=== PATIENT | male | born 1985 | race Asian ===

== ENCOUNTER 2016-10-21 18:33 | Inpatient (IN) | payer MEDICAID ==
--- NOTE | 2016-10-21 19:17 | ED Physician Chart ---
Chief Complaint/HPI - Patient Information Date Seen:: 10/21/16 Time Seen:: 19:00 Chief Complaint:: fever History of Present Illness:: THIS IS A 30 YO DIALYSIS PATIENT HERE WITH CONCERNED ABOUT HIS ABDOMINAL PAIN AND FAST HEART RATE. HE HAD DIALYSIS EARLIER TODAY. HE DENIES VOMITING AND NAUSEA. HE HAS BEEN HERE FOUR TIMES IN THE PAST. 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 HE IS HARD OF HEARING. HE ALSO STILL MAKES SOME URINE. HE DENIES A COUGH BUT HAS SOB AT TIMES. Allergies:: Allergies Allergy/AdvReac Type Severity Reaction Status Date / Time No Known Allergies Allergy Verified 02/20/16 12:38 Vitals:: Vital Signs - 8 hr 10/21/16 18:52 Temp 100.6 F HR 147 RR 16 BP 132/64 O2 Sat % 97 Historian:: Patient, Medical Records Review:: Nurse's Note Reviewed, Transfer documents Reviewed Review of Systems - Review of Systems General/Constitutional: Fever, No chills, No weight loss, Weakness, No diaphoresis, No edema, No loss of appetite Skin: No skin lesions, No rash, No bruising Head: No headache, No light-headedness Eyes: No loss of vision, No pain, No diplopia ENT: No earache, No nasal drainage, No sore throat, No tinnitus Neck: No neck pain, No swelling, No thyromegaly, No stiffness, No mass noted Cardio Vascular: No chest pain, No palpitations, No PND, No orthopnea, No edema Pulmonary: No SOB, No cough, No sputum, No wheezing GI: No nausea, No vomiting, No diarrhea, Pain, No melena, No hematochezia, No constipation, No hematemesis G/U: No dysuria, No frequency, No hematuria Musculoskeletal: Bone or joint pain, No back pain, No muscle pain Endocrine: No polyuria, No polydipsia Psychiatric: No prior psych history, No depression, No anxiety, No suicidal ideation Hematopoietic: No bruising, No lymphadenopathy Allergic/Immuno: No urticaria, No angioedema Neurological: No syncope, No focal symptoms, No weakness, No paresthesia, No headache, No seizure, No dizziness, No confusion, No vertigo Past Medical History - Past Medical History Obtainable: Yes Past Medical History: HTN, DM, ESRD, Arthritis Family History: None Social History: Non Smoker, No Alcohol, No Drug Use Surgical History: other (SHUNT PLACEMENT AND RIGHT KIDNEY TRANSPLANT) Family Medical History - Family Member Mother Ethnicity: Non- Living Status: Still Living Hx Family Cancer: No Hx Family Coronary Artery Disease: No Hx Family Congestive Heart Failure: No Hx Family Hypertension: No Hx Family Stroke: No Hx Family Diabetes: No Hx Family Seizures: No Hx Family Dementia: No Hx Family AIDS: No Hx Family HIV: No Hx Family COPD: No Hx Family Hepatitis: No Hx Family Psychiatric Problems: No Hx Family Tuberculosis: No Physical Exam - Physical Examination General/Constitutional: Awake, Well-developed, well-nourished, Alert, No distress, GCS 15, Non-toxic appearing, Ambulatory Head: Atraumatic Eyes: Lids, conjuctiva normal, PERRL, EOMI Skin: Nl inspection, No rash, No skin lesions, No ecchymosis, Well hydrated, No lymphadenopathy ENMT: External ears, nose nl, Nasal exam nl, Lips, teeth, gums nl Neck: Nontender, Full ROM w/o pain, No JVD, No nuchal rigidity, No bruit, No mass, No stridor Respiratory: Nl effort/Exclusion, Clear to Auscultation, No Wheeze/Rhonchi/Rales Cardio Vascular: RRR, No murmur, gallop, rubs, NL S1 S2 GI: No organomegaly, No hernia, Normal BS's, Nondistended, No mass/bruits, No McBurney tenderness Other GI comments:: GENERALIZE TENDERNESS WITH NO REBOUND. : No CVA tenderness Extremities: No tenderness or effusion, Full ROM, normal strength in all extremities, No edema, Normal digits & nails Neuro/Psych: Alert/oriented, DTR's symmetric, Normal sensory exam, Normal motor strength, Judgement/insight normal, Mood normal, Normal gait, No focal deficits Misc: normal gait, Normal back, No paraspinal tenderness Labs/Radiology/EKG Results - Lab Results Results: Abnormal Lab Results 10/21/16 10/21/16 10/21/16 19:12 19:12 19:12 WBC 16.4 H D RBC 4.06 L Hgb 11.3 L Hct 34.4 L D MCV 84.6 MCH 27.9 MCHC Differential 33.0 RDW 15.3 Plt Count 201 D MPV 7.8 Neutrophils % 81.2 H Lymphocytes % 8.5 L Monocytes % 9.5 Eosinophils % 0.8 Basophils % 0.0 PT 12.7 H INR 1.21 Sodium Potassium Chloride Carbon Dioxide Anion Gap BUN Creatinine Est GFR ( Amer) Est GFR (Non-Af Amer) BUN/Creatinine Ratio Glucose Whole Bld Lactic Acid Calcium Total Bilirubin AST ALT Alkaline Phosphatase Troponin I Total Protein Albumin Globulin Albumin/Globulin Ratio Triglycerides 87 Cholesterol 128 LDL Cholesterol Direct 31 L HDL Cholesterol 69 TSH 10/21/16 10/21/16 10/21/16 19:12 19:12 19:12 WBC RBC Hgb Hct MCV MCH MCHC Differential RDW Plt Count MPV Neutrophils % Lymphocytes % Monocytes % Eosinophils % Basophils % PT INR Sodium 131 L Potassium 3.8 Chloride 92 L Carbon Dioxide 21.5 Anion Gap 21.3 H BUN 31 H Creatinine 6.8 H* Est GFR ( Amer) 12.3 Est GFR (Non-Af Amer) 10.1 BUN/Creatinine Ratio 4.6 Glucose 208 H Whole Bld Lactic Acid Calcium 10.3 Total Bilirubin 2.0 H AST 82 H ALT 74 H Alkaline Phosphatase 193 H Troponin I 0.01 Total Protein 7.1 Albumin 4.4 Globulin 2.7 Albumin/Globulin Ratio 1.6 Triglycerides Cholesterol LDL Cholesterol Direct HDL Cholesterol TSH 1.28 10/21/16 19:12 WBC RBC Hgb Hct MCV MCH MCHC Differential RDW Plt Count MPV Neutrophils % Lymphocytes % Monocytes % Eosinophils % Basophils % PT INR Sodium Potassium Chloride Carbon Dioxide Anion Gap BUN Creatinine Est GFR ( Amer) Est GFR (Non-Af Amer) BUN/Creatinine Ratio Glucose Whole Bld Lactic Acid 1.08 Calcium Total Bilirubin AST ALT Alkaline Phosphatase Troponin I Total Protein Albumin Globulin Albumin/Globulin Ratio Triglycerides Cholesterol LDL Cholesterol Direct HDL Cholesterol TSH - Radiology Results Results: CT SCAN OF THE ABDOMEN = THE FINDING ARE CONSISTENT WITH SEVERLY DISTENDED GALLBLADDER, EVIDENCE OF PANCREATITIS. - EKG Interpretations EKG Time:: 18:56 Rate & Rhythm: 135 SINUS TACHYCARDIA Clarissa: RIGHT Intervals: NO ECTOPY NOTED Assessment - Assessment General Assessment: THIS PATIENT'S FINDINGS ARE CONSISTENT WITH GALLBLADDER DISEASE AND SINCE HE IS AN ESRD PATIENT HE SHOULD NEEDS AN EVALUATION BY GI AND THEN A SURGEON IF NECESSARY. THE PATIENT WAS GIVEN TYLENOL AND ANTIBIOTICS WITH A SMALL AMOUNT OF FLUIDS SINCE HE IS A DIALYSIS PATIENT. ED Septic Shock - . Is Septic Shock (SBP<90, OR Lactate>4 mmol\L) present?: No - <6hrs of presentation: Vital Signs: Vital Signs - 8 hr 10/21/16 18:52 Temp 100.6 F HR 147 RR 16 BP 132/64 O2 Sat % 97 Reassessment (Disposition) - Reassessment Reassessment Condition:: Improved - Diagnosis Diagnosis:: ACUTE CHOLECYSTITIS ESRD - Patient Disposition Discharge/Transfer:: Acute Care w/in this hosp Admitting Medical Physician:: Feliciano aDvis Condition at Disposition:: Improved ED Discharge Plan - Patient Disposition Admit/Discharge/Transfer: Acute Care w/in this hosp Condition at Disposition: Improved
[2016-10-21 19:30] LABS: % EOSINOPHILS 0.8 % (0.0-5.0); % LYMPHOCYTES 8.5 % (20.0-50.0); % MONOCYTES 9.5 % (2.0-10.0); % NEUTROPHILS 81.2 % (40.0-80.0); HEMOGLOBIN 11.3 gm/dL (13.2-17.3); MEAN CELL VOLUME 84.6 fl (80-99); MEAN CORPUSCULAR HEMOGLOBIN 27.9 pg (26.0-30.0); MEAN PLATELET VOLUME 7.8 fl; NEUTROPHILE ABSOLUTE 13.3 Th/cmm (1.8-8.0); RED BLOOD COUNT 4.06 Mil/cmm (4.30-5.70); RED CELL DISTRIBUTION WIDTH 15.3 % (11.5-20.0)
[2016-10-21 19:50] LABS: INR 1.21 (0.5-1.4); PROTHROMBIN TIME (TEST) 12.7 SECONDS (9.5-11.5)
[2016-10-21 19:53] LABS: HEMATOCRIT 34.4 % (39.0-49.0); WHITE BLOOD COUNT 16.4 Th/cmm (4.8-10.8)
[2016-10-21 19:54] LABS: PLATELET COUNT 201 Th/cmm (150-400)
[2016-10-21 20:19] LABS: ALB/GLOB RATIO 1.6 (1.0-1.8); ANION GAP 21.3 (7.0-16.0); BUN/CREATININE RATIO 4.6; CALCIUM SERUM 10.3 mg/dL (8.6-10.3); CARBON DIOXIDE 21.5 mEq/L (21.0-31.0); POTASSIUM SERUM 3.8 mEq/L (3.5-5.1)
[2016-10-21 20:20] LABS: CHOLESTEROL 128 mg/dL (<200); TRIGLYCERIDES 87 mg/dL (<150)
[2016-10-21 20:25] LABS: CREATININE - SERUM 6.8 mg/dL (0.7-1.3)
[2016-10-21] MEDS ORDERED: Sodium Chloride 0.45% 500 ML IV ONE (20:40)
[2016-10-21 22:43] VITALS: BP 109/63
[2016-10-21] MEDS ORDERED: Piperacillin Sodium/Tazobact 2.25 gm Vial IV ONE (22:46)
[2016-10-21] MEDS: D5-0.45NS 1,000 ML IV SCH (23:08)
[2016-10-22] MEDS: Morphine Sulfate 2 mg/mL 1mL Syr IVP PRN ×3 (03:45→21:15)
[2016-10-22] MEDS ORDERED: Piperacillin Sodium/Tazobact 2.25 gm Vial IV ONE (03:48)
--- NOTE | 2016-10-22 04:19 | Admit Criteria Form ---
Admit Criteria Forms - Admit Criteria Diagnosis: ABDOMINAL PAIN Clinical Indications for Admission to Inpatient Care (Place 'X' for any and all applicable criteria): Admission is indicated for ANY ONE of the following(1)(2)(3)(4)(5): [X]I. Inpatient admission required rather than observation care (Also use Abdominal Pain: Observation Care, as appropriate) because of ANY ONE of the following: [ ]a) Severe pain requiring acute inpatient management [X]b) Identification of etiology/finding that requires inpatient care (eg, aortic dissection, free air) [ ]c) Absent bowel sounds with complete ileus(6) [ ]d) Suspected toxic megacolon [ ]e) Severe electrolyte abnormalities requiring inpatient care [ ]f) High fever or infection requiring inpatient admission as indicated by ANY ONE of following(7)(8): [ ] i) Appropriate outpatient or observational care antimicrobial treatment unavailable, not effective, or not feasible [ ] ii) Documented bacteremia [ ] iii) Temperature > 104.9 degrees F (oral) [ ] iv) T >103.1 F (oral) or < 96.8 F(rectal) that does not respond to all emergency treatment measures [ ]g) Signs of intestinal obstruction [B] [ ]h) Hemodynamic instability [ ]i) IV fluid to replace significant ongoing losses (greater than 3 L/m2 per day) (12)(13) [ ]j) Percutaneous or open drainage (eg, abscess, biliary tract ) procedures [ ]k) Parenteral nutrition regimen that must be implemented on inpatient basis [ ]l) Other condition,treatment or monitoring requiring inpatient admission. [ ]II. Peritoneal signs present [ ]III. Surgery needed that cannot be performed on an ambulatory basis. [ ]IV. Evaluation requires patient to not eat or drink for extended period ( eg, more than 24 hours). [ ]V. Contraindications and/or Inappropriate clinical situations for Observational Care in patients with abdominal pain, when ANY ONE of the following is required: [ ]a) Thorough evaluation is required to prevent catastrophic events due to delays in diagnosing (e.g.Mesenteric ischemia) 1,3 [ ]b) Patient with severe pathology or with chronic symptoms unlikely to improve in the ED stay (3) [ ]. General contraindications and/or Inappropriate clinical situations for Observational Care in patients with abdominal pain, when ANY ONE of the following is required: [ ]a) Prediction of prolongation of LOS based on ANY ONE of the following may be considered as a contraindication for observational care 2, 3, 4, 5, 6, 7, 8, 9, 10, 11 [ ]i) Age > 65 yrs. [ ]ii) Patient arriving by ambulance [ ]iii) Patient with high acuity [ ]iv) Patient requiring vital sign monitoring [ ]v) Patient on IV medication [ ]b) Systolic blood pressures 180mmHg 3,12 [ ]c) Patient with altered mental status including delirium and other alteration of consciousness, (3) [ ]d) Patient whose discharge disposition will be to a senior living home or rehabilitation home should not be managed in Emergency Department Observation Unit. CMS rule requires 3 days hospital stay before such placement.3,13 [ ]e) Patient with failure to thrive due to broad array of etiologies 3,16,17 [ ]f) Inability to ambulate 3,14 Extended stay beyond goal length of stay may be needed for(2)(3): [ ]a) Persistent abdominal pain with suspected intra-abdominal process [ ]b) Diagnosed condition requiring continued stay (e.g., pancreatitis, complicated diverticulitis) [ ]c) Surgery (e.g., colectomy) The original [employer] content created by [employer] has been revised. The portions of the content which have been revised are identified through the use of italic text or in bold, and [facility] has neither reviewed nor approved the modified material.All other unmodified content is copyright [facility]. Please see references footnoted in the original [facility] edition 2016
--- NOTE | 2016-10-22 09:45 | Diagnostic Imaging Report ---
Portable chest x-ray History: Shortness of breath Allowing for portable technique the heart size is normal. No focal pulmonary parenchymal processes. No hilar or mediastinal abnormalities. Vascular stent noted in the left axillary region along with multiple surgical clips. Seen in the soft tissues adjacent to the right humerus. Impression: 1. No acute abnormalities 2. Surgical changes
--- NOTE | 2016-10-22 09:48 | Diagnostic Imaging Report ---
CT scan abdomen and pelvis without intravenous contrast HISTORY: Pain Total DLP equals 247 CTDI equals 5.2 Axial sections were obtained from the xiphoid process down to the pubic symphysis. The exam is limited due to the absence of oral/bowel contrast and a limited amount of intra-abdominal fat. The liver exhibits a homogeneous parenchyma. No focal lesions. The spleen appears normal. Numerous pancreatic calcifications are seen consistent with changes of chronic pancreatitis. Ascites noted in the right upper abdomen. There is a markedly dilated gallbladder with apparent wall thickening. Inflammatory change (cholecystitis) cannot be excluded. Poor delineation of the adjacent bowel wall margins. The kidneys are atrophic bilaterally. Transplant kidney noted in the right iliac fossa. This is associated 2 calculi without hydronephrosis. The largest measures approximate 1.0 cm. There is a distended stool-filled rectum and lower sigmoid colon. IMPRESSION: 1. Markedly distended somewhat thick-walled gallbladder. Inflammatory change (cholecystitis) cannot be noted. 2. Ascites most probably within the right upper quadrant of the abdomen. 3. Findings consistent with changes of chronic pancreatitis 4. Atrophic jamul kidneys associated with a right pelvic transplant kidney associated with nonobstructing calculi
--- NOTE | 2016-10-22 10:51 | General Progress Note ---
Subjective - Review of Systems Service Date: 10/22/16 Events since last encounter: consult dictated mother called for info Has GB stones, high LFT MRCP ordered Objective - Results Result Diagrams: 10/21/16 19:12 10/21/16 19:12 Recent Labs: Laboratory Last Values WBC 16.4 Th/cmm (4.8-10.8) H D 10/21/16 19:12 RBC 4.06 Mil/cmm (4.30-5.70) L 10/21/16 19:12 Hgb 11.3 gm/dL (13.2-17.3) L 10/21/16 19:12 Hct 34.4 % (39.0-49.0) L D 10/21/16 19:12 MCV 84.6 fl (80-99) 10/21/16 19:12 MCH 27.9 pg (26.0-30.0) 10/21/16 19:12 MCHC Differential 33.0 pg (28.0-36.0) 10/21/16 19:12 RDW 15.3 % (11.5-20.0) 10/21/16 19:12 Plt Count 201 Th/cmm (150-400) D 10/21/16 19:12 MPV 7.8 fl 10/21/16 19:12 Neutrophils % 81.2 % (40.0-80.0) H 10/21/16 19:12 Lymphocytes % 8.5 % (20.0-50.0) L 10/21/16 19:12 Monocytes % 9.5 % (2.0-10.0) 10/21/16 19:12 Eosinophils % 0.8 % (0.0-5.0) 10/21/16 19:12 Basophils % 0.0 % (0.0-2.0) 10/21/16 19:12 PT 12.7 SECONDS (9.5-11.5) H 10/21/16 19:12 INR 1.21 (0.5-1.4) 10/21/16 19:12 Sodium 131 mEq/L (136-145) L 10/21/16 19:12 Potassium 3.8 mEq/L (3.5-5.1) 10/21/16 19:12 Chloride 92 mEq/L (98-107) L 10/21/16 19:12 Carbon Dioxide 21.5 mEq/L (21.0-31.0) 10/21/16 19:12 Anion Gap 21.3 (7.0-16.0) H 10/21/16 19:12 BUN 31 mg/dL (7-25) H 10/21/16 19:12 Creatinine 6.8 mg/dL (0.7-1.3) H* 10/21/16 19:12 Est GFR ( Amer) 12.3 ml/min (>90) 10/21/16 19:12 Est GFR (Non-Af Amer) 10.1 ml/min 10/21/16 19:12 BUN/Creatinine Ratio 4.6 10/21/16 19:12 Glucose 208 mg/dL (70-105) H 10/21/16 19:12 Hemoglobin A1c % 8.7 % (4.0-6.0) H 10/21/16 19:12 Whole Bld Lactic Acid 1.08 mmol/L (0.60-1.99) 10/21/16 19:12 Calcium 10.3 mg/dL (8.6-10.3) 10/21/16 19:12 Total Bilirubin 2.0 mg/dL (0.3-1.0) H 10/21/16 19:12 AST 82 U/L (13-39) H 10/21/16 19:12 ALT 74 U/L (7-52) H 10/21/16 19:12 Alkaline Phosphatase 193 U/L (34-104) H 10/21/16 19:12 Troponin I 0.01 ng/mL (0.01-0.05) 10/21/16 19:12 Total Protein 7.1 gm/dL (6.0-8.3) 10/21/16 19:12 Albumin 4.4 gm/dL (4.2-5.5) 10/21/16 19:12 Globulin 2.7 gm/dL 10/21/16 19:12 Albumin/Globulin Ratio 1.6 (1.0-1.8) 10/21/16 19:12 Triglycerides 87 mg/dL (<150) 10/21/16 19:12 Cholesterol 128 mg/dL (<200) 10/21/16 19:12 LDL Cholesterol Direct 31 mg/dL (75-193) L 10/21/16 19:12 HDL Cholesterol 69 mg/dL (23-92) 10/21/16 19:12 TSH 1.28 uIU/ml (0.34-5.60) 10/21/16 19:12 RPR NONREACTIVE (NONREACTIVE) 10/21/16 19:12 - Physical Exam Vitals and I&O: Vital Signs Temp 98.6 F 10/22/16 08:00 Pulse 116 10/22/16 08:00 Resp 16 10/22/16 08:00 BP 99/62 10/22/16 08:00 Pulse Ox 96 10/22/16 08:00 Intake & Output 10/21/16 10/22/16 10/22/16 18:59 06:59 18:59 Intake Total 150 Output Total 0 Balance 150 Weight (lbs) 42.683 kg Intake: Intake, IV Amount 100 Piperacillin Sodium/ 100 Tazobact 2.25 gm In Sodium Chloride 0.9% 50 ml @ 100 mls/hr IV Q8HR [facility] Rx#:[id number] Oral 50 Output: Urine 0 Active Medications: Current Medications Piperacillin Sod/Tazobactam (Sod 2.25 gm/ Sodium Chloride) 50 mls @ 100 mls/hr IV Q8HR RADHA Stop: 12/20/16 22:59 Last Infusion: 10/22/16 06:10 Dose: Infused Dextrose/Sodium Chloride (D5-0.45ns) 1,000 mls @ 50 mls/hr IV .Q20H RADHA Stop: 12/20/16 21:44 Last Admin: 10/21/16 23:08 Dose: 50 mls/hr Morphine Sulfate (Morphine) 2 mg IVP Q3H PRN PRN Reason: Severe Pain Stop: 12/20/16 22:18 Last Admin: 10/22/16 03:45 Dose: 2 mg - Procedures Procedures: Procedures Procedure Code Date EGD BIOPSY SINGLE/MULTIPLE 59380 02/20/16 EXCISION OF DUODENUM, ENDO, DIAGN [id number] 02/20/16 EXCISION OF STOMACH, PYLORUS, ENDO, DIAGN [id number] 02/20/16 PERFORMANCE OF URINARY FILTRATION, SINGLE [id number] 02/20/16 Assessment/Plan - Problem List Patient Problems: All Active Problems NOT FEELING GOOD WITH NAUSEA (Acute) The administrative codes within the [employer] content you are accessing may have as of 02/06/2016. Please contact your IT Dept/Help Desk and request the latest Regulatory release be installed. IT Dept/Help Desk- Please refer to our FAQ page ([email or web address]) or contact [email or web address] Customer Support at [email or web address] (Acute ~02/20/16)
--- NOTE | 2016-10-22 11:11 | Consultation ---
DATE OF CONSULTATION: 10/22/2016 REFERRING PHYSICIAN: Feliciano Davis M.D. REASON FOR CONSULTATION: Abdominal pain. Thank you for referring this patient to me. This is a 30-year-old male who came in to the Emergency Room because of abdominal pain for the last 7 days with nausea and vomiting. Pain mostly in the upper abdomen. The patient has had multiple admissions to this facility. On admission, the patient underwent a CT scan of the abdomen, which showed a markedly distended gallbladder. Ascites was also noted. Findings consistent with chronic pancreatitis with atrophic kidneys. Chest x-ray, no acute abnormalities. LABORATORY STUDIES: WBC is elevated at 16,400, neutrophils of 81%. The blood sugar was high at 208, BUN is 31, creatinine of 6.8, bilirubin of 2.0. AST of 82, ALT of 74, and alkaline phosphatase 193. PAST HISTORY: The patient was born with atrophic kidneys and apparently underwent kidney transplant at age 2 which lasted for 23 years. Following failure the patient has been on hemodialysis. Additionally, he had tube feedings up until 1987. PHYSICAL EXAMINATION: GENERAL: The patient is in quite a bit of pain. Scars in the abdomen are noted, which are multiple. ABDOMEN: Abdomen per se is flat and soft. There is tenderness in the right upper abdomen. IMPRESSION: 1. Calculous cholecystitis. 2. Atrophic kidneys with failed kidney transplant. 3. End-stage renal disease, on hemodialysis. RECOMMENDATIONS: The mother was called via telephone, who gave all the information. We will order an MRCP. The patient needs endocrine evaluation for his persistent pancreatitis and high sugars for which he does not take any medication now. We will follow with you. [facility]# [id number]
--- NOTE | 2016-10-22 17:13 | History & Physical ---
ADMIT DATE: 10/22/2016 CHIEF COMPLAINT: Abdominal pain. 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 He did have a functioning transplant kidney for 23 years. Unfortunately, his body decided to reject and he is on dialysis for last 5 years, also has a diagnosis of diabetes mellitus and congenital deafness. He wears hearing aids and takes Keppra for his possible seizure, brought him to the Emergency Room by family member for evaluation of abdominal pain for last 1 week, intermittent, associated with nausea and vomiting. When the patient arrived in the Emergency Room noted to have leukocytosis with cholelithiasis. The patient is advised to be admitted in the hospital for further treatment. PAST MEDICAL HISTORY: Remarkable for: 1. Diabetes. 2. Seizure disorder. 3. Chronic renal failure, on hemodialysis. 4. Status post failed kidney transplant. 5. Anemia of chronic kidney disease. MEDICATIONS AT HOME: List has been reviewed and reconciled appropriately during this admission. ALLERGIES: The patient is not allergic to medications. SOCIAL HISTORY: He is currently disabled, lives with his mother and father. The patient has no smoking cigarette, alcohol or drug use. FAMILY MEDICAL HISTORY: Remarkable for diabetes. REVIEW OF SYSTEMS: The patient denies any headache. Denies any blurred vision, double vision. Denies any dysphagia, odynophagia. Denies any fever or chills. Denies any chest pain. Denies any cough. Denies any shortness of breath. He does have abdominal pain with some nausea, but no vomiting, no diarrhea, no hematuria, hematochezia, melena. No seizure or syncopal episode. PHYSICAL EXAMINATION: GENERAL: A 30-year-old ill-appearing male lying in the bed without any acute distress. VITAL SIGNS: T-max is 98.2, pulse is 121, respiratory rate is 18, blood pressure was 96/63 upon arrival to Emergency Room. HEENT: Normocephalic, atraumatic. Extraocular muscles are intact. Tongue was pink and coated. Poor dentition noted. NECK: Supple, no JVD, no lymphadenopathy, thyromegaly or carotid bruit. HEART: Both heart sounds are regular, tachycardia noted. CHEST: Equal in expansion. No expiratory wheezing. ABDOMEN: Soft. Well-healed surgical scar ____ stated transplanted kidney noted. Multiple also surgical scars noted. Bowel sounds are present. Significant tenderness to the upper part of the abdomen noted. No palpable mass. EXTREMITIES: No edema, no cyanosis. AV graft in the right upper extremity noted with good bruit. NEUROLOGIC: Remarkable for bilateral hearing loss with decreased power throughout the upper and lower extremity noted. AVAILABLE DIAGNOSTIC DATA: Performed in the Emergency Room has been reviewed. CLINICAL IMPRESSION: 1. Acute onset of abdominal pain associated with nausea and abnormal liver function test. Workup did reveal the patient has distended gallbladder, suspect patient has most likely acute cholelithiasis and cholecystitis causing the symptoms. 2. Diabetes mellitus. 3. End-stage renal disease, on hemodialysis. 4. Bilateral hearing loss. 5. Anemia of chronic kidney disease. PLAN: 1. Admit this patient to telemetry unit. 2. N.p.o. 3. IV fluid. 4. Basal insulin and sliding scale insulin. 5. GI and surgical evaluation. 6. Nephrology to follow up on hemodialysis. 7. Appropriate home medicine reconciliation. 8. Symptoms management. 9. Medication management 10. Follow lab. 11. Follow job service consultant recommendations. 12. Care plan reviewed and discussed with the patient and the patient's family. I did discuss with patient's mother over the phone about the patient's condition and he remains full code. JOB# [id number]
[2016-10-22] MEDS: D5-0.45NS 1,000 ML IV SCH (17:57)
[2016-10-22] MEDS: INSULIN ASPART SLIDING SCALE 100 UNITS/ML UNIT SUBQ SCH (18:00)
--- NOTE | 2016-10-22 20:44 | Consultation ---
DATE OF CONSULTATION: 10/22/2016 REASON FOR CONSULTATION: Abdominal pain, abnormal liver enzymes. HISTORY OF PRESENT ILLNESS: This consult was obtained through the request of Dr. Davis for this 30-year-old very poor historian. The patient in severe pain with history of end-stage renal disease on hemodialysis, hypertension, diabetes, and arthritis admitted from dialysis unit because of severe abdominal pain and tachycardia. Information was obtained from the chart. I am trying to communicate with patient whether by Ethiopian or by Hebrew. He is just mumbling and keeps shaking his head yes to everything. Apparently the patient has been having pain for several days, got worse, he had kidney transplant before and it failed. He had this pain a few times in the past. PAST MEDICAL HISTORY: Diabetes, hypertension, end-stage renal disease, arthritis. PAST SURGICAL HISTORY: Had kidney transplant, and shunt related surgeries. SOCIAL HISTORY: Not known. The patient according to the chart is a nonsmoker, nonalcoholic, or IV drug abuser. FAMILY HISTORY: Noncontributory. ALLERGIES: No known drug allergies. MEDICATIONS: At this time the patient has been started on Zosyn. He received also Rocephin. REVIEW OF SYSTEMS: Unreliable. PHYSICAL EXAMINATION: GENERAL: The patient is arousable in severe distress. VITAL SIGNS: Blood pressure is 99/62, heart rate 116, respiratory rate 16, temperature 98.2. HEAD AND NECK: Pupils reactive to light and accommodation. Sclerae not icteric. Conjunctiva not pale. Extraocular muscles could not be tested. Oral cavity, dry mucous membrane. NECK: Supple, no jugular venous distention, no carotid bruit or lymph node. CHEST: Good respiratory movements. LUNGS: Clear to auscultation. CARDIOVASCULAR: Regular rate and rhythm, no murmur or gallop. ABDOMEN: Firm, guarding, severe tenderness, there were scars of previous surgery. EXTREMITIES: Lower extremities, no edema. CENTRAL NERVOUS SYSTEM: The patient is moving 4 extremities. LABORATORY DATA: White count 16.4, H and H 11.3 and 34.4, with platelets of 201. PT is 12.7 seconds, BUN is 31, creatinine of 6.8, bilirubin is 2, AST 82, ALT 74, alkaline phosphatase 193. The patient had a CAT scan, which showed severely distended gallbladder with free fluid throughout the right upper quadrant extending to the right lower quadrant suggestive of cholecystitis. There was also evidence of chronic pancreatitis. IMPRESSION: A 30-year-old with abdominal pain, possible cholecystitis. ASSESSMENT AND PLAN: Abdominal pain, most probably cholecystitis. Other differential would be perforated viscous,but no free air, but this picture in anyway favors acute abdomen. At this time, the patient is scheduled for a HIDA scan. Meanwhile, continue with IV fluids. Continue with IV antibiotics, more than likely would need exploration. Other medical problems such as diabetes, hypertension, end-stage renal disease, etc., as per Dr. Davis. Thank you, Dr. Davis for allowing me to participate in the care of this patient. If you have any further questions, please let me know. [facility]# [id number] ALVIN
[2016-10-23] MEDS: Morphine Sulfate 2 mg/mL 1mL Syr IVP PRN ×2 (01:10→05:47)
[2016-10-23 05:57] LABS: % BASOPHILS 0.7 % (0.0-2.0); % EOSINOPHILS 4.2 % (0.0-5.0); % LYMPHOCYTES 11.4 % (20.0-50.0); % MONOCYTES 8.2 % (2.0-10.0); % NEUTROPHILS 75.5 % (40.0-80.0); HEMOGLOBIN 9.8 gm/dL (13.2-17.3); MEAN CELL VOLUME 85.2 fl (80-99); MEAN CORPUSCULAR HEMOGLOBIN 28.1 pg (26.0-30.0); MEAN PLATELET VOLUME 7.6 fl; NEUTROPHILE ABSOLUTE 10.9 Th/cmm (1.8-8.0); PLATELET COUNT 219 Th/cmm (150-400); RED BLOOD COUNT 3.47 Mil/cmm (4.30-5.70); RED CELL DISTRIBUTION WIDTH 15.5 % (11.5-20.0)
[2016-10-23] MEDS: INSULIN ASPART SLIDING SCALE 100 UNITS/ML UNIT SUBQ SCH ×4 (05:57→18:10)
[2016-10-23 06:00] LABS: ANION GAP 17.5 (7.0-16.0); BILIRUBIN,TOTAL 1.2 mg/dL (0.3-1.0); BUN/CREATININE RATIO 5.3; CALCIUM SERUM 9.7 mg/dL (8.6-10.3); CARBON DIOXIDE 22.2 mEq/L (21.0-31.0); HEMATOCRIT 29.6 % (39.0-49.0); POTASSIUM SERUM 3.7 mEq/L (3.5-5.1); WHITE BLOOD COUNT 14.5 Th/cmm (4.8-10.8)
[2016-10-23 06:13] LABS: CREATININE - SERUM 9.9 mg/dL (0.7-1.3)
--- NOTE | 2016-10-23 10:17 | General Progress Note ---
Subjective - Review of Systems Service Date: 10/23/16 Events since last encounter: persistent LFT elevation very tender RUQ BP on low side HIDA non-visualization MRCP ordered Objective - Results Result Diagrams: 10/23/16 04:57 10/23/16 04:57 Recent Labs: Laboratory Last Values WBC 14.5 Th/cmm (4.8-10.8) H 10/23/16 04:57 RBC 3.47 Mil/cmm (4.30-5.70) L 10/23/16 04:57 Hgb 9.8 gm/dL (13.2-17.3) L 10/23/16 04:57 Hct 29.6 % (39.0-49.0) L D 10/23/16 04:57 MCV 85.2 fl (80-99) 10/23/16 04:57 MCH 28.1 pg (26.0-30.0) 10/23/16 04:57 MCHC Differential 33.0 pg (28.0-36.0) 10/23/16 04:57 RDW 15.5 % (11.5-20.0) 10/23/16 04:57 Plt Count 219 Th/cmm (150-400) 10/23/16 04:57 MPV 7.6 fl 10/23/16 04:57 Neutrophils % 75.5 % (40.0-80.0) 10/23/16 04:57 Lymphocytes % 11.4 % (20.0-50.0) L 10/23/16 04:57 Monocytes % 8.2 % (2.0-10.0) 10/23/16 04:57 Eosinophils % 4.2 % (0.0-5.0) 10/23/16 04:57 Basophils % 0.7 % (0.0-2.0) 10/23/16 04:57 PT 12.7 SECONDS (9.5-11.5) H 10/21/16 19:12 INR 1.21 (0.5-1.4) 10/21/16 19:12 Sodium 131 mEq/L (136-145) L 10/23/16 04:57 Potassium 3.7 mEq/L (3.5-5.1) 10/23/16 04:57 Chloride 95 mEq/L (98-107) L 10/23/16 04:57 Carbon Dioxide 22.2 mEq/L (21.0-31.0) 10/23/16 04:57 Anion Gap 17.5 (7.0-16.0) H 10/23/16 04:57 BUN 52 mg/dL (7-25) H 10/23/16 04:57 Creatinine 9.9 mg/dL (0.7-1.3) H* 10/23/16 04:57 Est GFR ( Amer) 8.0 ml/min (>90) 10/23/16 04:57 Est GFR (Non-Af Amer) 6.6 ml/min 10/23/16 04:57 BUN/Creatinine Ratio 5.3 10/23/16 04:57 Glucose 163 mg/dL (70-105) H 10/23/16 04:57 POC Glucose 160 MG/DL (70 - 105) H 10/23/16 05:37 Hemoglobin A1c % 8.7 % (4.0-6.0) H 10/21/16 19:12 Whole Bld Lactic Acid 1.08 mmol/L (0.60-1.99) 10/21/16 19:12 Calcium 9.7 mg/dL (8.6-10.3) 10/23/16 04:57 Total Bilirubin 1.2 mg/dL (0.3-1.0) H 10/23/16 04:57 AST 76 U/L (13-39) H 10/23/16 04:57 ALT 73 U/L (7-52) H 10/23/16 04:57 Alkaline Phosphatase 206 U/L (34-104) H 10/23/16 04:57 Troponin I 0.01 ng/mL (0.01-0.05) 10/21/16 19:12 Total Protein 6.7 gm/dL (6.0-8.3) 10/23/16 04:57 Albumin 3.4 gm/dL (4.2-5.5) L 10/23/16 04:57 Globulin 3.3 gm/dL 10/23/16 04:57 Albumin/Globulin Ratio 1.0 (1.0-1.8) 10/23/16 04:57 Triglycerides 87 mg/dL (<150) 10/21/16 19:12 Cholesterol 128 mg/dL (<200) 10/21/16 19:12 LDL Cholesterol Direct 31 mg/dL (75-193) L 10/21/16 19:12 HDL Cholesterol 69 mg/dL (23-92) 10/21/16 19:12 Lipase 3 U/L (11-82) L 10/23/16 04:57 TSH 1.28 uIU/ml (0.34-5.60) 10/21/16 19:12 RPR NONREACTIVE (NONREACTIVE) 10/21/16 19:12 - Physical Exam Vitals and I&O: Vital Signs Temp 99.4 F 10/23/16 08:00 Pulse 111 10/23/16 08:00 Resp 17 10/23/16 08:00 BP 92/63 10/23/16 08:00 Pulse Ox 97 10/23/16 08:00 Intake & Output 10/22/16 10/23/16 10/23/16 18:59 06:59 18:59 Intake Total 990.833 100 Output Total 0 Balance 990.833 100 Weight (lbs) 42.638 kg 43.715 kg Intake: Intake, IV Amount 990.833 100 D5-0.45NS 1,000 ml @ 50 940.833 mls/hr IV .Q20H [facility] Rx#: [id number] Piperacillin Sodium/ 50 100 Tazobact 2.25 gm In Sodium Chloride 0.9% 50 ml @ 100 mls/hr IV Q8HR [facility] Rx#:[id number] Output: Urine 0 Other: # Bowel Movements 0 Stool Characteristics Soft Active Medications: Current Medications Piperacillin Sod/Tazobactam (Sod 2.25 gm/ Sodium Chloride) 50 mls @ 100 mls/hr IV Q8HR [facility] Stop: 12/20/16 22:59 Last Infusion: 10/23/16 05:33 Dose: Infused Dextrose/Sodium Chloride (D5-0.45ns) 1,000 mls @ 50 mls/hr IV .Q20H [facility] Stop: 12/20/16 21:44 Last Admin: 10/22/16 17:57 Dose: 50 mls/hr Insulin Aspart (Novolog Insulin Sliding Scale) 0 units SUBQ Q6HR [facility] PRN Reason: Protocol Stop: 12/21/16 17:59 Last Admin: 10/23/16 05:57 Dose: Not Given Levetiracetam (Keppra) 500 mg PO BID [facility] Stop: 12/21/16 16:59 Last Admin: 10/23/16 09:35 Dose: 500 mg Morphine Sulfate (Morphine) 2 mg IVP Q3H PRN PRN Reason: Severe Pain Stop: 12/20/16 22:18 Last Admin: 10/23/16 05:47 Dose: 2 mg - Procedures Procedures: Procedures Procedure Code Date EGD BIOPSY SINGLE/MULTIPLE 60810 02/20/16 EXCISION OF DUODENUM, ENDO, DIAGN [id number] 02/20/16 EXCISION OF STOMACH, PYLORUS, ENDO, DIAGN [id number] 02/20/16 PERFORMANCE OF URINARY FILTRATION, SINGLE [id number] 02/20/16 Assessment/Plan - Problem List Patient Problems: All Active Problems NOT FEELING GOOD WITH NAUSEA (Acute) The administrative codes within the [employer] content you are accessing may have as of 02/06/2016. Please contact your IT Dept/Help Desk and request the latest Regulatory release be installed. IT Dept/Help Desk- Please refer to our FAQ page ([email or web address]) or contact [employer] Customer Support at [email or web address] (Acute ~02/20/16) Nutritional Asmnt/Malnutr-PDOC - Dietary Evaluation Malnutrition Findings (Please click <Entered> for more info): Nutritional Asmnt/Malnutrition Start: 10/22/16 11: 33 Text: Status: Complete Freq: Document 10/22/16 11:33 GSUN (Rec: 10/22/16 11:58 [email or web address] [email or web address]) Nutritional Asmnt/Malnutrition Patient General Information Nutritional Screening High Risk Screening Diagnosis ER: acute cholecystitis, ESRD Pertinent Medical Hx/Surgical Hx ER: HTN, DM, ESRD on dialysis, arthritis Subjective Information 30 year old male. Per ER notes , pt is a kidney transplant failure on dialysis 3 times a week, recieved dialysis 10/21. 10/21 CT abdomen:distended gallbladder, chronic pancreatitis. Pt appeared thin overall, possible mild wasting to shoulders, non- severe. RD asked about UBW/dry weight, if pt has spoken to dietitian at dialysis, explained [facility] renal diet after NPO, to all pt nodded. Pt finally said "my pain is so bad." Unable to provide edu at this time. Current Diet Order/ Nutrition Support NPO Pertinent Medications D5-0.45ns, morphine Pertinent Labs 10/21: BUN 31H, creatinine 6.8H , glucose 208H, A1c 8.7H Nutritional Hx/Data Height 1.52 m Height (Calculated Centimeters) 152.4 Current Weight (lbs) 42.774 kg Weight (Calculated Kilograms) 42.8 Weight (Calculated Grams) 81852.8 Ord Body Weight 106 Weight Status Underweight GI Symptoms Skin Integrity/Comment: Rohit 16. Skin intact. Estimated Nutritional Goals Calories/Kcals/Kg IBW 106lb/48.2kg Kcals Calculated 1446-1687kcal (30-35kcal/kg) Protein Calculated 63-72g (1.3-1.5g/kg) Fluid: ml 1446-1687ml (1ml/kcal) Nutritional Problem 3. Problem Problem Altered nutrition related laboratory values related to Etiology DM aeb Signs/Symptoms: H&P, A1c 8.7H, gglucose 208H on adm 2. Problem Problem Altered GI function related to Etiology unknown etiology aeb Signs/Symptoms: CT: distended gallbladder and chronic pancreatitis, currently NPO 1. Problem Problem Impaired nutrient utilization related to Etiology ESRD aeb Signs/Symptoms: pt is on dialysis, BUN 31H, creatinine 6.8H Intervention/Recommendation Comments 1. When approrpaite to resume diet, recommend [id number] renal diet with Novasource Renal supplement BID in place of beverages. Explained diet to pt, pt nodded. 2. Provide renal [facility] diet education as able. Pt appear to unable to hold conversation at this time due to severe pain. Expected Outcomes/Goals Expected Outcomes/Goals 1. Pt to meet 100% of estimated nutritional needs. 2. Weight trend towards IBW.
--- NOTE | 2016-10-23 10:46 | Diagnostic Imaging Report ---
Radionuclide biliary scan (HIDA scan) HISTORY: Pain 5.0 mCi technetium labeled biliary age and was using the exam. There is normal hepatic uptake and clearance. There is excretion through the common bile duct and into the small bowel. No definite gallbladder activity is seen through 2 hours. IMPRESSION: 1. Nonvisualization of the gallbladder. Findings are consistent with cystic duct obstruction. Clinical correlation is needed.
[2016-10-23] MEDS: D5-0.45NS 1,000 ML IV SCH (14:27)
[2016-10-24] MEDS: INSULIN ASPART SLIDING SCALE 100 UNITS/ML UNIT SUBQ SCH ×4 (00:35→18:00)
[2016-10-24] MEDS: HYDROmorphone 1 mg/mL 1mL Syr IVP PRN ×3 (08:48→22:52)
--- NOTE | 2016-10-24 12:14 | General Progress Note ---
Subjective - Review of Systems Service Date: 10/24/16 Events since last encounter: await [facility] Objective - Results Result Diagrams: 10/23/16 04:57 10/23/16 04:57 Recent Labs: Laboratory Last Values WBC 14.5 Th/cmm (4.8-10.8) H 10/23/16 04:57 RBC 3.47 Mil/cmm (4.30-5.70) L 10/23/16 04:57 Hgb 9.8 gm/dL (13.2-17.3) L 10/23/16 04:57 Hct 29.6 % (39.0-49.0) L D 10/23/16 04:57 MCV 85.2 fl (80-99) 10/23/16 04:57 MCH 28.1 pg (26.0-30.0) 10/23/16 04:57 MCHC Differential 33.0 pg (28.0-36.0) 10/23/16 04:57 RDW 15.5 % (11.5-20.0) 10/23/16 04:57 Plt Count 219 Th/cmm (150-400) 10/23/16 04:57 MPV 7.6 fl 10/23/16 04:57 Neutrophils % 75.5 % (40.0-80.0) 10/23/16 04:57 Lymphocytes % 11.4 % (20.0-50.0) L 10/23/16 04:57 Monocytes % 8.2 % (2.0-10.0) 10/23/16 04:57 Eosinophils % 4.2 % (0.0-5.0) 10/23/16 04:57 Basophils % 0.7 % (0.0-2.0) 10/23/16 04:57 PT 12.7 SECONDS (9.5-11.5) H 10/21/16 19:12 INR 1.21 (0.5-1.4) 10/21/16 19:12 Sodium 131 mEq/L (136-145) L 10/23/16 04:57 Potassium 3.7 mEq/L (3.5-5.1) 10/23/16 04:57 Chloride 95 mEq/L (98-107) L 10/23/16 04:57 Carbon Dioxide 22.2 mEq/L (21.0-31.0) 10/23/16 04:57 Anion Gap 17.5 (7.0-16.0) H 10/23/16 04:57 BUN 52 mg/dL (7-25) H 10/23/16 04:57 Creatinine 9.9 mg/dL (0.7-1.3) H* 10/23/16 04:57 Est GFR ( Amer) 8.0 ml/min (>90) 10/23/16 04:57 Est GFR (Non-Af Amer) 6.6 ml/min 10/23/16 04:57 BUN/Creatinine Ratio 5.3 10/23/16 04:57 Glucose 163 mg/dL (70-105) H 10/23/16 04:57 POC Glucose 134 MG/DL (70 - 105) H 10/24/16 06:11 Hemoglobin A1c % 8.7 % (4.0-6.0) H 10/21/16 19:12 Whole Bld Lactic Acid 1.08 mmol/L (0.60-1.99) 10/21/16 19:12 Calcium 9.7 mg/dL (8.6-10.3) 10/23/16 04:57 Total Bilirubin 1.2 mg/dL (0.3-1.0) H 10/23/16 04:57 AST 76 U/L (13-39) H 10/23/16 04:57 ALT 73 U/L (7-52) H 10/23/16 04:57 Alkaline Phosphatase 206 U/L (34-104) H 10/23/16 04:57 Troponin I 0.01 ng/mL (0.01-0.05) 10/21/16 19:12 Total Protein 6.7 gm/dL (6.0-8.3) 10/23/16 04:57 Albumin 3.4 gm/dL (4.2-5.5) L 10/23/16 04:57 Globulin 3.3 gm/dL 10/23/16 04:57 Albumin/Globulin Ratio 1.0 (1.0-1.8) 10/23/16 04:57 Triglycerides 87 mg/dL (<150) 10/21/16 19:12 Cholesterol 128 mg/dL (<200) 10/21/16 19:12 LDL Cholesterol Direct 31 mg/dL (75-193) L 10/21/16 19:12 HDL Cholesterol 69 mg/dL (23-92) 10/21/16 19:12 Lipase 3 U/L (11-82) L 10/23/16 04:57 TSH 1.28 uIU/ml (0.34-5.60) 10/21/16 19:12 RPR NONREACTIVE (NONREACTIVE) 10/21/16 19:12 - Physical Exam Vitals and I&O: Vital Signs Temp 99.9 F 10/24/16 07:47 Pulse 103 10/24/16 07:47 Resp 20 10/24/16 07:47 BP 96/60 10/24/16 07:47 Pulse Ox 97 10/24/16 07:47 Intake & Output 10/23/16 10/24/16 10/24/16 18:59 06:59 18:59 Intake Total 1050 250 0 Output Total 0 150 Balance 1050 250 -150 Weight (lbs) 43.715 kg 44.452 kg 44.452 kg Intake: Intake, IV Amount 1050 50 D5-0.45NS 1,000 ml @ 50 1000 mls/hr IV .Q20H [facility] Rx#: [id number] Piperacillin Sodium/ 50 50 Tazobact 2.25 gm In Sodium Chloride 0.9% 50 ml @ 100 mls/hr IV Q8HR [facility] Rx#:[id number] Oral 200 0 Output: Urine 0 150 Other: # Voids 0 1 # Bowel Movements 1 0 Active Medications: Current Medications Acetaminophen (Tylenol Extra Strength) 500 mg PO Q6H PRN PRN Reason: FEVER Stop: 12/22/16 16:55 Hydromorphone HCl (Dilaudid) 1 mg IVP Q4HR PRN PRN Reason: abd pain Stop: 12/22/16 16:45 Last Admin: 10/24/16 08:48 Dose: 1 mg Piperacillin Sod/Tazobactam (Sod 2.25 gm/ Sodium Chloride) 50 mls @ 100 mls/hr IV Q8HR [facility] Stop: 12/20/16 22:59 Last Admin: 10/24/16 06:08 Dose: 100 mls/hr Dextrose/Sodium Chloride (D5-0.45ns) 1,000 mls @ 50 mls/hr IV .Q20H [facility] Stop: 12/20/16 21:44 Last Admin: 10/23/16 14:27 Dose: 50 mls/hr Insulin Aspart (Novolog Insulin Sliding Scale) 0 units SUBQ Q6HR [facility] PRN Reason: Protocol Stop: 12/21/16 17:59 Last Admin: 10/24/16 07:56 Dose: Not Given Levetiracetam (Keppra) 500 mg PO BID [facility] Stop: 12/21/16 16:59 Last Admin: 10/24/16 08:42 Dose: Not Given - Procedures Procedures: Procedures Procedure Code Date EGD BIOPSY SINGLE/MULTIPLE 67872 02/20/16 EXCISION OF DUODENUM, ENDO, DIAGN [id number] 02/20/16 EXCISION OF STOMACH, PYLORUS, ENDO, DIAGN [id number] 02/20/16 PERFORMANCE OF URINARY FILTRATION, SINGLE [id number] 02/20/16 Assessment/Plan - Problem List Patient Problems: All Active Problems NOT FEELING GOOD WITH NAUSEA (Acute) The administrative codes within the [employer] content you are accessing may have as of 02/06/2016. Please contact your IT Dept/Help Desk and request the latest Regulatory release be installed. IT Dept/Help Desk- Please refer to our FAQ page ([email or web address]) or contact [employer] Customer Support at [email or web address] (Acute ~02/20/16) Nutritional Asmnt/Malnutr-PDOC - Dietary Evaluation Malnutrition Findings (Please click <Entered> for more info): Nutritional Asmnt/Malnutrition Start: 10/22/16 11: 33 Text: Status: Complete Freq: Document 10/22/16 11:33 GSUN (Rec: 10/22/16 11:58 [email or web address] [email or web address]) Nutritional Asmnt/Malnutrition Patient General Information Nutritional Screening High Risk Screening Diagnosis ER: acute cholecystitis, ESRD Pertinent Medical Hx/Surgical Hx ER: HTN, DM, ESRD on dialysis, arthritis Subjective Information 30 year old male. Per ER notes , pt is a kidney transplant failure on dialysis 3 times a week, recieved dialysis 10/21. 10/21 CT abdomen:distended gallbladder, chronic pancreatitis. Pt appeared thin overall, possible mild wasting to shoulders, non- severe. RD asked about UBW/dry weight, if pt has spoken to dietitian at dialysis, explained [facility] renal diet after NPO, to all pt nodded. Pt finally said "my pain is so bad." Unable to provide edu at this time. Current Diet Order/ Nutrition Support NPO Pertinent Medications D5-0.45ns, morphine Pertinent Labs 10/21: BUN 31H, creatinine 6.8H , glucose 208H, A1c 8.7H Nutritional Hx/Data Height 1.52 m Height (Calculated Centimeters) 152.4 Current Weight (lbs) 42.774 kg Weight (Calculated Kilograms) 42.8 Weight (Calculated Grams) 02556.8 [place] Body Weight 106 Weight Status Underweight GI Symptoms Skin Integrity/Comment: Rohit 16. Skin intact. Estimated Nutritional Goals Calories/Kcals/Kg IBW 106lb/48.2kg Kcals Calculated 1446-1687kcal (30-35kcal/kg) Protein Calculated 63-72g (1.3-1.5g/kg) Fluid: ml 1446-1687ml (1ml/kcal) Nutritional Problem 3. Problem Problem Altered nutrition related laboratory values related to Etiology DM aeb Signs/Symptoms: H&P, A1c 8.7H, gglucose 208H on adm 2. Problem Problem Altered GI function related to Etiology unknown etiology aeb Signs/Symptoms: CT: distended gallbladder and chronic pancreatitis, currently NPO 1. Problem Problem Impaired nutrient utilization related to Etiology ESRD aeb Signs/Symptoms: pt is on dialysis, BUN 31H, creatinine 6.8H Intervention/Recommendation Comments 1. When approrpaite to resume diet, recommend [id number] renal diet with Novasource Renal supplement BID in place of beverages. Explained diet to pt, pt nodded. 2. Provide renal [facility] diet education as able. Pt appear to unable to hold conversation at this time due to severe pain. Expected Outcomes/Goals Expected Outcomes/Goals 1. Pt to meet 100% of estimated nutritional needs. 2. Weight trend towards IBW.
--- NOTE | 2016-10-24 14:12 | Diagnostic Imaging Report ---
Magnetic resonance scan of the abdomen including MRCP HISTORY: Pain, cholecystitis Multiple MRI sequences including 3-D high-resolution thin/thick slab, SPGR were utilized. Exam is somewhat limited due to patient motion. The study provide further delineation of the common bile duct exhibits a normal caliber (5.6 mm). No definite intraluminal abnormalities are seen. No intrahepatic biliary dilatation. There is a markedly dilated gallbladder. Abnormal intraluminal fluid level along with multiple intraluminal foci of signal void consistent with cholelithiasis noted. Generalized thickening of the gallbladder wall. Margins of the pancreas cannot be clearly defined. Findings consistent with loculated fluid noted in the right upper quadrant with extension into the andrade hepatis region. The kidneys atrophic bilaterally with cystic changes. IMPRESSION: 1. Limited exam due to rather marked patient motion artifact 2. Markedly dilated thick-walled gallbladder associated with an intraluminal fluid level and evidence of cholelithiasis. 3. Findings consistent with loculated fluid within the right upper quadrant of the abdomen with extension into the andrade hepatis region. The findings correspond to changes noted on the earlier CT scan of October 21, 2016. 4. No definite biliary dilatation 5. Atrophic kidneys
[2016-10-24] MEDS: D5-0.45NS 1,000 ML IV SCH (17:52)
[2016-10-25] MEDS: INSULIN ASPART SLIDING SCALE 100 UNITS/ML UNIT SUBQ SCH ×4 (00:15→19:09)
--- NOTE | 2016-10-25 03:43 | Consultation ---
DATE OF CONSULTATION: 10/24/2016 REASON FOR CONSULTATION: End-stage renal disease, on chronic hemodialysis. HISTORY OF PRESENT ILLNESS: I was kindly asked by Dr. De Jesus to evaluate this 30-year-old male who is [place] who was diagnosed with congenital kidney disease and end-stage renal disease on chronic hemodialysis. He has had a kidney transplant in the past and failed. He has diabetes, he has cognitive impairment, and congenital deafness. He has recurrent skin infection. He came in with abdominal pains ____ with nausea, vomiting. He had leukocytosis, he had cholelithiasis on x-ray; therefore, he is admitted to the hospital. PAST MEDICAL HISTORY: Diabetes, hypertension, seizure disorder, chronic renal failure, end-stage renal disease on chronic hemodialysis, status post failed kidney transplant, anemia, chronic kidney disease. PAST SURGICAL HISTORY: AV fistula placement and kidney failed in kidney transplant. MEDICATIONS: From home, was listed in the chart. ALLERGIES: None. FAMILY HISTORY: Diabetes. SOCIAL HISTORY: He is disabled. He lives at home with his parents. He does not smoke, he does not do drugs. He is very noncompliant. REVIEW OF SYSTEMS: Gradually he has deteriorated over the past several years because of diabetes and end-stage renal disease, he is noncompliant. LABORATORY DATA: Shows white count is 14, H and H is 9.8 and 29.6, platelets is 219, BUN is 52, creatinine 9.9. PHYSICAL EXAMINATION: VITAL SIGNS: Blood pressure is 100/60, heart rate is 103 temperature 99.9. HEENT: Anicteric sclerae. NECK: Supple. No JVD. LUNGS: Clear to auscultation bilaterally. CARDIOVASCULAR: Regular rate and rhythm. ABDOMEN: Soft, tender. EXTREMITIES: No edema. ASSESSMENT AND PLAN: A 30-year-old male who was coming to the hospital with abdominal pain, nausea, vomiting, ____ end-stage renal disease on chronic hemodialysis. We will continue to provide hemodialysis support. We will follow the patient closely. JOB# [id number]
[2016-10-25 05:23] LABS: % BASOPHILS 0.5 % (0.0-2.0); % EOSINOPHILS 4.2 % (0.0-5.0); % LYMPHOCYTES 12.9 % (20.0-50.0); % MONOCYTES 9.8 % (2.0-10.0); % NEUTROPHILS 72.6 % (40.0-80.0); HEMATOCRIT 27.4 % (39.0-49.0); HEMOGLOBIN 9.2 gm/dL (13.2-17.3); MEAN CORPUSCULAR HEMOGLOBIN 28.9 pg (26.0-30.0); MEAN CORPUSCULAR HGB CONC 33.6 pg (28.0-36.0); MEAN PLATELET VOLUME 6.6 fl; NEUTROPHILE ABSOLUTE 8.5 Th/cmm (1.8-8.0); RED BLOOD COUNT 3.19 Mil/cmm (4.30-5.70); RED CELL DISTRIBUTION WIDTH 15.3 % (11.5-20.0); WHITE BLOOD COUNT 11.8 Th/cmm (4.8-10.8)
[2016-10-25 05:30] LABS: PLATELET COUNT 290 Th/cmm (150-400)
[2016-10-25] MEDS ORDERED: Bupivacaine 0.5% W/Ep 10 mL Vial ONE (07:25)
[2016-10-25] MEDS ORDERED: IOHEXOL 300MG/ML 50 ML VIAL ONE (07:43)
[2016-10-25 07:55] LABS: ANION GAP 19.4 (7.0-16.0); POTASSIUM SERUM 3.4 mEq/L (3.5-5.1)
[2016-10-25 07:57] LABS: ALB/GLOB RATIO 0.5 (1.0-1.8); BUN/CREATININE RATIO 4.1; CALCIUM SERUM 9.2 mg/dL (8.6-10.3); CREATININE - SERUM 7.6 mg/dL (0.7-1.3)
[2016-10-25] MEDS ORDERED: Midazolam 1mg/ml 2 ml vial IV ONE (08:35)
[2016-10-25] MEDS ORDERED: 0.9% NS w/40 mEq KCL 1,000 ML IV SCH (08:36)
[2016-10-25] MEDS ORDERED: Meperidine 50 mg/mL 1mL Syr ONE (08:36)
[2016-10-25] MEDS ORDERED: Meperidine 25 mg/mL 1mL Syr IVP PRN (09:45)
[2016-10-25] MEDS ORDERED: Lactated Ringer 1,000 ML IV SCH (09:45)
[2016-10-25] MEDS ORDERED: Neostigmine 10mg/10mL Vial ONE (09:48)
--- NOTE | 2016-10-25 10:01 | General Progress Note ---
Subjective - Review of Systems Service Date: 10/25/16 Events since last encounter: open cholecystectomy done - gangrenous GB, anatomy difficult to telemetry post op Objective - Results Result Diagrams: 10/25/16 05:05 10/25/16 05:05 Recent Labs: Laboratory Last Values WBC 11.8 Th/cmm (4.8-10.8) H 10/25/16 05:05 RBC 3.19 Mil/cmm (4.30-5.70) L 10/25/16 05:05 Hgb 9.2 gm/dL (13.2-17.3) L 10/25/16 05:05 Hct 27.4 % (39.0-49.0) L 10/25/16 05:05 MCV 86.0 fl (80-99) 10/25/16 05:05 MCH 28.9 pg (26.0-30.0) 10/25/16 05:05 MCHC Differential 33.6 pg (28.0-36.0) 10/25/16 05:05 RDW 15.3 % (11.5-20.0) 10/25/16 05:05 Plt Count 290 Th/cmm (150-400) D 10/25/16 05:05 MPV 6.6 fl 10/25/16 05:05 Neutrophils % 72.6 % (40.0-80.0) 10/25/16 05:05 Lymphocytes % 12.9 % (20.0-50.0) L 10/25/16 05:05 Monocytes % 9.8 % (2.0-10.0) 10/25/16 05:05 Eosinophils % 4.2 % (0.0-5.0) 10/25/16 05:05 Basophils % 0.5 % (0.0-2.0) 10/25/16 05:05 PT 12.7 SECONDS (9.5-11.5) H 10/21/16 19:12 INR 1.21 (0.5-1.4) 10/21/16 19:12 PTT (Actin FS) 33.9 SECONDS (26.0-38.0) 10/25/16 05:05 Sodium 139 mEq/L (136-145) 10/25/16 05:05 Potassium 3.4 mEq/L (3.5-5.1) L 10/25/16 05:05 Chloride 98 mEq/L (98-107) 10/25/16 05:05 Carbon Dioxide 25.0 mEq/L (21.0-31.0) 10/25/16 05:05 Anion Gap 19.4 (7.0-16.0) H 10/25/16 05:05 BUN 31 mg/dL (7-25) H 10/25/16 05:05 Creatinine 7.6 mg/dL (0.7-1.3) H* 10/25/16 05:05 Est GFR ( Amer) 10.8 ml/min (>90) 10/25/16 05:05 Est GFR (Non-Af Amer) 8.9 ml/min 10/25/16 05:05 BUN/Creatinine Ratio 4.1 10/25/16 05:05 Glucose 152 mg/dL (70-105) H 10/25/16 05:05 POC Glucose 139 MG/DL (70 - 105) H 10/25/16 05:36 Hemoglobin A1c % 8.7 % (4.0-6.0) H 10/21/16 19:12 Whole Bld Lactic Acid 1.08 mmol/L (0.60-1.99) 10/21/16 19:12 Calcium 9.2 mg/dL (8.6-10.3) 10/25/16 05:05 Total Bilirubin 1.0 mg/dL (0.3-1.0) 10/25/16 05:05 AST 87 U/L (13-39) H 10/25/16 05:05 ALT 113 U/L (7-52) H 10/25/16 05:05 Alkaline Phosphatase 346 U/L (34-104) H 10/25/16 05:05 Troponin I 0.01 ng/mL (0.01-0.05) 10/21/16 19:12 Total Protein 7.4 gm/dL (6.0-8.3) 10/25/16 05:05 Albumin 2.4 gm/dL (4.2-5.5) L 10/25/16 05:05 Globulin 5.0 gm/dL 10/25/16 05:05 Albumin/Globulin Ratio 0.5 (1.0-1.8) L 10/25/16 05:05 Triglycerides 87 mg/dL (<150) 10/21/16 19:12 Cholesterol 128 mg/dL (<200) 10/21/16 19:12 LDL Cholesterol Direct 31 mg/dL (75-193) L 10/21/16 19:12 HDL Cholesterol 69 mg/dL (23-92) 10/21/16 19:12 Lipase 3 U/L (11-82) L 10/23/16 04:57 TSH 1.28 uIU/ml (0.34-5.60) 10/21/16 19:12 RPR NONREACTIVE (NONREACTIVE) 10/21/16 19:12 - Physical Exam Vitals and I&O: Vital Signs Temp 98.9 F 10/25/16 04:00 Pulse 105 10/25/16 04:00 Resp 19 10/25/16 04:00 BP 85/53 10/25/16 04:00 Pulse Ox 97 10/25/16 04:00 Intake & Output 10/24/16 10/25/16 10/25/16 18:59 06:59 18:59 Intake Total 1050 70 Output Total 150 Balance 900 70 Weight (lbs) 44.452 kg 44.452 kg Intake: Intake, IV Amount 1050 50 D5-0.45NS 1,000 ml @ 50 1000 mls/hr IV .Q20H [facility] Rx#: [id number] Piperacillin Sodium/ 50 50 Tazobact 2.25 gm In Sodium Chloride 0.9% 50 ml @ 100 mls/hr IV Q8HR [facility] Rx#:[id number] Oral 0 20 Output: Urine 150 Other: # Voids 1 # Bowel Movements 0 1 Active Medications: Current Medications Acetaminophen (Tylenol Extra Strength) 500 mg PO Q6H PRN PRN Reason: FEVER Stop: 12/22/16 16:55 Hydromorphone HCl (Dilaudid) 1 mg IVP Q4HR PRN PRN Reason: abd pain Stop: 12/22/16 16:45 Last Admin: 10/24/16 22:52 Dose: 1 mg Piperacillin Sod/Tazobactam (Sod 2.25 gm/ Sodium Chloride) 50 mls @ 100 mls/hr IV Q8HR RADHA Stop: 12/20/16 22:59 Last Admin: 10/25/16 05:29 Dose: 100 mls/hr Potassium Chloride/Sodium Chloride (0.9% Ns W/40 Meq Kcl) 1,000 mls @ 100 mls/ hr IV .Q10H [facility] Stop: 12/24/16 08:35 Lactated Ringer's (Lactated Ringer) 1,000 mls @ 0 mls/hr IV .Q0M RADHA PRN Reason: TKO Stop: 10/26/16 09:44 Insulin Aspart (Novolog Insulin Sliding Scale) 0 units SUBQ Q6HR [facility] PRN Reason: Protocol Stop: 12/21/16 17:59 Last Admin: 10/25/16 05:53 Dose: Not Given Levetiracetam (Keppra) 500 mg PO BID RADHA Stop: 12/21/16 16:59 Last Admin: 10/24/16 20:34 Dose: 500 mg Meperidine HCl (Demerol) 12.5 mg IVP UD PRN PRN Reason: POST-OP PAIN Stop: 10/26/16 09:44 Ondansetron HCl (Zofran) 4 mg IV X1 PRN PRN Reason: Nausea / Vomiting Stop: 10/26/16 09:44 - Procedures Procedures: Procedures Procedure Code Date EGD BIOPSY SINGLE/MULTIPLE 01459 02/20/16 EXCISION OF DUODENUM, ENDO, DIAGN [id number] 02/20/16 EXCISION OF STOMACH, PYLORUS, ENDO, DIAGN [id number] 02/20/16 PERFORMANCE OF URINARY FILTRATION, SINGLE [id number] 02/20/16 Assessment/Plan - Problem List Patient Problems: All Active Problems NOT FEELING GOOD WITH NAUSEA (Acute) The administrative codes within the [employer] content you are accessing may have as of 02/06/2016. Please contact your IT Dept/Help Desk and request the latest Regulatory release be installed. IT Dept/Help Desk- Please refer to our FAQ page ([email or web address]) or contact O Customer Support at [email or web address] (Acute ~02/20/16) Nutritional Asmnt/Malnutr-PDOC - Dietary Evaluation Malnutrition Findings (Please click <Entered> for more info): Nutritional Asmnt/Malnutrition Start: 10/22/16 11: 33 Text: Status: Complete Freq: Document 10/22/16 11:33 GSUN (Rec: 10/22/16 11:58 [email or web address] [email or web address]) Nutritional Asmnt/Malnutrition Patient General Information Nutritional Screening High Risk Screening Diagnosis ER: acute cholecystitis, ESRD Pertinent Medical Hx/Surgical Hx ER: HTN, DM, ESRD on dialysis, arthritis Subjective Information 30 year old male. Per ER notes , pt is a kidney transplant failure on dialysis 3 times a week, recieved dialysis 10/21. 10/21 CT abdomen:distended gallbladder, chronic pancreatitis. Pt appeared thin overall, possible mild wasting to shoulders, non- severe. RD asked about UBW/dry weight, if pt has spoken to dietitian at dialysis, explained [facility] renal diet after NPO, to all pt nodded. Pt finally said "my pain is so bad." Unable to provide edu at this time. Current Diet Order/ Nutrition Support NPO Pertinent Medications D5-0.45ns, morphine Pertinent Labs 10/21: BUN 31H, creatinine 6.8H , glucose 208H, A1c 8.7H Nutritional Hx/Data Height 1.52 m Height (Calculated Centimeters) 152.4 Current Weight (lbs) 42.774 kg Weight (Calculated Kilograms) 42.8 Weight (Calculated Grams) 37202.8 Edwards Body Weight 106 Weight Status Underweight GI Symptoms Skin Integrity/Comment: Rohit 16. Skin intact. Estimated Nutritional Goals Calories/Kcals/Kg IBW 106lb/48.2kg Kcals Calculated 1446-1687kcal (30-35kcal/kg) Protein Calculated 63-72g (1.3-1.5g/kg) Fluid: ml 1446-1687ml (1ml/kcal) Nutritional Problem 3. Problem Problem Altered nutrition related laboratory values related to Etiology DM aeb Signs/Symptoms: H&P, A1c 8.7H, gglucose 208H on adm 2. Problem Problem Altered GI function related to Etiology unknown etiology aeb Signs/Symptoms: CT: distended gallbladder and chronic pancreatitis, currently NPO 1. Problem Problem Impaired nutrient utilization related to Etiology ESRD aeb Signs/Symptoms: pt is on dialysis, BUN 31H, creatinine 6.8H Intervention/Recommendation Comments 1. When approrpaite to resume diet, recommend [id number] renal diet with Novasource Renal supplement BID in place of beverages. Explained diet to pt, pt nodded. 2. Provide renal CCHO diet education as able. Pt appear to unable to hold conversation at this time due to severe pain. Expected Outcomes/Goals Expected Outcomes/Goals 1. Pt to meet 100% of estimated nutritional needs. 2. Weight trend towards IBW.
--- NOTE | 2016-10-25 10:54 | Operative Report ---
DATE OF SURGERY: 10/25/2016 PREOPERATIVE DIAGNOSIS: Acute cholecystitis. POSTOPERATIVE DIAGNOSIS: Gangrenous cholecystitis. SURGEON: Orville No M.D. REGULATORY INTERNSHIP: Candice Rios Jr. M> Kelsi. ANESTHESIA: General. ANESTHESIOLOGIST: Sammie Roman M.D. INDICATIONS FOR SURGERY: The patient with persistent pain in the right upper quadrant, leukocytosis and elevated liver function test. HIDA scan showed nonvisualization of the gallbladder. Attempt to determine the common duct status with MRCP was poor result because of patient motion. Past surgery included ____ kidney transplant at age 2 and multiple gastrostomy and feeding tube placement. Scar to the abdomen multiple. OPERATIVE FINDINGS: Gangrenous gallbladder markedly dilated with multiple gallstones. Extremely difficult because of the adhesions to determine anatomy at the triangle of Calot. The gallbladder was amputated at the infundibulum. ESTIMATED BLOOD LOSS: 100 mL. DESCRIPTION OF PROCEDURE: The patient was given general anesthesia. The abdomen was prepped with ChloraPrep and draped in appropriate manner. Upon ____ inspection of the abdominal wall, there are multiple scars at the midline and on the left side and the right lower quadrant from previous surgeries. It was decided to do open cholecystectomy with Nadeem incision. Incision was made to the muscle layers and transected. Bleeders were coagulated. There were dense adhesions that needed to be lysed from the liver to the anterior abdominal wall and the gallbladder was encased in omentum and the gallbladder wall was gangrenous. It was decided to do a retrograde removal peeling away the seromuscular layer from the liver bed. In this process, bleeders encountered was controlled with cautery and clip application. The area of the triangle of Calot; however, was impossible to see from the previous adhesions and it was decided to amputate at the infundibulum. There were multiple stones that had to be extracted as the gallbladder was entered. It is possible that some stones may be retained in infundibulum. Following satisfactory hemostasis, the infundibulum was sutured with 2-0 silk. Additional Surgicel was used to control oozing, which was satisfactory at the end of the operation. A Clint-Jeffries drain was left in the incision at the liver bed. The incision was closed with running suture of #1 PDS posterior onto the rectus sheath. The skin was closed with subcuticular suture of 4-0 Vicryl. The patient will be sent to the telemetry for postoperative care. [facility]# [id number] MTDD
[2016-10-25] MEDS: HYDROmorphone 1 mg/mL 1mL Syr IVP PRN ×2 (16:56→21:29)
[2016-10-25] MEDS: D5-0.45NS 1,000 ML IV SCH (22:24)
[2016-10-25] MEDS: Acetaminophen 500 MG TAB PO PRN (23:32)
[2016-10-26] MEDS: INSULIN ASPART SLIDING SCALE 100 UNITS/ML UNIT SUBQ SCH ×3 (02:43→12:18)
[2016-10-26] MEDS: HYDROmorphone 1 mg/mL 1mL Syr IVP PRN ×4 (03:54→22:17)
[2016-10-26 07:30] LABS: ALB/GLOB RATIO 0.8 (1.0-1.8); ANION GAP 19.2 (7.0-16.0); BUN/CREATININE RATIO 4.3; CALCIUM SERUM 9.7 mg/dL (8.6-10.3); CARBON DIOXIDE 22.7 mEq/L (21.0-31.0); POTASSIUM SERUM 3.9 mEq/L (3.5-5.1)
[2016-10-26 07:53] LABS: CREATININE - SERUM 9.9 mg/dL (0.7-1.3)
[2016-10-26 08:16] LABS: MEAN CELL VOLUME 86.1 fl (80-99); MEAN CORPUSCULAR HEMOGLOBIN 28.8 pg (26.0-30.0); MEAN CORPUSCULAR HGB CONC 33.5 pg (28.0-36.0); MEAN PLATELET VOLUME 6.8 fl; PLATELET COUNT 277 Th/cmm (150-400); RED BLOOD COUNT 2.61 Mil/cmm (4.30-5.70); RED CELL DISTRIBUTION WIDTH 15.9 % (11.5-20.0)
[2016-10-26 08:20] LABS: WHITE BLOOD COUNT 15.6 Th/cmm (4.8-10.8)
[2016-10-26 08:21] LABS: HEMATOCRIT 22.5 % (39.0-49.0); HEMOGLOBIN 7.5 gm/dL (13.2-17.3)
[2016-10-26 08:31] LABS: BAND NEUTROPHILE 8 % (0-10); NEUTROPHILS 82 % (40-80); PLATELET ESTIMATE ADEQUATE (NORMAL); PLATELET MORPHOLOGY NORMAL (NORMAL); TOTAL CELLS COUNTED 100
--- NOTE | 2016-10-26 15:56 | General Progress Note ---
Subjective - Review of Systems Service Date: 10/26/16 Events since last encounter: labs ok tolerating diet claims less pain from preop recheck labs in AM Objective - Results Result Diagrams: 10/26/16 08:10 10/26/16 06:00 Recent Labs: Laboratory Last Values WBC 15.6 Th/cmm (4.8-10.8) H D 10/26/16 08:10 RBC 2.61 Mil/cmm (4.30-5.70) L 10/26/16 08:10 Hgb 7.5 gm/dL (13.2-17.3) L* D 10/26/16 08:10 Hct 22.5 % (39.0-49.0) L* D 10/26/16 08:10 MCV 86.1 fl (80-99) 10/26/16 08:10 MCH 28.8 pg (26.0-30.0) 10/26/16 08:10 MCHC Differential 33.5 pg (28.0-36.0) 10/26/16 08:10 RDW 15.9 % (11.5-20.0) 10/26/16 08:10 Plt Count 277 Th/cmm (150-400) 10/26/16 08:10 MPV 6.8 fl 10/26/16 08:10 Neutrophils % 72.6 % (40.0-80.0) 10/25/16 05:05 Band Neutrophils % 8 % (0-10) 10/26/16 08:10 Lymphocytes % 12.9 % (20.0-50.0) L 10/25/16 05:05 Monocytes % 9.8 % (2.0-10.0) 10/25/16 05:05 Eosinophils % 4.2 % (0.0-5.0) 10/25/16 05:05 Basophils % 0.5 % (0.0-2.0) 10/25/16 05:05 Neutrophils (Manual) 82 % (40-80) H 10/26/16 08:10 Lymphocytes 6 % (20-50) L 10/26/16 08:10 Monocytes 4 % (2-10) 10/26/16 08:10 Platelet Estimate ADEQUATE (NORMAL) 10/26/16 08:10 Platelet Morphology NORMAL (NORMAL) 10/26/16 08:10 RBC Morph Micro Appear NORMAL (NORMAL) 10/26/16 08:10 PT 12.7 SECONDS (9.5-11.5) H 10/21/16 19:12 INR 1.21 (0.5-1.4) 10/21/16 19:12 PTT (Actin FS) 33.9 SECONDS (26.0-38.0) 10/25/16 05:05 Sodium 136 mEq/L (136-145) 10/26/16 06:00 Potassium 3.9 mEq/L (3.5-5.1) 10/26/16 06:00 Chloride 98 mEq/L (98-107) 10/26/16 06:00 Carbon Dioxide 22.7 mEq/L (21.0-31.0) 10/26/16 06:00 Anion Gap 19.2 (7.0-16.0) H 10/26/16 06:00 BUN 43 mg/dL (7-25) H 10/26/16 06:00 Creatinine 9.9 mg/dL (0.7-1.3) H* 10/26/16 06:00 Est GFR ( Amer) 8.0 ml/min (>90) 10/26/16 06:00 Est GFR (Non-Af Amer) 6.6 ml/min 10/26/16 06:00 BUN/Creatinine Ratio 4.3 10/26/16 06:00 Glucose 227 mg/dL (70-105) H 10/26/16 06:00 POC Glucose 163 MG/DL (70 - 105) H 10/26/16 11:57 Hemoglobin A1c % 8.7 % (4.0-6.0) H 10/21/16 19:12 Whole Bld Lactic Acid 1.08 mmol/L (0.60-1.99) 10/21/16 19:12 Calcium 9.7 mg/dL (8.6-10.3) 10/26/16 06:00 Total Bilirubin 1.0 mg/dL (0.3-1.0) 10/26/16 06:00 AST 72 U/L (13-39) H 10/26/16 06:00 ALT 81 U/L (7-52) H 10/26/16 06:00 Alkaline Phosphatase 247 U/L (34-104) H 10/26/16 06:00 Troponin I 0.01 ng/mL (0.01-0.05) 10/21/16 19:12 Total Protein 6.7 gm/dL (6.0-8.3) 10/26/16 06:00 Albumin 3.0 gm/dL (4.2-5.5) L 10/26/16 06:00 Globulin 3.7 gm/dL 10/26/16 06:00 Albumin/Globulin Ratio 0.8 (1.0-1.8) L 10/26/16 06:00 Triglycerides 87 mg/dL (<150) 10/21/16 19:12 Cholesterol 128 mg/dL (<200) 10/21/16 19:12 LDL Cholesterol Direct 31 mg/dL (75-193) L 10/21/16 19:12 HDL Cholesterol 69 mg/dL (23-92) 10/21/16 19:12 Lipase 3 U/L (11-82) L 10/23/16 04:57 TSH 1.28 uIU/ml (0.34-5.60) 10/21/16 19:12 RPR NONREACTIVE (NONREACTIVE) 10/21/16 19:12 Blood Type AB POSITIVE 10/26/16 08:10 Antibody Screen NEGATIVE 10/26/16 08:10 Crossmatch See Detail 10/26/16 08:10 - Physical Exam Vitals and I&O: Vital Signs Temp 96.8 F 10/26/16 08:00 Pulse 101 10/26/16 08:00 Resp 18 10/26/16 08:00 BP 95/62 10/26/16 08:00 Pulse Ox 98 10/26/16 08:00 Intake & Output 10/25/16 10/26/16 10/26/16 18:59 06:59 18:59 Intake Total 200 120 Output Total 20 Balance 180 120 Weight (lbs) 45.359 kg 44.543 kg Intake: Intake, IV Amount 50 100 Piperacillin Sodium/ 50 100 Tazobact 2.25 gm In Sodium Chloride 0.9% 50 ml @ 100 mls/hr IV Q8HR [facility] Rx#:[id number] Oral 150 20 Output: Drainage 20 Upper Abdomen 20 Other: # Voids 0 # Bowel Movements 2 0 Stool Characteristics Soft Soft Soft Formed Formed Formed Active Medications: Current Medications Acetaminophen (Tylenol Extra Strength) 500 mg PO Q6H PRN PRN Reason: FEVER Stop: 12/22/16 16:55 Last Admin: 10/25/16 23:32 Dose: 500 mg Hydromorphone HCl (Dilaudid) 1 mg IVP Q4HR PRN PRN Reason: abd pain Stop: 12/22/16 16:45 Last Admin: 10/26/16 09:18 Dose: 1 mg Piperacillin Sod/Tazobactam (Sod 2.25 gm/ Sodium Chloride) 50 mls @ 100 mls/hr IV Q8HR RADHA Stop: 12/20/16 22:59 Last Admin: 10/26/16 12:18 Dose: 100 mls/hr Dextrose/Sodium Chloride (D5-0.45ns) 1,000 mls @ 50 mls/hr IV .Q20H RADHA Stop: 12/24/16 22:18 Last Admin: 10/25/16 22:24 Dose: 50 mls/hr Insulin Aspart (Novolog Insulin Sliding Scale) 0 units SUBQ Q6HR RADHA PRN Reason: Protocol Stop: 12/21/16 17:59 Last Admin: 10/26/16 12:18 Dose: 2 units Levetiracetam (Keppra) 500 mg PO BID RADHA Stop: 12/21/16 16:59 Last Admin: 10/26/16 08:30 Dose: 500 mg Miscellaneous (Clinical Monitoring) 1 ea MC DAILY PRN PRN Reason: RENAL Stop: 12/25/16 08:59 - Procedures Procedures: Procedures Procedure Code Date ABDOMEN SURGERY PROCEDURE 32710 10/21/16 EGD BIOPSY SINGLE/MULTIPLE 23446 02/20/16 EXCISION OF DUODENUM, ENDO, DIAGN [id number] 02/20/16 EXCISION OF STOMACH, PYLORUS, ENDO, DIAGN [id number] 02/20/16 PERFORMANCE OF URINARY FILTRATION, SINGLE [id number] 02/20/16 RELEASE GREATER OMENTUM, OPEN APPROACH [id number] 10/21/16 REMOVAL OF GALLBLADDER 17470 10/21/16 RESECTION OF GALLBLADDER, OPEN APPROACH [id number] 10/21/16 Assessment/Plan - Problem List Patient Problems: All Active Problems NOT FEELING GOOD WITH NAUSEA (Acute) The administrative codes within the [employer] content you are accessing may have as of 02/06/2016. Please contact your IT Dept/Help Desk and request the latest Regulatory release be installed. IT Dept/Help Desk- Please refer to our FAQ page ([email or web address]) or contact [employer] Customer Support at [email or web address] (Acute ~02/20/16) Nutritional Asmnt/Malnutr-PDOC - Dietary Evaluation Malnutrition Findings (Please click <Entered> for more info): Nutritional Asmnt/Malnutrition Start: 10/22/16 11: 33 Text: Status: Complete Freq: Document 10/22/16 11:33 GSUN (Rec: 10/22/16 11:58 GSUN [email or web address]) Nutritional Asmnt/Malnutrition Patient General Information Nutritional Screening High Risk Screening Diagnosis ER: acute cholecystitis, ESRD Pertinent Medical Hx/Surgical Hx ER: HTN, DM, ESRD on dialysis, arthritis Subjective Information 30 year old male. Per ER notes , pt is a kidney transplant failure on dialysis 3 times a week, recieved dialysis 10/21. 10/21 CT abdomen:distended gallbladder, chronic pancreatitis. Pt appeared thin overall, possible mild wasting to shoulders, non- severe. RD asked about UBW/dry weight, if pt has spoken to dietitian at dialysis, explained [facility] renal diet after NPO, to all pt nodded. Pt finally said "my pain is so bad." Unable to provide edu at this time. Current Diet Order/ Nutrition Support NPO Pertinent Medications D5-0.45ns, morphine Pertinent Labs 10/21: BUN 31H, creatinine 6.8H , glucose 208H, A1c 8.7H Nutritional Hx/Data Height 1.52 m Height (Calculated Centimeters) 152.4 Current Weight (lbs) 42.774 kg Weight (Calculated Kilograms) 42.8 Weight (Calculated Grams) 02395.8 Jakin Body Weight 106 Weight Status Underweight GI Symptoms Skin Integrity/Comment: Rohit 16. Skin intact. Estimated Nutritional Goals Calories/Kcals/Kg IBW 106lb/48.2kg Kcals Calculated 1446-1687kcal (30-35kcal/kg) Protein Calculated 63-72g (1.3-1.5g/kg) Fluid: ml 1446-1687ml (1ml/kcal) Nutritional Problem 3. Problem Problem Altered nutrition related laboratory values related to Etiology DM aeb Signs/Symptoms: H&P, A1c 8.7H, gglucose 208H on adm 2. Problem Problem Altered GI function related to Etiology unknown etiology aeb Signs/Symptoms: CT: distended gallbladder and chronic pancreatitis, currently NPO 1. Problem Problem Impaired nutrient utilization related to Etiology ESRD aeb Signs/Symptoms: pt is on dialysis, BUN 31H, creatinine 6.8H Intervention/Recommendation Comments 1. When approrpaite to resume diet, recommend [id number] renal diet with Novasource Renal supplement BID in place of beverages. Explained diet to pt, pt nodded. 2. Provide renal [facility] diet education as able. Pt appear to unable to hold conversation at this time due to severe pain. Expected Outcomes/Goals Expected Outcomes/Goals 1. Pt to meet 100% of estimated nutritional needs. 2. Weight trend towards IBW.
[2016-10-26] MEDS: D5-0.45NS 1,000 ML IV SCH (19:54)
[2016-10-27] MEDS: INSULIN ASPART SLIDING SCALE 100 UNITS/ML UNIT SUBQ SCH ×4 (00:05→18:01)
[2016-10-27] MEDS: HYDROmorphone 1 mg/mL 1mL Syr IVP PRN ×4 (02:57→16:08)
[2016-10-27 07:16] LABS: % BASOPHILS 0.8 % (0.0-2.0); % EOSINOPHILS 2.9 % (0.0-5.0); % LYMPHOCYTES 10.4 % (20.0-50.0); % MONOCYTES 8.9 % (2.0-10.0); MEAN CELL VOLUME 85.9 fl (80-99); MEAN CORPUSCULAR HGB CONC 33.7 pg (28.0-36.0); MEAN PLATELET VOLUME 6.7 fl; PLATELET COUNT 271 Th/cmm (150-400); RED BLOOD COUNT 3.55 Mil/cmm (4.30-5.70); RED CELL DISTRIBUTION WIDTH 14.7 % (11.5-20.0); WHITE BLOOD COUNT 12.9 Th/cmm (4.8-10.8)
[2016-10-27 07:49] LABS: HEMATOCRIT 30.5 % (39.0-49.0); HEMOGLOBIN 10.3 gm/dL (13.2-17.3)
[2016-10-27 07:57] LABS: ALB/GLOB RATIO 0.8 (1.0-1.8); ANION GAP 16.7 (7.0-16.0); BUN/CREATININE RATIO 3.2; CALCIUM SERUM 9.5 mg/dL (8.6-10.3); CARBON DIOXIDE 21.9 mEq/L (21.0-31.0); POTASSIUM SERUM 3.6 mEq/L (3.5-5.1)
[2016-10-27 08:31] LABS: CREATININE - SERUM 6.5 mg/dL (0.7-1.3)
--- NOTE | 2016-10-27 09:41 | Pathology Report ---
[id number] Collection date: 10/25/2016 Surgeon: Dr. Isabel No Specimen Description: Gallbladder Gross Description: Received in formalin is an 8 x 3.5 x 3.0 cm gallbladder with a dark dalton dusky discoloration seen on the outer surface of the specimen. Opening the gallbladder shows diffuse mucosal ulceration with a wall thickness ranging from 0.1 to 0.4 cm. Sectioning shows soft, partially necrotic tissue with multiple yellow gallstones identified ranging from 0.3 to 0.8 cm in greatest dimension. Elevator Service Technician sections are submitted in one cassette. Gross Pathologic Diagnosis: Cholelithiasis, gallbladder. Microscopic Description: The histologic sections show gallbladder wall with diffuse mucosal ulceration and necrosis present. There are scattered collections of neutrophils within a necrotic background. Diagnosis: Acute gangrenous cholecystitis, gallbladder. [facility]# [id number] [facility]
--- NOTE | 2016-10-27 10:56 | General Progress Note ---
Subjective - Review of Systems Service Date: 10/27/16 Events since last encounter: labs ok eating well ELIZABETH out september DC Objective - Results Result Diagrams: 10/27/16 06:58 10/27/16 06:58 Recent Labs: Laboratory Last Values WBC 12.9 Th/cmm (4.8-10.8) H 10/27/16 06:58 RBC 3.55 Mil/cmm (4.30-5.70) L 10/27/16 06:58 Hgb 10.3 gm/dL (13.2-17.3) L D 10/27/16 06:58 Hct 30.5 % (39.0-49.0) L D 10/27/16 06:58 MCV 85.9 fl (80-99) 10/27/16 06:58 MCH 29.0 pg (26.0-30.0) 10/27/16 06:58 MCHC Differential 33.7 pg (28.0-36.0) 10/27/16 06:58 RDW 14.7 % (11.5-20.0) 10/27/16 06:58 Plt Count 271 Th/cmm (150-400) 10/27/16 06:58 MPV 6.7 fl 10/27/16 06:58 Neutrophils % 77.0 % (40.0-80.0) 10/27/16 06:58 Band Neutrophils % 8 % (0-10) 10/26/16 08:10 Lymphocytes % 10.4 % (20.0-50.0) L 10/27/16 06:58 Monocytes % 8.9 % (2.0-10.0) 10/27/16 06:58 Eosinophils % 2.9 % (0.0-5.0) 10/27/16 06:58 Basophils % 0.8 % (0.0-2.0) 10/27/16 06:58 Neutrophils (Manual) 82 % (40-80) H 10/26/16 08:10 Lymphocytes 6 % (20-50) L 10/26/16 08:10 Monocytes 4 % (2-10) 10/26/16 08:10 Platelet Estimate ADEQUATE (NORMAL) 10/26/16 08:10 Platelet Morphology NORMAL (NORMAL) 10/26/16 08:10 RBC Morph Micro Appear NORMAL (NORMAL) 10/26/16 08:10 PT 12.7 SECONDS (9.5-11.5) H 10/21/16 19:12 INR 1.21 (0.5-1.4) 10/21/16 19:12 PTT (Actin FS) 33.9 SECONDS (26.0-38.0) 10/25/16 05:05 Sodium 138 mEq/L (136-145) 10/27/16 06:58 Potassium 3.6 mEq/L (3.5-5.1) 10/27/16 06:58 Chloride 103 mEq/L (98-107) 10/27/16 06:58 Carbon Dioxide 21.9 mEq/L (21.0-31.0) 10/27/16 06:58 Anion Gap 16.7 (7.0-16.0) H 10/27/16 06:58 BUN 21 mg/dL (7-25) 10/27/16 06:58 Creatinine 6.5 mg/dL (0.7-1.3) H* 10/27/16 06:58 Est GFR ( Amer) 12.9 ml/min (>90) 10/27/16 06:58 Est GFR (Non-Af Amer) 10.7 ml/min 10/27/16 06:58 BUN/Creatinine Ratio 3.2 10/27/16 06:58 Glucose 156 mg/dL (70-105) H 10/27/16 06:58 POC Glucose 160 MG/DL (70 - 105) H 10/27/16 05:32 Hemoglobin A1c % 8.7 % (4.0-6.0) H 10/21/16 19:12 Whole Bld Lactic Acid 1.08 mmol/L (0.60-1.99) 10/21/16 19:12 Calcium 9.5 mg/dL (8.6-10.3) 10/27/16 06:58 Total Bilirubin 1.0 mg/dL (0.3-1.0) 10/27/16 06:58 AST 38 U/L (13-39) 10/27/16 06:58 ALT 60 U/L (7-52) H 10/27/16 06:58 Alkaline Phosphatase 220 U/L (34-104) H 10/27/16 06:58 Troponin I 0.01 ng/mL (0.01-0.05) 10/21/16 19:12 Total Protein 6.8 gm/dL (6.0-8.3) 10/27/16 06:58 Albumin 3.1 gm/dL (4.2-5.5) L 10/27/16 06:58 Globulin 3.7 gm/dL 10/27/16 06:58 Albumin/Globulin Ratio 0.8 (1.0-1.8) L 10/27/16 06:58 Triglycerides 87 mg/dL (<150) 10/21/16 19:12 Cholesterol 128 mg/dL (<200) 10/21/16 19:12 LDL Cholesterol Direct 31 mg/dL (75-193) L 10/21/16 19:12 HDL Cholesterol 69 mg/dL (23-92) 10/21/16 19:12 Lipase 3 U/L (11-82) L 10/23/16 04:57 TSH 1.28 uIU/ml (0.34-5.60) 10/21/16 19:12 RPR NONREACTIVE (NONREACTIVE) 10/21/16 19:12 Blood Type AB POSITIVE 10/26/16 08:10 Antibody Screen NEGATIVE 10/26/16 08:10 Crossmatch See Detail 10/26/16 08:10 - Physical Exam Vitals and I&O: Vital Signs Temp 97.8 F 10/27/16 10:01 Pulse 96 10/27/16 10:01 Resp 17 10/27/16 10:01 BP 110/75 10/27/16 10:01 Pulse Ox 97 10/27/16 10:01 Intake & Output 10/26/16 10/27/16 10/27/16 18:59 06:59 18:59 Intake Total 1050 200 Output Total 100 Balance 1050 100 Weight (lbs) 44.254 kg Intake: Intake, IV Amount 1050 100 D5-0.45NS 1,000 ml @ 50 1000 mls/hr IV .Q20H RADHA Rx#: [id number] Piperacillin Sodium/ 50 100 Tazobact 2.25 gm In Sodium Chloride 0.9% 50 ml @ 100 mls/hr IV Q8HR RADHA Rx#:[id number] Oral 100 Output: Drainage 100 Upper Abdomen 100 Urine 0 Other: # Bowel Movements 0 Stool Characteristics Formed Active Medications: Current Medications Acetaminophen (Tylenol Extra Strength) 500 mg PO Q6H PRN PRN Reason: FEVER Stop: 12/22/16 16:55 Last Admin: 10/25/16 23:32 Dose: 500 mg Hydromorphone HCl (Dilaudid) 1 mg IVP Q4HR PRN PRN Reason: abd pain Stop: 12/22/16 16:45 Last Admin: 10/27/16 08:22 Dose: 1 mg Piperacillin Sod/Tazobactam (Sod 2.25 gm/ Sodium Chloride) 50 mls @ 100 mls/hr IV Q8HR RADHA Stop: 12/20/16 22:59 Last Infusion: 10/27/16 06:17 Dose: Infused Dextrose/Sodium Chloride (D5-0.45ns) 1,000 mls @ 50 mls/hr IV .Q20H RADHA Stop: 12/24/16 22:18 Last Admin: 10/26/16 19:54 Dose: 50 mls/hr Insulin Aspart (Novolog Insulin Sliding Scale) 0 units SUBQ Q6HR RADHA PRN Reason: Protocol Stop: 12/21/16 17:59 Last Admin: 10/27/16 05:43 Dose: 2 units Levetiracetam (Keppra) 500 mg PO BID RADHA Stop: 12/21/16 16:59 Last Admin: 10/27/16 08:30 Dose: 500 mg Miscellaneous (Clinical Monitoring) 1 ea MC DAILY PRN PRN Reason: RENAL Stop: 12/25/16 08:59 - Procedures Procedures: Procedures Procedure Code Date ABDOMEN SURGERY PROCEDURE 37316 10/21/16 EGD BIOPSY SINGLE/MULTIPLE 25380 02/20/16 EXCISION OF DUODENUM, ENDO, DIAGN [id number] 02/20/16 EXCISION OF STOMACH, PYLORUS, ENDO, DIAGN [id number] 02/20/16 PERFORMANCE OF URINARY FILTRATION, SINGLE [id number] 02/20/16 RELEASE GREATER OMENTUM, OPEN APPROACH [id number] 10/21/16 REMOVAL OF GALLBLADDER 59209 10/21/16 RESECTION OF GALLBLADDER, OPEN APPROACH [id number] 10/21/16 Assessment/Plan - Problem List Patient Problems: All Active Problems NOT FEELING GOOD WITH NAUSEA (Acute) The administrative codes within the IMO content you are accessing may have as of 02/06/2016. Please contact your IT Dept/Help Desk and request the latest Regulatory release be installed. IT Dept/Help Desk- Please refer to our FAQ page ([email or web address]) or contact [employer] Customer Support at [email or web address] (Acute ~02/20/16) Nutritional Asmnt/Malnutr-PDOC - Dietary Evaluation Malnutrition Findings (Please click <Entered> for more info): Nutritional Asmnt/Malnutrition Start: 10/22/16 11: 33 Text: Status: Complete Freq: Document 10/22/16 11:33 GSUN (Rec: 10/22/16 11:58 [email or web address] [email or web address]) Nutritional Asmnt/Malnutrition Patient General Information Nutritional Screening High Risk Screening Diagnosis ER: acute cholecystitis, ESRD Pertinent Medical Hx/Surgical Hx ER: HTN, DM, ESRD on dialysis, arthritis Subjective Information 30 year old male. Per ER notes , pt is a kidney transplant failure on dialysis 3 times a week, recieved dialysis 10/21. 10/21 CT abdomen:distended gallbladder, chronic pancreatitis. Pt appeared thin overall, possible mild wasting to shoulders, non- severe. RD asked about UBW/dry weight, if pt has spoken to dietitian at dialysis, explained [facility] renal diet after NPO, to all pt nodded. Pt finally said "my pain is so bad." Unable to provide edu at this time. Current Diet Order/ Nutrition Support NPO Pertinent Medications D5-0.45ns, morphine Pertinent Labs 10/21: BUN 31H, creatinine 6.8H , glucose 208H, A1c 8.7H Nutritional Hx/Data Height 1.52 m Height (Calculated Centimeters) 152.4 Current Weight (lbs) 42.774 kg Weight (Calculated Kilograms) 42.8 Weight (Calculated Grams) 11263.8 [place] Body Weight 106 Weight Status Underweight GI Symptoms Skin Integrity/Comment: Rohit 16. Skin intact. Estimated Nutritional Goals Calories/Kcals/Kg IBW 106lb/48.2kg Kcals Calculated 1446-1687kcal (30-35kcal/kg) Protein Calculated 63-72g (1.3-1.5g/kg) Fluid: ml 1446-1687ml (1ml/kcal) Nutritional Problem 3. Problem Problem Altered nutrition related laboratory values related to Etiology DM aeb Signs/Symptoms: H&P, A1c 8.7H, gglucose 208H on adm 2. Problem Problem Altered GI function related to Etiology unknown etiology aeb Signs/Symptoms: CT: distended gallbladder and chronic pancreatitis, currently NPO 1. Problem Problem Impaired nutrient utilization related to Etiology ESRD aeb Signs/Symptoms: pt is on dialysis, BUN 31H, creatinine 6.8H Intervention/Recommendation Comments 1. When approrpaite to resume diet, recommend [id number] renal diet with Novasource Renal supplement BID in place of beverages. Explained diet to pt, pt nodded. 2. Provide renal [facility] diet education as able. Pt appear to unable to hold conversation at this time due to severe pain. Expected Outcomes/Goals Expected Outcomes/Goals 1. Pt to meet 100% of estimated nutritional needs. 2. Weight trend towards IBW.
--- NOTE | 2016-10-27 10:57 | General Progress Note ---
Subjective - Review of Systems Service Date: 10/27/16 Events since last encounter: may shower low fat diet for 30 days Advil 500 mg for pain sutures are absorbable, do not need removal for office visit as needed, not required Objective - Results Result Diagrams: 10/27/16 06:58 10/27/16 06:58 Recent Labs: Laboratory Last Values WBC 12.9 Th/cmm (4.8-10.8) H 10/27/16 06:58 RBC 3.55 Mil/cmm (4.30-5.70) L 10/27/16 06:58 Hgb 10.3 gm/dL (13.2-17.3) L D 10/27/16 06:58 Hct 30.5 % (39.0-49.0) L D 10/27/16 06:58 MCV 85.9 fl (80-99) 10/27/16 06:58 MCH 29.0 pg (26.0-30.0) 10/27/16 06:58 MCHC Differential 33.7 pg (28.0-36.0) 10/27/16 06:58 RDW 14.7 % (11.5-20.0) 10/27/16 06:58 Plt Count 271 Th/cmm (150-400) 10/27/16 06:58 MPV 6.7 fl 10/27/16 06:58 Neutrophils % 77.0 % (40.0-80.0) 10/27/16 06:58 Band Neutrophils % 8 % (0-10) 10/26/16 08:10 Lymphocytes % 10.4 % (20.0-50.0) L 10/27/16 06:58 Monocytes % 8.9 % (2.0-10.0) 10/27/16 06:58 Eosinophils % 2.9 % (0.0-5.0) 10/27/16 06:58 Basophils % 0.8 % (0.0-2.0) 10/27/16 06:58 Neutrophils (Manual) 82 % (40-80) H 10/26/16 08:10 Lymphocytes 6 % (20-50) L 10/26/16 08:10 Monocytes 4 % (2-10) 10/26/16 08:10 Platelet Estimate ADEQUATE (NORMAL) 10/26/16 08:10 Platelet Morphology NORMAL (NORMAL) 10/26/16 08:10 RBC Morph Micro Appear NORMAL (NORMAL) 10/26/16 08:10 PT 12.7 SECONDS (9.5-11.5) H 10/21/16 19:12 INR 1.21 (0.5-1.4) 10/21/16 19:12 PTT (Actin FS) 33.9 SECONDS (26.0-38.0) 10/25/16 05:05 Sodium 138 mEq/L (136-145) 10/27/16 06:58 Potassium 3.6 mEq/L (3.5-5.1) 10/27/16 06:58 Chloride 103 mEq/L (98-107) 10/27/16 06:58 Carbon Dioxide 21.9 mEq/L (21.0-31.0) 10/27/16 06:58 Anion Gap 16.7 (7.0-16.0) H 10/27/16 06:58 BUN 21 mg/dL (7-25) 10/27/16 06:58 Creatinine 6.5 mg/dL (0.7-1.3) H* 10/27/16 06:58 Est GFR ( Amer) 12.9 ml/min (>90) 10/27/16 06:58 Est GFR (Non-Af Amer) 10.7 ml/min 10/27/16 06:58 BUN/Creatinine Ratio 3.2 10/27/16 06:58 Glucose 156 mg/dL (70-105) H 10/27/16 06:58 POC Glucose 160 MG/DL (70 - 105) H 10/27/16 05:32 Hemoglobin A1c % 8.7 % (4.0-6.0) H 10/21/16 19:12 Whole Bld Lactic Acid 1.08 mmol/L (0.60-1.99) 10/21/16 19:12 Calcium 9.5 mg/dL (8.6-10.3) 10/27/16 06:58 Total Bilirubin 1.0 mg/dL (0.3-1.0) 10/27/16 06:58 AST 38 U/L (13-39) 10/27/16 06:58 ALT 60 U/L (7-52) H 10/27/16 06:58 Alkaline Phosphatase 220 U/L (34-104) H 10/27/16 06:58 Troponin I 0.01 ng/mL (0.01-0.05) 10/21/16 19:12 Total Protein 6.8 gm/dL (6.0-8.3) 10/27/16 06:58 Albumin 3.1 gm/dL (4.2-5.5) L 10/27/16 06:58 Globulin 3.7 gm/dL 10/27/16 06:58 Albumin/Globulin Ratio 0.8 (1.0-1.8) L 10/27/16 06:58 Triglycerides 87 mg/dL (<150) 10/21/16 19:12 Cholesterol 128 mg/dL (<200) 10/21/16 19:12 LDL Cholesterol Direct 31 mg/dL (75-193) L 10/21/16 19:12 HDL Cholesterol 69 mg/dL (23-92) 10/21/16 19:12 Lipase 3 U/L (11-82) L 10/23/16 04:57 TSH 1.28 uIU/ml (0.34-5.60) 10/21/16 19:12 RPR NONREACTIVE (NONREACTIVE) 10/21/16 19:12 Blood Type AB POSITIVE 10/26/16 08:10 Antibody Screen NEGATIVE 10/26/16 08:10 Crossmatch See Detail 10/26/16 08:10 - Physical Exam Vitals and I&O: Vital Signs Temp 97.8 F 10/27/16 10:01 Pulse 96 10/27/16 10:01 Resp 17 10/27/16 10:01 BP 110/75 10/27/16 10:01 Pulse Ox 97 10/27/16 10:01 Intake & Output 10/26/16 10/27/16 10/27/16 18:59 06:59 18:59 Intake Total 1050 200 Output Total 100 Balance 1050 100 Weight (lbs) 44.254 kg Intake: Intake, IV Amount 1050 100 D5-0.45NS 1,000 ml @ 50 1000 mls/hr IV .Q20H RADHA Rx#: [id number] Piperacillin Sodium/ 50 100 Tazobact 2.25 gm In Sodium Chloride 0.9% 50 ml @ 100 mls/hr IV Q8HR RADHA Rx#:[id number] Oral 100 Output: Drainage 100 Upper Abdomen 100 Urine 0 Other: # Bowel Movements 0 Stool Characteristics Formed Active Medications: Current Medications Acetaminophen (Tylenol Extra Strength) 500 mg PO Q6H PRN PRN Reason: FEVER Stop: 12/22/16 16:55 Last Admin: 10/25/16 23:32 Dose: 500 mg Hydromorphone HCl (Dilaudid) 1 mg IVP Q4HR PRN PRN Reason: abd pain Stop: 12/22/16 16:45 Last Admin: 10/27/16 08:22 Dose: 1 mg Piperacillin Sod/Tazobactam (Sod 2.25 gm/ Sodium Chloride) 50 mls @ 100 mls/hr IV Q8HR RADHA Stop: 12/20/16 22:59 Last Infusion: 10/27/16 06:17 Dose: Infused Dextrose/Sodium Chloride (D5-0.45ns) 1,000 mls @ 50 mls/hr IV .Q20H RADHA Stop: 12/24/16 22:18 Last Admin: 10/26/16 19:54 Dose: 50 mls/hr Insulin Aspart (Novolog Insulin Sliding Scale) 0 units SUBQ Q6HR RADHA PRN Reason: Protocol Stop: 12/21/16 17:59 Last Admin: 10/27/16 05:43 Dose: 2 units Levetiracetam (Keppra) 500 mg PO BID RADHA Stop: 12/21/16 16:59 Last Admin: 10/27/16 08:30 Dose: 500 mg Miscellaneous (Clinical Monitoring) 1 ea MC DAILY PRN PRN Reason: RENAL Stop: 12/25/16 08:59 - Procedures Procedures: Procedures Procedure Code Date ABDOMEN SURGERY PROCEDURE 14079 10/21/16 EGD BIOPSY SINGLE/MULTIPLE 78231 02/20/16 EXCISION OF DUODENUM, ENDO, DIAGN [id number] 02/20/16 EXCISION OF STOMACH, PYLORUS, ENDO, DIAGN [id number] 02/20/16 PERFORMANCE OF URINARY FILTRATION, SINGLE [id number] 02/20/16 RELEASE GREATER OMENTUM, OPEN APPROACH [id number] 10/21/16 REMOVAL OF GALLBLADDER 88310 10/21/16 RESECTION OF GALLBLADDER, OPEN APPROACH [id number] 10/21/16 Assessment/Plan - Problem List Patient Problems: All Active Problems NOT FEELING GOOD WITH NAUSEA (Acute) The administrative codes within the IMO content you are accessing may have as of 02/06/2016. Please contact your IT Dept/Help Desk and request the latest Regulatory release be installed. IT Dept/Help Desk- Please refer to our FAQ page ([email or web address]) or contact [employer] Customer Support at [email or web address] (Acute ~02/20/16) Nutritional Asmnt/Malnutr-PDOC - Dietary Evaluation Malnutrition Findings (Please click <Entered> for more info): Nutritional Asmnt/Malnutrition Start: 10/22/16 11: 33 Text: Status: Complete Freq: Document 10/22/16 11:33 GSUN (Rec: 10/22/16 11:58 GSUN [email or web address]) Nutritional Asmnt/Malnutrition Patient General Information Nutritional Screening High Risk Screening Diagnosis ER: acute cholecystitis, ESRD Pertinent Medical Hx/Surgical Hx ER: HTN, DM, ESRD on dialysis, arthritis Subjective Information 30 year old male. Per ER notes , pt is a kidney transplant failure on dialysis 3 times a week, recieved dialysis 10/21. 10/21 CT abdomen:distended gallbladder, chronic pancreatitis. Pt appeared thin overall, possible mild wasting to shoulders, non- severe. RD asked about UBW/dry weight, if pt has spoken to dietitian at dialysis, [facility], to all pt nodded. Pt finally said "my pain is so bad." Unable to provide edu at this time. Current Diet Order/ Nutrition Support NPO Pertinent Medications D5-0.45ns, morphine Pertinent Labs 10/21: BUN 31H, creatinine 6.8H , glucose 208H, A1c 8.7H Nutritional Hx/Data Height 1.52 m Height (Calculated Centimeters) 152.4 Current Weight (lbs) 42.774 kg Weight (Calculated Kilograms) 42.8 Weight (Calculated Grams) 13048.8 [place] Body Weight 106 Weight Status Underweight GI Symptoms Skin Integrity/Comment: Rohit 16. Skin intact. Estimated Nutritional Goals Calories/Kcals/Kg IBW 106lb/48.2kg Kcals Calculated 1446-1687kcal (30-35kcal/kg) Protein Calculated 63-72g (1.3-1.5g/kg) Fluid: ml 1446-1687ml (1ml/kcal) Nutritional Problem 3. Problem Problem Altered nutrition related laboratory values related to Etiology DM aeb Signs/Symptoms: H&P, A1c 8.7H, gglucose 208H on adm 2. Problem Problem Altered GI function related to Etiology unknown etiology aeb Signs/Symptoms: CT: distended gallbladder and chronic pancreatitis, currently NPO 1. Problem Problem Impaired nutrient utilization related to Etiology ESRD aeb Signs/Symptoms: pt is on dialysis, BUN 31H, creatinine 6.8H Intervention/Recommendation Comments 1. When approrpaite to resume diet, recommend [id number] renal diet with Novasource Renal supplement BID in place of beverages. Explained diet to pt, pt nodded. 2. Provide renal [facility] diet education as able. Pt appear to unable to hold conversation at this time due to severe pain. Expected Outcomes/Goals Expected Outcomes/Goals 1. Pt to meet 100% of estimated nutritional needs. 2. Weight trend towards IBW.
[2016-10-27] MEDS: D5-0.45NS 1,000 ML IV SCH (19:45)
[2016-10-27] MEDS: Hydrocodone/APAP 10 mg/325 mg Tab PO PRN (21:14)
[2016-10-28] MEDS: INSULIN ASPART SLIDING SCALE 100 UNITS/ML UNIT SUBQ SCH ×4 (00:30→12:00)
[2016-10-28] MEDS: Hydrocodone/APAP 10 mg/325 mg Tab PO PRN ×3 (05:08→20:38)
[2016-10-28 05:51] LABS: ANION GAP 16.7 (7.0-16.0); BUN/CREATININE RATIO 3.3; CALCIUM SERUM 9.5 mg/dL (8.6-10.3); CARBON DIOXIDE 21.4 mEq/L (21.0-31.0); POTASSIUM SERUM 3.1 mEq/L (3.5-5.1)
[2016-10-28 06:17] LABS: CREATININE - SERUM 8.5 mg/dL (0.7-1.3)
[2016-10-28] MEDS: Acetaminophen 500 MG TAB PO PRN (08:11)
[2016-10-28] MEDS: D5-0.45NS 1,000 ML IV SCH (20:28)
[2016-10-29] MEDS: INSULIN ASPART SLIDING SCALE 100 UNITS/ML UNIT SUBQ SCH ×5 (00:10→17:46)
[2016-10-29] MEDS: Hydrocodone/APAP 10 mg/325 mg Tab PO PRN ×3 (03:53→17:47)
--- NOTE | 2016-10-29 10:34 | General Progress Note ---
Subjective - Review of Systems Service Date: 10/29/16 Events since last encounter: 10/29/16 sleeping most of the time labs ok Objective - Results Result Diagrams: 10/27/16 06:58 10/28/16 04:35 Recent Labs: Laboratory Last Values WBC 12.9 Th/cmm (4.8-10.8) H 10/27/16 06:58 RBC 3.55 Mil/cmm (4.30-5.70) L 10/27/16 06:58 Hgb 10.3 gm/dL (13.2-17.3) L D 10/27/16 06:58 Hct 30.5 % (39.0-49.0) L D 10/27/16 06:58 MCV 85.9 fl (80-99) 10/27/16 06:58 MCH 29.0 pg (26.0-30.0) 10/27/16 06:58 MCHC Differential 33.7 pg (28.0-36.0) 10/27/16 06:58 RDW 14.7 % (11.5-20.0) 10/27/16 06:58 Plt Count 271 Th/cmm (150-400) 10/27/16 06:58 MPV 6.7 fl 10/27/16 06:58 Neutrophils % 77.0 % (40.0-80.0) 10/27/16 06:58 Band Neutrophils % 8 % (0-10) 10/26/16 08:10 Lymphocytes % 10.4 % (20.0-50.0) L 10/27/16 06:58 Monocytes % 8.9 % (2.0-10.0) 10/27/16 06:58 Eosinophils % 2.9 % (0.0-5.0) 10/27/16 06:58 Basophils % 0.8 % (0.0-2.0) 10/27/16 06:58 Neutrophils (Manual) 82 % (40-80) H 10/26/16 08:10 Lymphocytes 6 % (20-50) L 10/26/16 08:10 Monocytes 4 % (2-10) 10/26/16 08:10 Platelet Estimate ADEQUATE (NORMAL) 10/26/16 08:10 Platelet Morphology NORMAL (NORMAL) 10/26/16 08:10 RBC Morph Micro Appear NORMAL (NORMAL) 10/26/16 08:10 PT 12.7 SECONDS (9.5-11.5) H 10/21/16 19:12 INR 1.21 (0.5-1.4) 10/21/16 19:12 PTT (Actin FS) 33.9 SECONDS (26.0-38.0) 10/25/16 05:05 Sodium 136 mEq/L (136-145) 10/28/16 04:35 Potassium 3.1 mEq/L (3.5-5.1) L 10/28/16 04:35 Chloride 101 mEq/L (98-107) 10/28/16 04:35 Carbon Dioxide 21.4 mEq/L (21.0-31.0) 10/28/16 04:35 Anion Gap 16.7 (7.0-16.0) H 10/28/16 04:35 BUN 28 mg/dL (7-25) H 10/28/16 04:35 Creatinine 8.5 mg/dL (0.7-1.3) H* 10/28/16 04:35 Est GFR ( Amer) 9.5 ml/min (>90) 10/28/16 04:35 Est GFR (Non-Af Amer) 7.8 ml/min 10/28/16 04:35 BUN/Creatinine Ratio 3.3 10/28/16 04:35 Glucose 107 mg/dL (70-105) H 10/28/16 04:35 POC Glucose 101 MG/DL (70 - 105) 10/29/16 06:00 Hemoglobin A1c % 8.7 % (4.0-6.0) H 10/21/16 19:12 Whole Bld Lactic Acid 1.08 mmol/L (0.60-1.99) 10/21/16 19:12 Calcium 9.5 mg/dL (8.6-10.3) 10/28/16 04:35 Total Bilirubin 1.0 mg/dL (0.3-1.0) 10/27/16 06:58 AST 38 U/L (13-39) 10/27/16 06:58 ALT 60 U/L (7-52) H 10/27/16 06:58 Alkaline Phosphatase 220 U/L (34-104) H 10/27/16 06:58 Troponin I 0.01 ng/mL (0.01-0.05) 10/21/16 19:12 Total Protein 6.8 gm/dL (6.0-8.3) 10/27/16 06:58 Albumin 3.1 gm/dL (4.2-5.5) L 10/27/16 06:58 Globulin 3.7 gm/dL 10/27/16 06:58 Albumin/Globulin Ratio 0.8 (1.0-1.8) L 10/27/16 06:58 Triglycerides 87 mg/dL (<150) 10/21/16 19:12 Cholesterol 128 mg/dL (<200) 10/21/16 19:12 LDL Cholesterol Direct 31 mg/dL (75-193) L 10/21/16 19:12 HDL Cholesterol 69 mg/dL (23-92) 10/21/16 19:12 Lipase 3 U/L (11-82) L 10/23/16 04:57 TSH 1.28 uIU/ml (0.34-5.60) 10/21/16 19:12 RPR NONREACTIVE (NONREACTIVE) 10/21/16 19:12 Blood Type AB POSITIVE 10/26/16 08:10 Antibody Screen NEGATIVE 10/26/16 08:10 Crossmatch See Detail 10/26/16 08:10 - Physical Exam Vitals and I&O: Vital Signs Temp 98 F 10/29/16 08:00 Pulse 106 10/29/16 08:00 Resp 18 10/29/16 08:00 BP 116/67 10/29/16 08:00 Pulse Ox 100 10/29/16 08:00 Intake & Output 10/28/16 10/29/16 10/29/16 18:59 06:59 18:59 Intake Total 1050 576.667 Output Total 0 Balance 1050 576.667 Weight (lbs) 46.765 kg 46.266 kg Intake: Intake, IV Amount 1050 576.667 D5-0.45NS 1,000 ml @ 50 1000 476.667 mls/hr IV .Q20H RADHA Rx#: [id number] Piperacillin Sodium/ 50 100 Tazobact 2.25 gm In Sodium Chloride 0.9% 50 ml @ 100 mls/hr IV Q8HR RADHA Rx#:[id number] Output: Urine 0 Other: # Bowel Movements 0 Stool Characteristics Soft Brown Active Medications: Current Medications Acetaminophen (Tylenol Extra Strength) 500 mg PO Q6H PRN PRN Reason: FEVER Stop: 12/22/16 16:55 Last Admin: 10/28/16 08:11 Dose: 500 mg Acetaminophen/Hydrocodone Bitart ([place] 10 Mg/325 Mg) 1 tab PO Q6H PRN PRN Reason: pain Stop: 12/26/16 16:21 Last Admin: 10/29/16 10:21 Dose: 1 tab Piperacillin Sod/Tazobactam (Sod 2.25 gm/ Sodium Chloride) 50 mls @ 100 mls/hr IV Q8HR RADHA Stop: 12/20/16 22:59 Last Infusion: 10/29/16 06:00 Dose: Infused Dextrose/Sodium Chloride (D5-0.45ns) 1,000 mls @ 50 mls/hr IV .Q20H RADHA Stop: 12/24/16 22:18 Last Infusion: 10/29/16 06:00 Dose: 50 mls/hr Insulin Aspart (Novolog Insulin Sliding Scale) 0 units SUBQ Q6HR RADHA PRN Reason: Protocol Stop: 12/21/16 17:59 Last Admin: 10/29/16 06:24 Dose: Not Given Levetiracetam (Keppra) 500 mg PO BID RADHA Stop: 12/21/16 16:59 Last Admin: 10/29/16 10:20 Dose: 500 mg Miscellaneous (Clinical Monitoring) 1 ea MC DAILY PRN PRN Reason: RENAL Stop: 12/25/16 08:59 Ondansetron HCl (Zofran) 4 mg IV Q6H PRN PRN Reason: Nausea / Vomiting Stop: 12/27/16 22:46 Last Admin: 10/29/16 00:11 Dose: 4 mg - Procedures Procedures: Procedures Procedure Code Date ABDOMEN SURGERY PROCEDURE 67894 10/21/16 EGD BIOPSY SINGLE/MULTIPLE 09361 02/20/16 EXCISION OF DUODENUM, ENDO, DIAGN [id number] 02/20/16 EXCISION OF STOMACH, PYLORUS, ENDO, DIAGN [id number] 02/20/16 PERFORMANCE OF URINARY FILTRATION, SINGLE [id number] 02/20/16 RELEASE GREATER OMENTUM, OPEN APPROACH [id number] 10/21/16 REMOVAL OF GALLBLADDER 85211 10/21/16 RESECTION OF GALLBLADDER, OPEN APPROACH [id number] 10/21/16 Assessment/Plan - Problem List Patient Problems: All Active Problems NOT FEELING GOOD WITH NAUSEA (Acute) The administrative codes within the [employer] content you are accessing may have as of 02/06/2016. Please contact your IT Dept/Help Desk and request the latest Regulatory release be installed. IT Dept/Help Desk- Please refer to our FAQ page ([email or web address]) or contact [employer] Customer Support at [email or web address] (Acute ~02/20/16) Nutritional Asmnt/Malnutr-PDOC - Dietary Evaluation Malnutrition Findings (Please click <Entered> for more info): Nutritional Asmnt/Malnutrition Start: 10/22/16 11: 33 Text: Status: Complete Freq: Document 10/22/16 11:33 GSUN (Rec: 10/22/16 11:58 [email or web address] [email or web address]) Nutritional Asmnt/Malnutrition Patient General Information Nutritional Screening High Risk Screening Diagnosis ER: acute cholecystitis, ESRD Pertinent Medical Hx/Surgical Hx ER: HTN, DM, ESRD on dialysis, arthritis Subjective Information 30 year old male. Per ER notes , pt is a kidney transplant failure on dialysis 3 times a week, recieved dialysis 10/21. 10/21 CT abdomen:distended gallbladder, chronic pancreatitis. Pt appeared thin overall, possible mild wasting to shoulders, non- severe. RD asked about UBW/dry weight, if pt has spoken to dietitian at dialysis, [facility] after NPO, to all pt nodded. Pt finally said "my pain is so bad." Unable to provide edu at this time. Current Diet Order/ Nutrition Support NPO Pertinent Medications D5-0.45ns, morphine Pertinent Labs 10/21: BUN 31H, creatinine 6.8H , glucose 208H, A1c 8.7H Nutritional Hx/Data Height 1.52 m Height (Calculated Centimeters) 152.4 Current Weight (lbs) 42.774 kg Weight (Calculated Kilograms) 42.8 Weight (Calculated Grams) 54328.8 [place] Body Weight 106 Weight Status Underweight GI Symptoms Skin Integrity/Comment: Rohit 16. Skin intact. Estimated Nutritional Goals Calories/Kcals/Kg IBW 106lb/48.2kg Kcals Calculated 1446-1687kcal (30-35kcal/kg) Protein Calculated 63-72g (1.3-1.5g/kg) Fluid: ml 1446-1687ml (1ml/kcal) Nutritional Problem 3. Problem Problem Altered nutrition related laboratory values related to Etiology DM aeb Signs/Symptoms: H&P, A1c 8.7H, gglucose 208H on adm 2. Problem Problem Altered GI function related to Etiology unknown etiology aeb Signs/Symptoms: CT: distended gallbladder and chronic pancreatitis, currently NPO 1. Problem Problem Impaired nutrient utilization related to Etiology ESRD aeb Signs/Symptoms: pt is on dialysis, BUN 31H, creatinine 6.8H Intervention/Recommendation Comments 1. When approrpaite to resume diet, recommend [id number] renal diet with Novasource Renal supplement BID in place of beverages. Explained diet to pt, pt nodded. 2. Provide renal CCHO diet education as able. Pt appear to unable to hold conversation at this time due to severe pain. Expected Outcomes/Goals Expected Outcomes/Goals 1. Pt to meet 100% of estimated nutritional needs. 2. Weight trend towards IBW.
[2016-10-29] MEDS: D5-0.45NS 1,000 ML IV SCH (18:10)
[2016-10-30] MEDS: INSULIN ASPART SLIDING SCALE 100 UNITS/ML UNIT SUBQ SCH ×4 (00:10→18:22)
[2016-10-30] MEDS: Hydrocodone/APAP 10 mg/325 mg Tab PO PRN ×2 (03:36→19:53)
[2016-10-30 07:10] LABS: % EOSINOPHILS 3.7 % (0.0-5.0); % LYMPHOCYTES 13.5 % (20.0-50.0); % MONOCYTES 9.2 % (2.0-10.0); % NEUTROPHILS 72.6 % (40.0-80.0); HEMATOCRIT 25.4 % (39.0-49.0); HEMOGLOBIN 8.7 gm/dL (13.2-17.3); MEAN CELL VOLUME 85.8 fl (80-99); MEAN CORPUSCULAR HEMOGLOBIN 29.5 pg (26.0-30.0); MEAN CORPUSCULAR HGB CONC 34.4 pg (28.0-36.0); MEAN PLATELET VOLUME 6.2 fl; NEUTROPHILE ABSOLUTE 8.9 Th/cmm (1.8-8.0); PLATELET COUNT 297 Th/cmm (150-400); RED BLOOD COUNT 2.96 Mil/cmm (4.30-5.70); RED CELL DISTRIBUTION WIDTH 14.4 % (11.5-20.0); WHITE BLOOD COUNT 12.3 Th/cmm (4.8-10.8)
[2016-10-30 07:36] LABS: ALB/GLOB RATIO 0.8 (1.0-1.8); ANION GAP 13.8 (7.0-16.0); BILIRUBIN,TOTAL 0.8 mg/dL (0.3-1.0); BUN/CREATININE RATIO 3.3; CALCIUM SERUM 9.2 mg/dL (8.6-10.3); CARBON DIOXIDE 23.5 mEq/L (21.0-31.0); POTASSIUM SERUM 3.3 mEq/L (3.5-5.1)
[2016-10-30 07:50] LABS: CREATININE - SERUM 7.8 mg/dL (0.7-1.3)
[2016-10-30] MEDS: D5-0.45NS 1,000 ML IV SCH (17:04)
[2016-10-31] MEDS: INSULIN ASPART SLIDING SCALE 100 UNITS/ML UNIT SUBQ SCH ×3 (00:06→12:39)
[2016-10-31] MEDS: Hydrocodone/APAP 10 mg/325 mg Tab PO PRN ×2 (04:45→10:36)
--- NOTE | 2016-10-31 09:13 | General Progress Note ---
Subjective - Review of Systems Service Date: 10/31/16 Events since last encounter: redressed, incision is healing well Objective - Results Result Diagrams: 10/30/16 06:49 10/30/16 06:49 Recent Labs: Laboratory Last Values WBC 12.3 Th/cmm (4.8-10.8) H 10/30/16 06:49 RBC 2.96 Mil/cmm (4.30-5.70) L 10/30/16 06:49 Hgb 8.7 gm/dL (13.2-17.3) L 10/30/16 06:49 Hct 25.4 % (39.0-49.0) L D 10/30/16 06:49 MCV 85.8 fl (80-99) 10/30/16 06:49 MCH 29.5 pg (26.0-30.0) 10/30/16 06:49 MCHC Differential 34.4 pg (28.0-36.0) 10/30/16 06:49 RDW 14.4 % (11.5-20.0) 10/30/16 06:49 Plt Count 297 Th/cmm (150-400) 10/30/16 06:49 MPV 6.2 fl 10/30/16 06:49 Neutrophils % 72.6 % (40.0-80.0) 10/30/16 06:49 Band Neutrophils % 8 % (0-10) 10/26/16 08:10 Lymphocytes % 13.5 % (20.0-50.0) L 10/30/16 06:49 Monocytes % 9.2 % (2.0-10.0) 10/30/16 06:49 Eosinophils % 3.7 % (0.0-5.0) 10/30/16 06:49 Basophils % 1.0 % (0.0-2.0) 10/30/16 06:49 Neutrophils (Manual) 82 % (40-80) H 10/26/16 08:10 Lymphocytes 6 % (20-50) L 10/26/16 08:10 Monocytes 4 % (2-10) 10/26/16 08:10 Platelet Estimate ADEQUATE (NORMAL) 10/26/16 08:10 Platelet Morphology NORMAL (NORMAL) 10/26/16 08:10 RBC Morph Micro Appear NORMAL (NORMAL) 10/26/16 08:10 PT 12.7 SECONDS (9.5-11.5) H 10/21/16 19:12 INR 1.21 (0.5-1.4) 10/21/16 19:12 PTT (Actin FS) 33.9 SECONDS (26.0-38.0) 10/25/16 05:05 Sodium 134 mEq/L (136-145) L 10/30/16 06:49 Potassium 3.3 mEq/L (3.5-5.1) L 10/30/16 06:49 Chloride 100 mEq/L (98-107) 10/30/16 06:49 Carbon Dioxide 23.5 mEq/L (21.0-31.0) 10/30/16 06:49 Anion Gap 13.8 (7.0-16.0) 10/30/16 06:49 BUN 26 mg/dL (7-25) H 10/30/16 06:49 Creatinine 7.8 mg/dL (0.7-1.3) H* 10/30/16 06:49 Est GFR ( Amer) 10.5 ml/min (>90) 10/30/16 06:49 Est GFR (Non-Af Amer) 8.7 ml/min 10/30/16 06:49 BUN/Creatinine Ratio 3.3 10/30/16 06:49 Glucose 153 mg/dL (70-105) H 10/30/16 06:49 POC Glucose 141 MG/DL (70 - 105) H 10/31/16 05:13 Hemoglobin A1c % 8.7 % (4.0-6.0) H 10/21/16 19:12 Whole Bld Lactic Acid 1.08 mmol/L (0.60-1.99) 10/21/16 19:12 Calcium 9.2 mg/dL (8.6-10.3) 10/30/16 06:49 Total Bilirubin 0.8 mg/dL (0.3-1.0) 10/30/16 06:49 AST 58 U/L (13-39) H 10/30/16 06:49 ALT 49 U/L (7-52) 10/30/16 06:49 Alkaline Phosphatase 214 U/L (34-104) H 10/30/16 06:49 Troponin I 0.01 ng/mL (0.01-0.05) 10/21/16 19:12 Total Protein 6.3 gm/dL (6.0-8.3) 10/30/16 06:49 Albumin 2.8 gm/dL (4.2-5.5) L 10/30/16 06:49 Globulin 3.5 gm/dL 10/30/16 06:49 Albumin/Globulin Ratio 0.8 (1.0-1.8) L 10/30/16 06:49 Triglycerides 87 mg/dL (<150) 10/21/16 19:12 Cholesterol 128 mg/dL (<200) 10/21/16 19:12 LDL Cholesterol Direct 31 mg/dL (75-193) L 10/21/16 19:12 HDL Cholesterol 69 mg/dL (23-92) 10/21/16 19:12 Lipase 3 U/L (11-82) L 10/23/16 04:57 TSH 1.28 uIU/ml (0.34-5.60) 10/21/16 19:12 RPR NONREACTIVE (NONREACTIVE) 10/21/16 19:12 Blood Type AB POSITIVE 10/26/16 08:10 Antibody Screen NEGATIVE 10/26/16 08:10 Crossmatch See Detail 10/26/16 08:10 - Physical Exam Vitals and I&O: Vital Signs Temp 98.7 F 10/31/16 04:00 Pulse 94 10/31/16 04:00 Resp 20 10/31/16 04:00 BP 103/62 10/31/16 04:00 Pulse Ox 98 10/31/16 04:00 Intake & Output 10/30/16 10/31/16 10/31/16 18:59 06:59 18:59 Intake Total 1200 250 Output Total 100 50 Balance 1100 200 Weight (lbs) 46.351 kg 46.351 kg Intake: Intake, IV Amount 1050 100 D5-0.45NS 1,000 ml @ 50 1000 mls/hr IV .Q20H RADHA Rx#: [id number] Piperacillin Sodium/ 50 100 Tazobact 2.25 gm In Sodium Chloride 0.9% 50 ml @ 100 mls/hr IV Q8HR RADHA Rx#:[id number] Oral 150 150 Output: Urine 100 50 Other: # Voids 2 1 # Bowel Movements 0 Active Medications: Current Medications Acetaminophen (Tylenol Extra Strength) 500 mg PO Q6H PRN PRN Reason: FEVER Stop: 12/22/16 16:55 Last Admin: 10/28/16 08:11 Dose: 500 mg Acetaminophen/Hydrocodone Bitart ([place] 10 Mg/325 Mg) 1 tab PO Q6H PRN PRN Reason: pain Stop: 12/26/16 16:21 Last Admin: 10/31/16 04:45 Dose: 1 tab Dextrose/Sodium Chloride (D5-0.45ns) 1,000 mls @ 50 mls/hr IV .Q20H RADHA Stop: 12/24/16 22:18 Last Admin: 10/30/16 17:04 Dose: 50 mls/hr Piperacillin Sod/Tazobactam (Sod 2.25 gm/ Sodium Chloride) 50 mls @ 100 mls/hr IV Q8HR RADHA Stop: 12/29/16 15:58 Last Infusion: 10/31/16 05:19 Dose: Infused Insulin Aspart (Novolog Insulin Sliding Scale) 0 units SUBQ Q6HR RADHA PRN Reason: Protocol Stop: 12/21/16 17:59 Last Admin: 10/31/16 06:08 Dose: Not Given Levetiracetam (Keppra) 500 mg PO BID RADHA Stop: 12/21/16 16:59 Last Admin: 10/30/16 16:58 Dose: 500 mg Miscellaneous (Clinical Monitoring) 1 ea MC DAILY PRN PRN Reason: RENAL Stop: 12/25/16 08:59 Ondansetron HCl (Zofran) 4 mg IV Q6H PRN PRN Reason: Nausea / Vomiting Stop: 12/27/16 22:46 Last Admin: 10/29/16 00:11 Dose: 4 mg - Procedures Procedures: Procedures Procedure Code Date ABDOMEN SURGERY PROCEDURE 21074 10/21/16 EGD BIOPSY SINGLE/MULTIPLE 72447 02/20/16 EXCISION OF DUODENUM, ENDO, DIAGN [id number] 02/20/16 EXCISION OF STOMACH, PYLORUS, ENDO, DIAGN [id number] 02/20/16 PERFORMANCE OF URINARY FILTRATION, SINGLE [id number] 02/20/16 RELEASE GREATER OMENTUM, OPEN APPROACH [id number] 10/21/16 REMOVAL OF GALLBLADDER 16647 10/21/16 RESECTION OF GALLBLADDER, OPEN APPROACH [id number] 10/21/16 Assessment/Plan - Problem List Patient Problems: All Active Problems NOT FEELING GOOD WITH NAUSEA (Acute) The administrative codes within the [facility] content you are accessing may have as of 02/06/2016. Please contact your IT Dept/Help Desk and request the latest Regulatory release be installed. IT Dept/Help Desk- Please refer to our FAQ page ([email or web address]) or contact [employer] Customer Support at [email or web address] (Acute ~02/20/16) Nutritional Asmnt/Malnutr-PDOC - Dietary Evaluation Malnutrition Findings (Please click <Entered> for more info): Nutritional Asmnt/Malnutrition Start: 10/22/16 11: 33 Text: Status: Complete Freq: Document 10/22/16 11:33 GSUN (Rec: 10/22/16 11:58 GSUN [email or web address]) Nutritional Asmnt/Malnutrition Patient General Information Nutritional Screening High Risk Screening Diagnosis ER: acute cholecystitis, ESRD Pertinent Medical Hx/Surgical Hx ER: HTN, DM, ESRD on dialysis, arthritis Subjective Information 30 year old male. Per ER notes , pt is a kidney transplant failure on dialysis 3 times a week, recieved dialysis 10/21. 10/21 CT abdomen:distended gallbladder, chronic pancreatitis. Pt appeared thin overall, possible mild wasting to shoulders, non- severe. RD asked about UBW/dry weight, if pt has spoken to dietitian at dialysis, explained CCHO renal diet after NPO, to all pt nodded. Pt finally said "my pain is so bad." Unable to provide edu at this time. Current Diet Order/ Nutrition Support NPO Pertinent Medications D5-0.45ns, morphine Pertinent Labs 10/21: BUN 31H, creatinine 6.8H , glucose 208H, A1c 8.7H Nutritional Hx/Data Height 1.52 m Height (Calculated Centimeters) 152.4 Current Weight (lbs) 42.774 kg Weight (Calculated Kilograms) 42.8 Weight (Calculated Grams) 86966.8 [place] Body Weight 106 Weight Status Underweight GI Symptoms Skin Integrity/Comment: Rohit 16. Skin intact. Estimated Nutritional Goals Calories/Kcals/Kg IBW 106lb/48.2kg Kcals Calculated 1446-1687kcal (30-35kcal/kg) Protein Calculated 63-72g (1.3-1.5g/kg) Fluid: ml 1446-1687ml (1ml/kcal) Nutritional Problem 3. Problem Problem Altered nutrition related laboratory values related to Etiology DM aeb Signs/Symptoms: H&P, A1c 8.7H, gglucose 208H on adm 2. Problem Problem Altered GI function related to Etiology unknown etiology aeb Signs/Symptoms: CT: distended gallbladder and chronic pancreatitis, currently NPO 1. Problem Problem Impaired nutrient utilization related to Etiology ESRD aeb Signs/Symptoms: pt is on dialysis, BUN 31H, creatinine 6.8H Intervention/Recommendation Comments 1. When approrpaite to resume diet, recommend [id number] renal diet with Novasource Renal supplement BID in place of beverages. Explained diet to pt, pt nodded. 2. Provide [facility] diet education as able. Pt appear to unable to hold conversation at this time due to severe pain. Expected Outcomes/Goals Expected Outcomes/Goals 1. Pt to meet 100% of estimated nutritional needs. 2. Weight trend towards IBW.
--- NOTE | 2016-11-17 21:32 | Discharge Summary ---
General Discharge Summary - Discharge Summary Date of Admission: 10/21/16 Admitting Diagnosis: ABDOMINAL PAIN Patient Problems: All Active Problems NOT FEELING GOOD WITH NAUSEA (Acute) The administrative codes within the [employer] content you are accessing may have as of 02/06/2016. Please contact your IT Dept/Help Desk and request the latest Regulatory release be installed. IT Dept/Help Desk- Please refer to our FAQ page ([email or web address]) or contact [facility] Customer Support at [email or web address] (Acute ~02/20/16) WEAKNESS WITH RIGHT LOWER QUAD PAIN (Acute) WEAKNESS WITH RIGHT LOWER QUAD PAIN (Acute) Discharge Date: 10/31/16 Discharge Diagnosis: ACUTE CHOLECYSTITIS,ESRD ON HD,DM,SEIZURE,CYSTIC DUCT OBSN. Laboratory Findings: Laboratory Tests 10/22/16 10/22/16 10/23/16 17:39 23:33 04:57 WBC 14.5 H RBC 3.47 L Hgb 9.8 L Hct 29.6 L D MCV 85.2 MCH 28.1 MCHC Differential 33.0 RDW 15.5 Plt Count 219 MPV 7.6 Neutrophils % 75.5 Band Neutrophils % Lymphocytes % 11.4 L Monocytes % 8.2 Eosinophils % 4.2 Basophils % 0.7 Neutrophils (Manual) Lymphocytes Monocytes Platelet Estimate Platelet Morphology RBC Morph Micro Appear PTT (Actin FS) Sodium Potassium Chloride Carbon Dioxide Anion Gap BUN Creatinine Est GFR ( Amer) Est GFR (Non-Af Amer) BUN/Creatinine Ratio Glucose POC Glucose 130 H 175 H Calcium Total Bilirubin AST ALT Alkaline Phosphatase Total Protein Albumin Globulin Albumin/Globulin Ratio Lipase Blood Type Antibody Screen Crossmatch 10/23/16 10/23/16 10/23/16 04:57 05:37 18:09 WBC RBC Hgb Hct MCV MCH MCHC Differential RDW Plt Count MPV Neutrophils % Band Neutrophils % Lymphocytes % Monocytes % Eosinophils % Basophils % Neutrophils (Manual) Lymphocytes Monocytes Platelet Estimate Platelet Morphology RBC Morph Micro Appear PTT (Actin FS) Sodium 131 L Potassium 3.7 Chloride 95 L Carbon Dioxide 22.2 Anion Gap 17.5 H BUN 52 H Creatinine 9.9 H* Est GFR ( Amer) 8.0 Est GFR (Non-Af Amer) 6.6 BUN/Creatinine Ratio 5.3 Glucose 163 H POC Glucose 160 H 126 H Calcium 9.7 Total Bilirubin 1.2 H AST 76 H ALT 73 H Alkaline Phosphatase 206 H Total Protein 6.7 Albumin 3.4 L Globulin 3.3 Albumin/Globulin Ratio 1.0 Lipase 3 L Blood Type Antibody Screen Crossmatch 10/24/16 10/24/16 10/24/16 00:01 06:11 16:36 WBC RBC Hgb Hct MCV MCH MCHC Differential RDW Plt Count MPV Neutrophils % Band Neutrophils % Lymphocytes % Monocytes % Eosinophils % Basophils % Neutrophils (Manual) Lymphocytes Monocytes Platelet Estimate Platelet Morphology RBC Morph Micro Appear PTT (Actin FS) Sodium Potassium Chloride Carbon Dioxide Anion Gap BUN Creatinine Est GFR ( Amer) Est GFR (Non-Af Amer) BUN/Creatinine Ratio Glucose POC Glucose 131 H 134 H 114 H Calcium Total Bilirubin AST ALT Alkaline Phosphatase Total Protein Albumin Globulin Albumin/Globulin Ratio Lipase Blood Type Antibody Screen Crossmatch 10/24/16 10/25/16 10/25/16 20:37 05:05 05:05 WBC 11.8 H RBC 3.19 L Hgb 9.2 L Hct 27.4 L MCV 86.0 MCH 28.9 MCHC Differential 33.6 RDW 15.3 Plt Count 290 D MPV 6.6 Neutrophils % 72.6 Band Neutrophils % Lymphocytes % 12.9 L Monocytes % 9.8 Eosinophils % 4.2 Basophils % 0.5 Neutrophils (Manual) Lymphocytes Monocytes Platelet Estimate Platelet Morphology RBC Morph Micro Appear PTT (Actin FS) Sodium 139 Potassium 3.4 L Chloride 98 Carbon Dioxide 25.0 Anion Gap 19.4 H BUN 31 H Creatinine 7.6 H* Est GFR ( Amer) 10.8 Est GFR (Non-Af Amer) 8.9 BUN/Creatinine Ratio 4.1 Glucose 152 H POC Glucose 130 H Calcium 9.2 Total Bilirubin 1.0 AST 87 H ALT 113 H Alkaline Phosphatase 346 H Total Protein 7.4 Albumin 2.4 L Globulin 5.0 Albumin/Globulin Ratio 0.5 L Lipase Blood Type Antibody Screen Crossmatch 10/25/16 10/25/16 10/25/16 05:05 05:36 11:49 WBC RBC Hgb Hct MCV MCH MCHC Differential RDW Plt Count MPV Neutrophils % Band Neutrophils % Lymphocytes % Monocytes % Eosinophils % Basophils % Neutrophils (Manual) Lymphocytes Monocytes Platelet Estimate Platelet Morphology RBC Morph Micro Appear PTT (Actin FS) 33.9 Sodium Potassium Chloride Carbon Dioxide Anion Gap BUN Creatinine Est GFR ( Amer) Est GFR (Non-Af Amer) BUN/Creatinine Ratio Glucose POC Glucose 139 H 166 H Calcium Total Bilirubin AST ALT Alkaline Phosphatase Total Protein Albumin Globulin Albumin/Globulin Ratio Lipase Blood Type Antibody Screen Crossmatch 10/25/16 10/25/16 10/26/16 16:38 21:42 05:48 WBC RBC Hgb Hct MCV MCH MCHC Differential RDW Plt Count MPV Neutrophils % Band Neutrophils % Lymphocytes % Monocytes % Eosinophils % Basophils % Neutrophils (Manual) Lymphocytes Monocytes Platelet Estimate Platelet Morphology RBC Morph Micro Appear PTT (Actin FS) Sodium Potassium Chloride Carbon Dioxide Anion Gap BUN Creatinine Est GFR ( Amer) Est GFR (Non-Af Amer) BUN/Creatinine Ratio Glucose POC Glucose 105 118 H 231 H Calcium Total Bilirubin AST ALT Alkaline Phosphatase Total Protein Albumin Globulin Albumin/Globulin Ratio Lipase Blood Type Antibody Screen Crossmatch 10/26/16 10/26/16 10/26/16 06:00 08:10 08:10 WBC 15.6 H D RBC 2.61 L Hgb 7.5 L* D Hct 22.5 L* D MCV 86.1 MCH 28.8 MCHC Differential 33.5 RDW 15.9 Plt Count 277 MPV 6.8 Neutrophils % Band Neutrophils % 8 Lymphocytes % Monocytes % Eosinophils % Basophils % Neutrophils (Manual) 82 H Lymphocytes 6 L Monocytes 4 Platelet Estimate ADEQUATE Platelet Morphology NORMAL RBC Morph Micro Appear NORMAL PTT (Actin FS) Sodium 136 Potassium 3.9 Chloride 98 Carbon Dioxide 22.7 Anion Gap 19.2 H BUN 43 H Creatinine 9.9 H* Est GFR ( Amer) 8.0 Est GFR (Non-Af Amer) 6.6 BUN/Creatinine Ratio 4.3 Glucose 227 H POC Glucose Calcium 9.7 Total Bilirubin 1.0 AST 72 H ALT 81 H Alkaline Phosphatase 247 H Total Protein 6.7 Albumin 3.0 L Globulin 3.7 Albumin/Globulin Ratio 0.8 L Lipase Blood Type AB POSITIVE Antibody Screen NEGATIVE Crossmatch See Detail 10/26/16 10/26/16 10/26/16 11:57 18:05 23:22 WBC RBC Hgb Hct MCV MCH MCHC Differential RDW Plt Count MPV Neutrophils % Band Neutrophils % Lymphocytes % Monocytes % Eosinophils % Basophils % Neutrophils (Manual) Lymphocytes Monocytes Platelet Estimate Platelet Morphology RBC Morph Micro Appear PTT (Actin FS) Sodium Potassium Chloride Carbon Dioxide Anion Gap BUN Creatinine Est GFR ( Amer) Est GFR (Non-Af Amer) BUN/Creatinine Ratio Glucose POC Glucose 163 H 147 H 150 H Calcium Total Bilirubin AST ALT Alkaline Phosphatase Total Protein Albumin Globulin Albumin/Globulin Ratio Lipase Blood Type Antibody Screen Crossmatch 10/27/16 10/27/16 10/27/16 05:32 06:58 06:58 WBC 12.9 H RBC 3.55 L Hgb 10.3 L D Hct 30.5 L D MCV 85.9 MCH 29.0 MCHC Differential 33.7 RDW 14.7 Plt Count 271 MPV 6.7 Neutrophils % 77.0 Band Neutrophils % Lymphocytes % 10.4 L Monocytes % 8.9 Eosinophils % 2.9 Basophils % 0.8 Neutrophils (Manual) Lymphocytes Monocytes Platelet Estimate Platelet Morphology RBC Morph Micro Appear PTT (Actin FS) Sodium 138 Potassium 3.6 Chloride 103 Carbon Dioxide 21.9 Anion Gap 16.7 H BUN 21 Creatinine 6.5 H* Est GFR ( Amer) 12.9 Est GFR (Non-Af Amer) 10.7 BUN/Creatinine Ratio 3.2 Glucose 156 H POC Glucose 160 H Calcium 9.5 Total Bilirubin 1.0 AST 38 ALT 60 H Alkaline Phosphatase 220 H Total Protein 6.8 Albumin 3.1 L Globulin 3.7 Albumin/Globulin Ratio 0.8 L Lipase Blood Type Antibody Screen Crossmatch 10/27/16 10/27/16 10/27/16 12:53 17:57 23:53 WBC RBC Hgb Hct MCV MCH MCHC Differential RDW Plt Count MPV Neutrophils % Band Neutrophils % Lymphocytes % Monocytes % Eosinophils % Basophils % Neutrophils (Manual) Lymphocytes Monocytes Platelet Estimate Platelet Morphology RBC Morph Micro Appear PTT (Actin FS) Sodium Potassium Chloride Carbon Dioxide Anion Gap BUN Creatinine Est GFR ( Amer) Est GFR (Non-Af Amer) BUN/Creatinine Ratio Glucose POC Glucose 161 H 134 H 174 H Calcium Total Bilirubin AST ALT Alkaline Phosphatase Total Protein Albumin Globulin Albumin/Globulin Ratio Lipase Blood Type Antibody Screen Crossmatch 10/28/16 10/28/16 10/28/16 04:35 05:39 11:31 WBC RBC Hgb Hct MCV MCH MCHC Differential RDW Plt Count MPV Neutrophils % Band Neutrophils % Lymphocytes % Monocytes % Eosinophils % Basophils % Neutrophils (Manual) Lymphocytes Monocytes Platelet Estimate Platelet Morphology RBC Morph Micro Appear PTT (Actin FS) Sodium 136 Potassium 3.1 L Chloride 101 Carbon Dioxide 21.4 Anion Gap 16.7 H BUN 28 H Creatinine 8.5 H* Est GFR ( Amer) 9.5 Est GFR (Non-Af Amer) 7.8 BUN/Creatinine Ratio 3.3 Glucose 107 H POC Glucose 127 H 170 H Calcium 9.5 Total Bilirubin AST ALT Alkaline Phosphatase Total Protein Albumin Globulin Albumin/Globulin Ratio Lipase Blood Type Antibody Screen Crossmatch 10/29/16 10/29/16 10/29/16 00:00 06:00 13:13 WBC RBC Hgb Hct MCV MCH MCHC Differential RDW Plt Count MPV Neutrophils % Band Neutrophils % Lymphocytes % Monocytes % Eosinophils % Basophils % Neutrophils (Manual) Lymphocytes Monocytes Platelet Estimate Platelet Morphology RBC Morph Micro Appear PTT (Actin FS) Sodium Potassium Chloride Carbon Dioxide Anion Gap BUN Creatinine Est GFR ( Amer) Est GFR (Non-Af Amer) BUN/Creatinine Ratio Glucose POC Glucose 153 H 101 159 H Calcium Total Bilirubin AST ALT Alkaline Phosphatase Total Protein Albumin Globulin Albumin/Globulin Ratio Lipase Blood Type Antibody Screen Crossmatch 10/29/16 10/29/16 10/30/16 17:44 23:40 05:56 WBC RBC Hgb Hct MCV MCH MCHC Differential RDW Plt Count MPV Neutrophils % Band Neutrophils % Lymphocytes % Monocytes % Eosinophils % Basophils % Neutrophils (Manual) Lymphocytes Monocytes Platelet Estimate Platelet Morphology RBC Morph Micro Appear PTT (Actin FS) Sodium Potassium Chloride Carbon Dioxide Anion Gap BUN Creatinine Est GFR ( Amer) Est GFR (Non-Af Amer) BUN/Creatinine Ratio Glucose POC Glucose 133 H 135 H 151 H Calcium Total Bilirubin AST ALT Alkaline Phosphatase Total Protein Albumin Globulin Albumin/Globulin Ratio Lipase Blood Type Antibody Screen Crossmatch 10/30/16 10/30/16 10/30/16 06:49 06:49 12:07 WBC 12.3 H RBC 2.96 L Hgb 8.7 L Hct 25.4 L D MCV 85.8 MCH 29.5 MCHC Differential 34.4 RDW 14.4 Plt Count 297 MPV 6.2 Neutrophils % 72.6 Band Neutrophils % Lymphocytes % 13.5 L Monocytes % 9.2 Eosinophils % 3.7 Basophils % 1.0 Neutrophils (Manual) Lymphocytes Monocytes Platelet Estimate Platelet Morphology RBC Morph Micro Appear PTT (Actin FS) Sodium 134 L Potassium 3.3 L Chloride 100 Carbon Dioxide 23.5 Anion Gap 13.8 BUN 26 H Creatinine 7.8 H* Est GFR ( Amer) 10.5 Est GFR (Non-Af Amer) 8.7 BUN/Creatinine Ratio 3.3 Glucose 153 H POC Glucose 138 H Calcium 9.2 Total Bilirubin 0.8 AST 58 H ALT 49 Alkaline Phosphatase 214 H Total Protein 6.3 Albumin 2.8 L Globulin 3.5 Albumin/Globulin Ratio 0.8 L Lipase Blood Type Antibody Screen Crossmatch 10/30/16 10/30/16 10/31/16 18:21 23:25 05:13 WBC RBC Hgb Hct MCV MCH MCHC Differential RDW Plt Count MPV Neutrophils % Band Neutrophils % Lymphocytes % Monocytes % Eosinophils % Basophils % Neutrophils (Manual) Lymphocytes Monocytes Platelet Estimate Platelet Morphology RBC Morph Micro Appear PTT (Actin FS) Sodium Potassium Chloride Carbon Dioxide Anion Gap BUN Creatinine Est GFR ( Amer) Est GFR (Non-Af Amer) BUN/Creatinine Ratio Glucose POC Glucose 116 H 141 H 141 H Calcium Total Bilirubin AST ALT Alkaline Phosphatase Total Protein Albumin Globulin Albumin/Globulin Ratio Lipase Blood Type Antibody Screen Crossmatch 10/31/16 12:38 WBC RBC Hgb Hct MCV MCH MCHC Differential RDW Plt Count MPV Neutrophils % Band Neutrophils % Lymphocytes % Monocytes % Eosinophils % Basophils % Neutrophils (Manual) Lymphocytes Monocytes Platelet Estimate Platelet Morphology RBC Morph Micro Appear PTT (Actin FS) Sodium Potassium Chloride Carbon Dioxide Anion Gap BUN Creatinine Est GFR ( Amer) Est GFR (Non-Af Amer) BUN/Creatinine Ratio Glucose POC Glucose 130 H Calcium Total Bilirubin AST ALT Alkaline Phosphatase Total Protein Albumin Globulin Albumin/Globulin Ratio Lipase Blood Type Antibody Screen Crossmatch Hospital Course: PATIENT WAS ADMITTED TO MED SURG FLOOR FROM ER FOR EVALUATION OF ABDOMINAL PAIN. PATIENT WAS SEEN BY GI AND GENERAL SURGERY. PATIENT WAS SEEN BY ANIMAL ANATOMY TEACHER FOR DIALYSIS. DIABETES WAS MANAGED AND SEIZURE MEDS WAS CONTINUED.APPROPRIATE WORK UP REVEALED PATIENT WITH ACUTE CHOLECYSTITIS. PATIENT UNDERWENT OPEN CHOLECYSTECTOMY. POST PROCEDURE PATIENT REMAIN ON THE FLOOR AND REQUIRED BLOOD TRANSFUSION. PATIENT WAS PLACED ON CLEAR LIQUIDS DIET WHICH WAS ADVANCED TO TOLERATED. PATIETN WAS CLEARED BY ALL CONSULTANTS FOR DISCHARGE TO HOME. PATIENT WAS DISCHARGE TO HOME.CPOE WAS DONE AND MEDS WERE RECONCILED PLUS NEW PRESCRIPTION WAS GIVEN. Condition at Discharge: Stable Disposition: PT DISCHARGED HOME Home Medications: Home Medication Medication Instructions Recorded Type Lactobacillus Combo No.10 1 tab PO DAILY 10/21/16 History [Probiotic] Levetiracetam [Keppra] 500 mg PO BID 10/21/16 History Vit B Cmplx 3/FA/Vit C/Biotin 1 tab PO DAILY 10/21/16 History [[facility] Rx Tablet] Sitagliptin Phosphate [Januvia] 25 mg PO DAILYRT #30 tablet 10/31/16 Rx Ferric Citrate [Auryxia] 3 tab PO TID 11/09/16 History Insulin Detemir [Levemir Insulin] 8 units SUBQ DAILY vial 11/11/16 Rx Lactobacillus Rhamnosus 1 each PO DAILY 11/11/16 Rx [Culturelle] Sitagliptin [Januvia] 25 mg PO DAILY tab 11/11/16 Rx Vitamin B Complex w/Vitamin C 1 tab PO DAILY tab 11/11/16 Rx Prescriptions: Sitagliptin Phosphate [Januvia] 25 mg PO DAILYRT #30 tablet Consults and Follow-Up: LARA KING [Other] not on staff,PCP is [Primary Care Provider] - Instructions: Laparoscopic Cholecystectomy, Care After, [id number]
== END 2016-10-31 15:30 | disposition home or self-care (01) | DRG 710 ==
LOC: ER 18:33 → TELE 21:51
PROVIDERS: ADMIT Internal Medicine; ATTEND Internal Medicine
PROC: 0FT40ZZ Resection of Gallbladder, Open Approach (ICD-10-PCS; principal; 2016-10-25)
PROC: 0DNS0ZZ (ICD-10-PCS; 2016-10-25)
PROC: 0FN00ZZ Release Liver, Open Approach (ICD-10-PCS; 2016-10-25)
PROC: 30233N1 Transfusion of Nonautologous Red Blood Cells into Peripheral Vein, Percutaneous Approach (ICD-10-PCS; 2016-10-26)
PROC: 5A1D60Z (ICD-10-PCS; 2016-10-26)
DX: A41.9 Sepsis, unspecified organism (principal); N18.6 End stage renal disease; R18.8 Other ascites; Q60.4 Renal hypoplasia, bilateral; K80.00 Calculus of gallbladder with acute cholecystitis without obstruction; I12.0 Hypertensive chronic kidney disease with stage 5 chronic kidney disease or end stage renal disease; E11.22 Type 2 diabetes mellitus with diabetic chronic kidney disease; H90.3 Sensorineural hearing loss, bilateral; D63.1 Anemia in chronic kidney disease; G40.909 Epilepsy, unspecified, not intractable, without status epilepticus; M19.90 Unspecified osteoarthritis, unspecified site; K66.0 Peritoneal adhesions (postprocedural) (postinfection); R00.0 Tachycardia, unspecified; K86.1 Other chronic pancreatitis; G31.84 Mild cognitive impairment of uncertain or unknown etiology; Z94.0 Kidney transplant status; Z99.2 Dependence on renal dialysis; Z83.3 Family history of diabetes mellitus
CPT/HCPCS: 36415-UA; 71010-TC; 78226-TC; 80048-TC; 80053-TC; 80061-TC; 82948-90; 83036-90; 83605; 83690-TC; 84443-TC; 84484-TC; 85007-TC; 85025-TC; 85027-TC; 85610-TC; 85730-TC; 86592-TC; 86850-TC; 86900-TC; 86901-TC; 86922-TC; 87070-90; 87075-90; 87205-90; 88304-TC; 90799; 90937; 93005; 96372; 96374; 96375; A9537; J0696; J1170; J1815; J2060; J2250; J2270; J2405; J2543; J2704; J2710; J3480; J7030; P9016; Q9967; X6024; X6258; Z7610; Z7610-TC

== ENCOUNTER 2016-11-04 22:25 | Inpatient (IN) | payer MEDICAID ==
[2016-11-04 22:58] LABS: MEAN CELL VOLUME 87.3 fl (80-99); MEAN CORPUSCULAR HEMOGLOBIN 28.9 pg (26.0-30.0); MEAN CORPUSCULAR HGB CONC 33.1 pg (28.0-36.0); MEAN PLATELET VOLUME 6.7 fl; PLATELET COUNT 298 Th/cmm (150-400); RED CELL DISTRIBUTION WIDTH 15.2 % (11.5-20.0)
[2016-11-04 23:06] LABS: HEMATOCRIT 21.8 % (39.0-49.0); HEMOGLOBIN 7.2 gm/dL (13.2-17.3); WHITE BLOOD COUNT 8.3 Th/cmm (4.8-10.8)
[2016-11-04 23:10] LABS: INR 1.06 (0.5-1.4)
[2016-11-04 23:11] LABS: ALB/GLOB RATIO 0.9 (1.0-1.8); ANION GAP 14.1 (7.0-16.0); BILIRUBIN,TOTAL 0.6 mg/dL (0.3-1.0); BUN/CREATININE RATIO 2.1; CALCIUM SERUM 9.2 mg/dL (8.6-10.3); CARBON DIOXIDE 24.7 mEq/L (21.0-31.0); CHOLESTEROL 96 mg/dL (<200); TRIGLYCERIDES 83 mg/dL (<150)
[2016-11-04 23:25] LABS: CREATININE - SERUM 5.2 mg/dL (0.7-1.3); POTASSIUM SERUM 2.8 mEq/L (3.5-5.1)
--- NOTE | 2016-11-04 23:31 | ED Physician Chart ---
Chief Complaint/HPI - Patient Information Date Seen:: 11/04/16 Time Seen:: 22:28 Chief Complaint:: SEIZURES History of Present Illness:: THIS IS A 30 YO DIALYSIS PATIENT WHO IS A DIABETIC CAME IN HERE BY AMBULANCE WITH SEIZURE ACTIVITY. HE IS ON KEPPRA BUT RAN OUT OF MEDS. THE PATIENT HAD DIALYSIS EARLIER TODAY. HE WAS ALSO TOLD THAT HIS HCT WAS 21. THE ALSO HAS A HEARING DEFECT. Allergies:: Allergies Allergy/AdvReac Type Severity Reaction Status Date / Time No Known Allergies Allergy Verified 11/04/16 22:37 Vitals:: Vital Signs - 8 hr 11/04/16 22:25 Temp 97.9 F HR 116 RR 18 BP 117/71 O2 Sat % 98 Historian:: Patient, EMS, Family Member Review:: Nurse's Note Reviewed Review of Systems - Review of Systems General/Constitutional: No fever, No chills, No weight loss, No weakness, No diaphoresis, No edema, No loss of appetite, Other (THE PATIENT IS UNABLE TO GIVE A REVIEW OF SYSTEMS.) Skin: No skin lesions, No rash, No bruising Head: No headache, No light-headedness Eyes: No loss of vision, No pain, No diplopia ENT: No earache, No nasal drainage, No sore throat, No tinnitus Neck: No neck pain, No swelling, No thyromegaly, No stiffness, No mass noted Cardio Vascular: No chest pain, No palpitations, No PND, No orthopnea, No edema Pulmonary: No SOB, No cough, No sputum, No wheezing GI: No nausea, No vomiting, No diarrhea, No pain, No melena, No hematochezia, No constipation, No hematemesis G/U: No dysuria, No frequency, No hematuria Musculoskeletal: No bone or joint pain, No back pain, No muscle pain Endocrine: No polyuria, No polydipsia Psychiatric: No prior psych history, No depression, No anxiety, No suicidal ideation Hematopoietic: No bruising, No lymphadenopathy Allergic/Immuno: No urticaria, No angioedema Neurological: No syncope, No focal symptoms, No weakness, No paresthesia, No headache, No seizure, No dizziness, No confusion, No vertigo Past Medical History - Past Medical History Obtainable: Yes Past Medical History: DM, Seizures, Other (GOUT) Family History: None Social History: Non Smoker, No Alcohol, No Drug Use, Single, Lives With Parents Surgical History: other (RIGHT ARM SHUNT) Psychiatricy History: None Medication: Reviewed Family Medical History - Family Member Mother History Unknown: Yes Ethnicity: Non- Living Status: Still Living Hx Family Cancer: (UNKNOWN) Hx Family Coronary Artery Disease: (UNKNOWN) Hx Family Congestive Heart Failure: (UNKNOWN) Hx Family Hypertension: (UNKNOWN) Hx Family Stroke: (UNKNOWN) Hx Family Diabetes: (UNKNOWN) Hx Family Seizures: (UNKNOWN) Hx Family Dementia: (UNKNOWN) Hx Family AIDS: (UNKNOWN) Hx Family HIV: No Hx Family COPD: (UNKNOWN) Hx Family Hepatitis: (UNKNOWN) Hx Family Psychiatric Problems: (UNKNOWN) Hx Family Tuberculosis: (UNKNOWN) Physical Exam - Physical Examination General/Constitutional: Awake, Well-developed, well-nourished, Alert, No distress, GCS 15, Non-toxic appearing, Ambulatory Head: Atraumatic Eyes: Lids, conjuctiva normal, PERRL, EOMI Skin: Nl inspection, No rash, No skin lesions, No ecchymosis, Well hydrated, No lymphadenopathy ENMT: External ears, nose nl, Nasal exam nl, Lips, teeth, gums nl Neck: Nontender, Full ROM w/o pain, No JVD, No nuchal rigidity, No bruit, No mass, No stridor Respiratory: Nl effort/Exclusion, Clear to Auscultation, No Wheeze/Rhonchi/Rales Cardio Vascular: RRR, No murmur, gallop, rubs, NL S1 S2 GI: No tenderness/rebounding/guarding, No organomegaly, No hernia, Normal BS's, Nondistended, No mass/bruits, No McBurney tenderness : No CVA tenderness Extremities: No tenderness or effusion, Full ROM, normal strength in all extremities, No edema, Normal digits & nails Neuro/Psych: Alert/oriented, DTR's symmetric, Normal sensory exam, Normal motor strength, Judgement/insight normal, Mood normal, Normal gait, No focal deficits Misc: normal gait, Normal back, No paraspinal tenderness Labs/Radiology/EKG Results - Lab Results Results: Laboratory Tests 11/04/16 11/04/16 11/04/16 22:40 22:40 22:40 WBC 8.3 D RBC 2.50 L Hgb 7.2 L* Hct 21.8 L* D MCV 87.3 MCH 28.9 MCHC Differential 33.1 RDW 15.2 Plt Count 298 MPV 6.7 PT 11.0 INR 1.06 Sodium Potassium Chloride Carbon Dioxide Anion Gap BUN Creatinine Est GFR ( Amer) Est GFR (Non-Af Amer) BUN/Creatinine Ratio Glucose Calcium Total Bilirubin AST ALT Alkaline Phosphatase Troponin I B-Natriuretic Peptide Total Protein Albumin Globulin Albumin/Globulin Ratio Triglycerides 83 Cholesterol 96 LDL Cholesterol Direct 44 L HDL Cholesterol 33 11/04/16 11/04/16 11/04/16 22:40 22:40 22:40 WBC RBC Hgb Hct MCV MCH MCHC Differential RDW Plt Count MPV PT INR Sodium 131 L Potassium 2.8 L* Chloride 95 L Carbon Dioxide 24.7 Anion Gap 14.1 BUN 11 Creatinine 5.2 H* Est GFR ( Amer) 16.7 Est GFR (Non-Af Amer) 13.8 BUN/Creatinine Ratio 2.1 Glucose 227 H Calcium 9.2 Total Bilirubin 0.6 AST 52 H ALT 36 Alkaline Phosphatase 267 H Troponin I 0.01 B-Natriuretic Peptide 103.0 H Total Protein 6.8 Albumin 3.2 L Globulin 3.6 Albumin/Globulin Ratio 0.9 L Triglycerides Cholesterol LDL Cholesterol Direct HDL Cholesterol - Radiology Results Results: ct scan = nad chest x-ray = nad - EKG Interpretations EKG Time:: 23:53 Rate & Rhythm: MBVH=260 SINUS TACH [place]: RIGHT AXIS Assessment - Assessment General Assessment: THE SEIZURES ARE PROBABLY BREAKTHROUGH BECAUSE THE KEPPRA WAS LOW AND AFTER DIALYSIS WAS EVEN LOWER. THE LOW HCT IS PROBABLY NOT HELPING EITHER. A DOSE OF KEPPERA WAS GIVEN AFTER THE ATIVAN DOSE TO STOP THE REPEAT SEIZURE IN THE ER. ED Septic Shock - . Is Septic Shock (SBP<90, OR Lactate>4 mmol\L) present?: No - <6hrs of presentation: Vital Signs: Vital Signs - 8 hr 11/04/16 22:25 Temp 97.9 F HR 116 RR 18 BP 117/71 O2 Sat % 98 Reassessment (Disposition) - Reassessment Reassessment Condition:: Improved - Diagnosis Diagnosis:: SEVERE ANEMIA SEIZURE DISORDER ESRD - Aftercare/Follow up Instructions Aftercare/Follow-Up Instructions:: Counseled pt & family regarding lab results/ diagnosis & need follow up - Patient Disposition Discharge/Transfer:: Acute Care w/in this hosp Admitted to:: Med/Surg Admitting Medical Physician:: Feliciano Davis Condition at Disposition:: Improved
[2016-11-04 23:36] LABS: EOSINOPHIL 3 % (0-5); NEUTROPHILS 59 % (40-80); PLATELET ESTIMATE ADEQUATE (NORMAL); PLATELET MORPHOLOGY NORMAL (NORMAL); TOTAL CELLS COUNTED 100
[2016-11-04] MEDS ORDERED: Levetiracetam 500mg/100mL 500 MG/100 ML BAG IV ONE (23:49)
[2016-11-04] MEDS: Levetiracetam 500mg/100mL 500 MG/100 ML BAG IV SCH (23:51)
[2016-11-04] MEDS ORDERED: KCL 20mEq/100mL Premix 20 MEQ/100 ML PIGGYBACK IV ONE (23:52)
[2016-11-05] MEDS ORDERED: KCL 20mEq/100mL Premix 20 MEQ/100 ML PIGGYBACK IV ONE (00:37)
[2016-11-05] MEDS ORDERED: Potassium Chloride Elixir 20 mEq /15 mL UDC PO ONE (06:13)
[2016-11-05] MEDS ORDERED: Potassium Chloride Elixir 20 mEq /15 mL UDC ONE (06:26)
--- NOTE | 2016-11-05 10:01 | Diagnostic Imaging Report ---
Head CT without intravenous contrast Indication: Seizures Comparison: None Technique: Axial images were obtained from the vertex to the skull base without IV contrast. Coronal reconstructions were made. Total DLP: 553, CTDI32.9 FINDINGS: Images of the brain obtained without contrast demonstrate no acute hemorrhage. No mass lesions identified. The ventricles and basal cisterns are patent. The dalton-white matter differentiation is preserved. There is no mass effect or midline shift. No skull fractures identified. No soft tissue swelling. The paranasal sinuses are clear. Decreased pneumatization of bilateral mastoid air cells are noted. IMPRESSION: No acute intracranial abnormality.
--- NOTE | 2016-11-05 10:19 | Admit Criteria Form ---
Admit Criteria Forms - Admit Criteria Diagnosis: SEIZURE Clinical Indications for Admission to Inpatient Care (Place 'X' for any and all applicable criteria): Admission is indicated for seizure and ANY ONE of the following(1)(2)(3)(4)(5): [X]I. Inpatient admission required rather than observation care (Also use Seizure: Observation Care Criteria as appropriate) because of ANY ONE of the following: [ ]a) Altered mental status that is severe or persistent [ ]b) New focal neurologic deficit that is severe or persistent [ ]c) Metabolic disorder (eg, hypoglycemia, hyponatremia) that is severe or persistent [ ]d) Recurrent seizure [ ]e) Outpatient antiseizure regimen cannot be established (eg , patient cannot tolerate medication, initiation requires inpatient care) [X]f) Need for ongoing intravenous infusion of antiseizure medication [ ]g) Cardiac arrhythmias of immediate concern [ ]h) Cerebral bleeding, hydrocephalus, or vasospasm monitoring (14) [ ]i) Increased intracranial pressure or cerebral edema monitoring (15) [ ]j) Other treatment or monitoring requiring inpatient admission [ ]II. Status epilepticus [A] or repetitive seizures not controlled with emergent treatment (6)(8) [ ]III. Brain disorder (eg, tumor, edema, and hydrocephalus) that requiring monitoring or intervention available only at inpatient level of care. [ ]IV. Brain insult (eg, severe trauma, stroke, drug toxicity, or withdrawal) that requires monitoring or intervention available only at inpatient level of care (10)(11) Extended stay beyond goal length of stay may be needed for (22) [ ]a) Complications of status epilepticus [ ]b) Refractory status epilepticus [ ]c) Etiology-specific therapy for conditions such as [employer] infection, head injury,eclampsia, severe metabolic abnormalities, and brain tumor [ ]d) Residual neurologic damage, [ ]e) Initiation of significant change to anticonvulsant treatment [ ]f) Older patients (65 years or older) [ ]g) Patient requiring intubation (eg, to protect airway) The original [facility] by [employer] content created by [facility] [employer] has been revised. The portions of the content which have been revised are identified through the use of italic text or in bold, and [facility] [employer] has neither reviewed nor approved the modified material. All other unmodified content is copyright [facility] [employer]. Please see references footnoted in the original [facility] edition 2016
[2016-11-05] MEDS: Levetiracetam 500mg/100mL 500 MG/100 ML BAG IV SCH (11:09)
--- NOTE | 2016-11-05 11:17 | Diagnostic Imaging Report ---
CHEST X-RAY: AP view INDICATION: pain COMPARISON: 10/21/2016 FINDINGS: The patient is rotated. Mild chronic lung changes are noted. There is no focal consolidation or pleural effusions borderline cardiomegaly is noted. Postsurgical changes of left axillary region and left upper extremity are noted. Left axillary vascular stent is noted. Additional postsurgical changes of the right upper extremity is also noted. Degenerative changes of the spine are noted. Possible changes of the right upper quadrant are also noted. IMPRESSION: No focal consolidation identified. Postsurgical changes.
[2016-11-05] MEDS ORDERED: Pneumococcal Vaccine 0.5 mL Vial IM ONE (11:49)
[2016-11-05] MEDS ORDERED: Potassium Chloride Elixir 20 mEq /15 mL UDC GT ONE (12:44)
[2016-11-05 15:47] LABS: HEMATOCRIT 30.7 % (39.0-49.0); HEMOGLOBIN 10.5 gm/dL (13.2-17.3)
--- NOTE | 2016-11-05 15:52 | Consultation ---
Consult Note - Consult Note Service Date: 11/05/16 Referring Physician: Feliciano Davis Consult Note: PHYSICIAN Consultation Note: Date of Admission: 11/05/16 Purpose of Consultation: ESRD Chief Complaint:ANEMIA History of Present Illness: Patient YOVANI CAPELLAN was admitted to [facility] with ANEMIA;HYPOKALEMIA;SEIZURE. Past Medical History:ESRD ANEMIA Allergies Allergy/AdvReac Type Severity Reaction Status Date / Time No Known Allergies Allergy Verified 11/04/16 22:37 Vital Signs Temp 98.8 F 11/05/16 11:15 Pulse 95 11/05/16 11:15 Resp 17 11/05/16 11:15 BP 101/59 11/05/16 11:15 Pulse Ox 97 11/05/16 11:15 Laboratory Results - last 24 hr 11/05/16 11/05/16 08:30 15:34 Hgb 10.5 L D Hct 30.7 L D Blood Type AB POSITIVE Antibody Screen NEGATIVE Crossmatch See Detail Home Medication Medication Instructions Recorded Type Folic Acid/Vit Bcomp,C [Lavonne-Yazan] 1 tab PO DAILY 02/20/16 History Sevelamer [Renagel] 800 mg PO TIDWM 02/20/16 History Ferric Citrate [Auryxia] 210 mg PO TID 10/21/16 History Lactobacillus Combo No.10 1 tab PO DAILY 10/21/16 History [Probiotic] Levetiracetam [Keppra] 500 mg PO BID 10/21/16 History Vit B Cmplx 3/FA/Vit C/Biotin 1 tab PO DAILY 10/21/16 History [Lavonne-Yazan Rx Tablet] Sitagliptin Phosphate [Januvia] 25 mg PO DAILYRT #30 tablet 10/31/16 Rx Current Medications Generic Name Dose Route Start Last Admin Trade Name Freq PRN Reason Stop Dose Admin Acetaminophen 650 mg 11/05/16 10:16 Tylenol PO 01/04/17 10:15 Q4H PRN Pain Or Fever >100 Levetiracetam 500 mg in 100 mls @ 400 mls/hr 11/04/16 23:30 11/05/16 11:09 Keppra Pb IV 01/03/17 23:29 400 mls/hr Q12H RADHA Administration Review of Systems: A 12 point ROS was reviewed with the pertinent positive and negatives noted in the HPI. Social History Smoking Status Unknown if ever smoked Family Medical History Family Medical History Start: 11/05/16 07: 39 Freq: ONCE Status: Active Document 11/05/16 11:15 ANTOLINANABELLA (Rec: 11/05/16 11:48 JOHNNY [id number] ) Family Medical History Mother History Unknown Yes Physical Exam: General: Alert and Oriented x3, No Acute Distress HEENT: EOMI Bilaterally, PERRLA Bilaterally, Head is normocephalic, atraumatic on inspection. Cardio: +S1/S2 Auscultated, RRR, no murmurs/rubs/gallops noted Respiratory: Clear to Auscultate Bilaterally Abdominal: Soft, Nondistended, Nontender to palpation x 4 quadrants Genital/Urinary: Extremities: No Edema noted in the lower extremities Neurological: Cranial Nerves II-XII intact bilaterally, Gait Steady, No Focal Deficits noted. Assessment/Plan: HD TODAY AND TRANSFUSE Signed, Daniel Khan M.D. [id number]
== END 2016-11-05 17:45 | disposition home or self-care (01) | DRG 53 ==
LOC: ER 22:25 → MSI 11-05 06:50
PROVIDERS: ADMIT Internal Medicine; ATTEND Internal Medicine
PROC: 30233N1 Transfusion of Nonautologous Red Blood Cells into Peripheral Vein, Percutaneous Approach (ICD-10-PCS; principal; 2016-11-05)
PROC: 3E0234Z Introduction of Serum, Toxoid and Vaccine into Muscle, Percutaneous Approach (ICD-10-PCS; 2016-11-05)
PROC: 5A1D00Z (ICD-10-PCS; 2016-11-05)
DX: G40.909 Epilepsy, unspecified, not intractable, without status epilepticus (principal); N18.6 End stage renal disease; E11.22 Type 2 diabetes mellitus with diabetic chronic kidney disease; M10.9 Gout, unspecified; D64.9 Anemia, unspecified; E87.6 Hypokalemia; Z79.899 Other long term (current) drug therapy; Z23 Encounter for immunization; Z99.2 Dependence on renal dialysis
CPT/HCPCS: 36415-UA; 70450-TC; 71010-TC; 80053-TC; 80061-TC; 80299-90; 83036-90; 83880-TC; 84132-TC; 84443-TC; 84484-TC; 85007-TC; 85014-TC; 85018-TC; 85027-TC; 85610-TC; 86850-TC; 86900-TC; 86901-TC; 86922-TC; 90937; 93005; 96374; J2060; J3480; P9016; Z7610

== ENCOUNTER 2016-11-09 16:06 | Inpatient (IN) | payer MEDICAID ==
--- NOTE | 2016-11-09 16:27 | ED Physician Chart ---
Chief Complaint/HPI - Patient Information Date Seen:: 11/09/16 Time Seen:: 16:10 Chief Complaint:: abd. pain at site of recent ronal History of Present Illness:: Dialysis pt. had dialysis today and now c/o pain at site of recent cholecystectomy (October 25, 2016). Pt. is diabetic and renal failure. Has seizure disorder and is on Keppra. Allergies:: Allergies Allergy/AdvReac Type Severity Reaction Status Date / Time No Known Allergies Allergy Verified 11/04/16 22:37 Historian:: Patient Review of Systems - Review of Systems General/Constitutional: No fever Head: No headache ENT: No earache, No sore throat Neck: No neck pain Cardio Vascular: No chest pain, No palpitations Pulmonary: No SOB GI: No vomiting, Pain G/U: No dysuria Psychiatric: No prior psych history Neurological: No syncope, No focal symptoms Past Medical History - Past Medical History Past Medical History: DM, ESRD, Seizures Family History: None Social History: Non Smoker, No Alcohol Surgical History: Cholecystectomy Psychiatricy History: None Medication: Reviewed (sevelamer, Keppra, lactobacilus, vits, Januvia) Family Medical History - Family Member Mother History Unknown: Yes Ethnicity: Non- Living Status: Still Living Hx Family Cancer: (UNKNOWN) Hx Family Coronary Artery Disease: (UNKNOWN) Hx Family Congestive Heart Failure: (UNKNOWN) Hx Family Hypertension: (UNKNOWN) Hx Family Stroke: (UNKNOWN) Hx Family Diabetes: (UNKNOWN) Hx Family Seizures: (UNKNOWN) Hx Family Dementia: (UNKNOWN) Hx Family AIDS: (UNKNOWN) Hx Family HIV: No Hx Family COPD: (UNKNOWN) Hx Family Hepatitis: (UNKNOWN) Hx Family Psychiatric Problems: (UNKNOWN) Hx Family Tuberculosis: (UNKNOWN) Physical Exam - Physical Examination General/Constitutional: Awake, Well-developed, well-nourished, Alert, GCS 15, Non-toxic appearing Head: Atraumatic Eyes: Lids, conjuctiva normal, PERRL, EOMI Skin: Nl inspection Neck: Full ROM w/o pain Respiratory: Nl effort/Exclusion, Clear to Auscultation, No Wheeze/Rhonchi/Rales Cardio Vascular: RRR, No murmur, gallop, rubs GI: Nondistended, No mass/bruits Other GI comments:: Some guarding. BS may be decreased. Extremities: normal strength in all extremities Neuro/Psych: Alert/oriented, Normal motor strength, Judgement/insight normal, No focal deficits Labs/Radiology/EKG Results - Lab Results Results: EKG: NSR 76 with nl. axis and no acute change. Some delay R wave progression. CBC: WBC 6/7, H/H 9.7/28.8 CMP: Glucose 266. Bili 0.9, SGOT 163, SGPT79, Alk Phos. 307 CT showed per rad.: "s/p dejon, edema in GB area with fluid. Large degree R flank abd wall? Hematoma? Abscess can not be excluded." Case was discussed with Dr. No, the surgeon. He asked me to admit to [facility] to Dr. Davis. Dr. No will consult. Dr. Davis has been called. ED Septic Shock - . Is Septic Shock (SBP<90, OR Lactate>4 mmol\\L) present?: No Reassessment (Disposition) - Reassessment Reassessment Condition:: Unchanged - Patient Disposition Discharge/Transfer:: Acute Care w/in this hosp Accepting Physician:: Called Dr. Davis, per Dr. No. Dr. No will see pt.; he was the surgeon Time Called:: 1750 Time Responded:: 18:07 Discussion with Medical Provider:: Dr. Davis accepts patient. He will admit to [facility]. He understands the case was discussed with Dr. No, surgeon Admitted to:: Med/Surg Condition at Disposition:: Unchanged ED Discharge Plan - Patient Disposition Admit/Discharge/Transfer: Acute Care w/in this hosp Condition at Disposition: Guarded
[2016-11-09 17:20] LABS: % BASOPHILS 0.1 % (0.0-2.0); % EOSINOPHILS 3.4 % (0.0-5.0); % LYMPHOCYTES 30.4 % (20.0-50.0); % MONOCYTES 7.8 % (2.0-10.0); % NEUTROPHILS 58.3 % (40.0-80.0); HEMATOCRIT 28.8 % (39.0-49.0); HEMOGLOBIN 9.7 gm/dL (13.2-17.3); MEAN CELL VOLUME 87.6 fl (80-99); MEAN CORPUSCULAR HEMOGLOBIN 29.5 pg (26.0-30.0); MEAN CORPUSCULAR HGB CONC 33.6 pg (28.0-36.0); MEAN PLATELET VOLUME 6.7 fl; RED BLOOD COUNT 3.29 Mil/cmm (4.30-5.70); WHITE BLOOD COUNT 6.7 Th/cmm (4.8-10.8)
[2016-11-09 17:24] LABS: PLATELET COUNT 191 Th/cmm (150-400)
[2016-11-09 17:37] LABS: ALB/GLOB RATIO 0.9 (1.0-1.8); ANION GAP 12.4 (7.0-16.0); BILIRUBIN,TOTAL 0.6 mg/dL (0.3-1.0); BUN/CREATININE RATIO 4.5; CALCIUM SERUM 9.1 mg/dL (8.6-10.3); CARBON DIOXIDE 28.1 mEq/L (21.0-31.0); POTASSIUM SERUM 3.5 mEq/L (3.5-5.1)
[2016-11-09 17:40] LABS: CREATININE - SERUM 5.6 mg/dL (0.7-1.3)
[2016-11-09] MEDS ORDERED: HYDROmorphone 1 mg/mL 1mL Syr IVP STA (17:55)
[2016-11-09 18:20] LABS: INR 0.99 (0.5-1.4); PROTHROMBIN TIME (TEST) 10.3 SECONDS (9.5-11.5)
[2016-11-09 18:36] LABS: URINE BACTERIA OCCASIONAL /hpf (NONE SEEN); URINE BILIRUBIN NEGATIVE (NEGATIVE); URINE BLOOD TRACE (NEGATIVE); URINE COLOR YELLOW; URINE EPITHELIAL CELLS RARE /lpf (FEW); URINE GLUCOSE (UA) 100 mg/dL (NEGATIVE); URINE KETONE NEGATIVE (NEGATIVE); URINE PROTEIN 100 mg/dL (NEGATIVE); URINE RBC 0-2 /hpf (0-5); URINE UROBILINOGEN 0.2 E.U./dL (0.2 - 1.0)
[2016-11-09] MEDS: D5-0.45NS 1,000 ML IV SCH (21:56)
[2016-11-09] MEDS ORDERED: Piperacillin Sodium/Tazobact 2.25 gm Vial IV ONE (22:53)
[2016-11-10] MEDS: HYDROmorphone 2 mg/mL 1mL Vial IVP PRN ×3 (06:06→20:52)
--- NOTE | 2016-11-10 08:51 | General Progress Note ---
Subjective - Review of Systems Service Date: 11/10/16 Events since last encounter: had open cholecystectomy 10/25/16 labs CBC normal, LFT slightly elevated CT scan noted PE hard "lump" at incision likely hematoma Plan: NSS compress Objective - Results Result Diagrams: 11/09/16 17:12 11/09/16 17:12 Recent Labs: Laboratory Last Values WBC 6.7 Th/cmm (4.8-10.8) 11/09/16 17:12 RBC 3.29 Mil/cmm (4.30-5.70) L 11/09/16 17:12 Hgb 9.7 gm/dL (13.2-17.3) L 11/09/16 17:12 Hct 28.8 % (39.0-49.0) L 11/09/16 17:12 MCV 87.6 fl (80-99) 11/09/16 17:12 MCH 29.5 pg (26.0-30.0) 11/09/16 17:12 MCHC Differential 33.6 pg (28.0-36.0) 11/09/16 17:12 RDW 16.0 % (11.5-20.0) 11/09/16 17:12 Plt Count 191 Th/cmm (150-400) D 11/09/16 17:12 MPV 6.7 fl 11/09/16 17:12 Neutrophils % 58.3 % (40.0-80.0) 11/09/16 17:12 Lymphocytes % 30.4 % (20.0-50.0) 11/09/16 17:12 Monocytes % 7.8 % (2.0-10.0) 11/09/16 17:12 Eosinophils % 3.4 % (0.0-5.0) 11/09/16 17:12 Basophils % 0.1 % (0.0-2.0) 11/09/16 17:12 PT 10.3 SECONDS (9.5-11.5) 11/09/16 17:12 INR 0.99 (0.5-1.4) 11/09/16 17:12 PTT (Actin FS) 27.4 SECONDS (26.0-38.0) 11/09/16 17:12 Sodium 134 mEq/L (136-145) L 11/09/16 17:12 Potassium 3.5 mEq/L (3.5-5.1) 11/09/16 17:12 Chloride 97 mEq/L (98-107) L 11/09/16 17:12 Carbon Dioxide 28.1 mEq/L (21.0-31.0) 11/09/16 17:12 Anion Gap 12.4 (7.0-16.0) 11/09/16 17:12 BUN 25 mg/dL (7-25) 11/09/16 17:12 Creatinine 5.6 mg/dL (0.7-1.3) H* 11/09/16 17:12 Est GFR ( Amer) 15.4 ml/min (>90) 11/09/16 17:12 Est GFR (Non-Af Amer) 12.7 ml/min 11/09/16 17:12 BUN/Creatinine Ratio 4.5 11/09/16 17:12 Glucose 266 mg/dL (70-105) H 11/09/16 17:12 Calcium 9.1 mg/dL (8.6-10.3) 11/09/16 17:12 Total Bilirubin 0.6 mg/dL (0.3-1.0) 11/09/16 17:12 AST 163 U/L (13-39) H 11/09/16 17:12 ALT 79 U/L (7-52) H 11/09/16 17:12 Alkaline Phosphatase 307 U/L (34-104) H 11/09/16 17:12 Total Protein 6.8 gm/dL (6.0-8.3) 11/09/16 17:12 Albumin 3.3 gm/dL (4.2-5.5) L 11/09/16 17:12 Globulin 3.5 gm/dL 11/09/16 17:12 Albumin/Globulin Ratio 0.9 (1.0-1.8) L 11/09/16 17:12 Amylase 162 U/L (29-103) H 11/09/16 17:12 Lipase 79 U/L (11-82) 11/09/16 17:12 Urine Source CLEAN C 11/09/16 17:05 Urine Color YELLOW 11/09/16 17:05 Urine Clarity CLEAR (CLEAR) 11/09/16 17:05 Urine pH 7.0 11/09/16 17:05 Ur Specific [place] 1.015 (1.005-1.030) 11/09/16 17:05 Urine Protein 100 mg/dL (NEGATIVE) H 11/09/16 17:05 Urine Glucose (UA) 100 mg/dL (NEGATIVE) H 11/09/16 17:05 Urine Ketones NEGATIVE mg/dL (NEGATIVE) 11/09/16 17:05 Urine Blood TRACE (NEGATIVE) 11/09/16 17:05 Urine Nitrate NEGATIVE (NEGATIVE) 11/09/16 17:05 Urine Bilirubin NEGATIVE (NEGATIVE) 11/09/16 17:05 Urine Urobilinogen 0.2 E.U./dL (0.2 - 1.0) 11/09/16 17:05 Ur Leukocyte Esterase NEGATIVE (NEGATIVE) 11/09/16 17:05 Urine RBC 0-2 /hpf (0-5) H 11/09/16 17:05 Urine WBC 2-5 /hpf (0-5) H 11/09/16 17:05 Ur Epithelial Cells RARE /lpf (FEW) 11/09/16 17:05 Urine Bacteria OCCASIONAL /hpf (NONE SEEN) 11/09/16 17:05 Blood Type AB POSITIVE 11/09/16 17:12 Antibody Screen NEGATIVE 11/09/16 17:12 - Physical Exam Vitals and I&O: Vital Signs Temp 98.3 F 11/10/16 08:19 Pulse 76 11/10/16 08:19 Resp 17 11/10/16 08:19 BP 98/55 11/10/16 08:19 Pulse Ox 98 11/10/16 08:19 Intake & Output 11/09/16 11/10/16 11/10/16 18:59 06:59 18:59 Intake Total 50 Output Total 1 Balance 50 -1 Weight (lbs) 46.351 kg 46.266 kg Intake: Intake, IV Amount 50 Piperacillin Sodium/ 50 Tazobact 2.25 gm In Sodium Chloride 0.9% 50 ml @ 100 mls/hr IV Q8HR [facility] Rx#:[id number] Output: Stool 1 Other: # Voids 1 0 Active Medications: Current Medications Hydromorphone HCl (Dilaudid) 2 mg IVP Q4HR PRN PRN Reason: Pain (Severe) Stop: 01/08/17 21:24 Last Admin: 11/10/16 06:06 Dose: 2 mg Dextrose/Sodium Chloride (D5-0.45ns) 1,000 mls @ 60 mls/hr IV .[id number] [facility] Stop: 01/08/17 21:23 Last Admin: 11/09/16 21:56 Dose: 60 mls/hr Piperacillin Sod/Tazobactam (Sod 2.25 gm/ Sodium Chloride) 50 mls @ 100 mls/hr IV Q8HR [facility] Stop: 01/08/17 21:59 Last Admin: 11/10/16 06:18 Dose: 100 mls/hr - Procedures Procedures: Procedures Procedure Code Date ABDOMEN SURGERY PROCEDURE [id number] 10/21/16 EGD BIOPSY SINGLE/MULTIPLE 01045 02/20/16 EXCISION OF DUODENUM, ENDO, DIAGN [id number] 02/20/16 EXCISION OF STOMACH, PYLORUS, ENDO, DIAGN [id number] 02/20/16 INTRODUCTION OF SERUM/TOX/VACCINE INTO MUSCLE, PERC APPROACH [id number] 11/05/16 PERFORMANCE OF URINARY FILTRATION, MULTIPLE [id number] 10/21/16 PERFORMANCE OF URINARY FILTRATION, SINGLE [id number] 11/05/16 RELEASE GREATER OMENTUM, OPEN APPROACH [id number] 10/21/16 RELEASE LIVER, OPEN APPROACH [id number] 10/21/16 REMOVAL OF GALLBLADDER [id number] 10/21/16 RESECTION OF GALLBLADDER, OPEN APPROACH [id number] 10/21/16 TRANSFUSE NONAUT RED BLOOD CELLS IN PERIPH VEIN, PERC 41830C5 11/05/16 Assessment/Plan - Problem List Patient Problems: All Active Problems WEAKNESS WITH RIGHT LOWER QUAD PAIN (Acute) WEAKNESS WITH RIGHT LOWER QUAD PAIN (Acute) NOT FEELING GOOD WITH NAUSEA (Acute) The administrative codes within the [employer] content you are accessing may have as of 02/06/2016. Please contact your IT Dept/Help Desk and request the latest Regulatory release be installed. IT Dept/Help Desk- Please refer to our FAQ page ([email or web address]) or contact [employer] Customer Support at [email or web address] (Acute ~02/20/16)
--- NOTE | 2016-11-10 08:54 | Diagnostic Imaging Report ---
CT abdomen and pelvis without intravenous contrast Indication: Abdominal pain, status post cholecystectomy Comparison: CT abdomen and pelvis performed on 10/21/2016, Technique: Axial images were obtained from the lung bases to the bilateral proximal femurs without IV contrast. Coronal reconstructions were made. total DLP: 285, CTDI6 FINDINGS: Hypoventilatory changes of the lung bases are noted. Assessment of the solid organs is limited due to lack of IV contrast. The patient is status post cholecystectomy. Edema and large area of high density is seen in the region of the gallbladder fossa extending inferiorly with few pockets of gas. Hemorrhagic components in this region cannot be excluded. Small amount of fluid is also seen in this region. This appears to be separate from transverse colon loops. This area measures 7.4 x 6.3 cm. No focal hepatic lesions identified. Trace fluid is seen surrounding the liver. There is edema with small amount of fluid and high density along the right anterior abdominal wall region. No focal splenic lesions. Severe pancreatic gland atrophy seen with severe pancreatic gland calcifications. No focal adrenal lesions. Severe bilateral renal atrophy seen with renal cysts and bilateral renal calcifications. A right lower quadrant renal transplant is seen with large stones the largest measuring 1.2 cm. Additional punctate right renal stones are noted. No evidence of hydronephrosis. Postsurgical changes of the right hemipelvis are noted. Distended urinary bladder is noted. There is copious amount of stool throughout the colon. Areas of mild bowel wall thickening and edema are seen along the ascending colon. Appendix is not well-visualized. Small fluid density possible collection is seen along the right buttock region measuring 4.1 x 0.8cm. Degenerative changes of the spine are seen with diffuse abnormal density of the bones which may be due to chronic renal failure. Multilevel subchondral cystic changes are noted. Unchanged 2.4 cm sclerotic focus of the left iliac bone is noted. IMPRESSION: Status post recent cholecystectomy. There is fluid, edema and high density with possible small extraluminal pocket of gas seen over region of the gallbladder fossa. This area measures 7.4 x 6.3 cm. This may represent a postoperative fluid collection and may be sequela of a bile leak. Hemorrhagic components, less likely sequela of vascular injury, cannot be excluded. Please correlate with clinical findings. Consider further assessment with nuclear medicine HIDA scan for bile leak. Mild enlargement and edema with small amount of fluid seen along the right anterior abdominal wall anterior to the liver. Mild bowel wall edema and thickening of the ascending colon with minimal surrounding free fluid. Please correlate for possible inflammatory process. Right lower quadrant renal transplant containing multiple stones the largest measuring 1.1 cm. No evidence of hydronephrosis of the transplanted right kidney. Small fluid density collection along the right medial posterior buttock region measuring 4.1 x 0.8 cm. Diffuse abnormal density of the bones which may be sequela of chronic renal failure. Please refer to above for details.
--- NOTE | 2016-11-10 09:22 | History and Physical ---
History of Present Illness - HPI Chief Complaint: Abdominal pain for 3 days. HPI: 30-year-old [place] Islander male recently underwent open cholecystectomy by Dr. pittman. Patient was discharge home with outpatient follow-up by primary Ivy. patient is a known case of end-stage kidney disease on dialysis 3 times a week which she receives from Dr. Theodore's dialysis unit. Patient presented to emergency room for evaluation of RUQ abdominal pain for 3 days duration. After a meal followed by emergency room [place] patient was admitted to the hospital due to abnormal CT abdominal and pelvis. Patient is still complaining of abdominal pain which is localized without any nausea, vomiting, diarrhea, headache, fever, chills, seizure, syncope. Patient' s pain currently adequately controlled with IV Dilaudid. 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 - Past Surgical History Past Surgical History: Cholecystectomy, Other (Status post failed renal transplant) Family Medical History - Family Member Mother History Unknown: Yes Ethnicity: Non- Living Status: Still Living Hx Family Cancer: No Hx Family Coronary Artery Disease: No Hx Family Congestive Heart Failure: No Hx Family Hypertension: No Hx Family Stroke: No Hx Family Diabetes: No Hx Family Seizures: No Hx Family Dementia: No Hx Family AIDS: No Hx Family HIV: No Hx Family COPD: No Hx Family Hepatitis: No Hx Family Psychiatric Problems: No Hx Family Tuberculosis: No Other Medical History: Unknown. Social History Smoke: No (Nonsmoker) Occupation: disabled Alcohol: None Drugs: None Lives: With Family Domestic Violence: Negative - Medications Home Medications: Home Medication Medication Instructions Recorded Type Lactobacillus Combo No.10 1 tab PO DAILY 10/21/16 History [Probiotic] Levetiracetam [Keppra] 500 mg PO BID 10/21/16 History Vit B Cmplx 3/FA/Vit C/Biotin 1 tab PO DAILY 10/21/16 History [[facility] Rx Tablet] Sitagliptin Phosphate [Januvia] 25 mg PO DAILYRT #30 tablet 10/31/16 Rx Ferric Citrate [Auryxia] 3 tab PO TID 11/09/16 History - Allergies Allergies/Adverse Reactions: Allergies Allergy/AdvReac Type Severity Reaction Status Date / Time No Known Allergies Allergy Verified 11/04/16 22:37 Review of Systems - Review of Systems Constitutional: Report: Other (no fever no chills) Eyes: Report: Other (no decreased vision) ENT: Report: Other (no throat pain no dysphagia) Respiratory: Report: Wheezing (no wheezing) Cardiovascular: Report: Other (no chest pain shortness of breath palpitation dizziness) Gastrointestinal: Report: Other (no nausea, vomiting, diarrhea) Genitourinary: Report: Other (no dysuria or mature area) Skin: Report: Other (no rash) Neurological: Report: Other (no seasonal syncope) Physical Exam - Physical Exam HEENT: Report: Ears Nose Throat Within Normal Limits, Pale Conjunctiva Neck: Report: WNL Cardiovascular Systems: Report: +s1/s2 noted Respiratory: Report: Clear to Auscultation of lung noonan Abdomen: Report: Tender to palpation, Guarding, Bowel Sounds are within normal limits, Mass palpated Back: Report: Inspection of back is within normal limits. Extremities: Report: Non-tender to palpation., Patient had full range of motion , No pedal edema was noted on inspection Skin: Report: Color of skin is within normal limits Neuro/Psych: Report: A+Ox3, CN II-XII intact, No motor deficit, No sensory deficit Other Systems Exam: Hemodialysis access reported on left upper extremity. - Lab Results All Lab Results last 24 hours: Laboratory Last Values WBC 6.7 Th/cmm (4.8-10.8) 11/09/16 17:12 RBC 3.29 Mil/cmm (4.30-5.70) L 11/09/16 17:12 Hgb 9.7 gm/dL (13.2-17.3) L 11/09/16 17:12 Hct 28.8 % (39.0-49.0) L 11/09/16 17:12 MCV 87.6 fl (80-99) 11/09/16 17:12 MCH 29.5 pg (26.0-30.0) 11/09/16 17:12 MCHC Differential 33.6 pg (28.0-36.0) 11/09/16 17:12 RDW 16.0 % (11.5-20.0) 11/09/16 17:12 Plt Count 191 Th/cmm (150-400) D 11/09/16 17:12 MPV 6.7 fl 11/09/16 17:12 Neutrophils % 58.3 % (40.0-80.0) 11/09/16 17: Lymphocytes % 30.4 % (20.0-50.0) 11/09/16 17: Monocytes % 7.8 % (2.0-10.0) 11/09/16 17: Eosinophils % 3.4 % (0.0-5.0) 11/09/16 17: Basophils % 0.1 % (0.0-2.0) 11/09/16 17: PT 10.3 SECONDS (9.5-11.5) 11/09/16 17:12 INR 0.99 (0.5-1.4) 11/09/16 17:12 PTT (Actin FS) 27.4 SECONDS (26.0-38.0) 11/09/16 17:12 Sodium 134 mEq/L (136-145) L 11/09/16 17:12 Potassium 3.5 mEq/L (3.5-5.1) 11/09/16 17: Chloride 97 mEq/L (98-107) L 11/09/16 17:12 Carbon Dioxide 28.1 mEq/L (21.0-31.0) 11/09/16 17:12 Anion Gap 12.4 (7.0-16.0) 11/09/16 17:12 BUN 25 mg/dL (7-25) 11/09/16 17: Creatinine 5.6 mg/dL (0.7-1.3) H* 11/09/16 17:12 Est GFR ( Amer) 15.4 ml/min (>90) 11/09/16 17: Est GFR (Non-Af Amer) 12.7 ml/min 11/09/16 17:12 BUN/Creatinine Ratio 4.5 11/09/16 17:12 Glucose 266 mg/dL (70-105) H 11/09/16 17:12 Calcium 9.1 mg/dL (8.6-10.3) 11/09/16 17:12 Total Bilirubin 0.6 mg/dL (0.3-1.0) 11/09/16 17:12 AST 163 U/L (13-39) H 11/09/16 17:12 ALT 79 U/L (7-52) H 11/09/16 17:12 Alkaline Phosphatase 307 U/L (34-104) H 11/09/16 17:12 Total Protein 6.8 gm/dL (6.0-8.3) 11/09/16 17:12 Albumin 3.3 gm/dL (4.2-5.5) L 11/09/16 17:12 Globulin 3.5 gm/dL 11/09/16 17:12 Albumin/Globulin Ratio 0.9 (1.0-1.8) L 11/09/16 17:12 Amylase 162 U/L (29-103) H 11/09/16 17:12 Lipase 79 U/L (11-82) 11/09/16 17:12 Urine Source CLEAN C 11/09/16 17:05 Urine Color YELLOW 11/09/16 17:05 Urine Clarity CLEAR (CLEAR) 11/09/16 17:05 Urine pH 7.0 11/09/16 17:05 Ur Specific [place] 1.015 (1.005-1.030) 11/09/16 17:05 Urine Protein 100 mg/dL (NEGATIVE) H 11/09/16 17:05 Urine Glucose (UA) 100 mg/dL (NEGATIVE) H 11/09/16 17:05 Urine Ketones NEGATIVE mg/dL (NEGATIVE) 11/09/16 17:05 Urine Blood TRACE (NEGATIVE) 11/09/16 17:05 Urine Nitrate NEGATIVE (NEGATIVE) 11/09/16 17:05 Urine Bilirubin NEGATIVE (NEGATIVE) 11/09/16 17:05 Urine Urobilinogen 0.2 E.U./dL (0.2 - 1.0) 11/09/16 17:05 Ur Leukocyte Esterase NEGATIVE (NEGATIVE) 11/09/16 17:05 Urine RBC 0-2 /hpf (0-5) H 11/09/16 17:05 Urine WBC 2-5 /hpf (0-5) H 11/09/16 17:05 Ur Epithelial Cells RARE /lpf (FEW) 11/09/16 17:05 Urine Bacteria OCCASIONAL /hpf (NONE SEEN) 11/09/16 17:05 Blood Type AB POSITIVE 11/09/16 17:12 Antibody Screen NEGATIVE 11/09/16 17:12 - Assessment Assessment: Current Active Problems Problem Status Onset WEAKNESS WITH RIGHT LOWER QUAD PAIN Acute WEAKNESS WITH RIGHT LOWER QUAD PAIN Acute Right upper quadrant abdominal pain with abnormal CT abdomen and pelvis. End-stage renal disease on hemodialysis. Diabetes mellitus type 2. Seizure disorder. Bilateral hearing loss. Normocytic normochromic anemia secondary to chronic kidney disease - Plan Plan: Surgical evaluation. IV antibiotic. Nephrology consult. General nursing care. Hemodialysis as scheduled. Monitoring the blood sugar. Continue basal and bolus insulin therapy. Seizure precautions. Seizure medications. Appropriate home medication reconciliation. Follow lab. Follow consultants recommendations. Care plan reviewed and discussed with and patient.
[2016-11-10] MEDS ORDERED: INSULIN ASPART SLIDING SCALE 100 UNITS/ML UNIT SUBQ SCH (11:30)
[2016-11-10] MEDS: INSULIN ASPART SLIDING SCALE 100 UNITS/ML UNIT SUBQ SCH ×2 (16:57→21:44)
[2016-11-10] MEDS: D5-0.45NS 1,000 ML IV SCH (17:05)
[2016-11-11] MEDS: HYDROmorphone 2 mg/mL 1mL Vial IVP PRN ×3 (02:14→14:52)
[2016-11-11] MEDS ORDERED: SITAGLIPTIN PHOSPHATE 25 MG PO SCH (07:00)
[2016-11-11 07:17] LABS: ALB/GLOB RATIO 0.9 (1.0-1.8); ANION GAP 14.4 (7.0-16.0); BILIRUBIN,TOTAL 0.7 mg/dL (0.3-1.0); BUN/CREATININE RATIO 5.3; CALCIUM SERUM 8.8 mg/dL (8.6-10.3); CARBON DIOXIDE 24.4 mEq/L (21.0-31.0); POTASSIUM SERUM 3.8 mEq/L (3.5-5.1)
[2016-11-11 07:31] LABS: CREATININE - SERUM 8.1 mg/dL (0.7-1.3)
[2016-11-11 07:42] LABS: % MONOCYTES 10.2 % (2.0-10.0); % NEUTROPHILS 64.8 % (40.0-80.0); HEMATOCRIT 28.2 % (39.0-49.0); HEMOGLOBIN 9.7 gm/dL (13.2-17.3); MEAN CELL VOLUME 87.3 fl (80-99); MEAN CORPUSCULAR HGB CONC 34.3 pg (28.0-36.0); MEAN PLATELET VOLUME 7.5 fl; NEUTROPHILE ABSOLUTE 4.6 Th/cmm (1.8-8.0); PLATELET COUNT 155 Th/cmm (150-400); RED BLOOD COUNT 3.23 Mil/cmm (4.30-5.70); RED CELL DISTRIBUTION WIDTH 15.9 % (11.5-20.0); WHITE BLOOD COUNT 7.1 Th/cmm (4.8-10.8)
[2016-11-11] MEDS: INSULIN ASPART SLIDING SCALE 100 UNITS/ML UNIT SUBQ SCH ×2 (08:20→12:08)
[2016-11-11] MEDS ORDERED: LACTOBACILLUS COMBO NO 10 PO SCH (09:00)
[2016-11-11] MEDS ORDERED: [UNRECOGNIZED DRUG - OTHER] PO SCH (09:00)
[2016-11-11] MEDS ORDERED: Insulin Detemir 100 units/mL 10mL Vial SUBQ SCH (09:00)
[2016-11-11] MEDS ORDERED: Lactobacillus Rhamnosus 10 Billion CFU Capsule PO SCH (09:00)
[2016-11-11] MEDS ORDERED: VIT B CMPLX PO SCH (09:00)
[2016-11-11] MEDS ORDERED: Vitamin B Complex w/Vitamin C Tab PO SCH (09:00)
[2016-11-11] MEDS ORDERED: BIOTIN PO SCH (09:00)
[2016-11-11] MEDS ORDERED: Albumin 25% 25gm/100mL 25 GM/100 ML BTL IV SCH (11:34)
--- NOTE | 2016-11-11 12:48 | Consultation ---
Consult Note - Consult Note Service Date: 11/11/16 Referring Physician: Feliciano Davis Consult Note: PHYSICIAN Consultation Note: Date of Admission: 11/09/16 Purpose of Consultation: ESRD Chief Complaint: ABDOMINAL PAIN History of Present Illness: Patient YOVANI CAPELLAN was admitted to location [facility] with ABD. PAIN. 30-year-old [place] Nigerien male recently underwent open cholecystectomy by Dr. pittman. Patient was discharge home with outpatient follow-up by primary M[facility]. patient is a known case of end-stage kidney disease on dialysis 3 times a week which she receives from Dr. Theodore's dialysis unit. Patient presented to emergency room for evaluation of RUQ abdominal pain for 3 days duration. After a meal followed by emergency room [place] patient was admitted to the hospital due to abnormal CT abdominal and pelvis. Patient is still complaining of abdominal pain which is localized without any nausea, vomiting, diarrhea, headache, fever, chills, seizure, syncope. Patient' s pain currently adequately controlled with IV Dilaudid. 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 - Past Surgical History Past Surgical History: Cholecystectomy, Other (Status post failed renal transplant) Family Medical History - Family Member Mother History Unknown: Yes Ethnicity: Non- Living Status: Still Living Hx Family Cancer: No Hx Family Coronary Artery Disease: No Hx Family Congestive Heart Failure: No Hx Family Hypertension: No Hx Family Stroke: No Hx Family Diabetes: No Hx Family Seizures: No Hx Family Dementia: No Hx Family AIDS: No Hx Family HIV: No Hx Family COPD: No Hx Family Hepatitis: No Hx Family Psychiatric Problems: No Hx Family Tuberculosis: No Other Medical History: Unknown. Social History Smoke: No (Nonsmoker) Occupation: disabled Alcohol: None Drugs: None Lives: With Family Domestic Violence: Negative - Medications Home Medications: Home Medication Medication Instructions Recorded Type Lactobacillus Combo No.10 1 tab PO DAILY 10/21/16 History [Probiotic] Levetiracetam [Keppra] 500 mg PO BID 10/21/16 History Vit B Cmplx 3/FA/Vit C/Biotin 1 tab PO DAILY 10/21/16 History [[facility] Rx Tablet] Sitagliptin Phosphate [Januvia] 25 mg PO DAILYRT #30 tablet 10/31/16 Rx Ferric Citrate [Auryxia] 3 tab PO TID 11/09/16 History - Allergies Allergies/Adverse Reactions: Allergies Allergy/AdvReac Type Severity Reaction Status Date / Time No Known Allergies Allergy Verified 11/04/16 22:37 Review of Systems - Review of Systems Constitutional: Report: Other (no fever no chills) Eyes: Report: Other (no decreased vision) ENT: Report: Other (no throat pain no dysphagia) Respiratory: Report: Wheezing (no wheezing) Cardiovascular: Report: Other (no chest pain shortness of breath palpitation dizziness) Gastrointestinal: Report: Other (no nausea, vomiting, diarrhea) Genitourinary: Report: Other (no dysuria or mature area) Skin: Report: Other (no rash) Neurological: Report: Other (no seasonal syncope) Physical Exam - Physical Exam HEENT: Report: Ears Nose Throat Within Normal Limits, Pale Conjunctiva Neck: Report: WNL Cardiovascular Systems: Report: +s1/s2 noted Respiratory: Report: Clear to Auscultation of lung noonan Abdomen: Report: Tender to palpation, Guarding, Bowel Sounds are within normal limits, Mass palpated Back: Report: Inspection of back is within normal limits. Extremities: Report: Non-tender to palpation., Patient had full range of motion , No pedal edema was noted on inspection Skin: Report: Color of skin is within normal limits Neuro/Psych: Report: A+Ox3, CN II-XII intact, No motor deficit, No sensory deficit Other Systems Exam: Hemodialysis access reported on left upper extremity. - Lab Results All Lab Results last 24 hours: Laboratory Last Values WBC 6.7 Th/cmm (4.8-10.8) 11/09/16 17:12 RBC 3.29 Mil/cmm (4.30-5.70) L 11/09/16 17:12 Hgb 9.7 gm/dL (13.2-17.3) L 11/09/16 17:12 Hct 28.8 % (39.0-49.0) L 11/09/16 17:12 MCV 87.6 fl (80-99) 11/09/16 17:12 MCH 29.5 pg (26.0-30.0) 11/09/16 17:12 MCHC Differential 33.6 pg (28.0-36.0) 11/09/16 17:12 RDW 16.0 % (11.5-20.0) 11/09/16 17:12 Plt Count 191 Th/cmm (150-400) D 11/09/16 17:12 MPV 6.7 fl 11/09/16 17:12 Neutrophils % 58.3 % (40.0-80.0) 11/09/16 17:12 Lymphocytes % 30.4 % (20.0-50.0) 11/09/16 17: Monocytes % 7.8 % (2.0-10.0) 11/09/16 17: Eosinophils % 3.4 % (0.0-5.0) 11/09/16 17: Basophils % 0.1 % (0.0-2.0) 11/09/16 17:12 PT 10.3 SECONDS (9.5-11.5) 11/09/16 17:12 INR 0.99 (0.5-1.4) 11/09/16 17:12 PTT (Actin FS) 27.4 SECONDS (26.0-38.0) 11/09/16 17:12 Sodium 134 mEq/L (136-145) L 11/09/16 17:12 Potassium 3.5 mEq/L (3.5-5.1) 11/09/16 17: Chloride 97 mEq/L (98-107) L 11/09/16 17:12 Carbon Dioxide 28.1 mEq/L (21.0-31.0) 11/09/16 17:12 Anion Gap 12.4 (7.0-16.0) 11/09/16 17:12 BUN 25 mg/dL (7-25) 11/09/16 17: Creatinine 5.6 mg/dL (0.7-1.3) H* 11/09/16 17:12 Est GFR ( Amer) 15.4 ml/min (>90) 11/09/16 17: Est GFR (Non-Af Amer) 12.7 ml/min 11/09/16 17:12 BUN/Creatinine Ratio 4.5 11/09/16 17:12 Glucose 266 mg/dL (70-105) H 11/09/16 17:12 Calcium 9.1 mg/dL (8.6-10.3) 11/09/16 17:12 Total Bilirubin 0.6 mg/dL (0.3-1.0) 11/09/16 17:12 AST 163 U/L (13-39) H 11/09/16 17:12 ALT 79 U/L (7-52) H 11/09/16 17:12 Alkaline Phosphatase 307 U/L (34-104) H 11/09/16 17:12 Total Protein 6.8 gm/dL (6.0-8.3) 11/09/16 17:12 Albumin 3.3 gm/dL (4.2-5.5) L 11/09/16 17:12 Globulin 3.5 gm/dL 11/09/16 17:12 Albumin/Globulin Ratio 0.9 (1.0-1.8) L 11/09/16 17:12 Amylase 162 U/L (29-103) H 11/09/16 17:12 Lipase 79 U/L (11-82) 11/09/16 17:12 Urine Source CLEAN C 11/09/16 17:05 Urine Color YELLOW 11/09/16 17:05 Urine Clarity CLEAR (CLEAR) 11/09/16 17:05 Urine pH 7.0 11/09/16 17:05 Ur Specific [place] 1.015 (1.005-1.030) 11/09/16 17:05 Urine Protein 100 mg/dL (NEGATIVE) H 11/09/16 17:05 Urine Glucose (UA) 100 mg/dL (NEGATIVE) H 11/09/16 17:05 Urine Ketones NEGATIVE mg/dL (NEGATIVE) 11/09/16 17:05 Urine Blood TRACE (NEGATIVE) 11/09/16 17:05 Urine Nitrate NEGATIVE (NEGATIVE) 11/09/16 17:05 Urine Bilirubin NEGATIVE (NEGATIVE) 11/09/16 17:05 Urine Urobilinogen 0.2 E.U./dL (0.2 - 1.0) 11/09/16 17:05 Ur Leukocyte Esterase NEGATIVE (NEGATIVE) 11/09/16 17:05 Urine RBC 0-2 /hpf (0-5) H 11/09/16 17:05 Urine WBC 2-5 /hpf (0-5) H 11/09/16 17:05 Ur Epithelial Cells RARE /lpf (FEW) 11/09/16 17:05 Urine Bacteria OCCASIONAL /hpf (NONE SEEN) 11/09/16 17:05 Blood Type AB POSITIVE 11/09/16 17:12 Antibody Screen NEGATIVE 11/09/16 17:12 - Assessment Assessment: Current Active Problems Problem Status Onset WEAKNESS WITH RIGHT LOWER QUAD PAIN Acute WEAKNESS WITH RIGHT LOWER QUAD PAIN Acute Right upper quadrant abdominal pain with abnormal CT abdomen and pelvis. End-stage renal disease on hemodialysis. Diabetes mellitus type 2. Seizure disorder. Bilateral hearing loss. Normocytic normochromic anemia secondary to chronic kidney disease - Plan Plan: will continue to provide HD support DR. kumari to see the patient follow up CT scan report Signed, Daniel Khan M.D. [id number]
[2016-11-11] MEDS: D5-0.45NS 1,000 ML IV SCH (12:54)
== END 2016-11-11 16:20 | disposition home or self-care (01) | DRG 251 ==
LOC: ER 16:06 → MSI 18:00
PROVIDERS: ADMIT Internal Medicine; ATTEND Internal Medicine
DX: R10.9 Unspecified abdominal pain (principal); N18.6 End stage renal disease; E11.22 Type 2 diabetes mellitus with diabetic chronic kidney disease; G40.909 Epilepsy, unspecified, not intractable, without status epilepticus; H91.93 Unspecified hearing loss, bilateral; D63.1 Anemia in chronic kidney disease; Z99.2 Dependence on renal dialysis; Z90.49 Acquired absence of other specified parts of digestive tract
CPT/HCPCS: 36415-UA; 80053-TC; 80299-90; 81001-TC; 82150-TC; 82948-90; 83690-TC; 85025-TC; 85610-TC; 85730-TC; 86850-TC; 86900-TC; 86901-TC; 96374; 96375; J1170; J1815; J2543; J7030; P9046; Z7610

== ENCOUNTER 2016-12-10 20:30 | Inpatient (IN) | payer MEDICAID ==
--- NOTE | 2016-12-10 21:14 | ED Physician Chart ---
Chief Complaint/HPI - Patient Information Date Seen:: 12/10/16 Time Seen:: 20:46 Chief Complaint:: RIGHT SIDED ABDOMINAL PAIN History of Present Illness:: THIS IS A 31 YO [place] MALE WHO PRESENTS WITH RIGHT UPPER QUADRANT PAIN. HE STATES THAT HIS PMD HAS NOT GIVEN HIM ANY PAIN MEDICATION SINCE THE RECENT SURGERY. OF SIGNIFICANCE HE IS A DIALYSIS PATIENT AND HAD DIALYSIS YESTERDAY. HE STATES THAT HE HAS BEEN VOMITING AND HAS HAD DIARRHEA FOR SEVERAL DAYS. HE DENIES FEVER, CHILLS, SEIZURE SYNCOPE AND HEADACHE. Allergies:: Allergies Allergy/AdvReac Type Severity Reaction Status Date / Time No Known Allergies Allergy Verified 12/10/16 20:50 Vitals:: Vital Signs - 8 hr 12/10/16 20:40 Temp 97.8 F HR 78 RR 18 BP 161/90 O2 Sat % 100 Historian:: Patient Review:: Nurse's Note Reviewed, Old Chart Reviewed Review of Systems - Review of Systems General/Constitutional: No fever, No chills, No weight loss, No weakness, No diaphoresis, No edema, No loss of appetite Skin: No skin lesions, No rash, No bruising Head: No headache, No light-headedness Eyes: No loss of vision, No pain, No diplopia ENT: No earache, No nasal drainage, No sore throat, No tinnitus Neck: No neck pain, No swelling, No thyromegaly, No stiffness, No mass noted Cardio Vascular: No chest pain, No palpitations, No PND, No orthopnea, No edema Pulmonary: No SOB, No cough, No sputum, No wheezing GI: Nausea, Vomiting, Diarrhea, Pain, No melena, No hematochezia, No constipation, No hematemesis G/U: No dysuria, No frequency, No hematuria Musculoskeletal: No bone or joint pain, No back pain, No muscle pain Endocrine: No polyuria, No polydipsia Psychiatric: No prior psych history, No depression, No anxiety, No suicidal ideation Hematopoietic: No bruising, No lymphadenopathy Allergic/Immuno: No urticaria, No angioedema Neurological: No syncope, No focal symptoms, No weakness, No paresthesia, No headache, No seizure, No dizziness, No confusion, No vertigo Past Medical History - Past Medical History Obtainable: Yes Past Medical History: HTN, DM, ESRD, Seizures Family History: None Social History: Non Smoker, No Alcohol, No Drug Use, Lives With Parents Surgical History: Cholecystectomy, other (ACCESS LINE PLACEMENT FOR DIALYSIS) Family Medical History - Family Member Mother History Unknown: Yes Ethnicity: Non- Living Status: Still Living Hx Family Cancer: No Hx Family Coronary Artery Disease: No Hx Family Congestive Heart Failure: No Hx Family Hypertension: No Hx Family Stroke: No Hx Family Diabetes: No Hx Family Seizures: No Hx Family Dementia: No Hx Family AIDS: No Hx Family HIV: No Hx Family COPD: No Hx Family Hepatitis: No Hx Family Psychiatric Problems: No Hx Family Tuberculosis: No Physical Exam - Physical Examination General/Constitutional: Awake, Well-developed, well-nourished, Alert, No distress, GCS 15, Non-toxic appearing, Ambulatory Head: Atraumatic Eyes: Lids, conjuctiva normal, PERRL, EOMI Skin: Nl inspection, No rash, No skin lesions, No ecchymosis, Well hydrated, No lymphadenopathy ENMT: External ears, nose nl, Nasal exam nl, Lips, teeth, gums nl Neck: Nontender, Full ROM w/o pain, No JVD, No nuchal rigidity, No bruit, No mass, No stridor Respiratory: Nl effort/Exclusion, Clear to Auscultation, No Wheeze/Rhonchi/Rales Cardio Vascular: RRR, No murmur, gallop, rubs, NL S1 S2 GI: No tenderness/rebounding/guarding (MINIMAL RIGHT UPPER QUADRANT TENDERNESS) , No organomegaly, No hernia, Normal BS's, Nondistended, No mass/bruits, No McBurney tenderness : No CVA tenderness Extremities: No tenderness or effusion, Full ROM, normal strength in all extremities, No edema, Normal digits & nails Neuro/Psych: Alert/oriented, DTR's symmetric, Normal sensory exam, Normal motor strength, Judgement/insight normal, Mood normal, Normal gait, No focal deficits Misc: normal gait, Normal back, No paraspinal tenderness Labs/Radiology/EKG Results - Lab Results Results: Abnormal Lab Results 12/10/16 12/10/16 12/10/16 21:19 21:19 21:19 WBC 9.0 D RBC 4.23 L Hgb 12.7 L D Hct 38.0 L D MCV 89.8 MCH 29.9 MCHC Differential 33.3 RDW 16.6 Plt Count 184 MPV 8.2 Neutrophils % 75.8 Lymphocytes % 16.3 L Monocytes % 6.9 Eosinophils % 1.0 Basophils % 0.0 PT 11.0 INR 1.06 PTT (Actin FS) 25.4 L Sodium Potassium Chloride Carbon Dioxide Anion Gap BUN Creatinine Est GFR ( Amer) Est GFR (Non-Af Amer) BUN/Creatinine Ratio Glucose Hemoglobin A1c % Calcium Total Bilirubin AST ALT Alkaline Phosphatase Troponin I Total Protein Albumin Globulin Albumin/Globulin Ratio Triglycerides 46 Cholesterol 122 LDL Cholesterol Direct 30 L HDL Cholesterol 71 TSH 12/10/16 12/10/16 12/10/16 21:19 21:19 21:19 WBC RBC Hgb Hct MCV MCH MCHC Differential RDW Plt Count MPV Neutrophils % Lymphocytes % Monocytes % Eosinophils % Basophils % PT INR PTT (Actin FS) Sodium 133 L Potassium 3.7 Chloride 97 L Carbon Dioxide 20.5 L Anion Gap 19.2 H BUN 51 H Creatinine 7.9 H* Est GFR ( Amer) 10.3 Est GFR (Non-Af Amer) 8.5 BUN/Creatinine Ratio 6.5 Glucose 185 H Hemoglobin A1c % Calcium 10.3 Total Bilirubin 2.6 H AST 496 H ALT 366 H Alkaline Phosphatase 512 H Troponin I < 0.01 L Total Protein 7.2 Albumin 4.2 Globulin 3.0 Albumin/Globulin Ratio 1.4 Triglycerides Cholesterol LDL Cholesterol Direct HDL Cholesterol TSH 6.49 H 12/10/16 21:19 WBC RBC Hgb Hct MCV MCH MCHC Differential RDW Plt Count MPV Neutrophils % Lymphocytes % Monocytes % Eosinophils % Basophils % PT INR PTT (Actin FS) Sodium Potassium Chloride Carbon Dioxide Anion Gap BUN Creatinine Est GFR ( Amer) Est GFR (Non-Af Amer) BUN/Creatinine Ratio Glucose Hemoglobin A1c % 5.0 Calcium Total Bilirubin AST ALT Alkaline Phosphatase Troponin I Total Protein Albumin Globulin Albumin/Globulin Ratio Triglycerides Cholesterol LDL Cholesterol Direct HDL Cholesterol TSH - Radiology Results Results: CT SCAN OF THE ABDOMEN = COMMON BILE DUCT DILATATION. ESRD DIABETES MELLITUS HYPERTENSION ELEVATED LIVER ENZYMES. Assessment - Assessment General Assessment: DILATION OF THE COMMON BILE DUCT. ED Septic Shock - . Is Septic Shock (SBP<90, OR Lactate>4 mmol\L) present?: No - <6hrs of presentation: Vital Signs: Vital Signs - 8 hr 12/10/16 20:40 Temp 97.8 F HR 78 RR 18 BP 161/90 O2 Sat % 100 Reassessment (Disposition) - Reassessment Reassessment Condition:: Improved - Diagnosis Diagnosis:: COMMON BILE DUCT DILATATION ELEVATED LIVER ENZYMES ESRD DIABETES MELLITUS - Patient Disposition Discharge/Transfer:: Acute Care w/in this hosp Admitting Medical Physician:: Keaton Hummel Condition at Disposition:: Stable ED Discharge Plan - Patient Disposition Admit/Discharge/Transfer: Acute Care w/in this hosp Condition at Disposition: Stable
[2016-12-10 21:34] LABS: % LYMPHOCYTES 16.3 % (20.0-50.0); % MONOCYTES 6.9 % (2.0-10.0); % NEUTROPHILS 75.8 % (40.0-80.0); MEAN CELL VOLUME 89.8 fl (80-99); MEAN CORPUSCULAR HEMOGLOBIN 29.9 pg (26.0-30.0); MEAN CORPUSCULAR HGB CONC 33.3 pg (28.0-36.0); MEAN PLATELET VOLUME 8.2 fl; NEUTROPHILE ABSOLUTE 6.8 Th/cmm (1.8-8.0); PLATELET COUNT 184 Th/cmm (150-400); RED BLOOD COUNT 4.23 Mil/cmm (4.30-5.70); RED CELL DISTRIBUTION WIDTH 16.6 % (11.5-20.0)
[2016-12-10 21:38] LABS: HEMOGLOBIN 12.7 gm/dL (13.2-17.3)
[2016-12-10 21:42] LABS: INR 1.06 (0.5-1.4)
[2016-12-10 21:46] LABS: ALB/GLOB RATIO 1.4 (1.0-1.8); ANION GAP 19.2 (7.0-16.0); BILIRUBIN,TOTAL 2.6 mg/dL (0.3-1.0); BUN/CREATININE RATIO 6.5; CALCIUM SERUM 10.3 mg/dL (8.6-10.3); CARBON DIOXIDE 20.5 mEq/L (21.0-31.0); CHOLESTEROL 122 mg/dL (<200); POTASSIUM SERUM 3.7 mEq/L (3.5-5.1); TRIGLYCERIDES 46 mg/dL (<150)
[2016-12-10 21:50] LABS: CREATININE - SERUM 7.9 mg/dL (0.7-1.3)
[2016-12-10] MEDS ORDERED: IOHEXOL 350mg/mL 100mL Bottle IVP ONE (22:39)
[2016-12-11] MEDS ORDERED: HYDROmorphone 1 mg/mL 1mL Syr ONE (00:10)
[2016-12-11] MEDS ORDERED: HYDROmorphone 1 mg/mL 1mL Syr IVP STA (00:16)
[2016-12-11] MEDS ORDERED: HYDROmorphone 1 mg/mL 1mL Syr IVP PRN (01:23)
[2016-12-11] MEDS ORDERED: Piperacillin Sodium/Tazobact 2.25 gm Vial IV ONE (02:51)
[2016-12-11] MEDS: Piperacillin/Tazobact 2.25 gm in 0.9% NS 50 ML IV SCH ×3 (02:53→21:04)
[2016-12-11 05:47] LABS: % BASOPHILS 0.2 % (0.0-2.0); % EOSINOPHILS 0.8 % (0.0-5.0); % LYMPHOCYTES 16.6 % (20.0-50.0); % MONOCYTES 7.4 % (2.0-10.0); HEMOGLOBIN 12.2 gm/dL (13.2-17.3); MEAN CELL VOLUME 88.3 fl (80-99); MEAN CORPUSCULAR HGB CONC 33.9 pg (28.0-36.0); MEAN PLATELET VOLUME 7.4 fl; NEUTROPHILE ABSOLUTE 4.4 Th/cmm (1.8-8.0); PLATELET COUNT 178 Th/cmm (150-400); RED BLOOD COUNT 4.07 Mil/cmm (4.30-5.70); RED CELL DISTRIBUTION WIDTH 17.3 % (11.5-20.0)
[2016-12-11 05:53] LABS: ALB/GLOB RATIO 1.3 (1.0-1.8); BILIRUBIN,TOTAL 3.8 mg/dL (0.3-1.0); CALCIUM SERUM 9.9 mg/dL (8.6-10.3); CARBON DIOXIDE 19.5 mEq/L (21.0-31.0); POTASSIUM SERUM 5.5 mEq/L (3.5-5.1)
[2016-12-11 06:30] LABS: WHITE BLOOD COUNT 5.8 Th/cmm (4.8-10.8)
[2016-12-11 06:35] LABS: CREATININE - SERUM 8.4 mg/dL (0.7-1.3)
[2016-12-11] MEDS: INSULIN ASPART SLIDING SCALE 100 UNITS/ML UNIT SUBQ SCH ×4 (07:19→21:05)
[2016-12-11 08:06] LABS: URINE BILIRUBIN NEGATIVE (NEGATIVE); URINE BLOOD SMALL (NEGATIVE); URINE GLUCOSE (UA) 250 mg/dL (NEGATIVE); URINE KETONE NEGATIVE (NEGATIVE); URINE PROTEIN 100 mg/dL (NEGATIVE); URINE UROBILINOGEN 0.2 E.U./dL (0.2 - 1.0)
[2016-12-11 08:15] LABS: URINE COLOR YELLOW
[2016-12-11] MEDS ORDERED: SITAGLIPTIN PHOSPHATE 25 MG PO SCH (09:00)
--- NOTE | 2016-12-11 09:23 | Diagnostic Imaging Report ---
Exam: CT examination of the abdomen pelvis. HISTORY: Pain Total DLP equals 265 CTDI equals 5.7 Findings: Multiple contiguous thin section of the abdomen pelvis obtained the from a lower thorax to pubic symphysis with intravenous contrast material. No prior studies available for comparison. Findings: Study demonstrates hepatomegaly with fatty infiltration of liver parenchyma. The stomach is distended with fluid and air. There is evidence of previous cholecystectomy. A large amount of the fluid collection of gallbladder fossa measuring 6.6 x 4.1 cm appreciated. This might represent seroma or hematoma. Bile duct is dilated up to 1.1 cm which is noted which is not unusual in postcholecystectomy patient. There is evidence for atrophic kidneys bilaterally with the right lower quadrant renal transplant to be normally enhanced. The urinary bladder is intact. The visualized pancreas is normal. The small ascitic fluid collections noted. There is a question of sequela of old pancreatitis. Bony structures demonstrate no evidence for lytic or blastic structures. IMPRESSION: 1. Fatty infiltration of liver parenchyma 2. 6.6 x 4.1 collection of fluid in gallbladder fossa which might represent hematoma seroma., Adjacent edema. Small collection of fluid in the abdomen. 3. Mild ileus 4. Distention of the stomach 5. Right renal transplant demonstrates normal enhancement pattern. .Large amount of fecal content in the right abdomen
--- NOTE | 2016-12-11 11:21 | General Progress Note ---
Subjective - Review of Systems Service Date: 12/11/16 Events since last encounter: LFT elevated, had open cholecystectomy weeks ago MRCP and HIDA ordered Objective - Results Result Diagrams: 12/11/16 05:05 12/11/16 05:05 Recent Labs: Laboratory Last Values WBC 5.8 Th/cmm (4.8-10.8) D 12/11/16 05:05 RBC 4.07 Mil/cmm (4.30-5.70) L 12/11/16 05:05 Hgb 12.2 gm/dL (13.2-17.3) L 12/11/16 05:05 Hct 36.0 % (39.0-49.0) L 12/11/16 05:05 MCV 88.3 fl (80-99) 12/11/16 05:05 MCH 30.0 pg (26.0-30.0) 12/11/16 05:05 MCHC Differential 33.9 pg (28.0-36.0) 12/11/16 05:05 RDW 17.3 % (11.5-20.0) 12/11/16 05:05 Plt Count 178 Th/cmm (150-400) 12/11/16 05:05 MPV 7.4 fl 12/11/16 05:05 Neutrophils % 75.0 % (40.0-80.0) 12/11/16 05:05 Lymphocytes % 16.6 % (20.0-50.0) L 12/11/16 05:05 Monocytes % 7.4 % (2.0-10.0) 12/11/16 05:05 Eosinophils % 0.8 % (0.0-5.0) 12/11/16 05:05 Basophils % 0.2 % (0.0-2.0) 12/11/16 05:05 PT 11.0 SECONDS (9.5-11.5) 12/10/16 21:19 INR 1.06 (0.5-1.4) 12/10/16 21:19 PTT (Actin FS) 25.4 SECONDS (26.0-38.0) L 12/10/16 21:19 Sodium 131 mEq/L (136-145) L 12/11/16 05:05 Potassium 5.5 mEq/L (3.5-5.1) H 12/11/16 05:05 Chloride 98 mEq/L (98-107) 12/11/16 05:05 Carbon Dioxide 19.5 mEq/L (21.0-31.0) L 12/11/16 05:05 Anion Gap 19.0 (7.0-16.0) H 12/11/16 05:05 BUN 59 mg/dL (7-25) H 12/11/16 05:05 Creatinine 8.4 mg/dL (0.7-1.3) H* 12/11/16 05:05 Est GFR ( Amer) 9.6 ml/min (>90) 12/11/16 05:05 Est GFR (Non-Af Amer) 7.9 ml/min 12/11/16 05:05 BUN/Creatinine Ratio 7.0 12/11/16 05:05 Glucose 150 mg/dL (70-105) H 12/11/16 05:05 POC Glucose 127 MG/DL (70 - 105) H 12/11/16 06:41 Hemoglobin A1c % 5.0 % (4.0-6.0) 12/10/16 21:19 Calcium 9.9 mg/dL (8.6-10.3) 12/11/16 05:05 Total Bilirubin 3.8 mg/dL (0.3-1.0) H 12/11/16 05:05 AST 330 U/L (13-39) H 12/11/16 05:05 ALT 340 U/L (7-52) H 12/11/16 05:05 Alkaline Phosphatase 522 U/L (34-104) H 12/11/16 05:05 Troponin I < 0.01 ng/mL (0.01-0.05) L 12/10/16 21:19 Total Protein 6.8 gm/dL (6.0-8.3) 12/11/16 05:05 Albumin 3.9 gm/dL (4.2-5.5) L 12/11/16 05:05 Globulin 2.9 gm/dL 12/11/16 05:05 Albumin/Globulin Ratio 1.3 (1.0-1.8) 12/11/16 05:05 Triglycerides 46 mg/dL (<150) 12/10/16 21:19 Cholesterol 122 mg/dL (<200) 12/10/16 21:19 LDL Cholesterol Direct 30 mg/dL (75-193) L 12/10/16 21:19 HDL Cholesterol 71 mg/dL (23-92) 12/10/16 21:19 Amylase 127 U/L (29-103) H 12/11/16 05:05 Lipase 52 U/L (11-82) 12/11/16 05:05 TSH 6.49 uIU/ml (0.34-5.60) H 12/10/16 21:19 Urine Color YELLOW 12/11/16 07:40 Urine Clarity H (CLEAR) 12/11/16 07:40 Urine pH 7.0 (4.6 - 8.0) 12/11/16 07:40 Ur Specific [place] 1.010 (1.005-1.030) 12/11/16 07:40 Urine Protein 100 mg/dL (NEGATIVE) H 12/11/16 07:40 Urine Glucose (UA) 250 mg/dL (NEGATIVE) H 12/11/16 07:40 Urine Ketones NEGATIVE mg/dL (NEGATIVE) 12/11/16 07:40 Urine Blood SMALL (NEGATIVE) H 12/11/16 07:40 Urine Nitrate NEGATIVE (NEGATIVE) 12/11/16 07:40 Urine Bilirubin NEGATIVE (NEGATIVE) 12/11/16 07:40 Urine Urobilinogen 0.2 E.U./dL (0.2 - 1.0) 12/11/16 07:40 Ur Leukocyte Esterase NEGATIVE (NEGATIVE) 12/11/16 07:40 - Physical Exam Vitals and I&O: Vital Signs Temp 97.8 F 12/11/16 08:00 Pulse 85 12/11/16 08:00 Resp 18 12/11/16 10:20 BP 149/85 12/11/16 08:00 Pulse Ox 96 12/11/16 08:00 Intake & Output 12/10/16 12/11/16 12/11/16 18:59 06:59 18:59 Intake Total 50 Balance 50 Intake: Intake, IV Amount 50 Piperacillin Sodium/ 50 Tazobact 2.25 gm In Sodium Chloride 0.9% 50 ml @ 100 mls/hr IV Q8HR [facility] Rx#:[id number] Active Medications: Current Medications Hydromorphone HCl (Dilaudid) 1 mg IVP Q6HR PRN PRN Reason: PAIN Stop: 02/09/17 01:22 Last Admin: 12/11/16 09:56 Dose: 1 mg Piperacillin Sod/Tazobactam (Sod 2.25 gm/ Sodium Chloride) 50 mls @ 100 mls/hr IV Q8HR [facility] Stop: 02/09/17 01:44 Last Infusion: 12/11/16 04:53 Dose: Infused Insulin Aspart (Novolog Insulin Sliding Scale) 0 units SUBQ ACHS [facility] PRN Reason: Protocol Stop: 02/09/17 07:29 Last Admin: 12/11/16 07:19 Dose: Not Given Levetiracetam (Keppra) 500 mg PO BID [facility] Stop: 02/09/17 08:59 Last Admin: 12/11/16 09:01 Dose: 500 mg Miscellaneous (Sitagliptin Phosphate [Januvia]) 25 mg PO DAILY [facility] Stop: 02/09/17 08:59 Miscellaneous (Zosyn Iv Per Pharmacy) 1 ea MC PRN PRN PRN Reason: PROTOCOL Stop: 02/09/17 04:59 Ondansetron HCl (Zofran) 4 mg IV Q6HR PRN PRN Reason: Nausea / Vomiting Stop: 02/09/17 01:22 - Procedures Procedures: Procedures Procedure Code Date ABDOMEN SURGERY PROCEDURE 17848 10/21/16 EGD BIOPSY SINGLE/MULTIPLE 40609 02/20/16 EXCISION OF DUODENUM, ENDO, DIAGN [id number] 02/20/16 EXCISION OF STOMACH, PYLORUS, ENDO, DIAGN [id number] 02/20/16 INTRODUCTION OF SERUM/TOX/VACCINE INTO MUSCLE, PERC APPROACH [id number] 11/05/16 PERFORMANCE OF URINARY FILTRATION, MULTIPLE [id number] 10/21/16 PERFORMANCE OF URINARY FILTRATION, SINGLE [id number] 11/05/16 RELEASE GREATER OMENTUM, OPEN APPROACH [id number] 10/21/16 RELEASE LIVER, OPEN APPROACH [id number] 10/21/16 REMOVAL OF GALLBLADDER 16571 10/21/16 RESECTION OF GALLBLADDER, OPEN APPROACH [id number] 10/21/16 TRANSFUSE NONAUT RED BLOOD CELLS IN PERIPH VEIN, PERC [id number] 11/05/16 Assessment/Plan - Problem List Patient Problems: All Active Problems NOT FEELING GOOD WITH NAUSEA (Acute) The administrative codes within the [employer] content you are accessing may have as of 02/06/2016. Please contact your IT Dept/Help Desk and request the latest Regulatory release be installed. IT Dept/Help Desk- Please refer to our FAQ page ([email or web address]) or contact [employer] Customer Support at [email or web address] (Acute ~02/20/16) WEAKNESS WITH RIGHT LOWER QUAD PAIN (Acute) WEAKNESS WITH RIGHT LOWER QUAD PAIN (Acute)
[2016-12-11 14:34] LABS: URINE BACTERIA NONE SEEN /hpf (NONE SEEN); URINE EPITHELIAL CELLS OCCASIONAL /lpf (FEW); URINE RBC 0-2 /hpf (0-5); URINE WBC 0-2 /hpf (0-5)
[2016-12-11] MEDS: HYDROmorphone 1 mg/mL 1mL Syr IVP PRN ×2 (15:34→20:57)
--- NOTE | 2016-12-11 20:58 | Consultation ---
DATE OF CONSULTATION: 12/11/2016 REQUESTING PHYSICIAN: Keaton Hummel M.D. REASON FOR CONSULTATION: Abdominal pain with diarrhea. HISTORY OF PRESENT ILLNESS: This is a 31-year-old male with history of end-stage renal disease, hemodialysis dependent since an infant. 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 This did well until 4 years ago when it failed. He was placed back on dialysis at that time. He has had chronic diarrhea. He had abdominal pain about 6 weeks ago for which he was admitted here. He underwent a laparoscopic cholecystectomy during which time, a gangrenous gallbladder was removed. The patient has been having abdominal pain since the surgery. It became worse and he came to the ER here. Here, he was noted to have elevation of liver enzymes. The preoperative MRCP prior to his laparoscopic cholecystectomy was essentially negative. He also had on CT imaging, a fluid collection in the gallbladder fossa along with a dilated bile duct. We were asked to evaluate the patient for his abdominal pain. PAST MEDICAL HISTORY: As above, also notable for diabetes mellitus, end-stage renal disease, hemodialysis dependent, renal transplantation that failed, and cholecystectomy. Seizure disorder. MEDICATIONS: Here are Dilaudid, insulin sliding scale, Keppra. MEDICATIONS: Zosyn and Zofran. ALLERGIES: None. SOCIAL HISTORY: No recent tobacco, alcohol, or drugs. Lives with mother who was involved in his care. SOCIAL HISTORY: No tobacco, alcohol, or drugs. FAMILY HISTORY: Noncontributory. REVIEW OF SYSTEMS: Negative. PHYSICAL EXAMINATION: VITAL SIGNS: Temperature of 97.8, blood pressure 149/85, pulse of 85, respirations 18, and O2 sat is 96% on room air. GENERAL: The patient is well-developed small statured male in no acute distress. HEENT: Sclerae nonicteric. Oropharynx is clear. CARDIOVASCULAR: Regular rate and rhythm. LUNGS: Clear to auscultation bilaterally. ABDOMEN: Soft, mild epigastric to palpation. EXTREMITIES: No clubbing, cyanosis, or edema. RECTAL: Deferred. LABORATORY DATA AND IMAGING: Initial WBC is 9.0 coming down to 5.8, hemoglobin 12.2, platelet count is 178,000. INR is normal at 1.06, sodium 131, creatinine 8.4 on dialysis, A1c is 5, bilirubin 3.8, AST went from 496 to 333, ALT went from 366 to 340, alkaline phosphatase went from 512 to 522. Troponin is negative. Amylase is mildly elevated to 127. Lipase is normal. Urinalysis shows small blood. CT of the abdomen and pelvis done with IV contrast shows fatty liver 6.6 x 4.1 collection of fluid in the gallbladder fossa, which may represent a hematoma or seroma with adjacent edema and small fluid collection in the abdomen and also mild ileus, distention of stomach, and right renal transplantation demonstrating normal enhancement. Large amount of fecal content in the right abdomen also noted. There also was a bile duct dilation up to 1.1 cm. IMPRESSION: 1. Abdominal pain after cholecystectomy with CT showing gallbladder fossa fluid collection and labs showing abnormal liver enzymes along with dilated common bile duct. DIFFERENTIAL DIAGNOSES: Retained common bile duct stone with resultant biloma and bile leak, also possible is infected seroma/abscess or infected hematoma. 2. History of end-stage renal disease, hemodialysis dependent, with failed renal transplantation. 3. Chronic diarrhea. 4. Recent cholecystectomy 6 weeks ago. 5. History of diabetes mellitus. RECOMMENDATIONS: 1. Check HIDA scan to rule out bile leak. 2. Check MRCP. 3. May need ERCP to clear the bile duct of stones if present and to place a stent if bile leak is present. 4. May need percutaneous drainage of fluid collection prior to ERCP. Thank you Dr. Keaton Hummel for involving us in the care of your patient. If you have any further questions, please call us. JOB# [id number]
--- NOTE | 2016-12-11 21:00 | Admit Criteria Form ---
Admit Criteria Forms - Admit Criteria Diagnosis: GALLBLADDER OR BILE DUCT INFLAMMATION OR STONE Clinical Indications for Admission to Inpatient Care ( Place 'X' for any and all applicable criteria): Admission is indicated for patients with ANY ONE of the following(1)(2)(3)(4)(5) : [ ]I. Acute cholecystitis as indicated by ALL of the following: [ ]a) Right upper quadrant pain, mass, or tenderness [ ]b) Systemic signs of inflammation indicated by ANY ONE of the following: [ ]i) Fever [ ]ii) C-reactive protein level greater than 10 mg/L (95 nmol/L) [ ]iii) White blood cell count greater than 10,000/mm3 (10 x109/L) or less than 4000/mm3 (4 x109/L) [X ]II. Inpatient admission required rather than observation care (Also use Gallbladder or Bile Duct Inflammation or Stone: Observation Care as appropriate) because of ANY ONE of the following: [ ]a) Common bile duct obstruction diagnosed [ ]b) Vomiting that is severe or persistent [X ]c) Severe pain requiring acute inpatient management [ ]d) Signs of intestinal obstruction or peritonitis [A] [ ]e) Severe electrolyte abnormalities requiring inpatient care [ ]f) Absent bowel sounds with complete ileus(8) [ ]g) Hemodynamic instability [ ]h) High fever or infection requiring inpatient admission as indicated by ANY ONE of the following (9): [ ]1) Appropriate outpatient or observation care antimicrobial Treatment. unavailable, not effective, or not feasible [ ]2) Temperature greater than 104.9 degrees F (40.5 degrees C) (oral) [ ]3) Temperature greater than 103.1 degrees F (39.5 degrees C) (oral) or less than 96.8 degrees F (36 degrees C) (rectal) that does not respond to all emergency treatment measures [ ]4) Documented bacteremia [ ]i) IV fluid to replace significant ongoing losses (greater than 3 L/m2 per day) [ ]j) Percutaneous or open drainage (eg, abscess, biliary tract) procedures [ ]k) Immediate inpatient surgery [X ]l) Other condition, treatment or monitoring requiring inpatient admission [ ]III. Acute cholangitis as indicated by ALL of the following(9)(10): [ ]a) Systemic signs of inflammation indicated by ANY ONE of the following: [ ]i) Fever [ ]ii) C-reactive protein level greater than 10 mg/L (95 nmol /L) [ ]iii) White blood cell count greater than 10,000/mm3 (10 x109/L) or less than 4000/mm3 (4 x109/L) [ ]b) Evidence of common bile duct disease indicated by ANY ONE of the following: [ ]i) Total serum bilirubin level greater than or equal to 2 mg/dL (34 micromoles/L) [ ]ii) Liver function test (alkaline phosphatase (ALP), r- glutamyltransferase (GGT), aspartate aminotransferase (AST), or alanine aminotransferase (ALT)) greater than 1.5 times the upper limit of normal[B] [ ]iii) Hepatobiliary imaging showing biliary dilatation or evidence of etiology (eg, stricture, stone, previously placed stent) Extended stay beyond goal length of stay may be needed for (1)(2)): [ ]a) Bacteremia or Hemodynamic instability [ ]b) Cholecystectomy [ ]c) Other surgical procedure(24) [ ]d) Percutaneous or endoscopic ultrasound-guided cholecystostomy The original [facility] content created by [facility] has been revised. The portions of the content which have been revised are identified through the use of italic text or in bold, and [facility] has neither reviewed nor approved the modified material. All other unmodified content is copyright [facility]. Please see references footnoted in the original [facility] edition 2016 Admit Criteria Met?: Yes
[2016-12-12] MEDS: HYDROmorphone 1 mg/mL 1mL Syr IVP PRN ×5 (01:09→20:39)
[2016-12-12] MEDS: Piperacillin/Tazobact 2.25 gm in 0.9% NS 50 ML IV SCH ×3 (04:59→20:39)
[2016-12-12 06:41] LABS: % BASOPHILS 2.3 % (0.0-2.0); % EOSINOPHILS 4.4 % (0.0-5.0); % LYMPHOCYTES 12.4 % (20.0-50.0); % MONOCYTES 7.2 % (2.0-10.0); % NEUTROPHILS 73.7 % (40.0-80.0); HEMATOCRIT 35.7 % (39.0-49.0); HEMOGLOBIN 12.1 gm/dL (13.2-17.3); MEAN CELL VOLUME 89.3 fl (80-99); MEAN CORPUSCULAR HEMOGLOBIN 30.3 pg (26.0-30.0); MEAN PLATELET VOLUME 7.3 fl; NEUTROPHILE ABSOLUTE 4.2 Th/cmm (1.8-8.0); PLATELET COUNT 166 Th/cmm (150-400); RED CELL DISTRIBUTION WIDTH 17.3 % (11.5-20.0); WHITE BLOOD COUNT 5.6 Th/cmm (4.8-10.8)
[2016-12-12 06:59] LABS: ALB/GLOB RATIO 1.4 (1.0-1.8); ANION GAP 20.6 (7.0-16.0); BILIRUBIN,DIRECT 5.13 mg/dL (0.0-0.2); BILIRUBIN,TOTAL 7.1 mg/dL (0.3-1.0); BUN/CREATININE RATIO 7.2; CALCIUM SERUM 9.8 mg/dL (8.6-10.3); POTASSIUM SERUM 4.6 mEq/L (3.5-5.1)
[2016-12-12 07:06] LABS: CREATININE - SERUM 9.9 mg/dL (0.7-1.3)
--- NOTE | 2016-12-12 09:01 | General Progress Note ---
Subjective - Review of Systems Service Date: 12/12/16 Events since last encounter: awaiting HIDA and MRCP Objective - Results Result Diagrams: 12/12/16 06:30 12/12/16 06:30 Recent Labs: Laboratory Last Values WBC 5.6 Th/cmm (4.8-10.8) 12/12/16 06:30 RBC 4.00 Mil/cmm (4.30-5.70) L 12/12/16 06:30 Hgb 12.1 gm/dL (13.2-17.3) L 12/12/16 06:30 Hct 35.7 % (39.0-49.0) L 12/12/16 06:30 MCV 89.3 fl (80-99) 12/12/16 06:30 MCH 30.3 pg (26.0-30.0) H 12/12/16 06:30 MCHC Differential 34.0 pg (28.0-36.0) 12/12/16 06:30 RDW 17.3 % (11.5-20.0) 12/12/16 06:30 Plt Count 166 Th/cmm (150-400) 12/12/16 06:30 MPV 7.3 fl 12/12/16 06:30 Neutrophils % 73.7 % (40.0-80.0) 12/12/16 06:30 Lymphocytes % 12.4 % (20.0-50.0) L 12/12/16 06:30 Monocytes % 7.2 % (2.0-10.0) 12/12/16 06:30 Eosinophils % 4.4 % (0.0-5.0) 12/12/16 06:30 Basophils % 2.3 % (0.0-2.0) H 12/12/16 06:30 PT 11.0 SECONDS (9.5-11.5) 12/10/16 21:19 INR 1.06 (0.5-1.4) 12/10/16 21:19 PTT (Actin FS) 25.4 SECONDS (26.0-38.0) L 12/10/16 21:19 Sodium 132 mEq/L (136-145) L 12/12/16 06:30 Potassium 4.6 mEq/L (3.5-5.1) 12/12/16 06:30 Chloride 98 mEq/L (98-107) 12/12/16 06:30 Carbon Dioxide 18.0 mEq/L (21.0-31.0) L 12/12/16 06:30 Anion Gap 20.6 (7.0-16.0) H 12/12/16 06:30 BUN 71 mg/dL (7-25) H 12/12/16 06:30 Creatinine 9.9 mg/dL (0.7-1.3) H* 12/12/16 06:30 Est GFR ( Amer) 7.9 ml/min (>90) 12/12/16 06:30 Est GFR (Non-Af Amer) 6.5 ml/min 12/12/16 06:30 BUN/Creatinine Ratio 7.2 12/12/16 06:30 Glucose 80 mg/dL (70-105) 12/12/16 06:30 POC Glucose 73 MG/DL (70 - 105) 12/12/16 06:23 Hemoglobin A1c % 5.0 % (4.0-6.0) 12/10/16 21:19 Calcium 9.8 mg/dL (8.6-10.3) 12/12/16 06:30 Total Bilirubin 7.1 mg/dL (0.3-1.0) H 12/12/16 06:30 Direct Bilirubin 5.13 mg/dL (0.0-0.2) H 12/12/16 06:30 AST 225 U/L (13-39) H 12/12/16 06:30 ALT 286 U/L (7-52) H 12/12/16 06:30 Alkaline Phosphatase 601 U/L (34-104) H 12/12/16 06:30 Troponin I < 0.01 ng/mL (0.01-0.05) L 12/10/16 21:19 Total Protein 6.6 gm/dL (6.0-8.3) 12/12/16 06:30 Albumin 3.8 gm/dL (4.2-5.5) L 12/12/16 06:30 Globulin 2.8 gm/dL 12/12/16 06:30 Albumin/Globulin Ratio 1.4 (1.0-1.8) 12/12/16 06:30 Triglycerides 46 mg/dL (<150) 12/10/16 21:19 Cholesterol 122 mg/dL (<200) 12/10/16 21:19 LDL Cholesterol Direct 30 mg/dL (75-193) L 12/10/16 21:19 HDL Cholesterol 71 mg/dL (23-92) 12/10/16 21:19 Amylase 127 U/L (29-103) H 12/11/16 05:05 Lipase 52 U/L (11-82) 12/11/16 05:05 TSH 6.49 uIU/ml (0.34-5.60) H 12/10/16 21:19 Urine Source CLEAN C 12/11/16 07:40 Urine Color YELLOW 12/11/16 07:40 Urine Clarity H (CLEAR) 12/11/16 07:40 Urine pH 7.0 (4.6 - 8.0) 12/11/16 07:40 Ur Specific [place] 1.010 (1.005-1.030) 12/11/16 07:40 Urine Protein 100 mg/dL (NEGATIVE) H 12/11/16 07:40 Urine Glucose (UA) 250 mg/dL (NEGATIVE) H 12/11/16 07:40 Urine Ketones NEGATIVE mg/dL (NEGATIVE) 12/11/16 07:40 Urine Blood SMALL (NEGATIVE) H 12/11/16 07:40 Urine Nitrate NEGATIVE (NEGATIVE) 12/11/16 07:40 Urine Bilirubin NEGATIVE (NEGATIVE) 12/11/16 07:40 Urine Urobilinogen 0.2 E.U./dL (0.2 - 1.0) 12/11/16 07:40 Ur Leukocyte Esterase NEGATIVE (NEGATIVE) 12/11/16 07:40 Urine RBC 0-2 /hpf (0-5) H 12/11/16 07:40 Urine WBC 0-2 /hpf (0-5) 12/11/16 07:40 Ur Epithelial Cells OCCASIONAL /lpf (FEW) 12/11/16 07:40 Urine Bacteria NONE SEEN /hpf (NONE SEEN) 12/11/16 07:40 - Physical Exam Vitals and I&O: Vital Signs Temp 98.6 F 12/12/16 04:00 Pulse 89 12/12/16 04:00 Resp 18 12/12/16 04:00 BP 148/83 12/12/16 04:00 Pulse Ox 97 12/12/16 04:00 Intake & Output 12/11/16 12/12/16 12/12/16 18:59 06:59 18:59 Intake Total 50 250 Balance 50 250 Weight (lbs) 47.174 kg Intake: Intake, IV Amount 50 100 Piperacillin Sodium/ 50 100 Tazobact 2.25 gm In Sodium Chloride 0.9% 50 ml @ 100 mls/hr IV Q8HR [facility] Rx#:[id number] Oral 150 Other: # Voids 4 Active Medications: Current Medications Hydromorphone HCl (Dilaudid) 1 mg IVP Q4HR PRN PRN Reason: Pain (Severe) Stop: 02/09/17 15:12 Last Admin: 12/12/16 08:22 Dose: 1 mg Piperacillin Sod/Tazobactam (Sod 2.25 gm/ Sodium Chloride) 50 mls @ 100 mls/hr IV Q8HR [facility] Stop: 02/09/17 01:44 Last Infusion: 12/12/16 05:29 Dose: Infused Dextrose/Sodium Chloride (D5-0.45ns) 1,000 mls @ 40 mls/hr IV .Q24H [facility] Stop: 02/10/17 06:50 Insulin Aspart (Novolog Insulin Sliding Scale) 0 units SUBQ ACHS [facility] PRN Reason: Protocol Stop: 02/09/17 07:29 Last Admin: 12/11/16 21:05 Dose: Not Given Levetiracetam (Keppra) 500 mg PO BID [facility] Stop: 02/09/17 08:59 Last Admin: 12/11/16 16:38 Dose: 500 mg Miscellaneous (Zosyn Iv Per Pharmacy) 1 ea MC PRN PRN PRN Reason: PROTOCOL Stop: 02/09/17 04:59 Ondansetron HCl (Zofran) 4 mg IV Q6HR PRN PRN Reason: Nausea / Vomiting Stop: 02/09/17 01:22 Sitagliptin Phosphate (Januvia) 25 mg PO DAILY [facility] Stop: 02/10/17 08:59 - Procedures Procedures: Procedures Procedure Code Date ABDOMEN SURGERY PROCEDURE 89763 10/21/16 EGD BIOPSY SINGLE/MULTIPLE 96134 02/20/16 EXCISION OF DUODENUM, ENDO, DIAGN [id number] 02/20/16 EXCISION OF STOMACH, PYLORUS, ENDO, DIAGN [id number] 02/20/16 INTRODUCTION OF SERUM/TOX/VACCINE INTO MUSCLE, PERC APPROACH [id number] 11/05/16 PERFORMANCE OF URINARY FILTRATION, MULTIPLE [id number] 10/21/16 PERFORMANCE OF URINARY FILTRATION, SINGLE [id number] 11/05/16 RELEASE GREATER OMENTUM, OPEN APPROACH [id number] 10/21/16 RELEASE LIVER, OPEN APPROACH [id number] 10/21/16 REMOVAL OF GALLBLADDER 03896 10/21/16 RESECTION OF GALLBLADDER, OPEN APPROACH [id number] 10/21/16 TRANSFUSE NONAUT RED BLOOD CELLS IN PERIPH VEIN, PERC 97798I0 11/05/16 Assessment/Plan - Problem List Patient Problems: All Active Problems NOT FEELING GOOD WITH NAUSEA (Acute) The administrative codes within the [employer] content you are accessing may have as of 02/06/2016. Please contact your IT Dept/Help Desk and request the latest Regulatory release be installed. IT Dept/Help Desk- Please refer to our FAQ page ([email or web address]) or contact [employer] Customer Support at [email or web address] (Acute ~02/20/16) WEAKNESS WITH RIGHT LOWER QUAD PAIN (Acute) WEAKNESS WITH RIGHT LOWER QUAD PAIN (Acute)
[2016-12-12] MEDS: INSULIN ASPART SLIDING SCALE 100 UNITS/ML UNIT SUBQ SCH ×4 (09:12→20:47)
--- NOTE | 2016-12-12 09:48 | Internal Medicine Prog Note ---
Internal Medicine Subjective - Subjective Patient seen and examined:: with staff, chart reviewed Patient is:: awake, interactive, in bed Patient Complaints of:: other (abdominal pain and poor appetite.) Per staff patient has:: no adverse event Internal Medicine Objective - Results Result Diagrams: 12/12/16 06:30 12/12/16 06:30 Recent Labs: Laboratory Last Values WBC 5.6 Th/cmm (4.8-10.8) 12/12/16 06:30 RBC 4.00 Mil/cmm (4.30-5.70) L 12/12/16 06:30 Hgb 12.1 gm/dL (13.2-17.3) L 12/12/16 06:30 Hct 35.7 % (39.0-49.0) L 12/12/16 06:30 MCV 89.3 fl (80-99) 12/12/16 06:30 MCH 30.3 pg (26.0-30.0) H 12/12/16 06:30 MCHC Differential 34.0 pg (28.0-36.0) 12/12/16 06:30 RDW 17.3 % (11.5-20.0) 12/12/16 06:30 Plt Count 166 Th/cmm (150-400) 12/12/16 06:30 MPV 7.3 fl 12/12/16 06:30 Neutrophils % 73.7 % (40.0-80.0) 12/12/16 06:30 Lymphocytes % 12.4 % (20.0-50.0) L 12/12/16 06:30 Monocytes % 7.2 % (2.0-10.0) 12/12/16 06:30 Eosinophils % 4.4 % (0.0-5.0) 12/12/16 06:30 Basophils % 2.3 % (0.0-2.0) H 12/12/16 06:30 PT 11.0 SECONDS (9.5-11.5) 12/10/16 21:19 INR 1.06 (0.5-1.4) 12/10/16 21:19 PTT (Actin FS) 25.4 SECONDS (26.0-38.0) L 12/10/16 21:19 Sodium 132 mEq/L (136-145) L 12/12/16 06:30 Potassium 4.6 mEq/L (3.5-5.1) 12/12/16 06:30 Chloride 98 mEq/L (98-107) 12/12/16 06:30 Carbon Dioxide 18.0 mEq/L (21.0-31.0) L 12/12/16 06:30 Anion Gap 20.6 (7.0-16.0) H 12/12/16 06:30 BUN 71 mg/dL (7-25) H 12/12/16 06:30 Creatinine 9.9 mg/dL (0.7-1.3) H* 12/12/16 06:30 Est GFR ( Amer) 7.9 ml/min (>90) 12/12/16 06:30 Est GFR (Non-Af Amer) 6.5 ml/min 12/12/16 06:30 BUN/Creatinine Ratio 7.2 12/12/16 06:30 Glucose 80 mg/dL (70-105) 12/12/16 06:30 POC Glucose 73 MG/DL (70 - 105) 12/12/16 06:23 Hemoglobin A1c % 5.0 % (4.0-6.0) 12/10/16 21:19 Calcium 9.8 mg/dL (8.6-10.3) 12/12/16 06:30 Total Bilirubin 7.1 mg/dL (0.3-1.0) H 12/12/16 06:30 Direct Bilirubin 5.13 mg/dL (0.0-0.2) H 12/12/16 06:30 AST 225 U/L (13-39) H 12/12/16 06:30 ALT 286 U/L (7-52) H 12/12/16 06:30 Alkaline Phosphatase 601 U/L (34-104) H 12/12/16 06:30 Troponin I < 0.01 ng/mL (0.01-0.05) L 12/10/16 21:19 Total Protein 6.6 gm/dL (6.0-8.3) 12/12/16 06:30 Albumin 3.8 gm/dL (4.2-5.5) L 12/12/16 06:30 Globulin 2.8 gm/dL 12/12/16 06:30 Albumin/Globulin Ratio 1.4 (1.0-1.8) 12/12/16 06:30 Triglycerides 46 mg/dL (<150) 12/10/16 21:19 Cholesterol 122 mg/dL (<200) 12/10/16 21:19 LDL Cholesterol Direct 30 mg/dL (75-193) L 12/10/16 21:19 HDL Cholesterol 71 mg/dL (23-92) 12/10/16 21:19 Amylase 127 U/L (29-103) H 12/11/16 05:05 Lipase 52 U/L (11-82) 12/11/16 05:05 TSH 6.49 uIU/ml (0.34-5.60) H 12/10/16 21:19 Urine Source CLEAN C 12/11/16 07:40 Urine Color YELLOW 12/11/16 07:40 Urine Clarity H (CLEAR) 12/11/16 07:40 Urine pH 7.0 (4.6 - 8.0) 12/11/16 07:40 Ur Specific [place] 1.010 (1.005-1.030) 12/11/16 07:40 Urine Protein 100 mg/dL (NEGATIVE) H 12/11/16 07:40 Urine Glucose (UA) 250 mg/dL (NEGATIVE) H 12/11/16 07:40 Urine Ketones NEGATIVE mg/dL (NEGATIVE) 12/11/16 07:40 Urine Blood SMALL (NEGATIVE) H 12/11/16 07:40 Urine Nitrate NEGATIVE (NEGATIVE) 12/11/16 07:40 Urine Bilirubin NEGATIVE (NEGATIVE) 12/11/16 07:40 Urine Urobilinogen 0.2 E.U./dL (0.2 - 1.0) 12/11/16 07:40 Ur Leukocyte Esterase NEGATIVE (NEGATIVE) 12/11/16 07:40 Urine RBC 0-2 /hpf (0-5) H 12/11/16 07:40 Urine WBC 0-2 /hpf (0-5) 12/11/16 07:40 Ur Epithelial Cells OCCASIONAL /lpf (FEW) 12/11/16 07:40 Urine Bacteria NONE SEEN /hpf (NONE SEEN) 12/11/16 07:40 - Physical Exam Vitals and I&O: Vital Signs Temp 98.6 F 12/12/16 04:00 Pulse 89 12/12/16 04:00 Resp 18 12/12/16 04:00 BP 148/83 12/12/16 04:00 Pulse Ox 97 12/12/16 04:00 Intake & Output 12/11/16 12/12/16 12/12/16 18:59 06:59 18:59 Intake Total 50 250 Balance 50 250 Weight (lbs) 47.174 kg Intake: Intake, IV Amount 50 100 Piperacillin Sodium/ 50 100 Tazobact 2.25 gm In Sodium Chloride 0.9% 50 ml @ 100 mls/hr IV Q8HR [facility] Rx#:[id number] Oral 150 Other: # Voids 4 Active Medications: Current Medications Hydromorphone HCl (Dilaudid) 1 mg IVP Q4HR PRN PRN Reason: Pain (Severe) Stop: 02/09/17 15:12 Last Admin: 12/12/16 08:22 Dose: 1 mg Piperacillin Sod/Tazobactam (Sod 2.25 gm/ Sodium Chloride) 50 mls @ 100 mls/hr IV Q8HR [facility] Stop: 02/09/17 01:44 Last Infusion: 12/12/16 05:29 Dose: Infused Dextrose/Sodium Chloride (D5-0.45ns) 1,000 mls @ 40 mls/hr IV .Q24H [facility] Stop: 02/10/17 06:50 Insulin Aspart (Novolog Insulin Sliding Scale) 0 units SUBQ ACHS [facility] PRN Reason: Protocol Stop: 02/09/17 07:29 Last Admin: 12/12/16 09:12 Dose: Not Given Levetiracetam (Keppra) 500 mg PO BID [facility] Stop: 02/09/17 08:59 Last Admin: 12/12/16 09:12 Dose: Not Given Miscellaneous (Zosyn Iv Per Pharmacy) 1 ea [facility] PRN PRN PRN Reason: PROTOCOL Stop: 02/09/17 04:59 Ondansetron HCl (Zofran) 4 mg IV Q6HR PRN PRN Reason: Nausea / Vomiting Stop: 02/09/17 01:22 Sitagliptin Phosphate (Januvia) 25 mg PO DAILY [facility] Stop: 02/10/17 08:59 Last Admin: 12/12/16 09:12 Dose: Not Given General: weak, alert, thin, other (bilateral hearing aid) HEENT: NC/AT, PERRLA, EOMI Neck: Supple, No JVD, No thyromegaly Lungs: CTAB Cardiovascular: RRR, Normal S1, Normal S2 Abdomen: soft, other (multiple surgical scars with third tenderness over right upper quadrant and right lower quadrant.) Extremities: other (AV graft on right upper extremity with good bruit.) Neurological: no change - Procedures Procedures: Procedures Procedure Code Date ABDOMEN SURGERY PROCEDURE 46882 10/21/16 EGD BIOPSY SINGLE/MULTIPLE 50864 02/20/16 EXCISION OF DUODENUM, ENDO, DIAGN [id number] 02/20/16 EXCISION OF STOMACH, PYLORUS, ENDO, DIAGN [id number] 02/20/16 INTRODUCTION OF SERUM/TOX/VACCINE INTO MUSCLE, PERC APPROACH [id number] 11/05/16 PERFORMANCE OF URINARY FILTRATION, MULTIPLE [id number] 10/21/16 PERFORMANCE OF URINARY FILTRATION, SINGLE [id number] 11/05/16 RELEASE GREATER OMENTUM, OPEN APPROACH [id number] 10/21/16 RELEASE LIVER, OPEN APPROACH [id number] 10/21/16 REMOVAL OF GALLBLADDER [id number] 10/21/16 RESECTION OF GALLBLADDER, OPEN APPROACH [id number] 10/21/16 TRANSFUSE NONAUT RED BLOOD CELLS IN PERIPH VEIN, PERC [id number] 11/05/16 Internal Medicine Assmt/Plan - Assessment Assessment: Obstructive jaundice end-stage renal disease on hemodialysis Diabetes mellitus Seizure disorder Diffuse abdominal pain Status post exploratory laparotomy for cholelithiasis with cholecystectomy a few weeks ago Bilateral hearing loss. Anemia of chronic kidney disease - Plan Plan: Pain control. MRCP. Hemodialysis. Monitor blood sugar blood pressure. General nursing care. Cardiac monitoring. Follow-up lab. Seizure precautions. Seizure medications. Chronic management of his medical illnesses. Follow-up consultants recommendation. Care plan reviewed and discussed with staff.
--- NOTE | 2016-12-12 14:43 | Consultation ---
Consult Note - Consult Note Service Date: 12/12/16 Referring Physician: Keaton Hummel Consult Note: PHYSICIAN Consultation Note: Date of Admission: 12/11/16 Purpose of Consultation: ESRD Chief Complaint: ABDOMINAL PAIN History of Present Illness: Patient YOVANI CAPELLAN was admitted to location Medical[facility] Unit I with ABDOMINAL PAIN. Patient s/p rita villeda admitted with abdominal pain. I was asked to see the patient for continuation of hemodialysis support. Past Medical History: ESRD DM TYPE2 ANEMIA HTN COGNITIVE IMPAIRMENT SEIZURE DISORDER AVF placement Allergies Allergy/AdvReac Type Severity Reaction Status Date / Time No Known Allergies Allergy Verified 12/10/16 20:50 Vital Signs Temp 97.4 F 12/12/16 12:00 Pulse 92 12/12/16 12:00 Resp 20 12/12/16 12:00 BP 95/57 12/12/16 12:00 Pulse Ox 97 12/12/16 12:00 Intake & Output 12/11/16 12/12/16 12/12/16 18:59 06:59 18:59 Intake Total 50 250 Balance 50 250 Weight (lbs) 47.174 kg Intake: Intake, IV Amount 50 100 Piperacillin Sodium/ 50 100 Tazobact 2.25 gm In Sodium Chloride 0.9% 50 ml @ 100 mls/hr IV Q8HR [facility] Rx#:[id number] Oral 150 Other: # Voids 4 Laboratory Results - last 24 hr 12/11/16 12/11/16 12/11/16 07:40 15:36 21:02 WBC RBC Hgb Hct MCV MCH MCHC Differential RDW Plt Count MPV Neutrophils % Lymphocytes % Monocytes % Eosinophils % Basophils % Sodium Potassium Chloride Carbon Dioxide Anion Gap BUN Creatinine Est GFR ( Amer) Est GFR (Non-Af Amer) BUN/Creatinine Ratio Glucose POC Glucose 93 83 Calcium Total Bilirubin Direct Bilirubin AST ALT Alkaline Phosphatase Total Protein Albumin Globulin Albumin/Globulin Ratio Urine Source CLEAN C Urine RBC 0-2 H Urine WBC 0-2 Ur Epithelial Cells OCCASIONAL Urine Bacteria NONE SEEN 12/12/16 12/12/16 12/12/16 06:23 06:30 06:30 WBC 5.6 RBC 4.00 L Hgb 12.1 L Hct 35.7 L MCV 89.3 MCH 30.3 H MCHC Differential 34.0 RDW 17.3 Plt Count 166 MPV 7.3 Neutrophils % 73.7 Lymphocytes % 12.4 L Monocytes % 7.2 Eosinophils % 4.4 Basophils % 2.3 H Sodium 132 L Potassium 4.6 Chloride 98 Carbon Dioxide 18.0 L Anion Gap 20.6 H BUN 71 H Creatinine 9.9 H* Est GFR ( Amer) 7.9 Est GFR (Non-Af Amer) 6.5 BUN/Creatinine Ratio 7.2 Glucose 80 POC Glucose 73 Calcium 9.8 Total Bilirubin 7.1 H Direct Bilirubin 5.13 H AST 225 H ALT 286 H Alkaline Phosphatase 601 H Total Protein 6.6 Albumin 3.8 L Globulin 2.8 Albumin/Globulin Ratio 1.4 Urine Source Urine RBC Urine WBC Ur Epithelial Cells Urine Bacteria 12/12/16 12:00 WBC RBC Hgb Hct MCV MCH MCHC Differential RDW Plt Count MPV Neutrophils % Lymphocytes % Monocytes % Eosinophils % Basophils % Sodium Potassium Chloride Carbon Dioxide Anion Gap BUN Creatinine Est GFR ( Amer) Est GFR (Non-Af Amer) BUN/Creatinine Ratio Glucose POC Glucose 124 H Calcium Total Bilirubin Direct Bilirubin AST ALT Alkaline Phosphatase Total Protein Albumin Globulin Albumin/Globulin Ratio Urine Source Urine RBC Urine WBC Ur Epithelial Cells Urine Bacteria Home Medication Medication Instructions Recorded Type Ferric Citrate [Auryxia] 2 tab PO TID 12/10/16 History Levetiracetam [Keppra] 500 mg PO BID 12/10/16 History Sitagliptin Phosphate [Januvia] 25 mg PO DAILY 12/10/16 History Current Medications Generic Name Dose Route Start Last Admin Trade Name Freq PRN Reason Stop Dose Admin Hydromorphone HCl 1 mg 12/11/16 15:13 12/12/16 08:22 Dilaudid IVP 02/09/17 15:12 1 mg Q4HR PRN Administration Pain (Severe) Piperacillin Sod/Tazobactam 50 mls @ 100 mls/hr 12/11/16 01:45 12/12/16 05:29 Sod 2.25 gm/ Sodium Chloride IV 02/09/17 01:44 Infused Q8HR [facility] Infusion Dextrose/Sodium Chloride 1,000 mls @ 40 mls/hr 12/12/16 06:51 D5-0.45ns IV 02/10/17 06:50 .Q24H [facility] Insulin Aspart 0 units 12/11/16 07:30 12/12/16 12:32 Novolog Insulin Sliding Scale SUBQ 02/09/17 07:29 Not Given ACHS [facility] Protocol Levetiracetam 500 mg 12/11/16 09:00 12/12/16 09:12 Keppra PO 02/09/17 08:59 Not Given BID [facility] Miscellaneous 1 ea 12/11/16 05:00 Zosyn Iv Per Pharmacy MC 02/09/17 04:59 PRN PRN PROTOCOL Ondansetron HCl 4 mg 12/11/16 01:23 Zofran IV 02/09/17 01:22 Q6HR PRN Nausea / Vomiting Sitagliptin Phosphate 25 mg 12/12/16 09:00 12/12/16 09:12 Januvia PO 02/10/17 08:59 Not Given DAILY [facility] Review of Systems: A 12 point ROS was reviewed with the pertinent positive and negatives noted in the HPI. Social History Smoking Status Smoker, status unknown Drug Use No Alcohol Use No Family Medical History Family Medical History Start: 12/11/16 01: 04 Freq: ONCE Status: Active Document 12/11/16 01:04 STEWART (Rec: 12/11/16 02:19 STEWART [id number]) Family Medical History Mother Living Status Still Living Physical Exam: General: In bed no distress HEENT: [place], EOMI, Deaf wearing hearing aid Cardio: S1 s2 RRR Respiratory: Clear on both side Abdominal: Soft, slight tenderness on deep palpation Genital/Urinary: Extremities: no edema Neurological: awake and alert x3 Assessment: Abdominal pain ESRD DM TYPE2 ANEMIA HTN COGNITIVE IMPAIRMENT SEIZURE DISORDER Plan: ABDOMINAL PAIN IS BEING WORKED UP BY SURGERY AND GI FROM NEPHROLOGY WILL CONTINUE TO PROVIDE HD SUPPORT Bill Zapata Farhad, M.D. [id number]
[2016-12-12] MEDS: D5-0.45NS 1,000 ML IV SCH (15:09)
--- NOTE | 2016-12-12 15:18 | History & Physical ---
ADMIT DATE: 12/11/2016 CHIEF COMPLAINT: Abdominal pain. HISTORY OF PRESENT ILLNESS: A 31-year-old male with past medical history significant for end-stage renal disease and diabetes, presents with abdominal pain associated with nausea. The patient was advised to go to the Emergency Room, found to have elevated LFTs and has been admitted for further treatment and care. The patient is seen in the hospital bed. He is awake and alert, complains of epigastric pain, able to tolerate liquid diet. Approximately a month ago, the patient underwent a cholecystectomy for similar presentation. PAST MEDICAL HISTORY: The patient has history of end-stage renal disease, on hemodialysis; diabetes mellitus; seizure disorder; chronic anemia and recurrent abdominal pain. MEDICATIONS: The patient takes Januvia, Keppra, and iron. ALLERGIES: No known drug allergies. SOCIAL HISTORY: No tobacco, alcohol or illicit drug use. FAMILY HISTORY: Noncontributory. REVIEW OF SYSTEM: IMMUNOLOGIC: No recurrent infection. CARDIOVASCULAR: The patient has no heart disease or hypertension. GASTROINTESTINAL: As above. ENDOCRINE: The patient is diabetic. No thyroid disorder. NEUROLOGIC: No seizure or stroke. The patient has some hearing impairment. PHYSICAL EXAMINATION: GENERAL: The patient is awake and alert, in no acute distress. VITAL SIGNS: Temperature 97.6, pulse 91, respirations 18, blood pressure 144/86. HEENT: Pupils equally round, anicteric sclerae. NECK: Supple. No JVD, mass or bruit. LUNGS: Clear to auscultation. HEART: S1 and S2, regular rate and rhythm. ABDOMEN: Soft, epigastric tenderness ____ positive bowel sounds. EXTREMITIES: No clubbing, cyanosis, or edema. The patient has AV graft in right arm. LABORATORY DATA: WBC on admission is 9.0, hemoglobin 12.7. Sodium is 131, potassium 5.5, BUN 59, creatinine 8.4, total bilirubin is 2.8. AST is 330, ALT is 340 and alk phos is 522. Lipase is normal. IMPRESSION: 1. Abdominal pain. 2. Elevated liver function tests. 3. History of cholecystectomy. 4. End-stage renal disease. 5. Diabetes mellitus. 6. Chronic anemia. 7. Hyponatremia. PLAN: Admit to telemetry. Keep the patient on liquid diet, empirically started on IV Zosyn. We will control blood sugar with regular insulin sliding scale. GI, Surgical and Renal consults requested. I discussed the patient's condition and pain management with the patient's mother. [facility]# [id number]
[2016-12-13] MEDS: HYDROmorphone 1 mg/mL 1mL Syr IVP PRN ×5 (00:52→20:16)
[2016-12-13] MEDS: Piperacillin/Tazobact 2.25 gm in 0.9% NS 50 ML IV SCH ×3 (05:43→20:34)
[2016-12-13 06:16] LABS: % BASOPHILS 0.1 % (0.0-2.0); % EOSINOPHILS 8.4 % (0.0-5.0); % LYMPHOCYTES 25.8 % (20.0-50.0); % MONOCYTES 9.4 % (2.0-10.0); % NEUTROPHILS 56.3 % (40.0-80.0); HEMATOCRIT 33.8 % (39.0-49.0); HEMOGLOBIN 11.6 gm/dL (13.2-17.3); MEAN CELL VOLUME 88.2 fl (80-99); MEAN CORPUSCULAR HEMOGLOBIN 30.3 pg (26.0-30.0); MEAN CORPUSCULAR HGB CONC 34.3 pg (28.0-36.0); MEAN PLATELET VOLUME 7.8 fl; NEUTROPHILE ABSOLUTE 2.4 Th/cmm (1.8-8.0); PLATELET COUNT 136 Th/cmm (150-400); RED BLOOD COUNT 3.83 Mil/cmm (4.30-5.70); RED CELL DISTRIBUTION WIDTH 17.3 % (11.5-20.0)
[2016-12-13 06:24] LABS: WHITE BLOOD COUNT 4.3 Th/cmm (4.8-10.8)
[2016-12-13 06:25] LABS: INR 1.11 (0.5-1.4); PROTHROMBIN TIME (TEST) 11.6 SECONDS (9.5-11.5)
[2016-12-13] MEDS: D5-0.45NS 1,000 ML IV SCH (06:35)
[2016-12-13 06:47] LABS: ALB/GLOB RATIO 1.3 (1.0-1.8); ANION GAP 13.9 (7.0-16.0); BILIRUBIN,TOTAL 7.6 mg/dL (0.3-1.0); BUN/CREATININE RATIO 5.6; CALCIUM SERUM 9.3 mg/dL (8.6-10.3); CARBON DIOXIDE 23.5 mEq/L (21.0-31.0); POTASSIUM SERUM 3.4 mEq/L (3.5-5.1)
[2016-12-13] MEDS: INSULIN ASPART SLIDING SCALE 100 UNITS/ML UNIT SUBQ SCH ×4 (07:09→20:35)
--- NOTE | 2016-12-13 08:05 | Diagnostic Imaging Report ---
Radionuclide biliary scan (HIDA scan) HISTORY: Pain, status post cholecystectomy 5.3 mCi technetium labeled biliary age and was using the exam. There is normal hepatic uptake. There is essentially no hepatic clearance and excretion. No excretion into the common bile duct and small bowel. The gallbladder is not seen consistent with patient's surgical history. No other abnormal extrahepatic collections of nuclide are seen. IMPRESSION: 1. Little hepatic clearance and excretion with no visualization of the common bile duct or small bowel. Findings may be associated with hepatocellular dysfunction. Correlation with laboratory data needed. An ultrasound exam would provide for assessment of the caliber of the biliary tree. 2. Nonvisualization of the gallbladder consistent with the patient's surgical history. 3. No abnormal extrahepatic collections of nuclide
--- NOTE | 2016-12-13 09:12 | Internal Medicine Prog Note ---
Internal Medicine Subjective - Subjective Patient seen and examined:: with staff Patient is:: awake, interactive, in bed Patient Complaints of:: other (abdominal pain and poor appetite.) Per staff patient has:: no adverse event Internal Medicine Objective - Results Result Diagrams: 12/13/16 05:35 12/13/16 05:35 Recent Labs: Laboratory Last Values WBC 4.3 Th/cmm (4.8-10.8) L D 12/13/16 05:35 RBC 3.83 Mil/cmm (4.30-5.70) L 12/13/16 05:35 Hgb 11.6 gm/dL (13.2-17.3) L 12/13/16 05:35 Hct 33.8 % (39.0-49.0) L 12/13/16 05:35 MCV 88.2 fl (80-99) 12/13/16 05:35 MCH 30.3 pg (26.0-30.0) H 12/13/16 05:35 MCHC Differential 34.3 pg (28.0-36.0) 12/13/16 05:35 RDW 17.3 % (11.5-20.0) 12/13/16 05:35 Plt Count 136 Th/cmm (150-400) L 12/13/16 05:35 MPV 7.8 fl 12/13/16 05:35 Neutrophils % 56.3 % (40.0-80.0) 12/13/16 05:35 Lymphocytes % 25.8 % (20.0-50.0) 12/13/16 05:35 Monocytes % 9.4 % (2.0-10.0) 12/13/16 05:35 Eosinophils % 8.4 % (0.0-5.0) H 12/13/16 05:35 Basophils % 0.1 % (0.0-2.0) 12/13/16 05:35 PT 11.6 SECONDS (9.5-11.5) H 12/13/16 05:35 INR 1.11 (0.5-1.4) 12/13/16 05:35 PTT (Actin FS) 25.4 SECONDS (26.0-38.0) L 12/10/16 21:19 Sodium 134 mEq/L (136-145) L 12/13/16 05:35 Potassium 3.4 mEq/L (3.5-5.1) L 12/13/16 05:35 Chloride 100 mEq/L (98-107) 12/13/16 05:35 Carbon Dioxide 23.5 mEq/L (21.0-31.0) 12/13/16 05:35 Anion Gap 13.9 (7.0-16.0) 12/13/16 05:35 BUN 39 mg/dL (7-25) H 12/13/16 05:35 Creatinine 7.0 mg/dL (0.7-1.3) H* 12/13/16 05:35 Est GFR ( Amer) 11.8 ml/min (>90) 12/13/16 05:35 Est GFR (Non-Af Amer) 9.7 ml/min 12/13/16 05:35 BUN/Creatinine Ratio 5.6 12/13/16 05:35 Glucose 83 mg/dL (70-105) 12/13/16 05:35 POC Glucose 100 MG/DL (70 - 105) 12/12/16 20:46 Hemoglobin A1c % 5.0 % (4.0-6.0) 12/10/16 21:19 Calcium 9.3 mg/dL (8.6-10.3) 12/13/16 05:35 Total Bilirubin 7.6 mg/dL (0.3-1.0) H 12/13/16 05:35 Direct Bilirubin 5.13 mg/dL (0.0-0.2) H 12/12/16 06:30 AST 191 U/L (13-39) H 12/13/16 05:35 ALT 240 U/L (7-52) H 12/13/16 05:35 Alkaline Phosphatase 605 U/L (34-104) H 12/13/16 05:35 Troponin I < 0.01 ng/mL (0.01-0.05) L 12/10/16 21:19 Total Protein 6.0 gm/dL (6.0-8.3) 12/13/16 05:35 Albumin 3.4 gm/dL (4.2-5.5) L 12/13/16 05:35 Globulin 2.6 gm/dL 12/13/16 05:35 Albumin/Globulin Ratio 1.3 (1.0-1.8) 12/13/16 05:35 Triglycerides 46 mg/dL (<150) 12/10/16 21:19 Cholesterol 122 mg/dL (<200) 12/10/16 21:19 LDL Cholesterol Direct 30 mg/dL (75-193) L 12/10/16 21:19 HDL Cholesterol 71 mg/dL (23-92) 12/10/16 21:19 Amylase 127 U/L (29-103) H 12/11/16 05:05 Lipase 52 U/L (11-82) 12/11/16 05:05 TSH 6.49 uIU/ml (0.34-5.60) H 12/10/16 21:19 Urine Source CLEAN C 12/11/16 07:40 Urine Color YELLOW 12/11/16 07:40 Urine Clarity H (CLEAR) 12/11/16 07:40 Urine pH 7.0 (4.6 - 8.0) 12/11/16 07:40 Ur Specific [place] 1.010 (1.005-1.030) 12/11/16 07:40 Urine Protein 100 mg/dL (NEGATIVE) H 12/11/16 07:40 Urine Glucose (UA) 250 mg/dL (NEGATIVE) H 12/11/16 07:40 Urine Ketones NEGATIVE mg/dL (NEGATIVE) 12/11/16 07:40 Urine Blood SMALL (NEGATIVE) H 12/11/16 07:40 Urine Nitrate NEGATIVE (NEGATIVE) 12/11/16 07:40 Urine Bilirubin NEGATIVE (NEGATIVE) 12/11/16 07:40 Urine Urobilinogen 0.2 E.U./dL (0.2 - 1.0) 12/11/16 07:40 Ur Leukocyte Esterase NEGATIVE (NEGATIVE) 12/11/16 07:40 Urine RBC 0-2 /hpf (0-5) H 12/11/16 07:40 Urine WBC 0-2 /hpf (0-5) 12/11/16 07:40 Ur Epithelial Cells OCCASIONAL /lpf (FEW) 12/11/16 07:40 Urine Bacteria NONE SEEN /hpf (NONE SEEN) 12/11/16 07:40 - Physical Exam Vitals and I&O: Vital Signs Temp 98.2 F 12/13/16 07:33 Pulse 59 12/13/16 07:33 Resp 18 12/13/16 08:39 BP 100/59 08/08/17 07:33 Pulse Ox 96 12/13/16 07:33 Intake & Output 12/12/16 12/13/16 12/13/16 18:59 06:59 18:59 Intake Total 50 817.333 Balance 50 817.333 Weight (lbs) 54.431 kg Intake: Intake, IV Amount 50 717.333 D5-0.45NS 1,000 ml @ 40 617.333 mls/hr IV .Q24H [facility] Rx#: [id number] Piperacillin Sodium/ 50 100 Tazobact 2.25 gm In Sodium Chloride 0.9% 50 ml @ 100 mls/hr IV Q8HR [facility] Rx#:[id number] Oral 100 Other: # Voids 1 Active Medications: Current Medications Hydromorphone HCl (Dilaudid) 1 mg IVP Q4HR PRN PRN Reason: Pain (Severe) Stop: 02/09/17 15:12 Last Admin: 12/13/16 05:44 Dose: 1 mg Piperacillin Sod/Tazobactam (Sod 2.25 gm/ Sodium Chloride) 50 mls @ 100 mls/hr IV Q8HR [facility] Stop: 02/09/17 01:44 Last Infusion: 12/13/16 06:13 Dose: Infused Dextrose/Sodium Chloride (D5-0.45ns) 1,000 mls @ 40 mls/hr IV .Q24H [facility] Stop: 02/10/17 06:50 Last Admin: 12/13/16 06:35 Dose: 40 mls/hr Insulin Aspart (Novolog Insulin Sliding Scale) 0 units SUBQ ACHS RADHA PRN Reason: Protocol Stop: 02/09/17 07:29 Last Admin: 12/13/16 07:09 Dose: Not Given Levetiracetam (Keppra) 500 mg PO BID [facility] Stop: 02/09/17 08:59 Last Admin: 12/13/16 08:38 Dose: Not Given Miscellaneous (Zosyn Iv Per Pharmacy) 1 ea MC PRN PRN PRN Reason: PROTOCOL Stop: 02/09/17 04:59 Ondansetron HCl (Zofran) 4 mg IV Q6HR PRN PRN Reason: Nausea / Vomiting Stop: 02/09/17 01:22 Sitagliptin Phosphate (Januvia) 25 mg PO DAILY [facility] Stop: 02/10/17 08:59 Last Admin: 12/13/16 08:38 Dose: Not Given General: weak, alert, thin, other (bilateral hearing aid) HEENT: NC/AT, PERRLA, EOMI Neck: Supple, No JVD, No thyromegaly Lungs: CTAB Cardiovascular: RRR, Normal S1, Normal S2 Abdomen: soft, other (multiple surgical scars with third tenderness over right upper quadrant and right lower quadrant.) Extremities: other (AV graft on right upper extremity with good bruit.) Neurological: no change - Procedures Procedures: Procedures Procedure Code Date ABDOMEN SURGERY PROCEDURE 28047 10/21/16 EGD BIOPSY SINGLE/MULTIPLE 96648 02/20/16 EXCISION OF DUODENUM, ENDO, DIAGN [id number] 02/20/16 EXCISION OF STOMACH, PYLORUS, ENDO, DIAGN [id number] 02/20/16 INTRODUCTION OF SERUM/TOX/VACCINE INTO MUSCLE, PERC APPROACH [id number] 11/05/16 PERFORMANCE OF URINARY FILTRATION, MULTIPLE [id number] 10/21/16 PERFORMANCE OF URINARY FILTRATION, SINGLE [id number] 11/05/16 RELEASE GREATER OMENTUM, OPEN APPROACH [id number] 10/21/16 RELEASE LIVER, OPEN APPROACH [id number] 10/21/16 REMOVAL OF GALLBLADDER 29049 10/21/16 RESECTION OF GALLBLADDER, OPEN APPROACH [id number] 10/21/16 TRANSFUSE NONAUT RED BLOOD CELLS IN PERIPH VEIN, PERC 61671H5 11/05/16 Internal Medicine Assmt/Plan - Assessment Assessment: Obstructive jaundice end-stage renal disease on hemodialysis Diabetes mellitus Seizure disorder Diffuse abdominal pain Status post exploratory laparotomy for cholelithiasis with cholecystectomy a few weeks ago Bilateral hearing loss. Anemia of chronic kidney disease - Plan Plan: Pain control. MRCP today and decide definative treatment plan. Hemodialysis as planned. Monitor blood sugar blood pressure. General nursing care. Cardiac monitoring. Follow-up lab. Seizure precautions. Seizure medications. Chronic management of his medical illnesses. Follow-up consultants recommendation. Care plan reviewed and discussed with staff. Nutritional Asmnt/Malnutr-PDOC - Dietary Evaluation Malnutrition Findings (Please click <Entered> for more info): Nutritional Asmnt/Malnutrition Start: 12/12/16 14: 00 Text: Status: Complete Freq: Document 12/12/16 14:00 [facility] (Rec: 12/12/16 14:10 [facility] [id number]) Nutritional Asmnt/Malnutrition Patient General Information Nutritional Screening High Risk Screening Diagnosis Common bile duct dilation Pertinent Medical Hx/Surgical Hx HTN, DM, ESRD on dialysis, seizures, cholecystectomy Subjective Information Pt is a 31-year-old male admitted with chief complaint of right sided abdominal pain. RD attempted visit twice but pt was sound asleep on both occasions. Pt appears to have a small body frame but no signs of muscle or fat depletion. IBW calculated with consideration of small body frame. Per ER report, pt has had vomiting and diarrhea for several days; no current reports of GI distress. Current Diet Order/ Nutrition Support Clear liquid Patient / S.O Can Pertinent Medications D5-0.45 ns, Dilaudid, Piperacillin, Januvia Pertinent Labs (12/10) Na 133L, Glucose 185H, LDL Cholesterol 30L. (12/12) Na 131L, K 5.5H, BUN 59H, Creatinine 8.4H, Total Bilirubin 3.8H, AST 330H, ALT 340H, Alkaline Phosphatase 522H, Amylase 127H Nutritional Hx/Data Height 1.57 m Height (Calculated Centimeters) 157.5 Current Weight (lbs) 47.174 kg Weight (Calculated Kilograms) 47.2 Weight (Calculated Grams) 37733.6 Usual body Weight (lbs) 104 % Usual Body Weight 100 [place] Body Weight 106 % [place] Body Weight 98 Recent Weight Change No Weight Status Approriate GI Symptoms GI Symptoms Vomitting Diarrhea Food Allergies No Skin Integrity/Comment: Rohit 21. Skin intact. Estimated Nutritional Goals BEE in Kcals: Using Current wt Calories/Kcals/Kg Based on current wt 47.2 kg with consideration of dialysis Kcals Calculated 8098-1220 kcals/day (30-35 kcals/kg) Protein: Using Current wt Protein g/kg: Based on current wt 47.2 kg with consideration of dialysis Protein Calculated 57-71 gm/day (1.2-1.5 gm/kg) Fluid: ml Per MD/DO Nutritional Problem 1. Problem Problem Inadequate energy/protein intake related to Etiology altered GI function with vomiting and diarrhea as evidenced by Signs/Symptoms: need for clear liquid diet. Malnutrition Alert Protein-Calorie Malnutrition N/A Malnutrition Related to Morbid Obesity Malnutrition related to morbid obesity No Intervention/Recommendation Recommendations by RD Increase Calorie Intake Protein supplementation Comments 1. Recommend Boost Breeze TID with clear liquid diet to promote nutritional intake. Encourage oral intake. 2. Advance as tolerated to renal diet with Novosource Renal BID. Expected Outcomes/Goals Expected Outcomes/Goals Have pt meet at least 75% of estimated nutritional needs with acceptable tolerance. Physician Parameters for PEM Normal Weight % 90% - 110% (Normal) Body Mass Index (BMI) 18 - 24 (Mild) Serum Albumin (g/dl) 3.5 - 5.0 (Normal)
--- NOTE | 2016-12-13 09:41 | Diagnostic Imaging Report ---
Portable chest x-ray HISTORY: Shortness of breath The heart is enlarged. No focal pulmonary processes. No hilar or mediastinal abnormalities. Surgical changes along with vascular stents seen within the left axillary region. Surgical clips noted in the soft tissues adjacent to the right arm. IMPRESSION: 1. Cardiomegaly 2. No focal pulmonary processes
[2016-12-13 10:19] LABS: HEP B CORE IGM Negative (Negative); HEP C ANTIBODY 0.1 s/co ratio (0.0-0.9)
--- NOTE | 2016-12-13 11:18 | Diagnostic Imaging Report ---
Magnetic Resonance Cholepancreatography (MRCP), MRI abdomen HISTORY: Pain, recent cholecystectomy Multiple MRI sequences including 3-D high-resolution thin/thick slab, SPGR were utilized. The exam provide further delineation of the common bile duct. This is normal in caliber (3.5 mm). No intrahepatic biliary dilatation. The pancreatic duct cannot be clearly visualized. There is an approximate 5.0 x 3.0 cm round density consistent with a loculated fluid collection within the andrade hepatis region. Small amount of fluid extends about the margins of the liver. The findings appear similar to changes noted on a CT scan of December 10, 2016. No focal hepatic lesions are seen. The spleen appears normal. Atrophic kidneys seen bilaterally along with the cystic change on the right side. IMPRESSION: 1. No biliary dilatation. 2. Findings consistent with a loculated fluid collection within the andrade hepatis region along with a small amount of perihepatic fluid.
[2016-12-13] MEDS ORDERED: IOHEXOL 300MG/ML 50 ML VIAL ONE (12:29)
--- NOTE | 2016-12-13 13:05 | General Progress Note ---
Subjective - Review of Systems Service Date: 12/13/16 Events since last encounter: MRCP normal CBD LFT elevation likely from cirrhosis Objective - Results Result Diagrams: 12/13/16 05:35 12/13/16 05:35 Recent Labs: Laboratory Last Values WBC 4.3 Th/cmm (4.8-10.8) L D 12/13/16 05:35 RBC 3.83 Mil/cmm (4.30-5.70) L 12/13/16 05:35 Hgb 11.6 gm/dL (13.2-17.3) L 12/13/16 05:35 Hct 33.8 % (39.0-49.0) L 12/13/16 05:35 MCV 88.2 fl (80-99) 12/13/16 05:35 MCH 30.3 pg (26.0-30.0) H 12/13/16 05:35 MCHC Differential 34.3 pg (28.0-36.0) 12/13/16 05:35 RDW 17.3 % (11.5-20.0) 12/13/16 05:35 Plt Count 136 Th/cmm (150-400) L 12/13/16 05:35 MPV 7.8 fl 12/13/16 05:35 Neutrophils % 56.3 % (40.0-80.0) 12/13/16 05:35 Lymphocytes % 25.8 % (20.0-50.0) 12/13/16 05:35 Monocytes % 9.4 % (2.0-10.0) 12/13/16 05:35 Eosinophils % 8.4 % (0.0-5.0) H 12/13/16 05:35 Basophils % 0.1 % (0.0-2.0) 12/13/16 05:35 PT 11.6 SECONDS (9.5-11.5) H 12/13/16 05:35 INR 1.11 (0.5-1.4) 12/13/16 05:35 PTT (Actin FS) 25.4 SECONDS (26.0-38.0) L 12/10/16 21:19 Sodium 134 mEq/L (136-145) L 12/13/16 05:35 Potassium 3.4 mEq/L (3.5-5.1) L 12/13/16 05:35 Chloride 100 mEq/L (98-107) 12/13/16 05:35 Carbon Dioxide 23.5 mEq/L (21.0-31.0) 12/13/16 05:35 Anion Gap 13.9 (7.0-16.0) 12/13/16 05:35 BUN 39 mg/dL (7-25) H 12/13/16 05:35 Creatinine 7.0 mg/dL (0.7-1.3) H* 12/13/16 05:35 Est GFR ( Amer) 11.8 ml/min (>90) 12/13/16 05:35 Est GFR (Non-Af Amer) 9.7 ml/min 12/13/16 05:35 BUN/Creatinine Ratio 5.6 12/13/16 05:35 Glucose 83 mg/dL (70-105) 12/13/16 05:35 POC Glucose 77 MG/DL (70 - 105) 12/13/16 12:30 Hemoglobin A1c % 5.0 % (4.0-6.0) 12/10/16 21:19 Calcium 9.3 mg/dL (8.6-10.3) 12/13/16 05:35 Total Bilirubin 7.6 mg/dL (0.3-1.0) H 12/13/16 05:35 Direct Bilirubin 5.13 mg/dL (0.0-0.2) H 12/12/16 06:30 AST 191 U/L (13-39) H 12/13/16 05:35 ALT 240 U/L (7-52) H 12/13/16 05:35 Alkaline Phosphatase 605 U/L (34-104) H 12/13/16 05:35 Troponin I < 0.01 ng/mL (0.01-0.05) L 12/10/16 21:19 Total Protein 6.0 gm/dL (6.0-8.3) 12/13/16 05:35 Albumin 3.4 gm/dL (4.2-5.5) L 12/13/16 05:35 Globulin 2.6 gm/dL 12/13/16 05:35 Albumin/Globulin Ratio 1.3 (1.0-1.8) 12/13/16 05:35 Triglycerides 46 mg/dL (<150) 12/10/16 21:19 Cholesterol 122 mg/dL (<200) 12/10/16 21:19 LDL Cholesterol Direct 30 mg/dL (75-193) L 12/10/16 21:19 HDL Cholesterol 71 mg/dL (23-92) 12/10/16 21:19 Amylase 127 U/L (29-103) H 12/11/16 05:05 Lipase 52 U/L (11-82) 12/11/16 05:05 TSH 6.49 uIU/ml (0.34-5.60) H 12/10/16 21:19 Urine Source CLEAN C 12/11/16 07:40 Urine Color YELLOW 12/11/16 07:40 Urine Clarity H (CLEAR) 12/11/16 07:40 Urine pH 7.0 (4.6 - 8.0) 12/11/16 07:40 Ur Specific [place] 1.010 (1.005-1.030) 12/11/16 07:40 Urine Protein 100 mg/dL (NEGATIVE) H 12/11/16 07:40 Urine Glucose (UA) 250 mg/dL (NEGATIVE) H 12/11/16 07:40 Urine Ketones NEGATIVE mg/dL (NEGATIVE) 12/11/16 07:40 Urine Blood SMALL (NEGATIVE) H 12/11/16 07:40 Urine Nitrate NEGATIVE (NEGATIVE) 12/11/16 07:40 Urine Bilirubin NEGATIVE (NEGATIVE) 12/11/16 07:40 Urine Urobilinogen 0.2 E.U./dL (0.2 - 1.0) 12/11/16 07:40 Ur Leukocyte Esterase NEGATIVE (NEGATIVE) 12/11/16 07:40 Urine RBC 0-2 /hpf (0-5) H 12/11/16 07:40 Urine WBC 0-2 /hpf (0-5) 12/11/16 07:40 Ur Epithelial Cells OCCASIONAL /lpf (FEW) 12/11/16 07:40 Urine Bacteria NONE SEEN /hpf (NONE SEEN) 12/11/16 07:40 Hepatitis A IgM Ab Negative (Negative) 12/12/16 06:30 Hep Bs Antigen Negative (Negative) 12/12/16 06:30 Hep B Core IgM Ab Negative (Negative) 12/12/16 06:30 Hepatitis C Antibody 0.1 s/co ratio (0.0-0.9) 12/12/16 06:30 - Physical Exam Vitals and I&O: Vital Signs Temp 98.3 F 12/13/16 12:00 Pulse 64 12/13/16 12:00 Resp 17 12/13/16 12:00 BP 121/73 12/13/16 12:00 Pulse Ox 96 12/13/16 12:00 Intake & Output 12/12/16 12/13/16 12/13/16 18:59 06:59 18:59 Intake Total 50 817.333 Balance 50 817.333 Weight (lbs) 54.431 kg Intake: Intake, IV Amount 50 717.333 D5-0.45NS 1,000 ml @ 40 617.333 mls/hr IV .Q24H [facility] Rx#: [id number] Piperacillin Sodium/ 50 100 Tazobact 2.25 gm In Sodium Chloride 0.9% 50 ml @ 100 mls/hr IV Q8HR [facility] Rx#:[id number] Oral 100 Other: # Voids 1 Active Medications: Current Medications Hydromorphone HCl (Dilaudid) 1 mg IVP Q4HR PRN PRN Reason: Pain (Severe) Stop: 02/09/17 15:12 Last Admin: 12/13/16 11:29 Dose: 1 mg Piperacillin Sod/Tazobactam (Sod 2.25 gm/ Sodium Chloride) 50 mls @ 100 mls/hr IV Q8HR [facility] Stop: 02/09/17 01:44 Last Infusion: 12/13/16 06:13 Dose: Infused Dextrose/Sodium Chloride (D5-0.45ns) 1,000 mls @ 40 mls/hr IV .Q24H [facility] Stop: 02/10/17 06:50 Last Admin: 12/13/16 06:35 Dose: 40 mls/hr Insulin Aspart (Novolog Insulin Sliding Scale) 0 units SUBQ ACHS RADHA PRN Reason: Protocol Stop: 02/09/17 07:29 Last Admin: 12/13/16 07:09 Dose: Not Given Levetiracetam (Keppra) 500 mg PO BID [facility] Stop: 02/09/17 08:59 Last Admin: 12/13/16 08:38 Dose: Not Given Miscellaneous (Zosyn Iv Per Pharmacy) 1 ea MC PRN PRN PRN Reason: PROTOCOL Stop: 02/09/17 04:59 Ondansetron HCl (Zofran) 4 mg IV Q6HR PRN PRN Reason: Nausea / Vomiting Stop: 02/09/17 01:22 Sitagliptin Phosphate (Januvia) 25 mg PO DAILY [facility] Stop: 02/10/17 08:59 Last Admin: 12/13/16 08:38 Dose: Not Given - Procedures Procedures: Procedures Procedure Code Date ABDOMEN SURGERY PROCEDURE 93401 10/21/16 EGD BIOPSY SINGLE/MULTIPLE 50298 02/20/16 EXCISION OF DUODENUM, ENDO, DIAGN [id number] 02/20/16 EXCISION OF STOMACH, PYLORUS, ENDO, DIAGN [id number] 02/20/16 INTRODUCTION OF SERUM/TOX/VACCINE INTO MUSCLE, PERC APPROACH [id number] 11/05/16 PERFORMANCE OF URINARY FILTRATION, MULTIPLE [id number] 10/21/16 PERFORMANCE OF URINARY FILTRATION, SINGLE [id number] 11/05/16 RELEASE GREATER OMENTUM, OPEN APPROACH [id number] 10/21/16 RELEASE LIVER, OPEN APPROACH [id number] 10/21/16 REMOVAL OF GALLBLADDER 02059 10/21/16 RESECTION OF GALLBLADDER, OPEN APPROACH [id number] 10/21/16 TRANSFUSE NONAUT RED BLOOD CELLS IN PERIPH VEIN, PERC 58626Z9 11/05/16 Assessment/Plan - Problem List Patient Problems: All Active Problems NOT FEELING GOOD WITH NAUSEA (Acute) The administrative codes within the [employer] content you are accessing may have as of 02/06/2016. Please contact your IT Dept/Help Desk and request the latest Regulatory release be installed. IT Dept/Help Desk- Please refer to our FAQ page ([email or web address]) or contact [employer] Customer Support at [email or web address] (Acute ~02/20/16) WEAKNESS WITH RIGHT LOWER QUAD PAIN (Acute) WEAKNESS WITH RIGHT LOWER QUAD PAIN (Acute) Nutritional Asmnt/Malnutr-PDOC - Dietary Evaluation Malnutrition Findings (Please click <Entered> for more info): Nutritional Asmnt/Malnutrition Start: 12/12/16 14: 00 Text: Status: Complete Freq: Document 12/12/16 14:00 [facility] (Rec: 12/12/16 14:10 [email or web address] [id number]) Nutritional Asmnt/Malnutrition Patient General Information Nutritional Screening High Risk Screening Diagnosis Common bile duct dilation Pertinent Medical Hx/Surgical Hx HTN, DM, ESRD on dialysis, seizures, cholecystectomy Subjective Information Pt is a 31-year-old male admitted with chief complaint of right sided abdominal pain. RD attempted visit twice but pt was sound asleep on both occasions. Pt appears to have a small body frame but no signs of muscle or fat depletion. IBW calculated with consideration of small body frame. Per ER report, pt has had vomiting and diarrhea for several days; no current reports of GI distress. Current Diet Order/ Nutrition Support Clear liquid Patient / S.O Can Pertinent Medications D5-0.45 ns, Dilaudid, Piperacillin, Januvia Pertinent Labs (12/10) Na 133L, Glucose 185H, LDL Cholesterol 30L. (12/12) Na 131L, K 5.5H, BUN 59H, Creatinine 8.4H, Total Bilirubin 3.8H, AST 330H, ALT 340H, Alkaline Phosphatase 522H, Amylase 127H Nutritional Hx/Data Height 1.57 m Height (Calculated Centimeters) 157.5 Current Weight (lbs) 47.174 kg Weight (Calculated Kilograms) 47.2 Weight (Calculated Grams) 74565.6 Usual body Weight (lbs) 104 % Usual Body Weight 100 [place] Body Weight 106 % [place] Body Weight 98 Recent Weight Change No Weight Status Approriate GI Symptoms GI Symptoms Vomitting Diarrhea Food Allergies No Skin Integrity/Comment: Rohit 21. Skin intact. Estimated Nutritional Goals BEE in Kcals: Using Current wt Calories/Kcals/Kg Based on current wt 47.2 kg with consideration of dialysis Kcals Calculated 3200-9481 kcals/day (30-35 kcals/kg) Protein: Using Current wt Protein g/kg: Based on current wt 47.2 kg with consideration of dialysis Protein Calculated 57-71 gm/day (1.2-1.5 gm/kg) Fluid: ml Per MD/DO Nutritional Problem 1. Problem Problem Inadequate energy/protein intake related to Etiology altered GI function with vomiting and diarrhea as evidenced by Signs/Symptoms: need for clear liquid diet. Malnutrition Alert Protein-Calorie Malnutrition N/A Malnutrition Related to Morbid Obesity Malnutrition related to morbid obesity No Intervention/Recommendation Recommendations by RD Increase Calorie Intake Protein supplementation Comments 1. Recommend Boost Breeze TID with clear liquid diet to promote nutritional intake. Encourage oral intake. 2. Advance as tolerated to renal diet with Novosource Renal BID. Expected Outcomes/Goals Expected Outcomes/Goals Have pt meet at least 75% of estimated nutritional needs with acceptable tolerance. Physician Parameters for PEM Normal Weight % 90% - 110% (Normal) Body Mass Index (BMI) 18 - 24 (Mild) Serum Albumin (g/dl) 3.5 - 5.0 (Normal)
[2016-12-13] MEDS ORDERED: Midazolam 1mg/ml 2 ml vial IV ONE (13:45)
[2016-12-13] MEDS ORDERED: Neostigmine 10mg/10mL Vial ONE (14:30)
--- NOTE | 2016-12-13 15:03 | Diagnostic Imaging Report ---
ERCP (endoscopic retrograde cholepancreatography), intraoperative fluoroscopic services HISTORY: ERCP Intraoperative fluoroscopic services and images were provided for facilitation of an ERCP. 1 minute 35 seconds fluoroscopy time was utilized.
--- NOTE | 2016-12-13 16:32 | Operative Report ---
DATE OF SURGERY: 12/13/2016 PROCEDURE: ERCP with sphincterotomy, stone/sludge extraction and stent placement. PREOPERATIVE DIAGNOSES: Suspected choledocholithiasis/biliary obstruction and possible bile leak. POST-PROCEDURE DIAGNOSES: 1. Mildly dilated common bile duct up to 9 mm in greatest diameter without obvious filling defect within. 2. Status post biliary sphincterotomy. 3. Status post common bile duct stone fragments/sludge extraction by balloon sweeps. 4. No obvious bile leak identified. 5. Status post 10-Cameroonian 7 cm bile duct stent placement. 6. Mild post-sphincterotomy bleeding controlled with submucosal epinephrine injection. 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 He had a laparoscopic cholecystectomy 6 weeks ago. He had postoperative abdominal pain. Imaging now suggests gallbladder fluid collection. Preoperative HIDA scan was inconclusive as there was no extravasation of dye from the liver. Therefore, it was unable to determine whether there was an active bile leak. MRCP also was somewhat limited. Previous imaging has shown dilated bile duct, but no obvious filling defect was identified. Given the patient's abnormal liver enzymes and gallbladder fluid collection, it was deemed prudent to perform an ERCP for further evaluation. CONSENT: Informed consent was obtained from the patient's mother prior to procedure after explaining risks, benefits and alternatives, including but not limited to infection, bleeding, perforation, pancreatitis and . SEDATION: General anesthesia by Dr. Roman. DESCRIPTION OF PROCEDURE AND FINDINGS: The patient took place in the operating room of [facility]. The patient was kept in a supine position. General anesthesia was achieved by Dr. Roman. The patient was then kept in a prone position. An Olympus therapeutic side-viewing duodenoscope was advanced via the patient's mouth and into the esophagus. It was advanced via the stomach and into the duodenum up to the second portion. The major ampulla was visualized and appeared grossly unremarkable. A sphincterotome cannula was then used with guidewire assistance to cannulate the common bile duct. There was initial preferential guidewire cannulation of the pancreatic duct. No pancreatogram was performed. The cannula was then repositioned and with guidewire assistance, the bile duct was able to be cannulated. Subsequent cholangiogram revealed a mildly dilated bile duct up to about 9 mm in greatest diameter. There was mild intrahepatic ductal dilation. No obvious contrast extravasation suggesting a bile leak was identified. Next, a biliary sphincterotomy was performed over a wire. An approximate 4-5 mm cut was made. No immediate post-sphincterotomy complications such as bleeding or perforation were initially identified. Balloon sweeps were carried out using a balloon cannula. A small amount of bile duct sludge and stone fragments were extracted from the bile duct into the duodenum. No obvious large stones were extracted. There was some oozing identified from the post-sphincterotomy site. Using a sclerotherapy needle, 7 mL of 1:10,000 mix of epinephrine were injected at the sphincterotomy site with transient hemostasis achieved. At this point, it was deemed prudent to place a bile duct stent. A 10-Cameroonian 7 cm bile duct plastic biliary stent was then placed in satisfactory position in the bile duct. There was still some oozing identified from the sphincterotomy site. This was controlled with submucosal injection of the remaining 3 mL of epinephrine. Good hemostasis was achieved. At this point, the scope was withdrawn. The patient tolerated the procedure well. No complications are anticipated. IMPRESSION: 1. Monitor pancreatic and liver labs postoperatively. 2. Diet as tolerated. 3. The patient may benefit from percutaneous drainage of this gallbladder fossa fluid collection if right upper quadrant pain persists. 4. The patient will need an elective ERCP in 6-8 weeks' time to remove the bile duct stent and to clear the bile duct again. Thank you Dr. Feliciano Davis for involving us in the care of the patient. If you have any further questions, please call us. JOB# [id number] MTDD
[2016-12-14] MEDS: HYDROmorphone 1 mg/mL 1mL Syr IVP PRN ×5 (00:06→17:49)
[2016-12-14] MEDS: Piperacillin/Tazobact 2.25 gm in 0.9% NS 50 ML IV SCH ×3 (05:04→21:12)
[2016-12-14] MEDS: INSULIN ASPART SLIDING SCALE 100 UNITS/ML UNIT SUBQ SCH ×4 (06:31→21:13)
[2016-12-14 08:02] LABS: ALB/GLOB RATIO 1.3 (1.0-1.8); ANION GAP 17.6 (7.0-16.0); BILIRUBIN,TOTAL 7.2 mg/dL (0.3-1.0); BUN/CREATININE RATIO 5.6; CALCIUM SERUM 9.2 mg/dL (8.6-10.3); CARBON DIOXIDE 22.2 mEq/L (21.0-31.0); POTASSIUM SERUM 3.8 mEq/L (3.5-5.1)
[2016-12-14 08:14] LABS: HEMATOCRIT 30.9 % (39.0-49.0); HEMOGLOBIN 10.6 gm/dL (13.2-17.3); MEAN CELL VOLUME 87.8 fl (80-99); MEAN CORPUSCULAR HEMOGLOBIN 30.1 pg (26.0-30.0); MEAN CORPUSCULAR HGB CONC 34.3 pg (28.0-36.0); MEAN PLATELET VOLUME 7.8 fl; PLATELET COUNT 111 Th/cmm (150-400); RED BLOOD COUNT 3.52 Mil/cmm (4.30-5.70); RED CELL DISTRIBUTION WIDTH 16.6 % (11.5-20.0); WHITE BLOOD COUNT 3.5 Th/cmm (4.8-10.8)
[2016-12-14 08:21] LABS: BAND NEUTROPHILE 0 % (0-10); EOSINOPHIL 9 % (0-5); NEUTROPHILS 52 % (40-80); TOTAL CELLS COUNTED 100
[2016-12-14 08:22] LABS: CREATININE - SERUM 9.1 mg/dL (0.7-1.3); PLATELET ESTIMATE DECREASED PLATELETS (NORMAL)
[2016-12-14] MEDS: D5-0.45NS 1,000 ML IV SCH (08:22)
--- NOTE | 2016-12-14 08:55 | General Progress Note ---
Subjective - Review of Systems Service Date: 12/14/16 Events since last encounter: LFT noted ERCP with stent - sludge removed Objective - Results Result Diagrams: 12/14/16 06:36 12/14/16 06:36 Recent Labs: Laboratory Last Values WBC 3.5 Th/cmm (4.8-10.8) L 12/14/16 06:36 RBC 3.52 Mil/cmm (4.30-5.70) L 12/14/16 06:36 Hgb 10.6 gm/dL (13.2-17.3) L 12/14/16 06:36 Hct 30.9 % (39.0-49.0) L 12/14/16 06:36 MCV 87.8 fl (80-99) 12/14/16 06:36 MCH 30.1 pg (26.0-30.0) H 12/14/16 06:36 MCHC Differential 34.3 pg (28.0-36.0) 12/14/16 06:36 RDW 16.6 % (11.5-20.0) 12/14/16 06:36 Plt Count 111 Th/cmm (150-400) L 12/14/16 06:36 MPV 7.8 fl 12/14/16 06:36 Neutrophils % 56.3 % (40.0-80.0) 12/13/16 05:35 Band Neutrophils % 0 % (0-10) 12/14/16 06:36 Lymphocytes % 25.8 % (20.0-50.0) 12/13/16 05:35 Monocytes % 9.4 % (2.0-10.0) 12/13/16 05:35 Eosinophils % 8.4 % (0.0-5.0) H 12/13/16 05:35 Basophils % 0.1 % (0.0-2.0) 12/13/16 05:35 Neutrophils (Manual) 52 % (40-80) 12/14/16 06:36 Lymphocytes 28 % (20-50) 12/14/16 06:36 Monocytes 11 % (2-10) H 12/14/16 06:36 Eosinophils 9 % (0-5) H 12/14/16 06:36 Platelet Estimate DECREASED PLATELETS (NORMAL) 12/14/16 06:36 PT 11.6 SECONDS (9.5-11.5) H 12/13/16 05:35 INR 1.11 (0.5-1.4) 12/13/16 05:35 PTT (Actin FS) 25.4 SECONDS (26.0-38.0) L 12/10/16 21:19 Sodium 134 mEq/L (136-145) L 12/14/16 06:36 Potassium 3.8 mEq/L (3.5-5.1) 12/14/16 06:36 Chloride 98 mEq/L (98-107) 12/14/16 06:36 Carbon Dioxide 22.2 mEq/L (21.0-31.0) 12/14/16 06:36 Anion Gap 17.6 (7.0-16.0) H 12/14/16 06:36 BUN 51 mg/dL (7-25) H 12/14/16 06:36 Creatinine 9.1 mg/dL (0.7-1.3) H* 12/14/16 06:36 Est GFR ( Amer) 8.7 ml/min (>90) 12/14/16 06:36 Est GFR (Non-Af Amer) 7.2 ml/min 12/14/16 06:36 BUN/Creatinine Ratio 5.6 12/14/16 06:36 Glucose 88 mg/dL (70-105) 12/14/16 06:36 POC Glucose 98 MG/DL (70 - 105) 12/14/16 05:31 Hemoglobin A1c % 5.0 % (4.0-6.0) 12/10/16 21:19 Calcium 9.2 mg/dL (8.6-10.3) 12/14/16 06:36 Total Bilirubin 7.2 mg/dL (0.3-1.0) H 12/14/16 06:36 Direct Bilirubin 5.13 mg/dL (0.0-0.2) H 12/12/16 06:30 AST 93 U/L (13-39) H 12/14/16 06:36 ALT 173 U/L (7-52) H 12/14/16 06:36 Alkaline Phosphatase 493 U/L (34-104) H 12/14/16 06:36 Troponin I < 0.01 ng/mL (0.01-0.05) L 12/10/16 21:19 Total Protein 5.7 gm/dL (6.0-8.3) L 12/14/16 06:36 Albumin 3.2 gm/dL (4.2-5.5) L 12/14/16 06:36 Globulin 2.5 gm/dL 12/14/16 06:36 Albumin/Globulin Ratio 1.3 (1.0-1.8) 12/14/16 06:36 Triglycerides 46 mg/dL (<150) 12/10/16 21:19 Cholesterol 122 mg/dL (<200) 12/10/16 21:19 LDL Cholesterol Direct 30 mg/dL (75-193) L 12/10/16 21:19 HDL Cholesterol 71 mg/dL (23-92) 12/10/16 21:19 Amylase 127 U/L (29-103) H 12/11/16 05:05 Lipase 52 U/L (11-82) 12/11/16 05:05 TSH 6.49 uIU/ml (0.34-5.60) H 12/10/16 21:19 Urine Source CLEAN C 12/11/16 07:40 Urine Color YELLOW 12/11/16 07:40 Urine Clarity H (CLEAR) 12/11/16 07:40 Urine pH 7.0 (4.6 - 8.0) 12/11/16 07:40 Ur Specific [place] 1.010 (1.005-1.030) 12/11/16 07:40 Urine Protein 100 mg/dL (NEGATIVE) H 12/11/16 07:40 Urine Glucose (UA) 250 mg/dL (NEGATIVE) H 12/11/16 07:40 Urine Ketones NEGATIVE mg/dL (NEGATIVE) 12/11/16 07:40 Urine Blood SMALL (NEGATIVE) H 12/11/16 07:40 Urine Nitrate NEGATIVE (NEGATIVE) 12/11/16 07:40 Urine Bilirubin NEGATIVE (NEGATIVE) 12/11/16 07:40 Urine Urobilinogen 0.2 E.U./dL (0.2 - 1.0) 12/11/16 07:40 Ur Leukocyte Esterase NEGATIVE (NEGATIVE) 12/11/16 07:40 Urine RBC 0-2 /hpf (0-5) H 12/11/16 07:40 Urine WBC 0-2 /hpf (0-5) 12/11/16 07:40 Ur Epithelial Cells OCCASIONAL /lpf (FEW) 12/11/16 07:40 Urine Bacteria NONE SEEN /hpf (NONE SEEN) 12/11/16 07:40 Hepatitis A IgM Ab Negative (Negative) 12/12/16 06:30 Hep Bs Antigen Negative (Negative) 12/12/16 06:30 Hep B Core IgM Ab Negative (Negative) 12/12/16 06:30 Hepatitis C Antibody 0.1 s/co ratio (0.0-0.9) 12/12/16 06:30 - Physical Exam Vitals and I&O: Vital Signs Temp 98.4 F 12/14/16 04:00 Pulse 57 12/14/16 04:00 Resp 19 12/14/16 04:00 BP 110/58 12/14/16 04:00 Pulse Ox 97 12/14/16 04:00 Intake & Output 12/13/16 12/14/16 12/14/16 18:59 06:59 18:59 Intake Total 100 962.667 497.333 Balance 100 962.667 497.333 Weight (lbs) 54.431 kg 48.648 kg Intake: Intake, IV Amount 50 602.667 497.333 D5-0.45NS 1,000 ml @ 40 502.667 497.333 mls/hr IV .Q24H [facility] Rx#: [id number] Piperacillin Sodium/ 50 100 Tazobact 2.25 gm In Sodium Chloride 0.9% 50 ml @ 100 mls/hr IV Q8HR [facility] Rx#:[id number] Oral 50 360 Other: # Voids 3 2 # Bowel Movements 1 Active Medications: Current Medications Hydromorphone HCl (Dilaudid) 1 mg IVP Q4HR PRN PRN Reason: Pain (Severe) Stop: 02/09/17 15:12 Last Admin: 12/14/16 08:14 Dose: 1 mg Piperacillin Sod/Tazobactam (Sod 2.25 gm/ Sodium Chloride) 50 mls @ 100 mls/hr IV Q8HR [facility] Stop: 02/09/17 01:44 Last Infusion: 12/14/16 05:34 Dose: Infused Dextrose/Sodium Chloride (D5-0.45ns) 1,000 mls @ 40 mls/hr IV .Q24H [facility] Stop: 02/10/17 06:50 Last Admin: 12/14/16 08:22 Dose: 40 mls/hr Insulin Aspart (Novolog Insulin Sliding Scale) 0 units SUBQ ACHS RADHA PRN Reason: Protocol Stop: 02/09/17 07:29 Last Admin: 12/14/16 06:31 Dose: Not Given Levetiracetam (Keppra) 500 mg PO BID RADHA Stop: 02/09/17 08:59 Last Admin: 12/14/16 08:14 Dose: 500 mg Miscellaneous (Zosyn Iv Per Pharmacy) 1 ea MC PRN PRN PRN Reason: PROTOCOL Stop: 02/09/17 04:59 Ondansetron HCl (Zofran) 4 mg IV Q6HR PRN PRN Reason: Nausea / Vomiting Stop: 02/09/17 01:22 Sitagliptin Phosphate (Januvia) 25 mg PO DAILY RADHA Stop: 02/10/17 08:59 Last Admin: 12/14/16 08:14 Dose: 25 mg - Procedures Procedures: Procedures Procedure Code Date ABDOMEN SURGERY PROCEDURE 73461 10/21/16 EGD BIOPSY SINGLE/MULTIPLE 51465 02/20/16 EXCISION OF DUODENUM, ENDO, DIAGN [id number] 02/20/16 EXCISION OF STOMACH, PYLORUS, ENDO, DIAGN [id number] 02/20/16 INTRODUCTION OF SERUM/TOX/VACCINE INTO MUSCLE, PERC APPROACH [id number] 11/05/16 PERFORMANCE OF URINARY FILTRATION, MULTIPLE [id number] 10/21/16 PERFORMANCE OF URINARY FILTRATION, SINGLE [id number] 11/05/16 RELEASE GREATER OMENTUM, OPEN APPROACH [id number] 10/21/16 RELEASE LIVER, OPEN APPROACH [id number] 10/21/16 REMOVAL OF GALLBLADDER 82946 10/21/16 RESECTION OF GALLBLADDER, OPEN APPROACH [id number] 10/21/16 TRANSFUSE NONAUT RED BLOOD CELLS IN PERIPH VEIN, PERC [id number] 11/05/16 Assessment/Plan - Problem List Patient Problems: All Active Problems NOT FEELING GOOD WITH NAUSEA (Acute) The administrative codes within the [employer] content you are accessing may have as of 02/06/2016. Please contact your IT Dept/Help Desk and request the latest Regulatory release be installed. IT Dept/Help Desk- Please refer to our FAQ page ([email or web address]) or contact [employer] Customer Support at [email or web address] (Acute ~02/20/16) WEAKNESS WITH RIGHT LOWER QUAD PAIN (Acute) WEAKNESS WITH RIGHT LOWER QUAD PAIN (Acute) Nutritional Asmnt/Malnutr-PDOC - Dietary Evaluation Malnutrition Findings (Please click <Entered> for more info): Nutritional Asmnt/Malnutrition Start: 12/12/16 14: 00 Text: Status: Complete Freq: Document 12/12/16 14:00 [facility] (Rec: 12/12/16 14:10 [facility] [id number]) Nutritional Asmnt/Malnutrition Patient General Information Nutritional Screening High Risk Screening Diagnosis Common bile duct dilation Pertinent Medical Hx/Surgical Hx HTN, DM, ESRD on dialysis, seizures, cholecystectomy Subjective Information Pt is a 31-year-old male admitted with chief complaint of right sided abdominal pain. RD attempted visit twice but pt was sound asleep on both occasions. Pt appears to have a small body frame but no signs of muscle or fat depletion. IBW calculated with consideration of small body frame. Per ER report, pt has had vomiting and diarrhea for several days; no current reports of GI distress. Current Diet Order/ Nutrition Support Clear liquid Patient / S.O Can Pertinent Medications D5-0.45 ns, Dilaudid, Piperacillin, Januvia Pertinent Labs (12/10) Na 133L, Glucose 185H, LDL Cholesterol 30L. (12/12) Na 131L, K 5.5H, BUN 59H, Creatinine 8.4H, Total Bilirubin 3.8H, AST 330H, ALT 340H, Alkaline Phosphatase 522H, Amylase 127H Nutritional Hx/Data Height 1.57 m Height (Calculated Centimeters) 157.5 Current Weight (lbs) 47.174 kg Weight (Calculated Kilograms) 47.2 Weight (Calculated Grams) 20885.6 Usual body Weight (lbs) 104 % Usual Body Weight 100 [place] Body Weight 106 % [place] Body Weight 98 Recent Weight Change No Weight Status Approriate GI Symptoms GI Symptoms Vomitting Diarrhea Food Allergies No Skin Integrity/Comment: Rohit Burnham. Skin intact. Estimated Nutritional Goals BEE in Kcals: Using Current wt Calories/Kcals/Kg Based on current wt 47.2 kg with consideration of dialysis Kcals Calculated 0300-3153 kcals/day (30-35 kcals/kg) Protein: Using Current wt Protein g/kg: Based on current wt 47.2 kg with consideration of dialysis Protein Calculated 57-71 gm/day (1.2-1.5 gm/kg) Fluid: ml Per MD/DO Nutritional Problem 1. Problem Problem Inadequate energy/protein intake related to Etiology altered GI function with vomiting and diarrhea as evidenced by Signs/Symptoms: need for clear liquid diet. Malnutrition Alert Protein-Calorie Malnutrition N/A Malnutrition Related to Morbid Obesity Malnutrition related to morbid obesity No Intervention/Recommendation Recommendations by RD Increase Calorie Intake Protein supplementation Comments 1. Recommend Boost Breeze TID with clear liquid diet to promote nutritional intake. Encourage oral intake. 2. Advance as tolerated to renal diet with Novosource Renal BID. Expected Outcomes/Goals Expected Outcomes/Goals Have pt meet at least 75% of estimated nutritional needs with acceptable tolerance. Physician Parameters for PEM Normal Weight % 90% - 110% (Normal) Body Mass Index (BMI) 18 - 24 (Mild) Serum Albumin (g/dl) 3.5 - 5.0 (Normal)
[2016-12-15] MEDS: Piperacillin/Tazobact 2.25 gm in 0.9% NS 50 ML IV SCH ×3 (04:38→20:39)
[2016-12-15] MEDS: D5-0.45NS 1,000 ML IV SCH (05:11)
[2016-12-15 06:42] LABS: HEMOGLOBIN 9.2 gm/dL (13.2-17.3); MEAN CELL VOLUME 87.7 fl (80-99); MEAN CORPUSCULAR HEMOGLOBIN 30.3 pg (26.0-30.0); MEAN CORPUSCULAR HGB CONC 34.5 pg (28.0-36.0); MEAN PLATELET VOLUME 8.3 fl; PLATELET COUNT 104 Th/cmm (150-400); RED BLOOD COUNT 3.03 Mil/cmm (4.30-5.70); RED CELL DISTRIBUTION WIDTH 16.2 % (11.5-20.0)
[2016-12-15] MEDS: INSULIN ASPART SLIDING SCALE 100 UNITS/ML UNIT SUBQ SCH ×4 (06:45→20:52)
[2016-12-15 07:16] LABS: ALB/GLOB RATIO 1.3 (1.0-1.8); ANION GAP 14.7 (7.0-16.0); BILIRUBIN,TOTAL 8.6 mg/dL (0.3-1.0); BUN/CREATININE RATIO 5.4; CALCIUM SERUM 9.1 mg/dL (8.6-10.3); CARBON DIOXIDE 25.6 mEq/L (21.0-31.0); POTASSIUM SERUM 3.3 mEq/L (3.5-5.1)
--- NOTE | 2016-12-15 08:24 | General Progress Note ---
Subjective - Review of Systems Service Date: 12/15/16 Events since last encounter: still complaining of pain tolerating intake, no vomiting no labs today Objective - Results Result Diagrams: 12/14/16 06:36 12/14/16 06:36 Recent Labs: Laboratory Last Values WBC 3.5 Th/cmm (4.8-10.8) L 12/14/16 06:36 RBC 3.52 Mil/cmm (4.30-5.70) L 12/14/16 06:36 Hgb 10.6 gm/dL (13.2-17.3) L 12/14/16 06:36 Hct 30.9 % (39.0-49.0) L 12/14/16 06:36 MCV 87.8 fl (80-99) 12/14/16 06:36 MCH 30.1 pg (26.0-30.0) H 12/14/16 06:36 MCHC Differential 34.3 pg (28.0-36.0) 12/14/16 06:36 RDW 16.6 % (11.5-20.0) 12/14/16 06:36 Plt Count 111 Th/cmm (150-400) L 12/14/16 06:36 MPV 7.8 fl 12/14/16 06:36 Neutrophils % 56.3 % (40.0-80.0) 12/13/16 05:35 Band Neutrophils % 0 % (0-10) 12/14/16 06:36 Lymphocytes % 25.8 % (20.0-50.0) 12/13/16 05:35 Monocytes % 9.4 % (2.0-10.0) 12/13/16 05:35 Eosinophils % 8.4 % (0.0-5.0) H 12/13/16 05:35 Basophils % 0.1 % (0.0-2.0) 12/13/16 05:35 Neutrophils (Manual) 52 % (40-80) 12/14/16 06:36 Lymphocytes 28 % (20-50) 12/14/16 06:36 Monocytes 11 % (2-10) H 12/14/16 06:36 Eosinophils 9 % (0-5) H 12/14/16 06:36 Platelet Estimate DECREASED PLATELETS (NORMAL) 12/14/16 06:36 PT 11.6 SECONDS (9.5-11.5) H 12/13/16 05:35 INR 1.11 (0.5-1.4) 12/13/16 05:35 PTT (Actin FS) 25.4 SECONDS (26.0-38.0) L 12/10/16 21:19 Sodium 134 mEq/L (136-145) L 12/14/16 06:36 Potassium 3.8 mEq/L (3.5-5.1) 12/14/16 06:36 Chloride 98 mEq/L (98-107) 12/14/16 06:36 Carbon Dioxide 22.2 mEq/L (21.0-31.0) 12/14/16 06:36 Anion Gap 17.6 (7.0-16.0) H 12/14/16 06:36 BUN 51 mg/dL (7-25) H 12/14/16 06:36 Creatinine 9.1 mg/dL (0.7-1.3) H* 12/14/16 06:36 Est GFR ( Amer) 8.7 ml/min (>90) 12/14/16 06:36 Est GFR (Non-Af Amer) 7.2 ml/min 12/14/16 06:36 BUN/Creatinine Ratio 5.6 12/14/16 06:36 Glucose 88 mg/dL (70-105) 12/14/16 06:36 POC Glucose 117 MG/DL (70 - 105) H 12/15/16 05:54 Hemoglobin A1c % 5.0 % (4.0-6.0) 12/10/16 21:19 Calcium 9.2 mg/dL (8.6-10.3) 12/14/16 06:36 Total Bilirubin 7.2 mg/dL (0.3-1.0) H 12/14/16 06:36 Direct Bilirubin 5.13 mg/dL (0.0-0.2) H 12/12/16 06:30 AST 93 U/L (13-39) H 12/14/16 06:36 ALT 173 U/L (7-52) H 12/14/16 06:36 Alkaline Phosphatase 493 U/L (34-104) H 12/14/16 06:36 Troponin I < 0.01 ng/mL (0.01-0.05) L 12/10/16 21:19 Total Protein 5.7 gm/dL (6.0-8.3) L 12/14/16 06:36 Albumin 3.2 gm/dL (4.2-5.5) L 12/14/16 06:36 Globulin 2.5 gm/dL 12/14/16 06:36 Albumin/Globulin Ratio 1.3 (1.0-1.8) 12/14/16 06:36 Triglycerides 46 mg/dL (<150) 12/10/16 21:19 Cholesterol 122 mg/dL (<200) 12/10/16 21:19 LDL Cholesterol Direct 30 mg/dL (75-193) L 12/10/16 21:19 HDL Cholesterol 71 mg/dL (23-92) 12/10/16 21:19 Amylase 127 U/L (29-103) H 12/11/16 05:05 Lipase 52 U/L (11-82) 12/11/16 05:05 TSH 6.49 uIU/ml (0.34-5.60) H 12/10/16 21:19 Urine Source CLEAN C 12/11/16 07:40 Urine Color YELLOW 12/11/16 07:40 Urine Clarity H (CLEAR) 12/11/16 07:40 Urine pH 7.0 (4.6 - 8.0) 12/11/16 07:40 Ur Specific [place] 1.010 (1.005-1.030) 12/11/16 07:40 Urine Protein 100 mg/dL (NEGATIVE) H 12/11/16 07:40 Urine Glucose (UA) 250 mg/dL (NEGATIVE) H 12/11/16 07:40 Urine Ketones NEGATIVE mg/dL (NEGATIVE) 12/11/16 07:40 Urine Blood SMALL (NEGATIVE) H 12/11/16 07:40 Urine Nitrate NEGATIVE (NEGATIVE) 12/11/16 07:40 Urine Bilirubin NEGATIVE (NEGATIVE) 12/11/16 07:40 Urine Urobilinogen 0.2 E.U./dL (0.2 - 1.0) 12/11/16 07:40 Ur Leukocyte Esterase NEGATIVE (NEGATIVE) 12/11/16 07:40 Urine RBC 0-2 /hpf (0-5) H 12/11/16 07:40 Urine WBC 0-2 /hpf (0-5) 12/11/16 07:40 Ur Epithelial Cells OCCASIONAL /lpf (FEW) 12/11/16 07:40 Urine Bacteria NONE SEEN /hpf (NONE SEEN) 12/11/16 07:40 Levetiracetam 42.0 ug/mL (10.0-40.0) H 12/10/16 21:19 Hepatitis A IgM Ab Negative (Negative) 12/12/16 06:30 Hep Bs Antigen Negative (Negative) 12/12/16 06:30 Hep B Core IgM Ab Negative (Negative) 12/12/16 06:30 Hepatitis C Antibody 0.1 s/co ratio (0.0-0.9) 12/12/16 06:30 - Physical Exam Vitals and I&O: Vital Signs Temp 98.9 F 12/15/16 00:00 Pulse 112 12/15/16 04:00 Resp 18 12/15/16 04:00 BP 100/61 12/15/16 04:00 Pulse Ox 100 12/15/16 04:00 Intake & Output 12/14/16 12/15/16 12/15/16 18:59 06:59 18:59 Intake Total 547.333 965.334 Balance 547.333 965.334 Weight (lbs) 46.266 kg Intake: Intake, IV Amount 547.333 965.334 D5-0.45NS 1,000 ml @ 40 497.333 865.334 mls/hr IV .Q24H [facility] Rx#: [id number] Piperacillin Sodium/ 50 100 Tazobact 2.25 gm In Sodium Chloride 0.9% 50 ml @ 100 mls/hr IV Q8HR [facility] Rx#:[id number] Other: # Voids 0 # Bowel Movements 2 Active Medications: Current Medications Piperacillin Sod/Tazobactam (Sod 2.25 gm/ Sodium Chloride) 50 mls @ 100 mls/hr IV Q8HR RAD[facility] Stop: 02/09/17 01:44 Last Infusion: 12/15/16 05:08 Dose: Infused Dextrose/Sodium Chloride (D5-0.45ns) 1,000 mls @ 40 mls/hr IV .Q24H [facility] Stop: 02/10/17 06:50 Last Infusion: 12/15/16 06:00 Dose: 40 mls/hr Ibuprofen (Advil) 600 mg PO Q6HR PRN PRN Reason: Severe Pain Stop: 02/12/17 21:54 Last Admin: 12/15/16 05:15 Dose: 600 mg Insulin Aspart (Novolog Insulin Sliding Scale) 0 units SUBQ ACHS RADHA PRN Reason: Protocol Stop: 02/09/17 07:29 Last Admin: 12/15/16 06:45 Dose: Not Given Levetiracetam (Keppra) 500 mg PO BID RADHA Stop: 02/09/17 08:59 Last Admin: 12/14/16 17:49 Dose: 500 mg Miscellaneous (Zosyn Iv Per Pharmacy) 1 ea MC PRN PRN PRN Reason: PROTOCOL Stop: 02/09/17 04:59 Ondansetron HCl (Zofran) 4 mg IV Q6HR PRN PRN Reason: Nausea / Vomiting Stop: 02/09/17 01:22 Sitagliptin Phosphate (Januvia) 25 mg PO DAILY RADHA Stop: 02/10/17 08:59 Last Admin: 12/14/16 08:14 Dose: 25 mg - Procedures Procedures: Procedures Procedure Code Date ABDOMEN SURGERY PROCEDURE 95445 10/21/16 DILATION OF COMMON BILE DUCT, ENDO [id number] 12/11/16 EGD BIOPSY SINGLE/MULTIPLE 83329 02/20/16 ENDO CHOLANGIOPANCREATOGRAPH 64659 12/11/16 EXCISION OF DUODENUM, ENDO, DIAGN 9XI83EE 02/20/16 EXCISION OF STOMACH, PYLORUS, ENDO, DIAGN [id number] 02/20/16 INTRODUCTION OF SERUM/TOX/VACCINE INTO MUSCLE, PERC APPROACH 2Y2195H 11/05/16 PERFORMANCE OF URINARY FILTRATION, MULTIPLE 2O8H68I 10/21/16 PERFORMANCE OF URINARY FILTRATION, SINGLE 2Z1M90N 11/05/16 RELEASE GREATER OMENTUM, OPEN APPROACH [id number] 10/21/16 RELEASE LIVER, OPEN APPROACH 2IE90TI 10/21/16 REMOVAL OF GALLBLADDER 18319 10/21/16 RESECTION OF GALLBLADDER, OPEN APPROACH 5XN04JA 10/21/16 TRANSFUSE NONAUT RED BLOOD CELLS IN PERIPH VEIN, PERC 29911S1 11/05/16 Assessment/Plan - Problem List Patient Problems: All Active Problems NOT FEELING GOOD WITH NAUSEA (Acute) The administrative codes within the IMO content you are accessing may have as of 02/06/2016. Please contact your IT Dept/Help Desk and request the latest Regulatory release be installed. IT Dept/Help Desk- Please refer to our FAQ page ([email or web address]) or contact [employer] Customer Support at [email or web address] (Acute ~02/20/16) WEAKNESS WITH RIGHT LOWER QUAD PAIN (Acute) WEAKNESS WITH RIGHT LOWER QUAD PAIN (Acute) Nutritional Asmnt/Malnutr-PDOC - Dietary Evaluation Malnutrition Findings (Please click <Entered> for more info): Nutritional Asmnt/Malnutrition Start: 12/12/16 14: 00 Text: Status: Complete Freq: Document 12/12/16 14:00 [facility] (Rec: 12/12/16 14:10 [facility] [id number]) Nutritional Asmnt/Malnutrition Patient General Information Nutritional Screening High Risk Screening Diagnosis Common bile duct dilation Pertinent Medical Hx/Surgical Hx HTN, DM, ESRD on dialysis, seizures, cholecystectomy Subjective Information Pt is a 31-year-old male admitted with chief complaint of right sided abdominal pain. RD attempted visit twice but pt was sound asleep on both occasions. Pt appears to have a small body frame but no signs of muscle or fat depletion. IBW calculated with consideration of small body frame. Per ER report, pt has had vomiting and diarrhea for several days; no current reports of GI distress. Current Diet Order/ Nutrition Support Clear liquid Patient / S.O Can Pertinent Medications D5-0.45 ns, Dilaudid, Piperacillin, Januvia Pertinent Labs (12/10) Na 133L, Glucose 185H, LDL Cholesterol 30L. (12/12) Na 131L, K 5.5H, BUN 59H, Creatinine 8.4H, Total Bilirubin 3.8H, AST 330H, ALT 340H, Alkaline Phosphatase 522H, Amylase 127H Nutritional Hx/Data Height 1.57 m Height (Calculated Centimeters) 157.5 Current Weight (lbs) 47.174 kg Weight (Calculated Kilograms) 47.2 Weight (Calculated Grams) 08865.6 Usual body Weight (lbs) 104 % Usual Body Weight 100 [place] Body Weight 106 % [place] Body Weight 98 Recent Weight Change No Weight Status Approriate GI Symptoms GI Symptoms Vomitting Diarrhea Food Allergies No Skin Integrity/Comment: Rohit 21. Skin intact. Estimated Nutritional Goals BEE in Kcals: Using Current wt Calories/Kcals/Kg Based on current wt 47.2 kg with consideration of dialysis Kcals Calculated 3565-0718 kcals/day (30-35 kcals/kg) Protein: Using Current wt Protein g/kg: Based on current wt 47.2 kg with consideration of dialysis Protein Calculated 57-71 gm/day (1.2-1.5 gm/kg) Fluid: ml Per MD/DO Nutritional Problem 1. Problem Problem Inadequate energy/protein intake related to Etiology altered GI function with vomiting and diarrhea as evidenced by Signs/Symptoms: need for clear liquid diet. Malnutrition Alert Protein-Calorie Malnutrition N/A Malnutrition Related to Morbid Obesity Malnutrition related to morbid obesity No Intervention/Recommendation Recommendations by RD Increase Calorie Intake Protein supplementation Comments 1. Recommend Boost Breeze TID with clear liquid diet to promote nutritional intake. Encourage oral intake. 2. Advance as tolerated to renal diet with Novosource Renal BID. Expected Outcomes/Goals Expected Outcomes/Goals Have pt meet at least 75% of estimated nutritional needs with acceptable tolerance. Physician Parameters for PEM Normal Weight % 90% - 110% (Normal) Body Mass Index (BMI) 18 - 24 (Mild) Serum Albumin (g/dl) 3.5 - 5.0 (Normal)
--- NOTE | 2016-12-15 08:27 | General Progress Note ---
Subjective - Review of Systems Service Date: 12/15/16 Objective - Results Result Diagrams: 12/14/16 06:36 12/14/16 06:36 Recent Labs: Laboratory Last Values WBC 3.5 Th/cmm (4.8-10.8) L 12/14/16 06:36 RBC 3.52 Mil/cmm (4.30-5.70) L 12/14/16 06:36 Hgb 10.6 gm/dL (13.2-17.3) L 12/14/16 06:36 Hct 30.9 % (39.0-49.0) L 12/14/16 06:36 MCV 87.8 fl (80-99) 12/14/16 06:36 MCH 30.1 pg (26.0-30.0) H 12/14/16 06:36 MCHC Differential 34.3 pg (28.0-36.0) 12/14/16 06:36 RDW 16.6 % (11.5-20.0) 12/14/16 06:36 Plt Count 111 Th/cmm (150-400) L 12/14/16 06:36 MPV 7.8 fl 12/14/16 06:36 Neutrophils % 56.3 % (40.0-80.0) 12/13/16 05:35 Band Neutrophils % 0 % (0-10) 12/14/16 06:36 Lymphocytes % 25.8 % (20.0-50.0) 12/13/16 05:35 Monocytes % 9.4 % (2.0-10.0) 12/13/16 05:35 Eosinophils % 8.4 % (0.0-5.0) H 12/13/16 05:35 Basophils % 0.1 % (0.0-2.0) 12/13/16 05:35 Neutrophils (Manual) 52 % (40-80) 12/14/16 06:36 Lymphocytes 28 % (20-50) 12/14/16 06:36 Monocytes 11 % (2-10) H 12/14/16 06:36 Eosinophils 9 % (0-5) H 12/14/16 06:36 Platelet Estimate DECREASED PLATELETS (NORMAL) 12/14/16 06:36 PT 11.6 SECONDS (9.5-11.5) H 12/13/16 05:35 INR 1.11 (0.5-1.4) 12/13/16 05:35 PTT (Actin FS) 25.4 SECONDS (26.0-38.0) L 12/10/16 21:19 Sodium 134 mEq/L (136-145) L 12/14/16 06:36 Potassium 3.8 mEq/L (3.5-5.1) 12/14/16 06:36 Chloride 98 mEq/L (98-107) 12/14/16 06:36 Carbon Dioxide 22.2 mEq/L (21.0-31.0) 12/14/16 06:36 Anion Gap 17.6 (7.0-16.0) H 12/14/16 06:36 BUN 51 mg/dL (7-25) H 12/14/16 06:36 Creatinine 9.1 mg/dL (0.7-1.3) H* 12/14/16 06:36 Est GFR ( Amer) 8.7 ml/min (>90) 12/14/16 06:36 Est GFR (Non-Af Amer) 7.2 ml/min 12/14/16 06:36 BUN/Creatinine Ratio 5.6 12/14/16 06:36 Glucose 88 mg/dL (70-105) 12/14/16 06:36 POC Glucose 117 MG/DL (70 - 105) H 12/15/16 05:54 Hemoglobin A1c % 5.0 % (4.0-6.0) 12/10/16 21:19 Calcium 9.2 mg/dL (8.6-10.3) 12/14/16 06:36 Total Bilirubin 7.2 mg/dL (0.3-1.0) H 12/14/16 06:36 Direct Bilirubin 5.13 mg/dL (0.0-0.2) H 12/12/16 06:30 AST 93 U/L (13-39) H 12/14/16 06:36 ALT 173 U/L (7-52) H 12/14/16 06:36 Alkaline Phosphatase 493 U/L (34-104) H 12/14/16 06:36 Troponin I < 0.01 ng/mL (0.01-0.05) L 12/10/16 21:19 Total Protein 5.7 gm/dL (6.0-8.3) L 12/14/16 06:36 Albumin 3.2 gm/dL (4.2-5.5) L 12/14/16 06:36 Globulin 2.5 gm/dL 12/14/16 06:36 Albumin/Globulin Ratio 1.3 (1.0-1.8) 12/14/16 06:36 Triglycerides 46 mg/dL (<150) 12/10/16 21:19 Cholesterol 122 mg/dL (<200) 12/10/16 21:19 LDL Cholesterol Direct 30 mg/dL (75-193) L 12/10/16 21:19 HDL Cholesterol 71 mg/dL (23-92) 12/10/16 21:19 Amylase 127 U/L (29-103) H 12/11/16 05:05 Lipase 52 U/L (11-82) 12/11/16 05:05 TSH 6.49 uIU/ml (0.34-5.60) H 12/10/16 21:19 Urine Source CLEAN C 12/11/16 07:40 Urine Color YELLOW 12/11/16 07:40 Urine Clarity H (CLEAR) 12/11/16 07:40 Urine pH 7.0 (4.6 - 8.0) 12/11/16 07:40 Ur Specific [place] 1.010 (1.005-1.030) 12/11/16 07:40 Urine Protein 100 mg/dL (NEGATIVE) H 12/11/16 07:40 Urine Glucose (UA) 250 mg/dL (NEGATIVE) H 12/11/16 07:40 Urine Ketones NEGATIVE mg/dL (NEGATIVE) 12/11/16 07:40 Urine Blood SMALL (NEGATIVE) H 12/11/16 07:40 Urine Nitrate NEGATIVE (NEGATIVE) 12/11/16 07:40 Urine Bilirubin NEGATIVE (NEGATIVE) 12/11/16 07:40 Urine Urobilinogen 0.2 E.U./dL (0.2 - 1.0) 12/11/16 07:40 Ur Leukocyte Esterase NEGATIVE (NEGATIVE) 12/11/16 07:40 Urine RBC 0-2 /hpf (0-5) H 12/11/16 07:40 Urine WBC 0-2 /hpf (0-5) 12/11/16 07:40 Ur Epithelial Cells OCCASIONAL /lpf (FEW) 12/11/16 07:40 Urine Bacteria NONE SEEN /hpf (NONE SEEN) 12/11/16 07:40 Levetiracetam 42.0 ug/mL (10.0-40.0) H 12/10/16 21:19 Hepatitis A IgM Ab Negative (Negative) 12/12/16 06:30 Hep Bs Antigen Negative (Negative) 12/12/16 06:30 Hep B Core IgM Ab Negative (Negative) 12/12/16 06:30 Hepatitis C Antibody 0.1 s/co ratio (0.0-0.9) 12/12/16 06:30 - Physical Exam Vitals and I&O: Vital Signs Temp 98.9 F 12/15/16 00:00 Pulse 112 12/15/16 04:00 Resp 18 12/15/16 04:00 BP 100/61 12/15/16 04:00 Pulse Ox 100 12/15/16 04:00 Intake & Output 12/14/16 12/15/16 12/15/16 18:59 06:59 18:59 Intake Total 547.333 965.334 Balance 547.333 965.334 Weight (lbs) 46.266 kg Intake: Intake, IV Amount 547.333 965.334 D5-0.45NS 1,000 ml @ 40 497.333 865.334 mls/hr IV .Q24H [facility] Rx#: [id number] Piperacillin Sodium/ 50 100 Tazobact 2.25 gm In Sodium Chloride 0.9% 50 ml @ 100 mls/hr IV Q8HR [facility] Rx#:[id number] Other: # Voids 0 # Bowel Movements 2 Active Medications: Current Medications Piperacillin Sod/Tazobactam (Sod 2.25 gm/ Sodium Chloride) 50 mls @ 100 mls/hr IV Q8HR RAD[facility] Stop: 02/09/17 01:44 Last Infusion: 12/15/16 05:08 Dose: Infused Dextrose/Sodium Chloride (D5-0.45ns) 1,000 mls @ 40 mls/hr IV .Q24H [facility] Stop: 02/10/17 06:50 Last Infusion: 12/15/16 06:00 Dose: 40 mls/hr Ibuprofen (Advil) 600 mg PO Q6HR PRN PRN Reason: Severe Pain Stop: 02/12/17 21:54 Last Admin: 12/15/16 05:15 Dose: 600 mg Insulin Aspart (Novolog Insulin Sliding Scale) 0 units SUBQ ACHS RADHA PRN Reason: Protocol Stop: 02/09/17 07:29 Last Admin: 12/15/16 06:45 Dose: Not Given Levetiracetam (Keppra) 500 mg PO BID RADHA Stop: 02/09/17 08:59 Last Admin: 12/14/16 17:49 Dose: 500 mg Miscellaneous (Zosyn Iv Per Pharmacy) 1 ea MC PRN PRN PRN Reason: PROTOCOL Stop: 02/09/17 04:59 Ondansetron HCl (Zofran) 4 mg IV Q6HR PRN PRN Reason: Nausea / Vomiting Stop: 02/09/17 01:22 Sitagliptin Phosphate (Januvia) 25 mg PO DAILY RADHA Stop: 02/10/17 08:59 Last Admin: 12/14/16 08:14 Dose: 25 mg - Procedures Procedures: Procedures Procedure Code Date ABDOMEN SURGERY PROCEDURE 00317 10/21/16 DILATION OF COMMON BILE DUCT, ENDO [id number] 12/11/16 EGD BIOPSY SINGLE/MULTIPLE 09994 02/20/16 ENDO CHOLANGIOPANCREATOGRAPH 55472 12/11/16 EXCISION OF DUODENUM, ENDO, DIAGN 4PH89RS 02/20/16 EXCISION OF STOMACH, PYLORUS, ENDO, DIAGN 9TB25NV 02/20/16 INTRODUCTION OF SERUM/TOX/VACCINE INTO MUSCLE, PERC APPROACH 6V2630N 11/05/16 PERFORMANCE OF URINARY FILTRATION, MULTIPLE 5Q6W89H 10/21/16 PERFORMANCE OF URINARY FILTRATION, SINGLE 2G3M73L 11/05/16 RELEASE GREATER OMENTUM, OPEN APPROACH 4MEL4PE 10/21/16 RELEASE LIVER, OPEN APPROACH 0YM68KQ 10/21/16 REMOVAL OF GALLBLADDER 22655 10/21/16 RESECTION OF GALLBLADDER, OPEN APPROACH 5FN35QN 10/21/16 TRANSFUSE NONAUT RED BLOOD CELLS IN PERIPH VEIN, PERC 91810O2 11/05/16 Assessment/Plan - Problem List Patient Problems: All Active Problems NOT FEELING GOOD WITH NAUSEA (Acute) The administrative codes within the IMO content you are accessing may have as of 02/06/2016. Please contact your IT Dept/Help Desk and request the latest Regulatory release be installed. IT Dept/Help Desk- Please refer to our FAQ page ([email or web address]) or contact [employer] Customer Support at [email or web address] (Acute ~02/20/16) WEAKNESS WITH RIGHT LOWER QUAD PAIN (Acute) WEAKNESS WITH RIGHT LOWER QUAD PAIN (Acute) Nutritional Asmnt/Malnutr-PDOC - Dietary Evaluation Malnutrition Findings (Please click <Entered> for more info): Nutritional Asmnt/Malnutrition Start: 12/12/16 14: 00 Text: Status: Complete Freq: Document 12/12/16 14:00 [facility] (Rec: 12/12/16 14:10 [facility] [id number]) Nutritional Asmnt/Malnutrition Patient General Information Nutritional Screening High Risk Screening Diagnosis Common bile duct dilation Pertinent Medical Hx/Surgical Hx HTN, DM, ESRD on dialysis, seizures, cholecystectomy Subjective Information Pt is a 31-year-old male admitted with chief complaint of right sided abdominal pain. RD attempted visit twice but pt was sound asleep on both occasions. Pt appears to have a small body frame but no signs of muscle or fat depletion. IBW calculated with consideration of small body frame. Per ER report, pt has had vomiting and diarrhea for several days; no current reports of GI distress. Current Diet Order/ Nutrition Support Clear liquid Patient / S.O Can Pertinent Medications D5-0.45 ns, Dilaudid, Piperacillin, Januvia Pertinent Labs (12/10) Na 133L, Glucose 185H, LDL Cholesterol 30L. (12/12) Na 131L, K 5.5H, BUN 59H, Creatinine 8.4H, Total Bilirubin 3.8H, AST 330H, ALT 340H, Alkaline Phosphatase 522H, Amylase 127H Nutritional Hx/Data Height 1.57 m Height (Calculated Centimeters) 157.5 Current Weight (lbs) 47.174 kg Weight (Calculated Kilograms) 47.2 Weight (Calculated Grams) 10766.6 Usual body Weight (lbs) 104 % Usual Body Weight 100 [place] Body Weight 106 % [place] Body Weight 98 Recent Weight Change No Weight Status Approriate GI Symptoms GI Symptoms Vomitting Diarrhea Food Allergies No Skin Integrity/Comment: Rohit 21. Skin intact. Estimated Nutritional Goals BEE in Kcals: Using Current wt Calories/Kcals/Kg Based on current wt 47.2 kg with consideration of dialysis Kcals Calculated 6969-0347 kcals/day (30-35 kcals/kg) Protein: Using Current wt Protein g/kg: Based on current wt 47.2 kg with consideration of dialysis Protein Calculated 57-71 gm/day (1.2-1.5 gm/kg) Fluid: ml Per MD/DO Nutritional Problem 1. Problem Problem Inadequate energy/protein intake related to Etiology altered GI function with vomiting and diarrhea as evidenced by Signs/Symptoms: need for clear liquid diet. Malnutrition Alert Protein-Calorie Malnutrition N/A Malnutrition Related to Morbid Obesity Malnutrition related to morbid obesity No Intervention/Recommendation Recommendations by RD Increase Calorie Intake Protein supplementation Comments 1. Recommend Boost Breeze TID with clear liquid diet to promote nutritional intake. Encourage oral intake. 2. Advance as tolerated to renal diet with Novosource Renal BID. Expected Outcomes/Goals Expected Outcomes/Goals Have pt meet at least 75% of estimated nutritional needs with acceptable tolerance. Physician Parameters for PEM Normal Weight % 90% - 110% (Normal) Body Mass Index (BMI) 18 - 24 (Mild) Serum Albumin (g/dl) 3.5 - 5.0 (Normal)
[2016-12-15 08:28] LABS: CREATININE - SERUM 6.5 mg/dL (0.7-1.3); HEMATOCRIT 26.5 % (39.0-49.0); WHITE BLOOD COUNT 3.1 Th/cmm (4.8-10.8)
[2016-12-15 09:43] LABS: BASOPHIL 1 % (0-3); EOSINOPHIL 7 % (0-5); NEUTROPHILS 41 % (40-80); TOTAL CELLS COUNTED 100
[2016-12-15 09:44] LABS: ANISOCYTOSIS 1+; PLATELET ESTIMATE DECREASED PLATELETS (NORMAL); PLATELET MORPHOLOGY NORMAL (NORMAL)
--- NOTE | 2016-12-15 16:07 | General Progress Note ---
Subjective - Review of Systems Service Date: 12/15/16 Events since last encounter: PT HAD BLOODY STOOL Subjective: Laboratory Results - last 24 hr 12/14/16 12/14/16 12/15/16 16:49 21:09 05:49 WBC 3.1 L RBC 3.03 L Hgb 9.2 L Hct 26.5 L D MCV 87.7 MCH 30.3 H MCHC Differential 34.5 RDW 16.2 Plt Count 104 L MPV 8.3 Neutrophils (Manual) 41 Lymphocytes 42 Monocytes 9 Eosinophils 7 H Basophils 1 Platelet Estimate DECREASED PLATELETS Platelet Morphology NORMAL Anisocytosis 1+ RBC Morph Micro Appear ABNORMAL Sodium Potassium Chloride Carbon Dioxide Anion Gap BUN Creatinine Est GFR ( Amer) Est GFR (Non-Af Amer) BUN/Creatinine Ratio Glucose POC Glucose 139 H 184 H Calcium Total Bilirubin AST ALT Alkaline Phosphatase Total Protein Albumin Globulin Albumin/Globulin Ratio Amylase Lipase 12/15/16 12/15/16 12/15/16 05:49 05:54 11:31 WBC RBC Hgb Hct MCV MCH MCHC Differential RDW Plt Count MPV Neutrophils (Manual) Lymphocytes Monocytes Eosinophils Basophils Platelet Estimate Platelet Morphology Anisocytosis RBC Morph Micro Appear Sodium 135 L Potassium 3.3 L Chloride 98 Carbon Dioxide 25.6 Anion Gap 14.7 BUN 35 H Creatinine 6.5 H* Est GFR ( Amer) 12.8 Est GFR (Non-Af Amer) 10.6 BUN/Creatinine Ratio 5.4 Glucose 112 H POC Glucose 117 H 132 H Calcium 9.1 Total Bilirubin 8.6 H AST 107 H ALT 152 H Alkaline Phosphatase 475 H Total Protein 5.6 L Albumin 3.2 L Globulin 2.4 Albumin/Globulin Ratio 1.3 Amylase 107 H Lipase 48 Vital Signs Temp 99.4 F 12/15/16 12:00 Pulse 95 12/15/16 12:00 Resp 16 12/15/16 12:00 BP 112/77 12/15/16 12:00 Pulse Ox 98 12/15/16 12:00 Intake & Output 12/14/16 12/15/16 12/15/16 18:59 06:59 18:59 Intake Total 547.333 965.334 Balance 547.333 965.334 Weight (lbs) 46.266 kg Intake: Intake, IV Amount 547.333 965.334 D5-0.45NS 1,000 ml @ 40 497.333 865.334 mls/hr IV .Q24H [facility] Rx#: [id number] Piperacillin Sodium/ 50 100 Tazobact 2.25 gm In Sodium Chloride 0.9% 50 ml @ 100 mls/hr IV Q8HR [facility] Rx#:[id number] Other: # Voids 0 # Bowel Movements 2 LUNGS CTA B/L CARDIAC S1 S2 RRR ABDOMEN SOFT, POSITIVE BOWEL SOUNDS EXTREMITY NO EDEMA NEURO ALERT AND ORIENTED Current Medications Piperacillin Sod/Tazobactam (Sod 2.25 gm/ Sodium Chloride) 50 mls @ 100 mls/hr IV Q8HR [facility] Stop: 02/09/17 01:44 Last Admin: 12/15/16 12:12 Dose: 100 mls/hr Dextrose/Sodium Chloride (D5-0.45ns) 1,000 mls @ 40 mls/hr IV .Q24H [facility] Stop: 02/10/17 06:50 Last Infusion: 12/15/16 06:00 Dose: 40 mls/hr Ibuprofen (Advil) 600 mg PO Q6HR PRN PRN Reason: Severe Pain Stop: 02/12/17 21:54 Last Admin: 12/15/16 11:29 Dose: 600 mg Insulin Aspart (Novolog Insulin Sliding Scale) 0 units SUBQ ACHS [facility] PRN Reason: Protocol Stop: 02/09/17 07:29 Last Admin: 12/15/16 11:36 Dose: Not Given Levetiracetam (Keppra) 500 mg PO BID [facility] Stop: 02/09/17 08:59 Last Admin: 12/15/16 09:25 Dose: 500 mg Miscellaneous (Zosyn Iv Per Pharmacy) 1 ea MC PRN PRN PRN Reason: PROTOCOL Stop: 02/09/17 04:59 Ondansetron HCl (Zofran) 4 mg IV Q6HR PRN PRN Reason: Nausea / Vomiting Stop: 02/09/17 01:22 Pantoprazole Sodium (Protonix) 40 mg PO BID [facility] Stop: 02/13/17 16:59 Sitagliptin Phosphate (Januvia) 25 mg PO DAILY [facility] Stop: 02/10/17 08:59 Last Admin: 12/15/16 09:25 Dose: 25 mg Diagnoses ANEMIA IN CHRONIC KIDNEY DISEASE 12/11/16 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 KIDNEY DISEASE 12/11/16 HYPO-OSMOLALITY AND HYPONATREMIA 12/11/16 EPILEPSY, UNSP, NOT INTRACTABLE, WITHOUT STATUS EPILEPTICUS 12/11/16 UNSPECIFIED HEARING LOSS, BILATERAL 12/11/16 HYP CHR KIDNEY DISEASE W STAGE 5 CHR KIDNEY DISEASE OR ESRD 12/11/16 CALCULUS OF BILE DUCT W/O CHOLANGITIS OR CHOLECYST W OBST 12/11/16 END STAGE RENAL DISEASE 12/11/16 UNSPECIFIED ABDOMINAL PAIN 12/11/16 ACQUIRED ABSENCE OF OTHER SPECIFIED PARTS OF DIGESTIVE TRACT 12/11/16 DEPENDENCE ON RENAL DIALYSIS 12/11/16 PLAN * CONTINUE HD SUPPORT * GI CONSULT TO FOLLOW UP GI BLEED * HD IN AM Objective - Results Result Diagrams: 12/15/16 05:49 12/15/16 05:49 Recent Labs: Laboratory Last Values WBC 3.1 Th/cmm (4.8-10.8) L 12/15/16 05:49 RBC 3.03 Mil/cmm (4.30-5.70) L 12/15/16 05:49 Hgb 9.2 gm/dL (13.2-17.3) L 12/15/16 05:49 Hct 26.5 % (39.0-49.0) L D 12/15/16 05:49 MCV 87.7 fl (80-99) 12/15/16 05:49 MCH 30.3 pg (26.0-30.0) H 12/15/16 05:49 MCHC Differential 34.5 pg (28.0-36.0) 12/15/16 05:49 RDW 16.2 % (11.5-20.0) 12/15/16 05:49 Plt Count 104 Th/cmm (150-400) L 12/15/16 05:49 MPV 8.3 fl 12/15/16 05:49 Neutrophils % 56.3 % (40.0-80.0) 12/13/16 05:35 Band Neutrophils % 0 % (0-10) 12/14/16 06:36 Lymphocytes % 25.8 % (20.0-50.0) 12/13/16 05:35 Monocytes % 9.4 % (2.0-10.0) 12/13/16 05:35 Eosinophils % 8.4 % (0.0-5.0) H 12/13/16 05:35 Basophils % 0.1 % (0.0-2.0) 12/13/16 05:35 Neutrophils (Manual) 41 % (40-80) 12/15/16 05:49 Lymphocytes 42 % (20-50) 12/15/16 05:49 Monocytes 9 % (2-10) 12/15/16 05:49 Eosinophils 7 % (0-5) H 12/15/16 05:49 Basophils 1 % (0-3) 12/15/16 05:49 Platelet Estimate DECREASED PLATELETS (NORMAL) 12/15/16 05:49 Platelet Morphology NORMAL (NORMAL) 12/15/16 05:49 Anisocytosis 1+ 12/15/16 05:49 RBC Morph Micro Appear ABNORMAL (NORMAL) 12/15/16 05:49 PT 11.6 SECONDS (9.5-11.5) H 12/13/16 05:35 INR 1.11 (0.5-1.4) 12/13/16 05:35 PTT (Actin FS) 25.4 SECONDS (26.0-38.0) L 12/10/16 21:19 Sodium 135 mEq/L (136-145) L 12/15/16 05:49 Potassium 3.3 mEq/L (3.5-5.1) L 12/15/16 05:49 Chloride 98 mEq/L (98-107) 12/15/16 05:49 Carbon Dioxide 25.6 mEq/L (21.0-31.0) 12/15/16 05:49 Anion Gap 14.7 (7.0-16.0) 12/15/16 05:49 BUN 35 mg/dL (7-25) H 12/15/16 05:49 Creatinine 6.5 mg/dL (0.7-1.3) H* 12/15/16 05:49 Est GFR ( Amer) 12.8 ml/min (>90) 12/15/16 05:49 Est GFR (Non-Af Amer) 10.6 ml/min 12/15/16 05:49 BUN/Creatinine Ratio 5.4 12/15/16 05:49 Glucose 112 mg/dL (70-105) H 12/15/16 05:49 POC Glucose 132 MG/DL (70 - 105) H 12/15/16 11:31 Hemoglobin A1c % 5.0 % (4.0-6.0) 12/10/16 21:19 Calcium 9.1 mg/dL (8.6-10.3) 12/15/16 05:49 Total Bilirubin 8.6 mg/dL (0.3-1.0) H 12/15/16 05:49 Direct Bilirubin 5.13 mg/dL (0.0-0.2) H 12/12/16 06:30 AST 107 U/L (13-39) H 12/15/16 05:49 ALT 152 U/L (7-52) H 12/15/16 05:49 Alkaline Phosphatase 475 U/L (34-104) H 12/15/16 05:49 Troponin I < 0.01 ng/mL (0.01-0.05) L 12/10/16 21:19 Total Protein 5.6 gm/dL (6.0-8.3) L 12/15/16 05:49 Albumin 3.2 gm/dL (4.2-5.5) L 12/15/16 05:49 Globulin 2.4 gm/dL 12/15/16 05:49 Albumin/Globulin Ratio 1.3 (1.0-1.8) 12/15/16 05:49 Triglycerides 46 mg/dL (<150) 12/10/16 21:19 Cholesterol 122 mg/dL (<200) 12/10/16 21:19 LDL Cholesterol Direct 30 mg/dL (75-193) L 12/10/16 21:19 HDL Cholesterol 71 mg/dL (23-92) 12/10/16 21:19 Amylase 107 U/L (29-103) H 12/15/16 05:49 Lipase 48 U/L (11-82) 12/15/16 05:49 TSH 6.49 uIU/ml (0.34-5.60) H 12/10/16 21:19 Urine Source CLEAN C 12/11/16 07:40 Urine Color YELLOW 12/11/16 07:40 Urine Clarity H (CLEAR) 12/11/16 07:40 Urine pH 7.0 (4.6 - 8.0) 12/11/16 07:40 Ur Specific [place] 1.010 (1.005-1.030) 12/11/16 07:40 Urine Protein 100 mg/dL (NEGATIVE) H 12/11/16 07:40 Urine Glucose (UA) 250 mg/dL (NEGATIVE) H 12/11/16 07:40 Urine Ketones NEGATIVE mg/dL (NEGATIVE) 12/11/16 07:40 Urine Blood SMALL (NEGATIVE) H 12/11/16 07:40 Urine Nitrate NEGATIVE (NEGATIVE) 12/11/16 07:40 Urine Bilirubin NEGATIVE (NEGATIVE) 12/11/16 07:40 Urine Urobilinogen 0.2 E.U./dL (0.2 - 1.0) 12/11/16 07:40 Ur Leukocyte Esterase NEGATIVE (NEGATIVE) 12/11/16 07:40 Urine RBC 0-2 /hpf (0-5) H 12/11/16 07:40 Urine WBC 0-2 /hpf (0-5) 12/11/16 07:40 Ur Epithelial Cells OCCASIONAL /lpf (FEW) 12/11/16 07:40 Urine Bacteria NONE SEEN /hpf (NONE SEEN) 12/11/16 07:40 Levetiracetam 42.0 ug/mL (10.0-40.0) H 12/10/16 21:19 Hepatitis A IgM Ab Negative (Negative) 12/12/16 06:30 Hep Bs Antigen Negative (Negative) 12/12/16 06:30 Hep B Core IgM Ab Negative (Negative) 12/12/16 06:30 Hepatitis C Antibody 0.1 s/co ratio (0.0-0.9) 12/12/16 06:30 - Physical Exam Vitals and I&O: Vital Signs Temp 99.4 F 12/15/16 12:00 Pulse 95 12/15/16 12:00 Resp 16 12/15/16 12:00 BP 112/77 12/15/16 12:00 Pulse Ox 98 12/15/16 12:00 Intake & Output 12/14/16 12/15/16 12/15/16 18:59 06:59 18:59 Intake Total 547.333 965.334 Balance 547.333 965.334 Weight (lbs) 46.266 kg Intake: Intake, IV Amount 547.333 965.334 D5-0.45NS 1,000 ml @ 40 497.333 865.334 mls/hr IV .Q24H [facility] Rx#: [id number] Piperacillin Sodium/ 50 100 Tazobact 2.25 gm In Sodium Chloride 0.9% 50 ml @ 100 mls/hr IV Q8HR [facility] Rx#:[id number] Other: # Voids 0 # Bowel Movements 2 Active Medications: Current Medications Piperacillin Sod/Tazobactam (Sod 2.25 gm/ Sodium Chloride) 50 mls @ 100 mls/hr IV Q8HR [facility] Stop: 02/09/17 01:44 Last Admin: 12/15/16 12:12 Dose: 100 mls/hr Dextrose/Sodium Chloride (D5-0.45ns) 1,000 mls @ 40 mls/hr IV .Q24H [facility] Stop: 02/10/17 06:50 Last Infusion: 12/15/16 06:00 Dose: 40 mls/hr Ibuprofen (Advil) 600 mg PO Q6HR PRN PRN Reason: Severe Pain Stop: 02/12/17 21:54 Last Admin: 12/15/16 11:29 Dose: 600 mg Insulin Aspart (Novolog Insulin Sliding Scale) 0 units SUBQ ACHS [facility] PRN Reason: Protocol Stop: 02/09/17 07:29 Last Admin: 12/15/16 11:36 Dose: Not Given Levetiracetam (Keppra) 500 mg PO BID [facility] Stop: 02/09/17 08:59 Last Admin: 12/15/16 09:25 Dose: 500 mg Miscellaneous (Zosyn Iv Per Pharmacy) 1 ea MC PRN PRN PRN Reason: PROTOCOL Stop: 02/09/17 04:59 Ondansetron HCl (Zofran) 4 mg IV Q6HR PRN PRN Reason: Nausea / Vomiting Stop: 02/09/17 01:22 Pantoprazole Sodium (Protonix) 40 mg PO BID [facility] Stop: 02/13/17 16:59 Sitagliptin Phosphate (Januvia) 25 mg PO DAILY [facility] Stop: 02/10/17 08:59 Last Admin: 12/15/16 09:25 Dose: 25 mg - Procedures Procedures: Procedures Procedure Code Date ABDOMEN SURGERY PROCEDURE 21839 10/21/16 DILATION OF COMMON BILE DUCT, ENDO [id number] 12/11/16 EGD BIOPSY SINGLE/MULTIPLE 30122 02/20/16 ENDO CHOLANGIOPANCREATOGRAPH 32694 12/11/16 EXCISION OF DUODENUM, ENDO, DIAGN [id number] 02/20/16 EXCISION OF STOMACH, PYLORUS, ENDO, DIAGN [id number] 02/20/16 INTRODUCTION OF SERUM/TOX/VACCINE INTO MUSCLE, PERC APPROACH [id number] 11/05/16 PERFORMANCE OF URINARY FILTRATION, MULTIPLE [id number] 10/21/16 PERFORMANCE OF URINARY FILTRATION, SINGLE [id number] 11/05/16 RELEASE GREATER OMENTUM, OPEN APPROACH [id number] 10/21/16 RELEASE LIVER, OPEN APPROACH [id number] 10/21/16 REMOVAL OF GALLBLADDER 11326 10/21/16 RESECTION OF GALLBLADDER, OPEN APPROACH [id number] 10/21/16 TRANSFUSE NONAUT RED BLOOD CELLS IN PERIPH VEIN, PERC 68360D5 11/05/16 Assessment/Plan - Problem List Patient Problems: All Active Problems NOT FEELING GOOD WITH NAUSEA (Acute) The administrative codes within the [employer] content you are accessing may have as of 02/06/2016. Please contact your IT Dept/Help Desk and request the latest Regulatory release be installed. IT Dept/Help Desk- Please refer to our FAQ page ([email or web address]) or contact [employer] Customer Support at [email or web address] (Acute ~02/20/16) WEAKNESS WITH RIGHT LOWER QUAD PAIN (Acute) WEAKNESS WITH RIGHT LOWER QUAD PAIN (Acute) Nutritional Asmnt/Malnutr-PDOC - Dietary Evaluation Malnutrition Findings (Please click <Entered> for more info): Nutritional Asmnt/Malnutrition Start: 12/12/16 14: 00 Text: Status: Complete Freq: Document 12/12/16 14:00 [facility] (Rec: 12/12/16 14:10 [facility] [id number]) Nutritional Asmnt/Malnutrition Patient General Information Nutritional Screening High Risk Screening Diagnosis Common bile duct dilation Pertinent Medical Hx/Surgical Hx HTN, DM, ESRD on dialysis, seizures, cholecystectomy Subjective Information Pt is a 31-year-old male admitted with chief complaint of right sided abdominal pain. RD attempted visit twice but pt was sound asleep on both occasions. Pt appears to have a small body frame but no signs of muscle or fat depletion. IBW calculated with consideration of small body frame. Per ER report, pt has had vomiting and diarrhea for several days; no current reports of GI distress. Current Diet Order/ Nutrition Support Clear liquid Patient / S.O Can Pertinent Medications D5-0.45 ns, Dilaudid, Piperacillin, Januvia Pertinent Labs (12/10) Na 133L, Glucose 185H, LDL Cholesterol 30L. (12/12) Na 131L, K 5.5H, BUN 59H, Creatinine 8.4H, Total Bilirubin 3.8H, AST 330H, ALT 340H, Alkaline Phosphatase 522H, Amylase 127H Nutritional Hx/Data Height 1.57 m Height (Calculated Centimeters) 157.5 Current Weight (lbs) 47.174 kg Weight (Calculated Kilograms) 47.2 Weight (Calculated Grams) 40570.6 Usual body Weight (lbs) 104 % Usual Body Weight 100 [place] Body Weight 106 % [place] Body Weight 98 Recent Weight Change No Weight Status Approriate GI Symptoms GI Symptoms Vomitting Diarrhea Food Allergies No Skin Integrity/Comment: Rohit 21. Skin intact. Estimated Nutritional Goals BEE in Kcals: Using Current wt Calories/Kcals/Kg Based on current wt 47.2 kg with consideration of dialysis Kcals Calculated 7971-0888 kcals/day (30-35 kcals/kg) Protein: Using Current wt Protein g/kg: Based on current wt 47.2 kg with consideration of dialysis Protein Calculated 57-71 gm/day (1.2-1.5 gm/kg) Fluid: ml Per MD/DO Nutritional Problem 1. Problem Problem Inadequate energy/protein intake related to Etiology altered GI function with vomiting and diarrhea as evidenced by Signs/Symptoms: need for clear liquid diet. Malnutrition Alert Protein-Calorie Malnutrition N/A Malnutrition Related to Morbid Obesity Malnutrition related to morbid obesity No Intervention/Recommendation Recommendations by RD Increase Calorie Intake Protein supplementation Comments 1. Recommend Boost Breeze TID with clear liquid diet to promote nutritional intake. Encourage oral intake. 2. Advance as tolerated to renal diet with Novosource Renal BID. Expected Outcomes/Goals Expected Outcomes/Goals Have pt meet at least 75% of estimated nutritional needs with acceptable tolerance. Physician Parameters for PEM Normal Weight % 90% - 110% (Normal) Body Mass Index (BMI) 18 - 24 (Mild) Serum Albumin (g/dl) 3.5 - 5.0 (Normal)
[2016-12-15 17:46] LABS: HEMATOCRIT 21.8 % (39.0-49.0); HEMOGLOBIN 7.5 gm/dL (13.2-17.3)
[2016-12-15] MEDS: Pantoprazole 40 mg EC Tab PO SCH (18:50)
[2016-12-15] MEDS ORDERED: Pantoprazole 80 MG in Sodium Chloride 0.9% 100 ML IV ONE (19:45)
--- NOTE | 2016-12-15 20:27 | General Progress Note ---
Subjective - Review of Systems Subjective: Patient was seen and examined. Patient started having rectal bleed and coffee- ground emesis. Patient's became hypotensive. Patient is transferred to ICU. Patient is seen by chipper machine operator today. Patient underwent upper endoscopy, findings are reported by chipper machine operator and are discussed with patient's family. Question about cirrhosis of liver is also reported by chipper machine operator. Family isn't aware of chronic liver disease history. Objective - Results Result Diagrams: 12/15/16 17:09 12/15/16 17:23 Recent Labs: Laboratory Last Values WBC 3.1 Th/cmm (4.8-10.8) L 12/15/16 05:49 RBC 3.03 Mil/cmm (4.30-5.70) L 12/15/16 05:49 Hgb 7.5 gm/dL (13.2-17.3) L* D 12/15/16 17:09 Hct 21.8 % (39.0-49.0) L* D 12/15/16 17:09 MCV 87.7 fl (80-99) 12/15/16 05:49 MCH 30.3 pg (26.0-30.0) H 12/15/16 05:49 MCHC Differential 34.5 pg (28.0-36.0) 12/15/16 05:49 RDW 16.2 % (11.5-20.0) 12/15/16 05:49 Plt Count 104 Th/cmm (150-400) L 12/15/16 05:49 MPV 8.3 fl 12/15/16 05:49 Neutrophils % 56.3 % (40.0-80.0) 12/13/16 05:35 Band Neutrophils % 0 % (0-10) 12/14/16 06:36 Lymphocytes % 25.8 % (20.0-50.0) 12/13/16 05:35 Monocytes % 9.4 % (2.0-10.0) 12/13/16 05:35 Eosinophils % 8.4 % (0.0-5.0) H 12/13/16 05:35 Basophils % 0.1 % (0.0-2.0) 12/13/16 05:35 Neutrophils (Manual) 41 % (40-80) 12/15/16 05:49 Lymphocytes 42 % (20-50) 12/15/16 05:49 Monocytes 9 % (2-10) 12/15/16 05:49 Eosinophils 7 % (0-5) H 12/15/16 05:49 Basophils 1 % (0-3) 12/15/16 05:49 Platelet Estimate DECREASED PLATELETS (NORMAL) 12/15/16 05:49 Platelet Morphology NORMAL (NORMAL) 12/15/16 05:49 Anisocytosis 1+ 12/15/16 05:49 RBC Morph Micro Appear ABNORMAL (NORMAL) 12/15/16 05:49 PT 11.6 SECONDS (9.5-11.5) H 12/13/16 05:35 INR 1.11 (0.5-1.4) 12/13/16 05:35 PTT (Actin FS) 25.4 SECONDS (26.0-38.0) L 12/10/16 21:19 Sodium 135 mEq/L (136-145) L 12/15/16 05:49 Potassium 3.4 mEq/L (3.5-5.1) L 12/15/16 17:23 Chloride 98 mEq/L (98-107) 12/15/16 05:49 Carbon Dioxide 25.6 mEq/L (21.0-31.0) 12/15/16 05:49 Anion Gap 14.7 (7.0-16.0) 12/15/16 05:49 BUN 35 mg/dL (7-25) H 12/15/16 05:49 Creatinine 6.5 mg/dL (0.7-1.3) H* 12/15/16 05:49 Est GFR ( Amer) 12.8 ml/min (>90) 12/15/16 05:49 Est GFR (Non-Af Amer) 10.6 ml/min 12/15/16 05:49 BUN/Creatinine Ratio 5.4 12/15/16 05:49 Glucose 112 mg/dL (70-105) H 12/15/16 05:49 POC Glucose 139 MG/DL (70 - 105) H 12/15/16 18:01 Hemoglobin A1c % 5.0 % (4.0-6.0) 12/10/16 21:19 Calcium 9.1 mg/dL (8.6-10.3) 12/15/16 05:49 Total Bilirubin 8.6 mg/dL (0.3-1.0) H 12/15/16 05:49 Direct Bilirubin 5.13 mg/dL (0.0-0.2) H 12/12/16 06:30 AST 107 U/L (13-39) H 12/15/16 05:49 ALT 152 U/L (7-52) H 12/15/16 05:49 Alkaline Phosphatase 475 U/L (34-104) H 12/15/16 05:49 Troponin I < 0.01 ng/mL (0.01-0.05) L 12/10/16 21:19 Total Protein 5.6 gm/dL (6.0-8.3) L 12/15/16 05:49 Albumin 3.2 gm/dL (4.2-5.5) L 12/15/16 05:49 Globulin 2.4 gm/dL 12/15/16 05:49 Albumin/Globulin Ratio 1.3 (1.0-1.8) 12/15/16 05:49 Triglycerides 46 mg/dL (<150) 12/10/16 21:19 Cholesterol 122 mg/dL (<200) 12/10/16 21:19 LDL Cholesterol Direct 30 mg/dL (75-193) L 12/10/16 21:19 HDL Cholesterol 71 mg/dL (23-92) 12/10/16 21:19 Amylase 107 U/L (29-103) H 12/15/16 05:49 Lipase 48 U/L (11-82) 12/15/16 05:49 TSH 6.49 uIU/ml (0.34-5.60) H 12/10/16 21:19 Urine Source CLEAN C 12/11/16 07:40 Urine Color YELLOW 12/11/16 07:40 Urine Clarity H (CLEAR) 12/11/16 07:40 Urine pH 7.0 (4.6 - 8.0) 12/11/16 07:40 Ur Specific [place] 1.010 (1.005-1.030) 12/11/16 07:40 Urine Protein 100 mg/dL (NEGATIVE) H 12/11/16 07:40 Urine Glucose (UA) 250 mg/dL (NEGATIVE) H 12/11/16 07:40 Urine Ketones NEGATIVE mg/dL (NEGATIVE) 12/11/16 07:40 Urine Blood SMALL (NEGATIVE) H 12/11/16 07:40 Urine Nitrate NEGATIVE (NEGATIVE) 12/11/16 07:40 Urine Bilirubin NEGATIVE (NEGATIVE) 12/11/16 07:40 Urine Urobilinogen 0.2 E.U./dL (0.2 - 1.0) 12/11/16 07:40 Ur Leukocyte Esterase NEGATIVE (NEGATIVE) 12/11/16 07:40 Urine RBC 0-2 /hpf (0-5) H 12/11/16 07:40 Urine WBC 0-2 /hpf (0-5) 12/11/16 07:40 Ur Epithelial Cells OCCASIONAL /lpf (FEW) 12/11/16 07:40 Urine Bacteria NONE SEEN /hpf (NONE SEEN) 12/11/16 07:40 Levetiracetam 42.0 ug/mL (10.0-40.0) H 12/10/16 21:19 Hepatitis A IgM Ab Negative (Negative) 12/12/16 06:30 Hep Bs Antigen Negative (Negative) 12/12/16 06:30 Hep B Core IgM Ab Negative (Negative) 12/12/16 06:30 Hepatitis C Antibody 0.1 s/co ratio (0.0-0.9) 12/12/16 06:30 Blood Type AB POSITIVE 12/15/16 17:09 Antibody Screen NEGATIVE 12/15/16 17:09 - Physical Exam Vitals and I&O: Vital Signs Temp 97.6 F 12/15/16 17:45 Pulse 102 12/15/16 18:00 Resp 18 12/15/16 18:00 BP 83/56 12/15/16 18:00 Pulse Ox 100 12/15/16 17:45 Intake & Output 12/15/16 12/15/16 12/16/16 06:59 18:59 06:59 Intake Total 965.334 Balance 965.334 Weight (lbs) 46.266 kg Intake: Intake, IV Amount 965.334 D5-0.45NS 1,000 ml @ 40 865.334 mls/hr IV .Q24H [facility]HA Rx#: [id number] Piperacillin Sodium/ 100 Tazobact 2.25 gm In Sodium Chloride 0.9% 50 ml @ 100 mls/hr IV Q8HR [facility] Rx#:[id number] Other: # Voids 0 # Bowel Movements 2 Stool Characteristics Bloody Active Medications: Current Medications Piperacillin Sod/Tazobactam (Sod 2.25 gm/ Sodium Chloride) 50 mls @ 100 mls/hr IV Q8HR [facility] Stop: 02/09/17 01:44 Last Admin: 12/15/16 12:12 Dose: 100 mls/hr Dextrose/Sodium Chloride (D5-0.45ns) 1,000 mls @ 40 mls/hr IV .Q24H [facility] Stop: 02/10/17 06:50 Last Infusion: 12/15/16 06:00 Dose: 40 mls/hr Sodium Chloride (Nacl 0.9%) 1,000 mls @ 50 mls/hr IV .Q20H [facility] Stop: 02/13/17 16:17 Pantoprazole Sodium 80 mg/ (Sodium Chloride) 100 mls @ 10 mls/hr IV X1 [facility] Stop: 02/13/17 19:44 Ibuprofen (Advil) 600 mg PO Q6HR PRN PRN Reason: Severe Pain Stop: 02/12/17 21:54 Last Admin: 12/15/16 11:29 Dose: 600 mg Insulin Aspart (Novolog Insulin Sliding Scale) 0 units SUBQ ACHS [facility] PRN Reason: Protocol Stop: 02/09/17 07:29 Last Admin: 12/15/16 18:50 Dose: Not Given Levetiracetam (Keppra) 500 mg PO BID [facility] Stop: 02/09/17 08:59 Last Admin: 12/15/16 18:50 Dose: Not Given Miscellaneous (Zosyn Iv Per Pharmacy) 1 ea MC PRN PRN PRN Reason: PROTOCOL Stop: 02/09/17 04:59 Ondansetron HCl (Zofran) 4 mg IV Q6HR PRN PRN Reason: Nausea / Vomiting Stop: 02/09/17 01:22 Pantoprazole Sodium (Protonix) 40 mg PO BID [facility] Stop: 02/13/17 16:59 Last Admin: 12/15/16 18:50 Dose: Not Given Sitagliptin Phosphate (Januvia) 25 mg PO DAILY [facility] Stop: 02/10/17 08:59 Last Admin: 12/15/16 09:25 Dose: 25 mg General: Alert, Oriented x3, Mild distress HEENT: Atraumatic, Other (hard of hearing) Neck: Supple Cardiovascular: Regular rate, Normal S1, Normal S2 Lungs: Clear to auscultation Abdomen: Soft, Tender, Distended Extremities: Other (AV graft with BRUIT+) - Procedures Procedures: Procedures Procedure Code Date ABDOMEN SURGERY PROCEDURE 94352 10/21/16 DILATION OF COMMON BILE DUCT, ENDO [id number] 12/11/16 EGD BIOPSY SINGLE/MULTIPLE 55585 02/20/16 ENDO CHOLANGIOPANCREATOGRAPH 15622 12/11/16 EXCISION OF DUODENUM, ENDO, DIAGN [id number] 02/20/16 EXCISION OF STOMACH, PYLORUS, ENDO, DIAGN [id number] 02/20/16 INTRODUCTION OF SERUM/TOX/VACCINE INTO MUSCLE, PERC APPROACH [id number] 11/05/16 PERFORMANCE OF URINARY FILTRATION, MULTIPLE [id number] 10/21/16 PERFORMANCE OF URINARY FILTRATION, SINGLE [id number] 11/05/16 RELEASE GREATER OMENTUM, OPEN APPROACH [id number] 10/21/16 RELEASE LIVER, OPEN APPROACH [id number] 10/21/16 REMOVAL OF GALLBLADDER 70469 10/21/16 RESECTION OF GALLBLADDER, OPEN APPROACH [id number] 10/21/16 TRANSFUSE NONAUT RED BLOOD CELLS IN PERIPH VEIN, PERC 03153P1 11/05/16 Assessment/Plan - Problem List Patient Problems: All Active Problems NOT FEELING GOOD WITH NAUSEA (Acute) The administrative codes within the [employer] content you are accessing may have as of 02/06/2016. Please contact your IT Dept/Help Desk and request the latest Regulatory release be installed. IT Dept/Help Desk- Please refer to our FAQ page ([email or web address]) or contact [employer] Customer Support at [email or web address] (Acute ~02/20/16) WEAKNESS WITH RIGHT LOWER QUAD PAIN (Acute) WEAKNESS WITH RIGHT LOWER QUAD PAIN (Acute) - Assessment Assessment: Obstructive jaundice end-stage renal disease on hemodialysis Diabetes mellitus Seizure disorder Acute upper GI bleed after ERCP suspected bleeding from ERCP site. Acute hemorrhagic anemia status post blood transfusion Hypotension secondary to hypovolemia Questionable chronic liver disease Diffuse abdominal pain Status post exploratory laparotomy for cholelithiasis with cholecystectomy a few weeks ago Bilateral hearing loss. - Plan Plan: Pain control. ICU stay Cardiac monitoring. Blood transfusion. Hemodialysis as planned. Monitor blood sugar blood pressure. General nursing care. Workup for chronic liver disease. Follow-up lab. Seizure precautions. Seizure medications. Chronic management of his medical illnesses. Follow-up consultants recommendation. Care plan reviewed and discussed with staff and patient's family. Nutritional Asmnt/Malnutr-PDOC - Dietary Evaluation Malnutrition Findings (Please click <Entered> for more info): Nutritional Asmnt/Malnutrition Start: 12/12/16 14: 00 Text: Status: Complete Freq: Document 12/12/16 14:00 [facility] (Rec: 12/12/16 14:10 [facility] [id number]) Nutritional Asmnt/Malnutrition Patient General Information Nutritional Screening High Risk Screening Diagnosis Common bile duct dilation Pertinent Medical Hx/Surgical Hx HTN, DM, ESRD on dialysis, seizures, cholecystectomy Subjective Information Pt is a 31-year-old male admitted with chief complaint of right sided abdominal pain. RD attempted visit twice but pt was sound asleep on both occasions. Pt appears to have a small body frame but no signs of muscle or fat depletion. IBW calculated with consideration of small body frame. Per ER report, pt has had vomiting and diarrhea for several days; no current reports of GI distress. Current Diet Order/ Nutrition Support Clear liquid Patient / S.O Can Pertinent Medications D5-0.45 ns, Dilaudid, Piperacillin, Januvia Pertinent Labs (12/10) Na 133L, Glucose 185H, LDL Cholesterol 30L. (12/12) Na 131L, K 5.5H, BUN 59H, Creatinine 8.4H, Total Bilirubin 3.8H, AST 330H, ALT 340H, Alkaline Phosphatase 522H, Amylase 127H Nutritional Hx/Data Height 1.57 m Height (Calculated Centimeters) 157.5 Current Weight (lbs) 47.174 kg Weight (Calculated Kilograms) 47.2 Weight (Calculated Grams) 98210.6 Usual body Weight (lbs) 104 % Usual Body Weight 100 [place] Body Weight 106 % [place] Body Weight 98 Recent Weight Change No Weight Status Approriate GI Symptoms GI Symptoms Vomitting Diarrhea Food Allergies No Skin Integrity/Comment: Rohit Burnham. Skin intact. Estimated Nutritional Goals BEE in Kcals: Using Current wt Calories/Kcals/Kg Based on current wt 47.2 kg with consideration of dialysis Kcals Calculated 9000-9782 kcals/day (30-35 kcals/kg) Protein: Using Current wt Protein g/kg: Based on current wt 47.2 kg with consideration of dialysis Protein Calculated 57-71 gm/day (1.2-1.5 gm/kg) Fluid: ml Per MD/DO Nutritional Problem 1. Problem Problem Inadequate energy/protein intake related to Etiology altered GI function with vomiting and diarrhea as evidenced by Signs/Symptoms: need for clear liquid diet. Malnutrition Alert Protein-Calorie Malnutrition N/A Malnutrition Related to Morbid Obesity Malnutrition related to morbid obesity No Intervention/Recommendation Recommendations by RD Increase Calorie Intake Protein supplementation Comments 1. Recommend Boost Breeze TID with clear liquid diet to promote nutritional intake. Encourage oral intake. 2. Advance as tolerated to renal diet with Novosource Renal BID. Expected Outcomes/Goals Expected Outcomes/Goals Have pt meet at least 75% of estimated nutritional needs with acceptable tolerance. Physician Parameters for PEM Normal Weight % 90% - 110% (Normal) Body Mass Index (BMI) 18 - 24 (Mild) Serum Albumin (g/dl) 3.5 - 5.0 (Normal)
--- NOTE | 2016-12-15 20:56 | Operative Report ---
DATE OF SURGERY: 12/15/2016 PROCEDURE: Esophagogastroduodenoscopy with epinephrine injection followed by bipolar electrocautery; also removal of foreign body PREPROCEDURE DIAGNOSIS: Massive upper gastrointestinal bleed. POSTPROCEDURE DIAGNOSES: 1. Active oozing from sphincterotomy site at major ampulla. 2. Common bile duct stent removed and retrieved. 3. Status post epinephrine injection followed by bipolar electrocautery. 4. Diffuse mucosal oozing from treatment site secondary to platelet dysfunction, end-stage renal disease and possible cirrhosis with coagulopathy. INDICATION: A 31-year-old male with history of failed renal transplantation, now back on dialysis. He had a cholecystectomy a month ago. Since then, he has had abdominal pain. He had abnormal liver enzymes. Imaging suggested a possible bile leak. There was a gallbladder fossa fluid collection. An ERCP was performed two days ago; a sphincterotomy was performed. There was some mild oozing from the sphincterotomy site that was controlled at the time of ERCP. The patient also had some sludge and stones removed from the bile duct and a biliary stent was placed. He had no bleeding yesterday. Today, he started having active GI bleeding. He had hypertension. He was transferred to the ICU. An urgent upper endoscopy is planned today. CONSENT: Informed consent was obtained from the patient and his parents prior to procedure, after detailed explanation of risks, benefits, and alternatives included but not limited to infection, bleeding, perforation, and . SEDATION: Monitored anesthesia care per Dr. Roman. DESCRIPTION OF PROCEDURE AND FINDINGS: The procedure took place as an emergency in the Intensive Care Unit of [facility]. The patient was kept in a left lateral decubitus position. Adequate sedation was achieved by Dr. Roman. An Olympus therapeutic side-viewing duodenoscope was advanced via the patient's mouth and into the esophagus. It was advanced via the stomach and into the duodenum upto second portion. There was a large blood clot identified at the major ampulla site. This was lavage to clear. With further manipulation, the clot was irrigated off, but at the same time, the stent was also dislodged and came out of the bile duct and into the duodenal lumen. At this point, a snare device was used to retrieve the stent back into the stomach and eventually out the patient. Attention was then paid to the bleeding site at this post-sphincterotomy site at the major ampulla. There was diffuse oozing here. It was pulsatile. First, epinephrine was injected with 1:10,000 mix. A total of 10 mL was injected. There was still oozing identified here at the sphincterotomy site. Bipolar electrocautery was then utilized and a long amount of time was spent in cauterizing the area at the sphincterotomy site and around it. Every time there was electrocautery applied, this new site kept oozing. There was diffuse mucosal oozing from everywhere. This is likely from platelet dysfunction from dialysis and also from possible coagulopathy from cirrhosis. With tamponading with the gold probe, hemostasis was eventually achieved. This area was again examined for a good 2-3 minutes without any bleeding identified. Successful hemostasis was finally achieved. The scope was then withdrawn. The patient tolerated the procedure well, with no complications anticipated. RECOMMENDATIONS: 1. ICU monitoring. 2. We will transfuse 1 unit of platelets, 2 units of fresh frozen plasma and 2 units of packed RBCs. 3. Close monitoring of hemoglobin will be performed. 4. Protonix drip. 5. Consider hemodialysis tonight given platelet dysfunction. Thank you, Dr. Feliciano Davis for involving us in the care of your patient. If you have any further questions, please call us. JOB# [id number] ALVIN
[2016-12-15] MEDS: Morphine Sulfate 2 mg/mL 1mL Syr IVP PRN (21:58)
[2016-12-16] MEDS: Morphine Sulfate 2 mg/mL 1mL Syr IVP PRN (03:02)
[2016-12-16] MEDS: Piperacillin/Tazobact 2.25 gm in 0.9% NS 50 ML IV SCH ×2 (05:58→16:47)
[2016-12-16] MEDS: INSULIN ASPART SLIDING SCALE 100 UNITS/ML UNIT SUBQ SCH ×4 (07:01→22:56)
--- NOTE | 2016-12-16 09:05 | General Progress Note ---
Subjective - Review of Systems Subjective: Patient was seen and examined. No active GI bleeding. Hemodynemically stable. Objective - Results Result Diagrams: 12/15/16 17:09 12/15/16 17:23 Recent Labs: Laboratory Last Values WBC 3.1 Th/cmm (4.8-10.8) L 12/15/16 05:49 RBC 3.03 Mil/cmm (4.30-5.70) L 12/15/16 05:49 Hgb 7.5 gm/dL (13.2-17.3) L* D 12/15/16 17:09 Hct 21.8 % (39.0-49.0) L* D 12/15/16 17:09 MCV 87.7 fl (80-99) 12/15/16 05:49 MCH 30.3 pg (26.0-30.0) H 12/15/16 05:49 MCHC Differential 34.5 pg (28.0-36.0) 12/15/16 05:49 RDW 16.2 % (11.5-20.0) 12/15/16 05:49 Plt Count 104 Th/cmm (150-400) L 12/15/16 05:49 MPV 8.3 fl 12/15/16 05:49 Neutrophils % 56.3 % (40.0-80.0) 12/13/16 05:35 Band Neutrophils % 0 % (0-10) 12/14/16 06:36 Lymphocytes % 25.8 % (20.0-50.0) 12/13/16 05:35 Monocytes % 9.4 % (2.0-10.0) 12/13/16 05:35 Eosinophils % 8.4 % (0.0-5.0) H 12/13/16 05:35 Basophils % 0.1 % (0.0-2.0) 12/13/16 05:35 Neutrophils (Manual) 41 % (40-80) 12/15/16 05:49 Lymphocytes 42 % (20-50) 12/15/16 05:49 Monocytes 9 % (2-10) 12/15/16 05:49 Eosinophils 7 % (0-5) H 12/15/16 05:49 Basophils 1 % (0-3) 12/15/16 05:49 Platelet Estimate DECREASED PLATELETS (NORMAL) 12/15/16 05:49 Platelet Morphology NORMAL (NORMAL) 12/15/16 05:49 Anisocytosis 1+ 12/15/16 05:49 RBC Morph Micro Appear ABNORMAL (NORMAL) 12/15/16 05:49 PT 11.6 SECONDS (9.5-11.5) H 12/13/16 05:35 INR 1.11 (0.5-1.4) 12/13/16 05:35 PTT (Actin FS) 25.4 SECONDS (26.0-38.0) L 12/10/16 21:19 Sodium 135 mEq/L (136-145) L 12/15/16 05:49 Potassium 3.4 mEq/L (3.5-5.1) L 12/15/16 17:23 Chloride 98 mEq/L (98-107) 12/15/16 05:49 Carbon Dioxide 25.6 mEq/L (21.0-31.0) 12/15/16 05:49 Anion Gap 14.7 (7.0-16.0) 12/15/16 05:49 BUN 35 mg/dL (7-25) H 12/15/16 05:49 Creatinine 6.5 mg/dL (0.7-1.3) H* 12/15/16 05:49 Est GFR ( Amer) 12.8 ml/min (>90) 12/15/16 05:49 Est GFR (Non-Af Amer) 10.6 ml/min 12/15/16 05:49 BUN/Creatinine Ratio 5.4 12/15/16 05:49 Glucose 112 mg/dL (70-105) H 12/15/16 05:49 POC Glucose 92 MG/DL (70 - 105) 12/16/16 06:30 Hemoglobin A1c % 5.0 % (4.0-6.0) 12/10/16 21:19 Calcium 9.1 mg/dL (8.6-10.3) 12/15/16 05:49 Total Bilirubin 8.6 mg/dL (0.3-1.0) H 12/15/16 05:49 Direct Bilirubin 5.13 mg/dL (0.0-0.2) H 12/12/16 06:30 AST 107 U/L (13-39) H 12/15/16 05:49 ALT 152 U/L (7-52) H 12/15/16 05:49 Alkaline Phosphatase 475 U/L (34-104) H 12/15/16 05:49 Troponin I < 0.01 ng/mL (0.01-0.05) L 12/10/16 21:19 Total Protein 5.6 gm/dL (6.0-8.3) L 12/15/16 05:49 Albumin 3.2 gm/dL (4.2-5.5) L 12/15/16 05:49 Globulin 2.4 gm/dL 12/15/16 05:49 Albumin/Globulin Ratio 1.3 (1.0-1.8) 12/15/16 05:49 Triglycerides 46 mg/dL (<150) 12/10/16 21:19 Cholesterol 122 mg/dL (<200) 12/10/16 21:19 LDL Cholesterol Direct 30 mg/dL (75-193) L 12/10/16 21:19 HDL Cholesterol 71 mg/dL (23-92) 12/10/16 21:19 Amylase 107 U/L (29-103) H 12/15/16 05:49 Lipase 48 U/L (11-82) 12/15/16 05:49 TSH 6.49 uIU/ml (0.34-5.60) H 12/10/16 21:19 Urine Source CLEAN C 12/11/16 07:40 Urine Color YELLOW 12/11/16 07:40 Urine Clarity H (CLEAR) 12/11/16 07:40 Urine pH 7.0 (4.6 - 8.0) 12/11/16 07:40 Ur Specific [place] 1.010 (1.005-1.030) 12/11/16 07:40 Urine Protein 100 mg/dL (NEGATIVE) H 12/11/16 07:40 Urine Glucose (UA) 250 mg/dL (NEGATIVE) H 12/11/16 07:40 Urine Ketones NEGATIVE mg/dL (NEGATIVE) 12/11/16 07:40 Urine Blood SMALL (NEGATIVE) H 12/11/16 07:40 Urine Nitrate NEGATIVE (NEGATIVE) 12/11/16 07:40 Urine Bilirubin NEGATIVE (NEGATIVE) 12/11/16 07:40 Urine Urobilinogen 0.2 E.U./dL (0.2 - 1.0) 12/11/16 07:40 Ur Leukocyte Esterase NEGATIVE (NEGATIVE) 12/11/16 07:40 Urine RBC 0-2 /hpf (0-5) H 12/11/16 07:40 Urine WBC 0-2 /hpf (0-5) 12/11/16 07:40 Ur Epithelial Cells OCCASIONAL /lpf (FEW) 12/11/16 07:40 Urine Bacteria NONE SEEN /hpf (NONE SEEN) 12/11/16 07:40 Levetiracetam 42.0 ug/mL (10.0-40.0) H 12/10/16 21:19 Hepatitis A IgM Ab Negative (Negative) 12/12/16 06:30 Hep Bs Antigen Negative (Negative) 12/12/16 06:30 Hep B Core IgM Ab Negative (Negative) 12/12/16 06:30 Hepatitis C Antibody 0.1 s/co ratio (0.0-0.9) 12/12/16 06:30 Blood Type AB POSITIVE 12/15/16 17:09 Antibody Screen NEGATIVE 12/15/16 17:09 - Physical Exam Vitals and I&O: Vital Signs Temp 98.2 F 12/16/16 04:00 Pulse 82 12/16/16 07:00 Resp 20 12/16/16 07:00 BP 116/72 12/16/16 07:00 Pulse Ox 96 12/16/16 07:00 Intake & Output 12/15/16 12/16/16 12/16/16 18:59 06:59 18:59 Intake Total 50 1173 Output Total 500 Balance 50 673 Weight (lbs) 44.452 kg Intake: Intake, IV Amount 50 100 Piperacillin Sodium/ 50 100 Tazobact 2.25 gm In Sodium Chloride 0.9% 50 ml @ 100 mls/hr IV Q8HR RADHA Rx#:[id number] Oral 0 Blood Product 1073 Output: Urine 500 Other: # Voids 1 # Bowel Movements 3 Stool Characteristics Bloody Liquid Black Active Medications: Current Medications Piperacillin Sod/Tazobactam (Sod 2.25 gm/ Sodium Chloride) 50 mls @ 100 mls/hr IV Q8HR RADHA Stop: 02/09/17 01:44 Last Infusion: 12/16/16 06:30 Dose: Infused Dextrose/Sodium Chloride (D5-0.45ns) 1,000 mls @ 40 mls/hr IV .Q24H RADHA Stop: 02/10/17 06:50 Last Infusion: 12/15/16 06:00 Dose: 40 mls/hr Sodium Chloride (Nacl 0.9%) 1,000 mls @ 50 mls/hr IV .Q20H [facility] Stop: 02/13/17 16:17 Ibuprofen (Advil) 600 mg PO Q6HR PRN PRN Reason: Severe Pain Stop: 02/12/17 21:54 Last Admin: 12/15/16 11:29 Dose: 600 mg Insulin Aspart (Novolog Insulin Sliding Scale) 0 units SUBQ ACHS RADHA PRN Reason: Protocol Stop: 02/09/17 07:29 Last Admin: 12/16/16 07:01 Dose: Not Given Levetiracetam (Keppra) 500 mg PO BID [facility] Stop: 02/09/17 08:59 Last Admin: 12/15/16 18:50 Dose: Not Given Miscellaneous (Zosyn Iv Per Pharmacy) 1 ea MC PRN PRN PRN Reason: PROTOCOL Stop: 02/09/17 04:59 Morphine Sulfate (Morphine) 1 mg IVP Q4HR PRN PRN Reason: Abdominal Pain Stop: 02/13/17 21:42 Last Admin: 12/16/16 03:02 Dose: 1 mg Ondansetron HCl (Zofran) 4 mg IV Q6HR PRN PRN Reason: Nausea / Vomiting Stop: 02/09/17 01:22 Pantoprazole Sodium (Protonix) 40 mg PO BID [facility] Stop: 02/13/17 16:59 Last Admin: 12/15/16 18:50 Dose: Not Given Sitagliptin Phosphate (Januvia) 25 mg PO DAILY [facility] Stop: 02/10/17 08:59 Last Admin: 12/15/16 09:25 Dose: 25 mg General: Alert, Oriented x3, Mild distress HEENT: Atraumatic, Other (hard of hearing) Neck: Supple Cardiovascular: Regular rate, Normal S1, Normal S2 Lungs: Clear to auscultation Abdomen: Soft, Tender, Distended Extremities: Other (AV graft with BRUIT+) - Procedures Procedures: Procedures Procedure Code Date ABDOMEN SURGERY PROCEDURE 63448 10/21/16 DESTRUCTION OF STOMACH, PYLORUS, ENDO [id number] 12/11/16 DILATION OF COMMON BILE DUCT, ENDO [id number] 12/11/16 EGD BIOPSY SINGLE/MULTIPLE 01300 02/20/16 ENDO CHOLANGIOPANCREATOGRAPH 61084 12/11/16 EXCISION OF DUODENUM, ENDO, DIAGN [id number] 02/20/16 EXCISION OF STOMACH, PYLORUS, ENDO, DIAGN [id number] 02/20/16 INTRODUCTION OF OTHER THERAPEUTIC SUBSTANCE INTO UP GI, ENDO [id number] 12/11/16 INTRODUCTION OF SERUM/TOX/VACCINE INTO MUSCLE, PERC APPROACH [id number] 11/05/16 PERFORMANCE OF URINARY FILTRATION, MULTIPLE [id number] 10/21/16 PERFORMANCE OF URINARY FILTRATION, SINGLE [id number] 11/05/16 RELEASE GREATER OMENTUM, OPEN APPROACH [id number] 10/21/16 RELEASE LIVER, OPEN APPROACH [id number] 10/21/16 REMOVAL OF GALLBLADDER 25860 10/21/16 RESECTION OF GALLBLADDER, OPEN APPROACH [id number] 10/21/16 TRANSFUSE NONAUT RED BLOOD CELLS IN PERIPH VEIN, PERC 91651A9 11/05/16 UPPR GI SCOPE W/SUBMUC INJ 65814 12/11/16 Assessment/Plan - Problem List Patient Problems: All Active Problems NOT FEELING GOOD WITH NAUSEA (Acute) The administrative codes within the [employer] content you are accessing may have as of 02/06/2016. Please contact your IT Dept/Help Desk and request the latest Regulatory release be installed. IT Dept/Help Desk- Please refer to our FAQ page ([email or web address]) or contact [employer] Customer Support at [email or web address] (Acute ~02/20/16) WEAKNESS WITH RIGHT LOWER QUAD PAIN (Acute) WEAKNESS WITH RIGHT LOWER QUAD PAIN (Acute) - Assessment Assessment: Obstructive jaundice S/p ERCP. end-stage renal disease on hemodialysis. Diabetes mellitus Seizure disorder Acute upper GI bleed after ERCP suspected bleeding from ERCP site. Acute hemorrhagic anemia status post blood transfusion Hypotension resolved. Questionable chronic liver disease Diffuse abdominal pain Status post exploratory laparotomy for cholelithiasis with cholecystectomy a few weeks ago Bilateral hearing loss. - Plan Plan: Pain control. Transfer to med surg floor. Blood transfusion PRN. Hemodialysis as planned by order selector.. Monitor blood sugar blood pressure. General nursing care. Workup for chronic liver disease. Follow-up lab. Seizure precautions. Seizure medications. Chronic management of his medical illnesses. Follow-up consultants recommendation. Care plan reviewed and discussed with staff. Nutritional Asmnt/Malnutr-PDOC - Dietary Evaluation Malnutrition Findings (Please click <Entered> for more info): Nutritional Asmnt/Malnutrition Start: 12/12/16 14: 00 Text: Status: Complete Freq: Document 12/12/16 14:00 [facility] (Rec: 12/12/16 14:10 [facility] [id number]) Nutritional Asmnt/Malnutrition Patient General Information Nutritional Screening High Risk Screening Diagnosis Common bile duct dilation Pertinent Medical Hx/Surgical Hx HTN, DM, ESRD on dialysis, seizures, cholecystectomy Subjective Information Pt is a 31-year-old male admitted with chief complaint of right sided abdominal pain. RD attempted visit twice but pt was sound asleep on both occasions. Pt appears to have a small body frame but no signs of muscle or fat depletion. IBW calculated with consideration of small body frame. Per ER report, pt has had vomiting and diarrhea for several days; no current reports of GI distress. Current Diet Order/ Nutrition Support Clear liquid Patient / S.O Can Pertinent Medications D5-0.45 ns, Dilaudid, Piperacillin, Januvia Pertinent Labs (12/10) Na 133L, Glucose 185H, LDL Cholesterol 30L. (12/12) Na 131L, K 5.5H, BUN 59H, Creatinine 8.4H, Total Bilirubin 3.8H, AST 330H, ALT 340H, Alkaline Phosphatase 522H, Amylase 127H Nutritional Hx/Data Height 1.57 m Height (Calculated Centimeters) 157.5 Current Weight (lbs) 47.174 kg Weight (Calculated Kilograms) 47.2 Weight (Calculated Grams) 15224.6 Usual body Weight (lbs) 104 % Usual Body Weight 100 [place] Body Weight 106 % [place] Body Weight 98 Recent Weight Change No Weight Status Approriate GI Symptoms GI Symptoms Vomitting Diarrhea Food Allergies No Skin Integrity/Comment: Rohit Burnham. Skin intact. Estimated Nutritional Goals BEE in Kcals: Using Current wt Calories/Kcals/Kg Based on current wt 47.2 kg with consideration of dialysis Kcals Calculated 4979-8455 kcals/day (30-35 kcals/kg) Protein: Using Current wt Protein g/kg: Based on current wt 47.2 kg with consideration of dialysis Protein Calculated 57-71 gm/day (1.2-1.5 gm/kg) Fluid: ml Per MD/DO Nutritional Problem 1. Problem Problem Inadequate energy/protein intake related to Etiology altered GI function with vomiting and diarrhea as evidenced by Signs/Symptoms: need for clear liquid diet. Malnutrition Alert Protein-Calorie Malnutrition N/A Malnutrition Related to Morbid Obesity Malnutrition related to morbid obesity No Intervention/Recommendation Recommendations by RD Increase Calorie Intake Protein supplementation Comments 1. Recommend Boost Breeze TID with clear liquid diet to promote nutritional intake. Encourage oral intake. 2. Advance as tolerated to renal diet with Novosource Renal BID. Expected Outcomes/Goals Expected Outcomes/Goals Have pt meet at least 75% of estimated nutritional needs with acceptable tolerance. Physician Parameters for PEM Normal Weight % 90% - 110% (Normal) Body Mass Index (BMI) 18 - 24 (Mild) Serum Albumin (g/dl) 3.5 - 5.0 (Normal)
[2016-12-16 09:40] LABS: % BASOPHILS 1.1 % (0.0-2.0); % EOSINOPHILS 5.3 % (0.0-5.0); % LYMPHOCYTES 16.9 % (20.0-50.0); % MONOCYTES 6.7 % (2.0-10.0); MEAN CELL VOLUME 88.4 fl (80-99); MEAN CORPUSCULAR HEMOGLOBIN 30.5 pg (26.0-30.0); MEAN CORPUSCULAR HGB CONC 34.5 pg (28.0-36.0); MEAN PLATELET VOLUME 8.6 fl; NEUTROPHILE ABSOLUTE 5.7 Th/cmm (1.8-8.0); PLATELET COUNT 121 Th/cmm (150-400); RED BLOOD COUNT 3.38 Mil/cmm (4.30-5.70); RED CELL DISTRIBUTION WIDTH 16.3 % (11.5-20.0)
[2016-12-16 09:41] LABS: HEMATOCRIT 29.9 % (39.0-49.0); HEMOGLOBIN 10.3 gm/dL (13.2-17.3); WHITE BLOOD COUNT 8.1 Th/cmm (4.8-10.8)
[2016-12-16 09:58] LABS: ANION GAP 18.7 (7.0-16.0); BUN/CREATININE RATIO 6.1; CALCIUM SERUM 9.8 mg/dL (8.6-10.3); CARBON DIOXIDE 20.4 mEq/L (21.0-31.0); POTASSIUM SERUM 3.1 mEq/L (3.5-5.1)
[2016-12-16 10:00] LABS: INR 1.03 (0.5-1.4); PROTHROMBIN TIME (TEST) 10.7 SECONDS (9.5-11.5)
[2016-12-16 10:04] LABS: CREATININE - SERUM 7.5 mg/dL (0.7-1.3)
--- NOTE | 2016-12-16 10:22 | General Progress Note ---
Subjective - Review of Systems Service Date: 12/16/16 Events since last encounter: pt was moved to icu due to gi bleed Subjective: Procedures ABDOMEN SURGERY PROCEDURE (10/21/16) DESTRUCTION OF STOMACH, PYLORUS, ENDO (12/11/16) DILATION OF COMMON BILE DUCT, ENDO (12/11/16) EGD BIOPSY SINGLE/MULTIPLE (02/20/16) ENDO CHOLANGIOPANCREATOGRAPH (12/11/16) EXCISION OF DUODENUM, ENDO, DIAGN (02/20/16) EXCISION OF STOMACH, PYLORUS, ENDO, DIAGN (02/20/16) INTRODUCTION OF OTHER THERAPEUTIC SUBSTANCE INTO UP GI, ENDO (12/11/16) INTRODUCTION OF SERUM/TOX/VACCINE INTO MUSCLE, PERC APPROACH (11/05/16) PERFORMANCE OF URINARY FILTRATION, MULTIPLE (10/21/16) PERFORMANCE OF URINARY FILTRATION, SINGLE (11/05/16) RELEASE GREATER OMENTUM, OPEN APPROACH (10/21/16) RELEASE LIVER, OPEN APPROACH (10/21/16) REMOVAL OF GALLBLADDER (10/21/16) RESECTION OF GALLBLADDER, OPEN APPROACH (10/21/16) TRANSFUSE NONAUT RED BLOOD CELLS IN PERIPH VEIN, PERC (11/05/16) UPPR GI SCOPE W/SUBMUC INJ (12/11/16) Intake & Output 12/14/16 12/15/16 12/16/16 12/17/16 06:59 06:59 06:59 06:59 Intake Total 0988.113 8629.667 1223 Output Total 500 Balance 1470.782 8825.667 723 Weight (lbs) 48.648 kg 46.266 kg 44.452 kg Laboratory Results - last 24 hr 12/15/16 12/15/16 12/15/16 11:31 17:09 17:09 WBC RBC Hgb 7.5 L* D Hct 21.8 L* D MCV MCH MCHC Differential RDW Plt Count MPV Neutrophils % Lymphocytes % Monocytes % Eosinophils % Basophils % PT INR PTT (Actin FS) Sodium Potassium Chloride Carbon Dioxide Anion Gap BUN Creatinine Est GFR ( Amer) Est GFR (Non-Af Amer) BUN/Creatinine Ratio Glucose POC Glucose 132 H Calcium Blood Type AB POSITIVE Antibody Screen NEGATIVE 12/15/16 12/15/16 12/15/16 17:23 18:01 20:49 WBC RBC Hgb Hct MCV MCH MCHC Differential RDW Plt Count MPV Neutrophils % Lymphocytes % Monocytes % Eosinophils % Basophils % PT INR PTT (Actin FS) Sodium Potassium 3.4 L Chloride Carbon Dioxide Anion Gap BUN Creatinine Est GFR ( Amer) Est GFR (Non-Af Amer) BUN/Creatinine Ratio Glucose POC Glucose 139 H 152 H Calcium Blood Type Antibody Screen 12/16/16 12/16/16 12/16/16 06:30 09:05 09:05 WBC 8.1 D RBC 3.38 L Hgb 10.3 L D Hct 29.9 L D MCV 88.4 MCH 30.5 H MCHC Differential 34.5 RDW 16.3 Plt Count 121 L MPV 8.6 Neutrophils % 70.0 Lymphocytes % 16.9 L Monocytes % 6.7 Eosinophils % 5.3 H Basophils % 1.1 PT 10.7 INR 1.03 PTT (Actin FS) 27.1 Sodium Potassium Chloride Carbon Dioxide Anion Gap BUN Creatinine Est GFR ( Amer) Est GFR (Non-Af Amer) BUN/Creatinine Ratio Glucose POC Glucose 92 Calcium Blood Type Antibody Screen 12/16/16 09:05 WBC RBC Hgb Hct MCV MCH MCHC Differential RDW Plt Count MPV Neutrophils % Lymphocytes % Monocytes % Eosinophils % Basophils % PT INR PTT (Actin FS) Sodium 137 Potassium 3.1 L Chloride 101 Carbon Dioxide 20.4 L Anion Gap 18.7 H BUN 46 H Creatinine 7.5 H* Est GFR ( Amer) 10.9 Est GFR (Non-Af Amer) 9.0 BUN/Creatinine Ratio 6.1 Glucose 89 POC Glucose Calcium 9.8 Blood Type Antibody Screen Vital Signs - 24 hr 12/15/16 12/15/16 12/15/16 12:00 17:45 18:00 Temp 99.4 F 97.6 F HR 95 98 102 RR 16 20 18 BP 112/77 98/61 83/56 O2 Sat % 98 100 12/15/16 12/15/16 12/15/16 20:00 21:00 22:00 Temp 98.8 F HR 104 86 82 RR 19 14 16 BP 96/49 118/64 100/59 O2 Sat % 99 99 100 12/15/16 12/16/16 12/16/16 23:00 00:00 01:00 Temp 98.6 F HR 84 75 78 RR 16 16 15 BP 113/71 110/50 115/65 O2 Sat % 99 99 99 12/16/16 12/16/16 12/16/16 02:00 03:00 04:00 Temp 98.2 F HR 78 86 80 RR 16 16 18 BP 130/80 138/84 108/69 O2 Sat % 98 99 97 12/16/16 12/16/16 12/16/16 05:00 06:00 07:00 Temp HR 82 94 82 RR 16 18 20 BP 108/70 118/75 116/72 O2 Sat % 98 98 96 LUNGS CTA B/L CARDIAC S1 S2 RRR ABDOMEN SOFT, POSITIVE BOWEL SOUNDS EXTREMITY NO EDEMA NEURO ALERT AND ORIENTED Current Medications Piperacillin Sod/Tazobactam (Sod 2.25 gm/ Sodium Chloride) 50 mls @ 100 mls/hr IV Q8HR [facility] Stop: 02/09/17 01:44 Last Admin: 12/15/16 12:12 Dose: 100 mls/hr Dextrose/Sodium Chloride (D5-0.45ns) 1,000 mls @ 40 mls/hr IV .Q24H RADHA Stop: 02/10/17 06:50 Last Infusion: 12/15/16 06:00 Dose: 40 mls/hr Ibuprofen (Advil) 600 mg PO Q6HR PRN PRN Reason: Severe Pain Stop: 02/12/17 21:54 Last Admin: 12/15/16 11:29 Dose: 600 mg Insulin Aspart (Novolog Insulin Sliding Scale) 0 units SUBQ ACHS RADHA PRN Reason: Protocol Stop: 02/09/17 07:29 Last Admin: 12/15/16 11:36 Dose: Not Given Levetiracetam (Keppra) 500 mg PO BID [facility] Stop: 02/09/17 08:59 Last Admin: 12/15/16 09:25 Dose: 500 mg Miscellaneous (Zosyn Iv Per Pharmacy) 1 ea MC PRN PRN PRN Reason: PROTOCOL Stop: 02/09/17 04:59 Ondansetron HCl (Zofran) 4 mg IV Q6HR PRN PRN Reason: Nausea / Vomiting Stop: 02/09/17 01:22 Pantoprazole Sodium (Protonix) 40 mg PO BID [facility] Stop: 02/13/17 16:59 Sitagliptin Phosphate (Januvia) 25 mg PO DAILY [facility] Stop: 02/10/17 08:59 Last Admin: 12/15/16 09:25 Dose: 25 mg Diagnoses ANEMIA IN CHRONIC KIDNEY DISEASE 12/11/16 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 KIDNEY DISEASE 12/11/16 HYPO-OSMOLALITY AND HYPONATREMIA 12/11/16 EPILEPSY, UNSP, NOT INTRACTABLE, WITHOUT STATUS EPILEPTICUS 12/11/16 UNSPECIFIED HEARING LOSS, BILATERAL 12/11/16 HYP CHR KIDNEY DISEASE W STAGE 5 CHR KIDNEY DISEASE OR ESRD 12/11/16 CALCULUS OF BILE DUCT W/O CHOLANGITIS OR CHOLECYST W OBST 12/11/16 END STAGE RENAL DISEASE 12/11/16 UNSPECIFIED ABDOMINAL PAIN 12/11/16 ACQUIRED ABSENCE OF OTHER SPECIFIED PARTS OF DIGESTIVE TRACT 12/11/16 DEPENDENCE ON RENAL DIALYSIS 12/11/16 PLAN * CONTINUE HD SUPPORT * GI CONSULT TO FOLLOW UP GI BLEED * HD IN AM Objective - Results Result Diagrams: 12/16/16 09:05 12/16/16 09:05 Recent Labs: Laboratory Last Values WBC 8.1 Th/cmm (4.8-10.8) D 12/16/16 09:05 RBC 3.38 Mil/cmm (4.30-5.70) L 12/16/16 09:05 Hgb 10.3 gm/dL (13.2-17.3) L D 12/16/16 09:05 Hct 29.9 % (39.0-49.0) L D 12/16/16 09:05 MCV 88.4 fl (80-99) 12/16/16 09:05 MCH 30.5 pg (26.0-30.0) H 12/16/16 09:05 MCHC Differential 34.5 pg (28.0-36.0) 12/16/16 09:05 RDW 16.3 % (11.5-20.0) 12/16/16 09:05 Plt Count 121 Th/cmm (150-400) L 12/16/16 09:05 MPV 8.6 fl 12/16/16 09:05 Neutrophils % 70.0 % (40.0-80.0) 12/16/16 09:05 Band Neutrophils % 0 % (0-10) 12/14/16 06:36 Lymphocytes % 16.9 % (20.0-50.0) L 12/16/16 09:05 Monocytes % 6.7 % (2.0-10.0) 12/16/16 09:05 Eosinophils % 5.3 % (0.0-5.0) H 12/16/16 09:05 Basophils % 1.1 % (0.0-2.0) 12/16/16 09:05 Neutrophils (Manual) 41 % (40-80) 12/15/16 05:49 Lymphocytes 42 % (20-50) 12/15/16 05:49 Monocytes 9 % (2-10) 12/15/16 05:49 Eosinophils 7 % (0-5) H 12/15/16 05:49 Basophils 1 % (0-3) 12/15/16 05:49 Platelet Estimate DECREASED PLATELETS (NORMAL) 12/15/16 05:49 Platelet Morphology NORMAL (NORMAL) 12/15/16 05:49 Anisocytosis 1+ 12/15/16 05:49 RBC Morph Micro Appear ABNORMAL (NORMAL) 12/15/16 05:49 PT 10.7 SECONDS (9.5-11.5) 12/16/16 09:05 INR 1.03 (0.5-1.4) 12/16/16 09:05 PTT (Actin FS) 27.1 SECONDS (26.0-38.0) 12/16/16 09:05 Sodium 137 mEq/L (136-145) 12/16/16 09:05 Potassium 3.1 mEq/L (3.5-5.1) L 12/16/16 09:05 Chloride 101 mEq/L (98-107) 12/16/16 09:05 Carbon Dioxide 20.4 mEq/L (21.0-31.0) L 12/16/16 09:05 Anion Gap 18.7 (7.0-16.0) H 12/16/16 09:05 BUN 46 mg/dL (7-25) H 12/16/16 09:05 Creatinine 7.5 mg/dL (0.7-1.3) H* 12/16/16 09:05 Est GFR ( Amer) 10.9 ml/min (>90) 12/16/16 09:05 Est GFR (Non-Af Amer) 9.0 ml/min 12/16/16 09:05 BUN/Creatinine Ratio 6.1 12/16/16 09:05 Glucose 89 mg/dL (70-105) 12/16/16 09:05 POC Glucose 92 MG/DL (70 - 105) 12/16/16 06:30 Hemoglobin A1c % 5.0 % (4.0-6.0) 12/10/16 21:19 Calcium 9.8 mg/dL (8.6-10.3) 12/16/16 09:05 Total Bilirubin 8.6 mg/dL (0.3-1.0) H 12/15/16 05:49 Direct Bilirubin 5.13 mg/dL (0.0-0.2) H 12/12/16 06:30 AST 107 U/L (13-39) H 12/15/16 05:49 ALT 152 U/L (7-52) H 12/15/16 05:49 Alkaline Phosphatase 475 U/L (34-104) H 12/15/16 05:49 Troponin I < 0.01 ng/mL (0.01-0.05) L 12/10/16 21:19 Total Protein 5.6 gm/dL (6.0-8.3) L 12/15/16 05:49 Albumin 3.2 gm/dL (4.2-5.5) L 12/15/16 05:49 Globulin 2.4 gm/dL 12/15/16 05:49 Albumin/Globulin Ratio 1.3 (1.0-1.8) 12/15/16 05:49 Triglycerides 46 mg/dL (<150) 12/10/16 21:19 Cholesterol 122 mg/dL (<200) 12/10/16 21:19 LDL Cholesterol Direct 30 mg/dL (75-193) L 12/10/16 21:19 HDL Cholesterol 71 mg/dL (23-92) 12/10/16 21:19 Amylase 107 U/L (29-103) H 12/15/16 05:49 Lipase 48 U/L (11-82) 12/15/16 05:49 TSH 6.49 uIU/ml (0.34-5.60) H 12/10/16 21:19 Urine Source CLEAN C 12/11/16 07:40 Urine Color YELLOW 12/11/16 07:40 Urine Clarity H (CLEAR) 12/11/16 07:40 Urine pH 7.0 (4.6 - 8.0) 12/11/16 07:40 Ur Specific [place] 1.010 (1.005-1.030) 12/11/16 07:40 Urine Protein 100 mg/dL (NEGATIVE) H 12/11/16 07:40 Urine Glucose (UA) 250 mg/dL (NEGATIVE) H 12/11/16 07:40 Urine Ketones NEGATIVE mg/dL (NEGATIVE) 12/11/16 07:40 Urine Blood SMALL (NEGATIVE) H 12/11/16 07:40 Urine Nitrate NEGATIVE (NEGATIVE) 12/11/16 07:40 Urine Bilirubin NEGATIVE (NEGATIVE) 12/11/16 07:40 Urine Urobilinogen 0.2 E.U./dL (0.2 - 1.0) 12/11/16 07:40 Ur Leukocyte Esterase NEGATIVE (NEGATIVE) 12/11/16 07:40 Urine RBC 0-2 /hpf (0-5) H 12/11/16 07:40 Urine WBC 0-2 /hpf (0-5) 12/11/16 07:40 Ur Epithelial Cells OCCASIONAL /lpf (FEW) 12/11/16 07:40 Urine Bacteria NONE SEEN /hpf (NONE SEEN) 12/11/16 07:40 Levetiracetam 42.0 ug/mL (10.0-40.0) H 12/10/16 21:19 Hepatitis A IgM Ab Negative (Negative) 12/12/16 06:30 Hep Bs Antigen Negative (Negative) 12/12/16 06:30 Hep B Core IgM Ab Negative (Negative) 12/12/16 06:30 Hepatitis C Antibody 0.1 s/co ratio (0.0-0.9) 12/12/16 06:30 Blood Type AB POSITIVE 12/15/16 17:09 Antibody Screen NEGATIVE 12/15/16 17:09 - Physical Exam Vitals and I&O: Vital Signs Temp 98.2 F 12/16/16 04:00 Pulse 82 12/16/16 07:00 Resp 20 12/16/16 07:00 BP 116/72 12/16/16 07:00 Pulse Ox 96 12/16/16 07:00 Intake & Output 12/15/16 12/16/16 12/16/16 18:59 06:59 18:59 Intake Total 50 1173 Output Total 500 Balance 50 673 Weight (lbs) 44.452 kg Intake: Intake, IV Amount 50 100 Piperacillin Sodium/ 50 100 Tazobact 2.25 gm In Sodium Chloride 0.9% 50 ml @ 100 mls/hr IV Q8HR [facility] Rx#:[id number] Oral 0 Blood Product 1073 Output: Urine 500 Other: # Voids 1 # Bowel Movements 3 Stool Characteristics Bloody Liquid Black Active Medications: Current Medications Piperacillin Sod/Tazobactam (Sod 2.25 gm/ Sodium Chloride) 50 mls @ 100 mls/hr IV Q8HR [facility] Stop: 02/09/17 01:44 Last Infusion: 12/16/16 06:30 Dose: Infused Dextrose/Sodium Chloride (D5-0.45ns) 1,000 mls @ 40 mls/hr IV .Q24H [facility] Stop: 02/10/17 06:50 Last Infusion: 12/15/16 06:00 Dose: 40 mls/hr Sodium Chloride (Nacl 0.9%) 1,000 mls @ 50 mls/hr IV .Q20H [facility] Stop: 02/13/17 16:17 Ibuprofen (Advil) 600 mg PO Q6HR PRN PRN Reason: Severe Pain Stop: 02/12/17 21:54 Last Admin: 12/15/16 11:29 Dose: 600 mg Insulin Aspart (Novolog Insulin Sliding Scale) 0 units SUBQ ACHS RADHA PRN Reason: Protocol Stop: 02/09/17 07:29 Last Admin: 12/16/16 07:01 Dose: Not Given Levetiracetam (Keppra) 500 mg PO BID [facility] Stop: 02/09/17 08:59 Last Admin: 12/15/16 18:50 Dose: Not Given Miscellaneous (Zosyn Iv Per Pharmacy) 1 ea MC PRN PRN PRN Reason: PROTOCOL Stop: 02/09/17 04:59 Morphine Sulfate (Morphine) 1 mg IVP Q4HR PRN PRN Reason: Abdominal Pain Stop: 02/13/17 21:42 Last Admin: 12/16/16 03:02 Dose: 1 mg Ondansetron HCl (Zofran) 4 mg IV Q6HR PRN PRN Reason: Nausea / Vomiting Stop: 02/09/17 01:22 Pantoprazole Sodium (Protonix) 40 mg PO BID [facility] Stop: 02/13/17 16:59 Last Admin: 12/15/16 18:50 Dose: Not Given Sitagliptin Phosphate (Januvia) 25 mg PO DAILY RADHA Stop: 02/10/17 08:59 Last Admin: 12/15/16 09:25 Dose: 25 mg General: Alert, Oriented x3, Mild distress HEENT: Atraumatic, Other (hard of hearing) Neck: Supple Cardiovascular: Regular rate, Normal S1, Normal S2 Lungs: Clear to auscultation Abdomen: Soft, Tender, Distended Extremities: Other (AV graft with BRUIT+) - Procedures Procedures: Procedures Procedure Code Date ABDOMEN SURGERY PROCEDURE 70952 10/21/16 DESTRUCTION OF STOMACH, PYLORUS, ENDO [id number] 12/11/16 DILATION OF COMMON BILE DUCT, ENDO [id number] 12/11/16 EGD BIOPSY SINGLE/MULTIPLE 38700 02/20/16 ENDO CHOLANGIOPANCREATOGRAPH 93353 12/11/16 EXCISION OF DUODENUM, ENDO, DIAGN [id number] 02/20/16 EXCISION OF STOMACH, PYLORUS, ENDO, DIAGN [id number] 02/20/16 INTRODUCTION OF OTHER THERAPEUTIC SUBSTANCE INTO UP GI, ENDO [id number] 12/11/16 INTRODUCTION OF SERUM/TOX/VACCINE INTO MUSCLE, PERC APPROACH [id number] 11/05/16 PERFORMANCE OF URINARY FILTRATION, MULTIPLE [id number] 10/21/16 PERFORMANCE OF URINARY FILTRATION, SINGLE [id number] 11/05/16 RELEASE GREATER OMENTUM, OPEN APPROACH [id number] 10/21/16 RELEASE LIVER, OPEN APPROACH [id number] 10/21/16 REMOVAL OF GALLBLADDER 05087 10/21/16 RESECTION OF GALLBLADDER, OPEN APPROACH [id number] 10/21/16 TRANSFUSE NONAUT RED BLOOD CELLS IN PERIPH VEIN, PERC 84857X6 11/05/16 UPPR GI SCOPE W/SUBMUC INJ 59855 12/11/16 Assessment/Plan - Problem List Patient Problems: All Active Problems NOT FEELING GOOD WITH NAUSEA (Acute) The administrative codes within the O content you are accessing may have as of 02/06/2016. Please contact your IT Dept/Help Desk and request the latest Regulatory release be installed. IT Dept/Help Desk- Please refer to our FAQ page ([email or web address]) or contact [employer] Customer Support at [email or web address] (Acute ~02/20/16) WEAKNESS WITH RIGHT LOWER QUAD PAIN (Acute) WEAKNESS WITH RIGHT LOWER QUAD PAIN (Acute) Nutritional Asmnt/Malnutr-PDOC - Dietary Evaluation Malnutrition Findings (Please click <Entered> for more info): Nutritional Asmnt/Malnutrition Start: 12/12/16 14: 00 Text: Status: Complete Freq: Document 12/12/16 14:00 [facility] (Rec: 12/12/16 14:10 [facility] [id number]) Nutritional Asmnt/Malnutrition Patient General Information Nutritional Screening High Risk Screening Diagnosis Common bile duct dilation Pertinent Medical Hx/Surgical Hx HTN, DM, ESRD on dialysis, seizures, cholecystectomy Subjective Information Pt is a 31-year-old male admitted with chief complaint of right sided abdominal pain. RD attempted visit twice but pt was sound asleep on both occasions. Pt appears to have a small body frame but no signs of muscle or fat depletion. IBW calculated with consideration of small body frame. Per ER report, pt has had vomiting and diarrhea for several days; no current reports of GI distress. Current Diet Order/ Nutrition Support Clear liquid Patient / S.O Can Pertinent Medications D5-0.45 ns, Dilaudid, Piperacillin, Januvia Pertinent Labs (12/10) Na 133L, Glucose 185H, LDL Cholesterol 30L. (12/12) Na 131L, K 5.5H, BUN 59H, Creatinine 8.4H, Total Bilirubin 3.8H, AST 330H, ALT 340H, Alkaline Phosphatase 522H, Amylase 127H Nutritional Hx/Data Height 1.57 m Height (Calculated Centimeters) 157.5 Current Weight (lbs) 47.174 kg Weight (Calculated Kilograms) 47.2 Weight (Calculated Grams) 43770.6 Usual body Weight (lbs) 104 % Usual Body Weight 100 Dunning Body Weight 106 % Dunning Body Weight 98 Recent Weight Change No Weight Status Approriate GI Symptoms GI Symptoms Vomitting Diarrhea Food Allergies No Skin Integrity/Comment: Rohit Burnham. Skin intact. Estimated Nutritional Goals BEE in Kcals: Using Current wt Calories/Kcals/Kg Based on current wt 47.2 kg with consideration of dialysis Kcals Calculated 9424-0061 kcals/day (30-35 kcals/kg) Protein: Using Current wt Protein g/kg: Based on current wt 47.2 kg with consideration of dialysis Protein Calculated 57-71 gm/day (1.2-1.5 gm/kg) Fluid: ml Per MD/DO Nutritional Problem 1. Problem Problem Inadequate energy/protein intake related to Etiology altered GI function with vomiting and diarrhea as evidenced by Signs/Symptoms: need for clear liquid diet. Malnutrition Alert Protein-Calorie Malnutrition N/A Malnutrition Related to Morbid Obesity Malnutrition related to morbid obesity No Intervention/Recommendation Recommendations by RD Increase Calorie Intake Protein supplementation Comments 1. Recommend Boost Breeze TID with clear liquid diet to promote nutritional intake. Encourage oral intake. 2. Advance as tolerated to renal diet with Novosource Renal BID. Expected Outcomes/Goals Expected Outcomes/Goals Have pt meet at least 75% of estimated nutritional needs with acceptable tolerance. Physician Parameters for PEM Normal Weight % 90% - 110% (Normal) Body Mass Index (BMI) 18 - 24 (Mild) Serum Albumin (g/dl) 3.5 - 5.0 (Normal)
[2016-12-16] MEDS: Morphine Sulfate 4 mg/mL 1mL Syr IVP PRN ×2 (12:19→16:34)
--- NOTE | 2016-12-16 13:07 | General Progress Note ---
Subjective - Review of Systems Service Date: 12/16/16 Events since last encounter: EGD noted still has melena discussed possible etiology of cirrhosis with mother last night who check into this complication with polypharmacy he has been since kidney transplant 23 years ago. Objective - Results Result Diagrams: 12/16/16 09:05 12/16/16 09:05 Recent Labs: Laboratory Last Values WBC 8.1 Th/cmm (4.8-10.8) D 12/16/16 09:05 RBC 3.38 Mil/cmm (4.30-5.70) L 12/16/16 09:05 Hgb 10.3 gm/dL (13.2-17.3) L D 12/16/16 09:05 Hct 29.9 % (39.0-49.0) L D 12/16/16 09:05 MCV 88.4 fl (80-99) 12/16/16 09:05 MCH 30.5 pg (26.0-30.0) H 12/16/16 09:05 MCHC Differential 34.5 pg (28.0-36.0) 12/16/16 09:05 RDW 16.3 % (11.5-20.0) 12/16/16 09:05 Plt Count 121 Th/cmm (150-400) L 12/16/16 09:05 MPV 8.6 fl 12/16/16 09:05 Neutrophils % 70.0 % (40.0-80.0) 12/16/16 09:05 Band Neutrophils % 0 % (0-10) 12/14/16 06:36 Lymphocytes % 16.9 % (20.0-50.0) L 12/16/16 09:05 Monocytes % 6.7 % (2.0-10.0) 12/16/16 09:05 Eosinophils % 5.3 % (0.0-5.0) H 12/16/16 09:05 Basophils % 1.1 % (0.0-2.0) 12/16/16 09:05 Neutrophils (Manual) 41 % (40-80) 12/15/16 05:49 Lymphocytes 42 % (20-50) 12/15/16 05:49 Monocytes 9 % (2-10) 12/15/16 05:49 Eosinophils 7 % (0-5) H 12/15/16 05:49 Basophils 1 % (0-3) 12/15/16 05:49 Platelet Estimate DECREASED PLATELETS (NORMAL) 12/15/16 05:49 Platelet Morphology NORMAL (NORMAL) 12/15/16 05:49 Anisocytosis 1+ 12/15/16 05:49 RBC Morph Micro Appear ABNORMAL (NORMAL) 12/15/16 05:49 PT 10.7 SECONDS (9.5-11.5) 12/16/16 09:05 INR 1.03 (0.5-1.4) 12/16/16 09:05 PTT (Actin FS) 27.1 SECONDS (26.0-38.0) 12/16/16 09:05 Sodium 137 mEq/L (136-145) 12/16/16 09:05 Potassium 3.1 mEq/L (3.5-5.1) L 12/16/16 09:05 Chloride 101 mEq/L (98-107) 12/16/16 09:05 Carbon Dioxide 20.4 mEq/L (21.0-31.0) L 12/16/16 09:05 Anion Gap 18.7 (7.0-16.0) H 12/16/16 09:05 BUN 46 mg/dL (7-25) H 12/16/16 09:05 Creatinine 7.5 mg/dL (0.7-1.3) H* 12/16/16 09:05 Est GFR ( Amer) 10.9 ml/min (>90) 12/16/16 09:05 Est GFR (Non-Af Amer) 9.0 ml/min 12/16/16 09:05 BUN/Creatinine Ratio 6.1 12/16/16 09:05 Glucose 89 mg/dL (70-105) 12/16/16 09:05 POC Glucose 92 MG/DL (70 - 105) 12/16/16 06:30 Hemoglobin A1c % 5.0 % (4.0-6.0) 12/10/16 21:19 Calcium 9.8 mg/dL (8.6-10.3) 12/16/16 09:05 Total Bilirubin 8.6 mg/dL (0.3-1.0) H 12/15/16 05:49 Direct Bilirubin 5.13 mg/dL (0.0-0.2) H 12/12/16 06:30 AST 107 U/L (13-39) H 12/15/16 05:49 ALT 152 U/L (7-52) H 12/15/16 05:49 Alkaline Phosphatase 475 U/L (34-104) H 12/15/16 05:49 Troponin I < 0.01 ng/mL (0.01-0.05) L 12/10/16 21:19 Total Protein 5.6 gm/dL (6.0-8.3) L 12/15/16 05:49 Albumin 3.2 gm/dL (4.2-5.5) L 12/15/16 05:49 Globulin 2.4 gm/dL 12/15/16 05:49 Albumin/Globulin Ratio 1.3 (1.0-1.8) 12/15/16 05:49 Triglycerides 46 mg/dL (<150) 12/10/16 21:19 Cholesterol 122 mg/dL (<200) 12/10/16 21:19 LDL Cholesterol Direct 30 mg/dL (75-193) L 12/10/16 21:19 HDL Cholesterol 71 mg/dL (23-92) 12/10/16 21:19 Amylase 107 U/L (29-103) H 12/15/16 05:49 Lipase 48 U/L (11-82) 12/15/16 05:49 TSH 6.49 uIU/ml (0.34-5.60) H 12/10/16 21:19 Urine Source CLEAN C 12/11/16 07:40 Urine Color YELLOW 12/11/16 07:40 Urine Clarity H (CLEAR) 12/11/16 07:40 Urine pH 7.0 (4.6 - 8.0) 12/11/16 07:40 Ur Specific [place] 1.010 (1.005-1.030) 12/11/16 07:40 Urine Protein 100 mg/dL (NEGATIVE) H 12/11/16 07:40 Urine Glucose (UA) 250 mg/dL (NEGATIVE) H 12/11/16 07:40 Urine Ketones NEGATIVE mg/dL (NEGATIVE) 12/11/16 07:40 Urine Blood SMALL (NEGATIVE) H 12/11/16 07:40 Urine Nitrate NEGATIVE (NEGATIVE) 12/11/16 07:40 Urine Bilirubin NEGATIVE (NEGATIVE) 12/11/16 07:40 Urine Urobilinogen 0.2 E.U./dL (0.2 - 1.0) 12/11/16 07:40 Ur Leukocyte Esterase NEGATIVE (NEGATIVE) 12/11/16 07:40 Urine RBC 0-2 /hpf (0-5) H 12/11/16 07:40 Urine WBC 0-2 /hpf (0-5) 12/11/16 07:40 Ur Epithelial Cells OCCASIONAL /lpf (FEW) 12/11/16 07:40 Urine Bacteria NONE SEEN /hpf (NONE SEEN) 12/11/16 07:40 Levetiracetam 42.0 ug/mL (10.0-40.0) H 12/10/16 21:19 Hepatitis A IgM Ab Negative (Negative) 12/12/16 06:30 Hep Bs Antigen Negative (Negative) 12/12/16 06:30 Hep B Core IgM Ab Negative (Negative) 12/12/16 06:30 Hepatitis C Antibody 0.1 s/co ratio (0.0-0.9) 12/12/16 06:30 Blood Type AB POSITIVE 12/15/16 17:09 Antibody Screen NEGATIVE 12/15/16 17:09 - Physical Exam Vitals and I&O: Vital Signs Temp 98.2 F 12/16/16 04:00 Pulse 82 12/16/16 07:00 Resp 20 12/16/16 07:00 BP 116/72 12/16/16 07:00 Pulse Ox 96 12/16/16 07:00 Intake & Output 12/15/16 12/16/16 12/16/16 18:59 06:59 18:59 Intake Total 50 1173 Output Total 500 Balance 50 673 Weight (lbs) 44.452 kg Intake: Intake, IV Amount 50 100 Piperacillin Sodium/ 50 100 Tazobact 2.25 gm In Sodium Chloride 0.9% 50 ml @ 100 mls/hr IV Q8HR [facility] Rx#:[id number] Oral 0 Blood Product 1073 Output: Urine 500 Other: # Voids 1 # Bowel Movements 3 Stool Characteristics Bloody Liquid Black Active Medications: Current Medications Piperacillin Sod/Tazobactam (Sod 2.25 gm/ Sodium Chloride) 50 mls @ 100 mls/hr IV Q8HR RAD[facility] Stop: 02/09/17 01:44 Last Infusion: 12/16/16 06:30 Dose: Infused Dextrose/Sodium Chloride (D5-0.45ns) 1,000 mls @ 40 mls/hr IV .Q24H RADHA Stop: 02/10/17 06:50 Last Infusion: 12/15/16 06:00 Dose: 40 mls/hr Sodium Chloride (Nacl 0.9%) 1,000 mls @ 50 mls/hr IV .Q20H [facility] Stop: 02/13/17 16:17 Ibuprofen (Advil) 600 mg PO Q6HR PRN PRN Reason: Severe Pain Stop: 02/12/17 21:54 Last Admin: 12/15/16 11:29 Dose: 600 mg Insulin Aspart (Novolog Insulin Sliding Scale) 0 units SUBQ ACHS RADHA PRN Reason: Protocol Stop: 02/09/17 07:29 Last Admin: 12/16/16 07:01 Dose: Not Given Levetiracetam (Keppra) 500 mg PO BID [facility] Stop: 02/09/17 08:59 Last Admin: 12/15/16 18:50 Dose: Not Given Miscellaneous (Zosyn Iv Per Pharmacy) 1 ea MC PRN PRN PRN Reason: PROTOCOL Stop: 02/09/17 04:59 Morphine Sulfate (Morphine) 1 mg IVP Q4HR PRN PRN Reason: Abdominal Pain Stop: 02/13/17 21:42 Last Admin: 12/16/16 12:19 Dose: 1 mg Ondansetron HCl (Zofran) 4 mg IV Q6HR PRN PRN Reason: Nausea / Vomiting Stop: 02/09/17 01:22 Pantoprazole Sodium (Protonix) 40 mg PO BID [facility] Stop: 02/13/17 16:59 Last Admin: 12/15/16 18:50 Dose: Not Given Sitagliptin Phosphate (Januvia) 25 mg PO DAILY [facility] Stop: 02/10/17 08:59 Last Admin: 12/15/16 09:25 Dose: 25 mg General: Alert, Oriented x3, Mild distress HEENT: Atraumatic, Other (hard of hearing) Neck: Supple Cardiovascular: Regular rate, Normal S1, Normal S2 Lungs: Clear to auscultation Abdomen: Soft, Tender, Distended Extremities: Other (AV graft with BRUIT+) - Procedures Procedures: Procedures Procedure Code Date ABDOMEN SURGERY PROCEDURE 15226 10/21/16 DESTRUCTION OF STOMACH, PYLORUS, ENDO [id number] 12/11/16 DILATION OF COMMON BILE DUCT, ENDO [id number] 12/11/16 EGD BIOPSY SINGLE/MULTIPLE 14758 02/20/16 ENDO CHOLANGIOPANCREATOGRAPH 20530 12/11/16 EXCISION OF DUODENUM, ENDO, DIAGN [id number] 02/20/16 EXCISION OF STOMACH, PYLORUS, ENDO, DIAGN [id number] 02/20/16 INTRODUCTION OF OTHER THERAPEUTIC SUBSTANCE INTO UP GI, ENDO 1T3K0GT 12/11/16 INTRODUCTION OF SERUM/TOX/VACCINE INTO MUSCLE, PERC APPROACH [id number] 11/05/16 PERFORMANCE OF URINARY FILTRATION, MULTIPLE [id number] 10/21/16 PERFORMANCE OF URINARY FILTRATION, SINGLE [id number] 11/05/16 RELEASE GREATER OMENTUM, OPEN APPROACH [id number] 10/21/16 RELEASE LIVER, OPEN APPROACH [id number] 10/21/16 REMOVAL OF GALLBLADDER 01845 10/21/16 RESECTION OF GALLBLADDER, OPEN APPROACH [id number] 10/21/16 TRANSFUSE NONAUT RED BLOOD CELLS IN PERIPH VEIN, PERC 65623A3 11/05/16 UPPR GI SCOPE W/SUBMUC INJ 28094 12/11/16 Assessment/Plan - Problem List Patient Problems: All Active Problems NOT FEELING GOOD WITH NAUSEA (Acute) The administrative codes within the [employer] content you are accessing may have as of 02/06/2016. Please contact your IT Dept/Help Desk and request the latest Regulatory release be installed. IT Dept/Help Desk- Please refer to our FAQ page ([email or web address]) or contact O Customer Support at [email or web address] (Acute ~02/20/16) WEAKNESS WITH RIGHT LOWER QUAD PAIN (Acute) WEAKNESS WITH RIGHT LOWER QUAD PAIN (Acute) Nutritional Asmnt/Malnutr-PDOC - Dietary Evaluation Malnutrition Findings (Please click <Entered> for more info): Nutritional Asmnt/Malnutrition Start: 12/12/16 14: 00 Text: Status: Complete Freq: Document 12/12/16 14:00 [facility] (Rec: 12/12/16 14:10 [facility] [id number]) Nutritional Asmnt/Malnutrition Patient General Information Nutritional Screening High Risk Screening Diagnosis Common bile duct dilation Pertinent Medical Hx/Surgical Hx HTN, DM, ESRD on dialysis, seizures, cholecystectomy Subjective Information Pt is a 31-year-old male admitted with chief complaint of right sided abdominal pain. RD attempted visit twice but pt was sound asleep on both occasions. Pt appears to have a small body frame but no signs of muscle or fat depletion. IBW calculated with consideration of small body frame. Per ER report, pt has had vomiting and diarrhea for several days; no current reports of GI distress. Current Diet Order/ Nutrition Support Clear liquid Patient / S.O Can Pertinent Medications D5-0.45 ns, Dilaudid, Piperacillin, Januvia Pertinent Labs (12/10) Na 133L, Glucose 185H, LDL Cholesterol 30L. (12/12) Na 131L, K 5.5H, BUN 59H, Creatinine 8.4H, Total Bilirubin 3.8H, AST 330H, ALT 340H, Alkaline Phosphatase 522H, Amylase 127H Nutritional Hx/Data Height 1.57 m Height (Calculated Centimeters) 157.5 Current Weight (lbs) 47.174 kg Weight (Calculated Kilograms) 47.2 Weight (Calculated Grams) 79474.6 Usual body Weight (lbs) 104 % Usual Body Weight 100 [place] Body Weight 106 % [place] Body Weight 98 Recent Weight Change No Weight Status Approriate GI Symptoms GI Symptoms Vomitting Diarrhea Food Allergies No Skin Integrity/Comment: Rohit 21. Skin intact. Estimated Nutritional Goals BEE in Kcals: Using Current wt Calories/Kcals/Kg Based on current wt 47.2 kg with consideration of dialysis Kcals Calculated 7625-7987 kcals/day (30-35 kcals/kg) Protein: Using Current wt Protein g/kg: Based on current wt 47.2 kg with consideration of dialysis Protein Calculated 57-71 gm/day (1.2-1.5 gm/kg) Fluid: ml Per MD/DO Nutritional Problem 1. Problem Problem Inadequate energy/protein intake related to Etiology altered GI function with vomiting and diarrhea as evidenced by Signs/Symptoms: need for clear liquid diet. Malnutrition Alert Protein-Calorie Malnutrition N/A Malnutrition Related to Morbid Obesity Malnutrition related to morbid obesity No Intervention/Recommendation Recommendations by RD Increase Calorie Intake Protein supplementation Comments 1. Recommend Boost Breeze TID with clear liquid diet to promote nutritional intake. Encourage oral intake. 2. Advance as tolerated to renal diet with Novosource Renal BID. Expected Outcomes/Goals Expected Outcomes/Goals Have pt meet at least 75% of estimated nutritional needs with acceptable tolerance. Physician Parameters for PEM Normal Weight % 90% - 110% (Normal) Body Mass Index (BMI) 18 - 24 (Mild) Serum Albumin (g/dl) 3.5 - 5.0 (Normal)
[2016-12-16] MEDS ORDERED: Probiotic Screen MC PRN (13:14)
[2016-12-16] MEDS: Pantoprazole 40 mg EC Tab PO SCH ×2 (13:52→16:33)
[2016-12-16] MEDS ORDERED: Pantoprazole 80 MG in Sodium Chloride 0.9% 100 ML IV SCH (18:15)
[2016-12-16] MEDS ORDERED: methylPREDNISolone SS 40 mg Vial IV ONE (19:51)
[2016-12-17] MEDS: HYDROmorphone 1 mg/mL 1mL Syr IVP PRN ×5 (01:41→20:32)
--- NOTE | 2016-12-17 05:22 | Progress Notes ---
DATE: 12/16/2016 SUBJECTIVE: Events noted. The patient was seen earlier in the day. No overt GI bleeding noted, pending transfer to floor. OBJECTIVE: VITAL SIGNS: Noted. GENERAL: The patient is well-developed, chronically ill-appearing male in no acute distress. CARDIOVASCULAR: Regular rate and rhythm. ABDOMEN: Soft, nontender, nondistended. RELEVANT LABS: WBC 8.1, hemoglobin 10.3, platelet count is 121. INR is 1.03, creatinine is 7.5, on dialysis. IMPRESSION: 1. Upper gastrointestinal bleed from post-sphincterotomy site at major ampulla , status post hemostasis yesterday by emergent endoscopy. 2. History of mild choledocholithiasis and bile duct sludge removed by ERCP and balloon sweeps. 3. End-stage renal disease. 4. Anemia. 5. Platelet dysfunction. 6. Mild coagulopathy, perhaps from chronic liver disease. 7. Abnormal liver enzymes suggestive of chronic liver disease, perhaps from previous transplant medication. 8. History of failed renal transplantation. RECOMMENDATIONS: 1. Monitor for gastrointestinal bleeding. 2. Protonix drip has been written for, but this hospital does not supply it. Again, the pharmacist has been made aware that having this drug available is imperative to stop the bleeding. Pepcid is not an acceptable alternative. We do have a choice of oral Protonix, which should be given twice daily. IV Protonix is deemed necessary for medical necessity, unfortunately the hospital refuses to provide it. 3. Monitor hemoglobin and transfuse to keep hemoglobin greater than 8. 4. Consider platelet transfusion if platelet count < 50,000. 5. Continue Hemodialysis as per Nephrology. 6. If bleeding is persistent, then may need angiography at the hospital, where they have Interventional Radiology capability. 7. Monitor hepatic synthetic function at this point. JOB# [id number] ALVIN
[2016-12-17 07:37] LABS: NEUTROPHILE ABSOLUTE 4.4 Th/cmm (1.8-8.0)
[2016-12-17 07:50] LABS: % BASOPHILS 0.8 % (0.0-2.0); % EOSINOPHILS 0.2 % (0.0-5.0); % LYMPHOCYTES 16.2 % (20.0-50.0); % MONOCYTES 2.1 % (2.0-10.0); % NEUTROPHILS 80.7 % (40.0-80.0); HEMATOCRIT 28.7 % (39.0-49.0); HEMOGLOBIN 9.9 gm/dL (13.2-17.3); MEAN CELL VOLUME 87.7 fl (80-99); MEAN CORPUSCULAR HEMOGLOBIN 30.3 pg (26.0-30.0); MEAN CORPUSCULAR HGB CONC 34.6 pg (28.0-36.0); MEAN PLATELET VOLUME 8.9 fl; PLATELET COUNT 111 Th/cmm (150-400); RED BLOOD COUNT 3.28 Mil/cmm (4.30-5.70)
[2016-12-17 08:02] LABS: ALB/GLOB RATIO 1.3 (1.0-1.8); ANION GAP 15.3 (7.0-16.0); BILIRUBIN,TOTAL 3.4 mg/dL (0.3-1.0); BUN/CREATININE RATIO 5.3; CALCIUM SERUM 9.9 mg/dL (8.6-10.3); CARBON DIOXIDE 22.3 mEq/L (21.0-31.0); POTASSIUM SERUM 3.6 mEq/L (3.5-5.1)
[2016-12-17 08:22] LABS: WHITE BLOOD COUNT 5.4 Th/cmm (4.8-10.8)
[2016-12-17 08:59] LABS: CREATININE - SERUM 5.5 mg/dL (0.7-1.3)
[2016-12-17] MEDS: Pantoprazole 40 mg EC Tab PO SCH ×2 (09:00→16:26)
[2016-12-17 10:12] LABS: HEP B CORE IGM Negative (Negative); HEP C ANTIBODY <0.1 s/co ratio (0.0-0.9); IRON SATURATION 85 % (15-55); TIBC (LCI) 168 ug/dL (250-450); UIBC 25 ug/dL (111-343)
[2016-12-17] MEDS: INSULIN ASPART SLIDING SCALE 100 UNITS/ML UNIT SUBQ SCH ×4 (10:29→21:30)
[2016-12-17] MEDS: Lactobacillus Rhamnosus 10 Billion CFU Capsule PO SCH (10:30)
--- NOTE | 2016-12-17 11:23 | General Progress Note ---
Subjective - Review of Systems Service Date: 12/17/16 Events since last encounter: Hb stable no new bleeding Objective - Results Result Diagrams: 12/17/16 06:50 12/17/16 06:50 Recent Labs: Laboratory Last Values WBC 5.4 Th/cmm (4.8-10.8) D 12/17/16 06:50 RBC 3.28 Mil/cmm (4.30-5.70) L 12/17/16 06:50 Hgb 9.9 gm/dL (13.2-17.3) L 12/17/16 06:50 Hct 28.7 % (39.0-49.0) L 12/17/16 06:50 MCV 87.7 fl (80-99) 12/17/16 06:50 MCH 30.3 pg (26.0-30.0) H 12/17/16 06:50 MCHC Differential 34.6 pg (28.0-36.0) 12/17/16 06:50 RDW 16.0 % (11.5-20.0) 12/17/16 06:50 Plt Count 111 Th/cmm (150-400) L 12/17/16 06:50 MPV 8.9 fl 12/17/16 06:50 Neutrophils % 80.7 % (40.0-80.0) H 12/17/16 06:50 Band Neutrophils % 0 % (0-10) 12/14/16 06:36 Lymphocytes % 16.2 % (20.0-50.0) L 12/17/16 06:50 Monocytes % 2.1 % (2.0-10.0) 12/17/16 06:50 Eosinophils % 0.2 % (0.0-5.0) 12/17/16 06:50 Basophils % 0.8 % (0.0-2.0) 12/17/16 06:50 Neutrophils (Manual) 41 % (40-80) 12/15/16 05:49 Lymphocytes 42 % (20-50) 12/15/16 05:49 Monocytes 9 % (2-10) 12/15/16 05:49 Eosinophils 7 % (0-5) H 12/15/16 05:49 Basophils 1 % (0-3) 12/15/16 05:49 Platelet Estimate DECREASED PLATELETS (NORMAL) 12/15/16 05:49 Platelet Morphology NORMAL (NORMAL) 12/15/16 05:49 Anisocytosis 1+ 12/15/16 05:49 RBC Morph Micro Appear ABNORMAL (NORMAL) 12/15/16 05:49 PT 10.7 SECONDS (9.5-11.5) 12/16/16 09:05 INR 1.03 (0.5-1.4) 12/16/16 09:05 PTT (Actin FS) 27.1 SECONDS (26.0-38.0) 12/16/16 09:05 Sodium 136 mEq/L (136-145) 12/17/16 06:50 Potassium 3.6 mEq/L (3.5-5.1) 12/17/16 06:50 Chloride 102 mEq/L (98-107) 12/17/16 06:50 Carbon Dioxide 22.3 mEq/L (21.0-31.0) 12/17/16 06:50 Anion Gap 15.3 (7.0-16.0) 12/17/16 06:50 BUN 29 mg/dL (7-25) H 12/17/16 06:50 Creatinine 5.5 mg/dL (0.7-1.3) H* 12/17/16 06:50 Est GFR ( Amer) 15.6 ml/min (>90) 12/17/16 06:50 Est GFR (Non-Af Amer) 12.9 ml/min 12/17/16 06:50 BUN/Creatinine Ratio 5.3 12/17/16 06:50 Glucose 123 mg/dL (70-105) H 12/17/16 06:50 POC Glucose 106 MG/DL (70 - 105) H 12/17/16 11:17 Hemoglobin A1c % 5.0 % (4.0-6.0) 12/10/16 21:19 Calcium 9.9 mg/dL (8.6-10.3) 12/17/16 06:50 Iron 143 ug/dL (38-169) 12/16/16 09:05 TIBC 168 ug/dL (250-450) L 12/16/16 09:05 Iron Saturation 85 % (15-55) H 12/16/16 09:05 Unsaturated IBC 25 ug/dL (111-343) L 12/16/16 09:05 Ferritin 1578 ng/mL (30-400) H 12/16/16 09:05 Total Bilirubin 3.4 mg/dL (0.3-1.0) H 12/17/16 06:50 Direct Bilirubin 5.13 mg/dL (0.0-0.2) H 12/12/16 06:30 AST 41 U/L (13-39) H 12/17/16 06:50 ALT 85 U/L (7-52) H 12/17/16 06:50 Alkaline Phosphatase 308 U/L (34-104) H 12/17/16 06:50 Troponin I < 0.01 ng/mL (0.01-0.05) L 12/10/16 21:19 Total Protein 6.3 gm/dL (6.0-8.3) 12/17/16 06:50 Albumin 3.6 gm/dL (4.2-5.5) L 12/17/16 06:50 Globulin 2.7 gm/dL 12/17/16 06:50 Albumin/Globulin Ratio 1.3 (1.0-1.8) 12/17/16 06:50 Triglycerides 46 mg/dL (<150) 12/10/16 21:19 Cholesterol 122 mg/dL (<200) 12/10/16 21:19 LDL Cholesterol Direct 30 mg/dL (75-193) L 12/10/16 21:19 HDL Cholesterol 71 mg/dL (23-92) 12/10/16 21:19 Amylase 107 U/L (29-103) H 12/15/16 05:49 Lipase 48 U/L (11-82) 12/15/16 05:49 TSH 6.49 uIU/ml (0.34-5.60) H 12/10/16 21:19 Urine Source CLEAN C 12/11/16 07:40 Urine Color YELLOW 12/11/16 07:40 Urine Clarity H (CLEAR) 12/11/16 07:40 Urine pH 7.0 (4.6 - 8.0) 12/11/16 07:40 Ur Specific [place] 1.010 (1.005-1.030) 12/11/16 07:40 Urine Protein 100 mg/dL (NEGATIVE) H 12/11/16 07:40 Urine Glucose (UA) 250 mg/dL (NEGATIVE) H 12/11/16 07:40 Urine Ketones NEGATIVE mg/dL (NEGATIVE) 12/11/16 07:40 Urine Blood SMALL (NEGATIVE) H 12/11/16 07:40 Urine Nitrate NEGATIVE (NEGATIVE) 12/11/16 07:40 Urine Bilirubin NEGATIVE (NEGATIVE) 12/11/16 07:40 Urine Urobilinogen 0.2 E.U./dL (0.2 - 1.0) 12/11/16 07:40 Ur Leukocyte Esterase NEGATIVE (NEGATIVE) 12/11/16 07:40 Urine RBC 0-2 /hpf (0-5) H 12/11/16 07:40 Urine WBC 0-2 /hpf (0-5) 12/11/16 07:40 Ur Epithelial Cells OCCASIONAL /lpf (FEW) 12/11/16 07:40 Urine Bacteria NONE SEEN /hpf (NONE SEEN) 12/11/16 07:40 Levetiracetam 42.0 ug/mL (10.0-40.0) H 12/10/16 21:19 Hepatitis A IgM Ab Negative (Negative) 12/16/16 09:05 Hep Bs Antigen Negative (Negative) 12/16/16 09:05 Hep B Core IgM Ab Negative (Negative) 12/16/16 09:05 Hepatitis C Antibody <0.1 s/co ratio (0.0-0.9) 12/16/16 09:05 Blood Type AB POSITIVE 12/15/16 17:09 Antibody Screen NEGATIVE 12/15/16 17:09 - Physical Exam Vitals and I&O: Vital Signs Temp 97.4 F 12/17/16 08:00 Pulse 77 12/17/16 08:00 Resp 16 12/17/16 08:24 BP 95/50 12/17/16 08:00 Pulse Ox 99 12/17/16 08:00 Intake & Output 12/16/16 12/17/16 12/17/16 18:59 06:59 18:59 Intake Total 110 200 100 Output Total 2700 600 Balance -2590 -400 100 Weight (lbs) 44.452 kg 44.543 kg Intake: Intake, IV Amount 50 100 Pantoprazole 80 mg In 100 Sodium Chloride 0.9% 100 ml @ 10 mls/hr IV Q10H [facility] Rx#:[id number] Piperacillin Sodium/ 50 Tazobact 2.25 gm In Sodium Chloride 0.9% 50 ml @ 100 mls/hr IV Q8HR [facility] Rx#:[id number] Oral 60 200 Output: Urine 800 600 Hemodialysis 1900 Other: # Voids 1 # Bowel Movements 5 Stool Characteristics Liquid Soft Soft Black Black Bloody Active Medications: Current Medications Hydromorphone HCl (Dilaudid) 1 mg IVP Q4HR PRN PRN Reason: Pain (Moderate) Stop: 02/15/17 01:20 Last Admin: 12/17/16 10:33 Dose: 1 mg Sodium Chloride (Nacl 0.9%) 1,000 mls @ 50 mls/hr IV .Q20H [facility] Stop: 02/13/17 16:17 Pantoprazole Sodium 80 mg/ (Sodium Chloride) 100 mls @ 10 mls/hr IV Q10H [facility] Stop: 02/14/17 18:14 Last Infusion: 12/17/16 10:59 Dose: Infused Ibuprofen (Advil) 600 mg PO Q6HR PRN PRN Reason: Severe Pain Stop: 02/12/17 21:54 Last Admin: 12/17/16 00:43 Dose: 600 mg Insulin Aspart (Novolog Insulin Sliding Scale) 0 units SUBQ ACHS RADHA PRN Reason: Protocol Stop: 02/09/17 07:29 Last Admin: 12/17/16 10:29 Dose: Not Given Lactobacillus Rhamnosus (Culturelle) 1 each PO DAILY [facility] Stop: 02/15/17 08:59 Last Admin: 12/17/16 10:30 Dose: Not Given Levetiracetam (Keppra) 500 mg PO BID [facility] Stop: 02/09/17 08:59 Last Admin: 12/17/16 09:01 Dose: 500 mg Miscellaneous (Zosyn Iv Per Pharmacy) 1 ea PRN PRN PRN Reason: PROTOCOL Stop: 02/09/17 04:59 Miscellaneous (Probiotic Screen) 1 ea PRN PRN PRN Reason: PROTOCOL Stop: 02/14/17 13:13 Ondansetron HCl (Zofran) 4 mg IV Q6HR PRN PRN Reason: Nausea / Vomiting Stop: 02/09/17 01:22 Pantoprazole Sodium (Protonix) 40 mg PO BID [facility] Stop: 02/13/17 16:59 Last Admin: 12/17/16 09:00 Dose: 40 mg Sitagliptin Phosphate (Januvia) 25 mg PO DAILY [facility] Stop: 02/10/17 08:59 Last Admin: 12/17/16 09:01 Dose: 25 mg General: Alert, Oriented x3, Mild distress HEENT: Atraumatic, Other (hard of hearing) Neck: Supple Cardiovascular: Regular rate, Normal S1, Normal S2 Lungs: Clear to auscultation Abdomen: Soft, Tender, Distended Extremities: Other (AV graft with BRUIT+) - Procedures Procedures: Procedures Procedure Code Date ABDOMEN SURGERY PROCEDURE 85423 10/21/16 DESTRUCTION OF STOMACH, PYLORUS, ENDO [id number] 12/11/16 DILATION OF COMMON BILE DUCT, ENDO [id number] 12/11/16 EGD BIOPSY SINGLE/MULTIPLE 04847 02/20/16 ENDO CHOLANGIOPANCREATOGRAPH 68276 12/11/16 EXCISION OF DUODENUM, ENDO, DIAGN [id number] 02/20/16 EXCISION OF STOMACH, PYLORUS, ENDO, DIAGN [id number] 02/20/16 INTRODUCTION OF OTHER THERAPEUTIC SUBSTANCE INTO UP GI, ENDO 4T4T9CR 12/11/16 INTRODUCTION OF SERUM/TOX/VACCINE INTO MUSCLE, PERC APPROACH [id number] 11/05/16 PERFORMANCE OF URINARY FILTRATION, MULTIPLE [id number] 10/21/16 PERFORMANCE OF URINARY FILTRATION, SINGLE [id number] 11/05/16 RELEASE GREATER OMENTUM, OPEN APPROACH [id number] 10/21/16 RELEASE LIVER, OPEN APPROACH [id number] 10/21/16 REMOVAL OF GALLBLADDER 89219 10/21/16 RESECTION OF GALLBLADDER, OPEN APPROACH [id number] 10/21/16 TRANSFUSE NONAUT RED BLOOD CELLS IN PERIPH VEIN, PERC 31582Y9 11/05/16 UPPR GI SCOPE W/SUBMUC INJ 05388 12/11/16 Assessment/Plan - Problem List Patient Problems: All Active Problems NOT FEELING GOOD WITH NAUSEA (Acute) The administrative codes within the [employer] content you are accessing may have as of 02/06/2016. Please contact your IT Dept/Help Desk and request the latest Regulatory release be installed. IT Dept/Help Desk- Please refer to our FAQ page ([email or web address]) or contact [employer] Customer Support at [email or web address] (Acute ~02/20/16) WEAKNESS WITH RIGHT LOWER QUAD PAIN (Acute) WEAKNESS WITH RIGHT LOWER QUAD PAIN (Acute) Nutritional Asmnt/Malnutr-PDOC - Dietary Evaluation Malnutrition Findings (Please click <Entered> for more info): Nutritional Asmnt/Malnutrition Start: 12/12/16 14: 00 Text: Status: Complete Freq: Document 12/12/16 14:00 [facility] (Rec: 12/12/16 14:10 [facility] [id number]) Nutritional Asmnt/Malnutrition Patient General Information Nutritional Screening High Risk Screening Diagnosis Common bile duct dilation Pertinent Medical Hx/Surgical Hx HTN, DM, ESRD on dialysis, seizures, cholecystectomy Subjective Information Pt is a 31-year-old male admitted with chief complaint of right sided abdominal pain. RD attempted visit twice but pt was sound asleep on both occasions. Pt appears to have a small body frame but no signs of muscle or fat depletion. IBW calculated with consideration of small body frame. Per ER report, pt has had vomiting and diarrhea for several days; no current reports of GI distress. Current Diet Order/ Nutrition Support Clear liquid Patient / S.O Can Pertinent Medications D5-0.45 ns, Dilaudid, Piperacillin, Januvia Pertinent Labs (12/10) Na 133L, Glucose 185H, LDL Cholesterol 30L. (12/12) Na 131L, K 5.5H, BUN 59H, Creatinine 8.4H, Total Bilirubin 3.8H, AST 330H, ALT 340H, Alkaline Phosphatase 522H, Amylase 127H Nutritional Hx/Data Height 1.57 m Height (Calculated Centimeters) 157.5 Current Weight (lbs) 47.174 kg Weight (Calculated Kilograms) 47.2 Weight (Calculated Grams) 43906.6 Usual body Weight (lbs) 104 % Usual Body Weight 100 [place] Body Weight 106 % [place] Body Weight 98 Recent Weight Change No Weight Status Approriate GI Symptoms GI Symptoms Vomitting Diarrhea Food Allergies No Skin Integrity/Comment: Rohit Burnham. Skin intact. Estimated Nutritional Goals BEE in Kcals: Using Current wt Calories/Kcals/Kg Based on current wt 47.2 kg with consideration of dialysis Kcals Calculated 0879-1594 kcals/day (30-35 kcals/kg) Protein: Using Current wt Protein g/kg: Based on current wt 47.2 kg with consideration of dialysis Protein Calculated 57-71 gm/day (1.2-1.5 gm/kg) Fluid: ml Per MD/DO Nutritional Problem 1. Problem Problem Inadequate energy/protein intake related to Etiology altered GI function with vomiting and diarrhea as evidenced by Signs/Symptoms: need for clear liquid diet. Malnutrition Alert Protein-Calorie Malnutrition N/A Malnutrition Related to Morbid Obesity Malnutrition related to morbid obesity No Intervention/Recommendation Recommendations by RD Increase Calorie Intake Protein supplementation Comments 1. Recommend Boost Breeze TID with clear liquid diet to promote nutritional intake. Encourage oral intake. 2. Advance as tolerated to renal diet with Novosource Renal BID. Expected Outcomes/Goals Expected Outcomes/Goals Have pt meet at least 75% of estimated nutritional needs with acceptable tolerance. Physician Parameters for PEM Normal Weight % 90% - 110% (Normal) Body Mass Index (BMI) 18 - 24 (Mild) Serum Albumin (g/dl) 3.5 - 5.0 (Normal)
[2016-12-17] MEDS: Sodium Chloride 0.9% 1,000 ML IV SCH (14:05)
--- NOTE | 2016-12-17 16:30 | General Progress Note ---
Subjective - Review of Systems Subjective: Patient was seen and examined. No active GI bleeding. Hemodynemically stable. Patient is still asking for pain medication. Patient is on now full liquid diet. Discussed with nursing staff about overnight event. Patient had an allergic reactions to antibiotic and morphine now symptoms are resolved. Objective - Results Result Diagrams: 12/17/16 06:50 12/17/16 06:50 Recent Labs: Laboratory Last Values WBC 5.4 Th/cmm (4.8-10.8) D 12/17/16 06:50 RBC 3.28 Mil/cmm (4.30-5.70) L 12/17/16 06:50 Hgb 9.9 gm/dL (13.2-17.3) L 12/17/16 06:50 Hct 28.7 % (39.0-49.0) L 12/17/16 06:50 MCV 87.7 fl (80-99) 12/17/16 06:50 MCH 30.3 pg (26.0-30.0) H 12/17/16 06:50 MCHC Differential 34.6 pg (28.0-36.0) 12/17/16 06:50 RDW 16.0 % (11.5-20.0) 12/17/16 06:50 Plt Count 111 Th/cmm (150-400) L 12/17/16 06:50 MPV 8.9 fl 12/17/16 06:50 Neutrophils % 80.7 % (40.0-80.0) H 12/17/16 06:50 Band Neutrophils % 0 % (0-10) 12/14/16 06:36 Lymphocytes % 16.2 % (20.0-50.0) L 12/17/16 06:50 Monocytes % 2.1 % (2.0-10.0) 12/17/16 06:50 Eosinophils % 0.2 % (0.0-5.0) 12/17/16 06:50 Basophils % 0.8 % (0.0-2.0) 12/17/16 06:50 Neutrophils (Manual) 41 % (40-80) 12/15/16 05:49 Lymphocytes 42 % (20-50) 12/15/16 05:49 Monocytes 9 % (2-10) 12/15/16 05:49 Eosinophils 7 % (0-5) H 12/15/16 05:49 Basophils 1 % (0-3) 12/15/16 05:49 Platelet Estimate DECREASED PLATELETS (NORMAL) 12/15/16 05:49 Platelet Morphology NORMAL (NORMAL) 12/15/16 05:49 Anisocytosis 1+ 12/15/16 05:49 RBC Morph Micro Appear ABNORMAL (NORMAL) 12/15/16 05:49 PT 10.7 SECONDS (9.5-11.5) 12/16/16 09:05 INR 1.03 (0.5-1.4) 12/16/16 09:05 PTT (Actin FS) 27.1 SECONDS (26.0-38.0) 12/16/16 09:05 Sodium 136 mEq/L (136-145) 12/17/16 06:50 Potassium 3.6 mEq/L (3.5-5.1) 12/17/16 06:50 Chloride 102 mEq/L (98-107) 12/17/16 06:50 Carbon Dioxide 22.3 mEq/L (21.0-31.0) 12/17/16 06:50 Anion Gap 15.3 (7.0-16.0) 12/17/16 06:50 BUN 29 mg/dL (7-25) H 12/17/16 06:50 Creatinine 5.5 mg/dL (0.7-1.3) H* 12/17/16 06:50 Est GFR ( Amer) 15.6 ml/min (>90) 12/17/16 06:50 Est GFR (Non-Af Amer) 12.9 ml/min 12/17/16 06:50 BUN/Creatinine Ratio 5.3 12/17/16 06:50 Glucose 123 mg/dL (70-105) H 12/17/16 06:50 POC Glucose 106 MG/DL (70 - 105) H 12/17/16 11:17 Hemoglobin A1c % 5.0 % (4.0-6.0) 12/10/16 21:19 Calcium 9.9 mg/dL (8.6-10.3) 12/17/16 06:50 Iron 143 ug/dL (38-169) 12/16/16 09:05 TIBC 168 ug/dL (250-450) L 12/16/16 09:05 Iron Saturation 85 % (15-55) H 12/16/16 09:05 Unsaturated IBC 25 ug/dL (111-343) L 12/16/16 09:05 Ferritin 1578 ng/mL (30-400) H 12/16/16 09:05 Total Bilirubin 3.4 mg/dL (0.3-1.0) H 12/17/16 06:50 Direct Bilirubin 5.13 mg/dL (0.0-0.2) H 12/12/16 06:30 AST 41 U/L (13-39) H 12/17/16 06:50 ALT 85 U/L (7-52) H 12/17/16 06:50 Alkaline Phosphatase 308 U/L (34-104) H 12/17/16 06:50 Troponin I < 0.01 ng/mL (0.01-0.05) L 12/10/16 21:19 Total Protein 6.3 gm/dL (6.0-8.3) 12/17/16 06:50 Albumin 3.6 gm/dL (4.2-5.5) L 12/17/16 06:50 Globulin 2.7 gm/dL 12/17/16 06:50 Albumin/Globulin Ratio 1.3 (1.0-1.8) 12/17/16 06:50 Triglycerides 46 mg/dL (<150) 12/10/16 21:19 Cholesterol 122 mg/dL (<200) 12/10/16 21:19 LDL Cholesterol Direct 30 mg/dL (75-193) L 12/10/16 21:19 HDL Cholesterol 71 mg/dL (23-92) 12/10/16 21:19 Amylase 107 U/L (29-103) H 12/15/16 05:49 Lipase 48 U/L (11-82) 12/15/16 05:49 TSH 6.49 uIU/ml (0.34-5.60) H 12/10/16 21:19 Urine Source CLEAN C 12/11/16 07:40 Urine Color YELLOW 12/11/16 07:40 Urine Clarity H (CLEAR) 12/11/16 07:40 Urine pH 7.0 (4.6 - 8.0) 12/11/16 07:40 Ur Specific [place] 1.010 (1.005-1.030) 12/11/16 07:40 Urine Protein 100 mg/dL (NEGATIVE) H 12/11/16 07:40 Urine Glucose (UA) 250 mg/dL (NEGATIVE) H 12/11/16 07:40 Urine Ketones NEGATIVE mg/dL (NEGATIVE) 12/11/16 07:40 Urine Blood SMALL (NEGATIVE) H 12/11/16 07:40 Urine Nitrate NEGATIVE (NEGATIVE) 12/11/16 07:40 Urine Bilirubin NEGATIVE (NEGATIVE) 12/11/16 07:40 Urine Urobilinogen 0.2 E.U./dL (0.2 - 1.0) 12/11/16 07:40 Ur Leukocyte Esterase NEGATIVE (NEGATIVE) 12/11/16 07:40 Urine RBC 0-2 /hpf (0-5) H 12/11/16 07:40 Urine WBC 0-2 /hpf (0-5) 12/11/16 07:40 Ur Epithelial Cells OCCASIONAL /lpf (FEW) 12/11/16 07:40 Urine Bacteria NONE SEEN /hpf (NONE SEEN) 12/11/16 07:40 Levetiracetam 42.0 ug/mL (10.0-40.0) H 12/10/16 21:19 Hepatitis A IgM Ab Negative (Negative) 12/16/16 09:05 Hep Bs Antigen Negative (Negative) 12/16/16 09:05 Hep B Core IgM Ab Negative (Negative) 12/16/16 09:05 Hepatitis C Antibody <0.1 s/co ratio (0.0-0.9) 12/16/16 09:05 Blood Type AB POSITIVE 12/15/16 17:09 Antibody Screen NEGATIVE 12/15/16 17:09 - Physical Exam Vitals and I&O: Vital Signs Temp 97.9 F 12/17/16 16:00 Pulse 71 12/17/16 16:00 Resp 18 12/17/16 16:00 BP 111/43 12/17/16 16:00 Pulse Ox 100 12/17/16 16:00 Intake & Output 12/16/16 12/17/16 12/17/16 18:59 06:59 18:59 Intake Total 110 200 100 Output Total 2700 600 Balance -2590 -400 100 Weight (lbs) 44.452 kg 44.543 kg 44.452 kg Intake: Intake, IV Amount 50 100 Pantoprazole 80 mg In 100 Sodium Chloride 0.9% 100 ml @ 10 mls/hr IV Q10H [facility] Rx#:[id number] Piperacillin Sodium/ 50 Tazobact 2.25 gm In Sodium Chloride 0.9% 50 ml @ 100 mls/hr IV Q8HR [facility] Rx#:[id number] Oral 60 200 Output: Urine 800 600 Hemodialysis 1900 Other: # Voids 1 # Bowel Movements 5 2 Stool Characteristics Liquid Soft Soft Black Black Bloody Active Medications: Current Medications Hydromorphone HCl (Dilaudid) 1 mg IVP Q4HR PRN PRN Reason: Pain (Moderate) Stop: 02/15/17 01:20 Last Admin: 12/17/16 14:55 Dose: 1 mg Sodium Chloride (Nacl 0.9%) 1,000 mls @ 50 mls/hr IV .Q20H [facility] Stop: 02/13/17 16:17 Last Admin: 12/17/16 14:05 Dose: 50 mls/hr Pantoprazole Sodium 80 mg/ (Sodium Chloride) 100 mls @ 10 mls/hr IV Q10H [facility] Stop: 02/14/17 18:14 Last Infusion: 12/17/16 10:59 Dose: Infused Ibuprofen (Advil) 600 mg PO Q6HR PRN PRN Reason: Severe Pain Stop: 02/12/17 21:54 Last Admin: 12/17/16 00:43 Dose: 600 mg Insulin Aspart (Novolog Insulin Sliding Scale) 0 units SUBQ ACHS [facility] PRN Reason: Protocol Stop: 02/09/17 07:29 Last Admin: 12/17/16 11:23 Dose: Not Given Lactobacillus Rhamnosus (Culturelle) 1 each PO DAILY [facility] Stop: 02/15/17 08:59 Last Admin: 12/17/16 10:30 Dose: Not Given Levetiracetam (Keppra) 500 mg PO BID [facility] Stop: 02/09/17 08:59 Last Admin: 12/17/16 16:26 Dose: 500 mg Miscellaneous (Zosyn Iv Per Pharmacy) 1 ea PRN PRN PRN Reason: PROTOCOL Stop: 02/09/17 04:59 Miscellaneous (Probiotic Screen) 1 ea PRN PRN PRN Reason: PROTOCOL Stop: 02/14/17 13:13 Ondansetron HCl (Zofran) 4 mg IV Q6HR PRN PRN Reason: Nausea / Vomiting Stop: 02/09/17 01:22 Pantoprazole Sodium (Protonix) 40 mg PO BID [facility] Stop: 02/13/17 16:59 Last Admin: 12/17/16 16:26 Dose: 40 mg Sitagliptin Phosphate (Januvia) 25 mg PO DAILY [facility] Stop: 02/10/17 08:59 Last Admin: 12/17/16 09:01 Dose: 25 mg General: Alert, Oriented x3, Mild distress HEENT: Atraumatic Neck: Supple Cardiovascular: Regular rate, Normal S1, Normal S2 Lungs: Clear to auscultation Abdomen: Soft, Tender, Distended Extremities: Other (AV graft with BRUIT+) - Procedures Procedures: Procedures Procedure Code Date ABDOMEN SURGERY PROCEDURE 17597 10/21/16 DESTRUCTION OF STOMACH, PYLORUS, ENDO [id number] 12/11/16 DILATION OF COMMON BILE DUCT, ENDO [id number] 12/11/16 EGD BIOPSY SINGLE/MULTIPLE 21281 02/20/16 ENDO CHOLANGIOPANCREATOGRAPH 79144 12/11/16 EXCISION OF DUODENUM, ENDO, DIAGN [id number] 02/20/16 EXCISION OF STOMACH, PYLORUS, ENDO, DIAGN [id number] 02/20/16 INTRODUCTION OF OTHER THERAPEUTIC SUBSTANCE INTO UP GI, ENDO [id number] 12/11/16 INTRODUCTION OF SERUM/TOX/VACCINE INTO MUSCLE, PERC APPROACH [id number] 11/05/16 PERFORMANCE OF URINARY FILTRATION, MULTIPLE [id number] 10/21/16 PERFORMANCE OF URINARY FILTRATION, SINGLE [id number] 11/05/16 RELEASE GREATER OMENTUM, OPEN APPROACH [id number] 10/21/16 RELEASE LIVER, OPEN APPROACH [id number] 10/21/16 REMOVAL OF GALLBLADDER 18048 10/21/16 RESECTION OF GALLBLADDER, OPEN APPROACH [id number] 10/21/16 TRANSFUSE NONAUT RED BLOOD CELLS IN PERIPH VEIN, PERC 49113V1 11/05/16 UPPR GI SCOPE W/SUBMUC INJ 97236 12/11/16 Assessment/Plan - Problem List Patient Problems: All Active Problems NOT FEELING GOOD WITH NAUSEA (Acute) The administrative codes within the [employer] content you are accessing may have as of 02/06/2016. Please contact your IT Dept/Help Desk and request the latest Regulatory release be installed. IT Dept/Help Desk- Please refer to our FAQ page ([email or web address]) or contact [employer] Customer Support at [email or web address] (Acute ~02/20/16) WEAKNESS WITH RIGHT LOWER QUAD PAIN (Acute) WEAKNESS WITH RIGHT LOWER QUAD PAIN (Acute) - Assessment Assessment: Obstructive jaundice S/p ERCP. end-stage renal disease on hemodialysis. Diabetes mellitus Seizure disorder Acute upper GI bleed after ERCP suspected bleeding from post sphincterotomy site. Acute hemorrhagic anemia status post blood transfusion Questionable chronic liver disease and hepatitis panel is negative. Diffuse abdominal pain Status post exploratory laparotomy for cholelithiasis with cholecystectomy a few weeks ago Bilateral hearing loss. - Plan Plan: Advance diet as tolerated. 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 Monitor blood sugar blood pressure. General nursing care. Symptoms management. Workup for chronic liver disease. Follow-up lab. Seizure precautions. Seizure medications. Chronic management of his medical illnesses. Follow-up consultants recommendation. Care plan reviewed and discussed with staff. Nutritional Asmnt/Malnutr-PDOC - Dietary Evaluation Malnutrition Findings (Please click <Entered> for more info): Nutritional Asmnt/Malnutrition Start: 12/12/16 14: 00 Text: Status: Complete Freq: Document 12/12/16 14:00 [facility] (Rec: 12/12/16 14:10 [facility] [id number]) Nutritional Asmnt/Malnutrition Patient General Information Nutritional Screening High Risk Screening Diagnosis Common bile duct dilation Pertinent Medical Hx/Surgical Hx HTN, DM, ESRD on dialysis, seizures, cholecystectomy Subjective Information Pt is a 31-year-old male admitted with chief complaint of right sided abdominal pain. RD attempted visit twice but pt was sound asleep on both occasions. Pt appears to have a small body frame but no signs of muscle or fat depletion. IBW calculated with consideration of small body frame. Per ER report, pt has had vomiting and diarrhea for several days; no current reports of GI distress. Current Diet Order/ Nutrition Support Clear liquid Patient / S.O Can Pertinent Medications D5-0.45 ns, Dilaudid, Piperacillin, Januvia Pertinent Labs (12/10) Na 133L, Glucose 185H, LDL Cholesterol 30L. (12/12) Na 131L, K 5.5H, BUN 59H, Creatinine 8.4H, Total Bilirubin 3.8H, AST 330H, ALT 340H, Alkaline Phosphatase 522H, Amylase 127H Nutritional Hx/Data Height 1.57 m Height (Calculated Centimeters) 157.5 Current Weight (lbs) 47.174 kg Weight (Calculated Kilograms) 47.2 Weight (Calculated Grams) 64337.6 Usual body Weight (lbs) 104 % Usual Body Weight 100 [place] Body Weight 106 % [place] Body Weight 98 Recent Weight Change No Weight Status Approriate GI Symptoms GI Symptoms Vomitting Diarrhea Food Allergies No Skin Integrity/Comment: Rohit 21. Skin intact. Estimated Nutritional Goals BEE in Kcals: Using Current wt Calories/Kcals/Kg Based on current wt 47.2 kg with consideration of dialysis Kcals Calculated 3765-4435 kcals/day (30-35 kcals/kg) Protein: Using Current wt Protein g/kg: Based on current wt 47.2 kg with consideration of dialysis Protein Calculated 57-71 gm/day (1.2-1.5 gm/kg) Fluid: ml Per MD/DO Nutritional Problem 1. Problem Problem Inadequate energy/protein intake related to Etiology altered GI function with vomiting and diarrhea as evidenced by Signs/Symptoms: need for clear liquid diet. Malnutrition Alert Protein-Calorie Malnutrition N/A Malnutrition Related to Morbid Obesity Malnutrition related to morbid obesity No Intervention/Recommendation Recommendations by RD Increase Calorie Intake Protein supplementation Comments 1. Recommend Boost Breeze TID with clear liquid diet to promote nutritional intake. Encourage oral intake. 2. Advance as tolerated to renal diet with Novosource Renal BID. Expected Outcomes/Goals Expected Outcomes/Goals Have pt meet at least 75% of estimated nutritional needs with acceptable tolerance. Physician Parameters for PEM Normal Weight % 90% - 110% (Normal) Body Mass Index (BMI) 18 - 24 (Mild) Serum Albumin (g/dl) 3.5 - 5.0 (Normal)
[2016-12-18] MEDS: HYDROmorphone 1 mg/mL 1mL Syr IVP PRN ×6 (01:03→22:10)
[2016-12-18] MEDS: INSULIN ASPART SLIDING SCALE 100 UNITS/ML UNIT SUBQ SCH ×4 (07:24→21:41)
[2016-12-18 08:39] LABS: % BASOPHILS 1.2 % (0.0-2.0); % EOSINOPHILS 5.3 % (0.0-5.0); % LYMPHOCYTES 38.3 % (20.0-50.0); % MONOCYTES 4.6 % (2.0-10.0); % NEUTROPHILS 50.6 % (40.0-80.0); HEMATOCRIT 26.6 % (39.0-49.0); HEMOGLOBIN 8.9 gm/dL (13.2-17.3); MEAN CELL VOLUME 89.1 fl (80-99); MEAN CORPUSCULAR HEMOGLOBIN 29.8 pg (26.0-30.0); MEAN CORPUSCULAR HGB CONC 33.5 pg (28.0-36.0); MEAN PLATELET VOLUME 9.4 fl; NEUTROPHILE ABSOLUTE 3.4 Th/cmm (1.8-8.0); RED BLOOD COUNT 2.98 Mil/cmm (4.30-5.70); RED CELL DISTRIBUTION WIDTH 15.5 % (11.5-20.0)
[2016-12-18 08:44] LABS: PLATELET COUNT 137 Th/cmm (150-400); WHITE BLOOD COUNT 6.6 Th/cmm (4.8-10.8)
[2016-12-18 09:08] LABS: ALB/GLOB RATIO 1.4 (1.0-1.8); ANION GAP 16.7 (7.0-16.0); BUN/CREATININE RATIO 6.1; CALCIUM SERUM 8.8 mg/dL (8.6-10.3); CARBON DIOXIDE 18.9 mEq/L (21.0-31.0); POTASSIUM SERUM 3.6 mEq/L (3.5-5.1)
[2016-12-18] MEDS: Pantoprazole 40 mg EC Tab PO SCH ×2 (09:34→16:57)
[2016-12-18 09:51] LABS: CREATININE - SERUM 7.1 mg/dL (0.7-1.3)
[2016-12-18] MEDS: Sodium Chloride 0.9% 1,000 ML IV SCH (11:22)
[2016-12-18] MEDS: Lactobacillus Rhamnosus 10 Billion CFU Capsule PO SCH (11:46)
--- NOTE | 2016-12-18 15:24 | General Progress Note ---
Subjective - Review of Systems Subjective: Patient was seen and examined. Patient is still having some black bowel movements. Objective - Results Result Diagrams: 12/18/16 07:46 12/18/16 07:46 Recent Labs: Laboratory Last Values WBC 6.6 Th/cmm (4.8-10.8) D 12/18/16 07:46 RBC 2.98 Mil/cmm (4.30-5.70) L 12/18/16 07:46 Hgb 8.9 gm/dL (13.2-17.3) L 12/18/16 07:46 Hct 26.6 % (39.0-49.0) L 12/18/16 07:46 MCV 89.1 fl (80-99) 12/18/16 07:46 MCH 29.8 pg (26.0-30.0) 12/18/16 07:46 MCHC Differential 33.5 pg (28.0-36.0) 12/18/16 07:46 RDW 15.5 % (11.5-20.0) 12/18/16 07:46 Plt Count 137 Th/cmm (150-400) L D 12/18/16 07:46 MPV 9.4 fl 12/18/16 07:46 Neutrophils % 50.6 % (40.0-80.0) 12/18/16 07:46 Band Neutrophils % 0 % (0-10) 12/14/16 06:36 Lymphocytes % 38.3 % (20.0-50.0) 12/18/16 07:46 Monocytes % 4.6 % (2.0-10.0) 12/18/16 07:46 Eosinophils % 5.3 % (0.0-5.0) H 12/18/16 07:46 Basophils % 1.2 % (0.0-2.0) 12/18/16 07:46 Neutrophils (Manual) 41 % (40-80) 12/15/16 05:49 Lymphocytes 42 % (20-50) 12/15/16 05:49 Monocytes 9 % (2-10) 12/15/16 05:49 Eosinophils 7 % (0-5) H 12/15/16 05:49 Basophils 1 % (0-3) 12/15/16 05:49 Platelet Estimate DECREASED PLATELETS (NORMAL) 12/15/16 05:49 Platelet Morphology NORMAL (NORMAL) 12/15/16 05:49 Anisocytosis 1+ 12/15/16 05:49 RBC Morph Micro Appear ABNORMAL (NORMAL) 12/15/16 05:49 PT 10.7 SECONDS (9.5-11.5) 12/16/16 09:05 INR 1.03 (0.5-1.4) 12/16/16 09:05 PTT (Actin FS) 27.1 SECONDS (26.0-38.0) 12/16/16 09:05 Sodium 137 mEq/L (136-145) 12/18/16 07:46 Potassium 3.6 mEq/L (3.5-5.1) 12/18/16 07:46 Chloride 105 mEq/L (98-107) 12/18/16 07:46 Carbon Dioxide 18.9 mEq/L (21.0-31.0) L 12/18/16 07:46 Anion Gap 16.7 (7.0-16.0) H 12/18/16 07:46 BUN 43 mg/dL (7-25) H 12/18/16 07:46 Creatinine 7.1 mg/dL (0.7-1.3) H* 12/18/16 07:46 Est GFR ( Amer) 11.6 ml/min (>90) 12/18/16 07:46 Est GFR (Non-Af Amer) 9.6 ml/min 12/18/16 07:46 BUN/Creatinine Ratio 6.1 12/18/16 07:46 Glucose 92 mg/dL (70-105) 12/18/16 07:46 POC Glucose 80 MG/DL (70 - 105) 12/18/16 05:58 Hemoglobin A1c % 5.0 % (4.0-6.0) 12/10/16 21:19 Calcium 8.8 mg/dL (8.6-10.3) 12/18/16 07:46 Iron 143 ug/dL (38-169) 12/16/16 09:05 TIBC 168 ug/dL (250-450) L 12/16/16 09:05 Iron Saturation 85 % (15-55) H 12/16/16 09:05 Unsaturated IBC 25 ug/dL (111-343) L 12/16/16 09:05 Ferritin 1578 ng/mL (30-400) H 12/16/16 09:05 Total Bilirubin 2.0 mg/dL (0.3-1.0) H 12/18/16 07:46 Direct Bilirubin 5.13 mg/dL (0.0-0.2) H 12/12/16 06:30 AST 40 U/L (13-39) H 12/18/16 07:46 ALT 68 U/L (7-52) H 12/18/16 07:46 Alkaline Phosphatase 253 U/L (34-104) H 12/18/16 07:46 Troponin I < 0.01 ng/mL (0.01-0.05) L 12/10/16 21:19 Total Protein 5.5 gm/dL (6.0-8.3) L 12/18/16 07:46 Albumin 3.2 gm/dL (4.2-5.5) L 12/18/16 07:46 Globulin 2.3 gm/dL 12/18/16 07:46 Albumin/Globulin Ratio 1.4 (1.0-1.8) 12/18/16 07:46 Triglycerides 46 mg/dL (<150) 12/10/16 21:19 Cholesterol 122 mg/dL (<200) 12/10/16 21:19 LDL Cholesterol Direct 30 mg/dL (75-193) L 12/10/16 21:19 HDL Cholesterol 71 mg/dL (23-92) 12/10/16 21:19 Amylase 107 U/L (29-103) H 12/15/16 05:49 Lipase 48 U/L (11-82) 12/15/16 05:49 TSH 6.49 uIU/ml (0.34-5.60) H 12/10/16 21:19 Urine Source CLEAN C 12/11/16 07:40 Urine Color YELLOW 12/11/16 07:40 Urine Clarity H (CLEAR) 12/11/16 07:40 Urine pH 7.0 (4.6 - 8.0) 12/11/16 07:40 Ur Specific [place] 1.010 (1.005-1.030) 12/11/16 07:40 Urine Protein 100 mg/dL (NEGATIVE) H 12/11/16 07:40 Urine Glucose (UA) 250 mg/dL (NEGATIVE) H 12/11/16 07:40 Urine Ketones NEGATIVE mg/dL (NEGATIVE) 12/11/16 07:40 Urine Blood SMALL (NEGATIVE) H 12/11/16 07:40 Urine Nitrate NEGATIVE (NEGATIVE) 12/11/16 07:40 Urine Bilirubin NEGATIVE (NEGATIVE) 12/11/16 07:40 Urine Urobilinogen 0.2 E.U./dL (0.2 - 1.0) 12/11/16 07:40 Ur Leukocyte Esterase NEGATIVE (NEGATIVE) 12/11/16 07:40 Urine RBC 0-2 /hpf (0-5) H 12/11/16 07:40 Urine WBC 0-2 /hpf (0-5) 12/11/16 07:40 Ur Epithelial Cells OCCASIONAL /lpf (FEW) 12/11/16 07:40 Urine Bacteria NONE SEEN /hpf (NONE SEEN) 12/11/16 07:40 Levetiracetam 42.0 ug/mL (10.0-40.0) H 12/10/16 21:19 Hepatitis A IgM Ab Negative (Negative) 12/16/16 09:05 Hep Bs Antigen Negative (Negative) 12/16/16 09:05 Hep B Core IgM Ab Negative (Negative) 12/16/16 09:05 Hepatitis C Antibody <0.1 s/co ratio (0.0-0.9) 12/16/16 09:05 Blood Type AB POSITIVE 12/15/16 17:09 Antibody Screen NEGATIVE 12/15/16 17:09 - Physical Exam Vitals and I&O: Vital Signs Temp 97.7 F 12/18/16 11:00 Pulse 65 12/18/16 11:00 Resp 18 12/18/16 11:00 BP 89/60 12/18/16 11:00 Pulse Ox 98 12/18/16 11:00 Intake & Output 12/17/16 12/18/16 12/18/16 18:59 06:59 18:59 Intake Total 1113.333 200 786.667 Balance 1113.333 200 786.667 Weight (lbs) 44.452 kg 44.225 kg Intake: Intake, IV Amount 313.333 786.667 Pantoprazole 80 mg In 100 Sodium Chloride 0.9% 100 ml @ 10 mls/hr IV Q10H [facility] Rx#:[id number] Sodium Chloride 0.9% 1, 213.333 786.667 000 ml @ 50 mls/hr IV . Q20H [facility] Rx#:[id number] Oral 800 200 Other: # Voids 3 2 # Bowel Movements 4 2 Stool Characteristics Soft Soft Soft Active Medications: Current Medications Hydromorphone HCl (Dilaudid) 1 mg IVP Q4HR PRN PRN Reason: Pain (Moderate) Stop: 02/15/17 01:20 Last Admin: 12/18/16 14:25 Dose: 1 mg Sodium Chloride (Nacl 0.9%) 1,000 mls @ 50 mls/hr IV .Q20H [facility] Stop: 02/13/17 16:17 Last Admin: 12/18/16 11:22 Dose: 50 mls/hr Pantoprazole Sodium 80 mg/ (Sodium Chloride) 100 mls @ 10 mls/hr IV Q10H [facility] Stop: 02/14/17 18:14 Last Infusion: 12/17/16 10:59 Dose: Infused Ibuprofen (Advil) 600 mg PO Q6HR PRN PRN Reason: Severe Pain Stop: 02/12/17 21:54 Last Admin: 12/17/16 00:43 Dose: 600 mg Insulin Aspart (Novolog Insulin Sliding Scale) 0 units SUBQ ACHS RADHA PRN Reason: Protocol Stop: 02/09/17 07:29 Last Admin: 12/18/16 11:46 Dose: Not Given Lactobacillus Rhamnosus (Culturelle) 1 each PO DAILY [facility] Stop: 02/15/17 08:59 Last Admin: 12/18/16 11:46 Dose: Not Given Levetiracetam (Keppra) 500 mg PO BID [facility] Stop: 02/09/17 08:59 Last Admin: 12/18/16 09:34 Dose: 500 mg Miscellaneous (Zosyn Iv Per Pharmacy) 1 ea MC PRN PRN PRN Reason: PROTOCOL Stop: 02/09/17 04:59 Miscellaneous (Probiotic Screen) 1 ea PRN PRN PRN Reason: PROTOCOL Stop: 02/14/17 13:13 Ondansetron HCl (Zofran) 4 mg IV Q6HR PRN PRN Reason: Nausea / Vomiting Stop: 02/09/17 01:22 Pantoprazole Sodium (Protonix) 40 mg PO BID [facility] Stop: 02/13/17 16:59 Last Admin: 12/18/16 09:34 Dose: 40 mg Sitagliptin Phosphate (Januvia) 25 mg PO DAILY [facility] Stop: 02/10/17 08:59 Last Admin: 12/18/16 09:34 Dose: 25 mg General: Alert, Oriented x3, Mild distress HEENT: Atraumatic Neck: Supple Cardiovascular: Regular rate, Normal S1, Normal S2 Lungs: Clear to auscultation Abdomen: Soft, Tender, Distended Extremities: Other (AV graft with BRUIT+) - Procedures Procedures: Procedures Procedure Code Date ABDOMEN SURGERY PROCEDURE 33097 10/21/16 DESTRUCTION OF STOMACH, PYLORUS, ENDO [id number] 12/11/16 DILATION OF COMMON BILE DUCT, ENDO [id number] 12/11/16 EGD BIOPSY SINGLE/MULTIPLE 08786 02/20/16 ENDO CHOLANGIOPANCREATOGRAPH 64472 12/11/16 EXCISION OF DUODENUM, ENDO, DIAGN [id number] 02/20/16 EXCISION OF STOMACH, PYLORUS, ENDO, DIAGN [id number] 02/20/16 INTRODUCTION OF OTHER THERAPEUTIC SUBSTANCE INTO UP GI, ENDO [id number] 12/11/16 INTRODUCTION OF SERUM/TOX/VACCINE INTO MUSCLE, PERC APPROACH [id number] 11/05/16 PERFORMANCE OF URINARY FILTRATION, MULTIPLE [id number] 10/21/16 PERFORMANCE OF URINARY FILTRATION, SINGLE [id number] 11/05/16 RELEASE GREATER OMENTUM, OPEN APPROACH [id number] 10/21/16 RELEASE LIVER, OPEN APPROACH [id number] 10/21/16 REMOVAL OF GALLBLADDER 91172 10/21/16 RESECTION OF GALLBLADDER, OPEN APPROACH [id number] 10/21/16 TRANSFUSE NONAUT RED BLOOD CELLS IN PERIPH VEIN, PERC 90033L2 11/05/16 UPPR GI SCOPE W/SUBMUC INJ 33404 12/11/16 Assessment/Plan - Problem List Patient Problems: All Active Problems NOT FEELING GOOD WITH NAUSEA (Acute) The administrative codes within the [employer] content you are accessing may have as of 02/06/2016. Please contact your IT Dept/Help Desk and request the latest Regulatory release be installed. IT Dept/Help Desk- Please refer to our FAQ page ([email or web address] or contact [employer] Customer Support at [email or web address] (Acute ~02/20/16) WEAKNESS WITH RIGHT LOWER QUAD PAIN (Acute) WEAKNESS WITH RIGHT LOWER QUAD PAIN (Acute) - Assessment Assessment: Obstructive jaundice S/p ERCP. end-stage renal disease on hemodialysis. Diabetes mellitus Seizure disorder Acute upper GI bleed after ERCP bleeding from post sphincterotomy site as per GI patient is still oozing. Acute hemorrhagic anemia status post blood transfusion Questionable chronic liver disease and hepatitis panel is negative. Diffuse abdominal pain Status post exploratory laparotomy for cholelithiasis with cholecystectomy a few weeks ago Bilateral hearing loss. - Plan Plan: Advance diet as tolerated. Hold discharge. Hemodialysis as planned by russian language professor.. Monitor blood sugar blood pressure. General nursing care. Symptoms management. Workup for chronic liver disease. Follow-up lab. Seizure precautions. Seizure medications. Chronic management of his medical illnesses. Follow-up consultants recommendation. Care plan reviewed and discussed with staff. Nutritional Asmnt/Malnutr-PDOC - Dietary Evaluation Malnutrition Findings (Please click <Entered> for more info): Nutritional Asmnt/Malnutrition Start: 12/12/16 14: 00 Text: Status: Complete Freq: Document 12/12/16 14:00 [facility] (Rec: 12/12/16 14:10 [facility] [id number]) Nutritional Asmnt/Malnutrition Patient General Information Nutritional Screening High Risk Screening Diagnosis Common bile duct dilation Pertinent Medical Hx/Surgical Hx HTN, DM, ESRD on dialysis, seizures, cholecystectomy Subjective Information Pt is a 31-year-old male admitted with chief complaint of right sided abdominal pain. RD attempted visit twice but pt was sound asleep on both occasions. Pt appears to have a small body frame but no signs of muscle or fat depletion. IBW calculated with consideration of small body frame. Per ER report, pt has had vomiting and diarrhea for several days; no current reports of GI distress. Current Diet Order/ Nutrition Support Clear liquid Patient / S.O Can Pertinent Medications D5-0.45 ns, Dilaudid, Piperacillin, Januvia Pertinent Labs (12/10) Na 133L, Glucose 185H, LDL Cholesterol 30L. (12/12) Na 131L, K 5.5H, BUN 59H, Creatinine 8.4H, Total Bilirubin 3.8H, AST 330H, ALT 340H, Alkaline Phosphatase 522H, Amylase 127H Nutritional Hx/Data Height 1.57 m Height (Calculated Centimeters) 157.5 Current Weight (lbs) 47.174 kg Weight (Calculated Kilograms) 47.2 Weight (Calculated Grams) 90006.6 Usual body Weight (lbs) 104 % Usual Body Weight 100 [place] Body Weight 106 % [place] Body Weight 98 Recent Weight Change No Weight Status Approriate GI Symptoms GI Symptoms Vomitting Diarrhea Food Allergies No Skin Integrity/Comment: Rohit 21. Skin intact. Estimated Nutritional Goals BEE in Kcals: Using Current wt Calories/Kcals/Kg Based on current wt 47.2 kg with consideration of dialysis Kcals Calculated 1501-4077 kcals/day (30-35 kcals/kg) Protein: Using Current wt Protein g/kg: Based on current wt 47.2 kg with consideration of dialysis Protein Calculated 57-71 gm/day (1.2-1.5 gm/kg) Fluid: ml Per MD/DO Nutritional Problem 1. Problem Problem Inadequate energy/protein intake related to Etiology altered GI function with vomiting and diarrhea as evidenced by Signs/Symptoms: need for clear liquid diet. Malnutrition Alert Protein-Calorie Malnutrition N/A Malnutrition Related to Morbid Obesity Malnutrition related to morbid obesity No Intervention/Recommendation Recommendations by RD Increase Calorie Intake Protein supplementation Comments 1. Recommend Boost Breeze TID with clear liquid diet to promote nutritional intake. Encourage oral intake. 2. Advance as tolerated to renal diet with Novosource Renal BID. Expected Outcomes/Goals Expected Outcomes/Goals Have pt meet at least 75% of estimated nutritional needs with acceptable tolerance. Physician Parameters for PEM Normal Weight % 90% - 110% (Normal) Body Mass Index (BMI) 18 - 24 (Mild) Serum Albumin (g/dl) 3.5 - 5.0 (Normal)
[2016-12-18 16:26] LABS: HEMATOCRIT 27.1 % (39.0-49.0); HEMOGLOBIN 9.3 gm/dL (13.2-17.3)
[2016-12-19] MEDS: HYDROmorphone 1 mg/mL 1mL Syr IVP PRN ×7 (02:07→21:59)
[2016-12-19] MEDS: Sodium Chloride 0.9% 1,000 ML IV SCH (06:54)
[2016-12-19] MEDS: INSULIN ASPART SLIDING SCALE 100 UNITS/ML UNIT SUBQ SCH ×4 (06:56→22:29)
[2016-12-19] MEDS: Lactobacillus Rhamnosus 10 Billion CFU Capsule PO SCH (09:09)
[2016-12-19] MEDS: Pantoprazole 40 mg EC Tab PO SCH (09:09)
--- NOTE | 2016-12-19 09:09 | General Progress Note ---
Subjective - Review of Systems Subjective: Patient was seen and examined. No new complaints. Patient continues to ask for pain medication. No active bleeding reported. H&H is stable.CMP were today 's lab. Objective - Results Result Diagrams: 12/18/16 16:18 12/18/16 07:46 Recent Labs: Laboratory Last Values WBC 6.6 Th/cmm (4.8-10.8) D 12/18/16 07:46 RBC 2.98 Mil/cmm (4.30-5.70) L 12/18/16 07:46 Hgb 9.3 gm/dL (13.2-17.3) L 12/18/16 16:18 Hct 27.1 % (39.0-49.0) L 12/18/16 16:18 MCV 89.1 fl (80-99) 12/18/16 07:46 MCH 29.8 pg (26.0-30.0) 12/18/16 07:46 MCHC Differential 33.5 pg (28.0-36.0) 12/18/16 07:46 RDW 15.5 % (11.5-20.0) 12/18/16 07:46 Plt Count 137 Th/cmm (150-400) L D 12/18/16 07:46 MPV 9.4 fl 12/18/16 07:46 Neutrophils % 50.6 % (40.0-80.0) 12/18/16 07:46 Band Neutrophils % 0 % (0-10) 12/14/16 06:36 Lymphocytes % 38.3 % (20.0-50.0) 12/18/16 07:46 Monocytes % 4.6 % (2.0-10.0) 12/18/16 07:46 Eosinophils % 5.3 % (0.0-5.0) H 12/18/16 07:46 Basophils % 1.2 % (0.0-2.0) 12/18/16 07:46 Neutrophils (Manual) 41 % (40-80) 12/15/16 05:49 Lymphocytes 42 % (20-50) 12/15/16 05:49 Monocytes 9 % (2-10) 12/15/16 05:49 Eosinophils 7 % (0-5) H 12/15/16 05:49 Basophils 1 % (0-3) 12/15/16 05:49 Platelet Estimate DECREASED PLATELETS (NORMAL) 12/15/16 05:49 Platelet Morphology NORMAL (NORMAL) 12/15/16 05:49 Anisocytosis 1+ 12/15/16 05:49 RBC Morph Micro Appear ABNORMAL (NORMAL) 12/15/16 05:49 PT 10.7 SECONDS (9.5-11.5) 12/16/16 09:05 INR 1.03 (0.5-1.4) 12/16/16 09:05 PTT (Actin FS) 27.1 SECONDS (26.0-38.0) 12/16/16 09:05 Sodium 137 mEq/L (136-145) 12/18/16 07:46 Potassium 3.6 mEq/L (3.5-5.1) 12/18/16 07:46 Chloride 105 mEq/L (98-107) 12/18/16 07:46 Carbon Dioxide 18.9 mEq/L (21.0-31.0) L 12/18/16 07:46 Anion Gap 16.7 (7.0-16.0) H 12/18/16 07:46 BUN 43 mg/dL (7-25) H 12/18/16 07:46 Creatinine 7.1 mg/dL (0.7-1.3) H* 12/18/16 07:46 Est GFR ( Amer) 11.6 ml/min (>90) 12/18/16 07:46 Est GFR (Non-Af Amer) 9.6 ml/min 12/18/16 07:46 BUN/Creatinine Ratio 6.1 12/18/16 07:46 Glucose 92 mg/dL (70-105) 12/18/16 07:46 POC Glucose 79 MG/DL (70 - 105) 12/19/16 05:59 Hemoglobin A1c % 5.0 % (4.0-6.0) 12/10/16 21:19 Calcium 8.8 mg/dL (8.6-10.3) 12/18/16 07:46 Iron 143 ug/dL (38-169) 12/16/16 09:05 TIBC 168 ug/dL (250-450) L 12/16/16 09:05 Iron Saturation 85 % (15-55) H 12/16/16 09:05 Unsaturated IBC 25 ug/dL (111-343) L 12/16/16 09:05 Ferritin 1578 ng/mL (30-400) H 12/16/16 09:05 Total Bilirubin 2.0 mg/dL (0.3-1.0) H 12/18/16 07:46 Direct Bilirubin 5.13 mg/dL (0.0-0.2) H 12/12/16 06:30 AST 40 U/L (13-39) H 12/18/16 07:46 ALT 68 U/L (7-52) H 12/18/16 07:46 Alkaline Phosphatase 253 U/L (34-104) H 12/18/16 07:46 Troponin I < 0.01 ng/mL (0.01-0.05) L 12/10/16 21:19 Total Protein 5.5 gm/dL (6.0-8.3) L 12/18/16 07:46 Albumin 3.2 gm/dL (4.2-5.5) L 12/18/16 07:46 Globulin 2.3 gm/dL 12/18/16 07:46 Albumin/Globulin Ratio 1.4 (1.0-1.8) 12/18/16 07:46 Triglycerides 46 mg/dL (<150) 12/10/16 21:19 Cholesterol 122 mg/dL (<200) 12/10/16 21:19 LDL Cholesterol Direct 30 mg/dL (75-193) L 12/10/16 21:19 HDL Cholesterol 71 mg/dL (23-92) 12/10/16 21:19 Amylase 107 U/L (29-103) H 12/15/16 05:49 Lipase 48 U/L (11-82) 12/15/16 05:49 TSH 6.49 uIU/ml (0.34-5.60) H 12/10/16 21:19 Urine Source CLEAN C 12/11/16 07:40 Urine Color YELLOW 12/11/16 07:40 Urine Clarity H (CLEAR) 12/11/16 07:40 Urine pH 7.0 (4.6 - 8.0) 12/11/16 07:40 Ur Specific Taylor 1.010 (1.005-1.030) 12/11/16 07:40 Urine Protein 100 mg/dL (NEGATIVE) H 12/11/16 07:40 Urine Glucose (UA) 250 mg/dL (NEGATIVE) H 12/11/16 07:40 Urine Ketones NEGATIVE mg/dL (NEGATIVE) 12/11/16 07:40 Urine Blood SMALL (NEGATIVE) H 12/11/16 07:40 Urine Nitrate NEGATIVE (NEGATIVE) 12/11/16 07:40 Urine Bilirubin NEGATIVE (NEGATIVE) 12/11/16 07:40 Urine Urobilinogen 0.2 E.U./dL (0.2 - 1.0) 12/11/16 07:40 Ur Leukocyte Esterase NEGATIVE (NEGATIVE) 12/11/16 07:40 Urine RBC 0-2 /hpf (0-5) H 12/11/16 07:40 Urine WBC 0-2 /hpf (0-5) 12/11/16 07:40 Ur Epithelial Cells OCCASIONAL /lpf (FEW) 12/11/16 07:40 Urine Bacteria NONE SEEN /hpf (NONE SEEN) 12/11/16 07:40 Levetiracetam 42.0 ug/mL (10.0-40.0) H 12/10/16 21:19 Hepatitis A IgM Ab Negative (Negative) 12/16/16 09:05 Hep Bs Antigen Negative (Negative) 12/16/16 09:05 Hep B Core IgM Ab Negative (Negative) 12/16/16 09:05 Hepatitis C Antibody <0.1 s/co ratio (0.0-0.9) 12/16/16 09:05 Blood Type AB POSITIVE 12/15/16 17:09 Antibody Screen NEGATIVE 12/15/16 17:09 - Physical Exam Vitals and I&O: Vital Signs Temp 97.3 F 12/19/16 08:00 Pulse 96 12/19/16 08:00 Resp 18 12/19/16 08:00 BP 103/56 12/19/16 08:00 Pulse Ox 100 12/19/16 08:00 Intake & Output 12/18/16 12/19/16 12/19/16 18:59 06:59 18:59 Intake Total 5750.548 4759.667 Balance 3785.568 4412.667 Weight (lbs) 43.998 kg 43.772 kg Intake: Intake, IV Amount 786.667 976.667 Sodium Chloride 0.9% 1, 786.667 976.667 000 ml @ 50 mls/hr IV . Q20H [facility] Rx#:[id number] Oral 500 150 Other: # Voids 3 2 # Bowel Movements 4 2 Stool Characteristics Soft Soft Active Medications: Current Medications Epoetin Marv (Epogen) 10,000 units SUBQ MWF [facility] Stop: 02/17/17 08:59 Hydromorphone HCl (Dilaudid) 1 mg IVP Q4HR PRN PRN Reason: Pain (Moderate) Stop: 02/15/17 01:20 Last Admin: 12/19/16 06:52 Dose: 1 mg Sodium Chloride (Nacl 0.9%) 1,000 mls @ 50 mls/hr IV .Q20H [facility] Stop: 02/13/17 16:17 Last Admin: 12/19/16 06:54 Dose: 50 mls/hr Pantoprazole Sodium 80 mg/ (Sodium Chloride) 100 mls @ 10 mls/hr IV Q10H [facility] Stop: 02/14/17 18:14 Last Infusion: 12/17/16 10:59 Dose: Infused Ibuprofen (Advil) 600 mg PO Q6HR PRN PRN Reason: Severe Pain Stop: 02/12/17 21:54 Last Admin: 12/17/16 00:43 Dose: 600 mg Insulin Aspart (Novolog Insulin Sliding Scale) 0 units SUBQ ACHS [facility] PRN Reason: Protocol Stop: 02/09/17 07:29 Last Admin: 12/19/16 06:56 Dose: Not Given Lactobacillus Rhamnosus (Culturelle) 1 each PO DAILY [facility] Stop: 02/15/17 08:59 Last Admin: 12/18/16 11:46 Dose: Not Given Levetiracetam (Keppra) 500 mg PO BID [facility] Stop: 02/09/17 08:59 Last Admin: 12/18/16 16:57 Dose: 500 mg Miscellaneous (Zosyn Iv Per Pharmacy) 1 ea PRN PRN PRN Reason: PROTOCOL Stop: 02/09/17 04:59 Miscellaneous (Probiotic Screen) 1 ea PRN PRN PRN Reason: PROTOCOL Stop: 02/14/17 13:13 Ondansetron HCl (Zofran) 4 mg IV Q6HR PRN PRN Reason: Nausea / Vomiting Stop: 02/09/17 01:22 Pantoprazole Sodium (Protonix) 40 mg PO BID [facility] Stop: 02/13/17 16:59 Last Admin: 12/18/16 16:57 Dose: 40 mg Sitagliptin Phosphate (Januvia) 25 mg PO DAILY [facility] Stop: 02/10/17 08:59 Last Admin: 12/18/16 09:34 Dose: 25 mg General: Alert, Oriented x3, Mild distress HEENT: Atraumatic Neck: Supple Cardiovascular: Regular rate, Normal S1, Normal S2 Lungs: Clear to auscultation Abdomen: Soft, Tender, Distended Extremities: Other (AV graft with BRUIT+) - Procedures Procedures: Procedures Procedure Code Date ABDOMEN SURGERY PROCEDURE 40201 10/21/16 DESTRUCTION OF STOMACH, PYLORUS, ENDO [id number] 12/11/16 DILATION OF COMMON BILE DUCT, ENDO [id number] 12/11/16 EGD BIOPSY SINGLE/MULTIPLE 43454 02/20/16 ENDO CHOLANGIOPANCREATOGRAPH 03308 12/11/16 EXCISION OF DUODENUM, ENDO, DIAGN [id number] 02/20/16 EXCISION OF STOMACH, PYLORUS, ENDO, DIAGN [id number] 02/20/16 INTRODUCTION OF OTHER THERAPEUTIC SUBSTANCE INTO UP GI, ENDO [id number] 12/11/16 INTRODUCTION OF SERUM/TOX/VACCINE INTO MUSCLE, PERC APPROACH [id number] 11/05/16 PERFORMANCE OF URINARY FILTRATION, MULTIPLE [id number] 10/21/16 PERFORMANCE OF URINARY FILTRATION, SINGLE [id number] 11/05/16 RELEASE GREATER OMENTUM, OPEN APPROACH [id number] 10/21/16 RELEASE LIVER, OPEN APPROACH [id number] 10/21/16 REMOVAL OF GALLBLADDER 20305 10/21/16 RESECTION OF GALLBLADDER, OPEN APPROACH [id number] 10/21/16 TRANSFUSE NONAUT RED BLOOD CELLS IN PERIPH VEIN, PERC [id number] 11/05/16 UPPR GI SCOPE W/SUBMUC INJ 44620 12/11/16 Assessment/Plan - Problem List Patient Problems: All Active Problems NOT FEELING GOOD WITH NAUSEA (Acute) The administrative codes within the [employer] content you are accessing may have as of 02/06/2016. Please contact your IT Dept/Help Desk and request the latest Regulatory release be installed. IT Dept/Help Desk- Please refer to our FAQ page ([email or web address]) or contact [employer] Customer Support at (Acute ~02/20/16) WEAKNESS WITH RIGHT LOWER QUAD PAIN (Acute) WEAKNESS WITH RIGHT LOWER QUAD PAIN (Acute) - Assessment Assessment: Obstructive jaundice S/p ERCP. end-stage renal disease on hemodialysis. Diabetes mellitus Seizure disorder Acute upper GI bleed after ERCP bleeding from post sphincterotomy site as per GI patient is still oozing. Acute hemorrhagic anemia status post blood transfusion Questionable chronic liver disease and hepatitis panel is negative. Diffuse abdominal pain Status post exploratory laparotomy for cholelithiasis with cholecystectomy a few weeks ago Bilateral hearing loss. - Plan Plan: Advance diet as tolerated. Discharge planning as per vein access technician. Obtain comprehensive metabolic panel. Hemodialysis as planned by wildlife and game protector.. Monitor blood sugar blood pressure. General nursing care. Symptoms management. Follow-up lab. Seizure precautions. Seizure medications. Chronic management of his medical illnesses. Follow-up consultants recommendation. Care plan reviewed and discussed with staff. Nutritional Asmnt/Malnutr-PDOC - Dietary Evaluation Malnutrition Findings (Please click <Entered> for more info): Nutritional Asmnt/Malnutrition Start: 12/12/16 14: 00 Text: Status: Complete Freq: Document 12/12/16 14:00 [facility] (Rec: 12/12/16 14:10 [facility] [id number]) Nutritional Asmnt/Malnutrition Patient General Information Nutritional Screening High Risk Screening Diagnosis Common bile duct dilation Pertinent Medical Hx/Surgical Hx HTN, DM, ESRD on dialysis, seizures, cholecystectomy Subjective Information Pt is a 31-year-old male admitted with chief complaint of right sided abdominal pain. RD attempted visit twice but pt was sound asleep on both occasions. Pt appears to have a small body frame but no signs of muscle or fat depletion. IBW calculated with consideration of small body frame. Per ER report, pt has had vomiting and diarrhea for several days; no current reports of GI distress. Current Diet Order/ Nutrition Support Clear liquid Patient / S.O Can Pertinent Medications D5-0.45 ns, Dilaudid, Piperacillin, Januvia Pertinent Labs (12/10) Na 133L, Glucose 185H, LDL Cholesterol 30L. (12/12) Na 131L, K 5.5H, BUN 59H, Creatinine 8.4H, Total Bilirubin 3.8H, AST 330H, ALT 340H, Alkaline Phosphatase 522H, Amylase 127H Nutritional Hx/Data Height 1.57 m Height (Calculated Centimeters) 157.5 Current Weight (lbs) 47.174 kg Weight (Calculated Kilograms) 47.2 Weight (Calculated Grams) 53087.6 Usual body Weight (lbs) 104 % Usual Body Weight 100 [place] Body Weight 106 % [place] Body Weight 98 Recent Weight Change No Weight Status Approriate GI Symptoms GI Symptoms Vomitting Diarrhea Food Allergies No Skin Integrity/Comment: Rohit 21. Skin intact. Estimated Nutritional Goals BEE in Kcals: Using Current wt Calories/Kcals/Kg Based on current wt 47.2 kg with consideration of dialysis Kcals Calculated 2714-1104 kcals/day (30-35 kcals/kg) Protein: Using Current wt Protein g/kg: Based on current wt 47.2 kg with consideration of dialysis Protein Calculated 57-71 gm/day (1.2-1.5 gm/kg) Fluid: ml Per MD/DO Nutritional Problem 1. Problem Problem Inadequate energy/protein intake related to Etiology altered GI function with vomiting and diarrhea as evidenced by Signs/Symptoms: need for clear liquid diet. Malnutrition Alert Protein-Calorie Malnutrition N/A Malnutrition Related to Morbid Obesity Malnutrition related to morbid obesity No Intervention/Recommendation Recommendations by RD Increase Calorie Intake Protein supplementation Comments 1. Recommend Boost Breeze TID with clear liquid diet to promote nutritional intake. Encourage oral intake. 2. Advance as tolerated to renal diet with Novosource Renal BID. Expected Outcomes/Goals Expected Outcomes/Goals Have pt meet at least 75% of estimated nutritional needs with acceptable tolerance. Physician Parameters for PEM Normal Weight % 90% - 110% (Normal) Body Mass Index (BMI) 18 - 24 (Mild) Serum Albumin (g/dl) 3.5 - 5.0 (Normal)
[2016-12-19] MEDS: Epoetin Alfa 20000 Units/mL Vial SUBQ SCH (09:17)
[2016-12-19 10:35] LABS: % BASOPHILS 1.3 % (0.0-2.0); % EOSINOPHILS 6.6 % (0.0-5.0); % LYMPHOCYTES 32.5 % (20.0-50.0); % NEUTROPHILS 55.6 % (40.0-80.0); MEAN CELL VOLUME 87.4 fl (80-99); MEAN CORPUSCULAR HEMOGLOBIN 29.8 pg (26.0-30.0); MEAN CORPUSCULAR HGB CONC 34.1 pg (28.0-36.0); MEAN PLATELET VOLUME 7.6 fl; NEUTROPHILE ABSOLUTE 2.6 Th/cmm (1.8-8.0); PLATELET COUNT 145 Th/cmm (150-400); RED CELL DISTRIBUTION WIDTH 15.2 % (11.5-20.0); WHITE BLOOD COUNT 4.8 Th/cmm (4.8-10.8)
[2016-12-19 10:56] LABS: HEMATOCRIT 19.2 % (39.0-49.0)
[2016-12-19 11:14] LABS: ALB/GLOB RATIO 1.6 (1.0-1.8); ANION GAP 12.3 (7.0-16.0); BILIRUBIN,TOTAL 1.7 mg/dL (0.3-1.0); BUN/CREATININE RATIO 7.1; CALCIUM SERUM 8.6 mg/dL (8.6-10.3); CARBON DIOXIDE 19.8 mEq/L (21.0-31.0); POTASSIUM SERUM 3.1 mEq/L (3.5-5.1)
[2016-12-19 11:18] LABS: CREATININE - SERUM 5.8 mg/dL (0.7-1.3)
[2016-12-19 11:23] LABS: % BASOPHILS 1.1 % (0.0-2.0); % EOSINOPHILS 6.2 % (0.0-5.0); % LYMPHOCYTES 28.5 % (20.0-50.0); % MONOCYTES 3.6 % (2.0-10.0); % NEUTROPHILS 60.6 % (40.0-80.0); MEAN CELL VOLUME 86.4 fl (80-99); MEAN CORPUSCULAR HGB CONC 34.7 pg (28.0-36.0); MEAN PLATELET VOLUME 7.8 fl; NEUTROPHILE ABSOLUTE 2.8 Th/cmm (1.8-8.0); PLATELET COUNT 150 Th/cmm (150-400); RED BLOOD COUNT 2.25 Mil/cmm (4.30-5.70); RED CELL DISTRIBUTION WIDTH 14.5 % (11.5-20.0); WHITE BLOOD COUNT 4.8 Th/cmm (4.8-10.8)
[2016-12-19 11:25] LABS: HEMATOCRIT 19.5 % (39.0-49.0); HEMOGLOBIN 6.7 gm/dL (13.2-17.3)
[2016-12-19 11:30] LABS: INR 1.11 (0.5-1.4); PROTHROMBIN TIME (TEST) 11.6 SECONDS (9.5-11.5)
[2016-12-19 13:10] LABS: CERULOPLASMIN 20.5 mg/dL (16.0-31.0)
[2016-12-19] MEDS: SODIUM CHLORIDE 0.9% IV SCH (14:49)
[2016-12-19] MEDS: ESOMEPRAZOLE IV SCH (14:49)
[2016-12-20] MEDS: SODIUM CHLORIDE 0.9% IV SCH ×2 (00:03→09:36)
[2016-12-20] MEDS: ESOMEPRAZOLE IV SCH ×2 (00:03→09:36)
[2016-12-20] MEDS: HYDROmorphone 1 mg/mL 1mL Syr IVP PRN ×4 (01:05→22:36)
[2016-12-20] MEDS: Sodium Chloride 0.9% 1,000 ML IV SCH (05:46)
[2016-12-20] MEDS: INSULIN ASPART SLIDING SCALE 100 UNITS/ML UNIT SUBQ SCH ×4 (06:33→21:00)
[2016-12-20] MEDS: Lactobacillus Rhamnosus 10 Billion CFU Capsule PO SCH (08:25)
--- NOTE | 2016-12-20 08:57 | General Progress Note ---
Subjective - Review of Systems Subjective: Patient was seen and examined. Patient states my pain is better. Still has a little blood in his stool. No chest pain, shortness of breath, palpitation, dizziness, nausea, vomiting, headache, fever, chills. Objective - Results Result Diagrams: 12/19/16 11:18 12/19/16 10:30 Recent Labs: Laboratory Last Values WBC 4.8 Th/cmm (4.8-10.8) 12/19/16 11:18 RBC 2.25 Mil/cmm (4.30-5.70) L 12/19/16 11:18 Hgb 6.7 gm/dL (13.2-17.3) L* 12/19/16 11:18 Hct 19.5 % (39.0-49.0) L* 12/19/16 11:18 MCV 86.4 fl (80-99) 12/19/16 11:18 MCH 30.0 pg (26.0-30.0) 12/19/16 11:18 MCHC Differential 34.7 pg (28.0-36.0) 12/19/16 11:18 RDW 14.5 % (11.5-20.0) 12/19/16 11:18 Plt Count 150 Th/cmm (150-400) 12/19/16 11:18 MPV 7.8 fl 12/19/16 11:18 Neutrophils % 60.6 % (40.0-80.0) 12/19/16 11:18 Band Neutrophils % 0 % (0-10) 12/14/16 06:36 Lymphocytes % 28.5 % (20.0-50.0) 12/19/16 11:18 Monocytes % 3.6 % (2.0-10.0) 12/19/16 11:18 Eosinophils % 6.2 % (0.0-5.0) H 12/19/16 11:18 Basophils % 1.1 % (0.0-2.0) 12/19/16 11:18 Neutrophils (Manual) 41 % (40-80) 12/15/16 05:49 Lymphocytes 42 % (20-50) 12/15/16 05:49 Monocytes 9 % (2-10) 12/15/16 05:49 Eosinophils 7 % (0-5) H 12/15/16 05:49 Basophils 1 % (0-3) 12/15/16 05:49 Platelet Estimate DECREASED PLATELETS (NORMAL) 12/15/16 05:49 Platelet Morphology NORMAL (NORMAL) 12/15/16 05:49 Anisocytosis 1+ 12/15/16 05:49 RBC Morph Micro Appear ABNORMAL (NORMAL) 12/15/16 05:49 PT 11.6 SECONDS (9.5-11.5) H 12/19/16 10:30 INR 1.11 (0.5-1.4) 12/19/16 10:30 PTT (Actin FS) 27.1 SECONDS (26.0-38.0) 12/16/16 09:05 Sodium 134 mEq/L (136-145) L 12/19/16 10:30 Potassium 3.1 mEq/L (3.5-5.1) L 12/19/16 10:30 Chloride 105 mEq/L (98-107) 12/19/16 10:30 Carbon Dioxide 19.8 mEq/L (21.0-31.0) L 12/19/16 10:30 Anion Gap 12.3 (7.0-16.0) 12/19/16 10:30 BUN 41 mg/dL (7-25) H 12/19/16 10:30 Creatinine 5.8 mg/dL (0.7-1.3) H* 12/19/16 10:30 Est GFR ( Amer) 14.6 ml/min (>90) 12/19/16 10:30 Est GFR (Non-Af Amer) 12.1 ml/min 12/19/16 10:30 BUN/Creatinine Ratio 7.1 12/19/16 10:30 Glucose 122 mg/dL (70-105) H 12/19/16 10:30 POC Glucose 109 MG/DL (70 - 105) H 12/20/16 05:52 Hemoglobin A1c % 5.0 % (4.0-6.0) 12/10/16 21:19 Calcium 8.6 mg/dL (8.6-10.3) 12/19/16 10:30 Iron 143 ug/dL (38-169) 12/16/16 09:05 TIBC 168 ug/dL (250-450) L 12/16/16 09:05 Iron Saturation 85 % (15-55) H 12/16/16 09:05 Unsaturated IBC 25 ug/dL (111-343) L 12/16/16 09:05 Ferritin 1578 ng/mL (30-400) H 12/16/16 09:05 Total Bilirubin 1.7 mg/dL (0.3-1.0) H 12/19/16 10:30 Direct Bilirubin 5.13 mg/dL (0.0-0.2) H 12/12/16 06:30 AST 38 U/L (13-39) 12/19/16 10:30 ALT 60 U/L (7-52) H 12/19/16 10:30 Alkaline Phosphatase 240 U/L (34-104) H 12/19/16 10:30 Troponin I < 0.01 ng/mL (0.01-0.05) L 12/10/16 21:19 Total Protein 5.1 gm/dL (6.0-8.3) L 12/19/16 10:30 Albumin 3.1 gm/dL (4.2-5.5) L 12/19/16 10:30 Globulin 2.0 gm/dL 12/19/16 10:30 Albumin/Globulin Ratio 1.6 (1.0-1.8) 12/19/16 10:30 Ceruloplasmin 20.5 mg/dL (16.0-31.0) 12/16/16 09:05 Triglycerides 46 mg/dL (<150) 12/10/16 21:19 Cholesterol 122 mg/dL (<200) 12/10/16 21:19 LDL Cholesterol Direct 30 mg/dL (75-193) L 12/10/16 21:19 HDL Cholesterol 71 mg/dL (23-92) 12/10/16 21:19 Amylase 107 U/L (29-103) H 12/15/16 05:49 Lipase 48 U/L (11-82) 12/15/16 05:49 TSH 6.49 uIU/ml (0.34-5.60) H 12/10/16 21:19 Urine Source CLEAN C 12/11/16 07:40 Urine Color YELLOW 12/11/16 07:40 Urine Clarity H (CLEAR) 12/11/16 07:40 Urine pH 7.0 (4.6 - 8.0) 12/11/16 07:40 Ur Specific [place] 1.010 (1.005-1.030) 12/11/16 07:40 Urine Protein 100 mg/dL (NEGATIVE) H 12/11/16 07:40 Urine Glucose (UA) 250 mg/dL (NEGATIVE) H 12/11/16 07:40 Urine Ketones NEGATIVE mg/dL (NEGATIVE) 12/11/16 07:40 Urine Blood SMALL (NEGATIVE) H 12/11/16 07:40 Urine Nitrate NEGATIVE (NEGATIVE) 12/11/16 07:40 Urine Bilirubin NEGATIVE (NEGATIVE) 12/11/16 07:40 Urine Urobilinogen 0.2 E.U./dL (0.2 - 1.0) 12/11/16 07:40 Ur Leukocyte Esterase NEGATIVE (NEGATIVE) 12/11/16 07:40 Urine RBC 0-2 /hpf (0-5) H 12/11/16 07:40 Urine WBC 0-2 /hpf (0-5) 12/11/16 07:40 Ur Epithelial Cells OCCASIONAL /lpf (FEW) 12/11/16 07:40 Urine Bacteria NONE SEEN /hpf (NONE SEEN) 12/11/16 07:40 Levetiracetam 42.0 ug/mL (10.0-40.0) H 12/10/16 21:19 Anti-Mitochondrial Ab 5.5 Units (0.0-20.0) 12/16/16 09:05 Hepatitis A IgM Ab Negative (Negative) 12/16/16 09:05 Hep Bs Antigen Negative (Negative) 12/16/16 09:05 Hep B Core IgM Ab Negative (Negative) 12/16/16 09:05 Hepatitis C Antibody <0.1 s/co ratio (0.0-0.9) 12/16/16 09:05 Blood Type AB POSITIVE 12/19/16 11:18 Antibody Screen NEGATIVE 12/19/16 11:18 - Physical Exam Vitals and I&O: Vital Signs Temp 98.5 F 12/20/16 08:31 Pulse 63 12/20/16 08:31 Resp 18 12/20/16 08:31 BP 132/71 12/20/16 08:31 Pulse Ox 94 12/20/16 08:31 Intake & Output 12/19/16 12/20/16 12/20/16 18:59 06:59 18:59 Intake Total 20 1092.333 Balance 20 1092.333 Weight (lbs) 43.545 kg Intake: Intake, IV Amount 1092.333 MISC Injection 2 vial In 92.333 Sodium Chloride 0.9% 100 ml @ 10 mls/hr IV Q10H [facility] Rx#:[id number] Sodium Chloride 0.9% 1, 1000 000 ml @ 50 mls/hr IV . Q20H [facility] Rx#:[id number] Oral 20 Other: # Voids 2 Stool Characteristics Soft Soft Active Medications: Current Medications Epoetin Marv (Epogen) 10,000 units SUBQ MWF [facility] Stop: 02/17/17 08:59 Last Admin: 12/19/16 09:17 Dose: Not Given Sodium Chloride (Nacl 0.9%) 1,000 mls @ 50 mls/hr IV .Q20H [facility] Stop: 02/13/17 16:17 Last Admin: 12/20/16 05:46 Dose: 50 mls/hr Miscellaneous 2 vial/ Sodium (Chloride) 100 mls @ 10 mls/hr IV Q10H [facility] Stop: 02/17/17 12:59 Last Admin: 12/20/16 00:03 Dose: 10 mls/hr Ibuprofen (Motrin) 600 mg PO Q6HR PRN PRN Reason: SEVERE PAIN Stop: 02/17/17 14:21 Insulin Aspart (Novolog Insulin Sliding Scale) 0 units SUBQ ACHS RAD[facility] PRN Reason: Protocol Stop: 02/09/17 07:29 Last Admin: 12/20/16 06:33 Dose: Not Given Lactobacillus Rhamnosus (Culturelle) 1 each PO DAILY [facility] Stop: 02/15/17 08:59 Last Admin: 12/20/16 08:25 Dose: Not Given Levetiracetam (Keppra) 500 mg PO BID [facility] Stop: 02/09/17 08:59 Last Admin: 12/20/16 08:25 Dose: Not Given Miscellaneous (Zosyn Iv Per Pharmacy) 1 ea PRN PRN PRN Reason: PROTOCOL Stop: 02/09/17 04:59 Miscellaneous (Probiotic Screen) 1 ea PRN PRN PRN Reason: PROTOCOL Stop: 02/14/17 13:13 Ondansetron HCl (Zofran) 4 mg IV Q6HR PRN PRN Reason: Nausea / Vomiting Stop: 02/09/17 01:22 Sitagliptin Phosphate (Januvia) 25 mg PO DAILY [facility] Stop: 02/10/17 08:59 Last Admin: 12/20/16 08:25 Dose: Not Given General: Alert, Oriented x3, Mild distress HEENT: Atraumatic Neck: Supple Cardiovascular: Regular rate, Normal S1, Normal S2 Lungs: Clear to auscultation Abdomen: Soft, Tender, Distended Extremities: Other (AV graft with BRUIT+) - Procedures Procedures: Procedures Procedure Code Date ABDOMEN SURGERY PROCEDURE 86661 10/21/16 DESTRUCTION OF STOMACH, PYLORUS, ENDO [id number] 12/11/16 DILATION OF COMMON BILE DUCT, ENDO [id number] 12/11/16 EGD BIOPSY SINGLE/MULTIPLE 99397 02/20/16 ENDO CHOLANGIOPANCREATOGRAPH 12566 12/11/16 EXCISION OF DUODENUM, ENDO, DIAGN [id number] 02/20/16 EXCISION OF STOMACH, PYLORUS, ENDO, DIAGN [id number] 02/20/16 INTRODUCTION OF OTHER THERAPEUTIC SUBSTANCE INTO UP GI, ENDO [id number] 12/11/16 INTRODUCTION OF SERUM/TOX/VACCINE INTO MUSCLE, PERC APPROACH [id number] 11/05/16 PERFORMANCE OF URINARY FILTRATION, MULTIPLE [id number] 10/21/16 PERFORMANCE OF URINARY FILTRATION, SINGLE [id number] 11/05/16 RELEASE GREATER OMENTUM, OPEN APPROACH [id number] 10/21/16 RELEASE LIVER, OPEN APPROACH [id number] 10/21/16 REMOVAL OF GALLBLADDER 59253 10/21/16 RESECTION OF GALLBLADDER, OPEN APPROACH [id number] 10/21/16 TRANSFUSE NONAUT RED BLOOD CELLS IN PERIPH VEIN, PERC 04685V1 11/05/16 UPPR GI SCOPE W/SUBMUC INJ 95192 12/11/16 Assessment/Plan - Problem List Patient Problems: All Active Problems NOT FEELING GOOD WITH NAUSEA (Acute) The administrative codes within the [employer] content you are accessing may have as of 02/06/2016. Please contact your IT Dept/Help Desk and request the latest Regulatory release be installed. IT Dept/Help Desk- Please refer to our FAQ page ([email or web address]) or contact [employer] Customer Support at [email or web address] (Acute ~02/20/16) WEAKNESS WITH RIGHT LOWER QUAD PAIN (Acute) WEAKNESS WITH RIGHT LOWER QUAD PAIN (Acute) - Assessment Assessment: Obstructive jaundice S/p ERCP. end-stage renal disease on hemodialysis. Diabetes mellitus Seizure disorder Acute upper GI bleed after ERCP bleeding from post sphincterotomy site as per GI patient is still oozing. Acute hemorrhagic anemia status post blood transfusion Questionable chronic liver disease and hepatitis panel is negative. Diffuse abdominal pain Status post exploratory laparotomy for cholelithiasis with cholecystectomy a few weeks ago Bilateral hearing loss. - Plan Plan: Advance diet as tolerated. Discharge planning as per concrete products dispatcher. Obtain comprehensive metabolic panel. Hemodialysis as planned by psychiatric mental health nurse.. Monitor blood sugar blood pressure. General nursing care. Symptoms management. Stat CBC a CMP and make decision about discharge planning. Seizure precautions. Seizure medications. Chronic management of his medical illnesses. Follow-up consultants recommendation. Care plan reviewed and discussed with staff. Nutritional Asmnt/Malnutr-PDOC - Dietary Evaluation Malnutrition Findings (Please click <Entered> for more info): Nutritional Asmnt/Malnutrition Start: 12/12/16 14: 00 Text: Status: Complete Freq: Document 12/12/16 14:00 [facility] (Rec: 12/12/16 14:10 [facility] [id number]) Nutritional Asmnt/Malnutrition Patient General Information Nutritional Screening High Risk Screening Diagnosis Common bile duct dilation Pertinent Medical Hx/Surgical Hx HTN, DM, ESRD on dialysis, seizures, cholecystectomy Subjective Information Pt is a 31-year-old male admitted with chief complaint of right sided abdominal pain. RD attempted visit twice but pt was sound asleep on both occasions. Pt appears to have a small body frame but no signs of muscle or fat depletion. IBW calculated with consideration of small body frame. Per ER report, pt has had vomiting and diarrhea for several days; no current reports of GI distress. Current Diet Order/ Nutrition Support Clear liquid Patient / S.O Can Pertinent Medications D5-0.45 ns, Dilaudid, Piperacillin, Januvia Pertinent Labs (12/10) Na 133L, Glucose 185H, LDL Cholesterol 30L. (12/12) Na 131L, K 5.5H, BUN 59H, Creatinine 8.4H, Total Bilirubin 3.8H, AST 330H, ALT 340H, Alkaline Phosphatase 522H, Amylase 127H Nutritional Hx/Data Height 1.57 m Height (Calculated Centimeters) 157.5 Current Weight (lbs) 47.174 kg Weight (Calculated Kilograms) 47.2 Weight (Calculated Grams) 39836.6 Usual body Weight (lbs) 104 % Usual Body Weight 100 [place] Body Weight 106 % [place] Body Weight 98 Recent Weight Change No Weight Status Approriate GI Symptoms GI Symptoms Vomitting Diarrhea Food Allergies No Skin Integrity/Comment: Rohit 21. Skin intact. Estimated Nutritional Goals BEE in Kcals: Using Current wt Calories/Kcals/Kg Based on current wt 47.2 kg with consideration of dialysis Kcals Calculated 4493-1355 kcals/day (30-35 kcals/kg) Protein: Using Current wt Protein g/kg: Based on current wt 47.2 kg with consideration of dialysis Protein Calculated 57-71 gm/day (1.2-1.5 gm/kg) Fluid: ml Per MD/DO Nutritional Problem 1. Problem Problem Inadequate energy/protein intake related to Etiology altered GI function with vomiting and diarrhea as evidenced by Signs/Symptoms: need for clear liquid diet. Malnutrition Alert Protein-Calorie Malnutrition N/A Malnutrition Related to Morbid Obesity Malnutrition related to morbid obesity No Intervention/Recommendation Recommendations by RD Increase Calorie Intake Protein supplementation Comments 1. Recommend Boost Breeze TID with clear liquid diet to promote nutritional intake. Encourage oral intake. 2. Advance as tolerated to renal diet with Novosource Renal BID. Expected Outcomes/Goals Expected Outcomes/Goals Have pt meet at least 75% of estimated nutritional needs with acceptable tolerance. Physician Parameters for PEM Normal Weight % 90% - 110% (Normal) Body Mass Index (BMI) 18 - 24 (Mild) Serum Albumin (g/dl) 3.5 - 5.0 (Normal)
[2016-12-20 09:19] LABS: % BASOPHILS 1.1 % (0.0-2.0); % EOSINOPHILS 6.2 % (0.0-5.0); % LYMPHOCYTES 28.4 % (20.0-50.0); % MONOCYTES 7.2 % (2.0-10.0); % NEUTROPHILS 57.1 % (40.0-80.0); MEAN CELL VOLUME 89.6 fl (80-99); MEAN CORPUSCULAR HEMOGLOBIN 30.2 pg (26.0-30.0); MEAN CORPUSCULAR HGB CONC 33.7 pg (28.0-36.0); MEAN PLATELET VOLUME 8.4 fl; NEUTROPHILE ABSOLUTE 2.9 Th/cmm (1.8-8.0); PLATELET COUNT 127 Th/cmm (150-400); RED BLOOD COUNT 2.66 Mil/cmm (4.30-5.70); RED CELL DISTRIBUTION WIDTH 14.1 % (11.5-20.0); WHITE BLOOD COUNT 5.1 Th/cmm (4.8-10.8)
[2016-12-20 09:23] LABS: INR 1.1 (0.5-1.4); PROTHROMBIN TIME (TEST) 11.5 SECONDS (9.5-11.5)
[2016-12-20 09:31] LABS: HEMATOCRIT 23.8 % (39.0-49.0)
[2016-12-20 09:47] LABS: ALB/GLOB RATIO 1.4 (1.0-1.8); ANION GAP 11.7 (7.0-16.0); BILIRUBIN,TOTAL 1.7 mg/dL (0.3-1.0); BUN/CREATININE RATIO 5.5; CALCIUM SERUM 8.5 mg/dL (8.6-10.3); POTASSIUM SERUM 3.7 mEq/L (3.5-5.1)
[2016-12-20 10:03] LABS: CREATININE - SERUM 5.6 mg/dL (0.7-1.3)
[2016-12-20] MEDS ORDERED: Meperidine 25 mg/mL 1mL Syr IVP PRN (14:09)
[2016-12-20] MEDS ORDERED: Lactated Ringer 1,000 ML IV SCH (14:15)
--- NOTE | 2016-12-20 14:34 | Operative Report ---
DATE OF SURGERY: 12/20/2016 PROCEDURE: Esophagogastroduodenoscopy with submucosal injection and bipolar electrocautery. PREPROCEDURE DIAGNOSIS: Persistent upper gastrointestinal bleed. POSTPROCEDURE DIAGNOSES: 1. Active oozing from the sphincterotomy site at major ampulla. 2. Status post epinephrine injection followed by bipolar electrocautery with successful hemostasis. INDICATION: A 31-year-old male with history of end-stage renal disease, hemodialysis dependent and failed renal transplantation. He had abnormal liver enzymes and there was a suspicion for biliary obstruction. The patient underwent an ERCP with sphincterotomy and stent placement and clearance of common bile duct sludge. He had post-sphincterotomy bleeding that was initially controlled during time of ERCP. A repeat endoscopy was done a few days later with control of bleeding. The patient continues to ooze and require blood transfusions. A second upper endoscopy is planned today to achieve hemostasis. CONSENT: Informed consent was obtained from the patient and his mother prior to the procedure after explaining risks, benefits and alternatives including but not limited to infection, bleeding, perforation, and . SEDATION: Monitored anesthesia care per Dr. Roman. DESCRIPTION OF PROCEDURE AND FINDINGS: The procedure took place as an inpatient in the operating room of [facility]. The patient was kept in left lateral decubitus position. Adequate sedation achieved by Dr. Roman. An Olympus therapeutic side-viewing duodenoscope was advanced through the patient's mouth and into the esophagus. It was advanced via the stomach and into the duodenum up to second portion. At the major ampulla, there was evidence of previous sphincterotomy with active oozing identified. There is a moderate sized blood clot here that was lavaged to clear. Active oozing was identified at the 1 o'clock position relative to the sphincterotomy site. Using a sclerotherapy needle, a total of 5 ml of 1:10,000 mix epinephrine were injected with prompt hemostasis achieved. This was followed by bipolar electrocautery using a 7-Turkmen Gold probe. A total of about 5 seconds of cautery were used. There was no further bleeding identified from the sphincterotomy site. There was good flow of bile from the sphincterotomy site. No actual perforation was identified. The patient tolerated the procedure well and no complications are anticipated. RECOMMENDATIONS: 1. Monitor H and H. 2. Blood transfusion as needed. 3. Full liquid diet for now and advance as tolerated tomorrow. 4. Nexium intravenously. Thank you, Dr. Feliciano Davis for involving us in the care of your patient. If you have any further questions, please call us. JOB# [id number]
--- NOTE | 2016-12-20 15:12 | General Progress Note ---
Subjective - Review of Systems Service Date: 12/20/16 Events since last encounter: No new events. Subjective: Wants morphine. Dilaudid was discontinued. Nursing staff is paging Dr. Davis to inquire about morphine. Objective - Results Result Diagrams: 12/20/16 08:50 12/20/16 08:50 Recent Labs: Laboratory Last Values WBC 5.1 Th/cmm (4.8-10.8) 12/20/16 08:50 RBC 2.66 Mil/cmm (4.30-5.70) L 12/20/16 08:50 Hgb 8.0 gm/dL (13.2-17.3) L D 12/20/16 08:50 Hct 23.8 % (39.0-49.0) L* D 12/20/16 08:50 MCV 89.6 fl (80-99) 12/20/16 08:50 MCH 30.2 pg (26.0-30.0) H 12/20/16 08:50 MCHC Differential 33.7 pg (28.0-36.0) 12/20/16 08:50 RDW 14.1 % (11.5-20.0) 12/20/16 08:50 Plt Count 127 Th/cmm (150-400) L 12/20/16 08:50 MPV 8.4 fl 12/20/16 08:50 Neutrophils % 57.1 % (40.0-80.0) 12/20/16 08:50 Band Neutrophils % 0 % (0-10) 12/14/16 06:36 Lymphocytes % 28.4 % (20.0-50.0) 12/20/16 08:50 Monocytes % 7.2 % (2.0-10.0) 12/20/16 08:50 Eosinophils % 6.2 % (0.0-5.0) H 12/20/16 08:50 Basophils % 1.1 % (0.0-2.0) 12/20/16 08:50 Neutrophils (Manual) 41 % (40-80) 12/15/16 05:49 Lymphocytes 42 % (20-50) 12/15/16 05:49 Monocytes 9 % (2-10) 12/15/16 05:49 Eosinophils 7 % (0-5) H 12/15/16 05:49 Basophils 1 % (0-3) 12/15/16 05:49 Platelet Estimate DECREASED PLATELETS (NORMAL) 12/15/16 05:49 Platelet Morphology NORMAL (NORMAL) 12/15/16 05:49 Anisocytosis 1+ 12/15/16 05:49 RBC Morph Micro Appear ABNORMAL (NORMAL) 12/15/16 05:49 PT 11.5 SECONDS (9.5-11.5) 12/20/16 08:50 INR 1.10 (0.5-1.4) 12/20/16 08:50 PTT (Actin FS) 23.8 SECONDS (26.0-38.0) L 12/20/16 08:50 Sodium 140 mEq/L (136-145) 12/20/16 08:50 Potassium 3.7 mEq/L (3.5-5.1) 12/20/16 08:50 Chloride 109 mEq/L (98-107) H 12/20/16 08:50 Carbon Dioxide 23.0 mEq/L (21.0-31.0) 12/20/16 08:50 Anion Gap 11.7 (7.0-16.0) 12/20/16 08:50 BUN 31 mg/dL (7-25) H 12/20/16 08:50 Creatinine 5.6 mg/dL (0.7-1.3) H* 12/20/16 08:50 Est GFR ( Amer) 15.3 ml/min (>90) 12/20/16 08:50 Est GFR (Non-Af Amer) 12.6 ml/min 12/20/16 08:50 BUN/Creatinine Ratio 5.5 12/20/16 08:50 Glucose 119 mg/dL (70-105) H 12/20/16 08:50 POC Glucose 98 MG/DL (70 - 105) 12/20/16 11:20 Hemoglobin A1c % 5.0 % (4.0-6.0) 12/10/16 21:19 Calcium 8.5 mg/dL (8.6-10.3) L 12/20/16 08:50 Iron 143 ug/dL (38-169) 12/16/16 09:05 TIBC 168 ug/dL (250-450) L 12/16/16 09:05 Iron Saturation 85 % (15-55) H 12/16/16 09:05 Unsaturated IBC 25 ug/dL (111-343) L 12/16/16 09:05 Ferritin 1578 ng/mL (30-400) H 12/16/16 09:05 Total Bilirubin 1.7 mg/dL (0.3-1.0) H 12/20/16 08:50 Direct Bilirubin 5.13 mg/dL (0.0-0.2) H 12/12/16 06:30 AST 43 U/L (13-39) H 12/20/16 08:50 ALT 54 U/L (7-52) H 12/20/16 08:50 Alkaline Phosphatase 233 U/L (34-104) H 12/20/16 08:50 Troponin I < 0.01 ng/mL (0.01-0.05) L 12/10/16 21:19 Total Protein 5.2 gm/dL (6.0-8.3) L 12/20/16 08:50 Albumin 3.0 gm/dL (4.2-5.5) L 12/20/16 08:50 Globulin 2.2 gm/dL 12/20/16 08:50 Albumin/Globulin Ratio 1.4 (1.0-1.8) 12/20/16 08:50 Ceruloplasmin 20.5 mg/dL (16.0-31.0) 12/16/16 09:05 Triglycerides 46 mg/dL (<150) 12/10/16 21:19 Cholesterol 122 mg/dL (<200) 12/10/16 21:19 LDL Cholesterol Direct 30 mg/dL (75-193) L 12/10/16 21:19 HDL Cholesterol 71 mg/dL (23-92) 12/10/16 21:19 Amylase 107 U/L (29-103) H 12/15/16 05:49 Lipase 48 U/L (11-82) 12/15/16 05:49 TSH 6.49 uIU/ml (0.34-5.60) H 12/10/16 21:19 Urine Source CLEAN C 12/11/16 07:40 Urine Color YELLOW 12/11/16 07:40 Urine Clarity H (CLEAR) 12/11/16 07:40 Urine pH 7.0 (4.6 - 8.0) 12/11/16 07:40 Ur Specific [place] 1.010 (1.005-1.030) 12/11/16 07:40 Urine Protein 100 mg/dL (NEGATIVE) H 12/11/16 07:40 Urine Glucose (UA) 250 mg/dL (NEGATIVE) H 12/11/16 07:40 Urine Ketones NEGATIVE mg/dL (NEGATIVE) 12/11/16 07:40 Urine Blood SMALL (NEGATIVE) H 12/11/16 07:40 Urine Nitrate NEGATIVE (NEGATIVE) 12/11/16 07:40 Urine Bilirubin NEGATIVE (NEGATIVE) 12/11/16 07:40 Urine Urobilinogen 0.2 E.U./dL (0.2 - 1.0) 12/11/16 07:40 Ur Leukocyte Esterase NEGATIVE (NEGATIVE) 12/11/16 07:40 Urine RBC 0-2 /hpf (0-5) H 12/11/16 07:40 Urine WBC 0-2 /hpf (0-5) 12/11/16 07:40 Ur Epithelial Cells OCCASIONAL /lpf (FEW) 12/11/16 07:40 Urine Bacteria NONE SEEN /hpf (NONE SEEN) 12/11/16 07:40 Levetiracetam 42.0 ug/mL (10.0-40.0) H 12/10/16 21:19 Anti-Mitochondrial Ab 5.5 Units (0.0-20.0) 12/16/16 09:05 Hepatitis A IgM Ab Negative (Negative) 12/16/16 09:05 Hep Bs Antigen Negative (Negative) 12/16/16 09:05 Hep B Core IgM Ab Negative (Negative) 12/16/16 09:05 Hepatitis C Antibody <0.1 s/co ratio (0.0-0.9) 12/16/16 09:05 Blood Type AB POSITIVE 12/19/16 11:18 Antibody Screen NEGATIVE 12/19/16 11:18 - Physical Exam Vitals and I&O: Vital Signs Temp 98.0 F 12/20/16 12:00 Pulse 85 12/20/16 12:00 Resp 17 12/20/16 12:00 BP 134/59 12/20/16 12:00 Pulse Ox 100 12/20/16 12:00 Intake & Output 12/19/16 12/20/16 12/20/16 18:59 06:59 18:59 Intake Total 20 1092.333 95.5 Balance 20 1092.333 95.5 Weight (lbs) 43.545 kg Intake: Intake, IV Amount 1092.333 95.5 MISC Injection 2 vial In 92.333 95.5 Sodium Chloride 0.9% 100 ml @ 10 mls/hr IV Q10H [facility] Rx#:[id number] Sodium Chloride 0.9% 1, 1000 000 ml @ 50 mls/hr IV . Q20H [facility] Rx#:[id number] Oral 20 Other: # Voids 2 Stool Characteristics Soft Soft Active Medications: Current Medications Epoetin Marv (Epogen) 10,000 units SUBQ MWF [facility] Stop: 02/17/17 08:59 Last Admin: 12/19/16 09:17 Dose: Not Given Sodium Chloride (Nacl 0.9%) 1,000 mls @ 50 mls/hr IV .Q20H [facility] Stop: 02/13/17 16:17 Last Admin: 12/20/16 05:46 Dose: 50 mls/hr Miscellaneous 2 vial/ Sodium (Chloride) 100 mls @ 10 mls/hr IV Q10H [facility] Stop: 02/17/17 12:59 Last Admin: 12/20/16 09:36 Dose: 10 mls/hr Lactated Ringer's (Lactated Ringer) 1,000 mls @ 0 mls/hr IV .Q0M [facility] PRN Reason: TKO Stop: 12/21/16 14:14 Ibuprofen (Motrin) 600 mg PO Q6HR PRN PRN Reason: SEVERE PAIN Stop: 02/17/17 14:21 Insulin Aspart (Novolog Insulin Sliding Scale) 0 units SUBQ ACHS [facility] PRN Reason: Protocol Stop: 02/09/17 07:29 Last Admin: 12/20/16 11:21 Dose: Not Given Lactobacillus Rhamnosus (Culturelle) 1 each PO DAILY [facility] Stop: 02/15/17 08:59 Last Admin: 12/20/16 08:25 Dose: Not Given Levetiracetam (Keppra) 500 mg PO BID [facility] Stop: 02/09/17 08:59 Last Admin: 12/20/16 08:25 Dose: Not Given Meperidine HCl (Demerol) 12.5 mg IVP UD PRN PRN Reason: POST-OP PAIN Stop: 12/21/16 14:08 Miscellaneous (Zosyn Iv Per Pharmacy) 1 ea PRN PRN PRN Reason: PROTOCOL Stop: 02/09/17 04:59 Miscellaneous (Probiotic Screen) 1 ea PRN PRN PRN Reason: PROTOCOL Stop: 02/14/17 13:13 Ondansetron HCl (Zofran) 4 mg IV Q6HR PRN PRN Reason: Nausea / Vomiting Stop: 02/09/17 01:22 Ondansetron HCl (Zofran) 4 mg IV X1 PRN PRN Reason: Nausea / Vomiting Stop: 12/21/16 14:08 Sitagliptin Phosphate (Januvia) 25 mg PO DAILY [facility] Stop: 02/10/17 08:59 Last Admin: 12/20/16 08:25 Dose: Not Given General: Alert, Oriented x3, No acute distress HEENT: Atraumatic, EOMI, Mucous membr. moist/pink Neck: Supple Cardiovascular: Regular rate, Normal S1, Normal S2 Lungs: Clear to auscultation Abdomen: Bowel sounds, Soft Extremities: Other (No edema) - Procedures Procedures: Procedures Procedure Code Date ABDOMEN SURGERY PROCEDURE 85705 10/21/16 DESTRUCTION OF STOMACH, PYLORUS, ENDO [id number] 12/11/16 DILATION OF COMMON BILE DUCT, ENDO [id number] 12/11/16 EGD BIOPSY SINGLE/MULTIPLE 27180 02/20/16 ENDO CHOLANGIOPANCREATOGRAPH 50935 12/11/16 EXCISION OF DUODENUM, ENDO, DIAGN 7XR43BR 02/20/16 EXCISION OF STOMACH, PYLORUS, ENDO, DIAGN 0DO04GQ 02/20/16 INTRODUCTION OF OTHER THERAPEUTIC SUBSTANCE INTO UP GI, ENDO 7M2N8UT 12/11/16 INTRODUCTION OF SERUM/TOX/VACCINE INTO MUSCLE, PERC APPROACH 6M9390I 11/05/16 PERFORMANCE OF URINARY FILTRATION, MULTIPLE 2K1R91C 10/21/16 PERFORMANCE OF URINARY FILTRATION, SINGLE 9G5Z12P 11/05/16 RELEASE GREATER OMENTUM, OPEN APPROACH [id number] 10/21/16 RELEASE LIVER, OPEN APPROACH 9QH19BX 10/21/16 REMOVAL OF GALLBLADDER 35895 10/21/16 RESECTION OF GALLBLADDER, OPEN APPROACH [id number] 10/21/16 TRANSFUSE NONAUT RED BLOOD CELLS IN PERIPH VEIN, PERC 64655X0 11/05/16 UPPR GI SCOPE W/SUBMUC INJ 67402 08/06/17 Assessment/Plan - Assessment Assessment: 1. ESRD. 2. GIB 3. DM 4. HTN 5. Chronic decreased hearing. - Plan Plan: + Continue HD support + On meds for DM + Continue monitoring H/H. Transfuse as needed. Nutritional Asmnt/Malnutr-PDOC - Dietary Evaluation Malnutrition Findings (Please click <Entered> for more info): Nutritional Asmnt/Malnutrition Start: 12/12/16 14: 00 Text: Status: Complete Freq: Document 12/12/16 14:00 [facility] (Rec: 12/12/16 14:10 [facility] [id number]) Nutritional Asmnt/Malnutrition Patient General Information Nutritional Screening High Risk Screening Diagnosis Common bile duct dilation Pertinent Medical Hx/Surgical Hx HTN, DM, ESRD on dialysis, seizures, cholecystectomy Subjective Information Pt is a 31-year-old male admitted with chief complaint of right sided abdominal pain. RD attempted visit twice but pt was sound asleep on both occasions. Pt appears to have a small body frame but no signs of muscle or fat depletion. IBW calculated with consideration of small body frame. Per ER report, pt has had vomiting and diarrhea for several days; no current reports of GI distress. Current Diet Order/ Nutrition Support Clear liquid Patient / S.O Can Pertinent Medications D5-0.45 ns, Dilaudid, Piperacillin, Januvia Pertinent Labs (12/10) Na 133L, Glucose 185H, LDL Cholesterol 30L. (12/12) Na 131L, K 5.5H, BUN 59H, Creatinine 8.4H, Total Bilirubin 3.8H, AST 330H, ALT 340H, Alkaline Phosphatase 522H, Amylase 127H Nutritional Hx/Data Height 1.57 m Height (Calculated Centimeters) 157.5 Current Weight (lbs) 47.174 kg Weight (Calculated Kilograms) 47.2 Weight (Calculated Grams) 40713.6 Usual body Weight (lbs) 104 % Usual Body Weight 100 [place] Body Weight 106 % [place] Body Weight 98 Recent Weight Change No Weight Status Approriate GI Symptoms GI Symptoms Vomitting Diarrhea Food Allergies No Skin Integrity/Comment: Rohit Burnham. Skin intact. Estimated Nutritional Goals BEE in Kcals: Using Current wt Calories/Kcals/Kg Based on current wt 47.2 kg with consideration of dialysis Kcals Calculated 0255-3817 kcals/day (30-35 kcals/kg) Protein: Using Current wt Protein g/kg: Based on current wt 47.2 kg with consideration of dialysis Protein Calculated 57-71 gm/day (1.2-1.5 gm/kg) Fluid: ml Per MD/DO Nutritional Problem 1. Problem Problem Inadequate energy/protein intake related to Etiology altered GI function with vomiting and diarrhea as evidenced by Signs/Symptoms: need for clear liquid diet. Malnutrition Alert Protein-Calorie Malnutrition N/A Malnutrition Related to Morbid Obesity Malnutrition related to morbid obesity No Intervention/Recommendation Recommendations by RD Increase Calorie Intake Protein supplementation Comments 1. Recommend Boost Breeze TID with clear liquid diet to promote nutritional intake. Encourage oral intake. 2. Advance as tolerated to renal diet with Novosource Renal BID. Expected Outcomes/Goals Expected Outcomes/Goals Have pt meet at least 75% of estimated nutritional needs with acceptable tolerance. Physician Parameters for PEM Normal Weight % 90% - 110% (Normal) Body Mass Index (BMI) 18 - 24 (Mild) Serum Albumin (g/dl) 3.5 - 5.0 (Normal)
--- NOTE | 2016-12-20 16:29 | General Progress Note ---
Subjective - Review of Systems Service Date: 12/20/16 Events since last encounter: EGD today noted Objective - Results Result Diagrams: 12/20/16 08:50 12/20/16 08:50 Recent Labs: Laboratory Last Values WBC 5.1 Th/cmm (4.8-10.8) 12/20/16 08:50 RBC 2.66 Mil/cmm (4.30-5.70) L 12/20/16 08:50 Hgb 8.0 gm/dL (13.2-17.3) L D 12/20/16 08:50 Hct 23.8 % (39.0-49.0) L* D 12/20/16 08:50 MCV 89.6 fl (80-99) 12/20/16 08:50 MCH 30.2 pg (26.0-30.0) H 12/20/16 08:50 MCHC Differential 33.7 pg (28.0-36.0) 12/20/16 08:50 RDW 14.1 % (11.5-20.0) 12/20/16 08:50 Plt Count 127 Th/cmm (150-400) L 12/20/16 08:50 MPV 8.4 fl 12/20/16 08:50 Neutrophils % 57.1 % (40.0-80.0) 12/20/16 08:50 Band Neutrophils % 0 % (0-10) 12/14/16 06:36 Lymphocytes % 28.4 % (20.0-50.0) 12/20/16 08:50 Monocytes % 7.2 % (2.0-10.0) 12/20/16 08:50 Eosinophils % 6.2 % (0.0-5.0) H 12/20/16 08:50 Basophils % 1.1 % (0.0-2.0) 12/20/16 08:50 Neutrophils (Manual) 41 % (40-80) 12/15/16 05:49 Lymphocytes 42 % (20-50) 12/15/16 05:49 Monocytes 9 % (2-10) 12/15/16 05:49 Eosinophils 7 % (0-5) H 12/15/16 05:49 Basophils 1 % (0-3) 12/15/16 05:49 Platelet Estimate DECREASED PLATELETS (NORMAL) 12/15/16 05:49 Platelet Morphology NORMAL (NORMAL) 12/15/16 05:49 Anisocytosis 1+ 12/15/16 05:49 RBC Morph Micro Appear ABNORMAL (NORMAL) 12/15/16 05:49 PT 11.5 SECONDS (9.5-11.5) 12/20/16 08:50 INR 1.10 (0.5-1.4) 12/20/16 08:50 PTT (Actin FS) 23.8 SECONDS (26.0-38.0) L 12/20/16 08:50 Sodium 140 mEq/L (136-145) 12/20/16 08:50 Potassium 3.7 mEq/L (3.5-5.1) 12/20/16 08:50 Chloride 109 mEq/L (98-107) H 12/20/16 08:50 Carbon Dioxide 23.0 mEq/L (21.0-31.0) 12/20/16 08:50 Anion Gap 11.7 (7.0-16.0) 12/20/16 08:50 BUN 31 mg/dL (7-25) H 12/20/16 08:50 Creatinine 5.6 mg/dL (0.7-1.3) H* 12/20/16 08:50 Est GFR ( Amer) 15.3 ml/min (>90) 12/20/16 08:50 Est GFR (Non-Af Amer) 12.6 ml/min 12/20/16 08:50 BUN/Creatinine Ratio 5.5 12/20/16 08:50 Glucose 119 mg/dL (70-105) H 12/20/16 08:50 POC Glucose 98 MG/DL (70 - 105) 12/20/16 11:20 Hemoglobin A1c % 5.0 % (4.0-6.0) 12/10/16 21:19 Calcium 8.5 mg/dL (8.6-10.3) L 12/20/16 08:50 Iron 143 ug/dL (38-169) 12/16/16 09:05 TIBC 168 ug/dL (250-450) L 12/16/16 09:05 Iron Saturation 85 % (15-55) H 12/16/16 09:05 Unsaturated IBC 25 ug/dL (111-343) L 12/16/16 09:05 Ferritin 1578 ng/mL (30-400) H 12/16/16 09:05 Total Bilirubin 1.7 mg/dL (0.3-1.0) H 12/20/16 08:50 Direct Bilirubin 5.13 mg/dL (0.0-0.2) H 12/12/16 06:30 AST 43 U/L (13-39) H 12/20/16 08:50 ALT 54 U/L (7-52) H 12/20/16 08:50 Alkaline Phosphatase 233 U/L (34-104) H 12/20/16 08:50 Troponin I < 0.01 ng/mL (0.01-0.05) L 12/10/16 21:19 Total Protein 5.2 gm/dL (6.0-8.3) L 12/20/16 08:50 Albumin 3.0 gm/dL (4.2-5.5) L 12/20/16 08:50 Globulin 2.2 gm/dL 12/20/16 08:50 Albumin/Globulin Ratio 1.4 (1.0-1.8) 12/20/16 08:50 Ceruloplasmin 20.5 mg/dL (16.0-31.0) 12/16/16 09:05 Triglycerides 46 mg/dL (<150) 12/10/16 21:19 Cholesterol 122 mg/dL (<200) 12/10/16 21:19 LDL Cholesterol Direct 30 mg/dL (75-193) L 12/10/16 21:19 HDL Cholesterol 71 mg/dL (23-92) 12/10/16 21:19 Amylase 107 U/L (29-103) H 12/15/16 05:49 Lipase 48 U/L (11-82) 12/15/16 05:49 TSH 6.49 uIU/ml (0.34-5.60) H 12/10/16 21:19 Urine Source CLEAN C 12/11/16 07:40 Urine Color YELLOW 12/11/16 07:40 Urine Clarity H (CLEAR) 12/11/16 07:40 Urine pH 7.0 (4.6 - 8.0) 12/11/16 07:40 Ur Specific [place] 1.010 (1.005-1.030) 12/11/16 07:40 Urine Protein 100 mg/dL (NEGATIVE) H 12/11/16 07:40 Urine Glucose (UA) 250 mg/dL (NEGATIVE) H 12/11/16 07:40 Urine Ketones NEGATIVE mg/dL (NEGATIVE) 12/11/16 07:40 Urine Blood SMALL (NEGATIVE) H 12/11/16 07:40 Urine Nitrate NEGATIVE (NEGATIVE) 12/11/16 07:40 Urine Bilirubin NEGATIVE (NEGATIVE) 12/11/16 07:40 Urine Urobilinogen 0.2 E.U./dL (0.2 - 1.0) 12/11/16 07:40 Ur Leukocyte Esterase NEGATIVE (NEGATIVE) 12/11/16 07:40 Urine RBC 0-2 /hpf (0-5) H 12/11/16 07:40 Urine WBC 0-2 /hpf (0-5) 12/11/16 07:40 Ur Epithelial Cells OCCASIONAL /lpf (FEW) 12/11/16 07:40 Urine Bacteria NONE SEEN /hpf (NONE SEEN) 12/11/16 07:40 Levetiracetam 42.0 ug/mL (10.0-40.0) H 12/10/16 21:19 Anti-Mitochondrial Ab 5.5 Units (0.0-20.0) 12/16/16 09:05 Hepatitis A IgM Ab Negative (Negative) 12/16/16 09:05 Hep Bs Antigen Negative (Negative) 12/16/16 09:05 Hep B Core IgM Ab Negative (Negative) 12/16/16 09:05 Hepatitis C Antibody <0.1 s/co ratio (0.0-0.9) 12/16/16 09:05 Blood Type AB POSITIVE 12/19/16 11:18 Antibody Screen NEGATIVE 12/19/16 11:18 - Physical Exam Vitals and I&O: Vital Signs Temp 98.0 F 12/20/16 12:00 Pulse 85 12/20/16 12:00 Resp 17 12/20/16 12:00 BP 134/59 12/20/16 12:00 Pulse Ox 100 12/20/16 12:00 Intake & Output 12/19/16 12/20/16 12/20/16 18:59 06:59 18:59 Intake Total 20 1092.333 95.5 Balance 20 1092.333 95.5 Weight (lbs) 43.545 kg Intake: Intake, IV Amount 1092.333 95.5 MISC Injection 2 vial In 92.333 95.5 Sodium Chloride 0.9% 100 ml @ 10 mls/hr IV Q10H [facility] Rx#:[id number] Sodium Chloride 0.9% 1, 1000 000 ml @ 50 mls/hr IV . Q20H [facility] Rx#:[id number] Oral 20 Other: # Voids 2 Stool Characteristics Soft Soft Active Medications: Current Medications Epoetin Marv (Epogen) 10,000 units SUBQ MWF [facility] Stop: 02/17/17 08:59 Last Admin: 12/19/16 09:17 Dose: Not Given Sodium Chloride (Nacl 0.9%) 1,000 mls @ 50 mls/hr IV .Q20H [facility] Stop: 02/13/17 16:17 Last Admin: 12/20/16 05:46 Dose: 50 mls/hr Miscellaneous 2 vial/ Sodium (Chloride) 100 mls @ 10 mls/hr IV Q10H [facility] Stop: 02/17/17 12:59 Last Admin: 12/20/16 09:36 Dose: 10 mls/hr Lactated Ringer's (Lactated Ringer) 1,000 mls @ 0 mls/hr IV .Q0M [facility] PRN Reason: TKO Stop: 12/21/16 14:14 Ibuprofen (Motrin) 600 mg PO Q6HR PRN PRN Reason: SEVERE PAIN Stop: 02/17/17 14:21 Last Admin: 12/20/16 15:10 Dose: 600 mg Insulin Aspart (Novolog Insulin Sliding Scale) 0 units SUBQ ACHS [facility] PRN Reason: Protocol Stop: 02/09/17 07:29 Last Admin: 12/20/16 11:21 Dose: Not Given Lactobacillus Rhamnosus (Culturelle) 1 each PO DAILY [facility] Stop: 02/15/17 08:59 Last Admin: 12/20/16 08:25 Dose: Not Given Levetiracetam (Keppra) 500 mg PO BID [facility] Stop: 02/09/17 08:59 Last Admin: 12/20/16 08:25 Dose: Not Given Meperidine HCl (Demerol) 12.5 mg IVP UD PRN PRN Reason: POST-OP PAIN Stop: 12/21/16 14:08 Miscellaneous (Zosyn Iv Per Pharmacy) 1 ea MC PRN PRN PRN Reason: PROTOCOL Stop: 02/09/17 04:59 Miscellaneous (Probiotic Screen) 1 ea PRN PRN PRN Reason: PROTOCOL Stop: 02/14/17 13:13 Ondansetron HCl (Zofran) 4 mg IV Q6HR PRN PRN Reason: Nausea / Vomiting Stop: 02/09/17 01:22 Sitagliptin Phosphate (Januvia) 25 mg PO DAILY [facility] Stop: 02/10/17 08:59 Last Admin: 12/20/16 08:25 Dose: Not Given General: Alert, Oriented x3, No acute distress HEENT: Atraumatic, EOMI, Mucous membr. moist/pink Neck: Supple Cardiovascular: Regular rate, Normal S1, Normal S2 Lungs: Clear to auscultation Abdomen: Bowel sounds, Soft Extremities: Other (No edema) - Procedures Procedures: Procedures Procedure Code Date ABDOMEN SURGERY PROCEDURE 95650 10/21/16 DESTRUCTION OF STOMACH, PYLORUS, ENDO [id number] 12/11/16 DILATION OF COMMON BILE DUCT, ENDO [id number] 12/11/16 EGD BIOPSY SINGLE/MULTIPLE 26489 02/20/16 ENDO CHOLANGIOPANCREATOGRAPH 74097 12/11/16 EXCISION OF DUODENUM, ENDO, DIAGN [id number] 02/20/16 EXCISION OF STOMACH, PYLORUS, ENDO, DIAGN 9RY49LS 02/20/16 INTRODUCTION OF OTHER THERAPEUTIC SUBSTANCE INTO UP GI, ENDO [id number] 12/11/16 INTRODUCTION OF SERUM/TOX/VACCINE INTO MUSCLE, PERC APPROACH 7Y7595L 11/05/16 PERFORMANCE OF URINARY FILTRATION, MULTIPLE 7O2H40I 10/21/16 PERFORMANCE OF URINARY FILTRATION, SINGLE 1H0C69I 11/05/16 RELEASE GREATER OMENTUM, OPEN APPROACH [id number] 10/21/16 RELEASE LIVER, OPEN APPROACH 0ME43OF 10/21/16 REMOVAL OF GALLBLADDER 65415 10/21/16 RESECTION OF GALLBLADDER, OPEN APPROACH [id number] 10/21/16 TRANSFUSE NONAUT RED BLOOD CELLS IN PERIPH VEIN, PERC 64417E5 11/05/16 UPPR GI SCOPE W/SUBMUC INJ 94358 12/11/16 Nutritional Asmnt/Malnutr-PDOC - Dietary Evaluation Malnutrition Findings (Please click <Entered> for more info): Nutritional Asmnt/Malnutrition Start: 12/12/16 14: 00 Text: Status: Complete Freq: Document 12/12/16 14:00 [facility] (Rec: 12/12/16 14:10 [facility] [id number]) Nutritional Asmnt/Malnutrition Patient General Information Nutritional Screening High Risk Screening Diagnosis Common bile duct dilation Pertinent Medical Hx/Surgical Hx HTN, DM, ESRD on dialysis, seizures, cholecystectomy Subjective Information Pt is a 31-year-old male admitted with chief complaint of right sided abdominal pain. RD attempted visit twice but pt was sound asleep on both occasions. Pt appears to have a small body frame but no signs of muscle or fat depletion. IBW calculated with consideration of small body frame. Per ER report, pt has had vomiting and diarrhea for several days; no current reports of GI distress. Current Diet Order/ Nutrition Support Clear liquid Patient / S.O Can Pertinent Medications D5-0.45 ns, Dilaudid, Piperacillin, Januvia Pertinent Labs (12/10) Na 133L, Glucose 185H, LDL Cholesterol 30L. (12/12) Na 131L, K 5.5H, BUN 59H, Creatinine 8.4H, Total Bilirubin 3.8H, AST 330H, ALT 340H, Alkaline Phosphatase 522H, Amylase 127H Nutritional Hx/Data Height 1.57 m Height (Calculated Centimeters) 157.5 Current Weight (lbs) 47.174 kg Weight (Calculated Kilograms) 47.2 Weight (Calculated Grams) 80776.6 Usual body Weight (lbs) 104 % Usual Body Weight 100 [place] Body Weight 106 % [place] Body Weight 98 Recent Weight Change No Weight Status Approriate GI Symptoms GI Symptoms Vomitting Diarrhea Food Allergies No Skin Integrity/Comment: Rohit Burnham. Skin intact. Estimated Nutritional Goals BEE in Kcals: Using Current wt Calories/Kcals/Kg Based on current wt 47.2 kg with consideration of dialysis Kcals Calculated 8988-1742 kcals/day (30-35 kcals/kg) Protein: Using Current wt Protein g/kg: Based on current wt 47.2 kg with consideration of dialysis Protein Calculated 57-71 gm/day (1.2-1.5 gm/kg) Fluid: ml Per MD/DO Nutritional Problem 1. Problem Problem Inadequate energy/protein intake related to Etiology altered GI function with vomiting and diarrhea as evidenced by Signs/Symptoms: need for clear liquid diet. Malnutrition Alert Protein-Calorie Malnutrition N/A Malnutrition Related to Morbid Obesity Malnutrition related to morbid obesity No Intervention/Recommendation Recommendations by RD Increase Calorie Intake Protein supplementation Comments 1. Recommend Boost Breeze TID with clear liquid diet to promote nutritional intake. Encourage oral intake. 2. Advance as tolerated to renal diet with Novosource Renal BID. Expected Outcomes/Goals Expected Outcomes/Goals Have pt meet at least 75% of estimated nutritional needs with acceptable tolerance. Physician Parameters for PEM Normal Weight % 90% - 110% (Normal) Body Mass Index (BMI) 18 - 24 (Mild) Serum Albumin (g/dl) 3.5 - 5.0 (Normal)
[2016-12-20] MEDS ORDERED: Hydrocodone/APAP 5mg/325mg Tab PO PRN (20:33)
[2016-12-20 23:27] LABS: MEAN CELL VOLUME 89.8 fl (80-99); MEAN CORPUSCULAR HEMOGLOBIN 31.4 pg (26.0-30.0); MEAN PLATELET VOLUME 8.6 fl; PLATELET COUNT 120 Th/cmm (150-400); RED BLOOD COUNT 2.42 Mil/cmm (4.30-5.70); RED CELL DISTRIBUTION WIDTH 13.7 % (11.5-20.0); WHITE BLOOD COUNT 7.4 Th/cmm (4.8-10.8)
[2016-12-20 23:30] LABS: HEMATOCRIT 21.7 % (39.0-49.0); HEMOGLOBIN 7.6 gm/dL (13.2-17.3)
[2016-12-21] MEDS: SODIUM CHLORIDE 0.9% IV SCH ×2 (02:55→15:13)
[2016-12-21] MEDS: ESOMEPRAZOLE IV SCH ×2 (02:55→15:13)
[2016-12-21] MEDS: HYDROmorphone 1 mg/mL 1mL Syr IVP PRN ×5 (03:54→20:14)
[2016-12-21 05:52] LABS: BAND NEUTROPHILE 7 % (0-10); EOSINOPHIL 3 % (0-5); NEUTROPHILS 64 % (40-80); PLATELET ESTIMATE DECREASED PLATELETS (NORMAL); TOTAL CELLS COUNTED 100
[2016-12-21 05:53] LABS: PLATELET MORPHOLOGY PLATELET CLUMPS SEEN (NORMAL)
[2016-12-21 07:19] LABS: MEAN CELL VOLUME 88.5 fl (80-99); MEAN CORPUSCULAR HEMOGLOBIN 30.4 pg (26.0-30.0); MEAN CORPUSCULAR HGB CONC 34.3 pg (28.0-36.0); MEAN PLATELET VOLUME 8.2 fl; PLATELET COUNT 137 Th/cmm (150-400); RED BLOOD COUNT 2.45 Mil/cmm (4.30-5.70); RED CELL DISTRIBUTION WIDTH 13.7 % (11.5-20.0); WHITE BLOOD COUNT 6.8 Th/cmm (4.8-10.8)
[2016-12-21 07:38] LABS: ALB/GLOB RATIO 1.3 (1.0-1.8); ANION GAP 15.3 (7.0-16.0); BILIRUBIN,TOTAL 1.6 mg/dL (0.3-1.0); BUN/CREATININE RATIO 5.8; CARBON DIOXIDE 17.2 mEq/L (21.0-31.0); POTASSIUM SERUM 3.5 mEq/L (3.5-5.1)
[2016-12-21] MEDS: INSULIN ASPART SLIDING SCALE 100 UNITS/ML UNIT SUBQ SCH ×4 (08:12→20:24)
[2016-12-21 08:21] LABS: HEMATOCRIT 21.7 % (39.0-49.0); HEMOGLOBIN 7.5 gm/dL (13.2-17.3)
[2016-12-21 08:23] LABS: CREATININE - SERUM 7.2 mg/dL (0.7-1.3)
[2016-12-21] MEDS: Lactobacillus Rhamnosus 10 Billion CFU Capsule PO SCH (08:57)
--- NOTE | 2016-12-21 09:44 | General Progress Note ---
Subjective - Review of Systems Subjective: Patient was seen and examined. Patient states my pain is back.S/P EGD findings noted. Patient denies chest pain, shortness of breath, palpitation, dizziness, nausea, vomiting, headache, fever, chills. Objective - Results Result Diagrams: 12/21/16 06:46 12/21/16 06:46 Recent Labs: Laboratory Last Values WBC 6.8 Th/cmm (4.8-10.8) 12/21/16 06:46 RBC 2.45 Mil/cmm (4.30-5.70) L 12/21/16 06:46 Hgb 7.5 gm/dL (13.2-17.3) L* 12/21/16 06:46 Hct 21.7 % (39.0-49.0) L* 12/21/16 06:46 MCV 88.5 fl (80-99) 12/21/16 06:46 MCH 30.4 pg (26.0-30.0) H 12/21/16 06:46 MCHC Differential 34.3 pg (28.0-36.0) 12/21/16 06:46 RDW 13.7 % (11.5-20.0) 12/21/16 06:46 Plt Count 137 Th/cmm (150-400) L 12/21/16 06:46 MPV 8.2 fl 12/21/16 06:46 Neutrophils % 57.1 % (40.0-80.0) 12/20/16 08:50 Band Neutrophils % 7 % (0-10) 12/20/16 23:00 Lymphocytes % 28.4 % (20.0-50.0) 12/20/16 08:50 Monocytes % 7.2 % (2.0-10.0) 12/20/16 08:50 Eosinophils % 6.2 % (0.0-5.0) H 12/20/16 08:50 Basophils % 1.1 % (0.0-2.0) 12/20/16 08:50 Neutrophils (Manual) 64 % (40-80) 12/20/16 23:00 Lymphocytes 23 % (20-50) 12/20/16 23:00 Monocytes 3 % (2-10) 12/20/16 23:00 Eosinophils 3 % (0-5) 12/20/16 23:00 Basophils 1 % (0-3) 12/15/16 05:49 Platelet Estimate DECREASED PLATELETS (NORMAL) 12/20/16 23:00 Platelet Morphology PLATELET CLUMPS SEEN (NORMAL) 12/20/16 23:00 Anisocytosis 1+ 12/15/16 05:49 RBC Morph Micro Appear NORMAL (NORMAL) 12/20/16 23:00 PT 11.5 SECONDS (9.5-11.5) 12/20/16 08:50 INR 1.10 (0.5-1.4) 12/20/16 08:50 PTT (Actin FS) 23.8 SECONDS (26.0-38.0) L 12/20/16 08:50 Sodium 138 mEq/L (136-145) 12/21/16 06:46 Potassium 3.5 mEq/L (3.5-5.1) 12/21/16 06:46 Chloride 109 mEq/L (98-107) H 12/21/16 06:46 Carbon Dioxide 17.2 mEq/L (21.0-31.0) L 12/21/16 06:46 Anion Gap 15.3 (7.0-16.0) 12/21/16 06:46 BUN 42 mg/dL (7-25) H 12/21/16 06:46 Creatinine 7.2 mg/dL (0.7-1.3) H* 12/21/16 06:46 Est GFR ( Amer) 11.4 ml/min (>90) 12/21/16 06:46 Est GFR (Non-Af Amer) 9.4 ml/min 12/21/16 06:46 BUN/Creatinine Ratio 5.8 12/21/16 06:46 Glucose 110 mg/dL (70-105) H 12/21/16 06:46 POC Glucose 206 MG/DL (70 - 105) H 12/20/16 17:05 Hemoglobin A1c % 5.0 % (4.0-6.0) 12/10/16 21:19 Calcium 9.0 mg/dL (8.6-10.3) 12/21/16 06:46 Iron 143 ug/dL (38-169) 12/16/16 09:05 TIBC 168 ug/dL (250-450) L 12/16/16 09:05 Iron Saturation 85 % (15-55) H 12/16/16 09:05 Unsaturated IBC 25 ug/dL (111-343) L 12/16/16 09:05 Ferritin 1578 ng/mL (30-400) H 12/16/16 09:05 Total Bilirubin 1.6 mg/dL (0.3-1.0) H 12/21/16 06:46 Direct Bilirubin 5.13 mg/dL (0.0-0.2) H 12/12/16 06:30 AST 40 U/L (13-39) H 12/21/16 06:46 ALT 55 U/L (7-52) H 12/21/16 06:46 Alkaline Phosphatase 254 U/L (34-104) H 12/21/16 06:46 Troponin I < 0.01 ng/mL (0.01-0.05) L 12/10/16 21:19 Total Protein 5.6 gm/dL (6.0-8.3) L 12/21/16 06:46 Albumin 3.2 gm/dL (4.2-5.5) L 12/21/16 06:46 Globulin 2.4 gm/dL 12/21/16 06:46 Albumin/Globulin Ratio 1.3 (1.0-1.8) 12/21/16 06:46 Ceruloplasmin 20.5 mg/dL (16.0-31.0) 12/16/16 09:05 Triglycerides 46 mg/dL (<150) 12/10/16 21:19 Cholesterol 122 mg/dL (<200) 12/10/16 21:19 LDL Cholesterol Direct 30 mg/dL (75-193) L 12/10/16 21:19 HDL Cholesterol 71 mg/dL (23-92) 12/10/16 21:19 Amylase 107 U/L (29-103) H 12/15/16 05:49 Lipase 48 U/L (11-82) 12/15/16 05:49 TSH 6.49 uIU/ml (0.34-5.60) H 12/10/16 21:19 Urine Source CLEAN C 12/11/16 07:40 Urine Color YELLOW 12/11/16 07:40 Urine Clarity H (CLEAR) 12/11/16 07:40 Urine pH 7.0 (4.6 - 8.0) 12/11/16 07:40 Ur Specific [place] 1.010 (1.005-1.030) 12/11/16 07:40 Urine Protein 100 mg/dL (NEGATIVE) H 12/11/16 07:40 Urine Glucose (UA) 250 mg/dL (NEGATIVE) H 12/11/16 07:40 Urine Ketones NEGATIVE mg/dL (NEGATIVE) 12/11/16 07:40 Urine Blood SMALL (NEGATIVE) H 12/11/16 07:40 Urine Nitrate NEGATIVE (NEGATIVE) 12/11/16 07:40 Urine Bilirubin NEGATIVE (NEGATIVE) 12/11/16 07:40 Urine Urobilinogen 0.2 E.U./dL (0.2 - 1.0) 12/11/16 07:40 Ur Leukocyte Esterase NEGATIVE (NEGATIVE) 12/11/16 07:40 Urine RBC 0-2 /hpf (0-5) H 12/11/16 07:40 Urine WBC 0-2 /hpf (0-5) 12/11/16 07:40 Ur Epithelial Cells OCCASIONAL /lpf (FEW) 12/11/16 07:40 Urine Bacteria NONE SEEN /hpf (NONE SEEN) 12/11/16 07:40 Levetiracetam 42.0 ug/mL (10.0-40.0) H 12/10/16 21:19 Anti-Mitochondrial Ab 5.5 Units (0.0-20.0) 12/16/16 09:05 Hepatitis A IgM Ab Negative (Negative) 12/16/16 09:05 Hep Bs Antigen Negative (Negative) 12/16/16 09:05 Hep B Core IgM Ab Negative (Negative) 12/16/16 09:05 Hepatitis C Antibody <0.1 s/co ratio (0.0-0.9) 12/16/16 09:05 Blood Type AB POSITIVE 12/19/16 11:18 Antibody Screen NEGATIVE 12/19/16 11:18 - Physical Exam Vitals and I&O: Vital Signs Temp 97.3 F 12/21/16 08:02 Pulse 84 12/21/16 08:02 Resp 20 12/21/16 08:02 BP 98/48 12/21/16 08:02 Pulse Ox 100 12/21/16 08:02 Intake & Output 12/20/16 12/21/16 12/21/16 18:59 06:59 18:59 Intake Total 95.5 250 Output Total 300 Balance 95.5 -50 Weight (lbs) 43.908 kg Intake: Intake, IV Amount 95.5 100 MISC Injection 2 vial In 95.5 100 Sodium Chloride 0.9% 100 ml @ 10 mls/hr IV Q10H [facility] Rx#:[id number] Oral 150 Output: Urine 300 Other: # Voids 1 # Bowel Movements 2 Stool Characteristics Soft Active Medications: Current Medications Acetaminophen/Hydrocodone Bitart ([place] 5mg/325mg) 1 tab PO Q6H PRN PRN Reason: Pain (Moderate) Stop: 02/18/17 20:32 Last Admin: 12/20/16 20:57 Dose: 1 tab Epoetin Marv (Epogen) 10,000 units SUBQ MWF [facility] Stop: 02/17/17 08:59 Last Admin: 12/19/16 09:17 Dose: Not Given Hydromorphone HCl (Dilaudid) 1 mg IVP Q4HR PRN PRN Reason: Pain (Severe) Stop: 02/18/17 22:21 Last Admin: 12/21/16 07:29 Dose: 1 mg Sodium Chloride (Nacl 0.9%) 1,000 mls @ 50 mls/hr IV .Q20H [facility] Stop: 02/13/17 16:17 Last Admin: 12/20/16 05:46 Dose: 50 mls/hr Miscellaneous 2 vial/ Sodium (Chloride) 100 mls @ 10 mls/hr IV Q10H [facility] Stop: 02/17/17 12:59 Last Admin: 12/21/16 02:55 Dose: 10 mls/hr Lactated Ringer's (Lactated Ringer) 1,000 mls @ 0 mls/hr IV .Q0M [facility] PRN Reason: TKO Stop: 12/21/16 14:14 Insulin Aspart (Novolog Insulin Sliding Scale) 0 units SUBQ ACHS [facility] PRN Reason: Protocol Stop: 02/09/17 07:29 Last Admin: 12/21/16 08:12 Dose: Not Given Lactobacillus Rhamnosus (Culturelle) 1 each PO DAILY [facility] Stop: 02/15/17 08:59 Last Admin: 12/21/16 08:57 Dose: 1 each Levetiracetam (Keppra) 500 mg PO BID [facility] Stop: 02/09/17 08:59 Last Admin: 12/21/16 08:57 Dose: 500 mg Meperidine HCl (Demerol) 12.5 mg IVP UD PRN PRN Reason: POST-OP PAIN Stop: 12/21/16 14:08 Miscellaneous (Zosyn Iv Per Pharmacy) 1 ea MC PRN PRN PRN Reason: PROTOCOL Stop: 02/09/17 04:59 Miscellaneous (Probiotic Screen) 1 ea MC PRN PRN PRN Reason: PROTOCOL Stop: 02/14/17 13:13 Ondansetron HCl (Zofran) 4 mg IV Q6HR PRN PRN Reason: Nausea / Vomiting Stop: 02/09/17 01:22 Sitagliptin Phosphate (Januvia) 25 mg PO DAILY [facility] Stop: 02/10/17 08:59 Last Admin: 12/21/16 08:55 Dose: 25 mg General: Alert, Oriented x3, No acute distress HEENT: Atraumatic, EOMI, Mucous membr. moist/pink Neck: Supple Cardiovascular: Regular rate, Normal S1, Normal S2 Lungs: Clear to auscultation Abdomen: Bowel sounds, Soft Extremities: Other (No edema) - Procedures Procedures: Procedures Procedure Code Date ABDOMEN SURGERY PROCEDURE 09953 10/21/16 DESTRUCTION OF STOMACH, PYLORUS, ENDO [id number] 12/11/16 DILATION OF COMMON BILE DUCT, ENDO [id number] 12/11/16 EGD BIOPSY SINGLE/MULTIPLE 08935 02/20/16 ENDO CHOLANGIOPANCREATOGRAPH 50017 12/11/16 EXCISION OF DUODENUM, ENDO, DIAGN 8QS15ON 02/20/16 EXCISION OF STOMACH, PYLORUS, ENDO, DIAGN [id number] 02/20/16 INTRODUCTION OF OTHER THERAPEUTIC SUBSTANCE INTO UP GI, ENDO [id number] 12/11/16 INTRODUCTION OF SERUM/TOX/VACCINE INTO MUSCLE, PERC APPROACH [id number] 11/05/16 PERFORMANCE OF URINARY FILTRATION, MULTIPLE [id number] 10/21/16 PERFORMANCE OF URINARY FILTRATION, SINGLE [id number] 11/05/16 RELEASE GREATER OMENTUM, OPEN APPROACH [id number] 10/21/16 RELEASE LIVER, OPEN APPROACH 7PW69GN 10/21/16 REMOVAL OF GALLBLADDER 50011 10/21/16 RESECTION OF GALLBLADDER, OPEN APPROACH [id number] 10/21/16 TRANSFUSE NONAUT RED BLOOD CELLS IN PERIPH VEIN, PERC 87823I7 11/05/16 UPPR GI SCOPE W/SUBMUC INJ 23770 12/11/16 Assessment/Plan - Assessment Assessment: Obstructive jaundice S/p ERCP clincally improving. end-stage renal disease on hemodialysis. Diabetes mellitus Seizure disorder Recuurent GI bleed after ERCP bleeding from post sphincterotomy site as per GI patient is still oozing S/P cautery and local injection. Recuurent hemorrhagic anemia status post blood transfusion Questionable chronic liver disease and hepatitis panel is negative. Diffuse abdominal pain pain seeking Vs Real pain. Status post exploratory laparotomy for cholelithiasis with cholecystectomy a few weeks ago Bilateral hearing loss. - Plan Plan: Advance diet as tolerated. Discharge planning as per sales representative uniforms. Hemodialysis as planned by firepot operator and tender.. Monitor blood sugar blood pressure. General nursing care. Symptoms management. H/H stable today GI to decide discharge. Seizure precautions. Seizure medications. Follow-up consultants recommendation. Care plan reviewed and discussed with staff. Nutritional Asmnt/Malnutr-PDOC - Dietary Evaluation Malnutrition Findings (Please click <Entered> for more info): Nutritional Asmnt/Malnutrition Start: 12/12/16 14: 00 Text: Status: Complete Freq: Document 12/12/16 14:00 [facility] (Rec: 12/12/16 14:10 [facility] [id number]) Nutritional Asmnt/Malnutrition Patient General Information Nutritional Screening High Risk Screening Diagnosis Common bile duct dilation Pertinent Medical Hx/Surgical Hx HTN, DM, ESRD on dialysis, seizures, cholecystectomy Subjective Information Pt is a 31-year-old male admitted with chief complaint of right sided abdominal pain. RD attempted visit twice but pt was sound asleep on both occasions. Pt appears to have a small body frame but no signs of muscle or fat depletion. IBW calculated with consideration of small body frame. Per ER report, pt has had vomiting and diarrhea for several days; no current reports of GI distress. Current Diet Order/ Nutrition Support Clear liquid Patient / S.O Can Pertinent Medications D5-0.45 ns, Dilaudid, Piperacillin, Januvia Pertinent Labs (12/10) Na 133L, Glucose 185H, LDL Cholesterol 30L. (12/12) Na 131L, K 5.5H, BUN 59H, Creatinine 8.4H, Total Bilirubin 3.8H, AST 330H, ALT 340H, Alkaline Phosphatase 522H, Amylase 127H Nutritional Hx/Data Height 1.57 m Height (Calculated Centimeters) 157.5 Current Weight (lbs) 47.174 kg Weight (Calculated Kilograms) 47.2 Weight (Calculated Grams) 46624.6 Usual body Weight (lbs) 104 % Usual Body Weight 100 [place] Body Weight 106 % [place] Body Weight 98 Recent Weight Change No Weight Status Approriate GI Symptoms GI Symptoms Vomitting Diarrhea Food Allergies No Skin Integrity/Comment: Rohit 21. Skin intact. Estimated Nutritional Goals BEE in Kcals: Using Current wt Calories/Kcals/Kg Based on current wt 47.2 kg with consideration of dialysis Kcals Calculated 4255-4026 kcals/day (30-35 kcals/kg) Protein: Using Current wt Protein g/kg: Based on current wt 47.2 kg with consideration of dialysis Protein Calculated 57-71 gm/day (1.2-1.5 gm/kg) Fluid: ml Per MD/DO Nutritional Problem 1. Problem Problem Inadequate energy/protein intake related to Etiology altered GI function with vomiting and diarrhea as evidenced by Signs/Symptoms: need for clear liquid diet. Malnutrition Alert Protein-Calorie Malnutrition N/A Malnutrition Related to Morbid Obesity Malnutrition related to morbid obesity No Intervention/Recommendation Recommendations by RD Increase Calorie Intake Protein supplementation Comments 1. Recommend Boost Breeze TID with clear liquid diet to promote nutritional intake. Encourage oral intake. 2. Advance as tolerated to renal diet with Novosource Renal BID. Expected Outcomes/Goals Expected Outcomes/Goals Have pt meet at least 75% of estimated nutritional needs with acceptable tolerance. Physician Parameters for PEM Normal Weight % 90% - 110% (Normal) Body Mass Index (BMI) 18 - 24 (Mild) Serum Albumin (g/dl) 3.5 - 5.0 (Normal)
[2016-12-21 09:45] LABS: ANISOCYTOSIS 1+; BAND NEUTROPHILE 2 % (0-10); EOSINOPHIL 3 % (0-5); NEUTROPHILS 57 % (40-80); PLATELET ESTIMATE DECREASED PLATELETS (NORMAL); PLATELET MORPHOLOGY NORMAL (NORMAL); TOTAL CELLS COUNTED 100
--- NOTE | 2016-12-21 14:52 | General Progress Note ---
Subjective - Review of Systems Service Date: 12/21/16 Events since last encounter: No new events. Had HD today with transfusion 1 unit PRBC according to nursing staff. Subjective: Pt said "I am fine as long as I get my medicine." Pt is referring to his dilaudid. Objective - Results Result Diagrams: 12/21/16 06:46 12/21/16 06:46 Recent Labs: Laboratory Last Values WBC 6.8 Th/cmm (4.8-10.8) 12/21/16 06:46 RBC 2.45 Mil/cmm (4.30-5.70) L 12/21/16 06:46 Hgb 7.5 gm/dL (13.2-17.3) L* 12/21/16 06:46 Hct 21.7 % (39.0-49.0) L* 12/21/16 06:46 MCV 88.5 fl (80-99) 12/21/16 06:46 MCH 30.4 pg (26.0-30.0) H 12/21/16 06:46 MCHC Differential 34.3 pg (28.0-36.0) 12/21/16 06:46 RDW 13.7 % (11.5-20.0) 12/21/16 06:46 Plt Count 137 Th/cmm (150-400) L 12/21/16 06:46 MPV 8.2 fl 12/21/16 06:46 Neutrophils % 57.1 % (40.0-80.0) 12/20/16 08:50 Band Neutrophils % 2 % (0-10) 12/21/16 06:46 Lymphocytes % 28.4 % (20.0-50.0) 12/20/16 08:50 Monocytes % 7.2 % (2.0-10.0) 12/20/16 08:50 Eosinophils % 6.2 % (0.0-5.0) H 12/20/16 08:50 Basophils % 1.1 % (0.0-2.0) 12/20/16 08:50 Neutrophils (Manual) 57 % (40-80) 12/21/16 06:46 Lymphocytes 31 % (20-50) 12/21/16 06:46 Monocytes 6 % (2-10) 12/21/16 06:46 Eosinophils 3 % (0-5) 12/21/16 06:46 Basophils 1 % (0-3) 12/15/16 05:49 Atypical Lymphocytes 1 % 12/21/16 06:46 Platelet Estimate DECREASED PLATELETS (NORMAL) 12/21/16 06:46 Platelet Morphology NORMAL (NORMAL) 12/21/16 06:46 Anisocytosis 1+ 12/21/16 06:46 RBC Morph Micro Appear ABNORMAL (NORMAL) 12/21/16 06:46 PT 11.5 SECONDS (9.5-11.5) 12/20/16 08:50 INR 1.10 (0.5-1.4) 12/20/16 08:50 PTT (Actin FS) 23.8 SECONDS (26.0-38.0) L 12/20/16 08:50 Sodium 138 mEq/L (136-145) 12/21/16 06:46 Potassium 3.5 mEq/L (3.5-5.1) 12/21/16 06:46 Chloride 109 mEq/L (98-107) H 12/21/16 06:46 Carbon Dioxide 17.2 mEq/L (21.0-31.0) L 12/21/16 06:46 Anion Gap 15.3 (7.0-16.0) 12/21/16 06:46 BUN 42 mg/dL (7-25) H 12/21/16 06:46 Creatinine 7.2 mg/dL (0.7-1.3) H* 12/21/16 06:46 Est GFR ( Amer) 11.4 ml/min (>90) 12/21/16 06:46 Est GFR (Non-Af Amer) 9.4 ml/min 12/21/16 06:46 BUN/Creatinine Ratio 5.8 12/21/16 06:46 Glucose 110 mg/dL (70-105) H 12/21/16 06:46 POC Glucose 89 MG/DL (70 - 105) 12/21/16 11:17 Hemoglobin A1c % 5.0 % (4.0-6.0) 12/10/16 21:19 Calcium 9.0 mg/dL (8.6-10.3) 12/21/16 06:46 Iron 143 ug/dL (38-169) 12/16/16 09:05 TIBC 168 ug/dL (250-450) L 12/16/16 09:05 Iron Saturation 85 % (15-55) H 12/16/16 09:05 Unsaturated IBC 25 ug/dL (111-343) L 12/16/16 09:05 Ferritin 1578 ng/mL (30-400) H 12/16/16 09:05 Total Bilirubin 1.6 mg/dL (0.3-1.0) H 12/21/16 06:46 Direct Bilirubin 5.13 mg/dL (0.0-0.2) H 12/12/16 06:30 AST 40 U/L (13-39) H 12/21/16 06:46 ALT 55 U/L (7-52) H 12/21/16 06:46 Alkaline Phosphatase 254 U/L (34-104) H 12/21/16 06:46 Troponin I < 0.01 ng/mL (0.01-0.05) L 12/10/16 21:19 Total Protein 5.6 gm/dL (6.0-8.3) L 12/21/16 06:46 Albumin 3.2 gm/dL (4.2-5.5) L 12/21/16 06:46 Globulin 2.4 gm/dL 12/21/16 06:46 Albumin/Globulin Ratio 1.3 (1.0-1.8) 12/21/16 06:46 Ceruloplasmin 20.5 mg/dL (16.0-31.0) 12/16/16 09:05 Triglycerides 46 mg/dL (<150) 12/10/16 21:19 Cholesterol 122 mg/dL (<200) 12/10/16 21:19 LDL Cholesterol Direct 30 mg/dL (75-193) L 12/10/16 21:19 HDL Cholesterol 71 mg/dL (23-92) 12/10/16 21:19 Amylase 107 U/L (29-103) H 12/15/16 05:49 Lipase 48 U/L (11-82) 12/15/16 05:49 TSH 6.49 uIU/ml (0.34-5.60) H 12/10/16 21:19 Urine Source CLEAN C 12/11/16 07:40 Urine Color YELLOW 12/11/16 07:40 Urine Clarity H (CLEAR) 12/11/16 07:40 Urine pH 7.0 (4.6 - 8.0) 12/11/16 07:40 Ur Specific [place] 1.010 (1.005-1.030) 12/11/16 07:40 Urine Protein 100 mg/dL (NEGATIVE) H 12/11/16 07:40 Urine Glucose (UA) 250 mg/dL (NEGATIVE) H 12/11/16 07:40 Urine Ketones NEGATIVE mg/dL (NEGATIVE) 12/11/16 07:40 Urine Blood SMALL (NEGATIVE) H 12/11/16 07:40 Urine Nitrate NEGATIVE (NEGATIVE) 12/11/16 07:40 Urine Bilirubin NEGATIVE (NEGATIVE) 12/11/16 07:40 Urine Urobilinogen 0.2 E.U./dL (0.2 - 1.0) 12/11/16 07:40 Ur Leukocyte Esterase NEGATIVE (NEGATIVE) 12/11/16 07:40 Urine RBC 0-2 /hpf (0-5) H 12/11/16 07:40 Urine WBC 0-2 /hpf (0-5) 12/11/16 07:40 Ur Epithelial Cells OCCASIONAL /lpf (FEW) 12/11/16 07:40 Urine Bacteria NONE SEEN /hpf (NONE SEEN) 12/11/16 07:40 Levetiracetam 42.0 ug/mL (10.0-40.0) H 12/10/16 21:19 Anti-Mitochondrial Ab 5.5 Units (0.0-20.0) 12/16/16 09:05 Hepatitis A IgM Ab Negative (Negative) 12/16/16 09:05 Hep Bs Antigen Negative (Negative) 12/16/16 09:05 Hep B Core IgM Ab Negative (Negative) 12/16/16 09:05 Hepatitis C Antibody <0.1 s/co ratio (0.0-0.9) 12/16/16 09:05 Blood Type AB POSITIVE 12/19/16 11:18 Antibody Screen NEGATIVE 12/19/16 11:18 Crossmatch See Detail 12/19/16 11:18 - Physical Exam Vitals and I&O: Vital Signs Temp 97.3 F 12/21/16 12:00 Pulse 81 12/21/16 12:00 Resp 18 12/21/16 12:00 BP 98/48 12/21/16 12:00 Pulse Ox 100 12/21/16 12:00 Intake & Output 12/20/16 12/21/16 12/21/16 18:59 06:59 18:59 Intake Total 95.5 250 Output Total 300 Balance 95.5 -50 Weight (lbs) 43.908 kg Intake: Intake, IV Amount 95.5 100 MISC Injection 2 vial In 95.5 100 Sodium Chloride 0.9% 100 ml @ 10 mls/hr IV Q10H [facility] Rx#:[id number] Oral 150 Output: Urine 300 Other: # Voids 1 # Bowel Movements 2 Stool Characteristics Soft Soft Active Medications: Current Medications Acetaminophen/Hydrocodone Bitart ([place] 5mg/325mg) 1 tab PO Q6H PRN PRN Reason: Pain (Moderate) Stop: 02/18/17 20:32 Last Admin: 12/20/16 20:57 Dose: 1 tab Epoetin Marv (Epogen) 10,000 units SUBQ MWF [facility] Stop: 02/17/17 08:59 Last Admin: 12/19/16 09:17 Dose: Not Given Hydromorphone HCl (Dilaudid) 1 mg IVP Q4HR PRN PRN Reason: Pain (Severe) Stop: 02/18/17 22:21 Last Admin: 12/21/16 11:12 Dose: 1 mg Sodium Chloride (Nacl 0.9%) 1,000 mls @ 50 mls/hr IV .Q20H [facility] Stop: 02/13/17 16:17 Last Admin: 12/20/16 05:46 Dose: 50 mls/hr Miscellaneous 2 vial/ Sodium (Chloride) 100 mls @ 10 mls/hr IV Q10H [facility] Stop: 02/17/17 12:59 Last Admin: 12/21/16 02:55 Dose: 10 mls/hr Insulin Aspart (Novolog Insulin Sliding Scale) 0 units SUBQ ACHS [facility] PRN Reason: Protocol Stop: 02/09/17 07:29 Last Admin: 12/21/16 11:21 Dose: Not Given Lactobacillus Rhamnosus (Culturelle) 1 each PO DAILY [facility] Stop: 02/15/17 08:59 Last Admin: 12/21/16 08:57 Dose: 1 each Levetiracetam (Keppra) 500 mg PO BID [facility] Stop: 02/09/17 08:59 Last Admin: 12/21/16 08:57 Dose: 500 mg Miscellaneous (Zosyn Iv Per Pharmacy) 1 ea MC PRN PRN PRN Reason: PROTOCOL Stop: 02/09/17 04:59 Miscellaneous (Probiotic Screen) 1 ea MC PRN PRN PRN Reason: PROTOCOL Stop: 02/14/17 13:13 Miscellaneous (Clinical Monitoring) 1 ea MC DAILY PRN PRN Reason: RENAL Stop: 02/19/17 11:34 Ondansetron HCl (Zofran) 4 mg IV Q6HR PRN PRN Reason: Nausea / Vomiting Stop: 02/09/17 01:22 Sitagliptin Phosphate (Januvia) 25 mg PO DAILY [facility] Stop: 02/10/17 08:59 Last Admin: 12/21/16 08:55 Dose: 25 mg General: Alert, Oriented x3, Cooperative, No acute distress HEENT: Atraumatic, PERRLA, EOMI, Mucous membr. moist/pink Neck: Supple Cardiovascular: Regular rate, Normal S1, Normal S2 Lungs: Clear to auscultation Abdomen: Bowel sounds, Soft Extremities: Other (No edema. R arm shunt has bruits) Psych/Mental Status: Mood NL - Procedures Procedures: Procedures Procedure Code Date ABDOMEN SURGERY PROCEDURE 42275 10/21/16 BLOOD TRANSFUSION SERVICE 76723 12/11/16 DESTRUCTION OF STOMACH, PYLORUS, ENDO [id number] 12/11/16 DILATION OF COMMON BILE DUCT, ENDO [id number] 12/11/16 EGD BIOPSY SINGLE/MULTIPLE 58058 02/20/16 EGD CONTROL BLEEDING ANY 11786 12/11/16 ENDO CHOLANGIOPANCREATOGRAPH 63262 12/11/16 EXCISION OF DUODENUM, ENDO, DIAGN [id number] 02/20/16 EXCISION OF STOMACH, PYLORUS, ENDO, DIAGN 5MK93GO 02/20/16 INTRODUCTION OF OTHER THERAPEUTIC SUBSTANCE INTO UP GI, ENDO 9Z1K2LB 12/11/16 INTRODUCTION OF SERUM/TOX/VACCINE INTO MUSCLE, PERC APPROACH 2V7656A 11/05/16 PERFORMANCE OF URINARY FILTRATION, MULTIPLE 9C5S84A 10/21/16 PERFORMANCE OF URINARY FILTRATION, SINGLE 4Z0E46B 11/05/16 RELEASE GREATER OMENTUM, OPEN APPROACH 3PWC1LB 10/21/16 RELEASE LIVER, OPEN APPROACH [id number] 10/21/16 REMOVAL OF GALLBLADDER 39097 10/21/16 RESECTION OF GALLBLADDER, OPEN APPROACH [id number] 10/21/16 TRANSFUSE NONAUT FROZEN PLASMA IN PERIPH VEIN, PERC [id number] 12/11/16 TRANSFUSE NONAUT RED BLOOD CELLS IN PERIPH VEIN, PERC 45236S4 11/05/16 UPPR GI SCOPE W/SUBMUC INJ [id number] 12/11/16 Assessment/Plan - Assessment Assessment: 1. ESRD. 2. GIB 3. DM 4. HTN 5. Chronic decreased hearing. Pt has hearing aid. - Plan Plan: + Continue HD support + On meds for DM + Pt had transfusion. GI on consult. Nutritional Asmnt/Malnutr-PDOC - Dietary Evaluation Malnutrition Findings (Please click <Entered> for more info): Nutritional Asmnt/Malnutrition Start: 12/12/16 14: 00 Text: Status: Complete Freq: Document 12/12/16 14:00 [facility] (Rec: 12/12/16 14:10 [facility] [id number]) Nutritional Asmnt/Malnutrition Patient General Information Nutritional Screening High Risk Screening Diagnosis Common bile duct dilation Pertinent Medical Hx/Surgical Hx HTN, DM, ESRD on dialysis, seizures, cholecystectomy Subjective Information Pt is a 31-year-old male admitted with chief complaint of right sided abdominal pain. RD attempted visit twice but pt was sound asleep on both occasions. Pt appears to have a small body frame but no signs of muscle or fat depletion. IBW calculated with consideration of small body frame. Per ER report, pt has had vomiting and diarrhea for several days; no current reports of GI distress. Current Diet Order/ Nutrition Support Clear liquid Patient / S.O Can Pertinent Medications D5-0.45 ns, Dilaudid, Piperacillin, Januvia Pertinent Labs (12/10) Na 133L, Glucose 185H, LDL Cholesterol 30L. (12/12) Na 131L, K 5.5H, BUN 59H, Creatinine 8.4H, Total Bilirubin 3.8H, AST 330H, ALT 340H, Alkaline Phosphatase 522H, Amylase 127H Nutritional Hx/Data Height 1.57 m Height (Calculated Centimeters) 157.5 Current Weight (lbs) 47.174 kg Weight (Calculated Kilograms) 47.2 Weight (Calculated Grams) 79243.6 Usual body Weight (lbs) 104 % Usual Body Weight 100 [place] Body Weight 106 % [place] Body Weight 98 Recent Weight Change No Weight Status Approriate GI Symptoms GI Symptoms Vomitting Diarrhea Food Allergies No Skin Integrity/Comment: Rohit 21. Skin intact. Estimated Nutritional Goals BEE in Kcals: Using Current wt Calories/Kcals/Kg Based on current wt 47.2 kg with consideration of dialysis Kcals Calculated 2199-8776 kcals/day (30-35 kcals/kg) Protein: Using Current wt Protein g/kg: Based on current wt 47.2 kg with consideration of dialysis Protein Calculated 57-71 gm/day (1.2-1.5 gm/kg) Fluid: ml Per MD/DO Nutritional Problem 1. Problem Problem Inadequate energy/protein intake related to Etiology altered GI function with vomiting and diarrhea as evidenced by Signs/Symptoms: need for clear liquid diet. Malnutrition Alert Protein-Calorie Malnutrition N/A Malnutrition Related to Morbid Obesity Malnutrition related to morbid obesity No Intervention/Recommendation Recommendations by RD Increase Calorie Intake Protein supplementation Comments 1. Recommend Boost Breeze TID with clear liquid diet to promote nutritional intake. Encourage oral intake. 2. Advance as tolerated to renal diet with Novosource Renal BID. Expected Outcomes/Goals Expected Outcomes/Goals Have pt meet at least 75% of estimated nutritional needs with acceptable tolerance. Physician Parameters for PEM Normal Weight % 90% - 110% (Normal) Body Mass Index (BMI) 18 - 24 (Mild) Serum Albumin (g/dl) 3.5 - 5.0 (Normal)
[2016-12-21] MEDS: Epoetin Alfa 20000 Units/mL Vial SUBQ SCH (15:00)
[2016-12-21 16:17] LABS: HEMOGLOBIN 6.6 gm/dL (13.2-17.3)
[2016-12-21 21:36] LABS: HEMATOCRIT 25.4 % (39.0-49.0); HEMOGLOBIN 8.7 gm/dL (13.2-17.3)
[2016-12-22] MEDS: HYDROmorphone 1 mg/mL 1mL Syr IVP PRN ×6 (00:43→21:49)
[2016-12-22] MEDS: INSULIN ASPART SLIDING SCALE 100 UNITS/ML UNIT SUBQ SCH ×3 (06:31→21:32)
[2016-12-22 06:35] LABS: % BASOPHILS 1.6 % (0.0-2.0); % EOSINOPHILS 5.4 % (0.0-5.0); % LYMPHOCYTES 26.2 % (20.0-50.0); % NEUTROPHILS 58.8 % (40.0-80.0); HEMATOCRIT 24.1 % (39.0-49.0); HEMOGLOBIN 8.3 gm/dL (13.2-17.3); MEAN CELL VOLUME 87.1 fl (80-99); MEAN CORPUSCULAR HEMOGLOBIN 29.9 pg (26.0-30.0); MEAN CORPUSCULAR HGB CONC 34.4 pg (28.0-36.0); MEAN PLATELET VOLUME 7.8 fl; NEUTROPHILE ABSOLUTE 3.3 Th/cmm (1.8-8.0); PLATELET COUNT 129 Th/cmm (150-400); RED BLOOD COUNT 2.77 Mil/cmm (4.30-5.70); RED CELL DISTRIBUTION WIDTH 14.1 % (11.5-20.0); WHITE BLOOD COUNT 5.6 Th/cmm (4.8-10.8)
[2016-12-22 07:46] LABS: ALB/GLOB RATIO 1.3 (1.0-1.8); ANION GAP 9.5 (7.0-16.0); BILIRUBIN,TOTAL 1.7 mg/dL (0.3-1.0); BUN/CREATININE RATIO 4.1; CALCIUM SERUM 8.6 mg/dL (8.6-10.3); CARBON DIOXIDE 23.5 mEq/L (21.0-31.0)
[2016-12-22 08:22] LABS: CREATININE - SERUM 5.1 mg/dL (0.7-1.3)
[2016-12-22] MEDS: Lactobacillus Rhamnosus 10 Billion CFU Capsule PO SCH (09:19)
--- NOTE | 2016-12-22 10:26 | General Progress Note ---
Subjective - Review of Systems Subjective: Patient was seen and examined. Patient denies chest pain, shortness of breath, palpitation, dizziness, nausea, vomiting, headache, fever, chills. Objective - Results Result Diagrams: 12/22/16 06:25 12/22/16 06:25 Recent Labs: Laboratory Last Values WBC 5.6 Th/cmm (4.8-10.8) 12/22/16 06:25 RBC 2.77 Mil/cmm (4.30-5.70) L 12/22/16 06:25 Hgb 8.3 gm/dL (13.2-17.3) L 12/22/16 06:25 Hct 24.1 % (39.0-49.0) L 12/22/16 06:25 MCV 87.1 fl (80-99) 12/22/16 06:25 MCH 29.9 pg (26.0-30.0) 12/22/16 06:25 MCHC Differential 34.4 pg (28.0-36.0) 12/22/16 06:25 RDW 14.1 % (11.5-20.0) 12/22/16 06:25 Plt Count 129 Th/cmm (150-400) L 12/22/16 06:25 MPV 7.8 fl 12/22/16 06:25 Neutrophils % 58.8 % (40.0-80.0) 12/22/16 06:25 Band Neutrophils % 2 % (0-10) 12/21/16 06:46 Lymphocytes % 26.2 % (20.0-50.0) 12/22/16 06:25 Monocytes % 8.0 % (2.0-10.0) 12/22/16 06:25 Eosinophils % 5.4 % (0.0-5.0) H 12/22/16 06:25 Basophils % 1.6 % (0.0-2.0) 12/22/16 06:25 Neutrophils (Manual) 57 % (40-80) 12/21/16 06:46 Lymphocytes 31 % (20-50) 12/21/16 06:46 Monocytes 6 % (2-10) 12/21/16 06:46 Eosinophils 3 % (0-5) 12/21/16 06:46 Basophils 1 % (0-3) 12/15/16 05:49 Atypical Lymphocytes 1 % 12/21/16 06:46 Platelet Estimate DECREASED PLATELETS (NORMAL) 12/21/16 06:46 Platelet Morphology NORMAL (NORMAL) 12/21/16 06:46 Anisocytosis 1+ 12/21/16 06:46 RBC Morph Micro Appear ABNORMAL (NORMAL) 12/21/16 06:46 PT 11.5 SECONDS (9.5-11.5) 12/20/16 08:50 INR 1.10 (0.5-1.4) 12/20/16 08:50 PTT (Actin FS) 23.8 SECONDS (26.0-38.0) L 12/20/16 08:50 Sodium 136 mEq/L (136-145) 12/22/16 06:25 Potassium 3.0 mEq/L (3.5-5.1) L 12/22/16 06:25 Chloride 106 mEq/L (98-107) 12/22/16 06:25 Carbon Dioxide 23.5 mEq/L (21.0-31.0) 12/22/16 06:25 Anion Gap 9.5 (7.0-16.0) 12/22/16 06:25 BUN 21 mg/dL (7-25) 12/22/16 06:25 Creatinine 5.1 mg/dL (0.7-1.3) H* 12/22/16 06:25 Est GFR ( Amer) 17.0 ml/min (>90) 12/22/16 06:25 Est GFR (Non-Af Amer) 14.0 ml/min 12/22/16 06:25 BUN/Creatinine Ratio 4.1 12/22/16 06:25 Glucose 123 mg/dL (70-105) H 12/22/16 06:25 POC Glucose 110 MG/DL (70 - 105) H 12/22/16 05:32 Hemoglobin A1c % 5.0 % (4.0-6.0) 12/10/16 21:19 Calcium 8.6 mg/dL (8.6-10.3) 12/22/16 06:25 Iron 143 ug/dL (38-169) 12/16/16 09:05 TIBC 168 ug/dL (250-450) L 12/16/16 09:05 Iron Saturation 85 % (15-55) H 12/16/16 09:05 Unsaturated IBC 25 ug/dL (111-343) L 12/16/16 09:05 Ferritin 1578 ng/mL (30-400) H 12/16/16 09:05 Total Bilirubin 1.7 mg/dL (0.3-1.0) H 12/22/16 06:25 Direct Bilirubin 5.13 mg/dL (0.0-0.2) H 12/12/16 06:30 AST 43 U/L (13-39) H 12/22/16 06:25 ALT 50 U/L (7-52) 12/22/16 06:25 Alkaline Phosphatase 225 U/L (34-104) H 12/22/16 06:25 Troponin I < 0.01 ng/mL (0.01-0.05) L 12/10/16 21:19 Total Protein 5.4 gm/dL (6.0-8.3) L 12/22/16 06:25 Albumin 3.0 gm/dL (4.2-5.5) L 12/22/16 06:25 Globulin 2.4 gm/dL 12/22/16 06:25 Albumin/Globulin Ratio 1.3 (1.0-1.8) 12/22/16 06:25 Ceruloplasmin 20.5 mg/dL (16.0-31.0) 12/16/16 09:05 Triglycerides 46 mg/dL (<150) 12/10/16 21:19 Cholesterol 122 mg/dL (<200) 12/10/16 21:19 LDL Cholesterol Direct 30 mg/dL (75-193) L 12/10/16 21:19 HDL Cholesterol 71 mg/dL (23-92) 12/10/16 21:19 Amylase 107 U/L (29-103) H 12/15/16 05:49 Lipase 48 U/L (11-82) 12/15/16 05:49 TSH 6.49 uIU/ml (0.34-5.60) H 12/10/16 21:19 Urine Source CLEAN C 12/11/16 07:40 Urine Color YELLOW 12/11/16 07:40 Urine Clarity H (CLEAR) 12/11/16 07:40 Urine pH 7.0 (4.6 - 8.0) 12/11/16 07:40 Ur Specific [place] 1.010 (1.005-1.030) 12/11/16 07:40 Urine Protein 100 mg/dL (NEGATIVE) H 12/11/16 07:40 Urine Glucose (UA) 250 mg/dL (NEGATIVE) H 12/11/16 07:40 Urine Ketones NEGATIVE mg/dL (NEGATIVE) 12/11/16 07:40 Urine Blood SMALL (NEGATIVE) H 12/11/16 07:40 Urine Nitrate NEGATIVE (NEGATIVE) 12/11/16 07:40 Urine Bilirubin NEGATIVE (NEGATIVE) 12/11/16 07:40 Urine Urobilinogen 0.2 E.U./dL (0.2 - 1.0) 12/11/16 07:40 Ur Leukocyte Esterase NEGATIVE (NEGATIVE) 12/11/16 07:40 Urine RBC 0-2 /hpf (0-5) H 12/11/16 07:40 Urine WBC 0-2 /hpf (0-5) 12/11/16 07:40 Ur Epithelial Cells OCCASIONAL /lpf (FEW) 12/11/16 07:40 Urine Bacteria NONE SEEN /hpf (NONE SEEN) 12/11/16 07:40 Levetiracetam 42.0 ug/mL (10.0-40.0) H 12/10/16 21:19 Anti-Mitochondrial Ab 5.5 Units (0.0-20.0) 12/16/16 09:05 Hepatitis A IgM Ab Negative (Negative) 12/16/16 09:05 Hep Bs Antigen Negative (Negative) 12/16/16 09:05 Hep B Core IgM Ab Negative (Negative) 12/16/16 09:05 Hepatitis C Antibody <0.1 s/co ratio (0.0-0.9) 12/16/16 09:05 Blood Type AB POSITIVE 12/19/16 11:18 Antibody Screen NEGATIVE 12/19/16 11:18 Crossmatch See Detail 12/19/16 11:18 - Physical Exam Vitals and I&O: Vital Signs Temp 97.8 F 12/22/16 04:00 Pulse 88 12/22/16 04:00 Resp 18 12/22/16 08:01 BP 108/51 12/22/16 04:00 Pulse Ox 95 12/22/16 04:00 Intake & Output 12/21/16 12/22/16 12/22/16 18:59 06:59 18:59 Intake Total 100 240 Balance 100 240 Weight (lbs) 48.166 kg Intake: Intake, IV Amount 100 MISC Injection 2 vial In 100 Sodium Chloride 0.9% 100 ml @ 10 mls/hr IV Q10H [facility] Rx#:[id number] Oral 240 Other: # Voids 2 # Bowel Movements 2 Stool Characteristics Soft Soft Soft Active Medications: Current Medications Acetaminophen/Hydrocodone Bitart ([place] 5mg/325mg) 1 tab PO Q6H PRN PRN Reason: Pain (Moderate) Stop: 02/18/17 20:32 Last Admin: 12/20/16 20:57 Dose: 1 tab Epoetin Marv (Epogen) 10,000 units SUBQ MWF [facility] Stop: 02/17/17 08:59 Last Admin: 12/21/16 15:00 Dose: 10,000 units Hydromorphone HCl (Dilaudid) 1 mg IVP Q4HR PRN PRN Reason: Pain (Severe) Stop: 02/18/17 22:21 Last Admin: 12/22/16 09:20 Dose: 1 mg Sodium Chloride (Nacl 0.9%) 1,000 mls @ 50 mls/hr IV .Q20H [facility] Stop: 02/13/17 16:17 Last Admin: 12/20/16 05:46 Dose: 50 mls/hr Miscellaneous 2 vial/ Sodium (Chloride) 100 mls @ 10 mls/hr IV Q10H [facility] Stop: 02/17/17 12:59 Last Admin: 12/21/16 15:13 Dose: 10 mls/hr Insulin Aspart (Novolog Insulin Sliding Scale) 0 units SUBQ ACHS [facility] PRN Reason: Protocol Stop: 02/09/17 07:29 Last Admin: 12/22/16 06:31 Dose: Not Given Lactobacillus Rhamnosus (Culturelle) 1 each PO DAILY [facility] Stop: 02/15/17 08:59 Last Admin: 12/22/16 09:19 Dose: 1 each Levetiracetam (Keppra) 500 mg PO BID [facility] Stop: 02/09/17 08:59 Last Admin: 12/22/16 09:20 Dose: 500 mg Miscellaneous (Zosyn Iv Per Pharmacy) 1 ea PRN PRN PRN Reason: PROTOCOL Stop: 02/09/17 04:59 Miscellaneous (Probiotic Screen) 1 ea MC PRN PRN PRN Reason: PROTOCOL Stop: 02/14/17 13:13 Miscellaneous (Clinical Monitoring) 1 ea MC DAILY PRN PRN Reason: RENAL Stop: 02/19/17 11:34 Ondansetron HCl (Zofran) 4 mg IV Q6HR PRN PRN Reason: Nausea / Vomiting Stop: 02/09/17 01:22 Sitagliptin Phosphate (Januvia) 25 mg PO DAILY [facility] Stop: 02/10/17 08:59 Last Admin: 12/22/16 09:20 Dose: 25 mg General: Alert, Oriented x3, Cooperative, No acute distress HEENT: Atraumatic, PERRLA, EOMI, Mucous membr. moist/pink Neck: Supple Cardiovascular: Regular rate, Normal S1, Normal S2 Lungs: Clear to auscultation Abdomen: Bowel sounds, Soft Extremities: Other (No edema. R arm shunt has bruits) Psych/Mental Status: Mood NL - Procedures Procedures: Procedures Procedure Code Date ABDOMEN SURGERY PROCEDURE 47532 10/21/16 BLOOD TRANSFUSION SERVICE 63442 12/11/16 DESTRUCTION OF STOMACH, PYLORUS, ENDO [id number] 12/11/16 DILATION OF COMMON BILE DUCT, ENDO [id number] 12/11/16 EGD BIOPSY SINGLE/MULTIPLE 65990 02/20/16 EGD CONTROL BLEEDING ANY 72177 12/11/16 ENDO CHOLANGIOPANCREATOGRAPH 40826 12/11/16 EXCISION OF DUODENUM, ENDO, DIAGN [id number] 02/20/16 EXCISION OF STOMACH, PYLORUS, ENDO, DIAGN [id number] 02/20/16 INTRODUCTION OF OTHER THERAPEUTIC SUBSTANCE INTO UP GI, ENDO [id number] 12/11/16 INTRODUCTION OF SERUM/TOX/VACCINE INTO MUSCLE, PERC APPROACH [id number] 11/05/16 PERFORMANCE OF URINARY FILTRATION, MULTIPLE [id number] 10/21/16 PERFORMANCE OF URINARY FILTRATION, SINGLE 6G8J69V 11/05/16 RELEASE GREATER OMENTUM, OPEN APPROACH [id number] 10/21/16 RELEASE LIVER, OPEN APPROACH [id number] 10/21/16 REMOVAL OF GALLBLADDER 70719 10/21/16 RESECTION OF GALLBLADDER, OPEN APPROACH [id number] 10/21/16 TRANSFUSE NONAUT FROZEN PLASMA IN PERIPH VEIN, PERC 25044D2 12/11/16 TRANSFUSE NONAUT RED BLOOD CELLS IN PERIPH VEIN, PERC 48871S0 11/05/16 UPPR GI SCOPE W/SUBMUC INJ 78029 12/11/16 Assessment/Plan - Assessment Assessment: Obstructive jaundice S/p ERCP clincally improving. end-stage renal disease on hemodialysis. Diabetes mellitus Seizure disorder Recuurent GI bleed after ERCP bleeding from post sphincterotomy site as per GI patient is still oozing S/P cautery and local injection hemogram is stable. Questionable chronic liver disease and hepatitis panel is negative further work up out patient. Diffuse abdominal pain pain seeking Vs Real pain. Status post exploratory laparotomy for cholelithiasis with cholecystectomy a few weeks ago Bilateral hearing loss. - Plan Plan: Stable for discharge if its ok with GI. Hemodialysis as schedule. Care plan reviewed and discussed with staff. Nutritional Asmnt/Malnutr-PDOC - Dietary Evaluation Malnutrition Findings (Please click <Entered> for more info): Nutritional Asmnt/Malnutrition Start: 12/12/16 14: 00 Text: Status: Complete Freq: Document 12/12/16 14:00 [facility] (Rec: 12/12/16 14:10 [facility] [email or web address]) Nutritional Asmnt/Malnutrition Patient General Information Nutritional Screening High Risk Screening Diagnosis Common bile duct dilation Pertinent Medical Hx/Surgical Hx HTN, DM, ESRD on dialysis, seizures, cholecystectomy Subjective Information Pt is a 31-year-old male admitted with chief complaint of right sided abdominal pain. RD attempted visit twice but pt was sound asleep on both occasions. Pt appears to have a small body frame but no signs of muscle or fat depletion. IBW calculated with consideration of small body frame. Per ER report, pt has had vomiting and diarrhea for several days; no current reports of GI distress. Current Diet Order/ Nutrition Support Clear liquid Patient / S.O Can Pertinent Medications D5-0.45 ns, Dilaudid, Piperacillin, Januvia Pertinent Labs (12/10) Na 133L, Glucose 185H, LDL Cholesterol 30L. (12/12) Na 131L, K 5.5H, BUN 59H, Creatinine 8.4H, Total Bilirubin 3.8H, AST 330H, ALT 340H, Alkaline Phosphatase 522H, Amylase 127H Nutritional Hx/Data Height 1.57 m Height (Calculated Centimeters) 157.5 Current Weight (lbs) 47.174 kg Weight (Calculated Kilograms) 47.2 Weight (Calculated Grams) 20105.6 Usual body Weight (lbs) 104 % Usual Body Weight 100 [place] Body Weight 106 % [place] Body Weight 98 Recent Weight Change No Weight Status Approriate GI Symptoms GI Symptoms Vomitting Diarrhea Food Allergies No Skin Integrity/Comment: Rohit 21. Skin intact. Estimated Nutritional Goals BEE in Kcals: Using Current wt Calories/Kcals/Kg Based on current wt 47.2 kg with consideration of dialysis Kcals Calculated 7111-4967 kcals/day (30-35 kcals/kg) Protein: Using Current wt Protein g/kg: Based on current wt 47.2 kg with consideration of dialysis Protein Calculated 57-71 gm/day (1.2-1.5 gm/kg) Fluid: ml Per MD/DO Nutritional Problem 1. Problem Problem Inadequate energy/protein intake related to Etiology altered GI function with vomiting and diarrhea as evidenced by Signs/Symptoms: need for clear liquid diet. Malnutrition Alert Protein-Calorie Malnutrition N/A Malnutrition Related to Morbid Obesity Malnutrition related to morbid obesity No Intervention/Recommendation Recommendations by RD Increase Calorie Intake Protein supplementation Comments 1. Recommend Boost Breeze TID with clear liquid diet to promote nutritional intake. Encourage oral intake. 2. Advance as tolerated to renal diet with Novosource Renal BID. Expected Outcomes/Goals Expected Outcomes/Goals Have pt meet at least 75% of estimated nutritional needs with acceptable tolerance. Physician Parameters for PEM Normal Weight % 90% - 110% (Normal) Body Mass Index (BMI) 18 - 24 (Mild) Serum Albumin (g/dl) 3.5 - 5.0 (Normal)
[2016-12-22] MEDS: SODIUM CHLORIDE 0.9% IV SCH (13:33)
[2016-12-22] MEDS: ESOMEPRAZOLE IV SCH (13:33)
[2016-12-22 14:25] LABS: % LYMPHOCYTES 31.2 % (20.0-50.0); WHITE BLOOD COUNT 5.1 Th/cmm (4.8-10.8)
[2016-12-22 14:37] LABS: % BASOPHILS 2.1 % (0.0-2.0); % EOSINOPHILS 6.8 % (0.0-5.0); % MONOCYTES 8.3 % (2.0-10.0); % NEUTROPHILS 51.6 % (40.0-80.0); HEMOGLOBIN 8.1 gm/dL (13.2-17.3); MEAN CELL VOLUME 88.8 fl (80-99); MEAN CORPUSCULAR HEMOGLOBIN 30.3 pg (26.0-30.0); MEAN CORPUSCULAR HGB CONC 34.1 pg (28.0-36.0); MEAN PLATELET VOLUME 7.9 fl; NEUTROPHILE ABSOLUTE 2.7 Th/cmm (1.8-8.0); PLATELET COUNT 128 Th/cmm (150-400); RED BLOOD COUNT 2.68 Mil/cmm (4.30-5.70); RED CELL DISTRIBUTION WIDTH 14.1 % (11.5-20.0)
[2016-12-22 14:42] LABS: HEMATOCRIT 24.1 % (39.0-49.0)
[2016-12-22] MEDS: Sodium Chloride 0.9% 1,000 ML IV SCH (16:02)
[2016-12-23] MEDS: ESOMEPRAZOLE IV SCH ×2 (02:24→12:40)
[2016-12-23] MEDS: SODIUM CHLORIDE 0.9% IV SCH ×2 (02:24→12:40)
[2016-12-23] MEDS: HYDROmorphone 1 mg/mL 1mL Syr IVP PRN ×3 (02:25→12:29)
[2016-12-23] MEDS: INSULIN ASPART SLIDING SCALE 100 UNITS/ML UNIT SUBQ SCH ×2 (06:36→12:31)
--- NOTE | 2016-12-23 09:17 | General Progress Note ---
Subjective - Review of Systems Subjective: Patient was seen and examined. Patient denies chest pain, shortness of breath, palpitation, dizziness, nausea, vomiting, headache, fever, chills. Objective - Results Result Diagrams: 12/22/16 14:19 12/22/16 06:25 Recent Labs: Laboratory Last Values WBC 5.1 Th/cmm (4.8-10.8) 12/22/16 14:19 RBC 2.68 Mil/cmm (4.30-5.70) L 12/22/16 14:19 Hgb 8.1 gm/dL (13.2-17.3) L 12/22/16 14:19 Hct 24.1 % (39.0-49.0) L 12/22/16 14:19 MCV 88.8 fl (80-99) 12/22/16 14:19 MCH 30.3 pg (26.0-30.0) H 12/22/16 14:19 MCHC Differential 34.1 pg (28.0-36.0) 12/22/16 14:19 RDW 14.1 % (11.5-20.0) 12/22/16 14:19 Plt Count 128 Th/cmm (150-400) L 12/22/16 14:19 MPV 7.9 fl 12/22/16 14:19 Neutrophils % 51.6 % (40.0-80.0) 12/22/16 14:19 Band Neutrophils % 2 % (0-10) 12/21/16 06:46 Lymphocytes % 31.2 % (20.0-50.0) 12/22/16 14:19 Monocytes % 8.3 % (2.0-10.0) 12/22/16 14:19 Eosinophils % 6.8 % (0.0-5.0) H 12/22/16 14:19 Basophils % 2.1 % (0.0-2.0) H 12/22/16 14:19 Neutrophils (Manual) 57 % (40-80) 12/21/16 06:46 Lymphocytes 31 % (20-50) 12/21/16 06:46 Monocytes 6 % (2-10) 12/21/16 06:46 Eosinophils 3 % (0-5) 12/21/16 06:46 Basophils 1 % (0-3) 12/15/16 05:49 Atypical Lymphocytes 1 % 12/21/16 06:46 Platelet Estimate DECREASED PLATELETS (NORMAL) 12/21/16 06:46 Platelet Morphology NORMAL (NORMAL) 12/21/16 06:46 Anisocytosis 1+ 12/21/16 06:46 RBC Morph Micro Appear ABNORMAL (NORMAL) 12/21/16 06:46 PT 11.5 SECONDS (9.5-11.5) 12/20/16 08:50 INR 1.10 (0.5-1.4) 12/20/16 08:50 PTT (Actin FS) 23.8 SECONDS (26.0-38.0) L 12/20/16 08:50 Sodium 136 mEq/L (136-145) 12/22/16 06:25 Potassium 3.0 mEq/L (3.5-5.1) L 12/22/16 06:25 Chloride 106 mEq/L (98-107) 12/22/16 06:25 Carbon Dioxide 23.5 mEq/L (21.0-31.0) 12/22/16 06:25 Anion Gap 9.5 (7.0-16.0) 12/22/16 06:25 BUN 21 mg/dL (7-25) 12/22/16 06:25 Creatinine 5.1 mg/dL (0.7-1.3) H* 12/22/16 06:25 Est GFR ( Amer) 17.0 ml/min (>90) 12/22/16 06:25 Est GFR (Non-Af Amer) 14.0 ml/min 12/22/16 06:25 BUN/Creatinine Ratio 4.1 12/22/16 06:25 Glucose 123 mg/dL (70-105) H 12/22/16 06:25 POC Glucose 113 MG/DL (70 - 105) H 12/23/16 05:45 Hemoglobin A1c % 5.0 % (4.0-6.0) 12/10/16 21:19 Calcium 8.6 mg/dL (8.6-10.3) 12/22/16 06:25 Iron 143 ug/dL (38-169) 12/16/16 09:05 TIBC 168 ug/dL (250-450) L 12/16/16 09:05 Iron Saturation 85 % (15-55) H 12/16/16 09:05 Unsaturated IBC 25 ug/dL (111-343) L 12/16/16 09:05 Ferritin 1578 ng/mL (30-400) H 12/16/16 09:05 Total Bilirubin 1.7 mg/dL (0.3-1.0) H 12/22/16 06:25 Direct Bilirubin 5.13 mg/dL (0.0-0.2) H 12/12/16 06:30 AST 43 U/L (13-39) H 12/22/16 06:25 ALT 50 U/L (7-52) 12/22/16 06:25 Alkaline Phosphatase 225 U/L (34-104) H 12/22/16 06:25 Troponin I < 0.01 ng/mL (0.01-0.05) L 12/10/16 21:19 Total Protein 5.4 gm/dL (6.0-8.3) L 12/22/16 06:25 Albumin 3.0 gm/dL (4.2-5.5) L 12/22/16 06:25 Globulin 2.4 gm/dL 12/22/16 06:25 Albumin/Globulin Ratio 1.3 (1.0-1.8) 12/22/16 06:25 Ceruloplasmin 20.5 mg/dL (16.0-31.0) 12/16/16 09:05 Triglycerides 46 mg/dL (<150) 12/10/16 21:19 Cholesterol 122 mg/dL (<200) 12/10/16 21:19 LDL Cholesterol Direct 30 mg/dL (75-193) L 12/10/16 21:19 HDL Cholesterol 71 mg/dL (23-92) 12/10/16 21:19 Amylase 107 U/L (29-103) H 12/15/16 05:49 Lipase 48 U/L (11-82) 12/15/16 05:49 TSH 6.49 uIU/ml (0.34-5.60) H 12/10/16 21:19 Urine Source CLEAN C 12/11/16 07:40 Urine Color YELLOW 12/11/16 07:40 Urine Clarity H (CLEAR) 12/11/16 07:40 Urine pH 7.0 (4.6 - 8.0) 12/11/16 07:40 Ur Specific [place] 1.010 (1.005-1.030) 12/11/16 07:40 Urine Protein 100 mg/dL (NEGATIVE) H 12/11/16 07:40 Urine Glucose (UA) 250 mg/dL (NEGATIVE) H 12/11/16 07:40 Urine Ketones NEGATIVE mg/dL (NEGATIVE) 12/11/16 07:40 Urine Blood SMALL (NEGATIVE) H 12/11/16 07:40 Urine Nitrate NEGATIVE (NEGATIVE) 12/11/16 07:40 Urine Bilirubin NEGATIVE (NEGATIVE) 12/11/16 07:40 Urine Urobilinogen 0.2 E.U./dL (0.2 - 1.0) 12/11/16 07:40 Ur Leukocyte Esterase NEGATIVE (NEGATIVE) 12/11/16 07:40 Urine RBC 0-2 /hpf (0-5) H 12/11/16 07:40 Urine WBC 0-2 /hpf (0-5) 12/11/16 07:40 Ur Epithelial Cells OCCASIONAL /lpf (FEW) 12/11/16 07:40 Urine Bacteria NONE SEEN /hpf (NONE SEEN) 12/11/16 07:40 Levetiracetam 42.0 ug/mL (10.0-40.0) H 12/10/16 21:19 Anti-Mitochondrial Ab 5.5 Units (0.0-20.0) 12/16/16 09:05 Hepatitis A IgM Ab Negative (Negative) 12/16/16 09:05 Hep Bs Antigen Negative (Negative) 12/16/16 09:05 Hep B Core IgM Ab Negative (Negative) 12/16/16 09:05 Hepatitis C Antibody <0.1 s/co ratio (0.0-0.9) 12/16/16 09:05 Blood Type AB POSITIVE 12/19/16 11:18 Antibody Screen NEGATIVE 12/19/16 11:18 Crossmatch See Detail 12/19/16 11:18 - Physical Exam Vitals and I&O: Vital Signs Temp 98.0 F 12/23/16 04:00 Pulse 86 12/23/16 04:00 Resp 18 12/23/16 04:00 BP 98/69 12/23/16 04:00 Pulse Ox 98 12/23/16 04:00 Intake & Output 12/22/16 12/23/16 12/23/16 18:59 06:59 18:59 Intake Total 500 495.000 Balance 500 495.000 Weight (lbs) 48.081 kg 48.137 kg Intake: Intake, IV Amount 255.000 MISC Injection 2 vial In 100.000 Sodium Chloride 0.9% 100 ml @ 10 mls/hr IV Q10H [facility] Rx#:[id number] Sodium Chloride 0.9% 1, 155 000 ml @ 50 mls/hr IV . Q20H [facility] Rx#:[id number] Oral 500 240 Other: # Voids 3 1 # Bowel Movements 2 1 Stool Characteristics Soft Soft Active Medications: Current Medications Acetaminophen/Hydrocodone Bitart ([place] 5mg/325mg) 1 tab PO Q6H PRN PRN Reason: Pain (Moderate) Stop: 02/18/17 20:32 Last Admin: 12/20/16 20:57 Dose: 1 tab Epoetin Marv (Epogen) 10,000 units SUBQ MWF [facility] Stop: 02/17/17 08:59 Last Admin: 12/21/16 15:00 Dose: 10,000 units Hydromorphone HCl (Dilaudid) 1 mg IVP Q4HR PRN PRN Reason: Pain (Severe) Stop: 02/18/17 22:21 Last Admin: 12/23/16 08:24 Dose: 1 mg Sodium Chloride (Nacl 0.9%) 1,000 mls @ 50 mls/hr IV .Q20H [facility] Stop: 02/13/17 16:17 Last Infusion: 12/22/16 19:08 Dose: 50 mls/hr Miscellaneous 2 vial/ Sodium (Chloride) 100 mls @ 10 mls/hr IV Q10H [facility] Stop: 02/17/17 12:59 Last Admin: 12/23/16 02:24 Dose: 10 mls/hr Insulin Aspart (Novolog Insulin Sliding Scale) 0 units SUBQ ACHS [facility] PRN Reason: Protocol Stop: 02/09/17 07:29 Last Admin: 12/23/16 06:36 Dose: Not Given Lactobacillus Rhamnosus (Culturelle) 1 each PO DAILY [facility] Stop: 02/15/17 08:59 Last Admin: 12/22/16 09:19 Dose: 1 each Levetiracetam (Keppra) 500 mg PO BID [facility] Stop: 02/09/17 08:59 Last Admin: 12/22/16 17:34 Dose: 500 mg Miscellaneous (Zosyn Iv Per Pharmacy) 1 ea PRN PRN PRN Reason: PROTOCOL Stop: 02/09/17 04:59 Miscellaneous (Probiotic Screen) 1 ea PRN PRN PRN Reason: PROTOCOL Stop: 02/14/17 13:13 Miscellaneous (Clinical Monitoring) 1 ea DAILY PRN PRN Reason: RENAL Stop: 02/19/17 11:34 Ondansetron HCl (Zofran) 4 mg IV Q6HR PRN PRN Reason: Nausea / Vomiting Stop: 02/09/17 01:22 Sitagliptin Phosphate (Januvia) 25 mg PO DAILY [facility] Stop: 02/10/17 08:59 Last Admin: 12/22/16 09:20 Dose: 25 mg General: Alert, Oriented x3, Cooperative, No acute distress HEENT: Atraumatic, PERRLA, EOMI, Mucous membr. moist/pink Neck: Supple Cardiovascular: Regular rate, Normal S1, Normal S2 Lungs: Clear to auscultation Abdomen: Bowel sounds, Soft Extremities: Other (No edema. R arm shunt has bruits) Psych/Mental Status: Mood NL - Procedures Procedures: Procedures Procedure Code Date ABDOMEN SURGERY PROCEDURE 18059 10/21/16 BLOOD TRANSFUSION SERVICE 04818 12/11/16 DESTRUCTION OF STOMACH, PYLORUS, ENDO [id number] 12/11/16 DILATION OF COMMON BILE DUCT, ENDO [id number] 12/11/16 EGD BIOPSY SINGLE/MULTIPLE 06092 02/20/16 EGD CONTROL BLEEDING ANY 38343 12/11/16 ENDO CHOLANGIOPANCREATOGRAPH 66350 12/11/16 EXCISION OF DUODENUM, ENDO, DIAGN [id number] 02/20/16 EXCISION OF STOMACH, PYLORUS, ENDO, DIAGN [id number] 02/20/16 INTRODUCTION OF OTHER THERAPEUTIC SUBSTANCE INTO UP GI, ENDO [id number] 12/11/16 INTRODUCTION OF SERUM/TOX/VACCINE INTO MUSCLE, PERC APPROACH [id number] 11/05/16 PERFORMANCE OF URINARY FILTRATION, MULTIPLE [id number] 10/21/16 PERFORMANCE OF URINARY FILTRATION, SINGLE [id number] 11/05/16 RELEASE GREATER OMENTUM, OPEN APPROACH [id number] 10/21/16 RELEASE LIVER, OPEN APPROACH [id number] 10/21/16 REMOVAL OF GALLBLADDER 71464 10/21/16 RESECTION OF GALLBLADDER, OPEN APPROACH [id number] 10/21/16 TRANSFUSE NONAUT FROZEN PLASMA IN PERIPH VEIN, PERC 90152M8 12/11/16 TRANSFUSE NONAUT RED BLOOD CELLS IN PERIPH VEIN, PERC 64928B5 11/05/16 UPPR GI SCOPE W/SUBMUC INJ 72303 12/11/16 Assessment/Plan - Assessment Assessment: Obstructive jaundice S/p ERCP clincally improving. end-stage renal disease on hemodialysis. Diabetes mellitus Seizure disorder Recuurent GI bleed after ERCP bleeding from post sphincterotomy site as per GI patient is still oozing S/P cautery and local injection hemogram is stable. Questionable chronic liver disease and hepatitis panel is negative further work up out patient. Diffuse abdominal pain pain seeking Vs Real pain. Status post exploratory laparotomy for cholelithiasis with cholecystectomy a few weeks ago Bilateral hearing loss. - Plan Plan: Stable for discharge if its ok with GI. Hemodialysis as schedule. Care plan reviewed and discussed with staff. Nutritional Asmnt/Malnutr-PDOC - Dietary Evaluation Malnutrition Findings (Please click <Entered> for more info): Nutritional Asmnt/Malnutrition Start: 12/12/16 14: 00 Text: Status: Complete Freq: Document 12/12/16 14:00 [facility] (Rec: 12/12/16 14:10 [facility] [id number]) Nutritional Asmnt/Malnutrition Patient General Information Nutritional Screening High Risk Screening Diagnosis Common bile duct dilation Pertinent Medical Hx/Surgical Hx HTN, DM, ESRD on dialysis, seizures, cholecystectomy Subjective Information Pt is a 31-year-old male admitted with chief complaint of right sided abdominal pain. RD attempted visit twice but pt was sound asleep on both occasions. Pt appears to have a small body frame but no signs of muscle or fat depletion. IBW calculated with consideration of small body frame. Per ER report, pt has had vomiting and diarrhea for several days; no current reports of GI distress. Current Diet Order/ Nutrition Support Clear liquid Patient / S.O Can Pertinent Medications D5-0.45 ns, Dilaudid, Piperacillin, Januvia Pertinent Labs (12/10) Na 133L, Glucose 185H, LDL Cholesterol 30L. (12/12) Na 131L, K 5.5H, BUN 59H, Creatinine 8.4H, Total Bilirubin 3.8H, AST 330H, ALT 340H, Alkaline Phosphatase 522H, Amylase 127H Nutritional Hx/Data Height 1.57 m Height (Calculated Centimeters) 157.5 Current Weight (lbs) 47.174 kg Weight (Calculated Kilograms) 47.2 Weight (Calculated Grams) 31272.6 Usual body Weight (lbs) 104 % Usual Body Weight 100 [place] Body Weight 106 % [place] Body Weight 98 Recent Weight Change No Weight Status Approriate GI Symptoms GI Symptoms Vomitting Diarrhea Food Allergies No Skin Integrity/Comment: Rohit 21. Skin intact. Estimated Nutritional Goals BEE in Kcals: Using Current wt Calories/Kcals/Kg Based on current wt 47.2 kg with consideration of dialysis Kcals Calculated [id number] kcals/day (30-35 kcals/kg) Protein: Using Current wt Protein g/kg: Based on current wt 47.2 kg with consideration of dialysis Protein Calculated 57-71 gm/day (1.2-1.5 gm/kg) Fluid: ml Per MD/DO Nutritional Problem 1. Problem Problem Inadequate energy/protein intake related to Etiology altered GI function with vomiting and diarrhea as evidenced by Signs/Symptoms: need for clear liquid diet. Malnutrition Alert Protein-Calorie Malnutrition N/A Malnutrition Related to Morbid Obesity Malnutrition related to morbid obesity No Intervention/Recommendation Recommendations by RD Increase Calorie Intake Protein supplementation Comments 1. Recommend Boost Breeze TID with clear liquid diet to promote nutritional intake. Encourage oral intake. 2. Advance as tolerated to renal diet with Novosource Renal BID. Expected Outcomes/Goals Expected Outcomes/Goals Have pt meet at least 75% of estimated nutritional needs with acceptable tolerance. Physician Parameters for PEM Normal Weight % 90% - 110% (Normal) Body Mass Index (BMI) 18 - 24 (Mild) Serum Albumin (g/dl) 3.5 - 5.0 (Normal)
[2016-12-23 09:51] LABS: % BASOPHILS 0.5 % (0.0-2.0); % EOSINOPHILS 7.9 % (0.0-5.0); % LYMPHOCYTES 28.2 % (20.0-50.0); % MONOCYTES 8.2 % (2.0-10.0); % NEUTROPHILS 55.2 % (40.0-80.0); HEMATOCRIT 24.9 % (39.0-49.0); HEMOGLOBIN 8.5 gm/dL (13.2-17.3); MEAN CELL VOLUME 91.8 fl (80-99); MEAN CORPUSCULAR HEMOGLOBIN 31.3 pg (26.0-30.0); MEAN CORPUSCULAR HGB CONC 34.1 pg (28.0-36.0); MEAN PLATELET VOLUME 8.2 fl; NEUTROPHILE ABSOLUTE 3.1 Th/cmm (1.8-8.0); PLATELET COUNT 132 Th/cmm (150-400); RED BLOOD COUNT 2.71 Mil/cmm (4.30-5.70); RED CELL DISTRIBUTION WIDTH 14.1 % (11.5-20.0); WHITE BLOOD COUNT 5.7 Th/cmm (4.8-10.8)
[2016-12-23] MEDS: Lactobacillus Rhamnosus 10 Billion CFU Capsule PO SCH (10:17)
[2016-12-23 10:26] LABS: ANION GAP 13.6 (7.0-16.0); BUN/CREATININE RATIO 3.9; CALCIUM SERUM 8.4 mg/dL (8.6-10.3); CARBON DIOXIDE 16.9 mEq/L (21.0-31.0); POTASSIUM SERUM 3.5 mEq/L (3.5-5.1)
[2016-12-23 10:31] LABS: CREATININE - SERUM 6.6 mg/dL (0.7-1.3)
[2016-12-23] MEDS: Sodium Chloride 0.9% 1,000 ML IV SCH (12:37)
--- NOTE | 2016-12-23 13:24 | General Progress Note ---
Subjective - Review of Systems Service Date: 12/23/16 Events since last encounter: No new events overnight. Subjective: Denies CP, SOB. Objective - Results Result Diagrams: 12/23/16 09:48 12/23/16 09:48 Recent Labs: Laboratory Last Values WBC 5.7 Th/cmm (4.8-10.8) 12/23/16 09:48 RBC 2.71 Mil/cmm (4.30-5.70) L 12/23/16 09:48 Hgb 8.5 gm/dL (13.2-17.3) L 12/23/16 09:48 Hct 24.9 % (39.0-49.0) L 12/23/16 09:48 MCV 91.8 fl (80-99) 12/23/16 09:48 MCH 31.3 pg (26.0-30.0) H 12/23/16 09:48 MCHC Differential 34.1 pg (28.0-36.0) 12/23/16 09:48 RDW 14.1 % (11.5-20.0) 12/23/16 09:48 Plt Count 132 Th/cmm (150-400) L 12/23/16 09:48 MPV 8.2 fl 12/23/16 09:48 Neutrophils % 55.2 % (40.0-80.0) 12/23/16 09:48 Band Neutrophils % 2 % (0-10) 12/21/16 06:46 Lymphocytes % 28.2 % (20.0-50.0) 12/23/16 09:48 Monocytes % 8.2 % (2.0-10.0) 12/23/16 09:48 Eosinophils % 7.9 % (0.0-5.0) H 12/23/16 09:48 Basophils % 0.5 % (0.0-2.0) 12/23/16 09:48 Neutrophils (Manual) 57 % (40-80) 12/21/16 06:46 Lymphocytes 31 % (20-50) 12/21/16 06:46 Monocytes 6 % (2-10) 12/21/16 06:46 Eosinophils 3 % (0-5) 12/21/16 06:46 Basophils 1 % (0-3) 12/15/16 05:49 Atypical Lymphocytes 1 % 12/21/16 06:46 Platelet Estimate DECREASED PLATELETS (NORMAL) 12/21/16 06:46 Platelet Morphology NORMAL (NORMAL) 12/21/16 06:46 Anisocytosis 1+ 12/21/16 06:46 RBC Morph Micro Appear ABNORMAL (NORMAL) 12/21/16 06:46 PT 11.5 SECONDS (9.5-11.5) 12/20/16 08:50 INR 1.10 (0.5-1.4) 12/20/16 08:50 PTT (Actin FS) 23.8 SECONDS (26.0-38.0) L 12/20/16 08:50 Sodium 135 mEq/L (136-145) L 12/23/16 09:48 Potassium 3.5 mEq/L (3.5-5.1) 12/23/16 09:48 Chloride 108 mEq/L (98-107) H 12/23/16 09:48 Carbon Dioxide 16.9 mEq/L (21.0-31.0) L 12/23/16 09:48 Anion Gap 13.6 (7.0-16.0) 12/23/16 09:48 BUN 26 mg/dL (7-25) H 12/23/16 09:48 Creatinine 6.6 mg/dL (0.7-1.3) H* 12/23/16 09:48 Est GFR ( Amer) 12.6 ml/min (>90) 12/23/16 09:48 Est GFR (Non-Af Amer) 10.4 ml/min 12/23/16 09:48 BUN/Creatinine Ratio 3.9 12/23/16 09:48 Glucose 124 mg/dL (70-105) H 12/23/16 09:48 POC Glucose 113 MG/DL (70 - 105) H 12/23/16 05:45 Hemoglobin A1c % 5.0 % (4.0-6.0) 12/10/16 21:19 Calcium 8.4 mg/dL (8.6-10.3) L 12/23/16 09:48 Iron 143 ug/dL (38-169) 12/16/16 09:05 TIBC 168 ug/dL (250-450) L 12/16/16 09:05 Iron Saturation 85 % (15-55) H 12/16/16 09:05 Unsaturated IBC 25 ug/dL (111-343) L 12/16/16 09:05 Ferritin 1578 ng/mL (30-400) H 12/16/16 09:05 Total Bilirubin 1.7 mg/dL (0.3-1.0) H 12/22/16 06:25 Direct Bilirubin 5.13 mg/dL (0.0-0.2) H 12/12/16 06:30 AST 43 U/L (13-39) H 12/22/16 06:25 ALT 50 U/L (7-52) 12/22/16 06:25 Alkaline Phosphatase 225 U/L (34-104) H 12/22/16 06:25 Troponin I < 0.01 ng/mL (0.01-0.05) L 12/10/16 21:19 Total Protein 5.4 gm/dL (6.0-8.3) L 12/22/16 06:25 Albumin 3.0 gm/dL (4.2-5.5) L 12/22/16 06:25 Globulin 2.4 gm/dL 12/22/16 06:25 Albumin/Globulin Ratio 1.3 (1.0-1.8) 12/22/16 06:25 Ceruloplasmin 20.5 mg/dL (16.0-31.0) 12/16/16 09:05 Triglycerides 46 mg/dL (<150) 12/10/16 21:19 Cholesterol 122 mg/dL (<200) 12/10/16 21:19 LDL Cholesterol Direct 30 mg/dL (75-193) L 12/10/16 21:19 HDL Cholesterol 71 mg/dL (23-92) 12/10/16 21:19 Amylase 107 U/L (29-103) H 12/15/16 05:49 Lipase 48 U/L (11-82) 12/15/16 05:49 TSH 6.49 uIU/ml (0.34-5.60) H 12/10/16 21:19 Urine Source CLEAN C 12/11/16 07:40 Urine Color YELLOW 12/11/16 07:40 Urine Clarity H (CLEAR) 12/11/16 07:40 Urine pH 7.0 (4.6 - 8.0) 12/11/16 07:40 Ur Specific [place] 1.010 (1.005-1.030) 12/11/16 07:40 Urine Protein 100 mg/dL (NEGATIVE) H 12/11/16 07:40 Urine Glucose (UA) 250 mg/dL (NEGATIVE) H 12/11/16 07:40 Urine Ketones NEGATIVE mg/dL (NEGATIVE) 12/11/16 07:40 Urine Blood SMALL (NEGATIVE) H 12/11/16 07:40 Urine Nitrate NEGATIVE (NEGATIVE) 12/11/16 07:40 Urine Bilirubin NEGATIVE (NEGATIVE) 12/11/16 07:40 Urine Urobilinogen 0.2 E.U./dL (0.2 - 1.0) 12/11/16 07:40 Ur Leukocyte Esterase NEGATIVE (NEGATIVE) 12/11/16 07:40 Urine RBC 0-2 /hpf (0-5) H 12/11/16 07:40 Urine WBC 0-2 /hpf (0-5) 12/11/16 07:40 Ur Epithelial Cells OCCASIONAL /lpf (FEW) 12/11/16 07:40 Urine Bacteria NONE SEEN /hpf (NONE SEEN) 12/11/16 07:40 Levetiracetam 42.0 ug/mL (10.0-40.0) H 12/10/16 21:19 Anti-Mitochondrial Ab 5.5 Units (0.0-20.0) 12/16/16 09:05 Hepatitis A IgM Ab Negative (Negative) 12/16/16 09:05 Hep Bs Antigen Negative (Negative) 12/16/16 09:05 Hep B Core IgM Ab Negative (Negative) 12/16/16 09:05 Hepatitis C Antibody <0.1 s/co ratio (0.0-0.9) 12/16/16 09:05 Blood Type AB POSITIVE 12/19/16 11:18 Antibody Screen NEGATIVE 12/19/16 11:18 Crossmatch See Detail 12/19/16 11:18 - Physical Exam Vitals and I&O: Vital Signs Temp 98.0 F 12/23/16 04:00 Pulse 86 12/23/16 04:00 Resp 18 12/23/16 04:00 BP 98/69 12/23/16 04:00 Pulse Ox 98 12/23/16 04:00 Intake & Output 12/22/16 12/23/16 12/23/16 18:59 06:59 18:59 Intake Total 500 495.000 945 Balance 500 495.000 945 Weight (lbs) 48.081 kg 48.137 kg Intake: Intake, IV Amount 255.000 945 MISC Injection 2 vial In 100.000 100 Sodium Chloride 0.9% 100 ml @ 10 mls/hr IV Q10H [facility] Rx#:[id number] Sodium Chloride 0.9% 1, 155 845 000 ml @ 50 mls/hr IV . Q20H [facility] Rx#:[id number] Oral 500 240 Other: # Voids 3 1 # Bowel Movements 2 1 Stool Characteristics Soft Soft Active Medications: Current Medications Acetaminophen/Hydrocodone Bitart ([place] 5mg/325mg) 1 tab PO Q6H PRN PRN Reason: Pain (Moderate) Stop: 02/18/17 20:32 Last Admin: 12/20/16 20:57 Dose: 1 tab Epoetin Marv (Epogen) 10,000 units SUBQ MWF [facility] Stop: 02/17/17 08:59 Last Admin: 12/21/16 15:00 Dose: 10,000 units Folic Acid (Folate) 1 mg PO DAILY [facility] Stop: 02/22/17 08:59 Hydromorphone HCl (Dilaudid) 1 mg IVP Q4HR PRN PRN Reason: Pain (Severe) Stop: 02/18/17 22:21 Last Admin: 12/23/16 12:29 Dose: 1 mg Sodium Chloride (Nacl 0.9%) 1,000 mls @ 50 mls/hr IV .Q20H [facility] Stop: 02/13/17 16:17 Last Admin: 12/23/16 12:37 Dose: 50 mls/hr Miscellaneous 2 vial/ Sodium (Chloride) 100 mls @ 10 mls/hr IV Q10H [facility] Stop: 02/17/17 12:59 Last Admin: 12/23/16 12:40 Dose: 10 mls/hr Insulin Aspart (Novolog Insulin Sliding Scale) 0 units SUBQ ACHS [facility] PRN Reason: Protocol Stop: 02/09/17 07:29 Last Admin: 12/23/16 12:31 Dose: Not Given Lactobacillus Rhamnosus (Culturelle) 1 each PO DAILY [facility] Stop: 02/15/17 08:59 Last Admin: 12/23/16 10:17 Dose: 1 each Levetiracetam (Keppra) 500 mg PO BID [facility] Stop: 02/09/17 08:59 Last Admin: 12/23/16 10:18 Dose: 500 mg Miscellaneous (Zosyn Iv Per Pharmacy) 1 ea MC PRN PRN PRN Reason: PROTOCOL Stop: 02/09/17 04:59 Miscellaneous (Probiotic Screen) 1 ea MC PRN PRN PRN Reason: PROTOCOL Stop: 02/14/17 13:13 Miscellaneous (Clinical Monitoring) 1 ea MC DAILY PRN PRN Reason: RENAL Stop: 02/19/17 11:34 Ondansetron HCl (Zofran) 4 mg IV Q6HR PRN PRN Reason: Nausea / Vomiting Stop: 02/09/17 01:22 Sitagliptin Phosphate (Januvia) 25 mg PO DAILY [facility] Stop: 02/10/17 08:59 Last Admin: 12/23/16 10:17 Dose: 25 mg Vitamin B Complex/Vitamin C (Vitamin B Complex W/C) 1 tab PO DAILY [facility] Stop: 02/22/17 08:59 General: Alert, Oriented x3, Cooperative, No acute distress HEENT: Atraumatic, PERRLA, EOMI, Mucous membr. moist/pink, Other (Hard of hearing. Wears hearing aids.) Neck: Supple Cardiovascular: Regular rate, Normal S1, Normal S2 Lungs: Clear to auscultation Abdomen: Bowel sounds, Soft Extremities: Other (No edema. R arm shunt has bruits) Psych/Mental Status: Mood NL - Procedures Procedures: Procedures Procedure Code Date ABDOMEN SURGERY PROCEDURE 75302 10/21/16 BLOOD TRANSFUSION SERVICE 87480 12/11/16 DESTRUCTION OF STOMACH, PYLORUS, ENDO [id number] 12/11/16 DILATION OF COMMON BILE DUCT, ENDO [id number] 12/11/16 EGD BIOPSY SINGLE/MULTIPLE 10169 02/20/16 EGD CONTROL BLEEDING ANY 30741 12/11/16 ENDO CHOLANGIOPANCREATOGRAPH 83880 12/11/16 EXCISION OF DUODENUM, ENDO, DIAGN [id number] 02/20/16 EXCISION OF STOMACH, PYLORUS, ENDO, DIAGN [id number] 02/20/16 INTRODUCTION OF OTHER THERAPEUTIC SUBSTANCE INTO UP GI, ENDO [id number] 12/11/16 INTRODUCTION OF SERUM/TOX/VACCINE INTO MUSCLE, PERC APPROACH [id number] 11/05/16 PERFORMANCE OF URINARY FILTRATION, MULTIPLE [id number] 10/21/16 PERFORMANCE OF URINARY FILTRATION, SINGLE [id number] 11/05/16 RELEASE GREATER OMENTUM, OPEN APPROACH [id number] 10/21/16 RELEASE LIVER, OPEN APPROACH [id number] 10/21/16 REMOVAL OF GALLBLADDER 97685 10/21/16 RESECTION OF GALLBLADDER, OPEN APPROACH [id number] 10/21/16 TRANSFUSE NONAUT FROZEN PLASMA IN PERIPH VEIN, PERC [id number] 12/11/16 TRANSFUSE NONAUT RED BLOOD CELLS IN PERIPH VEIN, PERC [id number] 11/05/16 UPPR GI SCOPE W/SUBMUC INJ 71291 12/11/16 Assessment/Plan - Assessment Assessment: 1. ESRD. Continue HD 3 times a week as scheduled. Resume Vit B/C complex and folate. 2. GIB. Monitor H/H. On epogen. 3. DM. Continue monitoring glc and meds. 4. HTN. Continue meds. 5. Chronic decreased hearing. Pt has hearing aid. - Plan Plan: + Continue HD support + On meds for DM + Pt had transfusion. GI on consult. Nutritional Asmnt/Malnutr-PDOC - Dietary Evaluation Malnutrition Findings (Please click <Entered> for more info): Nutritional Asmnt/Malnutrition Start: 12/12/16 14: 00 Text: Status: Complete Freq: Document 12/12/16 14:00 [facility] (Rec: 12/12/16 14:10 [facility] [id number]) Nutritional Asmnt/Malnutrition Patient General Information Nutritional Screening High Risk Screening Diagnosis Common bile duct dilation Pertinent Medical Hx/Surgical Hx HTN, DM, ESRD on dialysis, seizures, cholecystectomy Subjective Information Pt is a 31-year-old male admitted with chief complaint of right sided abdominal pain. RD attempted visit twice but pt was sound asleep on both occasions. Pt appears to have a small body frame but no signs of muscle or fat depletion. IBW calculated with consideration of small body frame. Per ER report, pt has had vomiting and diarrhea for several days; no current reports of GI distress. Current Diet Order/ Nutrition Support Clear liquid Patient / S.O Can Pertinent Medications D5-0.45 ns, Dilaudid, Piperacillin, Januvia Pertinent Labs (12/10) Na 133L, Glucose 185H, LDL Cholesterol 30L. (12/12) Na 131L, K 5.5H, BUN 59H, Creatinine 8.4H, Total Bilirubin 3.8H, AST 330H, ALT 340H, Alkaline Phosphatase 522H, Amylase 127H Nutritional Hx/Data Height 1.57 m Height (Calculated Centimeters) 157.5 Current Weight (lbs) 47.174 kg Weight (Calculated Kilograms) 47.2 Weight (Calculated Grams) 86884.6 Usual body Weight (lbs) 104 % Usual Body Weight 100 [place] Body Weight 106 % [place] Body Weight 98 Recent Weight Change No Weight Status Approriate GI Symptoms GI Symptoms Vomitting Diarrhea Food Allergies No Skin Integrity/Comment: Rohit 21. Skin intact. Estimated Nutritional Goals BEE in Kcals: Using Current wt Calories/Kcals/Kg Based on current wt 47.2 kg with consideration of dialysis Kcals Calculated 1271-4911 kcals/day (30-35 kcals/kg) Protein: Using Current wt Protein g/kg: Based on current wt 47.2 kg with consideration of dialysis Protein Calculated 57-71 gm/day (1.2-1.5 gm/kg) Fluid: ml Per MD/DO Nutritional Problem 1. Problem Problem Inadequate energy/protein intake related to Etiology altered GI function with vomiting and diarrhea as evidenced by Signs/Symptoms: need for clear liquid diet. Malnutrition Alert Protein-Calorie Malnutrition N/A Malnutrition Related to Morbid Obesity Malnutrition related to morbid obesity No Intervention/Recommendation Recommendations by RD Increase Calorie Intake Protein supplementation Comments 1. Recommend Boost Breeze TID with clear liquid diet to promote nutritional intake. Encourage oral intake. 2. Advance as tolerated to renal diet with Novosource Renal BID. Expected Outcomes/Goals Expected Outcomes/Goals Have pt meet at least 75% of estimated nutritional needs with acceptable tolerance. Physician Parameters for PEM Normal Weight % 90% - 110% (Normal) Body Mass Index (BMI) 18 - 24 (Mild) Serum Albumin (g/dl) 3.5 - 5.0 (Normal)
[2016-12-23] MEDS: Epoetin Alfa 20000 Units/mL Vial SUBQ SCH (16:51)
[2016-12-24] MEDS ORDERED: Ascorbic Acid/Vit B Complex Tab PO SCH (09:00)
== END 2016-12-23 16:30 | disposition home or self-care (01) ==
LOC: ER 20:30 → MSI 12-11 00:30 → ICU 12-15 18:25 → MSI 12-16 18:53
PROVIDERS: ADMIT Internal Medicine; ATTEND Internal Medicine
PROC: 5A1D60Z (ICD-10-PCS; 2016-12-12)
PROC: 0F798DZ Dilation of Common Bile Duct with Intraluminal Device, Via Natural or Artificial Opening Endoscopic (ICD-10-PCS; principal; 2016-12-13)
PROC: 0FC98ZZ Extirpation of Matter from Common Bile Duct, Via Natural or Artificial Opening Endoscopic (ICD-10-PCS; 2016-12-13)
PROC: 3E0G8GC Introduction of Other Therapeutic Substance into Upper GI, Via Natural or Artificial Opening Endoscopic (ICD-10-PCS; 2016-12-15)
PROC: 0W3P8ZZ Control Bleeding in Gastrointestinal Tract, Via Natural or Artificial Opening Endoscopic (ICD-10-PCS; 2016-12-15)
PROC: 30233K1 Transfusion of Nonautologous Frozen Plasma into Peripheral Vein, Percutaneous Approach (ICD-10-PCS; 2016-12-16)
PROC: 30233R1 Transfusion of Nonautologous Platelets into Peripheral Vein, Percutaneous Approach (ICD-10-PCS; 2016-12-16)
PROC: 30233L1 Transfusion of Nonautologous Fresh Plasma into Peripheral Vein, Percutaneous Approach (ICD-10-PCS; 2016-12-16)
PROC: 0W3P8ZZ Control Bleeding in Gastrointestinal Tract, Via Natural or Artificial Opening Endoscopic (ICD-10-PCS; 2016-12-20)
PROC: 30233N1 Transfusion of Nonautologous Red Blood Cells into Peripheral Vein, Percutaneous Approach (ICD-10-PCS; 2016-12-21)
DX: K80.51 Calculus of bile duct without cholangitis or cholecystitis with obstruction (principal); N18.6 End stage renal disease; E11.22 Type 2 diabetes mellitus with diabetic chronic kidney disease; I12.0 Hypertensive chronic kidney disease with stage 5 chronic kidney disease or end stage renal disease; D68.9 Coagulation defect, unspecified; I95.9 Hypotension, unspecified; E87.1 Hypo-osmolality and hyponatremia; D69.1 Qualitative platelet defects; G40.909 Epilepsy, unspecified, not intractable, without status epilepticus; D63.1 Anemia in chronic kidney disease; H91.93 Unspecified hearing loss, bilateral; K74.60 Unspecified cirrhosis of liver; D62 Acute posthemorrhagic anemia; K91.840 Postprocedural hemorrhage of a digestive system organ or structure following a digestive system procedure; K52.9 Noninfective gastroenteritis and colitis, unspecified; G31.84 Mild cognitive impairment of uncertain or unknown etiology; E86.1 Hypovolemia; Y83.8 Other surgical procedures as the cause of abnormal reaction of the patient, or of later complication, without mention of misadventure at the time of the procedure; Y92.238 Other place in hospital as the place of occurrence of the external cause; Z79.4 Long term (current) use of insulin; Z94.0 Kidney transplant status; Z99.2 Dependence on renal dialysis; Z90.49 Acquired absence of other specified parts of digestive tract
CPT/HCPCS: 36415-UA; 71010-TC; 74330-TC; 76000-TC; 78226-TC; 80048-TC; 80053-TC; 80061-TC; 80074-90; 80299-90; 81001-TC; 82150-TC; 82248-TC; 82390-90; 82728-90; 82948-90; 83036-90; 83540-90; 83550-90; 83690-TC; 84132-TC; 84443-TC; 84484-TC; 85007-TC; 85014-TC; 85018-TC; 85025-TC; 85027-TC; 85610-TC; 85730-TC; 86255-90; 86850-TC; 86900-TC; 86901-TC; 86922-TC; 93005; 96372; 96374; 96375; A4217; A9537; C9113; J0171; J0885; J1170; J1200; J1815; J1885; J2001; J2250; J2270; J2405; J2543; J2704; J2710; J2920; J7030; J7040; P9016; P9017; P9035; Q9967; X6158; X6258; X7704; Z7506; Z7508; Z7610; Z7610-TC

== ENCOUNTER 2016-12-30 07:05 | Emergency (ER) | payer MEDICAID ==
--- NOTE | 2016-12-30 07:32 | ED Physician Chart ---
Chief Complaint/HPI - Patient Information Date Seen:: 12/30/16 Time Seen:: 07:20 Chief Complaint:: whole body pain History of Present Illness:: THIS IS A 31 YO DIALYSIS PATIENT WHO STATES THAT HE HAS WHOLE BODY PAIN AFTER DIALYSIS THIS AM. HE DENIES VOMITING, DIARRHEA AND WAS RECENTLY HOSPITALIZED FOR COMMON BILE DUCT OBSTRUCTION. HE STATES THAT IN THE HOSPITAL HE WAS GIVEN MORPHINE AND STATES THAT HE HAS BEEN OUT FOR TWO WEEKS BUT CANNOT REMEMBER WHAT HE WAS TAKING FOR PAIN. THE PATIENT'S MOTHER STATES THAT THE PATENT IS HAVING PAIN MEDICATION WITHDRAWAL SYMPTOMS. Allergies:: Allergies Allergy/AdvReac Type Severity Reaction Status Date / Time No Known Allergies Allergy Verified 12/10/16 20:50 Historian:: Patient, Medical Records Review:: Nurse's Note Reviewed Review of Systems - Review of Systems General/Constitutional: No fever, No chills, No weight loss, No weakness, No diaphoresis, No edema, No loss of appetite, Other (WHOLE BODY PAIN) Skin: No skin lesions, No rash, No bruising Head: No headache, No light-headedness Eyes: No loss of vision, No pain, No diplopia ENT: No earache, No nasal drainage, No sore throat, No tinnitus Neck: No neck pain, No swelling, No thyromegaly, No stiffness, No mass noted Cardio Vascular: No chest pain, No palpitations, No PND, No orthopnea, No edema Pulmonary: No SOB, No cough, No sputum, No wheezing GI: No nausea, No vomiting, No diarrhea, Pain, No melena, No hematochezia, No constipation, No hematemesis G/U: No dysuria, No frequency, No hematuria Musculoskeletal: No bone or joint pain, No back pain, No muscle pain Endocrine: No polyuria, No polydipsia Psychiatric: No prior psych history, No depression, No anxiety, No suicidal ideation Hematopoietic: No bruising, No lymphadenopathy Allergic/Immuno: No urticaria, No angioedema Neurological: No syncope, No focal symptoms, No weakness, No paresthesia, No headache, No seizure, No dizziness, No confusion, No vertigo Past Medical History - Past Medical History Obtainable: Yes Past Medical History: HTN, ESRD Family History: None Social History: Non Smoker, No Alcohol, No Drug Use, Single, Lives With Parents Surgical History: Cholecystectomy, other (ACCESS LINE PLACEMENT) Psychiatricy History: None Medication: Reviewed Family Medical History - Family Member Mother History Unknown: Yes Ethnicity: Non- Living Status: Still Living Hx Family Cancer: No Hx Family Coronary Artery Disease: No Hx Family Congestive Heart Failure: No Hx Family Hypertension: No Hx Family Stroke: No Hx Family Diabetes: No Hx Family Seizures: No Hx Family Dementia: No Hx Family AIDS: No Hx Family HIV: No Hx Family COPD: No Hx Family Hepatitis: No Hx Family Psychiatric Problems: No Hx Family Tuberculosis: No Physical Exam - Physical Examination General/Constitutional: Awake, Well-developed, well-nourished, Alert, No distress, GCS 15, Non-toxic appearing, Ambulatory Head: Atraumatic Eyes: Lids, conjuctiva normal, PERRL, EOMI Skin: Nl inspection, No rash, No skin lesions, No ecchymosis, Well hydrated, No lymphadenopathy ENMT: External ears, nose nl, Nasal exam nl, Lips, teeth, gums nl Neck: Nontender, Full ROM w/o pain, No JVD, No nuchal rigidity, No bruit, No mass, No stridor Respiratory: Nl effort/Exclusion, Clear to Auscultation, No Wheeze/Rhonchi/Rales Cardio Vascular: RRR, No murmur, gallop, rubs, NL S1 S2 GI: No organomegaly, No hernia, Normal BS's, Nondistended, No mass/bruits, No McBurney tenderness Other GI comments:: MINIMAL TENDERNESS OF THE EPIGASTRIC AREA OF THE ABDOMEN. : No CVA tenderness Extremities: No tenderness or effusion, Full ROM, normal strength in all extremities, No edema, Normal digits & nails Neuro/Psych: Alert/oriented, DTR's symmetric, Normal sensory exam, Normal motor strength, Judgement/insight normal, Mood normal, Normal gait, No focal deficits Misc: normal gait, Normal back, No paraspinal tenderness Labs/Radiology/EKG Results - Lab Results Results: Abnormal Lab Results 12/30/16 12/30/16 12/30/16 07:30 07:30 07:30 WBC 7.7 D RBC 2.85 L Hgb 8.6 L Hct 25.0 L MCV 87.9 MCH 30.2 H MCHC Differential 34.4 RDW 14.7 Plt Count 241 D MPV 7.5 Neutrophils % 61.1 Lymphocytes % 29.3 Monocytes % 4.2 Eosinophils % 4.9 Basophils % 0.5 PT 10.4 INR 1.00 PTT (Actin FS) 31.3 Sodium Potassium Chloride Carbon Dioxide Anion Gap BUN Creatinine Est GFR ( Amer) Est GFR (Non-Af Amer) BUN/Creatinine Ratio Glucose Calcium Total Bilirubin AST ALT Alkaline Phosphatase Troponin I Total Protein Albumin Globulin Albumin/Globulin Ratio TSH 12/30/16 12/30/16 12/30/16 07:30 07:30 07:30 WBC RBC Hgb Hct MCV MCH MCHC Differential RDW Plt Count MPV Neutrophils % Lymphocytes % Monocytes % Eosinophils % Basophils % PT INR PTT (Actin FS) Sodium 135 L Potassium 4.2 Chloride 101 Carbon Dioxide 26.2 Anion Gap 12.0 BUN 22 Creatinine 4.2 H* Est GFR ( Amer) 21.3 Est GFR (Non-Af Amer) 17.6 BUN/Creatinine Ratio 5.2 Glucose 142 H Calcium 8.9 Total Bilirubin 1.3 H AST 175 H ALT 153 H Alkaline Phosphatase 450 H Troponin I 0.01 Total Protein 6.4 Albumin 3.5 L Globulin 2.9 Albumin/Globulin Ratio 1.2 TSH 3.83 - Radiology Results Results: CHEST X-RAY = NAD - EKG Interpretations EKG Time:: 07:34 Rate & Rhythm: RATE=83 SINUS Assessment - Assessment General Assessment: HYPOXEMIA ELEVATED TROPONIN COPD EXASCERBATION ED Septic Shock - . Is Septic Shock (SBP<90, OR Lactate>4 mmol\L) present?: No Reassessment (Disposition) - Reassessment Reassessment:: COMMON BILE DUCT OBSTRUCTION ESRD
[2016-12-30 07:46] LABS: % BASOPHILS 0.5 % (0.0-2.0); % EOSINOPHILS 4.9 % (0.0-5.0); % LYMPHOCYTES 29.3 % (20.0-50.0); % MONOCYTES 4.2 % (2.0-10.0); % NEUTROPHILS 61.1 % (40.0-80.0); HEMOGLOBIN 8.6 gm/dL (13.2-17.3); MEAN CELL VOLUME 87.9 fl (80-99); MEAN CORPUSCULAR HEMOGLOBIN 30.2 pg (26.0-30.0); MEAN CORPUSCULAR HGB CONC 34.4 pg (28.0-36.0); MEAN PLATELET VOLUME 7.5 fl; NEUTROPHILE ABSOLUTE 4.7 Th/cmm (1.8-8.0); RED BLOOD COUNT 2.85 Mil/cmm (4.30-5.70); RED CELL DISTRIBUTION WIDTH 14.7 % (11.5-20.0)
[2016-12-30 07:49] LABS: PLATELET COUNT 241 Th/cmm (150-400); WHITE BLOOD COUNT 7.7 Th/cmm (4.8-10.8)
[2016-12-30 07:58] LABS: PROTHROMBIN TIME (TEST) 10.4 SECONDS (9.5-11.5)
[2016-12-30 08:00] LABS: ALB/GLOB RATIO 1.2 (1.0-1.8); BILIRUBIN,TOTAL 1.3 mg/dL (0.3-1.0); BUN/CREATININE RATIO 5.2; CALCIUM SERUM 8.9 mg/dL (8.6-10.3); CARBON DIOXIDE 26.2 mEq/L (21.0-31.0); POTASSIUM SERUM 4.2 mEq/L (3.5-5.1)
--- NOTE | 2016-12-30 08:20 | Diagnostic Imaging Report ---
Portable chest x-ray Time: 0 741 History: Shortness of breath Allowing for portable technique the heart size is normal. No focal pulmonary parenchymal processes. No hilar or mediastinal abnormalities. Impression: No acute abnormalities.
[2016-12-30 08:29] LABS: CREATININE - SERUM 4.2 mg/dL (0.7-1.3)
== END 2016-12-30 13:30 | disposition home or self-care (01) ==
LOC: ER 07:05
DX: J44.1 Chronic obstructive pulmonary disease with (acute) exacerbation (principal); R74.8 Abnormal levels of other serum enzymes; I12.0 Hypertensive chronic kidney disease with stage 5 chronic kidney disease or end stage renal disease; N18.6 End stage renal disease
CPT/HCPCS: 99285; 96372; 93005; 71010; 84484; 36415; 84443; 86592; 85025; 85610; 85730; 80053; 87081; 87040 ×2; J2060

== ENCOUNTER 2017-02-04 11:27 | Emergency (ER) | payer MEDICARE, MEDICAID ==
[2017-02-04 12:20] LABS: % BASOPHILS 0.9 % (0.0-2.0); % EOSINOPHILS 0.7 % (0.0-5.0); % LYMPHOCYTES 15.8 % (20.0-50.0); % MONOCYTES 11.6 % (2.0-10.0); MEAN CELL VOLUME 90.1 fl (80-99); MEAN CORPUSCULAR HEMOGLOBIN 30.4 pg (26.0-30.0); MEAN CORPUSCULAR HGB CONC 33.7 pg (28.0-36.0); MEAN PLATELET VOLUME 7.6 fl; NEUTROPHILE ABSOLUTE 5.6 Th/cmm (1.8-8.0); RED BLOOD COUNT 4.09 Mil/cmm (4.30-5.70); RED CELL DISTRIBUTION WIDTH 14.8 % (11.5-20.0); WHITE BLOOD COUNT 7.9 Th/cmm (4.8-10.8)
[2017-02-04 12:23] LABS: HEMATOCRIT 36.8 % (41.0-60); HEMOGLOBIN 12.4 gm/dL (12-16); PLATELET COUNT 138 Th/cmm (150-400)
[2017-02-04 12:33] LABS: ALB/GLOB RATIO 1.4 (1.0-1.8); ANION GAP 15.6 (7.0-16.0); BILIRUBIN,TOTAL 1.7 mg/dL (0.3-1.0); BUN/CREATININE RATIO 7.6; CALCIUM SERUM 9.5 mg/dL (8.6-10.3); CARBON DIOXIDE 20.7 mEq/L (21.0-31.0); POTASSIUM SERUM 4.3 mEq/L (3.5-5.1)
[2017-02-04 12:51] LABS: CREATININE - SERUM 7.4 mg/dL (0.7-1.3)
[2017-02-04] MEDS ORDERED: Morphine Sulfate 4 mg/mL 1mL Syr IM ONE (12:55)
--- NOTE | 2017-02-04 13:01 | ED Physician Chart ---
ED Chief Complaint/HPI - Patient Information Date Seen:: 02/04/17 Time Seen:: 12:35 Chief Complaint:: ABDOMINAL PAIN AND DIARRHEA X 1 WK History of Present Illness:: The patient is a poor historian and has difficulty recalling his past medical history. Additional information obtained from the Patient's mother. Patient states that he has had a headache and severe abdominal pain over the past week. The onset was gradual and has been progressive. The pain is rated as a 10 over 10 in severity and increased by attempting to eat food. The pain is localized to a band extending across the right and left upper quadrants. He is uncertain if the pain radiates to his back. Quality of the pain is stabbing. The patient has had no associated nausea or vomiting. According to the patient's prior admitting physician the patient is drug seeking and has had negative workups for abdominal pain in the past. Patient also is a renal dialysis patient with a [id number] schedule. Allergies:: Allergies Allergy/AdvReac Type Severity Reaction Status Date / Time No Known Allergies Allergy Verified 12/10/16 20:50 Vitals:: Vital Signs - 8 hr 02/04/17 11:33 Temp 99.8 F HR 74 RR 16 BP 136/72 O2 Sat % 99 ED Review of Systems - Review of Systems General/Constitutional: No fever, No chills, Weakness, Diaphoresis, No edema, Loss of appetite Skin: No skin lesions, No rash Head: Headache, Light headed Eyes: No loss of vision, No diplopia ENT: No earache, No sore throat, No tinnitus Neck: No neck pain, No swelling, No thyromegaly, No stiffness, No mass noted Cardio Vascular: No chest pain, No palpitations, No edema Pulmonary: No SOB, No cough, No sputum, No wheezing GI: No nausea, No vomiting, Diarrhea, Pain G/U: No dysuria, No frequency, No hematuria Musculoskeletal: No bone or joint pain, No muscle pain Psychiatric: Other (patient is mentally impaired.) Neurological: No syncope, No focal symptoms, No paresthesia, Headache, Seizure, Dizziness, Confusion, No vertigo ED Past Medical History - Past Medical History Past Medical History: Renal stone, Other (chronic renal failure, seizure disorder. Mentally challenged.) Social History: Non Smoker, No Alcohol, No Drug Use, Single, Lives With Parents Surgical History: Cholecystectomy, other (multiple shunt revisions.) Family Medical History - Family Member Mother History Unknown: Yes Ethnicity: Non- Living Status: Still Living Hx Family Cancer: No Hx Family Coronary Artery Disease: No Hx Family Congestive Heart Failure: No Hx Family Hypertension: No Hx Family Stroke: No Hx Family Diabetes: No Hx Family Seizures: No Hx Family Dementia: No Hx Family AIDS: No Hx Family HIV: No Hx Family COPD: No Hx Family Hepatitis: No Hx Family Psychiatric Problems: No Hx Family Tuberculosis: No ED Physical Exam - Physical Examination General/Constitutional: Ambulatory Other Gen/Cons comments:: Appears to be in moderate distress from his complained of abdominal pain. Awake and alert but unable to provide a reliable history. Head: Atraumatic Eyes: Lids, conjuctiva normal, PERRL, EOMI Other Eyes comments:: Sclerae do not appear to be jaundiced. No nystagmus on lateral gaze. Skin: Nl inspection, No skin lesions, No ecchymosis, Well hydrated, No lymphadenopathy ENMT: External ears, nose nl, Nasal exam nl, Lips, teeth, gums nl, Oropharynx nl , Tonsils nl Neck: Nontender, No JVD, No nuchal rigidity, No mass, No stridor Respiratory: Nl effort/Exclusion, No Wheeze/Rhonchi/Rales Cardio Vascular: No murmur, gallop, rubs, NL S1 S2 Other Cardio Vascular comments:: Adequate pulses all 4 extremities. No peripheral edema. GI: No organomegaly, Normal BS's, No mass/bruits Other GI comments:: Patient has a surgical scar consistent with prior cholecystectomy in the right upper quadrant. The abdomen is mildly distended. Bowel sounds are present and normal. Patient has exquisite tenderness on palpation in the region above the umbilicus extending from the right to the left abdomen. No hepatomegaly or splenomegaly is appreciated. Rectal examination was deferred at my discretion. Stool specimen sent for occult blood and was negative. : No CVA tenderness Extremities: No tenderness or effusion, No edema Other Extremities comments:: Dialysis shunt in the right upper extremity at the level of the elbow. Neuro/Psych: Normal sensory exam, No focal deficits Other Neuro/Psych comments:: Patient has generalized weakness in all 4 extremities. Ambulatory without assistance. Misc: Normal back, No paraspinal tenderness ED Labs/Radiology/EKG Results - Lab Results Results: Laboratory Tests 02/04/17 02/04/17 12:08 12:08 WBC 7.9 RBC 4.09 L Hgb 12.4 D Hct 36.8 L D MCV 90.1 MCH 30.4 H MCHC Differential 33.7 RDW 14.8 Plt Count 138 L D MPV 7.6 Neutrophils % 71.0 Lymphocytes % 15.8 L Monocytes % 11.6 H Eosinophils % 0.7 Basophils % 0.9 Sodium 130 L Potassium 4.3 Chloride 98 Carbon Dioxide 20.7 L Anion Gap 15.6 BUN 56 H Creatinine 7.4 H* Est GFR ( Amer) 11.1 Est GFR (Non-Af Amer) 9.1 BUN/Creatinine Ratio 7.6 Glucose 118 H Calcium 9.5 Total Bilirubin 1.7 H AST 332 H ALT 347 H Alkaline Phosphatase 377 H Total Protein 6.2 Albumin 3.6 L Globulin 2.6 Albumin/Globulin Ratio 1.4 The CBC shows no leukocytosis and a mild anemia with a hemoglobin of 12.4. Patient is mildly hyponatremic with a sodium of 1:30. His bicarbonate is somewhat low at 20.7. His renal function studies are consistent with being on chronic dialysis. Liver function studies are mild to moderately elevated across the spectrum. The LFT's were slightly worse than results from November. Mild elevation of amylase and lipase. CT Scan of the abdomen showed a thickened GB wall. Also evidence of chronic pancreatitis (calsifications in pancreatis. Also with thickening of rectal mucosa. ED Assessment - Assessment General Assessment: CASE SUMMARY: This 31-year-old male has chronic renal failure and is on dialysis. In October of this year the patient had a cholecystectomy and since that time has been seen in the emergency department and admitted for workup of abdominal pain. Dr. Davis has admitted him and says he knowes him well. He further advises that the patient is drug seeking. On exam the patient had tenderness across a band in the upper abdomen. Lab studies showed continued elevation of LFT's. No leukocytosis or anemia. MDM DDX FOR ABDOMINAL PAIN: NOT Bowel perforation based on no free air on CT scan of Abdomen. NO acute bowel obstruction based on ABD CT. NO acute cholecystitis based on history of cholecystectomy. NO Mesenteric ischemia based on lab results and negative CT abdomen. ED Septic Shock - . Is Septic Shock (SBP<90, OR Lactate>4 mmol\L) present?: No - <6hrs of presentation: Vital Signs: Vital Signs - 8 hr 02/04/17 11:33 Temp 99.8 F HR 74 RR 16 BP 136/72 O2 Sat % 99 ED Reassessment (Disposition) - Reassessment Reassessment Condition:: Improved - Diagnosis Diagnosis:: CHRONIC ABDOMINAL PAIN. CHRONIC RENAL FAILURE. MENTALLY MPAIRED. DISCHARGED WITH RX FOR NORCO 7.5/325, DISP #10, 1 q6h prn pain. Do not mix with alcohol or take within 6 [address] of [address] or activities requiring alertness. ED Discharge Plan - Patient Disposition Admit/Discharge/Transfer: PT DISCHARGED HOME Condition at Disposition: Stable Instructions: Hepatitis B, [id number], Hepatitis C, [id number], Kidney Failure, [id number] Additional Instructions: FOLLOW UP W/ PMD AMEYA. RETURN TO EMERGENCY ROOM IF SYMPTOMS WORSEN.
[2017-02-04] MEDS ORDERED: Sodium Chloride 0.9% 2,000 ML IV ONE (14:44)
[2017-02-04] MEDS ORDERED: Morphine Sulfate 4 mg/mL 1mL Syr ONE (15:50)
[2017-02-04 17:37] LABS: AMYLASE SERUM 127 U/L (29-103); LIPASE 104 U/L (11-82)
--- NOTE | 2017-02-05 10:10 | Diagnostic Imaging Report ---
Exam: CT examination of the abdomen pelvis. HISTORY: Abdominal pain blood in stool Total DLP equals 1557 CTDI equals 3.5 Findings: Multiple contiguous thin section of the abdomen pelvis obtained from lower thorax to pubic symphysis without the administration of oral and intravenous contrast material the study correlated with prior CT examination abdomen pelvis of 12/10/2016. The study demonstrates normal aeration of lung parenchyma the bases The liver and spleen are normal. There is evidence for splenomegaly. The stomach is distended with fluid content. Diffuse pancreatic calcifications most likely related to previous inflammatory changes There is evidence of multiple metallic clips the gallbladder fossa with what appears to be cystic structure which might represent seroma small amount of pericholecystic fluid collections noted. Examination with contrast material might be helpful. The kidneys are atrophic bilaterally. There is evidence for right lower quadrant transplant kidney without large staghorn calculus, clinical correlation ultrasound examination of transplanted kidneys recommended for assessment of the function. There is evidence for distention small bowel loops throughout the abdomen consistent with mild ileus. Mild retroperitoneal adenopathy is noted. There is evidence for distention of rectosigmoid junction and rectum with fecal content. Uterine bladder demonstrates thickening of the urinary bladder wall cholecystitis cannot be excluded. Vascular calcifications are noted in the pelvic area. Bony structures demonstrate no evidence for lytic or blastic changes. IMPRESSION: 1. Extensive pancreatic calcifications status post inflammatory changes. 2. Atrophic kidneys, right lower quadrant transplant kidney with a large calculus. There is no evidence of obstructive uropathy or transplant kidney. 3. Distention small bowel loops throughout consistent with ileus 4. Postcholecystectomy changes with the gallbladder fossa cystic structure which might represent a loculated seroma clinical correlation of the examination with contrast material is recommended.
== END 2017-02-04 18:16 | disposition home or self-care (01) ==
LOC: ER 11:27
DX: R10.9 Unspecified abdominal pain (principal); G89.29 Other chronic pain; N18.9 Chronic kidney disease, unspecified; G40.909 Epilepsy, unspecified, not intractable, without status epilepticus
CPT/HCPCS: 36415-UA; 80053-TC; 82150-TC; 82270-TC; 83690-TC; 85025-TC; 93005; 96374; J2270; J7030

== ENCOUNTER 2017-02-20 16:34 | Inpatient (IN) | payer MEDICARE, MEDICAID ==
--- NOTE | 2017-02-20 16:54 | ED Physician Chart ---
ED Chief Complaint/HPI - Patient Information Date Seen:: 02/20/17 Time Seen:: 16:40 Chief Complaint:: Weakness History of Present Illness:: onset x 4 days of weakness, poor appetitie, Abd. Pain, N/V/D; pt denies H/As, S/ T, neck pain, C/P, SOB, flank pain, A/C, fever, chills, or urinary s/s Allergies:: Allergies Allergy/AdvReac Type Severity Reaction Status Date / Time No Known Allergies Allergy Verified 12/10/16 20:50 Historian:: Patient, Family Member Review:: Nurse's Note Reviewed <Parth Khan - Last Filed: 02/20/17 16:48> - Patient Information Allergies:: Allergies Allergy/AdvReac Type Severity Reaction Status Date / Time No Known Allergies Allergy Verified 12/10/16 20:50 Vitals:: Vital Signs - 8 hr 02/20/17 02/20/17 02/20/17 16:59 17:11 18:58 Temp 99.9 F 97.9 F HR 117 117 99 RR 22 21 24 BP 119/75 119/75 119/75 O2 Sat % 99 98 99 02/20/17 19:52 Temp 98.6 F HR 100 RR 19 BP 108/64 O2 Sat % 99 <Shahid Pinto - Last Filed: 02/20/17 20:08> ED Review of Systems - Review of Systems General/Constitutional: No fever, No chills, No weight loss, No weakness, No diaphoresis, No edema, No loss of appetite Skin: No skin lesions, No rash, No bruising Head: No headache, No light-headedness Eyes: No loss of vision, No pain, No diplopia ENT: No earache, No nasal drainage, No sore throat, No tinnitus Neck: No neck pain, No swelling, No thyromegaly, No stiffness, No mass noted Cardio Vascular: No chest pain, No palpitations, No PND, No orthopnea, No edema Pulmonary: No SOB, No cough, No sputum, No wheezing GI: Nausea, Vomiting, Diarrhea, Pain, No melena, No hematochezia, No constipation, No hematemesis G/U: No dysuria, No frequency, No hematuria, No nacturia Musculoskeletal: No bone or joint pain, No back pain, No muscle pain Endocrine: Polyuria, Polydipsia Psychiatric: No prior psych history, No depression, No anxiety, No suicidal ideation Hematopoietic: No bruising, No lymphadenopathy Allergic/Immuno: No urticaria, No angioedema Neurological: No syncope, No focal symptoms, No weakness, No paresthesia, No headache, Seizure, No dizziness, No confusion, No vertigo <AngelicaestebannjParth - Last Filed: 02/20/17 16:48> ED Past Medical History - Past Medical History Obtainable: Yes Past Medical History: DM, ESRD, Seizures Family History: Diabetes Melitus, HTN Social History: Non Smoker, No Alcohol, No Drug Use, Single, Lives With Parents Surgical History: Cholecystectomy, other (Kidney Transplant; AV Fistula Right Arm) Psychiatricy History: None Medication: Reviewed <AngelicaParth valentino - Last Filed: 02/20/17 16:48> Family Medical History - Family Member Mother History Unknown: Yes Ethnicity: Non- Living Status: Still Living Hx Family Cancer: No Hx Family Coronary Artery Disease: No Hx Family Congestive Heart Failure: No Hx Family Hypertension: No Hx Family Stroke: No Hx Family Diabetes: No Hx Family Seizures: No Hx Family Dementia: No Hx Family AIDS: No Hx Family HIV: No Hx Family COPD: No Hx Family Hepatitis: No Hx Family Psychiatric Problems: No Hx Family Tuberculosis: No <AngelicachichoParth - Last Filed: 02/20/17 16:48> ED Physical Exam - Physical Examination General/Constitutional: Awake, Well-developed, well-nourished, Alert, No distress, GCS 15, Non-toxic appearing, Ambulatory Head: Atraumatic Eyes: Lids, conjuctiva normal, PERRL, EOMI Skin: Nl inspection, No rash, No skin lesions, No ecchymosis, Well hydrated, No lymphadenopathy ENMT: External ears, nose nl, Nasal exam nl, Lips, teeth, gums nl Neck: Nontender, Full ROM w/o pain, No JVD, No nuchal rigidity, No bruit, No mass, No stridor Respiratory: Nl effort/Exclusion, Clear to Auscultation, No Wheeze/Rhonchi/Rales Cardio Vascular: RRR, No murmur, gallop, rubs, NL S1 S2 GI: No tenderness/rebounding/guarding, No organomegaly, No hernia, Normal BS's, Nondistended, No mass/bruits, No McBurney tenderness : No CVA tenderness Extremities: No tenderness or effusion, Full ROM, normal strength in all extremities, No edema, Normal digits & nails Neuro/Psych: Alert/oriented, DTR's symmetric, Normal sensory exam, Normal motor strength, Judgement/insight normal, Mood normal, Normal gait, No focal deficits Misc: Normal back, No paraspinal tenderness <Parth Khan - Last Filed: 02/20/17 16:48> ED Labs/Radiology/EKG Results - Lab Results Results: Laboratory Tests 02/20/17 02/20/17 02/20/17 17:15 17:15 17:15 WBC 7.9 RBC 4.22 L Hgb 12.5 Hct 36.9 L MCV 87.4 MCH 29.7 MCHC Differential 33.9 RDW 13.8 Plt Count 110 L D MPV 8.3 Neutrophils % 70.1 Lymphocytes % 21.0 Monocytes % 5.2 Eosinophils % 3.7 Basophils % 0.0 PT 9.7 INR 0.93 Sodium 129 L Potassium 5.0 Chloride 104 Carbon Dioxide 7.7 L* Anion Gap 22.3 H BUN 79 H Creatinine 9.7 H* Est GFR ( Amer) 8.1 Est GFR (Non-Af Amer) 6.7 BUN/Creatinine Ratio 8.1 Glucose 77 Calcium 9.3 Total Bilirubin 0.6 AST 75 H ALT 104 H Alkaline Phosphatase 384 H Creatine Kinase 41 Troponin I B-Natriuretic Peptide Total Protein 7.1 Albumin 3.9 L Globulin 3.2 Albumin/Globulin Ratio 1.2 Triglycerides 100 Cholesterol 115 LDL Cholesterol Direct 34 L HDL Cholesterol 61 Amylase Lipase 02/20/17 02/20/17 02/20/17 17:15 17:15 17:15 WBC RBC Hgb Hct MCV MCH MCHC Differential RDW Plt Count MPV Neutrophils % Lymphocytes % Monocytes % Eosinophils % Basophils % PT INR Sodium Potassium Chloride Carbon Dioxide Anion Gap BUN Creatinine Est GFR ( Amer) Est GFR (Non-Af Amer) BUN/Creatinine Ratio Glucose Calcium Total Bilirubin AST ALT Alkaline Phosphatase Creatine Kinase Troponin I < 0.01 L B-Natriuretic Peptide 114.0 H Total Protein Albumin Globulin Albumin/Globulin Ratio Triglycerides Cholesterol LDL Cholesterol Direct HDL Cholesterol Amylase 170 H Lipase 87 H Laboratory Tests 02/20/17 02/20/17 02/20/17 17:15 17:15 17:15 WBC 7.9 RBC 4.22 L Hgb 12.5 Hct 36.9 L MCV 87.4 MCH 29.7 MCHC Differential 33.9 RDW 13.8 Plt Count 110 L D MPV 8.3 Neutrophils % 70.1 Lymphocytes % 21.0 Monocytes % 5.2 Eosinophils % 3.7 Basophils % 0.0 PT 9.7 INR 0.93 Sodium 129 L Potassium 5.0 Chloride 104 Carbon Dioxide 7.7 L* Anion Gap 22.3 H BUN 79 H Creatinine 9.7 H* Est GFR ( Amer) 8.1 Est GFR (Non-Af Amer) 6.7 BUN/Creatinine Ratio 8.1 Glucose 77 Calcium 9.3 Total Bilirubin 0.6 AST 75 H ALT 104 H Alkaline Phosphatase 384 H Creatine Kinase 41 Troponin I B-Natriuretic Peptide Total Protein 7.1 Albumin 3.9 L Globulin 3.2 Albumin/Globulin Ratio 1.2 Triglycerides 100 Cholesterol 115 LDL Cholesterol Direct 34 L HDL Cholesterol 61 Amylase Lipase 02/20/17 02/20/17 02/20/17 17:15 17:15 17:15 WBC RBC Hgb Hct MCV MCH MCHC Differential RDW Plt Count MPV Neutrophils % Lymphocytes % Monocytes % Eosinophils % Basophils % PT INR Sodium Potassium Chloride Carbon Dioxide Anion Gap BUN Creatinine Est GFR ( Amer) Est GFR (Non-Af Amer) BUN/Creatinine Ratio Glucose Calcium Total Bilirubin AST ALT Alkaline Phosphatase Creatine Kinase Troponin I < 0.01 L B-Natriuretic Peptide 114.0 H Total Protein Albumin Globulin Albumin/Globulin Ratio Triglycerides Cholesterol LDL Cholesterol Direct HDL Cholesterol Amylase 170 H Lipase 87 H <Shahid Pinto - Last Filed: 02/20/17 20:08> ED Septic Shock - . Is Septic Shock (SBP<90, OR Lactate>4 mmol\L) present?: No <Parth Khan - Last Filed: 02/20/17 16:48> - . Is Septic Shock (SBP<90, OR Lactate>4 mmol\L) present?: No - <6hrs of presentation: Vital Signs: Vital Signs - 8 hr 02/20/17 02/20/17 02/20/17 16:59 17:11 18:58 Temp 99.9 F 97.9 F HR 117 117 99 RR 22 21 24 BP 119/75 119/75 119/75 O2 Sat % 99 98 99 02/20/17 19:52 Temp 98.6 F HR 100 RR 19 BP 108/64 O2 Sat % 99 <Shahid Pinto - Last Filed: 02/20/17 20:08> ED Reassessment (Disposition) - Reassessment Reassessment:: pt in stable condition while in ER. pt is NPO CT abdomen pelvis results show RLQ transplanted kidney with stone, no hydronephrosis no free fluid ILEUS distended bladder, wall thickening rectal wall prominent RAD READ - Patient Disposition Discharge/Transfer:: Acute Care w/in this hosp Admitted to:: Med/Surg Admitting Medical Physician:: Jim Solomon Time:: 20:30 Condition at Disposition:: Stable, Improved <Shahid Pinto - Last Filed: 02/20/17 20:08>
[2017-02-20] MEDS ORDERED: Sodium Chloride 0.9% 1,000 ML IV ONE (16:57)
[2017-02-20 17:24] LABS: % EOSINOPHILS 3.7 % (0.0-5.0); % MONOCYTES 5.2 % (2.0-10.0); % NEUTROPHILS 70.1 % (40.0-80.0); HEMATOCRIT 36.9 % (41.0-60); HEMOGLOBIN 12.5 gm/dL (12-16); MEAN CELL VOLUME 87.4 fl (80-99); MEAN CORPUSCULAR HEMOGLOBIN 29.7 pg (26.0-30.0); MEAN CORPUSCULAR HGB CONC 33.9 pg (28.0-36.0); MEAN PLATELET VOLUME 8.3 fl; NEUTROPHILE ABSOLUTE 5.5 Th/cmm (1.8-8.0); RED BLOOD COUNT 4.22 Mil/cmm (4.30-5.70); RED CELL DISTRIBUTION WIDTH 13.8 % (11.5-20.0); WHITE BLOOD COUNT 7.9 Th/cmm (4.8-10.8)
[2017-02-20 17:30] LABS: PLATELET COUNT 110 Th/cmm (150-400)
[2017-02-20 17:38] LABS: INR 0.93 (0.5-1.4); PROTHROMBIN TIME (TEST) 9.7 SECONDS (9.5-11.5)
[2017-02-20] MEDS ORDERED: Morphine Sulfate 2 mg/mL 1mL Syr ONE ×2 (17:38→20:20)
[2017-02-20 17:42] LABS: ALB/GLOB RATIO 1.2 (1.0-1.8); ANION GAP 22.3 (7.0-16.0); BILIRUBIN,TOTAL 0.6 mg/dL (0.3-1.0); BUN/CREATININE RATIO 8.1; CALCIUM SERUM 9.3 mg/dL (8.6-10.3)
[2017-02-20 17:44] LABS: AMYLASE SERUM 170 U/L (29-103); LIPASE 87 U/L (11-82)
[2017-02-20 17:58] LABS: CARBON DIOXIDE 7.7 mEq/L (21.0-31.0); CREATININE - SERUM 9.7 mg/dL (0.7-1.3)
[2017-02-20 20:02] LABS: URINE BILIRUBIN NEGATIVE (NEGATIVE); URINE BLOOD TRACE (NEGATIVE); URINE GLUCOSE (UA) NEGATIVE (NEGATIVE); URINE KETONE NEGATIVE (NEGATIVE); URINE PH 5.5 (4.6 - 8.0); URINE PROTEIN 100 mg/dL (NEGATIVE); URINE UROBILINOGEN 0.2 E.U./dL (0.2 - 1.0)
[2017-02-20 20:08] LABS: URINE COLOR YELLOW
[2017-02-20 20:09] LABS: URINE BACTERIA NONE SEEN /hpf (NONE SEEN); URINE EPITHELIAL CELLS RARE /lpf (FEW); URINE RBC 0-1 /hpf (0-5); URINE WBC 0-2 /hpf (0-5)
[2017-02-20] MEDS ORDERED: Morphine Sulfate 2 mg/mL 1mL Syr IVP STA (20:16)
[2017-02-20 21:38] VITALS: BP 111/67
[2017-02-20] MEDS: D5-0.9%NS 1,000 ML IV SCH (21:55)
[2017-02-21] MEDS: Morphine Sulfate 2 mg/mL 1mL Syr IVP PRN ×6 (00:02→23:12)
[2017-02-21] MEDS: INSULIN ASPART SLIDING SCALE 100 UNITS/ML UNIT SUBQ SCH ×4 (08:09→23:11)
--- NOTE | 2017-02-21 08:23 | Diagnostic Imaging Report ---
Portable chest x-ray History: Pain Allowing for portable technique the heart size is normal. No focal pulmonary parenchymal processes. No hilar or mediastinal abnormalities. Impression: No acute abnormalities.
--- NOTE | 2017-02-21 08:29 | Diagnostic Imaging Report ---
CT scan abdomen and pelvis without intravenous contrast HISTORY: Pain Total DLP equals 221 CTDI equals 5.6 Axial sections were obtained from the xiphoid process down to the pubic symphysis. The exam is compared to prior study February 04, 2017. Exam is limited due to the absence of oral/bowel contrast in a limited amount of intra-abdominal fat. The liver exhibits a generous size. No focal lesions. The spleen is also somewhat enlarged. Numerous small calcifications scattered throughout a relatively atrophic pancreas. Findings suggest changes associated with chronic pancreatitis. Surgical clips are noted within the andrade hepatis region. Findings consistent with a prior cholecystectomy. The kidneys are atrophic bilaterally along with changes consistent with chronic hydronephrosis. Little renal parenchyma remains. Small calcification seen within the residual renal parenchyma. Mildly dilated loops of small bowel noted. Little change from the prior exam of February 04, 2017. The transplant kidney is noted within the right iliac fossa of the pelvis. There is an approximate 1.5 cm calculus noted in the renal pelvic area. Smaller calcifications also noted. These may be vascular. Surgical clips also noted in the right pelvic area. There is suggestion of possible thickening involving the wall of the rectum and lower sigmoid colon. Significance should be correlated clinically. No other abnormal masses or fluid collections are seen. IMPRESSION: 1. Limited exam due to the absence of oral/bowel contrast in a limited amount of intra-abdominal fat. 2. Right transplant kidney associated with atrophic hoh kidneys. 1.5 similar calculus noted in the renal pelvis of the transplant kidney. No hydronephrosis. 3. Suggestion of thickening involving the wall of the rectum and lower sigmoid colon. Significance and etiology uncertain. Clinical correlation is needed. 4. Mild small bowel dilatation unchanged from an exam of February 04, 2017. 5. Multiple punctate pancreatic calcifications consistent with changes of chronic pancreatitis. 6. Hepatosplenomegaly 7. Surgical clips in the right upper quadrant of the abdomen consistent with a prior cholecystectomy.
[2017-02-21] MEDS: Vitamin B Complex w/Vitamin C Tab PO SCH (09:36)
[2017-02-21] MEDS ORDERED: Ampicillin Sodium/Sulbactam 1.5 GM in Sodium Chloride 0.9% 100 ML IV SCH (10:00)
--- NOTE | 2017-02-21 11:11 | History & Physical ---
ADMIT DATE: 02/21/2017 CHIEF COMPLAINT: Abdominal pain. HISTORY OF PRESENT ILLNESS: A 31-year-old [place] male who has history of end-stage liver disease on hemodialysis, status post failed renal transplant, history of laparoscopic cholecystectomy for cholecystitis and cholelithiasis, has diagnosis of diabetes and seizure disorder, brought in to the Emergency Room for evaluation of generalized weakness, poor p.o. intake, and abdominal pain associated with nausea and vomiting. The patient was worked up in the Emergency Room. CT scan of the abdomen and pelvis did reveal the patient had evidence of ileus and thickening of the rectum and sigmoid colon. The patient was advised to be admitted in the view of his abdominal pain with poor p.o. intake. The patient does have always abnormal liver function tests, but reported this time liver function revealing some improvement. The patient was also noted to have punctate pancreatic calcification with slightly elevated SGOT, SGPT. PAST MEDICAL HISTORY: Remarkable for: 1. Diabetes. 2. Seizure disorder. 3. Legally blindness. 4. End-stage renal disease, on hemodialysis. 5. Bilateral hearing loss. 6. Anemia, recurrent from chronic kidney disease. MEDICATIONS AT HOME: List has been reviewed and reconciled appropriately. ALLERGIES: The patient is not allergic to any medications. SOCIAL HISTORY: He lives with his parents. The patient has no smoking cigarette, alcohol or drug use. FAMILY MEDICAL HISTORY: Remarkable for hypertension. REVIEW OF SYSTEMS: The patient continues to complain about the abdominal pain and nausea, but denies any chest pain, shortness of breath, palpitation, hematemesis, hematuria, hematochezia, melena. No seizure or syncopal episode. PHYSICAL EXAMINATION: GENERAL: Alert, awake, lying in the bed without any acute distress. VITAL SIGNS: Temperature 98, pulse is 94, respiratory rate is 18, blood pressure 114/64. HEENT: Normocephalic, atraumatic. Extraocular muscles are intact. Tongue was pink and coated. Poor dentition noted. NECK: Supple, no JVD, no hepatojugular reflex. No lymphadenopathy, thyromegaly or carotid bruit. HEART: Both heart sounds are regular. No S3, no S4, no murmur. CHEST: Lung equal in expansion, no wheezing, no crackles. ABDOMEN: Soft. No guarding, no rigidity. Diffuse tenderness noted. Palpable ballottable kidney noted. Bowel sounds are present. EXTREMITIES: No edema, no cyanosis. AV graft with good bruit noted. NEUROLOGIC: Alert, awake, follows commands. Decreased power throughout the upper and lower extremity. AVAILABLE DIAGNOSTIC DATA: Performed in the Emergency Room, which includes CBC, CMP, PT/INR, amylase, lipase along with urinalysis, CT scan of the abdomen and pelvis is reviewed and chest x-ray. Total time reviewing the record is approximately 5 minutes. CLINICAL IMPRESSION: 1. Recurrent abdominal pain with nausea and CT scan consistent with ileus; also has a pancreatic calcification with slightly elevated amylase and lipase, suspect the patient's pain is secondary to chronic pancreatitis and abdominal ileus. 2. Abnormal liver function test. 3. End-stage renal disease, on hemodialysis. 4. Diabetes mellitus. 5. Seizure disorder. 6. Legal blindness. 7. Bilateral hearing loss. 8. Decline in self care and mobility. PLAN: 1. Admit this patient to medical floor. 2. Pain management. 3. IV antibiotic. 4. GI and General Surgery consultation. 5. Seizure medication. 6. Seizure precaution. 7. Follow lab. 8. Diabetes management 9. Follow sales consultant residential manager's recommendations. 10. Care plan has been reviewed and discussed with staff. JOB# [id number]
--- NOTE | 2017-02-21 13:14 | General Progress Note ---
Subjective - Review of Systems Service Date: 02/21/17 Events since last encounter: 02/21/17 admitted for pain labs ok CT scan noted patient sleeping and snoring, when awakened complained of abdominal pain Objective - Results Result Diagrams: 02/20/17 17:15 02/20/17 17:15 Recent Labs: Laboratory Last Values WBC 7.9 Th/cmm (4.8-10.8) 02/20/17 17:15 RBC 4.22 Mil/cmm (4.30-5.70) L 02/20/17 17:15 Hgb 12.5 gm/dL (12-16) 02/20/17 17:15 Hct 36.9 % (41.0-60) L 02/20/17 17:15 MCV 87.4 fl (80-99) 02/20/17 17:15 MCH 29.7 pg (26.0-30.0) 02/20/17 17:15 MCHC Differential 33.9 pg (28.0-36.0) 02/20/17 17:15 RDW 13.8 % (11.5-20.0) 02/20/17 17:15 Plt Count 110 Th/cmm (150-400) L D 02/20/17 17:15 MPV 8.3 fl 02/20/17 17:15 Neutrophils % 70.1 % (40.0-80.0) 02/20/17 17:15 Lymphocytes % 21.0 % (20.0-50.0) 02/20/17 17:15 Monocytes % 5.2 % (2.0-10.0) 02/20/17 17:15 Eosinophils % 3.7 % (0.0-5.0) 02/20/17 17:15 Basophils % 0.0 % (0.0-2.0) 02/20/17 17:15 PT 9.7 SECONDS (9.5-11.5) 02/20/17 17:15 INR 0.93 (0.5-1.4) 02/20/17 17:15 Sodium 129 mEq/L (136-145) L 02/20/17 17:15 Potassium 5.0 mEq/L (3.5-5.1) 02/20/17 17:15 Chloride 104 mEq/L (98-107) 02/20/17 17:15 Carbon Dioxide 7.7 mEq/L (21.0-31.0) L* 02/20/17 17:15 Anion Gap 22.3 (7.0-16.0) H 02/20/17 17:15 BUN 79 mg/dL (7-25) H 02/20/17 17:15 Creatinine 9.7 mg/dL (0.7-1.3) H* 02/20/17 17:15 Est GFR ( Amer) 8.1 ml/min (>90) 02/20/17 17:15 Est GFR (Non-Af Amer) 6.7 ml/min 02/20/17 17:15 BUN/Creatinine Ratio 8.1 02/20/17 17:15 Glucose 77 mg/dL (70-105) 02/20/17 17:15 POC Glucose 76 MG/DL (70 - 105) 02/21/17 11:37 Calcium 9.3 mg/dL (8.6-10.3) 02/20/17 17:15 Total Bilirubin 0.6 mg/dL (0.3-1.0) 02/20/17 17:15 AST 75 U/L (13-39) H 02/20/17 17:15 ALT 104 U/L (7-52) H 02/20/17 17:15 Alkaline Phosphatase 384 U/L (34-104) H 02/20/17 17:15 Creatine Kinase 41 U/L (30-223) 02/20/17 17:15 Troponin I < 0.01 ng/mL (0.01-0.05) L 02/20/17 17:15 B-Natriuretic Peptide 114.0 pg/mL (5.0-100.0) H 02/20/17 17:15 Total Protein 7.1 gm/dL (6.0-8.3) 02/20/17 17:15 Albumin 3.9 gm/dL (4.2-5.5) L 02/20/17 17:15 Globulin 3.2 gm/dL 02/20/17 17:15 Albumin/Globulin Ratio 1.2 (1.0-1.8) 02/20/17 17:15 Triglycerides 100 mg/dL (<150) 02/20/17 17:15 Cholesterol 115 mg/dL (<200) 02/20/17 17:15 LDL Cholesterol Direct 34 mg/dL (75-193) L 02/20/17 17:15 HDL Cholesterol 61 mg/dL (23-92) 02/20/17 17:15 Amylase 170 U/L (29-103) H 02/20/17 17:15 Lipase 87 U/L (11-82) H 02/20/17 17:15 Urine Source CLEAN C 02/20/17 19:40 Urine Color YELLOW 02/20/17 19:40 Urine Clarity CLEAR (CLEAR) 02/20/17 19:40 Urine pH 5.5 (4.6 - 8.0) 02/20/17 19:40 Ur Specific [place] 1.010 (1.005-1.030) 02/20/17 19:40 Urine Protein 100 mg/dL (NEGATIVE) H 02/20/17 19:40 Urine Glucose (UA) NEGATIVE mg/dL (NEGATIVE) 02/20/17 19:40 Urine Ketones NEGATIVE mg/dL (NEGATIVE) 02/20/17 19:40 Urine Blood TRACE (NEGATIVE) 02/20/17 19:40 Urine Nitrate NEGATIVE (NEGATIVE) 02/20/17 19:40 Urine Bilirubin NEGATIVE (NEGATIVE) 02/20/17 19:40 Urine Urobilinogen 0.2 E.U./dL (0.2 - 1.0) 02/20/17 19:40 Ur Leukocyte Esterase NEGATIVE (NEGATIVE) 02/20/17 19:40 Urine RBC 0-1 /hpf (0-5) 02/20/17 19:40 Urine WBC 0-2 /hpf (0-5) 02/20/17 19:40 Ur Epithelial Cells RARE /lpf (FEW) 02/20/17 19:40 Urine Bacteria NONE SEEN /hpf (NONE SEEN) 02/20/17 19:40 - Physical Exam Vitals and I&O: Vital Signs Temp 97.8 F 02/21/17 11:51 Pulse 96 02/21/17 11:51 Resp 16 02/21/17 11:51 BP 102/63 02/21/17 11:51 Pulse Ox 99 02/21/17 11:51 Intake & Output 02/20/17 02/21/17 02/21/17 18:59 06:59 18:59 Intake Total 400 Balance 400 Weight (lbs) 42.32 kg Intake: Intake, IV Amount 400 Oral 0 Active Medications: Current Medications Dextrose/Sodium Chloride (D5-0.9%Ns) 1,000 mls @ 50 mls/hr IV .Q20H [facility] Stop: 04/21/17 21:21 Last Admin: 02/20/17 21:55 Dose: 50 mls/hr Ampicillin Sodium/Sulbactam (Sodium 1.5 gm/ Sodium Chloride) 50 mls @ 50 mls/ hr IV Q12HR [facility] Stop: 04/22/17 10:59 Last Admin: 02/21/17 11:32 Dose: 50 mls/hr Insulin Aspart (Novolog Insulin Sliding Scale) 0 units SUBQ ACHS [facility] PRN Reason: Protocol Stop: 04/22/17 07:29 Last Admin: 02/21/17 11:53 Dose: Not Given Levetiracetam (Keppra) 500 mg PO BID [facility] Stop: 04/22/17 08:59 Last Admin: 02/21/17 09:36 Dose: 500 mg Morphine Sulfate (Morphine) 2 mg IVP Q4H PRN PRN Reason: Severe Pain Stop: 04/21/17 21:17 Last Admin: 02/21/17 08:06 Dose: 2 mg Ondansetron HCl (Zofran) 4 mg IVP Q6H PRN PRN Reason: Nausea / Vomiting Stop: 04/21/17 21:17 Sodium Chloride (Saline Flush) 10 ml IV QSHIFT [facility] Stop: 04/22/17 07:59 Last Admin: 02/21/17 08:09 Dose: 10 ml Vitamin B Complex/Vit C/Folic Acid (Vitamin B Complex W/Vitamin C) 1 tab PO DAILY [facility] Stop: 04/22/17 08:59 Last Admin: 02/21/17 09:36 Dose: 1 tab - Procedures Procedures: Procedures Procedure Code Date ABDOMEN SURGERY PROCEDURE 26484 10/21/16 BLOOD TRANSFUSION SERVICE 38958 12/11/16 CONTROL BLEEDING IN GASTROINTESTINAL TRACT, ENDO [id number] 12/11/16 DILATION OF COMMON BILE DUCT WITH INTRALUMINAL DEVICE, ENDO [id number] 12/11/16 EGD BIOPSY SINGLE/MULTIPLE 01231 02/20/16 EGD CONTROL BLEEDING ANY 66316 12/11/16 ENDO CHOLANGIOPANCREATOGRAPH 71059 12/11/16 EXCISION OF DUODENUM, ENDO, DIAGN [id number] 02/20/16 EXCISION OF STOMACH, PYLORUS, ENDO, DIAGN [id number] 02/20/16 EXTIRPATION OF MATTER FROM COMMON BILE DUCT, ENDO [id number] 12/11/16 INTRODUCTION OF OTHER THERAPEUTIC SUBSTANCE INTO UP GI, ENDO 3F0F0ST 12/11/16 INTRODUCTION OF SERUM/TOX/VACCINE INTO MUSCLE, PERC APPROACH [id number] 11/05/16 PERFORMANCE OF URINARY FILTRATION, MULTIPLE 6U2A16Y 12/11/16 PERFORMANCE OF URINARY FILTRATION, SINGLE 8T4A90Z 11/05/16 RELEASE GREATER OMENTUM, OPEN APPROACH 6SYL3GR 10/21/16 RELEASE LIVER, OPEN APPROACH [id number] 10/21/16 REMOVAL OF GALLBLADDER 04841 10/21/16 RESECTION OF GALLBLADDER, OPEN APPROACH [id number] 10/21/16 TRANSFUSE NONAUT FRESH PLASMA IN PERIPH VEIN, [facility] 59306A0 12/11/16 TRANSFUSE NONAUT FROZEN PLASMA IN PERIPH VEIN, [facility] 56592B8 12/11/16 TRANSFUSE NONAUT PLATELETS IN PERIPH VEIN, [facility] 78891B0 12/11/16 TRANSFUSE NONAUT RED BLOOD CELLS IN PERIPH VEIN, [facility] 88937V0 12/11/16 UPPR GI SCOPE W/SUBMUC INJ 11968 12/11/16 Assessment/Plan - Problem List Patient Problems: All Active Problems COUGH WITH ABDOMINAL PAIN AND H/A (Acute) HEADACHE, ABDOMINAL PAIN, LEG PAIN (Acute)
[2017-02-21] MEDS: Pancrelipase Cap ECC PO SCH (17:21)
[2017-02-21] MEDS ORDERED: Guaifenesin DM 10 ML UDC PO PRN (19:19)
[2017-02-21] MEDS: D5-0.9%NS 1,000 ML IV SCH (22:39)
--- NOTE | 2017-02-22 00:39 | Consultation ---
DATE OF CONSULTATION: 02/21/2017 GASTROENTEROLOGY CONSULTATION REQUESTING PHYSICIAN: Feliciano Davis M.D. REASON FOR CONSULTATION: Abdominal pain. HISTORY OF PRESENT ILLNESS: A 31-year-old male, known to us from previous admissions with history of failed renal transplantation, back on dialysis, admitted for vague epigastric abdominal pain. During his admission in December, he was suspected to have choledocholithiasis. He underwent an ERCP where a sphincterotomy was performed and biliary sludge was extracted. This was complicated by sphincterotomy site bleeding that required numerous endoscopies to control the bleeding. The patient now presents with recurrent epigastric abdominal pain. He has a mild elevation of liver enzymes. He denies nausea or vomiting. PAST MEDICAL HISTORY: As above. MEDICATIONS: Here are Unasyn, insulin sliding scale, Keppra, morphine, Zofran, vitamin B and C complex. ALLERGIES: None. SOCIAL HISTORY: No recent tobacco, alcohol or drugs. Lives with parents. FAMILY HISTORY: Noncontributory. REVIEW OF SYSTEMS: A comprehensive 12-point review of system was conducted and is only positive for those signs and symptoms present in history of present illness. PHYSICAL EXAMINATION: VITAL SIGNS: Temperature 97.8, blood pressure 102/63, pulse of 96, respirations 16, O2 sat is 99% on room air. GENERAL: The patient is chronically ill appearing small statured male in no acute distress. HEENT: Sclerae nonicteric. Oropharynx is clear. CARDIOVASCULAR: Regular rate and rhythm. LUNGS: Clear to auscultation bilaterally. ABDOMEN: Soft, mild epigastric tenderness to palpation. EXTREMITIES: No clubbing, cyanosis or edema. RECTAL: Deferred. LABORATORY DATA AND IMAGING: WBC 7.9, hemoglobin 12.5, platelet count is 110. INR is 0.9. Creatinine is 9.7, bilirubin 0.6, AST 75, ALT 104, alkaline phosphatase 384, albumin 3.9, amylase is mildly elevated to 170, lipase mildly elevated. Urinalysis is essentially negative. CT of the abdomen and pelvis done yesterday without contrast shows limited examination due to lack of contrast transplanted right kidney with atrophic [place] kidneys, suggestion of thickening in the wall of the rectum and lower sigmoid colon. Mild small bowel dilation unchanged from prior, multiple punctate calcifications in the pancreas consistent with chronic pancreatitis, hepatosplenomegaly, and surgical clips in the right upper quadrant consistent with previous cholecystectomy. IMPRESSION: 1. Abdominal pain in the epigastric area with mild elevation of liver enzymes as well as amylase and lipase with CT showing chronic pancreatitis change. These findings are suggestive of acute on chronic pancreatitis and perhaps low grade biliary obstruction. There is no evidence of cholangitis at this point. The patient had an ERCP with clearance of bile duct 2 months ago. 2. History of renal transplantation, that failed. 3. End-stage renal disease. RECOMMENDATIONS: 1. Antibiotics. 2. Monitor liver labs. 3. Consider MRCP. 4. Antacids. Thank you Dr. Feliciano Davis for involving us in the care of your patient. If you have any further questions, please call us. JOB# [id number]
[2017-02-22] MEDS: Morphine Sulfate 2 mg/mL 1mL Syr IVP PRN ×4 (04:02→21:20)
[2017-02-22] MEDS: Pancrelipase Cap ECC PO SCH ×3 (09:27→16:37)
[2017-02-22] MEDS: Vitamin B Complex w/Vitamin C Tab PO SCH (09:27)
[2017-02-22 09:55] LABS: % BASOPHILS 4.5 % (0.0-2.0); % EOSINOPHILS 3.3 % (0.0-5.0); % LYMPHOCYTES 20.5 % (20.0-50.0); % MONOCYTES 5.5 % (2.0-10.0); % NEUTROPHILS 66.2 % (40.0-80.0); HEMATOCRIT 37.7 % (41.0-60); HEMOGLOBIN 12.7 gm/dL (12-16); MEAN CELL VOLUME 88.2 fl (80-99); MEAN CORPUSCULAR HEMOGLOBIN 29.6 pg (26.0-30.0); MEAN CORPUSCULAR HGB CONC 33.6 pg (28.0-36.0); MEAN PLATELET VOLUME 8.1 fl; NEUTROPHILE ABSOLUTE 4.8 Th/cmm (1.8-8.0); PLATELET COUNT 88 Th/cmm (150-400); RED BLOOD COUNT 4.27 Mil/cmm (4.30-5.70); RED CELL DISTRIBUTION WIDTH 14.1 % (11.5-20.0); WHITE BLOOD COUNT 7.2 Th/cmm (4.8-10.8)
[2017-02-22 10:33] LABS: ALB/GLOB RATIO 1.2 (1.0-1.8); BILIRUBIN,TOTAL 0.5 mg/dL (0.3-1.0); BUN/CREATININE RATIO 7.8; CALCIUM SERUM 8.9 mg/dL (8.6-10.3); MAGNESIUM 2.4 mg/dL (1.9-2.7); POTASSIUM SERUM 5.2 mEq/L (3.5-5.1)
[2017-02-22 11:00] LABS: ANION GAP 20.7 (7.0-16.0)
[2017-02-22 11:01] LABS: CARBON DIOXIDE 7.5 mEq/L (21.0-31.0); CREATININE - SERUM 11.4 mg/dL (0.7-1.3)
[2017-02-22] MEDS: INSULIN ASPART SLIDING SCALE 100 UNITS/ML UNIT SUBQ SCH ×2 (16:44→18:34)
--- NOTE | 2017-02-22 18:00 | Consultation ---
DATE OF CONSULTATION: 02/22/2017 RENAL CONSULTATION REASON FOR CONSULTATION: End-stage renal disease. HISTORY OF PRESENT ILLNESS: A 31-year-old [place] Monegasque male with a past medical history of end-stage renal disease, on chronic dialysis; diabetes; hypertension; seizure disorder; legally blind; congenitally malfunctioning kidneys; cognitive impairment; bilateral hearing loss; anemia, admitted to the hospital with abdominal pain, recent history of lap ronal. CT scan shows ileus. LABORATORY DATA: Shows potassium 5.2, CO2 is 7.5, creatinine is 11.4, BUN is 89, AST is 86, ALT is 108, alkaline phosphatase is ____. White count 7.2, H and H is 12 and 37, platelets 88. PHYSICAL EXAMINATION: VITAL SIGNS: Blood pressure is 101/62, heart rate is 94, temperature is 97.8. HEENT: Anicteric. NECK: Supple. LUNGS: Clear. ABDOMEN: Tender slightly. EXTREMITIES: No edema. ASSESSMENT AND PLAN: A 31-year-old male admitted with abdominal pain. He has end-stage renal disease. We will order dialysis for him and continue the rest of his diabetic medications. JOB# [id number]
[2017-02-22] MEDS: D5-0.9%NS 1,000 ML IV SCH (21:19)
[2017-02-23] MEDS: Morphine Sulfate 2 mg/mL 1mL Syr IVP PRN ×4 (01:16→19:59)
[2017-02-23] MEDS: INSULIN ASPART SLIDING SCALE 100 UNITS/ML UNIT SUBQ SCH ×4 (08:16→20:07)
[2017-02-23] MEDS: Pancrelipase Cap ECC PO SCH ×3 (08:17→17:25)
[2017-02-23] MEDS: Vitamin B Complex w/Vitamin C Tab PO SCH (08:18)
[2017-02-23] MEDS ORDERED: Probiotic Screen MC PRN (11:15)
--- NOTE | 2017-02-23 12:56 | Internal Medicine Prog Note ---
Internal Medicine Subjective - Subjective Service Date: 02/23/17 Patient seen and examined:: with staff Patient is:: awake, verbal Patient Complaints of:: other (right arm pain) Per staff patient has:: tolerating meds Internal Medicine Objective - Results Result Diagrams: 02/22/17 09:40 02/22/17 09:40 Recent Labs: Laboratory Last Values WBC 7.2 Th/cmm (4.8-10.8) 02/22/17 09:40 RBC 4.27 Mil/cmm (4.30-5.70) L 02/22/17 09:40 Hgb 12.7 gm/dL (12-16) 02/22/17 09:40 Hct 37.7 % (41.0-60) L 02/22/17 09:40 MCV 88.2 fl (80-99) 02/22/17 09:40 MCH 29.6 pg (26.0-30.0) 02/22/17 09:40 MCHC Differential 33.6 pg (28.0-36.0) 02/22/17 09:40 RDW 14.1 % (11.5-20.0) 02/22/17 09:40 Plt Count 88 Th/cmm (150-400) L 02/22/17 09:40 MPV 8.1 fl 02/22/17 09:40 Neutrophils % 66.2 % (40.0-80.0) 02/22/17 09:40 Lymphocytes % 20.5 % (20.0-50.0) 02/22/17 09:40 Monocytes % 5.5 % (2.0-10.0) 02/22/17 09:40 Eosinophils % 3.3 % (0.0-5.0) 02/22/17 09:40 Basophils % 4.5 % (0.0-2.0) H 02/22/17 09:40 PT 9.7 SECONDS (9.5-11.5) 02/20/17 17:15 INR 0.93 (0.5-1.4) 02/20/17 17:15 Sodium 136 mEq/L (136-145) 02/22/17 09:40 Potassium 5.2 mEq/L (3.5-5.1) H 02/22/17 09:40 Chloride 113 mEq/L (98-107) H 02/22/17 09:40 Carbon Dioxide 7.5 mEq/L (21.0-31.0) L* 02/22/17 09:40 Anion Gap 20.7 (7.0-16.0) H 02/22/17 09:40 BUN 89 mg/dL (7-25) H* 02/22/17 09:40 Creatinine 11.4 mg/dL (0.7-1.3) H* 02/22/17 09:40 Est GFR ( Amer) 6.7 ml/min (>90) 02/22/17 09:40 Est GFR (Non-Af Amer) 5.5 ml/min 02/22/17 09:40 BUN/Creatinine Ratio 7.8 02/22/17 09:40 Glucose 105 mg/dL (70-105) 02/22/17 09:40 POC Glucose 115 MG/DL (70 - 105) H 02/22/17 16:43 Calcium 8.9 mg/dL (8.6-10.3) 02/22/17 09:40 Magnesium 2.4 mg/dL (1.9-2.7) 02/22/17 09:40 Total Bilirubin 0.5 mg/dL (0.3-1.0) 02/22/17 09:40 AST 86 U/L (13-39) H 02/22/17 09:40 ALT 108 U/L (7-52) H 02/22/17 09:40 Alkaline Phosphatase 386 U/L (34-104) H 02/22/17 09:40 Creatine Kinase 41 U/L (30-223) 02/20/17 17:15 Troponin I < 0.01 ng/mL (0.01-0.05) L 02/20/17 17:15 B-Natriuretic Peptide 114.0 pg/mL (5.0-100.0) H 02/20/17 17:15 Total Protein 6.7 gm/dL (6.0-8.3) 02/22/17 09:40 Albumin 3.7 gm/dL (4.2-5.5) L 02/22/17 09:40 Globulin 3.0 gm/dL 02/22/17 09:40 Albumin/Globulin Ratio 1.2 (1.0-1.8) 02/22/17 09:40 Triglycerides 97 mg/dL (<150) 02/22/17 09:40 Cholesterol 102 mg/dL (<200) 02/22/17 09:40 LDL Cholesterol Direct 30 mg/dL (75-193) L 02/22/17 09:40 HDL Cholesterol 52 mg/dL (23-92) 02/22/17 09:40 Amylase 157 U/L (29-103) H 02/22/17 09:40 Lipase 89 U/L (11-82) H 02/22/17 09:40 Urine Source CLEAN C 02/20/17 19:40 Urine Color YELLOW 02/20/17 19:40 Urine Clarity CLEAR (CLEAR) 02/20/17 19:40 Urine pH 5.5 (4.6 - 8.0) 02/20/17 19:40 Ur Specific [place] 1.010 (1.005-1.030) 02/20/17 19:40 Urine Protein 100 mg/dL (NEGATIVE) H 02/20/17 19:40 Urine Glucose (UA) NEGATIVE mg/dL (NEGATIVE) 02/20/17 19:40 Urine Ketones NEGATIVE mg/dL (NEGATIVE) 02/20/17 19:40 Urine Blood TRACE (NEGATIVE) 02/20/17 19:40 Urine Nitrate NEGATIVE (NEGATIVE) 02/20/17 19:40 Urine Bilirubin NEGATIVE (NEGATIVE) 02/20/17 19:40 Urine Urobilinogen 0.2 E.U./dL (0.2 - 1.0) 02/20/17 19:40 Ur Leukocyte Esterase NEGATIVE (NEGATIVE) 02/20/17 19:40 Urine RBC 0-1 /hpf (0-5) 02/20/17 19:40 Urine WBC 0-2 /hpf (0-5) 02/20/17 19:40 Ur Epithelial Cells RARE /lpf (FEW) 02/20/17 19:40 Urine Bacteria NONE SEEN /hpf (NONE SEEN) 02/20/17 19:40 - Physical Exam Vitals and I&O: Vital Signs Temp 98.6 F 02/23/17 08:00 Pulse 98 02/23/17 08:00 Resp 18 02/23/17 08:00 BP 101/63 02/23/17 08:00 Pulse Ox 96 02/23/17 08:00 Intake & Output 02/22/17 02/23/17 02/23/17 18:59 06:59 18:59 Intake Total 1650 50 Output Total 1600 Balance 50 50 Weight (lbs) 96 lb 5 oz 93 lb 4.8 oz Intake: Intake, IV Amount 1050 50 Ampicillin Sodium/ 50 50 Sulbactam 1.5 gm In Sodium Chloride 0.9% 50 ml @ 50 mls/hr IV Q12HR [facility] Rx#:[id number] D5-0.9%Ns 1,000 ml @ 50 1000 mls/hr IV .Q20H [facility] Rx#: [id number] Oral 600 Output: Hemodialysis 1600 Other: # Voids 1 # Bowel Movements 3 Active Medications: Current Medications Amitriptyline HCl (Elavil) 10 mg PO BID [facility] PRN Reason: Protocol Stop: 04/23/17 16:59 Last Admin: 02/23/17 08:18 Dose: Not Given Guaifenesin/Dextromethorphan (Robitussin Dm) 10 ml PO Q6HR PRN PRN Reason: Cough Stop: 04/22/17 19:18 Dextrose/Sodium Chloride (D5-0.9%Ns) 1,000 mls @ 50 mls/hr IV .Q20H [facility] Stop: 04/21/17 21:21 Last Admin: 02/22/17 21:19 Dose: 50 mls/hr Ampicillin Sodium/Sulbactam (Sodium 1.5 gm/ Sodium Chloride) 50 mls @ 50 mls/ hr IV Q12HR [facility] Stop: 04/22/17 10:59 Last Admin: 02/23/17 08:36 Dose: 50 mls/hr Insulin Aspart (Novolog Insulin Sliding Scale) 0 units SUBQ ACHS [facility] PRN Reason: Protocol Stop: 04/22/17 07:29 Last Admin: 02/23/17 08:16 Dose: Not Given Lactobacillus Rhamnosus (Culturelle) 1 each PO DAILY [facility] Stop: 04/25/17 08:59 Levetiracetam (Keppra) 500 mg PO BID [facility] Stop: 04/22/17 08:59 Last Admin: 02/23/17 08:18 Dose: Not Given Miscellaneous (Probiotic Screen) 1 ea MC PRN PRN PRN Reason: PROTOCOL Stop: 04/24/17 11:14 Morphine Sulfate (Morphine) 2 mg IVP Q4H PRN PRN Reason: Severe Pain Stop: 04/21/17 21:17 Last Admin: 02/23/17 06:04 Dose: 2 mg Multi-Ingredient Ointment (Pancrelipase 62956 U-5000 U-00149 U) 1 ecc PO TIDWM [facility] Stop: 04/22/17 16:59 Last Admin: 02/23/17 08:17 Dose: Not Given Ondansetron HCl (Zofran) 4 mg IVP Q6H PRN PRN Reason: Nausea / Vomiting Stop: 04/21/17 21:17 Sodium Chloride (Saline Flush) 10 ml IV QSHIFT [facility] Stop: 04/22/17 07:59 Last Admin: 02/23/17 08:17 Dose: Not Given Vitamin B Complex/Vit C/Folic Acid (Vitamin B Complex W/Vitamin C) 1 tab PO DAILY [facility] Stop: 04/22/17 08:59 Last Admin: 02/23/17 08:18 Dose: Not Given General: alert HEENT: NC/AT, PERRLA Neck: Supple Lungs: CTAB Cardiovascular: RRR, without murmur Abdomen: soft, non-tender, non-distended Extremities: excoriation Neurological: alert - Procedures Procedures: Procedures Procedure Code Date ABDOMEN SURGERY PROCEDURE 97876 10/21/16 BLOOD TRANSFUSION SERVICE 13381 12/11/16 CONTROL BLEEDING IN GASTROINTESTINAL TRACT, ENDO 3W5S6VI 12/11/16 DILATION OF COMMON BILE DUCT WITH INTRALUMINAL DEVICE, ENDO [id number] 12/11/16 EGD BIOPSY SINGLE/MULTIPLE 97314 02/20/16 EGD CONTROL BLEEDING ANY 73763 12/11/16 ENDO CHOLANGIOPANCREATOGRAPH 85163 12/11/16 EXCISION OF DUODENUM, ENDO, DIAGN [id number] 02/20/16 EXCISION OF STOMACH, PYLORUS, ENDO, DIAGN [id number] 02/20/16 EXTIRPATION OF MATTER FROM COMMON BILE DUCT, ENDO 8HE89WU 12/11/16 INTRODUCTION OF OTHER THERAPEUTIC SUBSTANCE INTO UP GI, ENDO 5B7D3IY 12/11/16 INTRODUCTION OF SERUM/TOX/VACCINE INTO MUSCLE, PERC APPROACH [id number] 11/05/16 PERFORMANCE OF URINARY FILTRATION, MULTIPLE 9S2T41I 12/11/16 PERFORMANCE OF URINARY FILTRATION, SINGLE 5A5Q06L 11/05/16 RELEASE GREATER OMENTUM, OPEN APPROACH [id number] 10/21/16 RELEASE LIVER, OPEN APPROACH [id number] 10/21/16 REMOVAL OF GALLBLADDER 28837 10/21/16 RESECTION OF GALLBLADDER, OPEN APPROACH [id number] 10/21/16 TRANSFUSE NONAUT FRESH PLASMA IN PERIPH VEIN, [facility] 94334Y6 12/11/16 TRANSFUSE NONAUT FROZEN PLASMA IN PERIPH VEIN, [facility] 80629P7 12/11/16 TRANSFUSE NONAUT PLATELETS IN PERIPH VEIN, [facility] 95615W6 12/11/16 TRANSFUSE NONAUT RED BLOOD CELLS IN PERIPH VEIN, [facility] 95943C4 12/11/16 UPPR GI SCOPE W/SUBMUC INJ 80880 12/11/16 Internal Medicine Assmt/Plan - Assessment Assessment: Abdominal pain Chronic Pancreatitis Abdominal ileus ESRD on HD Abnormal lft DM-2 Legal blindness Bilateral hearing loss - Plan Plan: will add bilateral venous doppler continue with HD seizure precautions monitor glucose level pain mgmt am labs continue current plan of care
--- NOTE | 2017-02-23 13:07 | Diagnostic Imaging Report ---
MRCP History: Elevated LFTs. Abdominal pain. Nausea and vomiting.Note the patient is status post cholecystectomy. Comparison: MRCP on 12/22 and 10/24/2016. Study was also compared to CT abdomen and pelvis performed at outside gland or hospital on 02/20/2017 Findings: No evidence of focal hepatic lesions. Status post collapse cholecystectomy. There is indeterminate area of low signal intensity seen along the gallbladder fossa region measuring 2.7 x 1.6 cm. The common bile duct is mildly irregular measures up to 8 mm greatest proximally with smooth distal tapering. No common bile duct stones identified. No focal splenic lesions. Severe pancreatic gland atrophy is noted. Assessment of pancreas is limited on this exam. Mild splenomegaly is noted. There is severe bilateral hydronephrosis. There may be bilateral renal cysts. Markedly distended urinary bladder is noted. Small amount of ascites is noted. Degenerative changes of the spine are noted. IMPRESSION: Evidence of prior cholecystectomy. There is a 2.7 x 1.6 cm signal void seen along the gallbladder fossa. Etiology is uncertain and corresponds to area of increased density seen on recent CT examinations. Findings may be postoperative in etiology. A remnant portion of the gallbladder is considered less likely but cannot be excluded.. Clinical correlation follow-up recommended. Mild irregularity common bile duct with common bile duct measuring up to 8 mm proximally. Smooth distal tapering is noted. Severe bilateral hydronephrosis. There may be additional renal cysts. Severely atrophic kidneys are noted. These findings are probably long-standing. Distended urinary bladder is also noted. Small amount of free fluid. Severe pancreatic gland atrophy. Mild splenomegaly.
--- NOTE | 2017-02-23 15:12 | Diagnostic Imaging Report ---
Bilateral lower extremity DVT study HISTORY: Pain COMPARISON: None Technique: Longitudinal and transverse sonographic images of the bilateral lower extremity veins were obtained with doppler analysis. FINDINGS: There is normal compressibility, augmentation and phasicity of the bilateral common femoral, superficial femoral, popliteal, and posterior tibial veins. No thrombus is visualized. IMPRESSION: No evidence of thrombus within the bilateral lower extremity veins.
--- NOTE | 2017-02-23 15:15 | Diagnostic Imaging Report ---
KUB single view HISTORY: Abdominal pain. COMPARISON: CT abdomen and pelvis on 02/20/2017 FINDINGS: There is distention of what appears to be a stomach. Addition gaseous distended loops of primarily large bowel are noted. Calcification of the right lower quadrant are noted likely representing renal transplant calcification when compared to recent CT examination. Cholecystectomy clips are noted. Calcifications are seen the region of the pancreas. There is 2 cm sclerotic density possibly a bone island of the medial left ilium. IMPRESSION: Gas distended loops of primarily large bowel. A mild ileus may be considered. Correlate clinically. Gaseous distention of the stomach. Mid abdomen calcifications representing pancreatic gland calcifications, sequela of chronic pancreatitis. Evidence of prior cholecystectomy.
[2017-02-24] MEDS: Morphine Sulfate 2 mg/mL 1mL Syr IVP PRN ×5 (01:11→21:03)
[2017-02-24] MEDS: D5-0.9%NS 1,000 ML IV SCH ×2 (01:24→21:22)
[2017-02-24] MEDS: INSULIN ASPART SLIDING SCALE 100 UNITS/ML UNIT SUBQ SCH ×5 (05:45→21:23)
[2017-02-24 05:46] LABS: % BASOPHILS 1.5 % (0.0-2.0); % EOSINOPHILS 4.4 % (0.0-5.0); % LYMPHOCYTES 28.2 % (20.0-50.0); % MONOCYTES 8.5 % (2.0-10.0); % NEUTROPHILS 57.4 % (40.0-80.0); HEMATOCRIT 34.5 % (41.0-60); HEMOGLOBIN 11.5 gm/dL (12-16); MEAN CELL VOLUME 87.2 fl (80-99); MEAN CORPUSCULAR HGB CONC 33.3 pg (28.0-36.0); MEAN PLATELET VOLUME 8.8 fl; NEUTROPHILE ABSOLUTE 3.2 Th/cmm (1.8-8.0); PLATELET COUNT 81 Th/cmm (150-400); RED BLOOD COUNT 3.96 Mil/cmm (4.30-5.70); RED CELL DISTRIBUTION WIDTH 13.6 % (11.5-20.0)
[2017-02-24 05:48] LABS: WHITE BLOOD COUNT 5.6 Th/cmm (4.8-10.8)
[2017-02-24 05:55] LABS: BUN/CREATININE RATIO 4.8; CALCIUM SERUM 8.6 mg/dL (8.6-10.3); CARBON DIOXIDE 23.2 mEq/L (21.0-31.0); POTASSIUM SERUM 3.2 mEq/L (3.5-5.1)
[2017-02-24 06:11] LABS: CREATININE - SERUM 8.9 mg/dL (0.7-1.3)
[2017-02-24] MEDS: Pancrelipase Cap ECC PO SCH ×3 (08:25→16:41)
[2017-02-24] MEDS: Lactobacillus Rhamnosus 10 Billion CFU Capsule PO SCH (08:25)
[2017-02-24] MEDS: Vitamin B Complex w/Vitamin C Tab PO SCH (08:26)
[2017-02-24] MEDS ORDERED: Potassium Chloride 20 mEq ER Tab PO ONE (09:44)
--- NOTE | 2017-02-24 19:08 | Internal Medicine Prog Note ---
Internal Medicine Subjective - Subjective Service Date: 02/24/17 (undergoing HD at this time. c/o body pain) Patient is:: awake, verbal Patient Complaints of:: other (right arm pain) Per staff patient has:: tolerating meds Internal Medicine Objective - Results Result Diagrams: 02/24/17 05:28 02/24/17 05:28 Recent Labs: Laboratory Last Values WBC 5.6 Th/cmm (4.8-10.8) D 02/24/17 05:28 RBC 3.96 Mil/cmm (4.30-5.70) L 02/24/17 05:28 Hgb 11.5 gm/dL (12-16) L 02/24/17 05:28 Hct 34.5 % (41.0-60) L 02/24/17 05:28 MCV 87.2 fl (80-99) 02/24/17 05:28 MCH 29.0 pg (26.0-30.0) 02/24/17 05:28 MCHC Differential 33.3 pg (28.0-36.0) 02/24/17 05:28 RDW 13.6 % (11.5-20.0) 02/24/17 05:28 Plt Count 81 Th/cmm (150-400) L 02/24/17 05:28 MPV 8.8 fl 02/24/17 05:28 Neutrophils % 57.4 % (40.0-80.0) 02/24/17 05:28 Lymphocytes % 28.2 % (20.0-50.0) 02/24/17 05:28 Monocytes % 8.5 % (2.0-10.0) 02/24/17 05:28 Eosinophils % 4.4 % (0.0-5.0) 02/24/17 05:28 Basophils % 1.5 % (0.0-2.0) 02/24/17 05:28 PT 9.7 SECONDS (9.5-11.5) 02/20/17 17:15 INR 0.93 (0.5-1.4) 02/20/17 17:15 Sodium 138 mEq/L (136-145) 02/24/17 05:28 Potassium 3.2 mEq/L (3.5-5.1) L D 02/24/17 05:28 Chloride 102 mEq/L (98-107) 02/24/17 05:28 Carbon Dioxide 23.2 mEq/L (21.0-31.0) 02/24/17 05:28 Anion Gap 16.0 (7.0-16.0) 02/24/17 05:28 BUN 43 mg/dL (7-25) H 02/24/17 05:28 Creatinine 8.9 mg/dL (0.7-1.3) H* 02/24/17 05:28 Est GFR ( Amer) 8.9 ml/min (>90) 02/24/17 05:28 Est GFR (Non-Af Amer) 7.4 ml/min 02/24/17 05:28 BUN/Creatinine Ratio 4.8 02/24/17 05:28 Glucose 103 mg/dL (70-105) 02/24/17 05:28 POC Glucose 154 MG/DL (70 - 105) H 02/24/17 17:03 Calcium 8.6 mg/dL (8.6-10.3) 02/24/17 05:28 Magnesium 2.4 mg/dL (1.9-2.7) 02/22/17 09:40 Total Bilirubin 0.5 mg/dL (0.3-1.0) 02/22/17 09:40 AST 86 U/L (13-39) H 02/22/17 09:40 ALT 108 U/L (7-52) H 02/22/17 09:40 Alkaline Phosphatase 386 U/L (34-104) H 02/22/17 09:40 Creatine Kinase 41 U/L (30-223) 02/20/17 17:15 Troponin I < 0.01 ng/mL (0.01-0.05) L 02/20/17 17:15 B-Natriuretic Peptide 114.0 pg/mL (5.0-100.0) H 02/20/17 17:15 Total Protein 6.7 gm/dL (6.0-8.3) 02/22/17 09:40 Albumin 3.7 gm/dL (4.2-5.5) L 02/22/17 09:40 Globulin 3.0 gm/dL 02/22/17 09:40 Albumin/Globulin Ratio 1.2 (1.0-1.8) 02/22/17 09:40 Triglycerides 97 mg/dL (<150) 02/22/17 09:40 Cholesterol 102 mg/dL (<200) 02/22/17 09:40 LDL Cholesterol Direct 30 mg/dL (75-193) L 02/22/17 09:40 HDL Cholesterol 52 mg/dL (23-92) 02/22/17 09:40 Amylase 157 U/L (29-103) H 02/22/17 09:40 Lipase 17 U/L (11-82) 02/24/17 05:28 Urine Source CLEAN C 02/20/17 19:40 Urine Color YELLOW 02/20/17 19:40 Urine Clarity CLEAR (CLEAR) 02/20/17 19:40 Urine pH 5.5 (4.6 - 8.0) 02/20/17 19:40 Ur Specific [place] 1.010 (1.005-1.030) 02/20/17 19:40 Urine Protein 100 mg/dL (NEGATIVE) H 02/20/17 19:40 Urine Glucose (UA) NEGATIVE mg/dL (NEGATIVE) 02/20/17 19:40 Urine Ketones NEGATIVE mg/dL (NEGATIVE) 02/20/17 19:40 Urine Blood TRACE (NEGATIVE) 02/20/17 19:40 Urine Nitrate NEGATIVE (NEGATIVE) 02/20/17 19:40 Urine Bilirubin NEGATIVE (NEGATIVE) 02/20/17 19:40 Urine Urobilinogen 0.2 E.U./dL (0.2 - 1.0) 02/20/17 19:40 Ur Leukocyte Esterase NEGATIVE (NEGATIVE) 02/20/17 19:40 Urine RBC 0-1 /hpf (0-5) 02/20/17 19:40 Urine WBC 0-2 /hpf (0-5) 02/20/17 19:40 Ur Epithelial Cells RARE /lpf (FEW) 02/20/17 19:40 Urine Bacteria NONE SEEN /hpf (NONE SEEN) 02/20/17 19:40 - Physical Exam Vitals and I&O: Vital Signs Temp 97.3 F 02/24/17 16:04 Pulse 88 02/24/17 16:04 Resp 18 02/24/17 16:04 BP 115/80 02/24/17 16:04 Pulse Ox 98 02/24/17 16:04 Intake & Output 02/24/17 02/24/17 02/25/17 06:59 18:59 06:59 Intake Total 250 410 Balance 250 410 Weight (lbs) 94 lb 94 lb Intake: Intake, IV Amount 50 50 Ampicillin Sodium/ 50 50 Sulbactam 1.5 gm In Sodium Chloride 0.9% 50 ml @ 50 mls/hr IV Q12HR [facility] Rx#:[id number] Oral 200 360 Other: # Voids 1 2 # Bowel Movements 0 1 Active Medications: Current Medications Amitriptyline HCl (Elavil) 10 mg PO BID [facility] PRN Reason: Protocol Stop: 04/23/17 16:59 Last Admin: 02/24/17 16:41 Dose: 10 mg Guaifenesin/Dextromethorphan (Robitussin Dm) 10 ml PO Q6HR PRN PRN Reason: Cough Stop: 04/22/17 19:18 Dextrose/Sodium Chloride (D5-0.9%Ns) 1,000 mls @ 50 mls/hr IV .Q20H [facility] Stop: 04/21/17 21:21 Last Admin: 02/24/17 01:24 Dose: 50 mls/hr Ampicillin Sodium/Sulbactam (Sodium 1.5 gm/ Sodium Chloride) 50 mls @ 50 mls/ hr IV Q12HR [facility] Stop: 04/22/17 10:59 Last Infusion: 02/24/17 18:30 Dose: Infused Insulin Aspart (Novolog Insulin Sliding Scale) 0 units SUBQ ACHS [facility] PRN Reason: Protocol Stop: 04/22/17 07:29 Last Admin: 02/24/17 17:16 Dose: 2 units Lactobacillus Rhamnosus (Culturelle) 1 each PO DAILY [facility] Stop: 04/25/17 08:59 Last Admin: 02/24/17 08:25 Dose: 1 each Levetiracetam (Keppra) 500 mg PO BID [facility] Stop: 04/22/17 08:59 Last Admin: 02/24/17 16:41 Dose: 500 mg Mineral Oil (Mineral Oil 30 Ml) 30 ml PO BID [facility] Stop: 04/25/17 16:59 Last Admin: 02/24/17 16:53 Dose: 30 ml Miscellaneous (Probiotic Screen) 1 ea MC PRN PRN PRN Reason: PROTOCOL Stop: 04/24/17 11:14 Morphine Sulfate (Morphine) 2 mg IVP Q4H PRN PRN Reason: Severe Pain Stop: 04/21/17 21:17 Last Admin: 02/24/17 16:40 Dose: 2 mg Multi-Ingredient Ointment (Pancrelipase 58905 U-5000 U-[id number] U) 1 ecc PO TIDWM [facility] Stop: 04/22/17 16:59 Last Admin: 02/24/17 16:41 Dose: 1 ecc Ondansetron HCl (Zofran) 4 mg IVP Q6H PRN PRN Reason: Nausea / Vomiting Stop: 04/21/17 21:17 Sodium Chloride (Saline Flush) 10 ml IV QSHIFT [facility] Stop: 04/22/17 07:59 Last Admin: 02/24/17 08:33 Dose: 10 ml Vitamin B Complex/Vit C/Folic Acid (Vitamin B Complex W/Vitamin C) 1 tab PO DAILY [facility] Stop: 04/22/17 08:59 Last Admin: 02/24/17 08:26 Dose: 1 tab General: alert HEENT: NC/AT, PERRLA Neck: Supple Lungs: CTAB Cardiovascular: RRR, without murmur Abdomen: soft, non-tender, non-distended Extremities: excoriation Neurological: alert - Procedures Procedures: Procedures Procedure Code Date ABDOMEN SURGERY PROCEDURE 29323 10/21/16 BLOOD TRANSFUSION SERVICE 84885 12/11/16 CONTROL BLEEDING IN GASTROINTESTINAL TRACT, ENDO [id number] 12/11/16 DILATION OF COMMON BILE DUCT WITH INTRALUMINAL DEVICE, ENDO [id number] 12/11/16 EGD BIOPSY SINGLE/MULTIPLE 55662 02/20/16 EGD CONTROL BLEEDING ANY 68515 12/11/16 ENDO CHOLANGIOPANCREATOGRAPH 66026 12/11/16 EXCISION OF DUODENUM, ENDO, DIAGN [id number] 02/20/16 EXCISION OF STOMACH, PYLORUS, ENDO, DIAGN [id number] 02/20/16 EXTIRPATION OF MATTER FROM COMMON BILE DUCT, ENDO [id number] 12/11/16 INTRODUCTION OF OTHER THERAPEUTIC SUBSTANCE INTO UP GI, ENDO 4R1X9VQ 12/11/16 INTRODUCTION OF SERUM/TOX/VACCINE INTO MUSCLE, PERC APPROACH [id number] 11/05/16 PERFORMANCE OF URINARY FILTRATION, MULTIPLE 5R8X23H 12/11/16 PERFORMANCE OF URINARY FILTRATION, SINGLE [id number] 11/05/16 RELEASE GREATER OMENTUM, OPEN APPROACH [id number] 10/21/16 RELEASE LIVER, OPEN APPROACH [id number] 10/21/16 REMOVAL OF GALLBLADDER 96471 10/21/16 RESECTION OF GALLBLADDER, OPEN APPROACH [id number] 10/21/16 TRANSFUSE NONAUT FRESH PLASMA IN PERIPH VEIN, PERC 78145Y2 12/11/16 TRANSFUSE NONAUT FROZEN PLASMA IN PERIPH VEIN, PERC 18290E2 12/11/16 TRANSFUSE NONAUT PLATELETS IN PERIPH VEIN, PERC 81746M9 12/11/16 TRANSFUSE NONAUT RED BLOOD CELLS IN PERIPH VEIN, PERC 49794O8 12/11/16 UPPR GI SCOPE W/SUBMUC INJ 85606 12/11/16 Internal Medicine Assmt/Plan - Assessment Assessment: Abdominal pain Chronic Pancreatitis Abdominal ileus ESRD on HD Abnormal lft DM-2 Legal blindness Bilateral hearing loss - Plan Plan: continue with HD seizure precautions monitor glucose level pain mgmt am labs continue current plan of care Nutritional Asmnt/Malnutr-PDOC - Dietary Evaluation Malnutrition Findings (Please click <Entered> for more info): Nutritional Asmnt/Malnutrition Start: 02/24/17 13: 31 Text: Status: Complete Freq: Document 02/24/17 13:32 PEDRO (Rec: 02/24/17 13:52 MPENAFUERT HAL -[id number]) Nutritional Asmnt/Malnutrition Patient General Information Nutritional Screening High Risk Screening Diagnosis Abd pain/ileus Pertinent Medical Hx/Surgical Hx End-stage liver Dz, DM, seizure disorder, legally blind, ESRD on HD, bilateral hearing loss, anemia per MD notes 02/23/17: KUB revealed gas/ mild ileus; LLE ultrasound revealed no evidence of BLE veins Subjective Information Pt seen for high risk trigger: BMI less than 18.5 kg/m2. Pt seen seemingly sleeping in bed. Pt seemed disinterested in engaging in RD verbal interview. Per RN, pt has little to no appetite. RN offered gelatin and apple juice earlier today, of which, pt tolerated well. Per RN, pt will have dialysis today, and regular dialysis days are Monday/Monday/Monday. Per EMR, bowel sounds hypoactive; abd is firm/soft/ non-tender. I/O: 1300/0 (+1300 ml) per 12 hours. Pt is not yet meeting optimal nutritional needs. Pt is not appropriate for nutrition education. Current Diet Order/ Nutrition Support Clear liquid Patient / S.O Can Pertinent Medications D5%/NaCl IV at 50 ml/hr (204 kcal/day), culturelle, VIT B complex/VIT C/folic acid Pertinent Labs BG 103 WNL, POC BG 101 WNL, BUN 43 H, CRE 8.9 H, K 3.2 L 02/22/17: AST 86 H, ALT 108 H, ALP 386 H Nutritional Hx/Data Height 5 ft Height (Calculated Centimeters) 152.4 Current Weight (lbs) 94 lb Weight (Calculated Kilograms) 42.6 Weight (Calculated Grams) 94192.7 [place] Body Weight 106 lb, 48 kg % [place] Body Weight 88 Weight Status Underweight GI Symptoms GI Symptoms Diarrhea Skin Integrity/Comment: RN reported R upper leg discoloration; fistula site; skin intact Current %PO Poor (25-49%) Estimated Nutritional Goals Calories/Kcals/Kg 30-35 kcal/kg IBW for wt gain promotion Kcals Calculated 8737-3070 kcal/day Protein g/k.2-1.5 gm/kg IBW for wt gain promotion/ESRD on HD Protein Calculated 58-75 gm/day Fluid: ml Per MD (ESRD) Nutritional Problem 2. Problem Problem Inadequate nutritional intakes Etiology related to gradual wt gain promotion Signs/Symptoms: as evidenced by poor appetite, and current clear liquid diet unable to meet optimal nutritional requirements. 1. Problem Problem Altered nutrition-related labs Etiology related to renal and liver dysfunction Signs/Symptoms: as evidenced by abnormal BUN, CRE, AST, ALT, and ALP lab values. Malnutrition Alert Body Fat Depletion (Non-Severe) Mild Depletion Muscle Mass (Non-Severe) Mild Depletion Is there a minimum of two criteria Yes selected? Query Text:Check all the applicable criteria. A minimum of two criteria are recommended for diagnosis of either severe or non-severe malnutrition. Malnutrition Related to Morbid Obesity Malnutrition related to morbid obesity No Intervention/Recommendation Recommendations by RD Increase Calorie Intake Protein supplementation Comments * Consider advance to CCHO-60 gm, renal diet if/when medically appropriate Expected Outcomes/Goals Expected Outcomes/Goals - Monitor advancement of diet, appetite, and PO intakes w/ goal of pt meeting at least 50 % of estimated nutritional needs, labs trending WNL, normal GI function, and skin integrity/wt maintenance withn 2-3 days 02/24/17 13:51 Dietitian Notes by Ma. Raquel Connelly Room/Bed: [facility] Dietitian Recommendation * Consider advance to CCHO-60 gm, renal diet if/when medically appropriate Please refer to Nutrition Assessment for details. Initialized on 02/24/17 13:51 - END OF NOTE
[2017-02-25] MEDS: Morphine Sulfate 2 mg/mL 1mL Syr IVP PRN ×3 (03:33→19:43)
[2017-02-25] MEDS: INSULIN ASPART SLIDING SCALE 100 UNITS/ML UNIT SUBQ SCH ×4 (06:50→21:05)
[2017-02-25 07:22] LABS: % BASOPHILS 0.7 % (0.0-2.0); % EOSINOPHILS 4.9 % (0.0-5.0); % LYMPHOCYTES 26.7 % (20.0-50.0); % MONOCYTES 7.3 % (2.0-10.0); % NEUTROPHILS 60.4 % (40.0-80.0); HEMATOCRIT 34.3 % (41.0-60); HEMOGLOBIN 11.7 gm/dL (12-16); MEAN CELL VOLUME 85.5 fl (80-99); MEAN CORPUSCULAR HEMOGLOBIN 29.2 pg (26.0-30.0); MEAN CORPUSCULAR HGB CONC 34.1 pg (28.0-36.0); MEAN PLATELET VOLUME 8.6 fl; RED BLOOD COUNT 4.01 Mil/cmm (4.30-5.70); RED CELL DISTRIBUTION WIDTH 13.2 % (11.5-20.0); WHITE BLOOD COUNT 6.6 Th/cmm (4.8-10.8)
[2017-02-25 07:32] LABS: PLATELET COUNT 100 Th/cmm (150-400)
[2017-02-25 07:42] LABS: ALB/GLOB RATIO 1.1 (1.0-1.8); ANION GAP 14.6 (7.0-16.0); BILIRUBIN,TOTAL 0.7 mg/dL (0.3-1.0); BUN/CREATININE RATIO 3.4; CALCIUM SERUM 8.8 mg/dL (8.6-10.3); CARBON DIOXIDE 25.4 mEq/L (21.0-31.0)
[2017-02-25] MEDS: Pancrelipase Cap ECC PO SCH ×3 (08:15→16:27)
[2017-02-25] MEDS: Vitamin B Complex w/Vitamin C Tab PO SCH (08:16)
[2017-02-25] MEDS: Lactobacillus Rhamnosus 10 Billion CFU Capsule PO SCH (08:16)
[2017-02-25 08:30] LABS: CREATININE - SERUM 6.5 mg/dL (0.7-1.3)
--- NOTE | 2017-02-25 10:44 | GI Progress Note ---
Subjective - Review of Systems Service Date: 02/25/17 Subjective: Sleeping, but reports pain is 10/ when he wakes. No vomiting. Objective - Results Result Diagrams: 02/25/17 06:10 02/25/17 06:10 Recent Labs: Laboratory Last Values WBC 6.6 Th/cmm (4.8-10.8) 02/25/17 06:10 RBC 4.01 Mil/cmm (4.30-5.70) L 02/25/17 06:10 Hgb 11.7 gm/dL (12-16) L 02/25/17 06:10 Hct 34.3 % (41.0-60) L 02/25/17 06:10 MCV 85.5 fl (80-99) 02/25/17 06:10 MCH 29.2 pg (26.0-30.0) 02/25/17 06:10 MCHC Differential 34.1 pg (28.0-36.0) 02/25/17 06:10 RDW 13.2 % (11.5-20.0) 02/25/17 06:10 Plt Count 100 Th/cmm (150-400) L D 02/25/17 06:10 MPV 8.6 fl 02/25/17 06:10 Neutrophils % 60.4 % (40.0-80.0) 02/25/17 06:10 Lymphocytes % 26.7 % (20.0-50.0) 02/25/17 06:10 Monocytes % 7.3 % (2.0-10.0) 02/25/17 06:10 Eosinophils % 4.9 % (0.0-5.0) 02/25/17 06:10 Basophils % 0.7 % (0.0-2.0) 02/25/17 06:10 PT 9.7 SECONDS (9.5-11.5) 02/20/17 17:15 INR 0.93 (0.5-1.4) 02/20/17 17:15 Sodium 138 mEq/L (136-145) 02/25/17 06:10 Potassium 3.0 mEq/L (3.5-5.1) L 02/25/17 06:10 Chloride 101 mEq/L (98-107) 02/25/17 06:10 Carbon Dioxide 25.4 mEq/L (21.0-31.0) 02/25/17 06:10 Anion Gap 14.6 (7.0-16.0) 02/25/17 06:10 BUN 22 mg/dL (7-25) 02/25/17 06:10 Creatinine 6.5 mg/dL (0.7-1.3) H* 02/25/17 06:10 Est GFR ( Amer) 12.8 ml/min (>90) 02/25/17 06:10 Est GFR (Non-Af Amer) 10.6 ml/min 02/25/17 06:10 BUN/Creatinine Ratio 3.4 02/25/17 06:10 Glucose 94 mg/dL (70-105) 02/25/17 06:10 POC Glucose 90 MG/DL (70 - 105) 02/25/17 06:16 Calcium 8.8 mg/dL (8.6-10.3) 02/25/17 06:10 Magnesium 2.4 mg/dL (1.9-2.7) 02/22/17 09:40 Total Bilirubin 0.7 mg/dL (0.3-1.0) 02/25/17 06:10 AST 44 U/L (13-39) H 02/25/17 06:10 ALT 69 U/L (7-52) H 02/25/17 06:10 Alkaline Phosphatase 296 U/L (34-104) H 02/25/17 06:10 Creatine Kinase 41 U/L (30-223) 02/20/17 17:15 Troponin I < 0.01 ng/mL (0.01-0.05) L 02/20/17 17:15 B-Natriuretic Peptide 114.0 pg/mL (5.0-100.0) H 02/20/17 17:15 Total Protein 6.6 gm/dL (6.0-8.3) 02/25/17 06:10 Albumin 3.5 gm/dL (4.2-5.5) L 02/25/17 06:10 Globulin 3.1 gm/dL 02/25/17 06:10 Albumin/Globulin Ratio 1.1 (1.0-1.8) 02/25/17 06:10 Triglycerides 97 mg/dL (<150) 02/22/17 09:40 Cholesterol 102 mg/dL (<200) 02/22/17 09:40 LDL Cholesterol Direct 30 mg/dL (75-193) L 02/22/17 09:40 HDL Cholesterol 52 mg/dL (23-92) 02/22/17 09:40 Amylase 157 U/L (29-103) H 02/22/17 09:40 Lipase 12 U/L (11-82) 02/25/17 06:10 Urine Source CLEAN C 02/20/17 19:40 Urine Color YELLOW 02/20/17 19:40 Urine Clarity CLEAR (CLEAR) 02/20/17 19:40 Urine pH 5.5 (4.6 - 8.0) 02/20/17 19:40 Ur Specific [place] 1.010 (1.005-1.030) 02/20/17 19:40 Urine Protein 100 mg/dL (NEGATIVE) H 02/20/17 19:40 Urine Glucose (UA) NEGATIVE mg/dL (NEGATIVE) 02/20/17 19:40 Urine Ketones NEGATIVE mg/dL (NEGATIVE) 02/20/17 19:40 Urine Blood TRACE (NEGATIVE) 02/20/17 19:40 Urine Nitrate NEGATIVE (NEGATIVE) 02/20/17 19:40 Urine Bilirubin NEGATIVE (NEGATIVE) 02/20/17 19:40 Urine Urobilinogen 0.2 E.U./dL (0.2 - 1.0) 02/20/17 19:40 Ur Leukocyte Esterase NEGATIVE (NEGATIVE) 02/20/17 19:40 Urine RBC 0-1 /hpf (0-5) 02/20/17 19:40 Urine WBC 0-2 /hpf (0-5) 02/20/17 19:40 Ur Epithelial Cells RARE /lpf (FEW) 02/20/17 19:40 Urine Bacteria NONE SEEN /hpf (NONE SEEN) 02/20/17 19:40 - Physical Exam Vitals and I&O: Vital Signs Temp 98.8 F 02/25/17 08:34 Pulse 92 02/25/17 08:34 Resp 16 02/25/17 08:34 BP 102/68 02/25/17 08:34 Pulse Ox 100 02/25/17 08:34 Intake & Output 02/24/17 02/25/17 02/25/17 18:59 06:59 18:59 Intake Total 410 1048.333 Balance 410 1048.333 Weight (lbs) 42.638 kg Intake: Intake, IV Amount 50 1048.333 Ampicillin Sodium/ 50 50 Sulbactam 1.5 gm In Sodium Chloride 0.9% 50 ml @ 50 mls/hr IV Q12HR [facility] Rx#:[id number] D5-0.9%Ns 1,000 ml @ 50 998.333 mls/hr IV .Q20H [facility] Rx#: [id number] Oral 360 Other: # Voids 2 # Bowel Movements 1 Active Medications: Current Medications Amitriptyline HCl (Elavil) 10 mg PO BID [facility] PRN Reason: Protocol Stop: 04/23/17 16:59 Last Admin: 02/25/17 08:16 Dose: Not Given Guaifenesin/Dextromethorphan (Robitussin Dm) 10 ml PO Q6HR PRN PRN Reason: Cough Stop: 04/22/17 19:18 Dextrose/Sodium Chloride (D5-0.9%Ns) 1,000 mls @ 50 mls/hr IV .Q20H [facility] Stop: 04/21/17 21:21 Last Admin: 02/24/17 21:22 Dose: 50 mls/hr Ampicillin Sodium/Sulbactam (Sodium 1.5 gm/ Sodium Chloride) 50 mls @ 50 mls/ hr IV Q12HR [facility] Stop: 04/22/17 10:59 Last Admin: 02/25/17 09:13 Dose: 50 mls/hr Insulin Aspart (Novolog Insulin Sliding Scale) 0 units SUBQ ACHS [facility] PRN Reason: Protocol Stop: 04/22/17 07:29 Last Admin: 02/25/17 06:50 Dose: Not Given Lactobacillus Rhamnosus (Culturelle) 1 each PO DAILY [facility] Stop: 04/25/17 08:59 Last Admin: 02/25/17 08:16 Dose: Not Given Levetiracetam (Keppra) 500 mg PO BID [facility] Stop: 04/22/17 08:59 Last Admin: 02/25/17 08:16 Dose: Not Given Mineral Oil (Mineral Oil 30 Ml) 30 ml PO BID [facility] Stop: 04/25/17 16:59 Last Admin: 02/25/17 08:16 Dose: Not Given Miscellaneous (Probiotic Screen) 1 ea MC PRN PRN PRN Reason: PROTOCOL Stop: 04/24/17 11:14 Morphine Sulfate (Morphine) 2 mg IVP Q4H PRN PRN Reason: Severe Pain Stop: 04/21/17 21:17 Last Admin: 02/25/17 03:33 Dose: 2 mg Multi-Ingredient Ointment (Pancrelipase 19653 U-5000 U-[id number] U) 1 ecc PO TIDWM [facility] Stop: 04/22/17 16:59 Last Admin: 02/25/17 08:15 Dose: Not Given Ondansetron HCl (Zofran) 4 mg IVP Q6H PRN PRN Reason: Nausea / Vomiting Stop: 04/21/17 21:17 Sodium Chloride (Saline Flush) 10 ml IV QSHIFT [facility] Stop: 04/22/17 07:59 Last Admin: 02/25/17 08:16 Dose: 10 ml Vitamin B Complex/Vit C/Folic Acid (Vitamin B Complex W/Vitamin C) 1 tab PO DAILY [facility] Stop: 04/22/17 08:59 Last Admin: 02/25/17 08:16 Dose: Not Given General: Alert, Oriented x3 Abdomen: Soft, Tender, Other (no guard or rebound) - Procedures Procedures: Procedures Procedure Code Date ABDOMEN SURGERY PROCEDURE 01926 10/21/16 BLOOD TRANSFUSION SERVICE 88322 12/11/16 CONTROL BLEEDING IN GASTROINTESTINAL TRACT, ENDO 1D6X4QD 12/11/16 DILATION OF COMMON BILE DUCT WITH INTRALUMINAL DEVICE, ENDO [id number] 12/11/16 EGD BIOPSY SINGLE/MULTIPLE 77414 02/20/16 EGD CONTROL BLEEDING ANY 60733 12/11/16 ENDO CHOLANGIOPANCREATOGRAPH 99839 12/11/16 EXCISION OF DUODENUM, ENDO, DIAGN [id number] 02/20/16 EXCISION OF STOMACH, PYLORUS, ENDO, DIAGN 5GI54UX 02/20/16 EXTIRPATION OF MATTER FROM COMMON BILE DUCT, ENDO [id number] 12/11/16 INTRODUCTION OF OTHER THERAPEUTIC SUBSTANCE INTO UP GI, ENDO [id number] 12/11/16 INTRODUCTION OF SERUM/TOX/VACCINE INTO MUSCLE, PERC APPROACH [id number] 11/05/16 PERFORMANCE OF URINARY FILTRATION, MULTIPLE 7H5G15T 12/11/16 PERFORMANCE OF URINARY FILTRATION, SINGLE 3T3O41W 11/05/16 RELEASE GREATER OMENTUM, OPEN APPROACH [id number] 10/21/16 RELEASE LIVER, OPEN APPROACH [id number] 10/21/16 REMOVAL OF GALLBLADDER 50674 10/21/16 RESECTION OF GALLBLADDER, OPEN APPROACH [id number] 10/21/16 TRANSFUSE NONAUT FRESH PLASMA IN PERIPH VEIN, PERC 51585U9 12/11/16 TRANSFUSE NONAUT FROZEN PLASMA IN PERIPH VEIN, PERC 40914F2 12/11/16 TRANSFUSE NONAUT PLATELETS IN PERIPH VEIN, PERC 38553G9 12/11/16 TRANSFUSE NONAUT RED BLOOD CELLS IN PERIPH VEIN, [facility] 73658Z6 12/11/16 UPPR GI SCOPE W/SUBMUC INJ 84439 12/11/16 Assessment/Plan - Problem List Patient Problems: All Active Problems COUGH WITH ABDOMINAL PAIN AND H/A (Acute) HEADACHE, ABDOMINAL PAIN, LEG PAIN (Acute) - Assessment Assessment: # Abd pain # Previous cholecystectomy # Previous choledocholithiasis # Previous sphincterotomy related bleeding # Chronic pancreatitis # ESRD on HD with failed transplant in past MRCP shows density in the gallbladder fossa of unknown origin. HIDA is now ordered to evaluate for any sign of bile leak (as this may be treatable with ERCP and repeat stenting). Pt pain has not improved with previous stent however. Recommendations: - f/u HIDA scan, if biliary leak, will conisder repeat ERCP and biliary stent - more likely this is pain related to chronic pancreatitis, which is very difficult to control. Neuromodulating agents such as gabapentin or lyrica may be of some benefit. May benefit from pain management consultation if HIDA negative
--- NOTE | 2017-02-25 13:18 | Internal Medicine Prog Note ---
Internal Medicine Subjective - Subjective Patient seen and examined:: with staff, chart reviewed Patient is:: awake, verbal Patient Complaints of:: congestion, constipation, other (right arm pain) Per staff patient has:: no adverse event, poor appetite, noncompliant, tolerating meds Internal Medicine Objective - Results Result Diagrams: 02/25/17 06:10 02/25/17 06:10 Recent Labs: Laboratory Last Values WBC 6.6 Th/cmm (4.8-10.8) 02/25/17 06:10 RBC 4.01 Mil/cmm (4.30-5.70) L 02/25/17 06:10 Hgb 11.7 gm/dL (12-16) L 02/25/17 06:10 Hct 34.3 % (41.0-60) L 02/25/17 06:10 MCV 85.5 fl (80-99) 02/25/17 06:10 MCH 29.2 pg (26.0-30.0) 02/25/17 06:10 MCHC Differential 34.1 pg (28.0-36.0) 02/25/17 06:10 RDW 13.2 % (11.5-20.0) 02/25/17 06:10 Plt Count 100 Th/cmm (150-400) L D 02/25/17 06:10 MPV 8.6 fl 02/25/17 06:10 Neutrophils % 60.4 % (40.0-80.0) 02/25/17 06:10 Lymphocytes % 26.7 % (20.0-50.0) 02/25/17 06:10 Monocytes % 7.3 % (2.0-10.0) 02/25/17 06:10 Eosinophils % 4.9 % (0.0-5.0) 02/25/17 06:10 Basophils % 0.7 % (0.0-2.0) 02/25/17 06:10 PT 9.7 SECONDS (9.5-11.5) 02/20/17 17:15 INR 0.93 (0.5-1.4) 02/20/17 17:15 Sodium 138 mEq/L (136-145) 02/25/17 06:10 Potassium 3.0 mEq/L (3.5-5.1) L 02/25/17 06:10 Chloride 101 mEq/L (98-107) 02/25/17 06:10 Carbon Dioxide 25.4 mEq/L (21.0-31.0) 02/25/17 06:10 Anion Gap 14.6 (7.0-16.0) 02/25/17 06:10 BUN 22 mg/dL (7-25) 02/25/17 06:10 Creatinine 6.5 mg/dL (0.7-1.3) H* 02/25/17 06:10 Est GFR ( Amer) 12.8 ml/min (>90) 02/25/17 06:10 Est GFR (Non-Af Amer) 10.6 ml/min 02/25/17 06:10 BUN/Creatinine Ratio 3.4 02/25/17 06:10 Glucose 94 mg/dL (70-105) 02/25/17 06:10 POC Glucose 107 MG/DL (70 - 105) H 02/25/17 11:33 Calcium 8.8 mg/dL (8.6-10.3) 02/25/17 06:10 Magnesium 2.4 mg/dL (1.9-2.7) 02/22/17 09:40 Total Bilirubin 0.7 mg/dL (0.3-1.0) 02/25/17 06:10 AST 44 U/L (13-39) H 02/25/17 06:10 ALT 69 U/L (7-52) H 02/25/17 06:10 Alkaline Phosphatase 296 U/L (34-104) H 02/25/17 06:10 Creatine Kinase 41 U/L (30-223) 02/20/17 17:15 Troponin I < 0.01 ng/mL (0.01-0.05) L 02/20/17 17:15 B-Natriuretic Peptide 114.0 pg/mL (5.0-100.0) H 02/20/17 17:15 Total Protein 6.6 gm/dL (6.0-8.3) 02/25/17 06:10 Albumin 3.5 gm/dL (4.2-5.5) L 02/25/17 06:10 Globulin 3.1 gm/dL 02/25/17 06:10 Albumin/Globulin Ratio 1.1 (1.0-1.8) 02/25/17 06:10 Triglycerides 97 mg/dL (<150) 02/22/17 09:40 Cholesterol 102 mg/dL (<200) 02/22/17 09:40 LDL Cholesterol Direct 30 mg/dL (75-193) L 02/22/17 09:40 HDL Cholesterol 52 mg/dL (23-92) 02/22/17 09:40 Amylase 157 U/L (29-103) H 02/22/17 09:40 Lipase 12 U/L (11-82) 02/25/17 06:10 Urine Source CLEAN C 02/20/17 19:40 Urine Color YELLOW 02/20/17 19:40 Urine Clarity CLEAR (CLEAR) 02/20/17 19:40 Urine pH 5.5 (4.6 - 8.0) 02/20/17 19:40 Ur Specific [place] 1.010 (1.005-1.030) 02/20/17 19:40 Urine Protein 100 mg/dL (NEGATIVE) H 02/20/17 19:40 Urine Glucose (UA) NEGATIVE mg/dL (NEGATIVE) 02/20/17 19:40 Urine Ketones NEGATIVE mg/dL (NEGATIVE) 02/20/17 19:40 Urine Blood TRACE (NEGATIVE) 02/20/17 19:40 Urine Nitrate NEGATIVE (NEGATIVE) 02/20/17 19:40 Urine Bilirubin NEGATIVE (NEGATIVE) 02/20/17 19:40 Urine Urobilinogen 0.2 E.U./dL (0.2 - 1.0) 02/20/17 19:40 Ur Leukocyte Esterase NEGATIVE (NEGATIVE) 02/20/17 19:40 Urine RBC 0-1 /hpf (0-5) 02/20/17 19:40 Urine WBC 0-2 /hpf (0-5) 02/20/17 19:40 Ur Epithelial Cells RARE /lpf (FEW) 02/20/17 19:40 Urine Bacteria NONE SEEN /hpf (NONE SEEN) 02/20/17 19:40 - Physical Exam Vitals and I&O: Vital Signs Temp 98.3 F 02/25/17 12:00 Pulse 77 02/25/17 12:00 Resp 16 02/25/17 12:00 BP 109/70 02/25/17 12:00 Pulse Ox 99 02/25/17 12:00 Intake & Output 02/24/17 02/25/1717 18:59 06:59 18:59 Intake Total 410 1048.333 Balance 410 1048.333 Weight (lbs) 42.638 kg Intake: Intake, IV Amount 50 1048.333 Ampicillin Sodium/ 50 50 Sulbactam 1.5 gm In Sodium Chloride 0.9% 50 ml @ 50 mls/hr IV Q12HR [facility] Rx#:[id number] D5-0.9%Ns 1,000 ml @ 50 998.333 mls/hr IV .Q20H [facility] Rx#: [id number] Oral 360 Other: # Voids 2 # Bowel Movements 1 Active Medications: Current Medications Amitriptyline HCl (Elavil) 10 mg PO BID [facility]HA PRN Reason: Protocol Stop: 04/23/17 16:59 Last Admin: 02/25/17 08:16 Dose: Not Given Guaifenesin/Dextromethorphan (Robitussin Dm) 10 ml PO Q6HR PRN PRN Reason: Cough Stop: 04/22/17 19:18 Dextrose/Sodium Chloride (D5-0.9%Ns) 1,000 mls @ 50 mls/hr IV .Q20H [facility] Stop: 04/21/17 21:21 Last Admin: 02/24/17 21:22 Dose: 50 mls/hr Ampicillin Sodium/Sulbactam (Sodium 1.5 gm/ Sodium Chloride) 50 mls @ 50 mls/ hr IV Q12HR [facility] Stop: 04/22/17 10:59 Last Admin: 02/25/17 09:13 Dose: 50 mls/hr Insulin Aspart (Novolog Insulin Sliding Scale) 0 units SUBQ ACHS RADHA PRN Reason: Protocol Stop: 04/22/17 07:29 Last Admin: 02/25/17 11:37 Dose: Not Given Lactobacillus Rhamnosus (Culturelle) 1 each PO DAILY [facility] Stop: 04/25/17 08:59 Last Admin: 02/25/17 08:16 Dose: Not Given Levetiracetam (Keppra) 500 mg PO BID [facility] Stop: 04/22/17 08:59 Last Admin: 02/25/17 08:16 Dose: Not Given Mineral Oil (Mineral Oil 30 Ml) 30 ml PO BID [facility] Stop: 04/25/17 16:59 Last Admin: 02/25/17 08:16 Dose: Not Given Miscellaneous (Probiotic Screen) 1 ea MC PRN PRN PRN Reason: PROTOCOL Stop: 04/24/17 11:14 Morphine Sulfate (Morphine) 2 mg IVP Q4H PRN PRN Reason: Severe Pain Stop: 04/21/17 21:17 Last Admin: 02/25/17 03:33 Dose: 2 mg Multi-Ingredient Ointment (Pancrelipase 67388 U-5000 U-80712 U) 1 ecc PO TIDWM [facility] Stop: 04/22/17 16:59 Last Admin: 02/25/17 08:15 Dose: Not Given Ondansetron HCl (Zofran) 4 mg IVP Q6H PRN PRN Reason: Nausea / Vomiting Stop: 04/21/17 21:17 Pregabalin (Lyrica) 75 mg PO BID [facility] Stop: 04/26/17 16:59 Sodium Chloride (Saline Flush) 10 ml IV QSHIFT [facility] Stop: 04/22/17 07:59 Last Admin: 02/25/17 08:16 Dose: 10 ml Vitamin B Complex/Vit C/Folic Acid (Vitamin B Complex W/Vitamin C) 1 tab PO DAILY [facility] Stop: 04/22/17 08:59 Last Admin: 02/25/17 08:16 Dose: Not Given General: alert, disheveled, appears older HEENT: NC/AT, PERRLA Neck: Supple Lungs: CTAB Cardiovascular: RRR, without murmur Abdomen: soft, non-tender, non-distended Extremities: excoriation Neurological: alert, lethargic - Procedures Procedures: Procedures Procedure Code Date ABDOMEN SURGERY PROCEDURE 73971 10/21/16 BLOOD TRANSFUSION SERVICE 03926 12/11/16 CONTROL BLEEDING IN GASTROINTESTINAL TRACT, ENDO [id number] 12/11/16 DILATION OF COMMON BILE DUCT WITH INTRALUMINAL DEVICE, ENDO 3I869WD 12/11/16 EGD BIOPSY SINGLE/MULTIPLE 73931 02/20/16 EGD CONTROL BLEEDING ANY 78480 12/11/16 ENDO CHOLANGIOPANCREATOGRAPH 54077 12/11/16 EXCISION OF DUODENUM, ENDO, DIAGN 4IO10GH 02/20/16 EXCISION OF STOMACH, PYLORUS, ENDO, DIAGN 3RB53MT 02/20/16 EXTIRPATION OF MATTER FROM COMMON BILE DUCT, ENDO 3CP04YF 12/11/16 INTRODUCTION OF OTHER THERAPEUTIC SUBSTANCE INTO UP GI, ENDO 0D9H9DG 12/11/16 INTRODUCTION OF SERUM/TOX/VACCINE INTO MUSCLE, PERC APPROACH 9I0707C 11/05/16 PERFORMANCE OF URINARY FILTRATION, MULTIPLE 4U0X27E 12/11/16 PERFORMANCE OF URINARY FILTRATION, SINGLE 0F4G37Z 11/05/16 RELEASE GREATER OMENTUM, OPEN APPROACH 5QTS8WE 10/21/16 RELEASE LIVER, OPEN APPROACH 4NW01RE 10/21/16 REMOVAL OF GALLBLADDER 84236 10/21/16 RESECTION OF GALLBLADDER, OPEN APPROACH [id number] 10/21/16 TRANSFUSE NONAUT FRESH PLASMA IN PERIPH VEIN, PERC 22953A7 12/11/16 TRANSFUSE NONAUT FROZEN PLASMA IN PERIPH VEIN, PERC 95995H9 12/11/16 TRANSFUSE NONAUT PLATELETS IN PERIPH VEIN, PERC 48486Z9 12/11/16 TRANSFUSE NONAUT RED BLOOD CELLS IN PERIPH VEIN, PERC 88914Q0 12/11/16 UPPR GI SCOPE W/SUBMUC INJ 50905 12/11/16 Internal Medicine Assmt/Plan - Assessment Assessment: Abdominal pain Chronic Pancreatitis Abdominal ileus ESRD on HD Abnormal lft DM-2 Legal blindness Bilateral hearing loss - Plan Plan: - Plan Plan: for hida will add bilateral venous doppler continue with HD seizure precautions monitor glucose level pain mgmt am labs continue current plan of care dw kenyetta quiroz and mother johnathan refeerred to psych as well 2 pain seeking behavior keyur rn Nutritional Asmnt/Malnutr-PDOC - Dietary Evaluation Malnutrition Findings (Please click <Entered> for more info): Nutritional Asmnt/Malnutrition Start: 02/24/17 13: 31 Text: Status: Complete Freq: Document 02/24/17 13:32 PEDRO (Rec: 02/24/17 13:52 MPENAFUMAIDA HONG -[id number]) Nutritional Asmnt/Malnutrition Patient General Information Nutritional Screening High Risk Screening Diagnosis Abd pain/ileus Pertinent Medical Hx/Surgical Hx End-stage liver Dz, DM, seizure disorder, legally blind, ESRD on HD, bilateral hearing loss, anemia per MD notes 02/23/17: KUB revealed gas/ mild ileus; LLE ultrasound revealed no evidence of BLE veins Subjective Information Pt seen for high risk trigger: BMI less than 18.5 kg/m2. Pt seen seemingly sleeping in bed. Pt seemed disinterested in engaging in RD verbal interview. Per RN, pt has little to no appetite. RN offered gelatin and apple juice earlier today, of which, pt tolerated well. Per RN, pt will have dialysis today, and regular dialysis days are Monday/Monday/Monday. Per EMR, bowel sounds hypoactive; abd is firm/soft/ non-tender. I/O: 1300/0 (+1300 ml) per 12 hours. Pt is not yet meeting optimal nutritional needs. Pt is not appropriate for nutrition education. Current Diet Order/ Nutrition Support Clear liquid Patient / S.O Can Pertinent Medications D5%/NaCl IV at 50 ml/hr (204 kcal/day), culturelle, VIT B complex/VIT C/folic acid Pertinent Labs BG 103 WNL, POC BG 101 WNL, BUN 43 H, CRE 8.9 H, K 3.2 L 02/22/17: AST 86 H, ALT 108 H, ALP 386 H Nutritional Hx/Data Height 1.52 m Height (Calculated Centimeters) 152.4 Current Weight (lbs) 42.638 kg Weight (Calculated Kilograms) 42.6 Weight (Calculated Grams) 65262.7 [place] Body Weight 106 lb, 48 kg % [place] Body Weight 88 Weight Status Underweight GI Symptoms GI Symptoms Diarrhea Skin Integrity/Comment: RN reported R upper leg discoloration; fistula site; skin intact Current %PO Poor (25-49%) Estimated Nutritional Goals Calories/Kcals/Kg 30-35 kcal/kg IBW for wt gain promotion Kcals Calculated 8832-1833 kcal/day Protein g/k.2-1.5 gm/kg IBW for wt gain promotion/ESRD on HD Protein Calculated 58-75 gm/day Fluid: ml Per MD (ESRD) Nutritional Problem 2. Problem Problem Inadequate nutritional intakes Etiology related to gradual wt gain promotion Signs/Symptoms: as evidenced by poor appetite, and current clear liquid diet unable to meet optimal nutritional requirements. 1. Problem Problem Altered nutrition-related labs Etiology related to renal and liver dysfunction Signs/Symptoms: as evidenced by abnormal BUN, CRE, AST, ALT, and ALP lab values. Malnutrition Alert Body Fat Depletion (Non-Severe) Mild Depletion Muscle Mass (Non-Severe) Mild Depletion Is there a minimum of two criteria Yes selected? Query Text:Check all the applicable criteria. A minimum of two criteria are recommended for diagnosis of either severe or non-severe malnutrition. Malnutrition Related to Morbid Obesity Malnutrition related to morbid obesity No Intervention/Recommendation Recommendations by RD Increase Calorie Intake Protein supplementation Comments * Consider advance to CCHO-60 gm, renal diet if/when medically appropriate Expected Outcomes/Goals Expected Outcomes/Goals - Monitor advancement of diet, appetite, and PO intakes w/ goal of pt meeting at least 50 % of estimated nutritional needs, labs trending WNL, normal GI function, and skin integrity/wt maintenance withn 2-3 days 02/24/17 13:51 Dietitian Notes by Ma. Raquel Connelly Room/Bed: [facility] Dietitian Recommendation * Consider advance to CCHO-60 gm, renal diet if/when medically appropriate Please refer to Nutrition Assessment for details. Initialized on 02/24/17 13:51 - END OF NOTE
[2017-02-25] MEDS: D5-0.9%NS 1,000 ML IV SCH (18:16)
--- NOTE | 2017-02-25 20:52 | Consultation ---
DATE OF CONSULTATION: 02/25/2017 HISTORY OF PRESENT ILLNESS: A 31-year-old male with end-stage liver disease on hemodialysis, status post failed renal transplant, history of laparoscopic cholecystectomy for cholecystitis and cholelithiasis, diabetes, seizure disorder, weakness, poor p.o. intake. On [id number], the patient well oriented. He states that he is feeling "okay," he denies depression, denies anxiety. He does get upset at times because of his medical problems. He states he is sleeping fairly well. PAST PSYCHIATRIC HISTORY: He denies. He denies any suicide history, has never been in a psych hospital. FAMILY HISTORY: Noncontributory. SOCIAL HISTORY: Born in [place] not . He states he is single, has no kids, living with mom and dad. PAST MEDICAL HISTORY: Please see full H and P. I did review notes from Dr. Davis and Dr. Trujillo. MEDICATIONS: Also noted. MENTAL STATUS EXAMINATION: Stated age, small statured male. Fair eye contact. Speech within normal limits. Mood "okay." Affect constricted. Thought processes were linear. No SI, no HI, no intent, no plan. No evidence of any psychotic symptoms. Insight and judgment seemed reasonable. PROVISIONAL DIAGNOSIS: Adjustment disorder with depressed mood. MEDICAL: Please see full H and P. RECOMMENDATIONS AND PLAN: Listened emphatically. We will monitor and follow up. No acute psychiatric interventions noted at this time. [facility]# [id number]
[2017-02-26] MEDS: Morphine Sulfate 2 mg/mL 1mL Syr IVP PRN ×4 (03:42→20:17)
[2017-02-26] MEDS: INSULIN ASPART SLIDING SCALE 100 UNITS/ML UNIT SUBQ SCH ×4 (06:51→21:33)
--- NOTE | 2017-02-26 08:25 | Diagnostic Imaging Report ---
Exam: Radionuclide HIDA scan. HISTORY: Bile leak. Findings: Utilizing 5.2 mCi of technetium 99 M mebrofenin examination of gallbladder was carried out. Delayed images at 28th hours status post injection of morphine were obtained. The study demonstrates normal uptake of the right midcervical throughout the liver parenchyma. Excretion of the radiopharmaceutical into the small bowel at 15 minutes appreciated. The gallbladder is not visualized consistent with previous surgical resection. There is no evidence for extravasation of radiopharmaceutical. IMPRESSION: Normal HIDA scan, status post cholecystectomy. There is no evidence for extravasation of the radiopharmaceutical.
[2017-02-26 09:22] LABS: % BASOPHILS 2.2 % (0.0-2.0); % EOSINOPHILS 5.6 % (0.0-5.0); % LYMPHOCYTES 26.1 % (20.0-50.0); % NEUTROPHILS 61.1 % (40.0-80.0); HEMATOCRIT 35.1 % (41.0-60); HEMOGLOBIN 11.7 gm/dL (12-16); MEAN CELL VOLUME 86.8 fl (80-99); MEAN CORPUSCULAR HGB CONC 33.4 pg (28.0-36.0); MEAN PLATELET VOLUME 8.7 fl; PLATELET COUNT 104 Th/cmm (150-400); RED BLOOD COUNT 4.04 Mil/cmm (4.30-5.70); RED CELL DISTRIBUTION WIDTH 13.4 % (11.5-20.0); WHITE BLOOD COUNT 6.5 Th/cmm (4.8-10.8)
[2017-02-26 09:39] LABS: BUN/CREATININE RATIO 3.4; CALCIUM SERUM 8.9 mg/dL (8.6-10.3); CARBON DIOXIDE 22.6 mEq/L (21.0-31.0); POTASSIUM SERUM 3.6 mEq/L (3.5-5.1)
[2017-02-26 09:44] LABS: CREATININE - SERUM 7.9 mg/dL (0.7-1.3)
[2017-02-26] MEDS: Lactobacillus Rhamnosus 10 Billion CFU Capsule PO SCH (10:03)
[2017-02-26] MEDS: Vitamin B Complex w/Vitamin C Tab PO SCH (10:03)
--- NOTE | 2017-02-26 10:11 | GI Progress Note ---
Subjective - Review of Systems Service Date: 02/26/17 Subjective: Notes abdominal pain is improved, tolerating liquids Objective - Results Result Diagrams: 02/26/17 09:15 02/26/17 09:15 Recent Labs: Laboratory Last Values WBC 6.5 Th/cmm (4.8-10.8) 02/26/17 09:15 RBC 4.04 Mil/cmm (4.30-5.70) L 02/26/17 09:15 Hgb 11.7 gm/dL (12-16) L 02/26/17 09:15 Hct 35.1 % (41.0-60) L 02/26/17 09:15 MCV 86.8 fl (80-99) 02/26/17 09:15 MCH 29.0 pg (26.0-30.0) 02/26/17 09:15 MCHC Differential 33.4 pg (28.0-36.0) 02/26/17 09:15 RDW 13.4 % (11.5-20.0) 02/26/17 09:15 Plt Count 104 Th/cmm (150-400) L 02/26/17 09:15 MPV 8.7 fl 02/26/17 09:15 Neutrophils % 61.1 % (40.0-80.0) 02/26/17 09:15 Lymphocytes % 26.1 % (20.0-50.0) 02/26/17 09:15 Monocytes % 5.0 % (2.0-10.0) 02/26/17 09:15 Eosinophils % 5.6 % (0.0-5.0) H 02/26/17 09:15 Basophils % 2.2 % (0.0-2.0) H 02/26/17 09:15 PT 9.7 SECONDS (9.5-11.5) 02/20/17 17:15 INR 0.93 (0.5-1.4) 02/20/17 17:15 Sodium 139 mEq/L (136-145) 02/26/17 09:15 Potassium 3.6 mEq/L (3.5-5.1) 02/26/17 09:15 Chloride 105 mEq/L (98-107) 02/26/17 09:15 Carbon Dioxide 22.6 mEq/L (21.0-31.0) 02/26/17 09:15 Anion Gap 15.0 (7.0-16.0) 02/26/17 09:15 BUN 27 mg/dL (7-25) H 02/26/17 09:15 Creatinine 7.9 mg/dL (0.7-1.3) H* 02/26/17 09:15 Est GFR ( Amer) 10.3 ml/min (>90) 02/26/17 09:15 Est GFR (Non-Af Amer) 8.5 ml/min 02/26/17 09:15 BUN/Creatinine Ratio 3.4 02/26/17 09:15 Glucose 107 mg/dL (70-105) H 02/26/17 09:15 POC Glucose 98 MG/DL (70 - 105) 02/26/17 06:50 Calcium 8.9 mg/dL (8.6-10.3) 02/26/17 09:15 Magnesium 2.4 mg/dL (1.9-2.7) 02/22/17 09:40 Total Bilirubin 0.7 mg/dL (0.3-1.0) 02/25/17 06:10 AST 44 U/L (13-39) H 02/25/17 06:10 ALT 69 U/L (7-52) H 02/25/17 06:10 Alkaline Phosphatase 296 U/L (34-104) H 02/25/17 06:10 Creatine Kinase 41 U/L (30-223) 02/20/17 17:15 Troponin I < 0.01 ng/mL (0.01-0.05) L 02/20/17 17:15 B-Natriuretic Peptide 114.0 pg/mL (5.0-100.0) H 02/20/17 17:15 Total Protein 6.6 gm/dL (6.0-8.3) 02/25/17 06:10 Albumin 3.5 gm/dL (4.2-5.5) L 02/25/17 06:10 Globulin 3.1 gm/dL 02/25/17 06:10 Albumin/Globulin Ratio 1.1 (1.0-1.8) 02/25/17 06:10 Triglycerides 97 mg/dL (<150) 02/22/17 09:40 Cholesterol 102 mg/dL (<200) 02/22/17 09:40 LDL Cholesterol Direct 30 mg/dL (75-193) L 02/22/17 09:40 HDL Cholesterol 52 mg/dL (23-92) 02/22/17 09:40 Amylase 157 U/L (29-103) H 02/22/17 09:40 Lipase 12 U/L (11-82) 02/25/17 06:10 Urine Source CLEAN C 02/20/17 19:40 Urine Color YELLOW 02/20/17 19:40 Urine Clarity CLEAR (CLEAR) 02/20/17 19:40 Urine pH 5.5 (4.6 - 8.0) 02/20/17 19:40 Ur Specific [place] 1.010 (1.005-1.030) 02/20/17 19:40 Urine Protein 100 mg/dL (NEGATIVE) H 02/20/17 19:40 Urine Glucose (UA) NEGATIVE mg/dL (NEGATIVE) 02/20/17 19:40 Urine Ketones NEGATIVE mg/dL (NEGATIVE) 02/20/17 19:40 Urine Blood TRACE (NEGATIVE) 02/20/17 19:40 Urine Nitrate NEGATIVE (NEGATIVE) 02/20/17 19:40 Urine Bilirubin NEGATIVE (NEGATIVE) 02/20/17 19:40 Urine Urobilinogen 0.2 E.U./dL (0.2 - 1.0) 02/20/17 19:40 Ur Leukocyte Esterase NEGATIVE (NEGATIVE) 02/20/17 19:40 Urine RBC 0-1 /hpf (0-5) 02/20/17 19:40 Urine WBC 0-2 /hpf (0-5) 02/20/17 19:40 Ur Epithelial Cells RARE /lpf (FEW) 02/20/17 19:40 Urine Bacteria NONE SEEN /hpf (NONE SEEN) 02/20/17 19:40 - Physical Exam Vitals and I&O: Vital Signs Temp 97.0 F 02/26/17 04:00 Pulse 76 02/26/17 04:00 Resp 18 02/26/17 04:00 BP 109/68 02/26/17 04:00 Pulse Ox 98 02/26/17 04:00 Intake & Output 02/25/17 02/26/17 02/26/17 18:59 06:59 18:59 Intake Total 1050 1107.5 Output Total 0 Balance 1050 1107.5 Weight (lbs) 43.545 kg Intake: Intake, IV Amount 1050 47.5 Ampicillin Sodium/ 50 Sulbactam 1.5 gm In Sodium Chloride 0.9% 50 ml @ 50 mls/hr IV Q12HR RADHA Rx#:[id number] D5-0.9%Ns 1,000 ml @ 50 1000 47.5 mls/hr IV .Q20H [facility]HA Rx#: [id number] Oral 1060 Output: Urine 0 Other: # Voids 0 # Bowel Movements 0 Active Medications: Current Medications Amitriptyline HCl (Elavil) 10 mg PO BID [facility]HA PRN Reason: Protocol Stop: 04/23/17 16:59 Last Admin: 02/26/17 10:04 Dose: 10 mg Guaifenesin/Dextromethorphan (Robitussin Dm) 10 ml PO Q6HR PRN PRN Reason: Cough Stop: 04/22/17 19:18 Dextrose/Sodium Chloride (D5-0.9%Ns) 1,000 mls @ 50 mls/hr IV .Q20H [facility] Stop: 04/21/17 21:21 Last Infusion: 02/25/17 19:13 Dose: 50 mls/hr Ampicillin Sodium/Sulbactam (Sodium 1.5 gm/ Sodium Chloride) 50 mls @ 50 mls/ hr IV Q12HR [facility] Stop: 04/22/17 10:59 Last Admin: 02/25/17 20:43 Dose: 50 mls/hr Insulin Aspart (Novolog Insulin Sliding Scale) 0 units SUBQ ACHS RADHA PRN Reason: Protocol Stop: 04/22/17 07:29 Last Admin: 02/26/17 06:51 Dose: Not Given Lactobacillus Rhamnosus (Culturelle) 1 each PO DAILY [facility] Stop: 04/25/17 08:59 Last Admin: 02/26/17 10:03 Dose: 1 each Levetiracetam (Keppra) 500 mg PO BID [facility] Stop: 04/22/17 08:59 Last Admin: 02/26/17 10:03 Dose: 500 mg Mineral Oil (Mineral Oil 30 Ml) 30 ml PO BID [facility] Stop: 04/25/17 16:59 Last Admin: 02/25/17 16:27 Dose: 30 ml Miscellaneous (Probiotic Screen) 1 ea MC PRN PRN PRN Reason: PROTOCOL Stop: 04/24/17 11:14 Morphine Sulfate (Morphine) 2 mg IVP Q4H PRN PRN Reason: Severe Pain Stop: 04/21/17 21:17 Last Admin: 02/26/17 03:42 Dose: 2 mg Multi-Ingredient Ointment (Pancrelipase 91914 U-5000 U-[id number] U) 1 ecc PO TIDWM [facility] Stop: 04/22/17 16:59 Last Admin: 02/25/17 16:27 Dose: 1 ecc Ondansetron HCl (Zofran) 4 mg IVP Q6H PRN PRN Reason: Nausea / Vomiting Stop: 04/21/17 21:17 Pregabalin (Lyrica) 75 mg PO BID [facility] Stop: 04/26/17 16:59 Last Admin: 02/26/17 10:03 Dose: 75 mg Sodium Chloride (Saline Flush) 10 ml IV QSHIFT [facility] Stop: 04/22/17 07:59 Last Admin: 02/25/17 21:09 Dose: 10 ml Vitamin B Complex/Vit C/Folic Acid (Vitamin B Complex W/Vitamin C) 1 tab PO DAILY [facility] Stop: 04/22/17 08:59 Last Admin: 02/26/17 10:03 Dose: 1 tab General: Alert, Oriented x3 Abdomen: Soft, Tender, Other (no guard or rebound) - Procedures Procedures: Procedures Procedure Code Date ABDOMEN SURGERY PROCEDURE 54646 10/21/16 BLOOD TRANSFUSION SERVICE 63532 12/11/16 CONTROL BLEEDING IN GASTROINTESTINAL TRACT, ENDO [id number] 12/11/16 DILATION OF COMMON BILE DUCT WITH INTRALUMINAL DEVICE, ENDO [id number] 12/11/16 EGD BIOPSY SINGLE/MULTIPLE 73852 02/20/16 EGD CONTROL BLEEDING ANY 56943 12/11/16 ENDO CHOLANGIOPANCREATOGRAPH 36727 12/11/16 EXCISION OF DUODENUM, ENDO, DIAGN [id number] 02/20/16 EXCISION OF STOMACH, PYLORUS, ENDO, DIAGN 7EU92GR 02/20/16 EXTIRPATION OF MATTER FROM COMMON BILE DUCT, ENDO [id number] 12/11/16 INTRODUCTION OF OTHER THERAPEUTIC SUBSTANCE INTO UP GI, ENDO 8J6B7HT 12/11/16 INTRODUCTION OF SERUM/TOX/VACCINE INTO MUSCLE, PERC APPROACH 8C6299G 11/05/16 PERFORMANCE OF URINARY FILTRATION, MULTIPLE 3U0W24B 12/11/16 PERFORMANCE OF URINARY FILTRATION, SINGLE 2J5V47W 11/05/16 RELEASE GREATER OMENTUM, OPEN APPROACH [id number] 10/21/16 RELEASE LIVER, OPEN APPROACH [id number] 10/21/16 REMOVAL OF GALLBLADDER 35648 10/21/16 RESECTION OF GALLBLADDER, OPEN APPROACH [id number] 10/21/16 TRANSFUSE NONAUT FRESH PLASMA IN PERIPH VEIN, PERC 85070B0 12/11/16 TRANSFUSE NONAUT FROZEN PLASMA IN PERIPH VEIN, PERC 25380K3 12/11/16 TRANSFUSE NONAUT PLATELETS IN PERIPH VEIN, PERC 79029K5 12/11/16 TRANSFUSE NONAUT RED BLOOD CELLS IN PERIPH VEIN, PERC 91197X4 12/11/16 UPPR GI SCOPE W/SUBMUC INJ 76680 12/11/16 Assessment/Plan - Problem List Patient Problems: All Active Problems COUGH WITH ABDOMINAL PAIN AND H/A (Acute) HEADACHE, ABDOMINAL PAIN, LEG PAIN (Acute) - Assessment Assessment: # Abd pain # Previous cholecystectomy # Previous choledocholithiasis # Previous sphincterotomy related bleeding # Chronic pancreatitis # ESRD on HD with failed transplant in past MRCP shows density in the gallbladder fossa of unknown origin. HIDA is negative for biliary leak. The gallbladder fossa density has unclear origin. Possibly hematoma vs gallbladder remnant? Unclear if this contributed to his pain and elevated LFTs (if this was an abscess, it is possible but rather unlikely) Recommendations: - repeat ERCP is not indicated given no evidence of leak on HIDA - more likely this is pain related to chronic pancreatitis, which is very difficult to control. Neuromodulating agents such as gabapentin or lyrica may be of some benefit. May benefit from pain management consultation if HIDA negative - advance diet as tolerated
[2017-02-26] MEDS: Pancrelipase Cap ECC PO SCH ×3 (10:23→18:04)
--- NOTE | 2017-02-26 11:39 | Internal Medicine Prog Note ---
Internal Medicine Subjective - Subjective Patient seen and examined:: with staff, chart reviewed Patient is:: awake, verbal Patient Complaints of:: congestion, constipation, other (right arm pain) Per staff patient has:: no adverse event, poor appetite, noncompliant, tolerating meds Internal Medicine Objective - Results Result Diagrams: 02/26/17 09:15 02/26/17 09:15 Recent Labs: Laboratory Last Values WBC 6.5 Th/cmm (4.8-10.8) 02/26/17 09:15 RBC 4.04 Mil/cmm (4.30-5.70) L 02/26/17 09:15 Hgb 11.7 gm/dL (12-16) L 02/26/17 09:15 Hct 35.1 % (41.0-60) L 02/26/17 09:15 MCV 86.8 fl (80-99) 02/26/17 09:15 MCH 29.0 pg (26.0-30.0) 02/26/17 09:15 MCHC Differential 33.4 pg (28.0-36.0) 02/26/17 09:15 RDW 13.4 % (11.5-20.0) 02/26/17 09:15 Plt Count 104 Th/cmm (150-400) L 02/26/17 09:15 MPV 8.7 fl 02/26/17 09:15 Neutrophils % 61.1 % (40.0-80.0) 02/26/17 09:15 Lymphocytes % 26.1 % (20.0-50.0) 02/26/17 09:15 Monocytes % 5.0 % (2.0-10.0) 02/26/17 09:15 Eosinophils % 5.6 % (0.0-5.0) H 02/26/17 09:15 Basophils % 2.2 % (0.0-2.0) H 02/26/17 09:15 PT 9.7 SECONDS (9.5-11.5) 02/20/17 17:15 INR 0.93 (0.5-1.4) 02/20/17 17:15 Sodium 139 mEq/L (136-145) 02/26/17 09:15 Potassium 3.6 mEq/L (3.5-5.1) 02/26/17 09:15 Chloride 105 mEq/L (98-107) 02/26/17 09:15 Carbon Dioxide 22.6 mEq/L (21.0-31.0) 02/26/17 09:15 Anion Gap 15.0 (7.0-16.0) 02/26/17 09:15 BUN 27 mg/dL (7-25) H 02/26/17 09:15 Creatinine 7.9 mg/dL (0.7-1.3) H* 02/26/17 09:15 Est GFR ( Amer) 10.3 ml/min (>90) 02/26/17 09:15 Est GFR (Non-Af Amer) 8.5 ml/min 02/26/17 09:15 BUN/Creatinine Ratio 3.4 02/26/17 09:15 Glucose 107 mg/dL (70-105) H 02/26/17 09:15 POC Glucose 98 MG/DL (70 - 105) 02/26/17 06:50 Calcium 8.9 mg/dL (8.6-10.3) 02/26/17 09:15 Magnesium 2.4 mg/dL (1.9-2.7) 02/22/17 09:40 Total Bilirubin 0.7 mg/dL (0.3-1.0) 02/25/17 06:10 AST 44 U/L (13-39) H 02/25/17 06:10 ALT 69 U/L (7-52) H 02/25/17 06:10 Alkaline Phosphatase 296 U/L (34-104) H 02/25/17 06:10 Creatine Kinase 41 U/L (30-223) 02/20/17 17:15 Troponin I < 0.01 ng/mL (0.01-0.05) L 02/20/17 17:15 B-Natriuretic Peptide 114.0 pg/mL (5.0-100.0) H 02/20/17 17:15 Total Protein 6.6 gm/dL (6.0-8.3) 02/25/17 06:10 Albumin 3.5 gm/dL (4.2-5.5) L 02/25/17 06:10 Globulin 3.1 gm/dL 02/25/17 06:10 Albumin/Globulin Ratio 1.1 (1.0-1.8) 02/25/17 06:10 Triglycerides 97 mg/dL (<150) 02/22/17 09:40 Cholesterol 102 mg/dL (<200) 02/22/17 09:40 LDL Cholesterol Direct 30 mg/dL (75-193) L 02/22/17 09:40 HDL Cholesterol 52 mg/dL (23-92) 02/22/17 09:40 Amylase 157 U/L (29-103) H 02/22/17 09:40 Lipase 12 U/L (11-82) 02/25/17 06:10 Urine Source CLEAN C 02/20/17 19:40 Urine Color YELLOW 02/20/17 19:40 Urine Clarity CLEAR (CLEAR) 02/20/17 19:40 Urine pH 5.5 (4.6 - 8.0) 02/20/17 19:40 Ur Specific [place] 1.010 (1.005-1.030) 02/20/17 19:40 Urine Protein 100 mg/dL (NEGATIVE) H 02/20/17 19:40 Urine Glucose (UA) NEGATIVE mg/dL (NEGATIVE) 02/20/17 19:40 Urine Ketones NEGATIVE mg/dL (NEGATIVE) 02/20/17 19:40 Urine Blood TRACE (NEGATIVE) 02/20/17 19:40 Urine Nitrate NEGATIVE (NEGATIVE) 02/20/17 19:40 Urine Bilirubin NEGATIVE (NEGATIVE) 02/20/17 19:40 Urine Urobilinogen 0.2 E.U./dL (0.2 - 1.0) 02/20/17 19:40 Ur Leukocyte Esterase NEGATIVE (NEGATIVE) 02/20/17 19:40 Urine RBC 0-1 /hpf (0-5) 02/20/17 19:40 Urine WBC 0-2 /hpf (0-5) 02/20/17 19:40 Ur Epithelial Cells RARE /lpf (FEW) 02/20/17 19:40 Urine Bacteria NONE SEEN /hpf (NONE SEEN) 02/20/17 19:40 - Physical Exam Vitals and I&O: Vital Signs Temp 97.0 F 02/26/17 04:00 Pulse 76 02/26/17 04:00 Resp 18 02/26/17 04:00 BP 109/68 02/26/17 04:00 Pulse Ox 98 02/26/17 04:00 Intake & Output 02/25/17 02/26/1702/26/17 18:59 06:59 18:59 Intake Total 1050 1157.5 Output Total 0 Balance 1050 1157.5 Weight (lbs) 43.545 kg Intake: Intake, IV Amount 1050 97.5 Ampicillin Sodium/ 50 50 Sulbactam 1.5 gm In Sodium Chloride 0.9% 50 ml @ 50 mls/hr IV Q12HR [facility] Rx#:[id number] D5-0.9%Ns 1,000 ml @ 50 1000 47.5 mls/hr IV .Q20H [facility] Rx#: [id number] Oral 1060 Output: Urine 0 Other: # Voids 0 # Bowel Movements 0 Active Medications: Current Medications Amitriptyline HCl (Elavil) 10 mg PO BID [facility] PRN Reason: Protocol Stop: 04/23/17 16:59 Last Admin: 02/26/17 10:04 Dose: 10 mg Guaifenesin/Dextromethorphan (Robitussin Dm) 10 ml PO Q6HR PRN PRN Reason: Cough Stop: 04/22/17 19:18 Dextrose/Sodium Chloride (D5-0.9%Ns) 1,000 mls @ 50 mls/hr IV .Q20H [facility] Stop: 04/21/17 21:21 Last Infusion: 02/25/17 19:13 Dose: 50 mls/hr Ampicillin Sodium/Sulbactam (Sodium 1.5 gm/ Sodium Chloride) 50 mls @ 50 mls/ hr IV Q12HR [facility] Stop: 04/22/17 10:59 Last Admin: 02/26/17 10:41 Dose: 50 mls/hr Insulin Aspart (Novolog Insulin Sliding Scale) 0 units SUBQ ACHS [facility] PRN Reason: Protocol Stop: 04/22/17 07:29 Last Admin: 02/26/17 06:51 Dose: Not Given Lactobacillus Rhamnosus (Culturelle) 1 each PO DAILY [facility] Stop: 04/25/17 08:59 Last Admin: 02/26/17 10:03 Dose: 1 each Levetiracetam (Keppra) 500 mg PO BID [facility] Stop: 04/22/17 08:59 Last Admin: 02/26/17 10:03 Dose: 500 mg Mineral Oil (Mineral Oil 30 Ml) 30 ml PO BID [facility] Stop: 04/25/17 16:59 Last Admin: 02/26/17 10:14 Dose: 30 ml Miscellaneous (Probiotic Screen) 1 ea MC PRN PRN PRN Reason: PROTOCOL Stop: 04/24/17 11:14 Morphine Sulfate (Morphine) 2 mg IVP Q4H PRN PRN Reason: Severe Pain Stop: 04/21/17 21:17 Last Admin: 02/26/17 10:07 Dose: 2 mg Multi-Ingredient Ointment (Pancrelipase 27649 U-5000 U-[id number] U) 1 ecc PO TIDWM [facility] Stop: 04/22/17 16:59 Last Admin: 02/26/17 10:23 Dose: 1 ecc Ondansetron HCl (Zofran) 4 mg IVP Q6H PRN PRN Reason: Nausea / Vomiting Stop: 04/21/17 21:17 Pregabalin (Lyrica) 75 mg PO BID [facility] Stop: 04/26/17 16:59 Last Admin: 02/26/17 10:03 Dose: 75 mg Sodium Chloride (Saline Flush) 10 ml IV QSHIFT [facility] Stop: 04/22/17 07:59 Last Admin: 02/26/17 10:13 Dose: 10 ml Vitamin B Complex/Vit C/Folic Acid (Vitamin B Complex W/Vitamin C) 1 tab PO DAILY [facility] Stop: 04/22/17 08:59 Last Admin: 02/26/17 10:03 Dose: 1 tab General: alert, disheveled, appears older HEENT: NC/AT, PERRLA Neck: Supple Lungs: CTAB Cardiovascular: RRR, without murmur Abdomen: soft, non-tender, non-distended Extremities: excoriation Neurological: alert, lethargic - Procedures Procedures: Procedures Procedure Code Date ABDOMEN SURGERY PROCEDURE 38945 10/21/16 BLOOD TRANSFUSION SERVICE 86112 12/11/16 CONTROL BLEEDING IN GASTROINTESTINAL TRACT, ENDO [id number] 12/11/16 DILATION OF COMMON BILE DUCT WITH INTRALUMINAL DEVICE, ENDO 9V351AV 12/11/16 EGD BIOPSY SINGLE/MULTIPLE 13815 02/20/16 EGD CONTROL BLEEDING ANY 93082 12/11/16 ENDO CHOLANGIOPANCREATOGRAPH 18923 12/11/16 EXCISION OF DUODENUM, ENDO, DIAGN 0MM65AV 02/20/16 EXCISION OF STOMACH, PYLORUS, ENDO, DIAGN 9HF09TG 02/20/16 EXTIRPATION OF MATTER FROM COMMON BILE DUCT, ENDO 9YA91DM 12/11/16 INTRODUCTION OF OTHER THERAPEUTIC SUBSTANCE INTO UP GI, ENDO 2I0T0PU 12/11/16 INTRODUCTION OF SERUM/TOX/VACCINE INTO MUSCLE, PERC APPROACH [id number] 11/05/16 PERFORMANCE OF URINARY FILTRATION, MULTIPLE 6G8U91T 12/11/16 PERFORMANCE OF URINARY FILTRATION, SINGLE 7B5I66M 11/05/16 RELEASE GREATER OMENTUM, OPEN APPROACH 7ECZ0HJ 10/21/16 RELEASE LIVER, OPEN APPROACH [id number] 10/21/16 REMOVAL OF GALLBLADDER 33289 10/21/16 RESECTION OF GALLBLADDER, OPEN APPROACH 7HW57YV 10/21/16 TRANSFUSE NONAUT FRESH PLASMA IN PERIPH VEIN, PERC 68205N4 12/11/16 TRANSFUSE NONAUT FROZEN PLASMA IN PERIPH VEIN, PERC 73230S7 12/11/16 TRANSFUSE NONAUT PLATELETS IN PERIPH VEIN, [facility] 08326D6 12/11/16 TRANSFUSE NONAUT RED BLOOD CELLS IN PERIPH VEIN, [facility] 74770B2 12/11/16 UPPR GI SCOPE W/SUBMUC INJ 39602 12/11/16 Internal Medicine Assmt/Plan - Assessment Assessment: Abdominal pain Chronic Pancreatitis Abdominal ileus ESRD on HD Abnormal lft DM-2 Legal blindness Bilateral hearing loss - Plan Plan: - Plan Plan: for hida--wnl will add bilateral venous doppler continue with HD seizure precautions monitor glucose level pain mgmt am labs continue current plan of care dw dr hicks, atil and mother johnathan refeerred to psych as well 2 pain seeking behavior keyur rn Nutritional Asmnt/Malnutr-PDOC - Dietary Evaluation Malnutrition Findings (Please click <Entered> for more info): Nutritional Asmnt/Malnutrition Start: 02/24/17 13: 31 Text: Status: Complete Freq: Document 02/24/17 13:32 PEDRO (Rec: 02/24/17 13:52 PEDRO [email or web address]) Nutritional Asmnt/Malnutrition Patient General Information Nutritional Screening High Risk Screening Diagnosis Abd pain/ileus Pertinent Medical Hx/Surgical Hx End-stage liver Dz, DM, seizure disorder, legally blind, ESRD on HD, bilateral hearing loss, anemia per MD notes 02/23/17: KUB revealed gas/ mild ileus; LLE ultrasound revealed no evidence of BLE veins Subjective Information Pt seen for high risk trigger: BMI less than 18.5 kg/m2. Pt seen seemingly sleeping in bed. Pt seemed disinterested in engaging in RD verbal interview. Per RN, pt has little to no appetite. RN offered gelatin and apple juice earlier today, of which, pt tolerated well. Per RN, pt will have dialysis today, and regular dialysis days are Monday/Monday/Monday. Per EMR, bowel sounds hypoactive; abd is firm/soft/ non-tender. I/O: 1300/0 (+1300 ml) per 12 hours. Pt is not yet meeting optimal nutritional needs. Pt is not appropriate for nutrition education. Current Diet Order/ Nutrition Support Clear liquid Patient / S.O Can Pertinent Medications D5%/NaCl IV at 50 ml/hr (204 kcal/day), culturelle, VIT B complex/VIT C/folic acid Pertinent Labs BG 103 WNL, POC BG 101 WNL, BUN 43 H, CRE 8.9 H, K 3.2 L 02/22/17: AST 86 H, ALT 108 H, ALP 386 H Nutritional Hx/Data Height 1.52 m Height (Calculated Centimeters) 152.4 Current Weight (lbs) 42.638 kg Weight (Calculated Kilograms) 42.6 Weight (Calculated Grams) 99421.7 [place] Body Weight 106 lb, 48 kg % [place] Body Weight 88 Weight Status Underweight GI Symptoms GI Symptoms Diarrhea Skin Integrity/Comment: RN reported R upper leg discoloration; fistula site; skin intact Current %PO Poor (25-49%) Estimated Nutritional Goals Calories/Kcals/Kg 30-35 kcal/kg IBW for wt gain promotion Kcals Calculated 4067-4324 kcal/day Protein g/k.2-1.5 gm/kg IBW for wt gain promotion/ESRD on HD Protein Calculated 58-75 gm/day Fluid: ml Per MD (ESRD) Nutritional Problem 2. Problem Problem Inadequate nutritional intakes Etiology related to gradual wt gain promotion Signs/Symptoms: as evidenced by poor appetite, and current clear liquid diet unable to meet optimal nutritional requirements. 1. Problem Problem Altered nutrition-related labs Etiology related to renal and liver dysfunction Signs/Symptoms: as evidenced by abnormal BUN, CRE, AST, ALT, and ALP lab values. Malnutrition Alert Body Fat Depletion (Non-Severe) Mild Depletion Muscle Mass (Non-Severe) Mild Depletion Is there a minimum of two criteria Yes selected? Query Text:Check all the applicable criteria. A minimum of two criteria are recommended for diagnosis of either severe or non-severe malnutrition. Malnutrition Related to Morbid Obesity Malnutrition related to morbid obesity No Intervention/Recommendation Recommendations by RD Increase Calorie Intake Protein supplementation Comments * Consider advance to CCHO-60 gm, renal diet if/when medically appropriate Expected Outcomes/Goals Expected Outcomes/Goals - Monitor advancement of diet, appetite, and PO intakes w/ goal of pt meeting at least 50 % of estimated nutritional needs, labs trending WNL, normal GI function, and skin integrity/wt maintenance withn 2-3 days 02/24/17 13:51 Dietitian Notes by Laurel Connelly. [facility] Room/Bed: [facility] Dietitian Recommendation * Consider advance to CCHO-60 gm, renal diet if/when medically appropriate Please refer to Nutrition Assessment for details. Initialized on 02/24/17 13:51 - END OF NOTE
[2017-02-26] MEDS: D5-0.9%NS 1,000 ML IV SCH ×2 (18:05→18:06)
[2017-02-27] MEDS: Morphine Sulfate 2 mg/mL 1mL Syr IVP PRN ×5 (01:37→19:52)
[2017-02-27] MEDS: INSULIN ASPART SLIDING SCALE 100 UNITS/ML UNIT SUBQ SCH ×4 (06:41→22:48)
[2017-02-27] MEDS: Lactobacillus Rhamnosus 10 Billion CFU Capsule PO SCH (08:17)
[2017-02-27] MEDS: Vitamin B Complex w/Vitamin C Tab PO SCH (08:17)
[2017-02-27] MEDS: Pancrelipase Cap ECC PO SCH ×3 (08:17→18:48)
--- NOTE | 2017-02-27 08:49 | General Progress Note ---
Subjective - Review of Systems Service Date: 02/27/17 Events since last encounter: no indication for surgical intervention Objective - Results Result Diagrams: 02/26/17 09:15 02/26/17 09:15 Recent Labs: Laboratory Last Values WBC 6.5 Th/cmm (4.8-10.8) 02/26/17 09:15 RBC 4.04 Mil/cmm (4.30-5.70) L 02/26/17 09:15 Hgb 11.7 gm/dL (12-16) L 02/26/17 09:15 Hct 35.1 % (41.0-60) L 02/26/17 09:15 MCV 86.8 fl (80-99) 02/26/17 09:15 MCH 29.0 pg (26.0-30.0) 02/26/17 09:15 MCHC Differential 33.4 pg (28.0-36.0) 02/26/17 09:15 RDW 13.4 % (11.5-20.0) 02/26/17 09:15 Plt Count 104 Th/cmm (150-400) L 02/26/17 09:15 MPV 8.7 fl 02/26/17 09:15 Neutrophils % 61.1 % (40.0-80.0) 02/26/17 09:15 Lymphocytes % 26.1 % (20.0-50.0) 02/26/17 09:15 Monocytes % 5.0 % (2.0-10.0) 02/26/17 09:15 Eosinophils % 5.6 % (0.0-5.0) H 02/26/17 09:15 Basophils % 2.2 % (0.0-2.0) H 02/26/17 09:15 PT 9.7 SECONDS (9.5-11.5) 02/20/17 17:15 INR 0.93 (0.5-1.4) 02/20/17 17:15 Sodium 139 mEq/L (136-145) 02/26/17 09:15 Potassium 3.6 mEq/L (3.5-5.1) 02/26/17 09:15 Chloride 105 mEq/L (98-107) 02/26/17 09:15 Carbon Dioxide 22.6 mEq/L (21.0-31.0) 10/22/17 09:15 Anion Gap 15.0 (7.0-16.0) 02/26/17 09:15 BUN 27 mg/dL (7-25) H 02/26/17 09:15 Creatinine 7.9 mg/dL (0.7-1.3) H* 02/26/17 09:15 Est GFR ( Amer) 10.3 ml/min (>90) 02/26/17 09:15 Est GFR (Non-Af Amer) 8.5 ml/min 02/26/17 09:15 BUN/Creatinine Ratio 3.4 02/26/17 09:15 Glucose 107 mg/dL (70-105) H 02/26/17 09:15 POC Glucose 94 MG/DL (70 - 105) 02/27/17 06:38 Calcium 8.9 mg/dL (8.6-10.3) 02/26/17 09:15 Magnesium 2.4 mg/dL (1.9-2.7) 02/22/17 09:40 Total Bilirubin 0.7 mg/dL (0.3-1.0) 02/25/17 06:10 AST 44 U/L (13-39) H 02/25/17 06:10 ALT 69 U/L (7-52) H 02/25/17 06:10 Alkaline Phosphatase 296 U/L (34-104) H 02/25/17 06:10 Creatine Kinase 41 U/L (30-223) 02/20/17 17:15 Troponin I < 0.01 ng/mL (0.01-0.05) L 02/20/17 17:15 B-Natriuretic Peptide 114.0 pg/mL (5.0-100.0) H 02/20/17 17:15 Total Protein 6.6 gm/dL (6.0-8.3) 02/25/17 06:10 Albumin 3.5 gm/dL (4.2-5.5) L 02/25/17 06:10 Globulin 3.1 gm/dL 02/25/17 06:10 Albumin/Globulin Ratio 1.1 (1.0-1.8) 02/25/17 06:10 Triglycerides 97 mg/dL (<150) 02/22/17 09:40 Cholesterol 102 mg/dL (<200) 02/22/17 09:40 LDL Cholesterol Direct 30 mg/dL (75-193) L 02/22/17 09:40 HDL Cholesterol 52 mg/dL (23-92) 02/22/17 09:40 Amylase 157 U/L (29-103) H 02/22/17 09:40 Lipase 12 U/L (11-82) 02/25/17 06:10 Urine Source CLEAN C 02/20/17 19:40 Urine Color YELLOW 02/20/17 19:40 Urine Clarity CLEAR (CLEAR) 02/20/17 19:40 Urine pH 5.5 (4.6 - 8.0) 02/20/17 19:40 Ur Specific [place] 1.010 (1.005-1.030) 02/20/17 19:40 Urine Protein 100 mg/dL (NEGATIVE) H 02/20/17 19:40 Urine Glucose (UA) NEGATIVE mg/dL (NEGATIVE) 02/20/17 19:40 Urine Ketones NEGATIVE mg/dL (NEGATIVE) 02/20/17 19:40 Urine Blood TRACE (NEGATIVE) 02/20/17 19:40 Urine Nitrate NEGATIVE (NEGATIVE) 02/20/17 19:40 Urine Bilirubin NEGATIVE (NEGATIVE) 02/20/17 19:40 Urine Urobilinogen 0.2 E.U./dL (0.2 - 1.0) 02/20/17 19:40 Ur Leukocyte Esterase NEGATIVE (NEGATIVE) 02/20/17 19:40 Urine RBC 0-1 /hpf (0-5) 02/20/17 19:40 Urine WBC 0-2 /hpf (0-5) 02/20/17 19:40 Ur Epithelial Cells RARE /lpf (FEW) 02/20/17 19:40 Urine Bacteria NONE SEEN /hpf (NONE SEEN) 02/20/17 19:40 - Physical Exam Vitals and I&O: Vital Signs Temp 98.4 F 02/27/17 04:00 Pulse 99 02/27/17 04:00 Resp 18 02/27/17 04:00 BP 132/86 02/27/17 04:00 Pulse Ox 97 02/27/17 04:00 Intake & Output 02/26/17 02/27/17 02/27/17 18:59 06:59 18:59 Intake Total 1203.333 Balance 1203.333 Weight (lbs) 43.726 kg 45.495 kg Intake: Intake, IV Amount 1003.333 Ampicillin Sodium/ 50 Sulbactam 1.5 gm In Sodium Chloride 0.9% 50 ml @ 50 mls/hr IV Q12HR [facility] Rx#:[id number] D5-0.9%Ns 1,000 ml @ 50 953.333 mls/hr IV .Q20H [facility] Rx#: [id number] Oral 200 Other: # Bowel Movements 1 Stool Characteristics Soft Liquid Active Medications: Current Medications Amitriptyline HCl (Elavil) 10 mg PO BID [facility] PRN Reason: Protocol Stop: 04/23/17 16:59 Last Admin: 02/27/17 08:17 Dose: 10 mg Guaifenesin/Dextromethorphan (Robitussin Dm) 10 ml PO Q6HR PRN PRN Reason: Cough Stop: 04/22/17 19:18 Dextrose/Sodium Chloride (D5-0.9%Ns) 1,000 mls @ 50 mls/hr IV .Q20H [facility] Stop: 04/21/17 21:21 Last Admin: 02/26/17 18:06 Dose: 50 mls/hr Ampicillin Sodium/Sulbactam (Sodium 1.5 gm/ Sodium Chloride) 50 mls @ 50 mls/ hr IV Q12HR [facility] Stop: 04/22/17 10:59 Last Admin: 02/26/17 20:17 Dose: 50 mls/hr Insulin Aspart (Novolog Insulin Sliding Scale) 0 units SUBQ ACHS [facility] PRN Reason: Protocol Stop: 04/22/17 07:29 Last Admin: 02/27/17 06:41 Dose: Not Given Lactobacillus Rhamnosus (Culturelle) 1 each PO DAILY [facility] Stop: 04/25/17 08:59 Last Admin: 02/27/17 08:17 Dose: 1 each Levetiracetam (Keppra) 500 mg PO BID [facility] Stop: 04/22/17 08:59 Last Admin: 02/27/17 08:17 Dose: 500 mg Mineral Oil (Mineral Oil 30 Ml) 30 ml PO BID [facility] Stop: 04/25/17 16:59 Last Admin: 02/27/17 08:20 Dose: 30 ml Miscellaneous (Probiotic Screen) 1 ea MC PRN PRN PRN Reason: PROTOCOL Stop: 04/24/17 11:14 Morphine Sulfate (Morphine) 2 mg IVP Q4H PRN PRN Reason: Severe Pain Stop: 04/21/17 21:17 Last Admin: 02/27/17 06:34 Dose: 2 mg Multi-Ingredient Ointment (Pancrelipase 53040 U-5000 U-[id number] U) 1 ecc PO TIDWM [facility] Stop: 04/22/17 16:59 Last Admin: 02/27/17 08:17 Dose: 1 ecc Ondansetron HCl (Zofran) 4 mg IVP Q6H PRN PRN Reason: Nausea / Vomiting Stop: 04/21/17 21:17 Pregabalin (Lyrica) 75 mg PO BID [facility] Stop: 04/26/17 16:59 Last Admin: 02/27/17 08:17 Dose: 75 mg Sodium Chloride (Saline Flush) 10 ml IV QSHIFT [facility] Stop: 04/22/17 07:59 Last Admin: 02/27/17 08:18 Dose: 10 ml Vitamin B Complex/Vit C/Folic Acid (Vitamin B Complex W/Vitamin C) 1 tab PO DAILY [facility] Stop: 04/22/17 08:59 Last Admin: 02/27/17 08:17 Dose: 1 tab General: Alert, Oriented x3 Abdomen: Soft, Tender, Other (no guard or rebound) - Procedures Procedures: Procedures Procedure Code Date ABDOMEN SURGERY PROCEDURE 68774 10/21/16 BLOOD TRANSFUSION SERVICE 81446 12/11/16 CONTROL BLEEDING IN GASTROINTESTINAL TRACT, ENDO [id number] 12/11/16 DILATION OF COMMON BILE DUCT WITH INTRALUMINAL DEVICE, ENDO 7N178XE 12/11/16 EGD BIOPSY SINGLE/MULTIPLE 96023 02/20/16 EGD CONTROL BLEEDING ANY 80055 12/11/16 ENDO CHOLANGIOPANCREATOGRAPH 22665 12/11/16 EXCISION OF DUODENUM, ENDO, DIAGN [id number] 02/20/16 EXCISION OF STOMACH, PYLORUS, ENDO, DIAGN 1YL54EM 02/20/16 EXTIRPATION OF MATTER FROM COMMON BILE DUCT, ENDO 0SE58KE 12/11/16 INTRODUCTION OF OTHER THERAPEUTIC SUBSTANCE INTO UP GI, ENDO 9N6K6KB 12/11/16 INTRODUCTION OF SERUM/TOX/VACCINE INTO MUSCLE, PERC APPROACH [id number] 11/05/16 PERFORMANCE OF URINARY FILTRATION, MULTIPLE 0Q2G99C 08/06/17 PERFORMANCE OF URINARY FILTRATION, SINGLE 2M3U33K 11/05/16 RELEASE GREATER OMENTUM, OPEN APPROACH 8UHS0HZ 10/21/16 RELEASE LIVER, OPEN APPROACH [id number] 10/21/16 REMOVAL OF GALLBLADDER 04883 10/21/16 RESECTION OF GALLBLADDER, OPEN APPROACH [id number] 10/21/16 TRANSFUSE NONAUT FRESH PLASMA IN PERIPH VEIN, PERC 25975T1 12/11/16 TRANSFUSE NONAUT FROZEN PLASMA IN PERIPH VEIN, PERC 54054V9 12/11/16 TRANSFUSE NONAUT PLATELETS IN PERIPH VEIN, PERC 59237Z4 12/11/16 TRANSFUSE NONAUT RED BLOOD CELLS IN PERIPH VEIN, PERC 27316A7 12/11/16 UPPR GI SCOPE W/SUBMUC INJ 95152 12/11/16 Assessment/Plan - Problem List Patient Problems: All Active Problems COUGH WITH ABDOMINAL PAIN AND H/A (Acute) HEADACHE, ABDOMINAL PAIN, LEG PAIN (Acute) Nutritional Asmnt/Malnutr-PDOC - Dietary Evaluation Malnutrition Findings (Please click <Entered> for more info): Nutritional Asmnt/Malnutrition Start: 02/24/17 13: 31 Text: Status: Complete Freq: Document 02/24/17 13:32 MPENAFUERT (Rec: 02/24/17 13:52 MPENAFUERT HAL -[email or web address]) Nutritional Asmnt/Malnutrition Patient General Information Nutritional Screening High Risk Screening Diagnosis Abd pain/ileus Pertinent Medical Hx/Surgical Hx End-stage liver Dz, DM, seizure disorder, legally blind, ESRD on HD, bilateral hearing loss, anemia per MD notes 02/23/17: KUB revealed gas/ mild ileus; LLE ultrasound revealed no evidence of BLE veins Subjective Information Pt seen for high risk trigger: BMI less than 18.5 kg/m2. Pt seen seemingly sleeping in bed. Pt seemed disinterested in engaging in RD verbal interview. Per RN, pt has little to no appetite. RN offered gelatin and apple juice earlier today, of which, pt tolerated well. Per RN, pt will have dialysis today, and regular dialysis days are Monday/Monday/Monday. Per EMR, bowel sounds hypoactive; abd is firm/soft/ non-tender. I/O: 1300/0 (+1300 ml) per 12 hours. Pt is not yet meeting optimal nutritional needs. Pt is not appropriate for nutrition education. Current Diet Order/ Nutrition Support Clear liquid Patient / S.O Can Pertinent Medications D5%/NaCl IV at 50 ml/hr (204 kcal/day), culturelle, VIT B complex/VIT C/folic acid Pertinent Labs BG 103 WNL, POC BG 101 WNL, BUN 43 H, CRE 8.9 H, K 3.2 L 02/22/17: AST 86 H, ALT 108 H, ALP 386 H Nutritional Hx/Data Height 1.52 m Height (Calculated Centimeters) 152.4 Current Weight (lbs) 42.638 kg Weight (Calculated Kilograms) 42.6 Weight (Calculated Grams) 38941.7 [place] Body Weight 106 lb, 48 kg % [place] Body Weight 88 Weight Status Underweight GI Symptoms GI Symptoms Diarrhea Skin Integrity/Comment: RN reported R upper leg discoloration; fistula site; skin intact Current %PO Poor (25-49%) Estimated Nutritional Goals Calories/Kcals/Kg 30-35 kcal/kg IBW for wt gain promotion Kcals Calculated 2689-0166 kcal/day Protein g/k.2-1.5 gm/kg IBW for wt gain promotion/ESRD on HD Protein Calculated 58-75 gm/day Fluid: ml Per MD (ESRD) Nutritional Problem 2. Problem Problem Inadequate nutritional intakes Etiology related to gradual wt gain promotion Signs/Symptoms: as evidenced by poor appetite, and current clear liquid diet unable to meet optimal nutritional requirements. 1. Problem Problem Altered nutrition-related labs Etiology related to renal and liver dysfunction Signs/Symptoms: as evidenced by abnormal BUN, CRE, AST, ALT, and ALP lab values. Malnutrition Alert Body Fat Depletion (Non-Severe) Mild Depletion Muscle Mass (Non-Severe) Mild Depletion Is there a minimum of two criteria Yes selected? Query Text:Check all the applicable criteria. A minimum of two criteria are recommended for diagnosis of either severe or non-severe malnutrition. Malnutrition Related to Morbid Obesity Malnutrition related to morbid obesity No Intervention/Recommendation Recommendations by RD Increase Calorie Intake Protein supplementation Comments * Consider advance to CCHO-60 gm, renal diet if/when medically appropriate Expected Outcomes/Goals Expected Outcomes/Goals - Monitor advancement of diet, appetite, and PO intakes w/ goal of pt meeting at least 50 % of estimated nutritional needs, labs trending WNL, normal GI function, and skin integrity/wt maintenance withn 2-3 days 02/24/17 13:51 Dietitian Notes by Laurel Connelly. Raquel Room/Bed: [facility] Dietitian Recommendation * Consider advance to CCHO-60 gm, renal diet if/when medically appropriate Please refer to Nutrition Assessment for details. Initialized on 02/24/17 13:51 - END OF NOTE
--- NOTE | 2017-02-27 08:58 | General Progress Note ---
Subjective - Review of Systems Service Date: 02/27/17 Events since last encounter: abdomen appears distended, labs ok discussed with Dr. Davis - will do CT with oral contrast Objective - Results Result Diagrams: 02/26/17 09:15 02/26/17 09:15 Recent Labs: Laboratory Last Values WBC 6.5 Th/cmm (4.8-10.8) 02/26/17 09:15 RBC 4.04 Mil/cmm (4.30-5.70) L 02/26/17 09:15 Hgb 11.7 gm/dL (12-16) L 02/26/17 09:15 Hct 35.1 % (41.0-60) L 02/26/17 09:15 MCV 86.8 fl (80-99) 02/26/17 09:15 MCH 29.0 pg (26.0-30.0) 02/26/17 09:15 MCHC Differential 33.4 pg (28.0-36.0) 02/26/17 09:15 RDW 13.4 % (11.5-20.0) 02/26/17 09:15 Plt Count 104 Th/cmm (150-400) L 02/26/17 09:15 MPV 8.7 fl 02/26/17 09:15 Neutrophils % 61.1 % (40.0-80.0) 02/26/17 09:15 Lymphocytes % 26.1 % (20.0-50.0) 02/26/17 09:15 Monocytes % 5.0 % (2.0-10.0) 02/26/17 09:15 Eosinophils % 5.6 % (0.0-5.0) H 02/26/17 09:15 Basophils % 2.2 % (0.0-2.0) H 02/26/17 09:15 PT 9.7 SECONDS (9.5-11.5) 02/20/17 17:15 INR 0.93 (0.5-1.4) 02/20/17 17:15 Sodium 139 mEq/L (136-145) 02/26/17 09:15 Potassium 3.6 mEq/L (3.5-5.1) 02/26/17 09:15 Chloride 105 mEq/L (98-107) 02/26/17 09:15 Carbon Dioxide 22.6 mEq/L (21.0-31.0) 02/26/17 09:15 Anion Gap 15.0 (7.0-16.0) 02/26/17 09:15 BUN 27 mg/dL (7-25) H 02/26/17 09:15 Creatinine 7.9 mg/dL (0.7-1.3) H* 02/26/17 09:15 Est GFR ( Amer) 10.3 ml/min (>90) 02/26/17 09:15 Est GFR (Non-Af Amer) 8.5 ml/min 02/26/17 09:15 BUN/Creatinine Ratio 3.4 02/26/17 09:15 Glucose 107 mg/dL (70-105) H 02/26/17 09:15 POC Glucose 94 MG/DL (70 - 105) 02/27/17 06:38 Calcium 8.9 mg/dL (8.6-10.3) 02/26/17 09:15 Magnesium 2.4 mg/dL (1.9-2.7) 02/22/17 09:40 Total Bilirubin 0.7 mg/dL (0.3-1.0) 02/25/17 06:10 AST 44 U/L (13-39) H 02/25/17 06:10 ALT 69 U/L (7-52) H 02/25/17 06:10 Alkaline Phosphatase 296 U/L (34-104) H 02/25/17 06:10 Creatine Kinase 41 U/L (30-223) 02/20/17 17:15 Troponin I < 0.01 ng/mL (0.01-0.05) L 02/20/17 17:15 B-Natriuretic Peptide 114.0 pg/mL (5.0-100.0) H 02/20/17 17:15 Total Protein 6.6 gm/dL (6.0-8.3) 02/25/17 06:10 Albumin 3.5 gm/dL (4.2-5.5) L 02/25/17 06:10 Globulin 3.1 gm/dL 02/25/17 06:10 Albumin/Globulin Ratio 1.1 (1.0-1.8) 02/25/17 06:10 Triglycerides 97 mg/dL (<150) 02/22/17 09:40 Cholesterol 102 mg/dL (<200) 02/22/17 09:40 LDL Cholesterol Direct 30 mg/dL (75-193) L 02/22/17 09:40 HDL Cholesterol 52 mg/dL (23-92) 02/22/17 09:40 Amylase 157 U/L (29-103) H 02/22/17 09:40 Lipase 12 U/L (11-82) 02/25/17 06:10 Urine Source CLEAN C 02/20/17 19:40 Urine Color YELLOW 02/20/17 19:40 Urine Clarity CLEAR (CLEAR) 02/20/17 19:40 Urine pH 5.5 (4.6 - 8.0) 02/20/17 19:40 Ur Specific [place] 1.010 (1.005-1.030) 02/20/17 19:40 Urine Protein 100 mg/dL (NEGATIVE) H 02/20/17 19:40 Urine Glucose (UA) NEGATIVE mg/dL (NEGATIVE) 02/20/17 19:40 Urine Ketones NEGATIVE mg/dL (NEGATIVE) 02/20/17 19:40 Urine Blood TRACE (NEGATIVE) 02/20/17 19:40 Urine Nitrate NEGATIVE (NEGATIVE) 02/20/17 19:40 Urine Bilirubin NEGATIVE (NEGATIVE) 02/20/17 19:40 Urine Urobilinogen 0.2 E.U./dL (0.2 - 1.0) 02/20/17 19:40 Ur Leukocyte Esterase NEGATIVE (NEGATIVE) 02/20/17 19:40 Urine RBC 0-1 /hpf (0-5) 02/20/17 19:40 Urine WBC 0-2 /hpf (0-5) 02/20/17 19:40 Ur Epithelial Cells RARE /lpf (FEW) 02/20/17 19:40 Urine Bacteria NONE SEEN /hpf (NONE SEEN) 02/20/17 19:40 - Physical Exam Vitals and I&O: Vital Signs Temp 98.4 F 02/27/17 04:00 Pulse 99 02/27/17 04:00 Resp 18 02/27/17 04:00 BP 132/86 02/27/17 04:00 Pulse Ox 97 02/27/17 04:00 Intake & Output 02/26/17 02/27/17 02/27/17 18:59 06:59 18:59 Intake Total 1203.333 Balance 1203.333 Weight (lbs) 43.726 kg 45.495 kg Intake: Intake, IV Amount 1003.333 Ampicillin Sodium/ 50 Sulbactam 1.5 gm In Sodium Chloride 0.9% 50 ml @ 50 mls/hr IV Q12HR [facility] Rx#:[id number] D5-0.9%Ns 1,000 ml @ 50 953.333 mls/hr IV .Q20H [facility]HA Rx#: [id number] Oral 200 Other: # Bowel Movements 1 Stool Characteristics Soft Liquid Active Medications: Current Medications Amitriptyline HCl (Elavil) 10 mg PO BID [facility]HA PRN Reason: Protocol Stop: 04/23/17 16:59 Last Admin: 02/27/17 08:17 Dose: 10 mg Guaifenesin/Dextromethorphan (Robitussin Dm) 10 ml PO Q6HR PRN PRN Reason: Cough Stop: 04/22/17 19:18 Dextrose/Sodium Chloride (D5-0.9%Ns) 1,000 mls @ 50 mls/hr IV .Q20H [facility] Stop: 04/21/17 21:21 Last Admin: 02/26/17 18:06 Dose: 50 mls/hr Ampicillin Sodium/Sulbactam (Sodium 1.5 gm/ Sodium Chloride) 50 mls @ 50 mls/ hr IV Q12HR [facility] Stop: 04/22/17 10:59 Last Admin: 02/26/17 20:17 Dose: 50 mls/hr Insulin Aspart (Novolog Insulin Sliding Scale) 0 units SUBQ ACHS RADHA PRN Reason: Protocol Stop: 04/22/17 07:29 Last Admin: 02/27/17 06:41 Dose: Not Given Lactobacillus Rhamnosus (Culturelle) 1 each PO DAILY [facility] Stop: 04/25/17 08:59 Last Admin: 02/27/17 08:17 Dose: 1 each Levetiracetam (Keppra) 500 mg PO BID [facility] Stop: 04/22/17 08:59 Last Admin: 02/27/17 08:17 Dose: 500 mg Mineral Oil (Mineral Oil 30 Ml) 30 ml PO BID [facility] Stop: 04/25/17 16:59 Last Admin: 02/27/17 08:20 Dose: 30 ml Miscellaneous (Probiotic Screen) 1 ea MC PRN PRN PRN Reason: PROTOCOL Stop: 04/24/17 11:14 Morphine Sulfate (Morphine) 2 mg IVP Q4H PRN PRN Reason: Severe Pain Stop: 04/21/17 21:17 Last Admin: 02/27/17 06:34 Dose: 2 mg Multi-Ingredient Ointment (Pancrelipase 97316 U-5000 U-10210 U) 1 ecc PO TIDWM RADHA Stop: 04/22/17 16:59 Last Admin: 02/27/17 08:17 Dose: 1 ecc Ondansetron HCl (Zofran) 4 mg IVP Q6H PRN PRN Reason: Nausea / Vomiting Stop: 04/21/17 21:17 Pregabalin (Lyrica) 75 mg PO BID [facility] Stop: 04/26/17 16:59 Last Admin: 02/27/17 08:17 Dose: 75 mg Sodium Chloride (Saline Flush) 10 ml IV QSHIFT [facility] Stop: 04/22/17 07:59 Last Admin: 02/27/17 08:18 Dose: 10 ml Vitamin B Complex/Vit C/Folic Acid (Vitamin B Complex W/Vitamin C) 1 tab PO DAILY [facility] Stop: 04/22/17 08:59 Last Admin: 02/27/17 08:17 Dose: 1 tab General: Alert, Oriented x3 Abdomen: Soft, Tender, Other (no guard or rebound) - Procedures Procedures: Procedures Procedure Code Date ABDOMEN SURGERY PROCEDURE 05980 10/21/16 BLOOD TRANSFUSION SERVICE 22861 12/11/16 CONTROL BLEEDING IN GASTROINTESTINAL TRACT, ENDO [id number] 12/11/16 DILATION OF COMMON BILE DUCT WITH INTRALUMINAL DEVICE, ENDO [id number] 12/11/16 EGD BIOPSY SINGLE/MULTIPLE 20679 02/20/16 EGD CONTROL BLEEDING ANY 13904 12/11/16 ENDO CHOLANGIOPANCREATOGRAPH 17350 12/11/16 EXCISION OF DUODENUM, ENDO, DIAGN [id number] 02/20/16 EXCISION OF STOMACH, PYLORUS, ENDO, DIAGN [id number] 02/20/16 EXTIRPATION OF MATTER FROM COMMON BILE DUCT, ENDO [id number] 12/11/16 INTRODUCTION OF OTHER THERAPEUTIC SUBSTANCE INTO UP GI, ENDO [id number] 12/11/16 INTRODUCTION OF SERUM/TOX/VACCINE INTO MUSCLE, PERC APPROACH [id number] 07/01/17 PERFORMANCE OF URINARY FILTRATION, MULTIPLE [id number] 12/11/16 PERFORMANCE OF URINARY FILTRATION, SINGLE [id number] 11/05/16 RELEASE GREATER OMENTUM, OPEN APPROACH [id number] 10/21/16 RELEASE LIVER, OPEN APPROACH [id number] 10/21/16 REMOVAL OF GALLBLADDER 44071 10/21/16 RESECTION OF GALLBLADDER, OPEN APPROACH [id number] 10/21/16 TRANSFUSE NONAUT FRESH PLASMA IN PERIPH VEIN, PERC 56588O6 12/11/16 TRANSFUSE NONAUT FROZEN PLASMA IN PERIPH VEIN, PERC 15740R2 12/11/16 TRANSFUSE NONAUT PLATELETS IN PERIPH VEIN, PERC 00158I5 12/11/16 TRANSFUSE NONAUT RED BLOOD CELLS IN PERIPH VEIN, PERC 05385I0 12/11/16 UPPR GI SCOPE W/SUBMUC INJ 91543 12/11/16 Assessment/Plan - Problem List Patient Problems: All Active Problems COUGH WITH ABDOMINAL PAIN AND H/A (Acute) HEADACHE, ABDOMINAL PAIN, LEG PAIN (Acute) Nutritional Asmnt/Malnutr-PDOC - Dietary Evaluation Malnutrition Findings (Please click <Entered> for more info): Nutritional Asmnt/Malnutrition Start: 02/24/17 13: 31 Text: Status: Complete Freq: Document 02/24/17 13:32 PEDRO (Rec: 02/24/17 13:52 MPENAFUMAIDA HONG -[id number]) Nutritional Asmnt/Malnutrition Patient General Information Nutritional Screening High Risk Screening Diagnosis Abd pain/ileus Pertinent Medical Hx/Surgical Hx End-stage liver Dz, DM, seizure disorder, legally blind, ESRD on HD, bilateral hearing loss, anemia per MD notes 02/23/17: KUB revealed gas/ mild ileus; LLE ultrasound revealed no evidence of BLE veins Subjective Information Pt seen for high risk trigger: BMI less than 18.5 kg/m2. Pt seen seemingly sleeping in bed. Pt seemed disinterested in engaging in RD verbal interview. Per RN, pt has little to no appetite. RN offered gelatin and apple juice earlier today, of which, pt tolerated well. Per RN, pt will have dialysis today, and regular dialysis days are Monday/Monday/Monday. Per EMR, bowel sounds hypoactive; abd is firm/soft/ non-tender. I/O: 1300/0 (+1300 ml) per 12 hours. Pt is not yet meeting optimal nutritional needs. Pt is not appropriate for nutrition education. Current Diet Order/ Nutrition Support Clear liquid Patient / S.O Can Pertinent Medications D5%/NaCl IV at 50 ml/hr (204 kcal/day), culturelle, VIT B complex/VIT C/folic acid Pertinent Labs BG 103 WNL, POC BG 101 WNL, BUN 43 H, CRE 8.9 H, K 3.2 L 02/22/17: AST 86 H, ALT 108 H, ALP 386 H Nutritional Hx/Data Height 1.52 m Height (Calculated Centimeters) 152.4 Current Weight (lbs) 42.638 kg Weight (Calculated Kilograms) 42.6 Weight (Calculated Grams) 63940.7 [place] Body Weight 106 lb, 48 kg % [place] Body Weight 88 Weight Status Underweight GI Symptoms GI Symptoms Diarrhea Skin Integrity/Comment: RN reported R upper leg discoloration; fistula site; skin intact Current %PO Poor (25-49%) Estimated Nutritional Goals Calories/Kcals/Kg 30-35 kcal/kg IBW for wt gain promotion Kcals Calculated 9207-5440 kcal/day Protein g/k.2-1.5 gm/kg IBW for wt gain promotion/ESRD on HD Protein Calculated 58-75 gm/day Fluid: ml Per MD (ESRD) Nutritional Problem 2. Problem Problem Inadequate nutritional intakes Etiology related to gradual wt gain promotion Signs/Symptoms: as evidenced by poor appetite, and current clear liquid diet unable to meet optimal nutritional requirements. 1. Problem Problem Altered nutrition-related labs Etiology related to renal and liver dysfunction Signs/Symptoms: as evidenced by abnormal BUN, CRE, AST, ALT, and ALP lab values. Malnutrition Alert Body Fat Depletion (Non-Severe) Mild Depletion Muscle Mass (Non-Severe) Mild Depletion Is there a minimum of two criteria Yes selected? Query Text:Check all the applicable criteria. A minimum of two criteria are recommended for diagnosis of either severe or non-severe malnutrition. Malnutrition Related to Morbid Obesity Malnutrition related to morbid obesity No Intervention/Recommendation Recommendations by RD Increase Calorie Intake Protein supplementation Comments * Consider advance to CCHO-60 gm, renal diet if/when medically appropriate Expected Outcomes/Goals Expected Outcomes/Goals - Monitor advancement of diet, appetite, and PO intakes w/ goal of pt meeting at least 50 % of estimated nutritional needs, labs trending WNL, normal GI function, and skin integrity/wt maintenance withn 2-3 days 02/24/17 13:51 Dietitian Notes by Laurel Connelly. [facility] Room/Bed: [facility] Dietitian Recommendation * Consider advance to CCHO-60 gm, renal diet if/when medically appropriate Please refer to Nutrition Assessment for details. Initialized on 02/24/17 13:51 - END OF NOTE
[2017-02-27] MEDS ORDERED: Diatrizoate Meglumine/Diatri 30 mL Sol PO ONE (10:00)
--- NOTE | 2017-02-27 17:14 | Progress Notes ---
DATE: 02/27/2017 HISTORY OF PRESENT ILLNESS: The patient is a 31-year-old male with end-stage liver disease, on hemodialysis, status post failed renal transplant; history of laparoscopic cholecystectomy. On [id number], he states he is feeling "okay." Denies depression. Denies anxiety. States he is hopeful, motivated. PAST PSYCHIATRIC HISTORY: Denies. SOCIAL HISTORY: Noted. MENTAL STATUS EXAMINATION: Stated age, fair eye contact. Mood is "okay." Affect constricted. Thought processes were linear. No SI. No SI. No evidence of any psychosis. PROVISIONAL DIAGNOSIS: Adjustment disorder with depressed mood. RECOMMENDATIONS AND PLAN: We will monitor and follow up. The patient is doing well. [facility]# [id number]
[2017-02-27] MEDS ORDERED: MINERAL OIL ENEMA 135 ML BOTTLE RC ONE (17:57)
[2017-02-27] MEDS: D5-0.9%NS 1,000 ML IV SCH (18:52)
[2017-02-28] MEDS: Morphine Sulfate 2 mg/mL 1mL Syr IVP PRN ×4 (00:15→19:53)
[2017-02-28 06:29] LABS: % EOSINOPHILS 6.8 % (0.0-5.0); % LYMPHOCYTES 34.6 % (20.0-50.0); % MONOCYTES 5.7 % (2.0-10.0); % NEUTROPHILS 51.9 % (40.0-80.0); HEMATOCRIT 32.6 % (41.0-60); MEAN CELL VOLUME 87.2 fl (80-99); MEAN CORPUSCULAR HEMOGLOBIN 29.4 pg (26.0-30.0); MEAN CORPUSCULAR HGB CONC 33.7 pg (28.0-36.0); MEAN PLATELET VOLUME 7.9 fl; NEUTROPHILE ABSOLUTE 3.4 Th/cmm (1.8-8.0); PLATELET COUNT 124 Th/cmm (150-400); RED BLOOD COUNT 3.74 Mil/cmm (4.30-5.70); RED CELL DISTRIBUTION WIDTH 12.9 % (11.5-20.0); WHITE BLOOD COUNT 6.8 Th/cmm (4.8-10.8)
[2017-02-28 06:49] LABS: ALB/GLOB RATIO 1.1 (1.0-1.8); BILIRUBIN,TOTAL 0.7 mg/dL (0.3-1.0); BUN/CREATININE RATIO 2.9; CALCIUM SERUM 8.9 mg/dL (8.6-10.3); CARBON DIOXIDE 24.3 mEq/L (21.0-31.0); POTASSIUM SERUM 3.3 mEq/L (3.5-5.1)
[2017-02-28 07:02] LABS: CREATININE - SERUM 7.9 mg/dL (0.7-1.3)
[2017-02-28] MEDS: INSULIN ASPART SLIDING SCALE 100 UNITS/ML UNIT SUBQ SCH ×4 (07:05→21:48)
--- NOTE | 2017-02-28 07:47 | Diagnostic Imaging Report ---
Exam CT examination of the abdomen pelvis. HISTORY abdominal pain Total DLP equals 254 CTDI equals 5.4 Findings: Multiple contiguous thin section of the abdomen pelvis obtained from lower thorax to pubic symphysis with administration of oral contrast. Intravenous contrast was not utilized. The study compared to the prior examination of 02/20/2017 The study demonstrates a lateral basilar atelectasis versus pneumonic infiltrates with pleural thickening. Clinical correlation recommended. The liver and spleen are intact. The kidneys are atrophic bilaterally with hydronephrosis. The gallbladder has been surgically resected. The pancreas poorly seen. There is evidence for retroperitoneal adenopathy. There is evidence for right lower quadrant transplant kidney with hydronephrosis. There is evidence of several calculi within the right transplanted kidney largest one measuring 1.2 cm diameter. There is severely distended uterine bladder placement of 40 catheter is recommended. Large amount of fecal content is seen impaction the rectum. Vascular calcifications are noted. Oral contrast progresses through small bowel loops in the colon. There is no evidence of obstruction. IMPRESSION: 1. Severely distended urinary bladder recommended for catheter placement. 2. Right lower quadrant renal transplant with moderate hydronephrosis and nephrolithiasis. 3. Fecal impaction. 4. Status post cholecystectomy. 5. Basilar atelectasis versus bilateral pneumonia with superimposed pleural thickening. Clinical correlation is recommended.
--- NOTE | 2017-02-28 08:36 | General Progress Note ---
Subjective - Review of Systems Service Date: 02/28/17 Events since last encounter: CT noted sanabria inserted, no return has fecal impaction Objective - Results Result Diagrams: 02/28/17 06:15 02/28/17 06:15 Recent Labs: Laboratory Last Values WBC 6.8 Th/cmm (4.8-10.8) 02/28/17 06:15 RBC 3.74 Mil/cmm (4.30-5.70) L 02/28/17 06:15 Hgb 11.0 gm/dL (12-16) L 02/28/17 06:15 Hct 32.6 % (41.0-60) L 02/28/17 06:15 MCV 87.2 fl (80-99) 02/28/17 06:15 MCH 29.4 pg (26.0-30.0) 02/28/17 06:15 MCHC Differential 33.7 pg (28.0-36.0) 02/28/17 06:15 RDW 12.9 % (11.5-20.0) 02/28/17 06:15 Plt Count 124 Th/cmm (150-400) L 02/28/17 06:15 MPV 7.9 fl 02/28/17 06:15 Neutrophils % 51.9 % (40.0-80.0) 02/28/17 06:15 Lymphocytes % 34.6 % (20.0-50.0) 02/28/17 06:15 Monocytes % 5.7 % (2.0-10.0) 02/28/17 06:15 Eosinophils % 6.8 % (0.0-5.0) H 02/28/17 06:15 Basophils % 1.0 % (0.0-2.0) 02/28/17 06:15 PT 9.7 SECONDS (9.5-11.5) 02/20/17 17:15 INR 0.93 (0.5-1.4) 02/20/17 17:15 Sodium 135 mEq/L (136-145) L 02/28/17 06:15 Potassium 3.3 mEq/L (3.5-5.1) L 02/28/17 06:15 Chloride 101 mEq/L (98-107) 02/28/17 06:15 Carbon Dioxide 24.3 mEq/L (21.0-31.0) 02/28/17 06:15 Anion Gap 13.0 (7.0-16.0) 02/28/17 06:15 BUN 23 mg/dL (7-25) 02/28/17 06:15 Creatinine 7.9 mg/dL (0.7-1.3) H* 02/28/17 06:15 Est GFR ( Amer) 10.3 ml/min (>90) 02/28/17 06:15 Est GFR (Non-Af Amer) 8.5 ml/min 02/28/17 06:15 BUN/Creatinine Ratio 2.9 02/28/17 06:15 Glucose 103 mg/dL (70-105) 02/28/17 06:15 POC Glucose 90 MG/DL (70 - 105) 02/28/17 07:00 Calcium 8.9 mg/dL (8.6-10.3) 02/28/17 06:15 Magnesium 2.4 mg/dL (1.9-2.7) 02/22/17 09:40 Total Bilirubin 0.7 mg/dL (0.3-1.0) 02/28/17 06:15 AST 56 U/L (13-39) H 02/28/17 06:15 ALT 66 U/L (7-52) H 02/28/17 06:15 Alkaline Phosphatase 282 U/L (34-104) H 02/28/17 06:15 Creatine Kinase 41 U/L (30-223) 02/20/17 17:15 Troponin I < 0.01 ng/mL (0.01-0.05) L 02/20/17 17:15 B-Natriuretic Peptide 114.0 pg/mL (5.0-100.0) H 02/20/17 17:15 Total Protein 6.3 gm/dL (6.0-8.3) 02/28/17 06:15 Albumin 3.3 gm/dL (4.2-5.5) L 02/28/17 06:15 Globulin 3.0 gm/dL 02/28/17 06:15 Albumin/Globulin Ratio 1.1 (1.0-1.8) 02/28/17 06:15 Triglycerides 97 mg/dL (<150) 02/22/17 09:40 Cholesterol 102 mg/dL (<200) 02/22/17 09:40 LDL Cholesterol Direct 30 mg/dL (75-193) L 02/22/17 09:40 HDL Cholesterol 52 mg/dL (23-92) 02/22/17 09:40 Amylase 125 U/L (29-103) H 02/27/17 09:50 Lipase 12 U/L (11-82) 02/25/17 06:10 Urine Source CLEAN C 02/20/17 19:40 Urine Color YELLOW 02/20/17 19:40 Urine Clarity CLEAR (CLEAR) 02/20/17 19:40 Urine pH 5.5 (4.6 - 8.0) 02/20/17 19:40 Ur Specific [place] 1.010 (1.005-1.030) 02/20/17 19:40 Urine Protein 100 mg/dL (NEGATIVE) H 02/20/17 19:40 Urine Glucose (UA) NEGATIVE mg/dL (NEGATIVE) 02/20/17 19:40 Urine Ketones NEGATIVE mg/dL (NEGATIVE) 02/20/17 19:40 Urine Blood TRACE (NEGATIVE) 02/20/17 19:40 Urine Nitrate NEGATIVE (NEGATIVE) 02/20/17 19:40 Urine Bilirubin NEGATIVE (NEGATIVE) 02/20/17 19:40 Urine Urobilinogen 0.2 E.U./dL (0.2 - 1.0) 02/20/17 19:40 Ur Leukocyte Esterase NEGATIVE (NEGATIVE) 02/20/17 19:40 Urine RBC 0-1 /hpf (0-5) 02/20/17 19:40 Urine WBC 0-2 /hpf (0-5) 02/20/17 19:40 Ur Epithelial Cells RARE /lpf (FEW) 02/20/17 19:40 Urine Bacteria NONE SEEN /hpf (NONE SEEN) 02/20/17 19:40 - Physical Exam Vitals and I&O: Vital Signs Temp 97.8 F 02/27/17 15:56 Pulse 109 02/27/17 15:56 Resp 17 02/27/17 20:00 BP 124/89 02/27/17 15:56 Pulse Ox 97 02/27/17 15:56 Intake & Output 02/27/17 02/28/17 02/28/17 18:59 06:59 18:59 Intake Total 1050 Balance 1050 Intake: Intake, IV Amount 1050 Ampicillin Sodium/ 50 Sulbactam 1.5 gm In Sodium Chloride 0.9% 50 ml @ 50 mls/hr IV Q12HR [facility] Rx#:[id number] D5-0.9%Ns 1,000 ml @ 50 1000 mls/hr IV .Q20H [facility] Rx#: [id number] Active Medications: Current Medications Amitriptyline HCl (Elavil) 10 mg PO BID RADHA PRN Reason: Protocol Stop: 04/23/17 16:59 Last Admin: 02/27/17 18:48 Dose: Not Given Guaifenesin/Dextromethorphan (Robitussin Dm) 10 ml PO Q6HR PRN PRN Reason: Cough Stop: 04/22/17 19:18 Dextrose/Sodium Chloride (D5-0.9%Ns) 1,000 mls @ 50 mls/hr IV .Q20H [facility] Stop: 04/21/17 21:21 Last Admin: 02/27/17 18:52 Dose: 50 mls/hr Ampicillin Sodium/Sulbactam (Sodium 1.5 gm/ Sodium Chloride) 50 mls @ 50 mls/ hr IV Q12HR [facility] Stop: 04/22/17 10:59 Last Admin: 02/27/17 22:46 Dose: 50 mls/hr Insulin Aspart (Novolog Insulin Sliding Scale) 0 units SUBQ ACHS [facility] PRN Reason: Protocol Stop: 04/22/17 07:29 Last Admin: 02/28/17 07:05 Dose: Not Given Lactobacillus Rhamnosus (Culturelle) 1 each PO DAILY [facility] Stop: 04/25/17 08:59 Last Admin: 02/27/17 08:17 Dose: 1 each Levetiracetam (Keppra) 500 mg PO BID [facility] Stop: 04/22/17 08:59 Last Admin: 02/27/17 18:48 Dose: Not Given Mineral Oil (Mineral Oil 30 Ml) 30 ml PO QID [facility] Stop: 03/02/17 20:59 Miscellaneous (Probiotic Screen) 1 ea [facility] PRN PRN PRN Reason: PROTOCOL Stop: 04/24/17 11:14 Morphine Sulfate (Morphine) 2 mg IVP Q4H PRN PRN Reason: Severe Pain Stop: 04/21/17 21:17 Last Admin: 02/28/17 04:15 Dose: 2 mg Multi-Ingredient Ointment (Pancrelipase 66721 U-5000 U-70416 U) 1 ecc PO TIDWM [facility] Stop: 04/22/17 16:59 Last Admin: 02/27/17 18:48 Dose: Not Given Ondansetron HCl (Zofran) 4 mg IVP Q6H PRN PRN Reason: Nausea / Vomiting Stop: 04/21/17 21:17 Pregabalin (Lyrica) 75 mg PO BID [facility] Stop: 04/26/17 16:59 Last Admin: 02/27/17 18:48 Dose: Not Given Sodium Chloride (Saline Flush) 10 ml IV QSHIFT [facility] Stop: 04/22/17 07:59 Last Admin: 02/28/17 07:47 Dose: Not Given Vitamin B Complex/Vit C/Folic Acid (Vitamin B Complex W/Vitamin C) 1 tab PO DAILY [facility] Stop: 04/22/17 08:59 Last Admin: 02/27/17 08:17 Dose: 1 tab General: Alert, Oriented x3 Abdomen: Soft, Tender, Other (no guard or rebound) - Procedures Procedures: Procedures Procedure Code Date ABDOMEN SURGERY PROCEDURE 91450 10/21/16 BLOOD TRANSFUSION SERVICE 03420 12/11/16 CONTROL BLEEDING IN GASTROINTESTINAL TRACT, ENDO [id number] 12/11/16 DILATION OF COMMON BILE DUCT WITH INTRALUMINAL DEVICE, ENDO [id number] 12/11/16 EGD BIOPSY SINGLE/MULTIPLE 32651 02/20/16 EGD CONTROL BLEEDING ANY 78116 12/11/16 ENDO CHOLANGIOPANCREATOGRAPH 17598 12/11/16 EXCISION OF DUODENUM, ENDO, DIAGN [id number] 02/20/16 EXCISION OF STOMACH, PYLORUS, ENDO, DIAGN [id number] 02/20/16 EXTIRPATION OF MATTER FROM COMMON BILE DUCT, ENDO [id number] 12/11/16 INTRODUCTION OF OTHER THERAPEUTIC SUBSTANCE INTO UP GI, ENDO [id number] 12/11/16 INTRODUCTION OF SERUM/TOX/VACCINE INTO MUSCLE, PERC APPROACH [id number] 11/05/16 PERFORMANCE OF URINARY FILTRATION, MULTIPLE [id number] 12/11/16 PERFORMANCE OF URINARY FILTRATION, SINGLE [id number] 11/05/16 RELEASE GREATER OMENTUM, OPEN APPROACH [id number] 10/21/16 RELEASE LIVER, OPEN APPROACH [id number] 10/21/16 REMOVAL OF GALLBLADDER 63319 10/21/16 RESECTION OF GALLBLADDER, OPEN APPROACH [id number] 10/21/16 TRANSFUSE NONAUT FRESH PLASMA IN PERIPH VEIN, PERC 63376W3 12/11/16 TRANSFUSE NONAUT FROZEN PLASMA IN PERIPH VEIN, PERC 30619V7 12/11/16 TRANSFUSE NONAUT PLATELETS IN PERIPH VEIN, PERC 62966N7 12/11/16 TRANSFUSE NONAUT RED BLOOD CELLS IN PERIPH VEIN, PERC 20854A0 12/11/16 UPPR GI SCOPE W/SUBMUC INJ 72165 12/11/16 Assessment/Plan - Problem List Patient Problems: All Active Problems COUGH WITH ABDOMINAL PAIN AND H/A (Acute) HEADACHE, ABDOMINAL PAIN, LEG PAIN (Acute) Nutritional Asmnt/Malnutr-PDOC - Dietary Evaluation Malnutrition Findings (Please click <Entered> for more info): Nutritional Asmnt/Malnutrition Start: 02/24/17 13: 31 Text: Status: Complete Freq: Document 02/24/17 13:32 PEDRO (Rec: 02/24/17 13:52 YANETENANANCY HONG -[id number]) Nutritional Asmnt/Malnutrition Patient General Information Nutritional Screening High Risk Screening Diagnosis Abd pain/ileus Pertinent Medical Hx/Surgical Hx End-stage liver Dz, DM, seizure disorder, legally blind, ESRD on HD, bilateral hearing loss, anemia per MD notes 02/23/17: KUB revealed gas/ mild ileus; LLE ultrasound revealed no evidence of BLE veins Subjective Information Pt seen for high risk trigger: BMI less than 18.5 kg/m2. Pt seen seemingly sleeping in bed. Pt seemed disinterested in engaging in RD verbal interview. Per RN, pt has little to no appetite. RN offered gelatin and apple juice earlier today, of which, pt tolerated well. Per RN, pt will have dialysis today, and regular dialysis days are Monday/Monday/Monday. Per EMR, bowel sounds hypoactive; abd is firm/soft/ non-tender. I/O: 1300/0 (+1300 ml) per 12 hours. Pt is not yet meeting optimal nutritional needs. Pt is not appropriate for nutrition education. Current Diet Order/ Nutrition Support Clear liquid Patient / S.O Can Pertinent Medications D5%/NaCl IV at 50 ml/hr (204 kcal/day), culturelle, VIT B complex/VIT C/folic acid Pertinent Labs BG 103 WNL, POC BG 101 WNL, BUN 43 H, CRE 8.9 H, K 3.2 L 02/22/17: AST 86 H, ALT 108 H, ALP 386 H Nutritional Hx/Data Height 1.52 m Height (Calculated Centimeters) 152.4 Current Weight (lbs) 42.638 kg Weight (Calculated Kilograms) 42.6 Weight (Calculated Grams) 14926.7 [place] Body Weight 106 lb, 48 kg % [place] Body Weight 88 Weight Status Underweight GI Symptoms GI Symptoms Diarrhea Skin Integrity/Comment: RN reported R upper leg discoloration; fistula site; skin intact Current %PO Poor (25-49%) Estimated Nutritional Goals Calories/Kcals/Kg 30-35 kcal/kg IBW for wt gain promotion Kcals Calculated 6053-2668 kcal/day Protein g/k.2-1.5 gm/kg IBW for wt gain promotion/ESRD on HD Protein Calculated 58-75 gm/day Fluid: ml Per MD (ESRD) Nutritional Problem 2. Problem Problem Inadequate nutritional intakes Etiology related to gradual wt gain promotion Signs/Symptoms: as evidenced by poor appetite, and current clear liquid diet unable to meet optimal nutritional requirements. 1. Problem Problem Altered nutrition-related labs Etiology related to renal and liver dysfunction Signs/Symptoms: as evidenced by abnormal BUN, CRE, AST, ALT, and ALP lab values. Malnutrition Alert Body Fat Depletion (Non-Severe) Mild Depletion Muscle Mass (Non-Severe) Mild Depletion Is there a minimum of two criteria Yes selected? Query Text:Check all the applicable criteria. A minimum of two criteria are recommended for diagnosis of either severe or non-severe malnutrition. Malnutrition Related to Morbid Obesity Malnutrition related to morbid obesity No Intervention/Recommendation Recommendations by RD Increase Calorie Intake Protein supplementation Comments * Consider advance to CCHO-60 gm, renal diet if/when medically appropriate Expected Outcomes/Goals Expected Outcomes/Goals - Monitor advancement of diet, appetite, and PO intakes w/ goal of pt meeting at least 50 % of estimated nutritional needs, labs trending WNL, normal GI function, and skin integrity/wt maintenance withn 2-3 days 02/24/17 13:51 Dietitian Notes by Ma. Maricel [facility] Room/Bed: [facility] Dietitian Recommendation * Consider advance to CCHO-60 gm, renal diet if/when medically appropriate Please refer to Nutrition Assessment for details. Initialized on 02/24/17 13:51 - END OF NOTE
[2017-02-28] MEDS ORDERED: Potassium Chloride 20 mEq ER Tab PO ONE (08:38)
[2017-02-28] MEDS: Lactobacillus Rhamnosus 10 Billion CFU Capsule PO SCH (09:08)
[2017-02-28] MEDS: Pancrelipase Cap ECC PO SCH ×3 (09:08→16:53)
[2017-02-28] MEDS: Vitamin B Complex w/Vitamin C Tab PO SCH (09:09)
[2017-02-28] MEDS ORDERED: Morphine Sulfate 2 mg/mL 1mL Syr IM PRN (11:48)
--- NOTE | 2017-02-28 12:47 | Progress Notes ---
DATE: 02/28/2017 SUBJECTIVE: The patient seen, chart reviewed, discussed with staff. A 31-year-old male who I have been following now for some days, states he is feeling "better." Denies depression. Complains of some pain. Denies anxiety. Sleeping fairly well. Eating "I am trying to." States family is supportive. SOCIAL HISTORY: Noted. PAST PSYCHIATRIC HISTORY: Denies. MENTAL STATUS EXAMINATION: Stated age. Fair eye contact. Mood "okay." Affect constricted. Thought processes were linear. No SI. No HI. No psychotic symptoms. PROVISIONAL DIAGNOSIS: Adjustment disorder. RECOMMENDATIONS: We will monitor and follow up. The patient is doing well. [facility]# [id number]
[2017-02-28] MEDS: D5-0.9%NS 1,000 ML IV SCH (21:03)
[2017-03-01] MEDS: Morphine Sulfate 2 mg/mL 1mL Syr IVP PRN (02:32)
[2017-03-01 06:11] LABS: % BASOPHILS 1.3 % (0.0-2.0); % EOSINOPHILS 7.4 % (0.0-5.0); % MONOCYTES 5.7 % (2.0-10.0); % NEUTROPHILS 53.6 % (40.0-80.0); HEMATOCRIT 31.4 % (41.0-60); HEMOGLOBIN 10.8 gm/dL (12-16); MEAN CELL VOLUME 86.4 fl (80-99); MEAN CORPUSCULAR HEMOGLOBIN 29.6 pg (26.0-30.0); MEAN CORPUSCULAR HGB CONC 34.2 pg (28.0-36.0); MEAN PLATELET VOLUME 8.3 fl; NEUTROPHILE ABSOLUTE 4.2 Th/cmm (1.8-8.0); PLATELET COUNT 122 Th/cmm (150-400); RED BLOOD COUNT 3.64 Mil/cmm (4.30-5.70); RED CELL DISTRIBUTION WIDTH 13.1 % (11.5-20.0); WHITE BLOOD COUNT 7.8 Th/cmm (4.8-10.8)
[2017-03-01 06:26] LABS: ALB/GLOB RATIO 1.1 (1.0-1.8); ANION GAP 14.7 (7.0-16.0); BILIRUBIN,TOTAL 0.6 mg/dL (0.3-1.0); BUN/CREATININE RATIO 3.3; CALCIUM SERUM 8.6 mg/dL (8.6-10.3); CARBON DIOXIDE 22.3 mEq/L (21.0-31.0)
[2017-03-01 06:35] LABS: CREATININE - SERUM 9.5 mg/dL (0.7-1.3)
[2017-03-01] MEDS: INSULIN ASPART SLIDING SCALE 100 UNITS/ML UNIT SUBQ SCH ×3 (06:55→18:58)
[2017-03-01] MEDS: Pancrelipase Cap ECC PO SCH ×3 (08:20→17:47)
[2017-03-01] MEDS: Vitamin B Complex w/Vitamin C Tab PO SCH (08:21)
[2017-03-01] MEDS: Lactobacillus Rhamnosus 10 Billion CFU Capsule PO SCH (08:21)
[2017-03-01] MEDS ORDERED: Hydrocodone/APAP 5mg/325mg Tab PO PRN (09:00)
--- NOTE | 2017-03-01 10:22 | Diagnostic Imaging Report ---
KUB abdominal film HISTORY: Abdominal distention The exam demonstrates increased density over the lower abdomen and pelvis without displacement of the bowel. The findings are consistent with a previously documented severely distended urinary bladder. Findings suggest changes of bladder outlet obstruction. Surgical clips noted in the right upper quadrant of the abdomen. 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 IMPRESSION: 1. Abnormal density consistent with a previously CT documented severely distended urinary bladder. Findings suggest changes of bladder outlet obstruction. Clinical correlation needed.
[2017-03-01] MEDS ORDERED: Morphine Sulfate 2 mg/mL 1mL Syr IVP ONE (14:11)
--- NOTE | 2017-03-01 14:33 | General Progress Note ---
Subjective - Review of Systems Service Date: 03/01/17 Events since last encounter: labs ok PE today - patient asleep, awakened for PE complained of pain immediately psych consult noted abdomen is less distended today Objective - Results Result Diagrams: 03/01/17 05:55 03/01/17 05:55 Recent Labs: Laboratory Last Values WBC 7.8 Th/cmm (4.8-10.8) 03/01/17 05:55 RBC 3.64 Mil/cmm (4.30-5.70) L 03/01/17 05:55 Hgb 10.8 gm/dL (12-16) L 03/01/17 05:55 Hct 31.4 % (41.0-60) L 03/01/17 05:55 MCV 86.4 fl (80-99) 03/01/17 05:55 MCH 29.6 pg (26.0-30.0) 03/01/17 05:55 MCHC Differential 34.2 pg (28.0-36.0) 03/01/17 05:55 RDW 13.1 % (11.5-20.0) 03/01/17 05:55 Plt Count 122 Th/cmm (150-400) L 03/01/17 05:55 MPV 8.3 fl 03/01/17 05:55 Neutrophils % 53.6 % (40.0-80.0) 03/01/17 05:55 Lymphocytes % 32.0 % (20.0-50.0) 03/01/17 05:55 Monocytes % 5.7 % (2.0-10.0) 03/01/17 05:55 Eosinophils % 7.4 % (0.0-5.0) H 03/01/17 05:55 Basophils % 1.3 % (0.0-2.0) 03/01/17 05:55 PT 9.7 SECONDS (9.5-11.5) 02/20/17 17:15 INR 0.93 (0.5-1.4) 02/20/17 17:15 Sodium 137 mEq/L (136-145) 03/01/17 05:55 Potassium 4.0 mEq/L (3.5-5.1) 03/01/17 05:55 Chloride 104 mEq/L (98-107) 03/01/17 05:55 Carbon Dioxide 22.3 mEq/L (21.0-31.0) 03/01/17 05:55 Anion Gap 14.7 (7.0-16.0) 03/01/17 05:55 BUN 31 mg/dL (7-25) H 03/01/17 05:55 Creatinine 9.5 mg/dL (0.7-1.3) H* 03/01/17 05:55 Est GFR ( Amer) 8.3 ml/min (>90) 03/01/17 05:55 Est GFR (Non-Af Amer) 6.8 ml/min 03/01/17 05:55 BUN/Creatinine Ratio 3.3 03/01/17 05:55 Glucose 88 mg/dL (70-105) 03/01/17 05:55 POC Glucose 75 MG/DL (70 - 105) 03/01/17 12:05 Calcium 8.6 mg/dL (8.6-10.3) 03/01/17 05:55 Magnesium 2.4 mg/dL (1.9-2.7) 02/22/17 09:40 Total Bilirubin 0.6 mg/dL (0.3-1.0) 03/01/17 05:55 AST 49 U/L (13-39) H 03/01/17 05:55 ALT 61 U/L (7-52) H 03/01/17 05:55 Alkaline Phosphatase 255 U/L (34-104) H 03/01/17 05:55 Creatine Kinase 41 U/L (30-223) 02/20/17 17:15 Troponin I < 0.01 ng/mL (0.01-0.05) L 02/20/17 17:15 B-Natriuretic Peptide 114.0 pg/mL (5.0-100.0) H 02/20/17 17:15 Total Protein 6.2 gm/dL (6.0-8.3) 03/01/17 05:55 Albumin 3.3 gm/dL (4.2-5.5) L 03/01/17 05:55 Globulin 2.9 gm/dL 03/01/17 05:55 Albumin/Globulin Ratio 1.1 (1.0-1.8) 03/01/17 05:55 Triglycerides 97 mg/dL (<150) 02/22/17 09:40 Cholesterol 102 mg/dL (<200) 02/22/17 09:40 LDL Cholesterol Direct 30 mg/dL (75-193) L 02/22/17 09:40 HDL Cholesterol 52 mg/dL (23-92) 02/22/17 09:40 Amylase 125 U/L (29-103) H 02/27/17 09:50 Lipase 12 U/L (11-82) 02/25/17 06:10 Urine Source CLEAN C 02/20/17 19:40 Urine Color YELLOW 02/20/17 19:40 Urine Clarity CLEAR (CLEAR) 02/20/17 19:40 Urine pH 5.5 (4.6 - 8.0) 02/20/17 19:40 Ur Specific [place] 1.010 (1.005-1.030) 02/20/17 19:40 Urine Protein 100 mg/dL (NEGATIVE) H 02/20/17 19:40 Urine Glucose (UA) NEGATIVE mg/dL (NEGATIVE) 02/20/17 19:40 Urine Ketones NEGATIVE mg/dL (NEGATIVE) 02/20/17 19:40 Urine Blood TRACE (NEGATIVE) 02/20/17 19:40 Urine Nitrate NEGATIVE (NEGATIVE) 02/20/17 19:40 Urine Bilirubin NEGATIVE (NEGATIVE) 02/20/17 19:40 Urine Urobilinogen 0.2 E.U./dL (0.2 - 1.0) 02/20/17 19:40 Ur Leukocyte Esterase NEGATIVE (NEGATIVE) 02/20/17 19:40 Urine RBC 0-1 /hpf (0-5) 02/20/17 19:40 Urine WBC 0-2 /hpf (0-5) 02/20/17 19:40 Ur Epithelial Cells RARE /lpf (FEW) 02/20/17 19:40 Urine Bacteria NONE SEEN /hpf (NONE SEEN) 02/20/17 19:40 - Physical Exam Vitals and I&O: Vital Signs Temp 98.1 F 03/01/17 08:00 Pulse 87 03/01/17 08:00 Resp 17 03/01/17 10:59 BP 110/62 03/01/17 08:00 Pulse Ox 98 03/01/17 08:00 Intake & Output 02/28/17 03/01/17 03/01/17 18:59 06:59 18:59 Intake Total 1850 802.5 Output Total 1 Balance 1849 802.5 Weight (lbs) 45.541 kg 45.541 kg Intake: Intake, IV Amount 1050 502.5 Ampicillin Sodium/ 50 50 Sulbactam 1.5 gm In Sodium Chloride 0.9% 50 ml @ 50 mls/hr IV Q12HR [facility] Rx#:[id number] D5-0.9%Ns 1,000 ml @ 50 1000 452.5 mls/hr IV .Q20H [facility] Rx#: [id number] Oral 800 300 Output: Stool 1 Other: # Bowel Movements 1 Stool Characteristics Formed Active Medications: Current Medications Acetaminophen/Hydrocodone Bitart ([place] 5mg/325mg) 1 tab PO Q4H PRN PRN Reason: Abdominal Pain Stop: 04/30/17 08:59 Amitriptyline HCl (Elavil) 10 mg PO BID RADHA PRN Reason: Protocol Stop: 04/23/17 16:59 Last Admin: 03/01/17 08:21 Dose: 10 mg Guaifenesin/Dextromethorphan (Robitussin Dm) 10 ml PO Q6HR PRN PRN Reason: Cough Stop: 04/22/17 19:18 Dextrose/Sodium Chloride (D5-0.9%Ns) 1,000 mls @ 50 mls/hr IV .Q20H [facility] Stop: 04/21/17 21:21 Last Infusion: 03/01/17 06:06 Dose: 50 mls/hr Ampicillin Sodium/Sulbactam (Sodium 1.5 gm/ Sodium Chloride) 50 mls @ 50 mls/ hr IV Q12HR [facility] Stop: 04/22/17 10:59 Last Admin: 03/01/17 12:44 Dose: 50 mls/hr Insulin Aspart (Novolog Insulin Sliding Scale) 0 units SUBQ ACHS RADHA PRN Reason: Protocol Stop: 04/22/17 07:29 Last Admin: 03/01/17 12:35 Dose: Not Given Lactobacillus Rhamnosus (Culturelle) 1 each PO DAILY [facility] Stop: 04/25/17 08:59 Last Admin: 03/01/17 08:21 Dose: 1 each Levetiracetam (Keppra) 500 mg PO BID [facility] Stop: 04/22/17 08:59 Last Admin: 10/25/17 08:21 Dose: 500 mg Mineral Oil (Mineral Oil 30 Ml) 30 ml PO QID RAD[facility] Stop: 03/02/17 20:59 Last Admin: 03/01/17 08:21 Dose: 30 ml Miscellaneous (Probiotic Screen) 1 ea MC PRN PRN PRN Reason: PROTOCOL Stop: 04/24/17 11:14 Miscellaneous (Clinical Monitoring) 1 ea MC DAILY PRN PRN Reason: RENAL Stop: 04/29/17 12:27 Miscellaneous (Clinical Monitoring) 1 ea MC DAILY PRN PRN Reason: RENAL Stop: 04/30/17 10:53 Morphine Sulfate (Morphine) 2 mg IVP X1 ONE Stop: 03/01/17 14:12 Multi-Ingredient Ointment (Pancrelipase 14184 U-5000 U-42261 U) 1 ecc PO TIDWM RAD[facility] Stop: 04/22/17 16:59 Last Admin: 03/01/17 12:49 Dose: Not Given Ondansetron HCl (Zofran) 4 mg IVP Q6H PRN PRN Reason: Nausea / Vomiting Stop: 04/21/17 21:17 Pregabalin (Lyrica) 75 mg PO BID [facility] Stop: 04/26/17 16:59 Last Admin: 03/01/17 08:21 Dose: 75 mg Sodium Chloride (Saline Flush) 10 ml IV QSHIFT [facility] Stop: 04/22/17 07:59 Last Admin: 03/01/17 08:23 Dose: 10 ml Vitamin B Complex/Vit C/Folic Acid (Vitamin B Complex W/Vitamin C) 1 tab PO DAILY [facility] Stop: 04/22/17 08:59 Last Admin: 03/01/17 08:21 Dose: 1 tab General: Alert, Oriented x3 Abdomen: Soft, Tender, Other (no guard or rebound) - Procedures Procedures: Procedures Procedure Code Date ABDOMEN SURGERY PROCEDURE 81724 10/21/16 BLOOD TRANSFUSION SERVICE 94413 12/11/16 CONTROL BLEEDING IN GASTROINTESTINAL TRACT, ENDO [id number] 12/11/16 DILATION OF COMMON BILE DUCT WITH INTRALUMINAL DEVICE, ENDO [id number] 12/11/16 EGD BIOPSY SINGLE/MULTIPLE 08444 02/20/16 EGD CONTROL BLEEDING ANY 98137 12/11/16 ENDO CHOLANGIOPANCREATOGRAPH 51385 12/11/16 EXCISION OF DUODENUM, ENDO, DIAGN [id number] 02/20/16 EXCISION OF STOMACH, PYLORUS, ENDO, DIAGN [id number] 02/20/16 EXTIRPATION OF MATTER FROM COMMON BILE DUCT, ENDO [id number] 12/11/16 INTRODUCTION OF OTHER THERAPEUTIC SUBSTANCE INTO UP GI, ENDO 5F1S4SQ 12/11/16 INTRODUCTION OF SERUM/TOX/VACCINE INTO MUSCLE, PERC APPROACH [id number] 11/05/16 PERFORMANCE OF URINARY FILTRATION, MULTIPLE 3M9U80H 12/11/16 PERFORMANCE OF URINARY FILTRATION, SINGLE [id number] 11/05/16 RELEASE GREATER OMENTUM, OPEN APPROACH [id number] 10/21/16 RELEASE LIVER, OPEN APPROACH [id number] 10/21/16 REMOVAL OF GALLBLADDER 97014 10/21/16 RESECTION OF GALLBLADDER, OPEN APPROACH [id number] 10/21/16 TRANSFUSE NONAUT FRESH PLASMA IN PERIPH VEIN, [facility] 70730K0 12/11/16 TRANSFUSE NONAUT FROZEN PLASMA IN PERIPH VEIN, [facility] 96493N8 12/11/16 TRANSFUSE NONAUT PLATELETS IN PERIPH VEIN, [facility] 16494C3 12/11/16 TRANSFUSE NONAUT RED BLOOD CELLS IN PERIPH VEIN, [facility] 53909V8 12/11/16 UPPR GI SCOPE W/SUBMUC INJ 81416 12/11/16 Assessment/Plan - Problem List Patient Problems: All Active Problems COUGH WITH ABDOMINAL PAIN AND H/A (Acute) HEADACHE, ABDOMINAL PAIN, LEG PAIN (Acute) Nutritional Asmnt/Malnutr-PDOC - Dietary Evaluation Malnutrition Findings (Please click <Entered> for more info): Nutritional Asmnt/Malnutrition Start: 02/24/17 13: 31 Text: Status: Complete Freq: Document 02/24/17 13:32 PEDRO (Rec: 02/24/17 13:52 [email or web address] HONG -[email or web address]) Nutritional Asmnt/Malnutrition Patient General Information Nutritional Screening High Risk Screening Diagnosis Abd pain/ileus Pertinent Medical Hx/Surgical Hx End-stage liver Dz, DM, seizure disorder, legally blind, ESRD on HD, bilateral hearing loss, anemia per MD notes 02/23/17: KUB revealed gas/ mild ileus; LLE ultrasound revealed no evidence of BLE veins Subjective Information Pt seen for high risk trigger: BMI less than 18.5 kg/m2. Pt seen seemingly sleeping in bed. Pt seemed disinterested in engaging in RD verbal interview. Per RN, pt has little to no appetite. RN offered gelatin and apple juice earlier today, of which, pt tolerated well. Per RN, pt will have dialysis today, and regular dialysis days are Monday/Monday/Monday. Per EMR, bowel sounds hypoactive; abd is firm/soft/ non-tender. I/O: 1300/0 (+1300 ml) per 12 hours. Pt is not yet meeting optimal nutritional needs. Pt is not appropriate for nutrition education. Current Diet Order/ Nutrition Support Clear liquid Patient / S.O Can Pertinent Medications D5%/NaCl IV at 50 ml/hr (204 kcal/day), culturelle, VIT B complex/VIT C/folic acid Pertinent Labs BG 103 WNL, POC BG 101 WNL, BUN 43 H, CRE 8.9 H, K 3.2 L 02/22/17: AST 86 H, ALT 108 H, ALP 386 H Nutritional Hx/Data Height 1.52 m Height (Calculated Centimeters) 152.4 Current Weight (lbs) 42.638 kg Weight (Calculated Kilograms) 42.6 Weight (Calculated Grams) 03290.7 [place] Body Weight 106 lb, 48 kg % [place] Body Weight 88 Weight Status Underweight GI Symptoms GI Symptoms Diarrhea Skin Integrity/Comment: RN reported R upper leg discoloration; fistula site; skin intact Current %PO Poor (25-49%) Estimated Nutritional Goals Calories/Kcals/Kg 30-35 kcal/kg IBW for wt gain promotion Kcals Calculated 7025-0532 kcal/day Protein g/k.2-1.5 gm/kg IBW for wt gain promotion/ESRD on HD Protein Calculated 58-75 gm/day Fluid: ml Per MD (ESRD) Nutritional Problem 2. Problem Problem Inadequate nutritional intakes Etiology related to gradual wt gain promotion Signs/Symptoms: as evidenced by poor appetite, and current clear liquid diet unable to meet optimal nutritional requirements. 1. Problem Problem Altered nutrition-related labs Etiology related to renal and liver dysfunction Signs/Symptoms: as evidenced by abnormal BUN, CRE, AST, ALT, and ALP lab values. Malnutrition Alert Body Fat Depletion (Non-Severe) Mild Depletion Muscle Mass (Non-Severe) Mild Depletion Is there a minimum of two criteria Yes selected? Query Text:Check all the applicable criteria. A minimum of two criteria are recommended for diagnosis of either severe or non-severe malnutrition. Malnutrition Related to Morbid Obesity Malnutrition related to morbid obesity No Intervention/Recommendation Recommendations by RD Increase Calorie Intake Protein supplementation Comments * Consider advance to CCHO-60 gm, renal diet if/when medically appropriate Expected Outcomes/Goals Expected Outcomes/Goals - Monitor advancement of diet, appetite, and PO intakes w/ goal of pt meeting at least 50 % of estimated nutritional needs, labs trending WNL, normal GI function, and skin integrity/wt maintenance withn 2-3 days 02/24/17 13:51 Dietitian Notes by Laurel Connelly. [facility] Room/Bed: [facility] Dietitian Recommendation * Consider advance to CCHO-60 gm, renal diet if/when medically appropriate Please refer to Nutrition Assessment for details. Initialized on 02/24/17 13:51 - END OF NOTE
--- NOTE | 2017-03-01 16:31 | Consultation ---
DATE OF CONSULTATION: 03/01/2017 HISTORY OF PRESENT ILLNESS: A 31-year-old male, states he is feeling "okay" complaining of some pain. He is quiet this morning. He denies any overt distress. States his family still comes to visit. SOCIAL HISTORY: Noted. PAST PSYCHIATRIC HISTORY: Denies. MENTAL STATUS EXAMINATION: Stated age. Fair eye contact. Speech quiet this morning, whispering. Mood "okay." Alludes to some pain. Affect constricted, linear on exam. No SI, no HI. No psychotic symptoms. PROVISIONAL DIAGNOSIS: Adjustment disorder. MEDICAL: Please see full H and P. RECOMMENDATIONS AND PLAN: The patient fairly stable from a psychiatric perspective. No signs of any psychological distress or turmoil, still complaining of pain symptoms; however, abdominal pain. We will monitor and follow up. JOB# [id number]
== END 2017-03-01 21:00 | disposition home or self-care (01) | DRG 388 ==
LOC: ER 16:34 → MSI 20:30
PROVIDERS: ADMIT Internal Medicine; ATTEND Internal Medicine
DX: K56.7 Ileus, unspecified (principal); N18.6 End stage renal disease; E11.22 Type 2 diabetes mellitus with diabetic chronic kidney disease; Z94.0 Kidney transplant status; K86.1 Other chronic pancreatitis; K72.90 Hepatic failure, unspecified without coma; Z99.2 Dependence on renal dialysis; F43.21 Adjustment disorder with depressed mood; G40.909 Epilepsy, unspecified, not intractable, without status epilepticus; K86.89 Other specified diseases of pancreas; H54.8 Legal blindness, as defined in USA; H91.93 Unspecified hearing loss, bilateral; D63.1 Anemia in chronic kidney disease; F39 Unspecified mood [affective] disorder; K56.41 Fecal impaction; Z83.3 Family history of diabetes mellitus; Z82.49 Family history of ischemic heart disease and other diseases of the circulatory system; Z90.49 Acquired absence of other specified parts of digestive tract
CPT/HCPCS: 36415-UA; 71010-TC; 74000-TC; 78226-TC; 80048-TC; 80053-TC; 80061-TC; 81001-TC; 82150-TC; 82550-TC; 82948-90; 83690-TC; 83735-TC; 83880-TC; 84484-TC; 85025-TC; 85610-TC; 90937; 93005; 93970-TC-50; 94760; 96374; 96375; A9537; J0295; J1815; J2270; J2405; J7030; J7042; Z7610; Z7610-TC

== ENCOUNTER 2017-03-02 18:37 | Emergency (ER) | payer MEDICARE, MEDICAID ==
--- NOTE | 2017-03-02 19:09 | ED Physician Chart ---
ED Chief Complaint/HPI - Patient Information Date Seen:: 03/02/17 Time Seen:: 18:50 Chief Complaint:: bleeding from dialysis shunt History of Present Illness:: Patient received dialysis yesterday. When he woke up this morning at about 11: 00 he noted continuing bleeding from dialysis shunt site. The bleeding is occurring extremely slowly. Allergies:: Allergies Allergy/AdvReac Type Severity Reaction Status Date / Time No Known Allergies Allergy Verified 12/10/16 20:50 Historian:: Patient, Family Member Review:: Nurse's Note Reviewed ED Review of Systems - Review of Systems General/Constitutional: No fever, No chills Skin: No skin lesions Head: No headache Eyes: No loss of vision ENT: No earache Neck: No neck pain, No swelling Cardio Vascular: No chest pain, No palpitations Pulmonary: No SOB GI: No nausea, No vomiting, No diarrhea G/U: No dysuria Musculoskeletal: No bone or joint pain Endocrine: No polyuria, No polydipsia Psychiatric: No prior psych history Hematopoietic: No bruising Allergic/Immuno: No urticaria Neurological: No syncope Family Medical History - Family Member Mother History Unknown: Yes Ethnicity: Non- Living Status: Still Living Hx Family Cancer: No Hx Family Coronary Artery Disease: No Hx Family Congestive Heart Failure: No Hx Family Hypertension: No Hx Family Stroke: No Hx Family Diabetes: No Hx Family Seizures: No Hx Family Dementia: No Hx Family AIDS: No Hx Family HIV: No Hx Family COPD: No Hx Family Hepatitis: No Hx Family Psychiatric Problems: No Hx Family Tuberculosis: No ED Physical Exam - Physical Examination General/Constitutional: No distress Other Gen/Cons comments:: Mildly chronically ill-appearing Head: Atraumatic Eyes: Lids, conjuctiva normal, PERRL Other Skin comments:: Left upper arm: There is extremely slow bleeding at the dialysis shunt site. It takes about 1 minute for a very small drop of blood to accumulate ENMT: External ears, nose nl, Nasal exam nl Neck: No nuchal rigidity Respiratory: Nl effort/Exclusion, Clear to Auscultation Cardio Vascular: RRR GI: No tenderness/rebounding/guarding, No organomegaly, No hernia Other Extremities comments:: See under skin Neuro/Psych: Alert/oriented, No focal deficits Misc: Normal back ED Assessment - Procedures Procedures:: folded 4 x 4's and then unfolded 4 x 4's and 4 inch saman for a pressure dressing ED Septic Shock - . Is Septic Shock (SBP<90, OR Lactate>4 mmol\L) present?: No ED Reassessment (Disposition) - Reassessment Reassessment Condition:: Unchanged - Diagnosis Diagnosis:: Bleeding from dialysis shunt site - Aftercare/Follow up Instructions Aftercare/Follow-Up Instructions:: Refer to Discharge Instructions - Patient Disposition Discharge/Transfer:: Home Condition at Disposition:: Stable, Improved
== END 2017-03-02 19:12 | disposition home or self-care (01) ==
LOC: ER 18:37
DX: T82.838A Hemorrhage due to vascular prosthetic devices, implants and grafts, initial encounter (principal); Y92.9 Unspecified place or not applicable

== ENCOUNTER 2017-03-20 05:18 | Inpatient (IN) | payer MEDICARE, MEDICAID ==
[2017-03-20 06:11] LABS: % BASOPHILS 0.7 % (0.0-2.0); % EOSINOPHILS 6.4 % (0.0-5.0); % LYMPHOCYTES 28.7 % (20.0-50.0); % MONOCYTES 6.1 % (2.0-10.0); % NEUTROPHILS 58.1 % (40.0-80.0); MEAN CELL VOLUME 85.3 fl (80-99); MEAN CORPUSCULAR HEMOGLOBIN 28.4 pg (26.0-30.0); MEAN CORPUSCULAR HGB CONC 33.3 pg (28.0-36.0); MEAN PLATELET VOLUME 7.4 fl; NEUTROPHILE ABSOLUTE 3.4 Th/cmm (1.8-8.0); RED BLOOD COUNT 2.65 Mil/cmm (4.30-5.70); WHITE BLOOD COUNT 5.9 Th/cmm (4.8-10.8)
[2017-03-20 06:18] LABS: HEMATOCRIT 22.6 % (41.0-60); HEMOGLOBIN 7.5 gm/dL (12-16); PLATELET COUNT 95 Th/cmm (150-400)
[2017-03-20 06:29] LABS: INR 0.91 (0.5-1.4); PROTHROMBIN TIME (TEST) 9.5 SECONDS (9.5-11.5)
[2017-03-20 06:33] LABS: ALB/GLOB RATIO 1.1 (1.0-1.8); ANION GAP 17.6 (7.0-16.0); BILIRUBIN,TOTAL 0.6 mg/dL (0.3-1.0); BUN/CREATININE RATIO 8.6; CALCIUM SERUM 9.3 mg/dL (8.6-10.3); CARBON DIOXIDE 17.4 mEq/L (21.0-31.0)
[2017-03-20 06:42] LABS: CREATININE - SERUM 7.4 mg/dL (0.7-1.3)
[2017-03-20] MEDS ORDERED: Diphenoxylate/Atropine 2.5mg Tab PO STA (07:17)
[2017-03-20] MEDS ORDERED: Acetaminophen 500 MG TAB ONE (08:06)
[2017-03-20] MEDS ORDERED: Diphenoxylate/Atropine 2.5mg Tab ONE (08:13)
[2017-03-20] MEDS: Acetaminophen 500 MG TAB PO ONE ×2 (08:16→10:05)
[2017-03-20] MEDS ORDERED: Fleet Enema 135 mL RC PRN (09:12)
[2017-03-20] MEDS ORDERED: Epoetin Alfa 20000 Units/mL Vial SUBQ SCH (09:15)
[2017-03-20] MEDS: Hydrocodone/APAP 5mg/325mg Tab PO PRN ×2 (10:17→17:09)
--- NOTE | 2017-03-20 10:23 | History & Physical ---
ADMIT DATE: 03/20/2017 CHIEF COMPLAINT: "Doctor I have abdominal pain and I feel weak and tired, cannot walk and I missed my dialysis." HISTORY OF PRESENT ILLNESS: A 31-year-old [place] male with history of end-stage renal disease on hemodialysis status post failed renal transplant, history of seizure disorder, diabetes mellitus, legally blindness, has bilateral hearing loss, going in and out of the hospital, missed his dialysis because the patient was feeling extremely weak and unable to get out of the bed. The patient was brought in to the Emergency Room for evaluation of his generalized weakness and abdominal pain symptoms. When the patient was evaluated, noted to have hemoglobin of 7.5. I did discuss with central station operator about hemoglobin being low and his symptoms and after being consulted, it was recommended that the patient should be admitted for blood transfusion and the patient has been admitted for blood transfusion and management of his underlying illnesses. The patient continues to have abdominal pain and also tells me that he has black stools and also notices nausea and vomiting. Since he is here in the hospital, there was no reported nausea, vomiting, or diarrhea. The patient is asking for pain medication. PAST MEDICAL HISTORY: Remarkable for: 1. Diabetes. 2. Seizure disorder. 3. Legally blindness. 4. End-stage renal disease, on hemodialysis. 5. Bilateral hearing loss. 6. Anemia of chronic kidney disease. MEDICATIONS AT HOME: Has been reviewed and reconciled appropriately. ALLERGIES: The patient is not allergic to medications. SOCIAL HISTORY: He lives with his parent. He has no smoking cigarette, alcohol or drug use. FAMILY HISTORY: Remarkable for hypertension. REVIEW OF SYSTEMS: Continues to complain about abdominal pain, nausea, vomiting and diarrhea and also complaining of chest pain and shortness of breath. Denies any fever or chills. Denies any headache. Denies any seizure or syncopal episode. Denies any hematemesis, hematochezia, or any hematuria. PHYSICAL EXAMINATION: GENERAL: The patient is alert, awake, oriented, lying in the bed without any acute distress. VITAL SIGNS: Temperature 97.6, pulse 81, respiratory rate 18, and blood pressure 116/77. HEENT: Normocephalic, atraumatic. Extraocular muscles are intact. Bilateral hearing aid noted. Tongue was pink and coated. Poor dentition noted. NECK: Supple. No JVD, no hepatojugular reflex. No lymphadenopathy, thyromegaly, or carotid bruit. HEART: Both heart sounds are regular. No S3. No S4. CHEST: Lung equal in expansion, no wheezing, no crackles. ABDOMEN: Soft. Significant tenderness and guarding noted with multiple surgical scars. Bowel sounds are present. No palpable mass. EXTREMITIES: No edema. AV graft on the right upper extremity noted with bruit. NEUROLOGIC: Alert, awake, follows commands. AVAILABLE DIAGNOSTIC DATA: Has been reviewed. CLINICAL IMPRESSIONS: 1. Symptomatic anemia, need for blood transfusion. 2. Chronic abdominal pain with intermittent elevated liver function tests. 3. Diabetes mellitus. 4. Seizure disorder. 5. Bilateral hearing loss. 6. Abnormal liver function test. 7. History of exploratory laparotomy for acute cholecystitis. PLAN: 1. Admit this patient to Med/Surg floor. 2. Blood transfusion. 3. Symptoms management. 4. Appropriate home medicine reconciliation. 5. Nephrology consultation. 6. Hemodialysis. 7. Follow up lab. 8. General nursing care. 9. Follow [employer] ax consultant recommendation. 10. Care plan reviewed and discussed with staff. JOB# [id number]
--- NOTE | 2017-03-20 10:24 | ER Physician Documentation ---
DATE OF SERVICE: 03/20/2017 EMERGENCY ROOM NOTE EVALUATION AND TREATMENT This is a 31-year-old male patient born on 1985. He is a frequent flyer to this institution. EKG being normal, came to the hospital because of abdominal pain, not feeling good, not feeling well, headache and just saying it is hurting everywhere and wants to be here. He has a history of dialysis ____. HISTORY OF PRESENT ILLNESS: The patient says that he is a known case of dialysis for many years. The patient was picked up today, today is his dialysis day. He has a chronic end-stage liver disease. He has a shunt in the right arm. He has end-stage renal failure on hemodialysis, status post failed renal transplant. He has a laparoscopic cholecystectomy for cholecystitis. He has chronic pain. He sometimes has chronic ileus and he has sometimes chronic diarrhea. Today he does not have any diarrhea. He lives at [place] with his father and mother. Today is his dialysis day. He was picked up by the transportation. He was brought to the dialysis center. He did not wanted to be there, so he walked from the [facility]. From there, he walked here to be admitted to get treatment, to get dialysis, etc. PAST MEDICAL HISTORY: Positive for diabetes mellitus. He has a history of seizure disorder. He says he is legally blind. End-stage renal disease. He has bilateral hearing loss, anemia which is recurrent from chronic disease. MEDICATIONS: At home were reviewed and reconciled appropriately by the nurses. His home medications include ferric citrate (Auryxia) 420 mg 3 times a day, sitagliptin phosphate, Januvia 25 mg daily, Keppra 500 mg p.o. b.i.d., vitamin B complex with vitamin C 1 tablet daily. ALLERGIES: He is not allergic to any medication. SOCIAL HISTORY: Lives with his parents. No smoking. No alcohol, drug abuse. FAMILY HISTORY: Remarkable for hypertension. REVIEW OF SYSTEMS: HEENT: Eyes: Mostly legally blind. CARDIOLOGIC: Heart-schwartz, no chest pain, no myocardial infarction, no rheumatic fever, no valvular heart disease. PULMONARY: No history of pneumonia, TB, pulmonary embolism, COPD, emphysema, bronchitis. ABDOMEN: Has generalized abdominal pain and no definite significant tenderness, but he just is pointing to the belly and saying he has pain and ____ I will get my dialysis here." FAMILY HISTORY: Benign and negative. Parents are alive. He lives at home. PHYSICAL EXAMINATION: GENERAL: The patient appears to be awake, alert, not much in distress, but just saying that it is hurting everywhere. He is having a headache. He is not feeling good. He really wants admission to the hospital. He has come here several times in the past, the last admission date was just 02/20/2017, today is 03/20/2017. The patient is atraumatic. VITAL SIGNS: Taken by the nurse appears to be within normal limits ____ respirations 18, blood pressure 125/67, saturation 100%. Height is 5 feet 2 inches, weighing 100 pounds. Right arm AV shunt. On Monday, Monday and Monday, he comes over here. Vital signs are normal. HEENT: Normal. Extraocular muscles are intact. Tongue was pink and coated. Poor dentition. NECK: Supple. No meningeal signs. HEART: Normal heart sounds. Soft fourth heart sound. Third heart sound is absent. LUNGS: Clear. No rales, wheezes or rhonchi. ABDOMEN: Soft. No definite rigidity, guarding. Diffuse vague tenderness if any. Palpable and ballottable kidney was noted. Bowel sounds were present. No evidence of any ascites. EXTREMITIES: Normal. AV graft in the right arm with good bruit. NEUROLOGIC: Within normal limits. DIAGNOSTIC DATA: EKG was done in the Emergency Room, is within normal limits. LABORATORY DATA: Lab workup was done over here showing white count of 5.9, hemoglobin of 7.5, ____. Sodium 130, potassium of 5, chloride of 100, glucose is 112, BUN is 64, creatinine is 7.4. Albumin is 3.6, albumin globulin ratio is 3.2, AST is 88, ALT is 162, alkaline phosphatase is 364, amylase is 239, lipase is 124. Protime is 9.5 and INR is 0.95. DIAGNOSIS: The patient has chronic abdominal pain with occasional nausea, occasional vomiting. The patient has occasional diarrhea. We have not checked stool for C. diff, at least I do not see it at the present moment. Abnormal liver function test. The patient may be having some ascending cholangitis or the patient has acute-chronic pancreatitis, chronic abdominal pain. He has diabetes mellitus. He has history of seizure disorder, but none at the present moment. He is legally blind, bilateral hearing loss. The patient has severe anemia that he would need at least a couple of units of blood transfusion during the dialysis program, anemia of chronic disease, he might need to boost up his iron level. He says his stool is black, most probably it is from iron. We will admit him to the Emergency Room physician and write the appropriate orders and wish him well. No implanted devices are present in the patient. He also has other problems including headache, abdominal pain, leg pain, generalized body pain, headache. JOB# [id number]
[2017-03-20 11:32] VITALS: BP 110/69
[2017-03-20] MEDS: INSULIN ASPART SLIDING SCALE 100 UNITS/ML UNIT SUBQ SCH ×3 (11:36→22:13)
[2017-03-20] MEDS ORDERED: FERRIC CITRATE 420 MG PO SCH (14:00)
[2017-03-20] MEDS: Ferrous Sulfate 325 MG TAB PO SCH ×2 (16:16→22:06)
[2017-03-21] MEDS ORDERED: Dextrose 50% 50 mL Abboject IVP ONE (06:33)
[2017-03-21] MEDS: INSULIN ASPART SLIDING SCALE 100 UNITS/ML UNIT SUBQ SCH ×3 (07:21→17:13)
--- NOTE | 2017-03-21 08:59 | General Progress Note ---
Subjective - Review of Systems Service Date: 03/21/17 Subjective: i have pain Objective - Results Result Diagrams: 03/20/17 06:00 03/20/17 06:00 Recent Labs: Laboratory Last Values WBC 5.9 Th/cmm (4.8-10.8) D 03/20/17 06:00 RBC 2.65 Mil/cmm (4.30-5.70) L 03/20/17 06:00 Hgb 7.5 gm/dL (12-16) L* 03/20/17 06:00 Hct 22.6 % (41.0-60) L D 03/20/17 06:00 MCV 85.3 fl (80-99) 03/20/17 06:00 MCH 28.4 pg (26.0-30.0) 03/20/17 06:00 MCHC Differential 33.3 pg (28.0-36.0) 03/20/17 06:00 RDW 13.0 % (11.5-20.0) 03/20/17 06:00 Plt Count 95 Th/cmm (150-400) L D 03/20/17 06:00 MPV 7.4 fl 03/20/17 06:00 Neutrophils % 58.1 % (40.0-80.0) 03/20/17 06:00 Lymphocytes % 28.7 % (20.0-50.0) 03/20/17 06:00 Monocytes % 6.1 % (2.0-10.0) 03/20/17 06:00 Eosinophils % 6.4 % (0.0-5.0) H 03/20/17 06:00 Basophils % 0.7 % (0.0-2.0) 03/20/17 06:00 PT 9.5 SECONDS (9.5-11.5) 03/20/17 06:00 INR 0.91 (0.5-1.4) 03/20/17 06:00 PTT (Actin FS) 27.4 SECONDS (26.0-38.0) 03/20/17 06:00 Sodium 130 mEq/L (136-145) L 03/20/17 06:00 Potassium 5.0 mEq/L (3.5-5.1) 03/20/17 06:00 Chloride 100 mEq/L (98-107) 03/20/17 06:00 Carbon Dioxide 17.4 mEq/L (21.0-31.0) L 03/20/17 06:00 Anion Gap 17.6 (7.0-16.0) H 03/20/17 06:00 BUN 64 mg/dL (7-25) H 03/20/17 06:00 Creatinine 7.4 mg/dL (0.7-1.3) H* 03/20/17 06:00 Est GFR ( Amer) 11.1 ml/min (>90) 03/20/17 06:00 Est GFR (Non-Af Amer) 9.1 ml/min 03/20/17 06:00 BUN/Creatinine Ratio 8.6 03/20/17 06:00 Glucose 112 mg/dL (70-105) H 03/20/17 06:00 POC Glucose 184 MG/DL (70 - 105) H 03/21/17 07:00 Whole Bld Lactic Acid 1.26 mmol/L (0.60-1.99) 03/20/17 07:15 Calcium 9.3 mg/dL (8.6-10.3) 03/20/17 06:00 Total Bilirubin 0.6 mg/dL (0.3-1.0) 03/20/17 06:00 AST 88 U/L (13-39) H 03/20/17 06:00 ALT 162 U/L (7-52) H 03/20/17 06:00 Alkaline Phosphatase 364 U/L (34-104) H 03/20/17 06:00 Total Protein 6.8 gm/dL (6.0-8.3) 03/20/17 06:00 Albumin 3.6 gm/dL (4.2-5.5) L 03/20/17 06:00 Globulin 3.2 gm/dL 03/20/17 06:00 Albumin/Globulin Ratio 1.1 (1.0-1.8) 03/20/17 06:00 Amylase 239 U/L (29-103) H 03/20/17 06:00 Lipase 124 U/L (11-82) H 03/20/17 06:00 Blood Type AB POSITIVE 03/20/17 07:15 Antibody Screen NEGATIVE 03/20/17 07:15 Crossmatch See Detail 03/20/17 07:15 - Physical Exam Vitals and I&O: Vital Signs Temp 98 F 03/21/17 05:31 Pulse 69 03/21/17 05:31 Resp 16 03/21/17 08:27 BP 103/58 03/21/17 05:31 Pulse Ox 98 03/21/17 05:31 Intake & Output 03/20/17 03/21/17 03/21/17 18:59 06:59 18:59 Intake Total 250 20 Balance 250 20 Weight (lbs) 45.359 kg 47.174 kg Intake: Oral 250 20 Other: # Voids 2 0 # Bowel Movements 0 0 Active Medications: Current Medications Acetaminophen (Tylenol) 650 mg PO Q4H PRN PRN Reason: Mild Pain/Headache/T above 101 Stop: 05/19/17 09:11 Acetaminophen/Hydrocodone Bitart ([place] 5mg/325mg) 1 tab PO Q6H PRN PRN Reason: Abdominal Pain Stop: 05/19/17 09:07 Last Admin: 03/20/17 17:09 Dose: 1 tab Epoetin Marv (Epogen) 5,000 units SUBQ MoWeFr [facility] Stop: 05/19/17 09:14 Last Admin: 03/20/17 12:50 Dose: 5,000 units Ferrous Sulfate (Iron) 325 mg PO TID [facility] Stop: 05/19/17 13:59 Last Admin: 03/20/17 22:06 Dose: 325 mg Insulin Aspart (Novolog Insulin Sliding Scale) 0 units SUBQ ACHS RADHA PRN Reason: Protocol Stop: 05/19/17 11:29 Last Admin: 03/21/17 07:21 Dose: Not Given Levetiracetam (Keppra) 500 mg PO BID [facility] Stop: 05/19/17 16:59 Last Admin: 03/20/17 17:09 Dose: 500 mg Lorazepam (Ativan) 1 mg PO Q6H PRN; Protocol PRN Reason: Anxiety/Agitation Stop: 05/19/17 09:11 Miscellaneous (Ferric Citrate [Auryxia]) 420 mg PO TID [facility] Stop: 05/19/17 13:59 Last Admin: 03/20/17 16:21 Dose: Not Given Ondansetron HCl (Zofran) 4 mg IVP Q6H PRN PRN Reason: Nausea / Vomiting Stop: 05/19/17 09:11 Sitagliptin Phosphate (Januvia) 25 mg PO DAILY RADHA Stop: 05/20/17 08:59 Sodium Phosphate (Fleet Enema) 135 ml RC DAILY PRN PRN Reason: Constipation Stop: 05/19/17 09:11 Vitamin B Complex/Vit C/Folic Acid (Vitamin B Complex W/Vitamin C) 1 tab PO DAILY RADHA Stop: 05/20/17 08:59 Zolpidem Tartrate (Ambien) 5 mg PO HS PRN PRN Reason: Insomnia Stop: 05/19/17 09:11 General: Alert HEENT: PERRLA Neck: Supple Cardiovascular: Regular rate, Normal S1, Normal S2 Lungs: Clear to auscultation Abdomen: Bowel sounds, Soft Extremities: Pulses Neurological: Normal gait - Procedures Procedures: Procedures Procedure Code Date ABDOMEN SURGERY PROCEDURE 04433 10/21/16 BLOOD TRANSFUSION SERVICE 37761 03/20/17 CONTROL BLEEDING IN GASTROINTESTINAL TRACT, ENDO [id number] 12/11/16 DILATION OF COMMON BILE DUCT WITH INTRALUMINAL DEVICE, ENDO [id number] 12/11/16 EGD BIOPSY SINGLE/MULTIPLE 31111 02/20/16 EGD CONTROL BLEEDING ANY 41090 12/11/16 ENDO CHOLANGIOPANCREATOGRAPH 70113 12/11/16 EXCISION OF DUODENUM, ENDO, DIAGN [id number] 02/20/16 EXCISION OF STOMACH, PYLORUS, ENDO, DIAGN [id number] 02/20/16 EXTIRPATION OF MATTER FROM COMMON BILE DUCT, ENDO [id number] 12/11/16 INTRODUCTION OF OTHER THERAPEUTIC SUBSTANCE INTO UP GI, ENDO [id number] 12/11/16 INTRODUCTION OF SERUM/TOX/VACCINE INTO MUSCLE, PERC APPROACH [id number] 11/05/16 PERFORMANCE OF URINARY FILTRATION, MULTIPLE [id number] 12/11/16 PERFORMANCE OF URINARY FILTRATION, SINGLE [id number] 11/05/16 RELEASE GREATER OMENTUM, OPEN APPROACH [id number] 10/21/16 RELEASE LIVER, OPEN APPROACH [id number] 10/21/16 REMOVAL OF GALLBLADDER 86541 10/21/16 RESECTION OF GALLBLADDER, OPEN APPROACH [id number] 10/21/16 TRANSFUSE NONAUT FRESH PLASMA IN PERIPH VEIN, PERC 44388N1 12/11/16 TRANSFUSE NONAUT FROZEN PLASMA IN PERIPH VEIN, PERC 68243B2 12/11/16 TRANSFUSE NONAUT PLATELETS IN PERIPH VEIN, PERC 86750V1 12/11/16 TRANSFUSE NONAUT RED BLOOD CELLS IN PERIPH VEIN, PERC 30320B0 03/20/17 UPPR GI SCOPE W/SUBMUC INJ 12271 12/11/16 Assessment/Plan - Problem List Patient Problems: All Active Problems COUGH WITH ABDOMINAL PAIN AND H/A (Acute) DRESSING CHANGE REQUESTED TO GRAFT SITE (Acute) HEADACHE, ABDOMINAL PAIN, LEG PAIN (Acute) - Assessment Assessment: Acute Anemia Abdominal pain DM Type 2 Seizure ESRD Chronic Abdominal pain Carlos of hearing Cognitive impairment - Plan Plan: continue HD support monitor H/H
[2017-03-21] MEDS ORDERED: Vitamin B Complex w/Vitamin C Tab PO SCH (09:00)
[2017-03-21] MEDS: Hydrocodone/APAP 5mg/325mg Tab PO PRN ×2 (09:01→17:11)
[2017-03-21] MEDS: Ferrous Sulfate 325 MG TAB PO SCH ×2 (09:01→15:00)
--- NOTE | 2017-03-21 09:31 | Consultation ---
DATE OF CONSULTATION: 03/20/2017 RENAL CONSULTATION REASON FOR CONSULTATION: End-stage renal disease, on chronic hemodialysis. HISTORY OF PRESENT ILLNESS: I was kindly asked by Dr. De Jesus to evaluate this 31-year-old [place] male who has a history of end-stage renal disease on chronic hemodialysis after he has kidney transplant failed and he has a history of seizure, diabetes, hypertension, cognitive impairment. He is legally blind. He has bilaterally hearing loss. He has had multiple infections and immunocompromised. He missed his hemodialysis. He was extremely weak. He came to the Emergency Room. He was found to have hemoglobin of 7.5. The patient was admitted to be get blood transfusion and get his hemodialysis. He continues to have some abdominal pain. He had reported black stools and nausea and vomiting. The patient will be admitted for further evaluation for blood transfusion, hemodialysis, and GI workup. PAST MEDICAL HISTORY: Includes diabetes, hypertension, seizure disorder, cognitive impairment, end-stage renal disease, legally blind, bilateral hearing loss, and anemia of chronic kidney disease. PAST SURGICAL HISTORY: AV fistula placement, which is failed; status post kidney transplant, which is failed and Perm-A-Cath placement. MEDICATIONS: Please see the lists. ALLERGIES: No known drug allergies. SOCIAL HISTORY: The patient denies any smoking, alcohol or drugs, but he lives with his family. FAMILY HISTORY: Noncontributory. 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 He also has abnormal hearing and cognitively impaired. LABORATORY DATA: Shows his white count is 5.9, H and H is 7.5 and 22.6, platelets 95. His serum sodium is 130, potassium 5.0, bicarbonate is 17, BUN is 64, creatinine 7.4. PHYSICAL EXAMINATION: VITAL SIGNS: Blood pressure is 103/67, heart rate is 71, temperature is 97.6. HEENT: Anicteric sclerae. NECK: Supple. No JVD. LUNGS: Clear to auscultation bilaterally. CARDIAC: Regular rate and rhythm. ABDOMEN: Soft, nontender. EXTREMITIES: No edema. ASSESSMENT: A 31-year-old male with end-stage renal disease on chronic hemodialysis, admitted with generalized weakness, severe anemia and abdominal pain with black stool. The patient will be admitted to the hospital. We will have GI workup. The patient will get GI prophylaxis. We will continue the rest of the medication for diabetes, hypertension and reevaluate him in the morning. JOB# [id number]
[2017-03-21 09:45] LABS: % BASOPHILS 0.7 % (0.0-2.0); % EOSINOPHILS 6.6 % (0.0-5.0); % MONOCYTES 8.2 % (2.0-10.0); % NEUTROPHILS 51.5 % (40.0-80.0); MEAN CORPUSCULAR HEMOGLOBIN 28.7 pg (26.0-30.0); MEAN CORPUSCULAR HGB CONC 33.8 pg (28.0-36.0); NEUTROPHILE ABSOLUTE 2.8 Th/cmm (1.8-8.0); PLATELET COUNT 100 Th/cmm (150-400); RED BLOOD COUNT 3.64 Mil/cmm (4.30-5.70); RED CELL DISTRIBUTION WIDTH 13.8 % (11.5-20.0); WHITE BLOOD COUNT 5.5 Th/cmm (4.8-10.8)
[2017-03-21 09:46] LABS: HEMATOCRIT 30.9 % (41.0-60); HEMOGLOBIN 10.5 gm/dL (12-16)
[2017-03-21 10:11] LABS: ALB/GLOB RATIO 1.1 (1.0-1.8); ANION GAP 12.8 (7.0-16.0); BUN/CREATININE RATIO 7.7; CALCIUM SERUM 9.3 mg/dL (8.6-10.3); CARBON DIOXIDE 25.3 mEq/L (21.0-31.0); POTASSIUM SERUM 4.1 mEq/L (3.5-5.1)
[2017-03-21 10:27] LABS: CREATININE - SERUM 5.2 mg/dL (0.7-1.3)
[2017-03-21] MEDS ORDERED: D5-0.45NS 1,000 ML IV SCH (13:45)
--- NOTE | 2017-03-22 12:00 | Consultation ---
DATE OF CONSULTATION: 03/21/2017 REASON FOR CONSULTATION: Psych eval. HISTORY OF PRESENT ILLNESS: A 31-year-old [place]ian male with history of end-stage renal disease, on hemodialysis. The patient of Dr. Davis. I have seen this patient in the past. Also seizure disorder, diabetes, blind, hearing loss, in and out of the hospitals, missing dialysis. He is complaining of abdominal pain. States that when he eats it hurts more, he does not want to eat. He states he is depressed down. States at times he feels hopeless. He states he does want to get better, but he feels his pain is not well controlled. PAST PSYCHIATRIC HISTORY: Depression. PAST MEDICAL HISTORY: Diabetes, seizure disorder, legally blind, renal dialysis, anemia. MEDICATIONS: At home noted and reviewed. ALLERGIES: No known drug allergies. SOCIAL HISTORY: Living at home with his parents. Born in [place]. No drugs. No alcohol. No tobacco. Not . No kids. MENTAL STATUS EXAMINATION: Stated age. Fair eye contact. Speech decreased content. Mood "not good." Affect depressed. Thought processes were grossly linear. No SI, no intent, no plan. No HI, no intent, no plan. No evidence of any psychotic symptoms. Insight and judgment somewhat diminished. PROVISIONAL DIAGNOSIS: Major depression - unspecified, anxiety - unspecified. MEDICAL: Please see full H and P. RECOMMENDATIONS AND PLAN: The patient may benefit from optimization of pain management. He is complaining of intense abdominal pain. Recommend continuing Effexor, will initiate low-dose Remeron to see if this will stimulate his appetite and also adjunct his depression treatment. No 5150 criteria, he is not suicidal at this time, he is not homicidal. JOB# [id number]
== END 2017-03-21 18:20 | disposition home or self-care (01) | DRG 811 ==
LOC: ER 05:18 → MSI 08:32
PROVIDERS: ADMIT Internal Medicine; ATTEND Internal Medicine
PROC: 30233N1 Transfusion of Nonautologous Red Blood Cells into Peripheral Vein, Percutaneous Approach (ICD-10-PCS; principal; 2017-03-20)
PROC: 5A1D70Z Performance of Urinary Filtration, Intermittent, Less than 6 Hours Per Day (ICD-10-PCS; 2017-03-20)
DX: D64.9 Anemia, unspecified (principal); N18.6 End stage renal disease; E11.22 Type 2 diabetes mellitus with diabetic chronic kidney disease; D89.9 Disorder involving the immune mechanism, unspecified; Z94.0 Kidney transplant status; R10.9 Unspecified abdominal pain; G40.909 Epilepsy, unspecified, not intractable, without status epilepticus; H91.93 Unspecified hearing loss, bilateral; G89.29 Other chronic pain; R19.7 Diarrhea, unspecified; H54.8 Legal blindness, as defined in USA; D63.1 Anemia in chronic kidney disease; F32.9 Major depressive disorder, single episode, unspecified; F41.9 Anxiety disorder, unspecified; Z99.2 Dependence on renal dialysis; Z90.49 Acquired absence of other specified parts of digestive tract; Z82.49 Family history of ischemic heart disease and other diseases of the circulatory system
CPT/HCPCS: 36415-UA; 80053-TC; 82150-TC; 82947-TC; 82948-90; 83605; 83690-TC; 85025-TC; 85610-TC; 86850-TC; 86900-TC; 86901-TC; 86922-TC; 87230-TC; 93005; J0696; J0885; J1815; J3370; J7799; P9016; Z7610

== ENCOUNTER 2017-03-26 13:47 | Inpatient (IN) | payer MEDICARE, MEDICAID ==
--- NOTE | 2017-03-26 14:40 | ED Physician Chart ---
ED Chief Complaint/HPI - Patient Information Date Seen:: 03/26/17 Time Seen:: 14:11 Chief Complaint:: Recurrent nausea/vomiting for 3 days. History of Present Illness:: Brought in by private auto with his mother for the above reason. Pt states that he has had recurrent nausea/vomiting for 3 days. Vomitus consists of gastric content. No hematemesis. Last BM at 0900 today that was normal in color/ consistency. No hematochezia or melena. Pt denies any abdominal pain or discomfort otherwise. No lightheadedness. No syncope. Allergies:: Allergies Allergy/AdvReac Type Severity Reaction Status Date / Time No Known Allergies Allergy Verified 03/20/17 05:29 Vitals:: Vital Signs - 8 hr 03/26/17 14:21 Temp 98.4 F HR 125 RR 18 BP 127/91 O2 Sat % 98 Historian:: Patient Family MD/PCP:: unknown LMP:: N/A Review:: Nurse's Note Reviewed ED Review of Systems - Review of Systems General/Constitutional: No fever, No weight loss, No weakness, No edema, No loss of appetite Skin: No rash, No bruising Head: No headache, No light-headedness ENT: No earache, No nasal drainage, No sore throat Neck: No neck pain, No swelling, No thyromegaly, No stiffness, No mass noted Cardio Vascular: No chest pain, No palpitations, No edema Pulmonary: No SOB, No cough, No wheezing GI: Nausea, Vomiting, No diarrhea, No pain G/U: Other (Pt is anuric.) Musculoskeletal: No bone or joint pain Endocrine: No polyuria, No polydipsia Psychiatric: No prior psych history Hematopoietic: Bruising, No lymphadenopathy Allergic/Immuno: No urticaria, No angioedema Neurological: No syncope, No focal symptoms, No weakness, No paresthesia, No headache, No seizure, No dizziness, No confusion ED Past Medical History - Past Medical History Past Medical History: DM, ESRD (on hemodialysis M, W, F.), Seizures Family History: None Social History: Non Smoker, No Alcohol, Illicit Drug Use (in the past. Pt denies any current illicit drug use.), Single, Lives With Parents Employment:: unemployed. Surgical History: None Psychiatricy History: None Medication: Reviewed Family Medical History - Family Member Mother History Unknown: Yes Ethnicity: Non- Living Status: Still Living Hx Family Cancer: No Hx Family Coronary Artery Disease: No Hx Family Congestive Heart Failure: No Hx Family Hypertension: No Hx Family Stroke: No Hx Family Diabetes: No Hx Family Seizures: No Hx Family Dementia: No Hx Family AIDS: No Hx Family HIV: No Hx Family COPD: No Hx Family Hepatitis: No Hx Family Psychiatric Problems: No Hx Family Tuberculosis: No ED Physical Exam - Physical Examination General/Constitutional: Awake, Alert, No distress, GCS 15, Non-toxic appearing, Ambulatory Other Gen/Cons comments:: Well developed mildly cachectic male in NAD. Breathes comfortably, speaks clearly, interacts normally, and ambulates without difficulty. Head: Atraumatic Eyes: Lids, conjuctiva normal, PERRL, EOMI Skin: No rash, No ecchymosis, No lymphadenopathy Other Skin comments:: Mild decrease in turgor. ENMT: External ears, nose nl, Nasal exam nl, Oropharynx nl Other ENMT comments:: Pt wears hearing aids in both ears; otherwise, ear exam is unremarkable in both ears. Neck: Nontender, Full ROM w/o pain, No JVD, No nuchal rigidity, No mass, No stridor Respiratory: Nl effort/Exclusion, Clear to Auscultation, No Wheeze/Rhonchi/Rales Cardio Vascular: RRR (with HR 98), No murmur, gallop, rubs GI: No tenderness/rebounding/guarding, No organomegaly, No hernia, Normal BS's, Nondistended, No mass/bruits Other GI comments:: Abdomen is soft. A well healed midline longitudinal surgical scar noticed in upper abdomen just superior to umbilicus. Extremities: No tenderness or effusion, No edema Neuro/Psych: Alert/oriented (oriented x 3), Mood normal, No focal deficits ED Labs/Radiology/EKG Results - Lab Results Results: Laboratory Tests 03/26/17 03/26/17 03/26/17 14:58 15:35 15:35 WBC 11.4 H D RBC 4.89 Hgb 14.0 D Hct 41.5 D MCV 84.9 MCH 28.6 MCHC Differential 33.6 RDW 13.9 Plt Count 238 D MPV 7.4 Band Neutrophils % 1 Neutrophils (Manual) 85 H Lymphocytes 13 L Monocytes 1 L Platelet Estimate ADEQUATE PT 11.4 INR 1.09 PTT (Actin FS) 26.5 Sodium Potassium Chloride Carbon Dioxide Anion Gap BUN Creatinine Est GFR ( Amer) Est GFR (Non-Af Amer) BUN/Creatinine Ratio Glucose POC Glucose 396 H Hemoglobin A1c % Calcium Total Bilirubin AST ALT Alkaline Phosphatase Total Protein Albumin Globulin Albumin/Globulin Ratio Amylase Lipase 03/26/17 03/26/17 15:35 15:35 WBC RBC Hgb Hct MCV MCH MCHC Differential RDW Plt Count MPV Band Neutrophils % Neutrophils (Manual) Lymphocytes Monocytes Platelet Estimate PT INR PTT (Actin FS) Sodium 125 L Potassium 5.9 H Chloride 89 L Carbon Dioxide 12.8 L Anion Gap 29.1 H BUN 66 H Creatinine 9.7 H* Est GFR ( Amer) 8.1 Est GFR (Non-Af Amer) 6.7 BUN/Creatinine Ratio 6.8 Glucose 395 H POC Glucose Hemoglobin A1c % 6.5 H Calcium 11.1 H Total Bilirubin 1.0 AST 42 H ALT 164 H Alkaline Phosphatase 448 H Total Protein 9.4 H Albumin 5.1 Globulin 4.3 Albumin/Globulin Ratio 1.2 Amylase 214 H Lipase 365 H - Radiology Results Results: Preliminary report on abdominal sonogram: s/p cholecystectomy. CBD 0.5 cm. No significant findings. See report for details. - EKG Interpretations EKG Time:: 17:05 Rate & Rhythm: Sinus tachycardia with VR 110. Comments:: No acute ischemic changes. quality assurance monitor body: Sinus tachycardia with VR 106. No ectopy. ED Septic Shock - . Is Septic Shock (SBP<90, OR Lactate>4 mmol\L) present?: No - <6hrs of presentation: Vital Signs: Vital Signs - 8 hr 03/26/17 14:21 Temp 98.4 F HR 125 RR 18 BP 127/91 O2 Sat % 98 ED Reassessment (Disposition) - Reassessment Reassessment:: 1657 Pt feels better and remains stable. Lab results just became available for my review. In light of elevated K+, will do EKG and give pt Kayexalate. Pt is to be given regular insulin subcutaneous for hyperglycemia. Pt now c/o upper abdominal pain with palpation, especially at RUQ. Reexamined pt revealed tenderness with palpation in upper abdomen, especially at RUQ. Abdomen remains soft with normoactive BS x 4. No R/G. Nondistended. Negative Urbina's, Borja Bob's, and Pablo's signs. No mass. Abdominal sonogram is to be done in light of elevated amylase, lipase, alkaline phosphatase, and transaminases. Lab results have been reviewed with pt. Management plan has been discussed. 1749 Case was discussed with Dr. Davis. He states that pt has chronic elevated transaminases, amylase, and lipase. He requests no opioid analgesic to be given. Dr. Davis requests to be updated on abdominal sonographic results prior to admission. 2004 Pt remains stable. Preliminary report on abdominal sonogram just became available. Lab and sonographic findings have been reviewed with pt. Management plan has been discussed. Dr. Davis will be contacted again. 2099 I was just informed by my nurse Joan that Dr. Davis called back at about 2044. He already had pt admitted to [facility] under his care. Reassessment Condition:: Improved - Diagnosis Diagnosis:: Hyperkalemia. Dehydration. ESRD on hemodialysis Diabetes mellitus, poorly controlled. Chronic pain syndrome. Abdominal pain with elevated transaminases, alkaline phosphatase, amylase and lipase. Consider chronic pancreatitis. - Patient Disposition Admitted to:: Telemetry Admitting Medical Physician:: Feliciano Davis Time:: 20:45 Condition at Disposition:: Stable, Improved ED Discharge Plan - Patient Disposition Admit/Discharge/Transfer: Acute Care w/in this hosp
[2017-03-26] MEDS ORDERED: Sodium Chloride 0.9% 500 ML IV ONE (14:47)
[2017-03-26 15:50] LABS: MEAN CELL VOLUME 84.9 fl (80-99); MEAN CORPUSCULAR HEMOGLOBIN 28.6 pg (26.0-30.0); MEAN CORPUSCULAR HGB CONC 33.6 pg (28.0-36.0); MEAN PLATELET VOLUME 7.4 fl; RED BLOOD COUNT 4.89 Mil/cmm (4.30-5.70); RED CELL DISTRIBUTION WIDTH 13.9 % (11.5-20.0)
[2017-03-26 15:58] LABS: INR 1.09 (0.5-1.4); PROTHROMBIN TIME (TEST) 11.4 SECONDS (9.5-11.5)
[2017-03-26 16:00] LABS: HEMATOCRIT 41.5 % (41.0-60); PLATELET COUNT 238 Th/cmm (150-400); WHITE BLOOD COUNT 11.4 Th/cmm (4.8-10.8)
[2017-03-26 16:01] LABS: ALB/GLOB RATIO 1.2 (1.0-1.8); ANION GAP 29.1 (7.0-16.0); BUN/CREATININE RATIO 6.8; CALCIUM SERUM 11.1 mg/dL (8.6-10.3); CARBON DIOXIDE 12.8 mEq/L (21.0-31.0); POTASSIUM SERUM 5.9 mEq/L (3.5-5.1)
[2017-03-26 16:11] LABS: BAND NEUTROPHILE 1 % (0-10); NEUTROPHILS 85 % (40-80); PLATELET ESTIMATE ADEQUATE (NORMAL)
[2017-03-26 16:15] LABS: CREATININE - SERUM 9.7 mg/dL (0.7-1.3)
[2017-03-26] MEDS ORDERED: INSULIN HUMAN REGULAR 100 UNITS/ML UNIT SUBQ ONE (17:03)
[2017-03-26] MEDS ORDERED: Sodium Chloride 0.9% 1,000 ML IV ONE (17:14)
[2017-03-26] MEDS ORDERED: INSULIN HUMAN REGULAR 100 UNITS/ML UNIT ONE (17:18)
[2017-03-26 20:54] VITALS: BP 127/91
[2017-03-26] MEDS ORDERED: Hydrocodone/APAP 5mg/325mg Tab PO PRN (21:17)
[2017-03-26] MEDS ORDERED: Sodium Chloride 0.9% 1,000 ML IV SCH (21:30)
[2017-03-26] MEDS: D5-0.9%NS 1,000 ML IV SCH (22:57)
[2017-03-27 06:32] LABS: HEMATOCRIT 40.3 % (41.0-60); HEMOGLOBIN 13.4 gm/dL (12-16); MEAN CELL VOLUME 84.4 fl (80-99); MEAN CORPUSCULAR HGB CONC 33.2 pg (28.0-36.0); PLATELET COUNT 201 Th/cmm (150-400); RED BLOOD COUNT 4.77 Mil/cmm (4.30-5.70); RED CELL DISTRIBUTION WIDTH 13.6 % (11.5-20.0); WHITE BLOOD COUNT 12.4 Th/cmm (4.8-10.8)
[2017-03-27] MEDS: INSULIN ASPART SLIDING SCALE 100 UNITS/ML UNIT SUBQ SCH ×4 (06:38→21:43)
[2017-03-27 06:42] LABS: ALB/GLOB RATIO 1.2 (1.0-1.8); BILIRUBIN,TOTAL 0.8 mg/dL (0.3-1.0); CALCIUM SERUM 10.3 mg/dL (8.6-10.3); CARBON DIOXIDE 13.5 mEq/L (21.0-31.0); POTASSIUM SERUM 5.5 mEq/L (3.5-5.1)
[2017-03-27 06:54] LABS: CREATININE - SERUM 10.4 mg/dL (0.7-1.3)
[2017-03-27] MEDS: Vitamin B Complex w/Vitamin C Tab PO SCH (09:44)
[2017-03-27] MEDS: Venlafaxine HCl ER 37.5 mg Tab PO SCH (09:58)
--- NOTE | 2017-03-27 10:09 | History & Physical ---
ADMIT DATE: 03/27/2017 CHIEF COMPLAINT: Doctor, "I have recurrent nausea and vomiting since my discharge." HISTORY OF PRESENT ILLNESS: The patient was recently discharged to home after the patient had a blood transfusion when he was here in the Emergency Room and reported to have a hemoglobin of 7.2. The patient was also noted to have significant depression. The patient was discharged on Effexor XR. According to the patient, the mother who brought him to the Emergency Room stating that he has been having recurrent nausea and vomiting for the last 3 days. The patient's vomiting is consistent with gastric content without any blood. The patient has been moving bowel movement without any difficulty. The patient does have a significant medical problems, which include diabetes along with seizure and end-stage kidney disease and hemodialysis. The patient had multiple blood transfusions. When the patient arrived in the Emergency Room, it was noted that the patient's liver functions were abnormal more than usual and lipase was also elevated. The patient was also noted to have significant hyponatremia with blood sugar 125, potassium 5.4 to 5.9 along with elevated blood sugar. The patient is advised to be admitted for further management in the view of his persistent nausea, vomiting along with abnormal liver function tests and elevated lipase. The patient did have attempt history of abnormal cholelithiasis and Dr. No has done surgical intervention for him. The patient is currently extremely tender on his abdomen. PAST MEDICAL HISTORY: Remarkable for; 1. Diabetes. 2. Seizure disorder. 3. Hard of hearing. 4. End-stage renal disease, on hemodialysis. 5. Anxiety and depression. MEDICATIONS AT HOME: List has been reviewed and reconciled appropriately. ALLERGIES: The patient is allergic to not any medications. SOCIAL HISTORY: He lives with his parents and father is of eye hole provider. The patient has no smoking cigarette, alcohol or drug use. FAMILY MEDICAL HISTORY: Remarkable for hypertension. REVIEW OF SYSTEMS: As consistent of above-mentioned symptoms, but negative for any fever or chills. Denies any chest pain, shortness of breath. Denies any seizure or syncopal episode. PHYSICAL EXAMINATION: GENERAL: The patient is alert, awake, lying in the bed. VITAL SIGNS: Temperature 98.4, pulse is 120, respiratory rate is 20, blood pressure 140/90. HEENT: Normocephalic, atraumatic. Extraocular muscles are intact. Bilateral hearing aid noted. Poor dentition noted. Tongue were pink and coated. NECK: Supple, no JVD. No hepatojugular reflux. No lymphadenopathy, thyromegaly or carotid bruit. HEART: Both heart sounds are regular. CHEST: Lung equal in expansion with no expiratory wheezing. ABDOMEN: Soft. Multiple surgical scars noted and it unable to assess abdomen because the patient does not let me touch because of his significant guarding and tenderness. Bowel sounds are present. EXTREMITIES: No edema, no cyanosis. AV graft in the left upper extremity noted. NEUROLOGIC: Alert, awake, follows commands. Decreased power throughout the upper and lower extremity. AVAILABLE DIAGNOSTIC DATA: White count of 11.4, hemoglobin 14, platelet count of 238. Sodium 125, potassium 5.9, chloride 89, CO2 12.8. BUN and creatinine is 66 and 9.7. Blood sugar of 395, calcium of 11.1. AST is 42, ALT is 164, alkaline phosphatase of 448, total protein is 9.4, amylase 214, lipase of 365. Serum ketones were negative. I do not have further diagnostic studies on this patient. CLINICAL IMPRESSION: 1. Persistent nausea, vomiting for 3 days with abnormal liver function test consistent with obstructive pattern with elevated lipase and amylase suspect the patient has acute pancreatitis, etiology needs to be determined, needs further evaluation. 2. Electrolyte imbalance. 3. Metabolic acidosis from the uremia. 4. Diabetes mellitus with elevated blood sugar. 5. Seizure disorder. 6. Bilateral hearing loss. 7. Recurrent anemia, status post blood transfusion secondary to chronic kidney disease. PLAN: 1. Admit this patient to Med/Surg floor. 2. NPO. 3. IV fluid. 4. Seizure medication. 5. Sliding scale insulin. 6. IV antibiotic. 7. General nursing care. 8. Cardiac monitoring. 9. Hemodialysis. 10. Nephrology consultation. 11. GI consultation. 12. Surgical consultation. 13. HIDA scan. 14. Obtain CT scan of the abdomen and pelvis with and without IV contrast. 15. Seizure precaution. 16. Seizure medication. 17. Care plan reviewed and discussed with staff. JOB# [id number]
--- NOTE | 2017-03-27 11:53 | Diagnostic Imaging Report ---
Exam: Ultrasound examination the abdomen. HISTORY: Abnormal liver function tests. : Findings real-time ultrasound examination of the abdomen performed multiple planes. The study demonstrates normal echogenicity liver parenchyma. There is evidence of previous cholecystectomy. The common bile duct measures 5 mm. The pancreas poorly seen. The kidneys are not clearly visualized. The spleen is intact. No free fluid is noted. IMPRESSION: Limited examination of the abdomen due to large amount of intra-abdominal bowel content. Status post cholecystectomy. Portable visualization of kidneys. Nonvisualized pancreas. Side-port
[2017-03-27 13:36] LABS: BAND NEUTROPHILE 0 % (0-10); NEUTROPHILS 82 % (40-80); PLATELET ESTIMATE ADEQUATE (NORMAL); TOTAL CELLS COUNTED 100
--- NOTE | 2017-03-27 20:34 | Consultation ---
DATE OF CONSULTATION: 03/27/2017 INPATIENT GI CONSULT REFERRING PHYSICIAN: Feliciano Davis M.D. REASON FOR CONSULTATION: Nausea, vomiting. HISTORY OF PRESENT ILLNESS: This is a 31-year-old male who was admitted for nausea and vomiting. The patient at this time is not a good historian. He may have received medications, making him quite somnolent. I am being asked to see him because of his nausea and vomiting. There have been no reports of any GI bleeding. PAST MEDICAL HISTORY: Include chronic kidney disease, on hemodialysis; diabetes; seizure disorder; deafness; anxiety; and depression. PAST SURGICAL HISTORY: None to the abdomen recently. FAMILY HISTORY: Noncontributory. SOCIAL HISTORY: He denies any tobacco, alcohol or IV drug usage. ALLERGIES: None. CURRENT MEDICATIONS: Tylenol, insulin, Keppra, Zofran, and Effexor. REVIEW OF SYSTEMS: Unobtainable. PHYSICAL EXAMINATION: VITAL SIGNS: Temperature 98.1, breathing 18, pulse of 121, blood pressure 138/88, satting 99%. GENERAL: In no apparent distress. EYES: Anicteric. Normal conjunctivae. HEENT: Normocephalic, atraumatic. Moist mucous membranes. NECK: Soft, supple. CHEST: Clear. No effort. CARDIOVASCULAR: Regular rate and rhythm. ABDOMEN: Soft, nontender, nondistended. SKIN: Warm, dry. EXTREMITIES: Reveal no cyanosis. PSYCHOLOGICAL: Somnolent. LABORATORY DATA: Show white count 12.4, hemoglobin 13.4, platelets of 201. INR is 1.09, total bilirubin is 0.8, AST 28, ALT 22, alkaline phosphatase 368, lipase 342. Creatinine 10.4. IMPRESSION: A 31-year-old male with nausea, vomiting, etiology could be multifactorial. The patient does have renal failure with an elevated creatinine, which can cause nausea and vomiting. He also has hyperglycemia, which could also cause nausea, vomiting, GI related issues. His LFTs are elevated, it is not certain if he has ever had a cholecystectomy, but the abdominal ultrasound, which was reviewed, seems to suggest a cholecystectomy has been performed. The elevated LFTs could be due to medication effect, underlying liver disease or retained common bile duct stone. MRCP can be pursued to rule out possibility of a retained common bile duct stone. If his symptoms of nausea and vomiting were to persist, an endoscopy may be also helpful to determine if he has component of esophagitis, gastritis or peptic ulcer disease. Other possibility could also involves ileus, small-bowel obstruction. Small bowel follow-through can also be performed versus CT scan. In reviewing prior records of CT scan, did show cholecystectomy. He also had an MRI done showing no obvious common bile duct stone. He also had a HIDA scan done which was unremarkable. PLAN: 1. Will consider endoscopy if the patient has not had one before, but we will review records to see if it was done within the last several months. 2. We will consider small bowel follow-through. 3. Follow LFTs. 4. Will need Nephrology consultation given the azotemia. 5. Will consider gastric emptying study. Thank you for allowing me to participate. Please call me if any questions. JOB# [id number]
[2017-03-27] MEDS: Hydrocodone/APAP 5mg/325mg Tab PO PRN (21:40)
--- NOTE | 2017-03-27 23:47 | Consultation ---
DATE OF CONSULTATION: 03/27/2017 REASON FOR ADMISSION: Nausea, vomiting, intractable. The patient is a 31-year-old male who has a past medical history of diabetes, hypertension and end-stage renal disease, failed the transplant graft, has depression, he has severe abdominal pain before and he has had cholecystectomy. He comes to the hospital again persistent intractable nausea or vomiting. PAST MEDICAL HISTORY: Diabetes, hypertension, seizure disorder, hard of hearing, end-stage renal disease, anxiety, depression, and cognitive impairment. MEDICATIONS: As listed in the chart. ALLERGIES: No known drug allergies. SOCIAL HISTORY: The patient lives with his family. He denies any smoking, alcohol or drugs. FAMILY HISTORY: Unremarkable other than for hypertension. REVIEW OF SYSTEMS: Everything as mentioned above, he has had multiple admissions to the hospital for nausea, vomiting and abdominal pain. He had complaints of abdominal pain although multiple imaging studies have shown no evidence of pathology there. LABORATORY DATA: White count is 12.4, H and H is 13 and 44, platelets is 201. His potassium is 5.1, bicarbonate is 13, his BUN is 72, creatinine is 10.4, his sugar is 329, his alkaline phosphatase is elevated to 368, his ALT is elevated at 122, lipase is 342. An abdominal ultrasound showed status post cholecystectomy. No visualization of the pancreas. PHYSICAL EXAMINATION: VITAL SIGNS: Blood pressure is 138/88, heart rate is 120. Temperature is 98.1. HEENT: Anicteric sclerae. NECK: Supple, no JVD. LUNGS: Bilateral clear to auscultation and has few basal rhonchi. CARDIOVASCULAR: S1, S2 . ABDOMEN: Soft. Some tenderness on deep palpation. Bowel sounds are present. ASSESSMENT: This is a 31-year-old male with a past medical history of end-stage renal disease, diabetes, hypertension, cognitive impairment, history of failed kidney transplant, admitted with intractable nausea and vomiting. The patient is being seen by GI specialist. We will continue the patient on his regular hemodialysis support and reassess him in the morning. JOB# [id number]
[2017-03-28] MEDS: D5-0.9%NS 1,000 ML IV SCH (02:46)
[2017-03-28] MEDS: Hydrocodone/APAP 5mg/325mg Tab PO PRN ×2 (05:54→18:18)
[2017-03-28 06:36] LABS: % BASOPHILS 0.1 % (0.0-2.0); % EOSINOPHILS 1.9 % (0.0-5.0); % LYMPHOCYTES 16.8 % (20.0-50.0); % NEUTROPHILS 74.2 % (40.0-80.0); HEMATOCRIT 39.6 % (41.0-60); HEMOGLOBIN 13.4 gm/dL (12-16); MEAN CELL VOLUME 84.1 fl (80-99); MEAN CORPUSCULAR HEMOGLOBIN 28.5 pg (26.0-30.0); MEAN CORPUSCULAR HGB CONC 33.9 pg (28.0-36.0); MEAN PLATELET VOLUME 7.2 fl; NEUTROPHILE ABSOLUTE 6.7 Th/cmm (1.8-8.0); PLATELET COUNT 181 Th/cmm (150-400); RED BLOOD COUNT 4.71 Mil/cmm (4.30-5.70); RED CELL DISTRIBUTION WIDTH 13.9 % (11.5-20.0)
[2017-03-28 06:52] LABS: ALB/GLOB RATIO 1.2 (1.0-1.8); ANION GAP 20.3 (7.0-16.0); BILIRUBIN,DIRECT 0.21 mg/dL (0.0-0.2); BILIRUBIN,TOTAL 0.8 mg/dL (0.3-1.0); BUN/CREATININE RATIO 5.6; CALCIUM SERUM 10.2 mg/dL (8.6-10.3); CARBON DIOXIDE 22.5 mEq/L (21.0-31.0); POTASSIUM SERUM 3.8 mEq/L (3.5-5.1)
[2017-03-28] MEDS: INSULIN ASPART SLIDING SCALE 100 UNITS/ML UNIT SUBQ SCH ×4 (07:03→20:42)
[2017-03-28 07:04] LABS: CREATININE - SERUM 8.5 mg/dL (0.7-1.3)
--- NOTE | 2017-03-28 08:30 | Diagnostic Imaging Report ---
Radionuclide biliary scan (HIDA scan) HISTORY: Abnormal liver function test, status post cholecystectomy The exam is suboptimal and compromised due to patient motion and difficulty in cooperation. 4.6 mCi technetium labeled biliary age and was using the exam. There is normal hepatic uptake and clearance. There is excretion of nuclide into the common bile duct and small bowel. No extrabiliary collections of nuclide are seen. Specifically, no evidence of a bile leak. The gallbladder is not seen consistent with patient's surgical history. IMPRESSION: 1. Nonvisualization of the gallbladder consistent with patient's history 2. No extra biliary collections radionuclide. Specifically, no evidence of bile leak.
[2017-03-28] MEDS: Venlafaxine HCl ER 37.5 mg Tab PO SCH (08:52)
[2017-03-28] MEDS: Vitamin B Complex w/Vitamin C Tab PO SCH (08:52)
[2017-03-28] MEDS ORDERED: IOHEXOL 300MG/ML 100 ML VIAL IVP ONE (11:26)
[2017-03-28] MEDS ORDERED: Diatrizoate Meglumine/Diatri 30 mL Sol PO ONE (12:48)
--- NOTE | 2017-03-28 13:12 | GI Progress Note ---
Subjective - Review of Systems Subjective: NO N/V STILL HAS CHRONIC PAIN Objective - Results Result Diagrams: 03/28/17 06:20 03/28/17 06:20 Recent Labs: Laboratory Last Values WBC 9.0 Th/cmm (4.8-10.8) D 03/28/17 06:20 RBC 4.71 Mil/cmm (4.30-5.70) 03/28/17 06:20 Hgb 13.4 gm/dL (12-16) 03/28/17 06:20 Hct 39.6 % (41.0-60) L 03/28/17 06:20 MCV 84.1 fl (80-99) 03/28/17 06:20 MCH 28.5 pg (26.0-30.0) 03/28/17 06:20 MCHC Differential 33.9 pg (28.0-36.0) 03/28/17 06:20 RDW 13.9 % (11.5-20.0) 03/28/17 06:20 Plt Count 181 Th/cmm (150-400) 03/28/17 06:20 MPV 7.2 fl 03/28/17 06:20 Neutrophils % 74.2 % (40.0-80.0) 03/28/17 06:20 Band Neutrophils % 0 % (0-10) 03/27/17 05:55 Lymphocytes % 16.8 % (20.0-50.0) L 03/28/17 06:20 Monocytes % 7.0 % (2.0-10.0) 03/28/17 06:20 Eosinophils % 1.9 % (0.0-5.0) 03/28/17 06:20 Basophils % 0.1 % (0.0-2.0) 03/28/17 06:20 Neutrophils (Manual) 82 % (40-80) H 03/27/17 05:55 Lymphocytes 15 % (20-50) L 03/27/17 05:55 Monocytes 3 % (2-10) 03/27/17 05:55 Platelet Estimate ADEQUATE (NORMAL) 03/27/17 05:55 PT 11.4 SECONDS (9.5-11.5) 03/26/17 15:35 INR 1.09 (0.5-1.4) 03/26/17 15:35 PTT (Actin FS) 26.5 SECONDS (26.0-38.0) 03/26/17 15:35 Sodium 137 mEq/L (136-145) 03/28/17 06:20 Potassium 3.8 mEq/L (3.5-5.1) 03/28/17 06:20 Chloride 98 mEq/L (98-107) 03/28/17 06:20 Carbon Dioxide 22.5 mEq/L (21.0-31.0) 03/28/17 06:20 Anion Gap 20.3 (7.0-16.0) H 03/28/17 06:20 BUN 48 mg/dL (7-25) H 03/28/17 06:20 Creatinine 8.5 mg/dL (0.7-1.3) H* 03/28/17 06:20 Est GFR ( Amer) 9.4 ml/min (>90) 03/28/17 06:20 Est GFR (Non-Af Amer) 7.8 ml/min 03/28/17 06:20 BUN/Creatinine Ratio 5.6 03/28/17 06:20 Glucose 171 mg/dL (70-105) H 03/28/17 06:20 POC Glucose 192 MG/DL (70 - 105) H 03/28/17 12:13 Hemoglobin A1c % 6.5 % (4.0-6.0) H 03/26/17 15:35 Calcium 10.2 mg/dL (8.6-10.3) 03/28/17 06:20 Total Bilirubin 0.8 mg/dL (0.3-1.0) 03/28/17 06:20 Direct Bilirubin 0.21 mg/dL (0.0-0.2) H 03/28/17 06:20 AST 27 U/L (13-39) 03/28/17 06:20 ALT 97 U/L (7-52) H 03/28/17 06:20 Alkaline Phosphatase 324 U/L (34-104) H 03/28/17 06:20 Total Protein 7.9 gm/dL (6.0-8.3) 03/28/17 06:20 Albumin 4.3 gm/dL (4.2-5.5) 03/28/17 06:20 Globulin 3.6 gm/dL 03/28/17 06:20 Albumin/Globulin Ratio 1.2 (1.0-1.8) 03/28/17 06:20 Triglycerides 163 mg/dL (<150) H 03/27/17 05:55 Cholesterol 165 mg/dL (<200) 03/27/17 05:55 LDL Cholesterol Direct 46 mg/dL (75-193) L 03/27/17 05:55 HDL Cholesterol 88 mg/dL (23-92) 03/27/17 05:55 Amylase 191 U/L (29-103) H 03/27/17 05:55 Lipase 321 U/L (11-82) H 03/28/17 06:20 Serum Ketones NEGATIVE (NEGATIVE) 03/26/17 15:35 - Physical Exam Vitals and I&O: Vital Signs Temp 98.4 F 03/28/17 12:00 Pulse 102 03/28/17 12:00 Resp 18 03/28/17 13:00 BP 162/94 03/28/17 12:00 Pulse Ox 98 03/28/17 12:00 Intake & Output 03/27/17 03/28/17 03/28/17 18:59 06:59 18:59 Intake Total 1400 281.667 Output Total 500 Balance 900 281.667 Weight (lbs) 41.458 kg 41.277 kg Intake: Intake, IV Amount 1000 181.667 D5-0.9%Ns 1,000 ml @ 50 1000 181.667 mls/hr IV .Q20H RADHA Rx#: [id number] Oral 400 100 Output: Hemodialysis 500 Other: # Voids 3 0 # Bowel Movements 0 Active Medications: Current Medications Acetaminophen (Tylenol) 650 mg PO Q6H PRN PRN Reason: Mild Pain/Headache/T above 101 Stop: 05/25/17 21:16 Last Admin: 03/28/17 07:55 Dose: 650 mg Acetaminophen/Hydrocodone Bitart ([place] 5mg/325mg) 1 tab PO Q6H PRN PRN Reason: Pain (Moderate) Stop: 05/26/17 20:59 Last Admin: 03/28/17 05:54 Dose: 1 tab Dextrose/Sodium Chloride (D5-0.9%Ns) 1,000 mls @ 50 mls/hr IV .Q20H RADHA Stop: 05/25/17 21:25 Last Infusion: 03/28/17 06:24 Dose: 50 mls/hr Insulin Aspart (Novolog Insulin Sliding Scale) 0 units SUBQ ACHS RADHA PRN Reason: Protocol Stop: 05/26/17 07:29 Last Admin: 03/28/17 12:26 Dose: 2 units Levetiracetam (Keppra) 500 mg PO BID [facility] Stop: 05/26/17 08:59 Last Admin: 03/28/17 08:52 Dose: 500 mg Miscellaneous (Clinical Monitoring) 1 ea MC DAILY PRN PRN Reason: RENAL Stop: 05/27/17 11:09 Ondansetron HCl (Zofran) 4 mg IVP Q6H PRN PRN Reason: Nausea / Vomiting Stop: 05/25/17 21:16 Sodium Bicarbonate (Sodium Bicarbonate) 650 mg PO DAILY RADHA Stop: 05/26/17 08:59 Last Admin: 03/28/17 08:52 Dose: 650 mg Venlafaxine HCl (Effexor Xr) 37.5 mg PO DAILY [facility] Stop: 05/26/17 08:59 Last Admin: 03/28/17 08:52 Dose: 37.5 mg Vitamin B Complex/Vit C/Folic Acid (Vitamin B Complex W/Vitamin C) 1 tab PO DAILY RADHA Stop: 05/26/17 08:59 Last Admin: 03/28/17 08:52 Dose: 1 tab - Procedures Procedures: Procedures Procedure Code Date ABDOMEN SURGERY PROCEDURE 53792 10/21/16 BLOOD TRANSFUSION SERVICE 90767 03/20/17 CONTROL BLEEDING IN GASTROINTESTINAL TRACT, ENDO [id number] 12/11/16 DILATION OF COMMON BILE DUCT WITH INTRALUMINAL DEVICE, ENDO [id number] 12/11/16 EGD BIOPSY SINGLE/MULTIPLE 36003 02/20/16 EGD CONTROL BLEEDING ANY 88539 12/11/16 ENDO CHOLANGIOPANCREATOGRAPH [id number] 12/11/16 EXCISION OF DUODENUM, ENDO, DIAGN [id number] 02/20/16 EXCISION OF STOMACH, PYLORUS, ENDO, DIAGN [id number] 02/20/16 EXTIRPATION OF MATTER FROM COMMON BILE DUCT, ENDO [id number] 12/11/16 INTRODUCTION OF OTHER THERAPEUTIC SUBSTANCE INTO UP GI, ENDO [id number] 12/11/16 INTRODUCTION OF SERUM/TOX/VACCINE INTO MUSCLE, PERC APPROACH [id number] 11/05/16 PERFORMANCE OF URINARY FILTRATION, <6 HRS/DAY [id number] 03/20/17 PERFORMANCE OF URINARY FILTRATION, MULTIPLE [id number] 12/11/16 PERFORMANCE OF URINARY FILTRATION, SINGLE [id number] 11/05/16 RELEASE GREATER OMENTUM, OPEN APPROACH [id number] 10/21/16 RELEASE LIVER, OPEN APPROACH [id number] 10/21/16 REMOVAL OF GALLBLADDER 38004 10/21/16 RESECTION OF GALLBLADDER, OPEN APPROACH [id number] 10/21/16 TRANSFUSE NONAUT FRESH PLASMA IN PERIPH VEIN, [facility] [id number] 12/11/16 TRANSFUSE NONAUT FROZEN PLASMA IN PERIPH VEIN, [facility] [id number] 12/11/16 TRANSFUSE NONAUT PLATELETS IN PERIPH VEIN, [facility] 19086I0 12/11/16 TRANSFUSE NONAUT RED BLOOD CELLS IN PERIPH VEIN, [facility] [id number] 03/20/17 UPPR GI SCOPE W/SUBMUC INJ 39150 12/11/16 Assessment/Plan - Problem List Patient Problems: All Active Problems COUGH WITH ABDOMINAL PAIN AND H/A (Acute) DRESSING CHANGE REQUESTED TO GRAFT SITE (Acute) HEADACHE, ABDOMINAL PAIN, LEG PAIN (Acute) - Assessment Assessment: 31 YO MALE WITH CKD HAS CHRONIC ABD PAIN RECENT EGD AND ERCP HIDA WAS NEG PT KNOWN TO HAVE [place] 1.AWAIT SBFT TO R/O OBSTRUCTION 2.AWAIT GASTRIC EMPTYING TO R/O GASTROPARESIS 3.GET COPIES OF RECENT EGD AND ERCP
--- NOTE | 2017-03-28 14:20 | Diagnostic Imaging Report ---
CT scan abdomen pelvis with intravenous contrast HISTORY: Pain Total DLP equals 243 CTDI equals 5.3 Following administration of intravenous contrast, axial sections were obtained from the xiphoid process down to the pubic symphysis. The liver exhibits a homogeneous parenchyma. No focal lesions. The spleen appears normal. There is an approximate 4.0 x 3.0 cm neena density in the vicinity of the gastroesophageal junction. Exact relationship to the gastric fundus and distal esophagus is unclear. Etiology is uncertain. The pancreas is atrophic. Numerous small calcifications noted within the pancreatic parenchyma consistent with changes of chronic pancreatitis. Surgical clips are noted in the andrade hepatis region consistent with prior cholecystectomy. There are loops of markedly dilated small bowel. Suggestion of a transition point within the right upper abdomen. Exact relationship to the cecum is uncertain that may be associated with dilatation and wall thickening. Findings consistent with distal bowel obstruction. A small amount of diffuse ascites seen within the abdomen. [place] kidneys are atrophic and exhibits changes of chronic hydronephrosis. The transplant kidney noted within the right iliac fossa region. This is associated with an approximate 1.1 cm calculus. Compared to a prior exam of February 27, 2017, previously noted hydronephrosis has resolved. No other discrete abnormal masses seen within the pelvis. There is a mildly distended somewhat liquefied stool-filled rectum. Question wall thickening through a nondilated sigmoid colon. IMPRESSION: 1. Markedly dilated loops of small bowel with an apparent transition point in the right abdomen. Exact relationship to what appears to be a dilated cecum is uncertain. Findings consistent with a distal small bowel or proximal ascending colon obstruction. 2. 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 3. Atrophic [place] kidneys with findings of chronic hydronephrosis. 4. Atrophic pancreas with multiple small calcifications consistent with chronic pancreatitis. 5. Rounded density in the vicinity of the gastroesophageal junction. Etiology uncertain. Clinical correlation and follow-up recommended. 6. Status post cholecystectomy 7. Liquefied stool-filled within a somewhat distended rectum along with with questionable wall thickening along the sigmoid colon. Inflammatory change (colitis) cannot be excluded. Clinical correlation is needed.
--- NOTE | 2017-03-28 15:34 | Discharge Summary ---
DATE OF DISCHARGE: 03/28/2017 DATE OF DISCHARGE AND DISPOSITION: Discharged on 03/28/2017 to home. PRINCIPAL DIAGNOSES: 1. Acute pancreatitis with abnormal liver function tests. 2. HIDA scan negative for biliary leak. 3. Chronic abdominal pain, most likely secondary to gastroparesis, adhesions, and possibly pain seeking behavior. 4. Electrolyte imbalance, status post hemodialysis. 5. End-stage renal disease, on hemodialysis. 6. Diabetes mellitus with elevated blood sugar. 7. Seizure disorder. 8. Hard of hearing. 9. Noncompliance. 10. Decline in self-care and mobility. 11. Anxiety, depression. BRIEF STATEMENT FOR THE REASON FOR ADMISSION: A 31-year-old [place] male going in and out of the hospital, seen by Psychiatrist for his anxiety and depression. The patient was given naltrexone. According to the patient's mother, he took one dose of naltrexone. The patient started to have a significant amount of abdominal pain and vomiting, which brought him to the Emergency Room where the patient was seen by Emergency Room MD, noted to have increasing liver function tests with amylase and lipase. The patient was advised to be admitted for further treatment. Please refer to my dictated H and P for further information. HOSPITAL COURSE: The patient was admitted to telemetry unit. IV fluid was given. The patient was kept n.p.o. GI consultation requested. The patient was also seen by lead medical technologist for hemodialysis and dialysis was given and his electrolytes were corrected. Blood sugar was also corrected as well with insulin therapy as well. The patient underwent HIDA scan, which was unremarkable for any biliary leak. CT scan of the abdomen and pelvis also negative for any bowel obstruction. The patient's pain was main issue though the patient had a pain seeking behavior. At this time, we decided to give him low dose of [place] on as needed basis and he looked pretty comfortable at this time. I did discuss with the patient's mother over the phone about his chronic abdominal pain and longstanding diabetes and end-stage kidney disease, may contribute to having gastroparesis and chronic opioid use can make it worse as well as previous surgery making having some adhesions causing abdominal pain. The patient has been advised at this time to see MD on regular basis, considering the patient going in and out of the hospital and using Emergency Room as an urgent care and outpatient services. The patient's mother has fully understood at this time. The patient does need to take medication, though it has been prescribed. Diet needs to be monitored and watched, which I have all discussed with the patient's mother over the phone extensively. The patient is discharged home today with a prescription of Keppra, Januvia, sodium bicarbonate, Effexor XR, ____, and iron pill to be continued as well. The patient will be followed by me in my office on next Monday and dialysis to be continued as scheduled. The patient may require gastric emptying study as well as a small bowel series will be done as an outpatient, which I have discussed and family has agreed. JOB# [id number]
--- NOTE | 2017-03-29 00:17 | Consultation ---
DATE OF CONSULTATION: 03/28/2017 REASON FOR CONSULTATION: Psych eval. HISTORY OF PRESENT ILLNESS: A 31-year-old male well known to this clinician. I just saw him last week for depression. Follow up in my office. The patient was discharged recently from this hospital with Effexor XR. I prescribed him naltrexone in the office due to cravings to use opiates, cravings for Dilaudid for example. On [id number], the patient notes he feels depressed, upset, complaining of abdominal pain, asking for morphine. Sleep "okay." Cannot eat much. PAST PSYCHIATRIC HISTORY: Depression. MEDICAL PROBLEMS: Diabetes, seizure disorder, hard of hearing, end-stage renal disease. MEDICATIONS: Reviewed. ALLERGIES: Reviewed. SOCIAL HISTORY: Living with his parents. I met his mom and dad in the office last week. No alcohol, drugs, or tobacco. MENTAL STATUS EXAMINATION: Stated age. Fair eye contact. Speech, decreased content. Mood, "I have pain and I want morphine." Affect constricted. Thought processes were linear. No SI, no intent, no plan. No HI, no intent, no plan. No psychotic symptoms. Insight and judgment reasonable. PROVISIONAL DIAGNOSES: Major depression, unspecified; anxiety, unspecified. MEDICAL: Please see full H and P. RECOMMENDATIONS AND PLAN: Discussed with Dr. Davis. Recommend avoidance of any IV opiates. The patient may be a good Suboxone candidate if he has chronic pain and also cravings to use high abuse potential opiates. No 5150 criteria. Continue Effexor. [facility]# [id number]
[2017-03-29] MEDS: Hydrocodone/APAP 5mg/325mg Tab PO PRN ×2 (05:13→11:58)
[2017-03-29] MEDS: INSULIN ASPART SLIDING SCALE 100 UNITS/ML UNIT SUBQ SCH ×3 (06:43→17:42)
--- NOTE | 2017-03-29 07:26 | Diagnostic Imaging Report ---
Exam: Small bowel follow-through HISTORY: Small bowel obstruction Findings: The KUB the abdomen reviewed. The study demonstrates multiple metallic clips in the right upper quadrant status post cholecystectomy. Residual material is noted in the right colon The stomach distended with air. Bony structures are unremarkable for degenerative changes of pelvis and hip joints. After administration of oral contrast there is evidence of normal progression of contrast material throughout the small bowel with reflux into the cecum. One hour interval x-ray examination of the abdomen demonstrates contrast material progresses into the colon. Contrast the rectum appreciated 4 hours. IMPRESSION: no evidence for small bowel obstruction.
--- NOTE | 2017-03-29 08:16 | Diagnostic Imaging Report ---
Exam: KUB Small bowel obstruction Findings: Frontal examination the abdomen demonstrates contrast material in stomach progresses into the small bowel. There is evidence for distention of small bowel loops consistent with ileus. Bony structures intact. IMPRESSION: Progression of contrast material into the proximal small bowel. Follow-up examination recommended.
[2017-03-29] MEDS: Venlafaxine HCl ER 37.5 mg Tab PO SCH (08:22)
[2017-03-29] MEDS: Vitamin B Complex w/Vitamin C Tab PO SCH (08:22)
[2017-03-29] MEDS ORDERED: Albumin 25% 12.5gm/50mL 12.5 GM/50 ML BTL IV PRN (11:55)
--- NOTE | 2017-03-29 16:41 | GI Progress Note ---
Subjective - Review of Systems Subjective: NO N/V STILL HAS CHRONIC PAIN CONTROLLED Objective - Results Result Diagrams: 03/28/17 06:20 03/28/17 06:20 Recent Labs: Laboratory Last Values WBC 9.0 Th/cmm (4.8-10.8) D 03/28/17 06:20 RBC 4.71 Mil/cmm (4.30-5.70) 03/28/17 06:20 Hgb 13.4 gm/dL (12-16) 03/28/17 06:20 Hct 39.6 % (41.0-60) L 03/28/17 06:20 MCV 84.1 fl (80-99) 03/28/17 06:20 MCH 28.5 pg (26.0-30.0) 03/28/17 06:20 MCHC Differential 33.9 pg (28.0-36.0) 03/28/17 06:20 RDW 13.9 % (11.5-20.0) 03/28/17 06:20 Plt Count 181 Th/cmm (150-400) 03/28/17 06:20 MPV 7.2 fl 03/28/17 06:20 Neutrophils % 74.2 % (40.0-80.0) 03/28/17 06:20 Band Neutrophils % 0 % (0-10) 03/27/17 05:55 Lymphocytes % 16.8 % (20.0-50.0) L 03/28/17 06:20 Monocytes % 7.0 % (2.0-10.0) 03/28/17 06:20 Eosinophils % 1.9 % (0.0-5.0) 03/28/17 06:20 Basophils % 0.1 % (0.0-2.0) 03/28/17 06:20 Neutrophils (Manual) 82 % (40-80) H 03/27/17 05:55 Lymphocytes 15 % (20-50) L 03/27/17 05:55 Monocytes 3 % (2-10) 03/27/17 05:55 Platelet Estimate ADEQUATE (NORMAL) 03/27/17 05:55 PT 11.4 SECONDS (9.5-11.5) 03/26/17 15:35 INR 1.09 (0.5-1.4) 03/26/17 15:35 PTT (Actin FS) 26.5 SECONDS (26.0-38.0) 03/26/17 15:35 Sodium 137 mEq/L (136-145) 03/28/17 06:20 Potassium 3.8 mEq/L (3.5-5.1) 03/28/17 06:20 Chloride 98 mEq/L (98-107) 03/28/17 06:20 Carbon Dioxide 22.5 mEq/L (21.0-31.0) 03/28/17 06:20 Anion Gap 20.3 (7.0-16.0) H 03/28/17 06:20 BUN 48 mg/dL (7-25) H 03/28/17 06:20 Creatinine 8.5 mg/dL (0.7-1.3) H* 03/28/17 06:20 Est GFR ( Amer) 9.4 ml/min (>90) 03/28/17 06:20 Est GFR (Non-Af Amer) 7.8 ml/min 03/28/17 06:20 BUN/Creatinine Ratio 5.6 03/28/17 06:20 Glucose 171 mg/dL (70-105) H 03/28/17 06:20 POC Glucose 104 MG/DL (70 - 105) 03/29/17 11:52 Hemoglobin A1c % 6.5 % (4.0-6.0) H 03/26/17 15:35 Calcium 10.2 mg/dL (8.6-10.3) 03/28/17 06:20 Total Bilirubin 0.8 mg/dL (0.3-1.0) 03/28/17 06:20 Direct Bilirubin 0.21 mg/dL (0.0-0.2) H 03/28/17 06:20 AST 27 U/L (13-39) 03/28/17 06:20 ALT 97 U/L (7-52) H 03/28/17 06:20 Alkaline Phosphatase 324 U/L (34-104) H 03/28/17 06:20 Total Protein 7.9 gm/dL (6.0-8.3) 03/28/17 06:20 Albumin 4.3 gm/dL (4.2-5.5) 03/28/17 06:20 Globulin 3.6 gm/dL 03/28/17 06:20 Albumin/Globulin Ratio 1.2 (1.0-1.8) 03/28/17 06:20 Triglycerides 163 mg/dL (<150) H 03/27/17 05:55 Cholesterol 165 mg/dL (<200) 03/27/17 05:55 LDL Cholesterol Direct 46 mg/dL (75-193) L 03/27/17 05:55 HDL Cholesterol 88 mg/dL (23-92) 03/27/17 05:55 Amylase 191 U/L (29-103) H 03/27/17 05:55 Lipase 321 U/L (11-82) H 03/28/17 06:20 Serum Ketones NEGATIVE (NEGATIVE) 03/26/17 15:35 - Physical Exam Vitals and I&O: Vital Signs Temp 97.6 F 03/29/17 15:42 Pulse 111 03/29/17 15:42 Resp 18 03/29/17 15:42 BP 155/93 03/29/17 12:28 Pulse Ox 96 03/29/17 15:42 Intake & Output 03/28/17 03/29/17 03/29/17 18:59 06:59 18:59 Intake Total 250 Balance 250 Weight (lbs) 41.277 kg 41.277 kg Intake: Oral 250 Other: # Voids 3 3 # Bowel Movements 2 Stool Characteristics Liquid Active Medications: Current Medications Acetaminophen (Tylenol) 650 mg PO Q6H PRN PRN Reason: Mild Pain/Headache/T above 101 Stop: 05/25/17 21:16 Last Admin: 03/29/17 08:22 Dose: 650 mg Acetaminophen/Hydrocodone Bitart (Keo 5mg/325mg) 1 tab PO Q6H PRN PRN Reason: Pain (Moderate) Stop: 05/26/17 20:59 Last Admin: 03/29/17 11:58 Dose: 1 tab Dextrose/Sodium Chloride (D5-0.9%Ns) 1,000 mls @ 50 mls/hr IV .Q20H RADHA Stop: 05/25/17 21:25 Last Infusion: 03/28/17 06:24 Dose: 50 mls/hr Albumin Human (Albutein 25%) 12.5 gm in 50 mls @ 50 mls/hr IV UD PRN PRN Reason: BP Support During HD Stop: 03/30/17 23:59 Insulin Aspart (Novolog Insulin Sliding Scale) 0 units SUBQ ACHS RADHA PRN Reason: Protocol Stop: 05/26/17 07:29 Last Admin: 03/29/17 11:53 Dose: Not Given Levetiracetam (Keppra) 500 mg PO BID [facility] Stop: 05/26/17 08:59 Last Admin: 03/29/17 08:23 Dose: 500 mg Miscellaneous (Clinical Monitoring) 1 ea MC DAILY PRN PRN Reason: RENAL Stop: 05/27/17 11:09 Ondansetron HCl (Zofran) 4 mg IVP Q6H PRN PRN Reason: Nausea / Vomiting Stop: 05/25/17 21:16 Sodium Bicarbonate (Sodium Bicarbonate) 650 mg PO DAILY RADHA Stop: 05/26/17 08:59 Last Admin: 03/29/17 08:23 Dose: 650 mg Venlafaxine HCl (Effexor Xr) 37.5 mg PO DAILY [facility] Stop: 05/26/17 08:59 Last Admin: 03/29/17 08:22 Dose: 37.5 mg Vitamin B Complex/Vit C/Folic Acid (Vitamin B Complex W/Vitamin C) 1 tab PO DAILY RADHA Stop: 05/26/17 08:59 Last Admin: 03/29/17 08:22 Dose: 1 tab - Procedures Procedures: Procedures Procedure Code Date ABDOMEN SURGERY PROCEDURE 66721 10/21/16 BLOOD TRANSFUSION SERVICE 34489 03/20/17 CONTROL BLEEDING IN GASTROINTESTINAL TRACT, ENDO [id number] 12/11/16 DILATION OF COMMON BILE DUCT WITH INTRALUMINAL DEVICE, ENDO [id number] 12/11/16 EGD BIOPSY SINGLE/MULTIPLE 84121 02/20/16 EGD CONTROL BLEEDING ANY 18239 12/11/16 ENDO CHOLANGIOPANCREATOGRAPH 33502 12/11/16 EXCISION OF DUODENUM, ENDO, DIAGN [id number] 02/20/16 EXCISION OF STOMACH, PYLORUS, ENDO, DIAGN [id number] 02/20/16 EXTIRPATION OF MATTER FROM COMMON BILE DUCT, ENDO [id number] 12/11/16 INTRODUCTION OF OTHER THERAPEUTIC SUBSTANCE INTO UP GI, ENDO 6L4R0OS 12/11/16 INTRODUCTION OF SERUM/TOX/VACCINE INTO MUSCLE, PERC APPROACH [id number] 11/05/16 PERFORMANCE OF URINARY FILTRATION, <6 HRS/DAY 5R5W91D 03/20/17 PERFORMANCE OF URINARY FILTRATION, MULTIPLE [id number] 12/11/16 PERFORMANCE OF URINARY FILTRATION, SINGLE 9G8L33U 11/05/16 RELEASE GREATER OMENTUM, OPEN APPROACH [id number] 10/21/16 RELEASE LIVER, OPEN APPROACH [id number] 10/21/16 REMOVAL OF GALLBLADDER 04544 10/21/16 RESECTION OF GALLBLADDER, OPEN APPROACH [id number] 10/21/16 TRANSFUSE NONAUT FRESH PLASMA IN PERIPH VEIN, PERC 54345N8 12/11/16 TRANSFUSE NONAUT FROZEN PLASMA IN PERIPH VEIN, PERC 80433L7 12/11/16 TRANSFUSE NONAUT PLATELETS IN PERIPH VEIN, PERC 13015F8 12/11/16 TRANSFUSE NONAUT RED BLOOD CELLS IN PERIPH VEIN, [facility] 98989N8 03/20/17 UPPR GI SCOPE W/SUBMUC INJ 70443 12/11/16 Assessment/Plan - Problem List Patient Problems: All Active Problems COUGH WITH ABDOMINAL PAIN AND H/A (Acute) DRESSING CHANGE REQUESTED TO GRAFT SITE (Acute) HEADACHE, ABDOMINAL PAIN, LEG PAIN (Acute) - Assessment Assessment: 31 YO MALE WITH CKD HAS CHRONIC ABD PAIN RECENT EGD AND ERCP HIDA WAS NEG PT KNOWN TO HAVE GOYO SBFT NEG BEING D/C 1.NEEDS GASTRIC EMPTYING TO R/O GASTROPARESIS INPATIENT VS OUTPATIENT 2.F/U PCP
--- NOTE | 2017-03-29 16:54 | General Progress Note ---
Subjective - Review of Systems Service Date: 03/29/17 Events since last encounter: discussed with Dr. Davis pain is less, eating, having BM SBO negative for obstruction Objective - Results Result Diagrams: 03/28/17 06:20 03/28/17 06:20 Recent Labs: Laboratory Last Values WBC 9.0 Th/cmm (4.8-10.8) D 03/28/17 06:20 RBC 4.71 Mil/cmm (4.30-5.70) 03/28/17 06:20 Hgb 13.4 gm/dL (12-16) 03/28/17 06:20 Hct 39.6 % (41.0-60) L 03/28/17 06:20 MCV 84.1 fl (80-99) 03/28/17 06:20 MCH 28.5 pg (26.0-30.0) 03/28/17 06:20 MCHC Differential 33.9 pg (28.0-36.0) 03/28/17 06:20 RDW 13.9 % (11.5-20.0) 03/28/17 06:20 Plt Count 181 Th/cmm (150-400) 03/28/17 06:20 MPV 7.2 fl 03/28/17 06:20 Neutrophils % 74.2 % (40.0-80.0) 03/28/17 06:20 Band Neutrophils % 0 % (0-10) 03/27/17 05:55 Lymphocytes % 16.8 % (20.0-50.0) L 03/28/17 06:20 Monocytes % 7.0 % (2.0-10.0) 03/28/17 06:20 Eosinophils % 1.9 % (0.0-5.0) 03/28/17 06:20 Basophils % 0.1 % (0.0-2.0) 03/28/17 06:20 Neutrophils (Manual) 82 % (40-80) H 03/27/17 05:55 Lymphocytes 15 % (20-50) L 03/27/17 05:55 Monocytes 3 % (2-10) 03/27/17 05:55 Platelet Estimate ADEQUATE (NORMAL) 03/27/17 05:55 PT 11.4 SECONDS (9.5-11.5) 03/26/17 15:35 INR 1.09 (0.5-1.4) 03/26/17 15:35 PTT (Actin FS) 26.5 SECONDS (26.0-38.0) 03/26/17 15:35 Sodium 137 mEq/L (136-145) 03/28/17 06:20 Potassium 3.8 mEq/L (3.5-5.1) 03/28/17 06:20 Chloride 98 mEq/L (98-107) 03/28/17 06:20 Carbon Dioxide 22.5 mEq/L (21.0-31.0) 03/28/17 06:20 Anion Gap 20.3 (7.0-16.0) H 03/28/17 06:20 BUN 48 mg/dL (7-25) H 03/28/17 06:20 Creatinine 8.5 mg/dL (0.7-1.3) H* 03/28/17 06:20 Est GFR ( Amer) 9.4 ml/min (>90) 03/28/17 06:20 Est GFR (Non-Af Amer) 7.8 ml/min 03/28/17 06:20 BUN/Creatinine Ratio 5.6 03/28/17 06:20 Glucose 171 mg/dL (70-105) H 03/28/17 06:20 POC Glucose 104 MG/DL (70 - 105) 03/29/17 11:52 Hemoglobin A1c % 6.5 % (4.0-6.0) H 03/26/17 15:35 Calcium 10.2 mg/dL (8.6-10.3) 03/28/17 06:20 Total Bilirubin 0.8 mg/dL (0.3-1.0) 03/28/17 06:20 Direct Bilirubin 0.21 mg/dL (0.0-0.2) H 03/28/17 06:20 AST 27 U/L (13-39) 03/28/17 06:20 ALT 97 U/L (7-52) H 03/28/17 06:20 Alkaline Phosphatase 324 U/L (34-104) H 03/28/17 06:20 Total Protein 7.9 gm/dL (6.0-8.3) 03/28/17 06:20 Albumin 4.3 gm/dL (4.2-5.5) 03/28/17 06:20 Globulin 3.6 gm/dL 03/28/17 06:20 Albumin/Globulin Ratio 1.2 (1.0-1.8) 03/28/17 06:20 Triglycerides 163 mg/dL (<150) H 03/27/17 05:55 Cholesterol 165 mg/dL (<200) 03/27/17 05:55 LDL Cholesterol Direct 46 mg/dL (75-193) L 03/27/17 05:55 HDL Cholesterol 88 mg/dL (23-92) 03/27/17 05:55 Amylase 191 U/L (29-103) H 03/27/17 05:55 Lipase 321 U/L (11-82) H 03/28/17 06:20 Serum Ketones NEGATIVE (NEGATIVE) 03/26/17 15:35 - Physical Exam Vitals and I&O: Vital Signs Temp 97.6 F 03/29/17 15:42 Pulse 111 03/29/17 15:42 Resp 18 03/29/17 15:42 BP 155/93 03/29/17 12:28 Pulse Ox 96 03/29/17 15:42 Intake & Output 03/28/17 03/29/17 03/29/17 18:59 06:59 18:59 Intake Total 250 Balance 250 Weight (lbs) 41.277 kg 41.277 kg Intake: Oral 250 Other: # Voids 3 3 # Bowel Movements 2 Stool Characteristics Liquid Active Medications: Current Medications Acetaminophen (Tylenol) 650 mg PO Q6H PRN PRN Reason: Mild Pain/Headache/T above 101 Stop: 05/25/17 21:16 Last Admin: 03/29/17 08:22 Dose: 650 mg Acetaminophen/Hydrocodone Bitart ([place] 5mg/325mg) 1 tab PO Q6H PRN PRN Reason: Pain (Moderate) Stop: 05/26/17 20:59 Last Admin: 03/29/17 11:58 Dose: 1 tab Dextrose/Sodium Chloride (D5-0.9%Ns) 1,000 mls @ 50 mls/hr IV .Q20H RADHA Stop: 05/25/17 21:25 Last Infusion: 03/28/17 06:24 Dose: 50 mls/hr Albumin Human (Albutein 25%) 12.5 gm in 50 mls @ 50 mls/hr IV UD PRN PRN Reason: BP Support During HD Stop: 03/30/17 23:59 Insulin Aspart (Novolog Insulin Sliding Scale) 0 units SUBQ ACHS RADHA PRN Reason: Protocol Stop: 05/26/17 07:29 Last Admin: 03/29/17 11:53 Dose: Not Given Levetiracetam (Keppra) 500 mg PO BID RADHA Stop: 05/26/17 08:59 Last Admin: 03/29/17 08:23 Dose: 500 mg Miscellaneous (Clinical Monitoring) 1 ea MC DAILY PRN PRN Reason: RENAL Stop: 05/27/17 11:09 Ondansetron HCl (Zofran) 4 mg IVP Q6H PRN PRN Reason: Nausea / Vomiting Stop: 05/25/17 21:16 Sodium Bicarbonate (Sodium Bicarbonate) 650 mg PO DAILY [facility] Stop: 05/26/17 08:59 Last Admin: 03/29/17 08:23 Dose: 650 mg Venlafaxine HCl (Effexor Xr) 37.5 mg PO DAILY [facility] Stop: 05/26/17 08:59 Last Admin: 03/29/17 08:22 Dose: 37.5 mg Vitamin B Complex/Vit C/Folic Acid (Vitamin B Complex W/Vitamin C) 1 tab PO DAILY RADHA Stop: 05/26/17 08:59 Last Admin: 03/29/17 08:22 Dose: 1 tab - Procedures Procedures: Procedures Procedure Code Date ABDOMEN SURGERY PROCEDURE 63441 10/21/16 BLOOD TRANSFUSION SERVICE 89409 03/20/17 CONTROL BLEEDING IN GASTROINTESTINAL TRACT, ENDO [id number] 12/11/16 DILATION OF COMMON BILE DUCT WITH INTRALUMINAL DEVICE, ENDO [id number] 12/11/16 EGD BIOPSY SINGLE/MULTIPLE 49941 02/20/16 EGD CONTROL BLEEDING ANY 32640 12/11/16 ENDO CHOLANGIOPANCREATOGRAPH 73222 12/11/16 EXCISION OF DUODENUM, ENDO, DIAGN 8PF40UZ 02/20/16 EXCISION OF STOMACH, PYLORUS, ENDO, DIAGN 4FT08SB 02/20/16 EXTIRPATION OF MATTER FROM COMMON BILE DUCT, ENDO 3DF25XW 12/11/16 INTRODUCTION OF OTHER THERAPEUTIC SUBSTANCE INTO UP GI, ENDO [id number] 12/11/16 INTRODUCTION OF SERUM/TOX/VACCINE INTO MUSCLE, PERC APPROACH 5F6087P 11/05/16 PERFORMANCE OF URINARY FILTRATION, <6 HRS/DAY 2A5G93Q 03/20/17 PERFORMANCE OF URINARY FILTRATION, MULTIPLE 7P0G99R 12/11/16 PERFORMANCE OF URINARY FILTRATION, SINGLE 1G6G46O 11/05/16 RELEASE GREATER OMENTUM, OPEN APPROACH [id number] 10/21/16 RELEASE LIVER, OPEN APPROACH [id number] 10/21/16 REMOVAL OF GALLBLADDER 47505 10/21/16 RESECTION OF GALLBLADDER, OPEN APPROACH [id number] 10/21/16 TRANSFUSE NONAUT FRESH PLASMA IN PERIPH VEIN, PERC 58506Q4 12/11/16 TRANSFUSE NONAUT FROZEN PLASMA IN PERIPH VEIN, PERC 70458U1 12/11/16 TRANSFUSE NONAUT PLATELETS IN PERIPH VEIN, PERC 26381Z1 12/11/16 TRANSFUSE NONAUT RED BLOOD CELLS IN PERIPH VEIN, PERC 38973R6 03/20/17 UPPR GI SCOPE W/SUBMUC INJ 68703 12/11/16 Assessment/Plan - Problem List Patient Problems: All Active Problems COUGH WITH ABDOMINAL PAIN AND H/A (Acute) DRESSING CHANGE REQUESTED TO GRAFT SITE (Acute) HEADACHE, ABDOMINAL PAIN, LEG PAIN (Acute) Nutritional Asmnt/Malnutr-PDOC - Dietary Evaluation Malnutrition Findings (Please click <Entered> for more info): Nutritional Asmnt/Malnutrition Start: 03/27/17 16: 25 Text: Status: Active Freq: Document 03/27/17 16:25 LCHENG (Rec: 03/27/17 16:58 LCHENG [email or web address]) Nutritional Asmnt/Malnutrition Patient General Information Nutritional Screening High Risk Consult Diagnosis hyponatremia and pancretitis Pertinent Medical Hx/Surgical Hx DM, sezure, hard of hearing, ESRD on HD, anxiety and depression Subjective Information Consult recieved for high blood glucose. Pt was admitted for N/V x 3 days. Pt seen resting in bed, awake, appeared weak. Pt did not want to talk much, not able to obtain nutrition hx. Denied N/ V today. Per H&P, pt had illicit drug use in the past. Current Diet Order/ Nutrition Support NPO Pertinent Medications D5, novolog, Vitamin B complex , Vitamin C Pertinent Labs 03/27 Na 131L, K 5.5H, Cl 96L, BUN 73H, Cr 10.4H, Glu 229, POC 165-396, A1C 6.5, AST 28, ALT 122 Nutritional Hx/Data Height 1.52 m Height (Calculated Centimeters) 152.4 Current Weight (lbs) 41.458 kg Weight (Calculated Kilograms) 41.5 Weight (Calculated Grams) 59828.3 [place] Body Weight 106 % [place] Body Weight 91 Body Mass Index (BMI) 17.8 Weight Status Underweight GI Symptoms GI Symptoms None Usual diet at home not able to obtain Skin Integrity/Comment: intact Estimated Nutritional Goals Kcals Calculated 1446-1687kcal (30-35kcal/kg based on IBW 48.2kg) Protein g/k.2-1.4 Protein Calculated 58-67 Fluid: ml 1446-1687ml Nutritional Problem 2. Problem Problem inadequate oral food intake Etiology N/V x 3 days before adm, no oral food intake Signs/Symptoms: possible poor PO intake before adm and NPO status at this time 1. Problem Problem altered nutrition related lab values Etiology hx of DM Signs/Symptoms: Glucose 229-395, A1C 6.5, POC 165-396 Malnutrition Alert Protein-Calorie Malnutrition N/A Is there a minimum of two criteria No selected? Query Text:Check all the applicable criteria. A minimum of two criteria are recommended for diagnosis of either severe or non-severe malnutrition. Intervention/Recommendation Comments 1. no nutrition plan at this time, monitor NPO status 2. start oral diet if medical appropriate, recommend CCHO 60mg diet d/t DM 3. If intolerance oral diet, will consider nutrition support 4. adjust insullin as needed for optiaml glycemic control 5. F/U as high risk in 2-3 days, 03/29-03/30 Expected Outcomes/Goals Expected Outcomes/Goals 1. pt to meet at least 50% of nutritional needs in 2-3 days 2. wt stability, change toward to IBW 3. labs to improve, skin to remain intact
--- NOTE | 2017-03-29 17:28 | History & Physical ---
ADMIT DATE: 03/28/2017 REFERRING PHYSICIAN: Dr. Davis. REASON FOR CONSULTATION: Abdominal pain and vomiting. Thank you for referring this patient to me. HISTORY OF PRESENT ILLNESS: This is a 31-year-old male with known history of depression, end-stage renal disease, on hemodialysis, seizure disorder and several months ago underwent open cholecystectomy for calculous cholecystitis. The patient has been vomiting apparently for [address] scan showed possible small-bowel obstruction. Small bowel series was ordered and this does not show any obstruction. The patient has been eating and having bowel movements. Abdomen is rather soft, minimal tenderness. RECOMMENDATIONS: The patient may be discharged on liquids and follow up as needed. The mother is a pharmacist and knows when to bring the patient back for any emergency. JOB# [id number]
--- NOTE | 2017-03-29 19:19 | Discharge Summary ---
DATE OF DISCHARGE: ADDENDUM TO THE DISCHARGE SUMMARY The patient's discharge was on hold after the patient was noted to have abnormal CT scan of the abdomen and pelvis with possibility of small-bowel obstruction. General surgery consultation from Dr. No was requested, small bowel series was also done which was inconclusive though the patient did not have any abdominal distention, vomiting and the patient was tolerating p.o. well and had a bowel movement as well. Based on that, it was decided that the patient can be discharged home. I did discuss with the patient's mother and she has agreed to take this patient home. The patient is discharged in stable condition with continuation of same treatment plan as she was receiving at home. [facility]# [id number]
[2017-03-30] MEDS ORDERED: Albumin 25% 12.5gm/50mL 12.5 GM/50 ML BTL IV PRN
== END 2017-03-29 19:10 | disposition home or self-care (01) | DRG 438 ==
LOC: ER 13:47 → TELE 21:35
PROVIDERS: ADMIT Internal Medicine; ATTEND Internal Medicine
PROC: 5A1D70Z Performance of Urinary Filtration, Intermittent, Less than 6 Hours Per Day (ICD-10-PCS; principal; 2017-03-27)
PROC: 5A1D70Z Performance of Urinary Filtration, Intermittent, Less than 6 Hours Per Day (ICD-10-PCS; 2017-03-29)
DX: K85.90 Acute pancreatitis without necrosis or infection, unspecified (principal); N18.6 End stage renal disease; E11.22 Type 2 diabetes mellitus with diabetic chronic kidney disease; E87.2 Acidosis; K31.84 Gastroparesis; E11.65 Type 2 diabetes mellitus with hyperglycemia; E11.43 Type 2 diabetes mellitus with diabetic autonomic (poly)neuropathy; I12.0 Hypertensive chronic kidney disease with stage 5 chronic kidney disease or end stage renal disease; E87.1 Hypo-osmolality and hyponatremia; E87.8 Other disorders of electrolyte and fluid balance, not elsewhere classified; K66.0 Peritoneal adhesions (postprocedural) (postinfection); E86.0 Dehydration; E87.5 Hyperkalemia; D63.1 Anemia in chronic kidney disease; G89.4 Chronic pain syndrome; F32.9 Major depressive disorder, single episode, unspecified; G40.909 Epilepsy, unspecified, not intractable, without status epilepticus; F41.9 Anxiety disorder, unspecified; H91.93 Unspecified hearing loss, bilateral; G31.84 Mild cognitive impairment of uncertain or unknown etiology; F11.90 Opioid use, unspecified, uncomplicated; Z99.2 Dependence on renal dialysis; Z82.49 Family history of ischemic heart disease and other diseases of the circulatory system; Z91.14 Patient's other noncompliance with medication regimen
CPT/HCPCS: 36415-UA; 74000-TC; 74250-TC; 76700-TC; 78226-TC; 80053-TC; 80061-TC; 82010-TC; 82150-TC; 82248-TC; 82948-90; 83036-90; 83690-TC; 85007-TC; 85025-TC; 85027-TC; 85610-TC; 93005; 96374; A9537; J1815; J2405; J7030; J7040; J7042; Q9967; Z7610

== ENCOUNTER 2017-06-22 10:31 | Inpatient (IN) | payer MEDICARE, MEDICAID ==
[2017-06-22] MEDS ORDERED: HYDROmorphone 1 mg/mL 1mL Syr IVP STA (11:37)
--- NOTE | 2017-06-22 11:43 | ED Physician Chart ---
ED Chief Complaint/HPI - Patient Information Date Seen:: 06/22/17 Time Seen:: 11:20 Chief Complaint:: mass right inner thigh History of Present Illness:: Patient's had a painful mass on his right inner thigh for last 1 week. No chills or fever. Allergies:: Allergies Allergy/AdvReac Type Severity Reaction Status Date / Time No Known Allergies Allergy Verified 06/22/17 10:46 Vitals:: Vital Signs - 8 hr 06/22/17 10:40 Temp 99 F HR 120 RR 16 BP 137/84 O2 Sat % 97 Historian:: Patient Review:: Nurse's Note Reviewed ED Review of Systems - Review of Systems General/Constitutional: No fever, No chills Skin: Skin lesions Head: No headache, No light-headedness Eyes: No loss of vision, No pain, No diplopia ENT: No earache Neck: No neck pain Cardio Vascular: No chest pain, No palpitations Pulmonary: No SOB, No cough GI: No nausea, No vomiting, No diarrhea G/U: No dysuria Musculoskeletal: No bone or joint pain, No back pain, No muscle pain Endocrine: No polyuria, No polydipsia Psychiatric: No prior psych history Hematopoietic: No bruising, No lymphadenopathy Allergic/Immuno: No urticaria, No angioedema Neurological: No syncope, No focal symptoms ED Past Medical History - Past Medical History Past Medical History: HTN, DM, Other (on dialysis Monday for last 8 years) Family History: None Social History: Non Smoker, No Alcohol Surgical History: other (dialysis shunt) Psychiatricy History: None Family Medical History - Family Member Mother History Unknown: Yes Ethnicity: Non- Living Status: Still Living Hx Family Cancer: No Hx Family Coronary Artery Disease: No Hx Family Congestive Heart Failure: No Hx Family Hypertension: No Hx Family Stroke: No Hx Family Diabetes: No Hx Family Seizures: No Hx Family Dementia: No Hx Family AIDS: No Hx Family HIV: No Hx Family COPD: No Hx Family Hepatitis: No Hx Family Psychiatric Problems: No Hx Family Tuberculosis: No ED Physical Exam - Physical Examination General/Constitutional: Awake, No distress Other Gen/Cons comments:: Chronically ill-appearing Head: Atraumatic Eyes: Lids, conjuctiva normal Other Skin comments:: Right inner thigh: About 4 cm apparent raised abscess with dark overlying skin surrounded by about 15 cm erythema ED Labs/Radiology/EKG Results - Lab Results Results: Laboratory Results - last 24 hr 06/22/17 06/22/17 11:50 11:50 WBC 9.3 RBC 3.94 L Hgb 11.8 L Hct 34.9 L D MCV 88.7 MCH 30.0 MCHC Differential 33.8 RDW 12.8 Plt Count 194 MPV 6.6 Neutrophils % 77.0 Lymphocytes % 13.3 L Monocytes % 6.9 Eosinophils % 2.5 Basophils % 0.3 Sodium 134 L Potassium 4.9 Chloride 95 L Carbon Dioxide 27.3 Anion Gap 16.6 H BUN 31 H Creatinine 5.8 H* Est GFR ( Amer) 14.6 Est GFR (Non-Af Amer) 12.1 BUN/Creatinine Ratio 5.3 Glucose 120 H Calcium 10.3 ED Assessment - Assessment General Assessment: After patient received Dilaudid 1 mg intravenously he gave permission to have the abscess of the right medial thigh incised and drained. Skin cleansure with Betadine solution was performed. 1% Xylocaine was used for local anesthesia. 3 mm incision made with #15 scalpel. Blood without pus out. Abscess cavity probed gently with a curved hemostat. Irrigated with normal saline. Abscess cavity packed loosely with quarter inch gauze. Absorbent dressing with 4 x 4's. ED Septic Shock - . Is Septic Shock (SBP<90, OR Lactate>4 mmol\L) present?: No - <6hrs of presentation: Vital Signs: Vital Signs - 8 hr 06/22/17 10:40 Temp 99 F HR 120 RR 16 BP 137/84 O2 Sat % 97 ED Reassessment (Disposition) - Reassessment Reassessment:: I talked to Dr. Davis at 1245 and patient be admitted Reassessment Condition:: Improved - Diagnosis Diagnosis:: Abscess right medial thigh, probably MRSA; renal failure on dialysis - Patient Disposition Admitted to:: Med/Surg Spoke to:: Feliciano Davis Admitting Medical Physician:: Feliciano Davis Condition at Disposition:: Stable, Improved
[2017-06-22 11:57] LABS: % BASOPHILS 0.3 % (0.0-2.0); % EOSINOPHILS 2.5 % (0.0-5.0); % LYMPHOCYTES 13.3 % (20.0-50.0); % MONOCYTES 6.9 % (2.0-10.0); EOSINOPHILE ABSOLUTE 0.2 Th/cmm (0.1-0.4); HEMOGLOBIN 11.8 gm/dL (12-16); LYMPHOCYTE ABSOLUTE 1.2 Th/cmm (1.5-3.0); MEAN CELL VOLUME 88.7 fl (80-99); MEAN CORPUSCULAR HGB CONC 33.8 pg (28.0-36.0); MEAN PLATELET VOLUME 6.6 fl; MONOCYTE ABSOLUTE 0.6 Th/cmm (0.3-1.0); NEUTROPHILE ABSOLUTE 7.3 Th/cmm (1.8-8.0); PLATELET COUNT 194 Th/cmm (150-400); RED BLOOD COUNT 3.94 Mil/cmm (4.30-5.70); RED CELL DISTRIBUTION WIDTH 12.8 % (11.5-20.0); WHITE BLOOD COUNT 9.3 Th/cmm (4.8-10.8)
[2017-06-22] MEDS ORDERED: HYDROmorphone 1 mg/mL 1mL Syr ONE ×2 (11:57→14:22)
[2017-06-22 12:03] LABS: HEMATOCRIT 34.9 % (41.0-60)
[2017-06-22 12:14] LABS: ANION GAP 16.6 (7.0-16.0); CALCIUM SERUM 10.3 mg/dL (8.6-10.3); CARBON DIOXIDE 27.3 mEq/L (21.0-31.0); GFR AFRICAN-AMERICAN 14.6 ml/min (>90); GFR NON AFRICAN-AMERICAN 12.1 ml/min; POTASSIUM SERUM 4.9 mEq/L (3.5-5.1)
[2017-06-22 12:25] LABS: CREATININE - SERUM 5.8 mg/dL (0.7-1.3)
[2017-06-22] MEDS ORDERED: HYDROmorphone 1 mg/mL 1mL Syr IVP ONE (14:07)
[2017-06-22] MEDS ORDERED: Pneumococcal Vaccine 0.5 mL Vial IM ONE (16:12)
[2017-06-22] MEDS ORDERED: Acetaminophen 500 MG TAB PO PRN (19:01)
[2017-06-22] MEDS ORDERED: Hydrocodone/APAP 10 mg/325 mg Tab PO PRN (19:49)
[2017-06-22] MEDS: Cefepime 1 GM in Sodium Chloride 0.9% 50 ML IV SCH (22:09)
[2017-06-22] MEDS: Hydrocodone/APAP 10 mg/325 mg Tab PO PRN (22:09)
[2017-06-23] MEDS: Hydrocodone/APAP 10 mg/325 mg Tab PO PRN ×2 (05:00→18:00)
[2017-06-23] MEDS: Hydrocodone/APAP 5mg/325mg Tab PO PRN ×2 (08:48→21:04)
[2017-06-23] MEDS: Vitamin B Complex w/Vitamin C Tab PO SCH (11:59)
[2017-06-23] MEDS: INSULIN ASPART SLIDING SCALE 100 UNITS/ML UNIT SUBQ SCH ×3 (12:45→21:05)
--- NOTE | 2017-06-23 13:18 | History & Physical ---
ADMIT DATE: 06/23/2017 CHIEF COMPLAIN: "Dr. Davis, my right thigh is swollen and painful." HISTORY OF PRESENT ILLNESS: A 31-year-old Vietnamese Thai male with history of chronic renal failure, on hemodialysis, diabetes mellitus, seizure disorder, anxiety, depression, brought himself to the Emergency Room for painful mass on his right inner thigh for 1 week duration. According to the patient and his mother called me stating that he has abscess, which is increasing in its nature. The patient was having significant amount of pain. When the patient was arrived in the Emergency Room, it was noted to have an abscess, which was drained, but subsequently having a significant amount of pain as well as a bloody discharge. The patient was advised to be admitted. PAST MEDICAL HISTORY: Remarkable for: 1. Chronic renal failure, on hemodialysis. 2. Sensorineural hearing loss, currently wearing bilateral hearing aids. 3. Seizure disorder. 4. Anemia of chronic kidney disease. 5. Anxiety, depression. 6. Diabetes mellitus. MEDICATIONS: List has been reviewed and reconciled appropriately. ALLERGIES: The patient is not allergic to medications. SOCIAL HISTORY: The patient lives with his parents. The patient has no smoking cigarette, alcohol, or drug use. FAMILY MEDICAL HISTORY: Remarkable for hypertension and diabetes. REVIEW OF SYSTEMS: The patient is asking for more pain medication because the patient has significant pain, otherwise denies any chest pain, shortness of breath, palpitation, dizziness, nausea, vomiting, diarrhea. Denies any seizure or syncopal episode. PHYSICAL EXAMINATION: GENERAL: Alert, awake, lying in the bed. VITAL SIGNS: Temperature 99, pulse is 100, respiratory rate 16, blood pressure 140/84. HEENT: Normocephalic, atraumatic. Extraocular muscles are intact. Tongue more pink and coated. Multiple acne like lesions on the face noted with palpation. NECK: Supple, no JVD, no hepatojugular reflex. No lymphadenopathy, thyromegaly. HEART: Both heart sounds are regular. No S3, no S4. CHEST: Lung equal in expansion, no wheezing, no crackles. ABDOMEN: Soft. No guarding, no rigidity. Liver and spleen not palpable. No palpable mass. EXTREMITIES: No edema. AV graft on the right upper extremity noted with good bruit. Right inner aspect of the thigh has open wound with bloody discharge noted. No calf tenderness noted. NEUROLOGIC: Alert, awake, follows command. No gross neuro deficit. AVAILABLE DIAGNOSTIC DATA: Performed in the Emergency Room has been reviewed. Total time reviewing the record is approximately 2 minutes. CLINICAL IMPRESSION: 1. Right thigh abscess, status post incision and drainage, still has a purulent discharge and needs to do redo drainage. 2. Diabetes mellitus. 3. Pain at right thigh abscess site. 4. Chronic renal failure, on hemodialysis. 5. Seizure disorder. 6. Anxiety, depression. 7. Anemia of chronic kidney disease. PLAN: 1. Admit this patient to Med/Surg floor. 2. IV antibiotics. 3. Blood cultures. 4. Surgical consult. 5. ID consult. 6. Hemodialysis. 7. Nephrology consult. 8. Appropriate home medicine reconciliation. 9. Seizure medication. 10. Seizure precaution. 11. Follow lab. 12. Follow consult recommendation. 13. Symptoms management. 14. Care plan reviewed and discussed with staff. JOB# [id number]
--- NOTE | 2017-06-23 13:51 | Consultation ---
Consult Note - Consult Note Service Date: 06/23/17 Referring Physician: Feliciano Davis Consult Note: PHYSICIAN Consultation Note: Date of Admission: 06/22/17 Purpose of Consultation: Right thigh abscess. Chief Complaint: Patient YOVANI CAPELLAN was admitted to location Medical/ Surgical Unit I with ABCESS RIGHT INNER THIGH. History of Present Illness:Patient is 21-year-old male with a past medical history of CK distress found him on dialysis, diabetes mellitus type 2, seizure disorder, anxiety, depression, developed painful mass in the right inner thigh. It got worse with time. She came to the ER for further evaluation and management. It was diagnosed to have an abscess. I&D was performed and admitted to the hospital. On initial evaluation, patient's temperature was 99.3 F which went up to 100.5F. Patient's WBC count was 9300. Patient was started on vancomycin and cefepime. Infectious disease consultation was called for antibiotic management. Past Medical History: Allergies Allergy/AdvReac Type Severity Reaction Status Date / Time No Known Allergies Allergy Verified 06/22/17 10:46 Vital Signs Temp 98.8 F 06/23/17 12:02 Pulse 92 06/23/17 12:02 Resp 18 06/23/17 12:02 BP 88/60 06/23/17 12:02 Pulse Ox 96 06/23/17 12:02 Intake & Output 06/22/17 06/23/17 06/23/17 18:59 06:59 18:59 Intake Total 150 Output Total 150 Balance 0 Weight (lbs) 45.132 kg Intake: Intake, IV Amount 50 Cefepime 1 gm In Sodium 50 Chloride 0.9% 50 ml @ 100 mls/hr IV Q24H [facility] Rx#: [id number] Oral 100 Output: Urine 150 Stool 0 Other: # Voids 2 Stool Characteristics Soft Soft Soft Laboratory Results - last 24 hr 06/23/17 06/23/17 04:30 12:43 POC Glucose 72 Random Vancomycin 22.6 Home Medication Medication Instructions Recorded Type Sitagliptin Phosphate [Januvia] 25 mg PO DAILY 12/10/16 History Levetiracetam [Keppra] 500 mg PO BID tab 02/24/17 Rx Sodium Bicarbonate 1 gm PO DAILY 03/26/17 History Venlafaxine HCl [Effexor Xr] 37.5 mg PO DAILY 03/26/17 History Vit B Cmplx 3/FA/Vit C/Biotin 1 tab PO DAILY 03/26/17 History [Lavonne-Yazan Rx Tablet] Insulin Aspart Sliding Scale See Protocol SUBQ ACHS unit 03/29/17 Rx [NovoLOG INSULIN SLIDING SCALE] Current Medications Generic Name Dose Route Start Last Admin Trade Name Freq PRN Reason Stop Dose Admin Acetaminophen 500 mg 06/22/17 19:01 Tylenol Extra Strength PO 08/21/17 19:00 Q6H PRN Fever > 101 Acetaminophen/Hydrocodone Bitart 1 tab 06/22/17 15:22 06/23/17 08:48 [place] 5mg/325mg PO 08/21/17 15:21 1 tab Q6H PRN Administration Pain (Moderate) Acetaminophen/Hydrocodone Bitart 1 tab 06/22/17 19:55 06/23/17 05:00 Bre[place] 10 Mg/325 Mg PO 08/21/17 19:48 1 tab Q6H PRN Administration Severe Pain Cefepime HCl 1 gm/ Sodium 50 mls @ 100 mls/hr 06/22/17 19:15 06/22/17 22:57 Chloride IV 08/21/17 19:14 Infused Q24H RADHA Infusion Vancomycin HCl 1 gm/ Sodium 250 mls @ 165 mls/hr 06/23/17 21:00 Chloride IV 06/23/17 22:30 ONCE ONE Insulin Aspart 0 units 06/23/17 11:30 06/23/17 12:45 Novolog Insulin Sliding Scale SUBQ 08/22/17 11:29 Not Given ACHS RADHA Protocol Levetiracetam 500 mg 06/22/17 21:30 06/23/17 08:43 Keppra PO 08/21/17 21:29 500 mg BID RADHA Administration Miscellaneous 1 ea 06/22/17 15:22 Vancomycin Iv Per Pharmacy 08/21/17 15:21 PRN PRN PROTOCOL Sitagliptin Phosphate 25 mg 06/23/17 09:00 06/23/17 11:59 Januvia PO 08/22/17 08:59 Not Given DAILY RADHA Sodium Bicarbonate 650 mg 06/23/17 09:00 06/23/17 11:59 Sodium Bicarbonate PO 08/22/17 08:59 650 mg DAILY RADHA Administration Venlafaxine HCl 37.5 mg 06/23/17 09:00 Effexor Xr PO 08/22/17 08:59 DAILY RADHA Vitamin B Complex/Vit C/Folic Acid 1 tab 06/23/17 09:00 06/23/17 11:59 Vitamin B Complex W/Vitamin C PO 08/22/17 08:59 1 tab DAILY RADHA Administration Review of Systems: A 12 point ROS was reviewed with the pertinent positive and negatives noted in the HPI. Social History Smoking Status Never smoker Drug Use No Alcohol Use No Family Medical History Family Medical History Start: 06/22/17 14: 47 Freq: ONCE Status: Active Document 06/22/17 16:53 GUILLERMO (Rec: 06/22/17 16:54 [facility] [id number] ) Family Medical History Mother History Unknown Yes Ethnicity Non- Living Status Still Living Hx Family Cancer No Hx Family Coronary Artery Disease No Hx Family Congestive Heart Failure No Hx Family Hypertension Yes Hx Family Stroke No Hx Family Diabetes Yes Hx Family Seizures No Hx Family Dementia No Hx Family AIDS No Hx Family HIV No Hx Family COPD No Hx Family Hepatitis No Hx Family Psychiatric Problems No Hx Family Tuberculosis No Physical Exam: General: Well-nourished well-developed. Not in acute distress. HEENT: Head: Normocephalic, atraumatic. Oral cavity: moist pink tongue. Eyes: Pupil PERRLA. EOMI. Face: Multiple evacuations. Neck: Soft, nontender, nondistended bowel sounds present. Cardio: S1 and S2 within normal with regular rhythm. Respiratory: Vesicular breath sound. Abdominal: Soft, nontender, nondistended bowel sounds present. Genital/Urinary: Extremities: No cyanosis, no clubbing, no edema. AV graft in the right approximately with good bruit and thrill. Right thigh: Open wound the bloody discharge and packing. Neurological: Alert and awake. Assessment: 1. Fever. 2. Right thigh abscess. 3. CK D stage V on hemodialysis. 4. Diabetes mellitus type 2. Plan: Continue same treatment. Thank you, Dr. Davis, for involving me in taking care of this patient. Benny, Eric Shetty M.D. [id number]
--- NOTE | 2017-06-23 14:11 | Consultation ---
Consult Note - Consult Note Service Date: 06/23/17 Consult Note: PHYSICIAN Consultation Note: Date of Admission: 06/22/17 Purpose of Consultation: ESRD Chief Complaint: History of Present Illness: Patient YOVANI CAPELLAN was admitted to location Medical/Surgical Unit I with ABCESS RIGHT INNER THIGH. Patient is 21-year-old male with a past medical history of ESRD on dialysis, diabetes mellitus type 2, seizure disorder, anxiety, depression, developed painful mass in the right inner thigh. It got worse with time. He came to the ER for further evaluation and management. It was diagnosed to have an abscess. I&D was performed and admitted to the hospital. On initial evaluation, patient's temperature was 99.3F which went up to 100.5F. Patient's WBC count was 9300. Patient was started on vancomycin and cefepime. Past Medical History: ESRD on dialysis, diabetes mellitus type 2, seizure disorder, anxiety, depression Allergies Allergy/AdvReac Type Severity Reaction Status Date / Time No Known Allergies Allergy Verified 06/22/17 10:46 Vital Signs Temp 98.8 F 06/23/17 12:02 Pulse 92 06/23/17 12:02 Resp 18 06/23/17 12:02 BP 88/60 06/23/17 12:02 Pulse Ox 96 06/23/17 12:02 Intake & Output 06/22/17 06/23/17 06/23/17 18:59 06:59 18:59 Intake Total 150 Output Total 150 Balance 0 Weight (lbs) 45.132 kg Intake: Intake, IV Amount 50 Cefepime 1 gm In Sodium 50 Chloride 0.9% 50 ml @ 100 mls/hr IV Q24H [facility] Rx#: [id number] Oral 100 Output: Urine 150 Stool 0 Other: # Voids 2 Stool Characteristics Soft Soft Soft Laboratory Results - last 24 hr 06/23/17 06/23/17 04:30 12:43 POC Glucose 72 Random Vancomycin 22.6 Home Medication Medication Instructions Recorded Type Sitagliptin Phosphate [Januvia] 25 mg PO DAILY 12/10/16 History Levetiracetam [Keppra] 500 mg PO BID tab 02/24/17 Rx Sodium Bicarbonate 1 gm PO DAILY 03/26/17 History Venlafaxine HCl [Effexor Xr] 37.5 mg PO DAILY 03/26/17 History Vit B Cmplx 3/FA/Vit C/Biotin 1 tab PO DAILY 03/26/17 History [Lavonne-Yazan Rx Tablet] Insulin Aspart Sliding Scale See Protocol SUBQ ACHS unit 03/29/17 Rx [NovoLOG INSULIN SLIDING SCALE] Current Medications Generic Name Dose Route Start Last Admin Trade Name Freq PRN Reason Stop Dose Admin Acetaminophen 500 mg 06/22/17 19:01 Tylenol Extra Strength PO 08/21/17 19:00 Q6H PRN Fever > 101 Acetaminophen/Hydrocodone Bitart 1 tab 06/22/17 15:22 06/23/17 08:48 [place] 5mg/325mg PO 08/21/17 15:21 1 tab Q6H PRN Administration Pain (Moderate) Acetaminophen/Hydrocodone Bitart 1 tab 06/22/17 19:55 06/23/17 05:00 [place] 10 Mg/325 Mg PO 08/21/17 19:48 1 tab Q6H PRN Administration Severe Pain Cefepime HCl 1 gm/ Sodium 50 mls @ 100 mls/hr 06/22/17 19:15 06/22/17 22:57 Chloride IV 08/21/17 19:14 Infused Q24H RADHA Infusion Vancomycin HCl 1 gm/ Sodium 250 mls @ 165 mls/hr 06/23/17 21:00 Chloride IV 06/23/17 22:30 ONCE ONE Insulin Aspart 0 units 06/23/17 11:30 06/23/17 12:45 Novolog Insulin Sliding Scale SUBQ 08/22/17 11:29 Not Given ACHS RADHA Protocol Levetiracetam 500 mg 06/22/17 21:30 06/23/17 08:43 Keppra PO 08/21/17 21:29 500 mg BID RADHA Administration Miscellaneous 1 ea 06/22/17 15:22 Vancomycin Iv Per Pharmacy 08/21/17 15:21 PRN PRN PROTOCOL Sitagliptin Phosphate 25 mg 06/23/17 09:00 06/23/17 11:59 Januvia PO 08/22/17 08:59 Not Given DAILY RADHA Sodium Bicarbonate 650 mg 06/23/17 09:00 06/23/17 11:59 Sodium Bicarbonate PO 08/22/17 08:59 650 mg DAILY RADHA Administration Venlafaxine HCl 37.5 mg 06/23/17 09:00 Effexor Xr PO 08/22/17 08:59 DAILY RADHA Vitamin B Complex/Vit C/Folic Acid 1 tab 06/23/17 09:00 06/23/17 11:59 Vitamin B Complex W/Vitamin C PO 08/22/17 08:59 1 tab DAILY RADHA Administration Review of Systems: A 12 point ROS was reviewed with the pertinent positive and negatives noted in the HPI. Social History Smoking Status Never smoker Drug Use No Alcohol Use No Family Medical History Family Medical History Start: 06/22/17 14: 47 Freq: ONCE Status: Active Document 06/22/17 16:53 GUILLERMO (Rec: 06/22/17 16:54 GUILLERMO [id number] ) Family Medical History Mother History Unknown Yes Ethnicity Non- Living Status Still Living Hx Family Cancer No Hx Family Coronary Artery Disease No Hx Family Congestive Heart Failure No Hx Family Hypertension Yes Hx Family Stroke No Hx Family Diabetes Yes Hx Family Seizures No Hx Family Dementia No Hx Family AIDS No Hx Family HIV No Hx Family COPD No Hx Family Hepatitis No Hx Family Psychiatric Problems No Hx Family Tuberculosis No Physical Exam: General: Well-nourished well-developed. Not in acute distress. HEENT: Head: Normocephalic, atraumatic. Oral cavity: moist pink tongue. Eyes: Pupil PERRLA. EOMI. Face: Multiple evacuations. Neck: Soft, nontender, nondistended bowel sounds present. Cardio: S1 and S2 within normal with regular rhythm. Respiratory: Vesicular breath sound. Abdominal: Soft, nontender, nondistended bowel sounds present. Genital/Urinary: Extremities: No cyanosis, no clubbing, no edema. AV graft in the right approximately with good bruit and thrill. Right thigh: Open wound the bloody discharge Neurological: Alert and awake. Assessment: 1. Fever. 2. Right thigh abscess. 3. CK D stage V on hemodialysis. 4. Diabetes mellitus type 2. 5. ESRD 6. HTN 7. Amemia Plan: start patient on iv abx will continue HD support Dm and HTN medications Continue same treatment. Thank you, Dr. Davis, for involving me in taking care of this patient. Signed, [place] SCRUGGS
--- NOTE | 2017-06-23 15:46 | General Progress Note ---
Subjective - Review of Systems Service Date: 06/23/17 Events since last encounter: swelling right thigh for 1 week, looks like a hematoma, no history of trauma, might need evacuation has iinfection right eyebrow - furuncle on Vanco Objective - Results Result Diagrams: 06/22/17 11:50 06/22/17 11:50 Recent Labs: Laboratory Last Values WBC 9.3 Th/cmm (4.8-10.8) 06/22/17 11:50 RBC 3.94 Mil/cmm (4.30-5.70) L 06/22/17 11:50 Hgb 11.8 gm/dL (12-16) L 06/22/17 11:50 Hct 34.9 % (41.0-60) L D 06/22/17 11:50 MCV 88.7 fl (80-99) 06/22/17 11:50 MCH 30.0 pg (26.0-30.0) 06/22/17 11:50 MCHC Differential 33.8 pg (28.0-36.0) 06/22/17 11:50 RDW 12.8 % (11.5-20.0) 06/22/17 11:50 Plt Count 194 Th/cmm (150-400) 06/22/17 11:50 MPV 6.6 fl 06/22/17 11:50 Neutrophils % 77.0 % (40.0-80.0) 06/22/17 11:50 Lymphocytes % 13.3 % (20.0-50.0) L 06/22/17 11:50 Monocytes % 6.9 % (2.0-10.0) 06/22/17 11:50 Eosinophils % 2.5 % (0.0-5.0) 06/22/17 11:50 Basophils % 0.3 % (0.0-2.0) 06/22/17 11:50 Sodium 134 mEq/L (136-145) L 06/22/17 11:50 Potassium 4.9 mEq/L (3.5-5.1) 06/22/17 11:50 Chloride 95 mEq/L (98-107) L 06/22/17 11:50 Carbon Dioxide 27.3 mEq/L (21.0-31.0) 06/22/17 11:50 Anion Gap 16.6 (7.0-16.0) H 06/22/17 11:50 BUN 31 mg/dL (7-25) H 06/22/17 11:50 Creatinine 5.8 mg/dL (0.7-1.3) H* 06/22/17 11:50 Est GFR ( Amer) 14.6 ml/min (>90) 06/22/17 11:50 Est GFR (Non-Af Amer) 12.1 ml/min 06/22/17 11:50 BUN/Creatinine Ratio 5.3 06/22/17 11:50 Glucose 120 mg/dL (70-105) H 06/22/17 11:50 POC Glucose 72 MG/DL (70 - 105) 06/23/17 12:43 Calcium 10.3 mg/dL (8.6-10.3) 06/22/17 11:50 Random Vancomycin 22.6 ug/mL (5.0-40.0) 06/23/17 04:30 - Physical Exam Vitals and I&O: Vital Signs Temp 98.0 F 06/23/17 15:36 Pulse 101 06/23/17 15:36 Resp 17 06/23/17 15:36 BP 88/54 06/23/17 15:36 Pulse Ox 97 06/23/17 15:36 Intake & Output 06/22/17 06/23/17 06/23/17 18:59 06:59 18:59 Intake Total 150 Output Total 150 Balance 0 Weight (lbs) 45.132 kg Intake: Intake, IV Amount 50 Cefepime 1 gm In Sodium 50 Chloride 0.9% 50 ml @ 100 mls/hr IV Q24H [facility] Rx#: [id number] Oral 100 Output: Urine 150 Stool 0 Other: # Voids 2 Stool Characteristics Soft Soft Soft Active Medications: Current Medications Acetaminophen (Tylenol Extra Strength) 500 mg PO Q6H PRN PRN Reason: Fever > 101 Stop: 08/21/17 19:00 Acetaminophen/Hydrocodone Bitart ([place] 5mg/325mg) 1 tab PO Q6H PRN PRN Reason: Pain (Moderate) Stop: 08/21/17 15:21 Last Admin: 06/23/17 08:48 Dose: 1 tab Acetaminophen/Hydrocodone Bitart ([place] 10 Mg/325 Mg) 1 tab PO Q6H PRN PRN Reason: Severe Pain Stop: 08/21/17 19:48 Last Admin: 06/23/17 05:00 Dose: 1 tab Cefepime HCl 1 gm/ Sodium (Chloride) 50 mls @ 100 mls/hr IV Q24H [facility] Stop: 08/21/17 19:14 Last Infusion: 06/22/17 22:57 Dose: Infused Vancomycin HCl 1 gm/ Dextrose 250 mls @ 165 mls/hr IV ONCE ONE Stop: 06/23/17 22:30 Insulin Aspart (Novolog Insulin Sliding Scale) 0 units SUBQ ACHS RADHA PRN Reason: Protocol Stop: 08/22/17 11:29 Last Admin: 06/23/17 12:45 Dose: Not Given Levetiracetam (Keppra) 500 mg PO BID [facility] Stop: 08/21/17 21:29 Last Admin: 06/23/17 08:43 Dose: 500 mg Miscellaneous (Vancomycin Iv Per Pharmacy) 1 ea [facility] PRN PRN PRN Reason: PROTOCOL Stop: 08/21/17 15:21 Sitagliptin Phosphate (Januvia) 25 mg PO DAILY RADHA Stop: 08/22/17 08:59 Last Admin: 06/23/17 11:59 Dose: Not Given Sodium Bicarbonate (Sodium Bicarbonate) 650 mg PO DAILY RADHA Stop: 08/22/17 08:59 Last Admin: 06/23/17 11:59 Dose: 650 mg Venlafaxine HCl (Effexor Xr) 37.5 mg PO DAILY [facility] Stop: 08/22/17 08:59 Vitamin B Complex/Vit C/Folic Acid (Vitamin B Complex W/Vitamin C) 1 tab PO DAILY RADHA Stop: 08/22/17 08:59 Last Admin: 06/23/17 11:59 Dose: 1 tab - Procedures Procedures: Procedures Procedure Code Date ABDOMEN SURGERY PROCEDURE 94073 10/21/16 BLOOD TRANSFUSION SERVICE 12285 03/20/17 CONTROL BLEEDING IN GASTROINTESTINAL TRACT, ENDO [id number] 12/11/16 DILATION OF COMMON BILE DUCT WITH INTRALUMINAL DEVICE, ENDO [id number] 12/11/16 DRAINAGE OF RIGHT UPPER LEG, OPEN APPROACH [id number] 06/22/17 DRAINAGE OF SKIN ABSCESS 07686 06/22/17 EGD BIOPSY SINGLE/MULTIPLE 99971 02/20/16 EGD CONTROL BLEEDING ANY 68710 12/11/16 ENDO CHOLANGIOPANCREATOGRAPH 95955 12/11/16 EXCISION OF DUODENUM, ENDO, DIAGN [id number] 02/20/16 EXCISION OF STOMACH, PYLORUS, ENDO, DIAGN [id number] 02/20/16 EXTIRPATION OF MATTER FROM COMMON BILE DUCT, ENDO [id number] 12/11/16 INTRODUCTION OF OTHER THERAPEUTIC SUBSTANCE INTO UP GI, ENDO 4Z2A4CM 12/11/16 INTRODUCTION OF SERUM/TOX/VACCINE INTO MUSCLE, PERC APPROACH [id number] 11/05/16 PERFORMANCE OF URINARY FILTRATION, <6 HRS/DAY 5L8X45H 03/26/17 PERFORMANCE OF URINARY FILTRATION, MULTIPLE 3X3G42Q 12/11/16 PERFORMANCE OF URINARY FILTRATION, SINGLE 5M9X98E 11/05/16 RELEASE GREATER OMENTUM, OPEN APPROACH [id number] 10/21/16 RELEASE LIVER, OPEN APPROACH [id number] 10/21/16 REMOVAL OF GALLBLADDER 22389 10/21/16 RESECTION OF GALLBLADDER, OPEN APPROACH [id number] 10/21/16 TRANSFUSE NONAUT FRESH PLASMA IN PERIPH VEIN, PERC 35975M7 12/11/16 TRANSFUSE NONAUT FROZEN PLASMA IN PERIPH VEIN, PERC 66215D6 12/11/16 TRANSFUSE NONAUT PLATELETS IN PERIPH VEIN, PERC 11822H4 12/11/16 TRANSFUSE NONAUT RED BLOOD CELLS IN PERIPH VEIN, PERC 20794L0 03/20/17 UPPR GI SCOPE W/SUBMUC INJ 71063 12/11/16
[2017-06-23] MEDS: Cefepime 1 GM in Sodium Chloride 0.9% 50 ML IV SCH (21:04)
[2017-06-24 05:22] LABS: % BASOPHILS 0.2 % (0.0-2.0); % EOSINOPHILS 3.7 % (0.0-5.0); % LYMPHOCYTES 16.1 % (20.0-50.0); % MONOCYTES 7.7 % (2.0-10.0); % NEUTROPHILS 72.3 % (40.0-80.0); EOSINOPHILE ABSOLUTE 0.4 Th/cmm (0.1-0.4); HEMOGLOBIN 10.6 gm/dL (12-16); LYMPHOCYTE ABSOLUTE 1.6 Th/cmm (1.5-3.0); MEAN CELL VOLUME 87.3 fl (80-99); MEAN CORPUSCULAR HGB CONC 34.3 pg (28.0-36.0); MEAN PLATELET VOLUME 7.1 fl; MONOCYTE ABSOLUTE 0.8 Th/cmm (0.3-1.0); NEUTROPHILE ABSOLUTE 7.2 Th/cmm (1.8-8.0); PLATELET COUNT 174 Th/cmm (150-400); RED BLOOD COUNT 3.53 Mil/cmm (4.30-5.70); RED CELL DISTRIBUTION WIDTH 12.7 % (11.5-20.0)
[2017-06-24 05:46] LABS: ALB/GLOB RATIO 0.9 (1.0-1.8); ALBUMIN 3.2 gm/dL (4.2-5.5); ANION GAP 12.7 (7.0-16.0); BILIRUBIN,TOTAL 0.7 mg/dL (0.3-1.0); CALCIUM SERUM 9.7 mg/dL (8.6-10.3); CARBON DIOXIDE 23.1 mEq/L (21.0-31.0); GFR AFRICAN-AMERICAN 18.2 ml/min (>90); GFR NON AFRICAN-AMERICAN 15.1 ml/min; POTASSIUM SERUM 3.8 mEq/L (3.5-5.1); TOTAL PROTEIN,SERUM 6.6 gm/dL (6.0-8.3)
[2017-06-24 05:49] LABS: CREATININE - SERUM 4.8 mg/dL (0.7-1.3)
[2017-06-24] MEDS: Hydrocodone/APAP 10 mg/325 mg Tab PO PRN ×2 (05:50→14:53)
[2017-06-24 06:26] LABS: HEMATOCRIT 30.8 % (41.0-60)
[2017-06-24] MEDS ORDERED: Dextrose 50% 50 mL Abboject IVP ONE (06:30)
[2017-06-24] MEDS: INSULIN ASPART SLIDING SCALE 100 UNITS/ML UNIT SUBQ SCH ×4 (09:16→20:08)
[2017-06-24] MEDS: Vitamin B Complex w/Vitamin C Tab PO SCH (09:18)
[2017-06-24 14:14] LABS: HEP A AB IGM Negative (Negative); HEP B CORE IGM Negative (Negative); HEP B SURFACE AG QL Negative (Negative); HEP C ANTIBODY <0.1 s/co ratio (0.0-0.9)
[2017-06-24] MEDS: Cefepime 1 GM in Sodium Chloride 0.9% 50 ML IV SCH (18:34)
[2017-06-24] MEDS: Hydrocodone/APAP 5mg/325mg Tab PO PRN (20:14)
--- NOTE | 2017-06-24 21:38 | Progress Notes ---
DATE: 06/24/2017 SUBJECTIVE: The patient seen and examined. The patient is lying in the bed. The patient is asking for pain medication though the patient looks very comfortable. The patient is seen by a surgeon as well as Infectious Disease as well as char belt operator. The patient is currently placed on IV antibiotic. The patient is remaining hemodynamically stable. The patient has a very poor p.o. intake. PHYSICAL EXAMINATION: On today's exam, VITAL SIGNS: Temperature 97.2, pulse 98, respiratory rate 18, blood pressure 109/66. HEENT: Normocephalic, atraumatic. Extraocular muscles are intact. Tongue was pink and coated. Poor dentition noted. NECK: Supple. No JVD, lymphadenopathy, thyromegaly or carotid bruit. HEART: Both heart sounds are regular. No S3. No S4. CHEST AND LUNG: Equal in expansion, no wheezing, no crackles. ABDOMEN: Soft. No guarding or rigidity. EXTREMITIES: Remarkable for intact dressing in the right medial aspect of the right lower extremity noted. AV graft on the right upper extremity noted with good bruit. NEUROLOGIC: Otherwise, nonfocal. LABORATORY DATA: Has been reviewed. CLINICAL IMPRESSION: 1. Right thigh abscess, status post incision and drainage. 2. Stage V kidney disease on hemodialysis. 3. Diabetes mellitus. 4. Seizure disorder. 5. Chronic pain. 6. History of sensorineural hearing loss. PLAN: The patient admitted to Med/Surg floor at this time. Continue antibiotic. Wound care, General Surgery and ID, follow up hemodialysis as per char belt operator. Glucoscan and diabetes management. Continue seizure medication and seizure precautions. Follow up on lab and follow up on consult and recommendations. Care plan reviewed and discussed with staff. JOB# [id number]
[2017-06-25 04:55] LABS: % BASOPHILS 0.6 % (0.0-2.0); % EOSINOPHILS 4.1 % (0.0-5.0); % MONOCYTES 5.4 % (2.0-10.0); % NEUTROPHILS 70.9 % (40.0-80.0); BASOPHILE ABSOLUTE 0.1 Th/cumm (0-0.2); EOSINOPHILE ABSOLUTE 0.3 Th/cmm (0.1-0.4); HEMATOCRIT 30.2 % (41.0-60); HEMOGLOBIN 10.3 gm/dL (12-16); LYMPHOCYTE ABSOLUTE 1.6 Th/cmm (1.5-3.0); MEAN CELL VOLUME 87.8 fl (80-99); MEAN CORPUSCULAR HEMOGLOBIN 29.8 pg (26.0-30.0); MEAN PLATELET VOLUME 7.2 fl; MONOCYTE ABSOLUTE 0.5 Th/cmm (0.3-1.0); NEUTROPHILE ABSOLUTE 5.9 Th/cmm (1.8-8.0); PLATELET COUNT 157 Th/cmm (150-400); RED BLOOD COUNT 3.44 Mil/cmm (4.30-5.70); RED CELL DISTRIBUTION WIDTH 12.5 % (11.5-20.0); WHITE BLOOD COUNT 8.4 Th/cmm (4.8-10.8)
[2017-06-25 05:13] LABS: ALBUMIN 3.1 gm/dL (4.2-5.5); ANION GAP 16.9 (7.0-16.0); BILIRUBIN,TOTAL 0.5 mg/dL (0.3-1.0); CALCIUM SERUM 9.5 mg/dL (8.6-10.3); CARBON DIOXIDE 19.3 mEq/L (21.0-31.0); GFR AFRICAN-AMERICAN 12.6 ml/min (>90); GFR NON AFRICAN-AMERICAN 10.4 ml/min; POTASSIUM SERUM 4.2 mEq/L (3.5-5.1); TOTAL PROTEIN,SERUM 6.3 gm/dL (6.0-8.3)
[2017-06-25 05:16] LABS: CREATININE - SERUM 6.6 mg/dL (0.7-1.3)
[2017-06-25] MEDS: INSULIN ASPART SLIDING SCALE 100 UNITS/ML UNIT SUBQ SCH ×4 (07:29→20:48)
[2017-06-25] MEDS: Vitamin B Complex w/Vitamin C Tab PO SCH (08:08)
[2017-06-25] MEDS: Hydrocodone/APAP 10 mg/325 mg Tab PO PRN ×2 (13:21→20:59)
--- NOTE | 2017-06-25 17:44 | Infectious Disease Prog Note ---
Infectious Disease Subjective - Review of Systems Service Date: 06/25/17 Subjective: No new change, no fever. Infectious Disease Objective - Results Result Diagrams: 06/25/17 04:30 06/25/17 04:30 Recent Labs: Laboratory Last Values WBC 8.4 Th/cmm (4.8-10.8) 06/25/17 04:30 RBC 3.44 Mil/cmm (4.30-5.70) L 06/25/17 04:30 Hgb 10.3 gm/dL (12-16) L 06/25/17 04:30 Hct 30.2 % (41.0-60) L 06/25/17 04:30 MCV 87.8 fl (80-99) 06/25/17 04:30 MCH 29.8 pg (26.0-30.0) 06/25/17 04:30 MCHC Differential 34.0 pg (28.0-36.0) 06/25/17 04:30 RDW 12.5 % (11.5-20.0) 06/25/17 04:30 Plt Count 157 Th/cmm (150-400) 06/25/17 04:30 MPV 7.2 fl 06/25/17 04:30 Neutrophils % 70.9 % (40.0-80.0) 06/25/17 04:30 Lymphocytes % 19.0 % (20.0-50.0) L 06/25/17 04:30 Monocytes % 5.4 % (2.0-10.0) 06/25/17 04:30 Eosinophils % 4.1 % (0.0-5.0) 06/25/17 04:30 Basophils % 0.6 % (0.0-2.0) 06/25/17 04:30 PTT (Actin FS) 25.5 SECONDS (26.0-38.0) L 06/25/17 12:58 Sodium 135 mEq/L (136-145) L 06/25/17 04:30 Potassium 4.2 mEq/L (3.5-5.1) 06/25/17 04:30 Chloride 103 mEq/L (98-107) 06/25/17 04:30 Carbon Dioxide 19.3 mEq/L (21.0-31.0) L 06/25/17 04:30 Anion Gap 16.9 (7.0-16.0) H 06/25/17 04:30 BUN 35 mg/dL (7-25) H 06/25/17 04:30 Creatinine 6.6 mg/dL (0.7-1.3) H* 06/25/17 04:30 Est GFR ( Amer) 12.6 ml/min (>90) 06/25/17 04:30 Est GFR (Non-Af Amer) 10.4 ml/min 06/25/17 04:30 BUN/Creatinine Ratio 5.3 06/25/17 04:30 Glucose 90 mg/dL (70-105) 06/25/17 04:30 POC Glucose 82 MG/DL (70 - 105) 06/25/17 11:08 Calcium 9.5 mg/dL (8.6-10.3) 06/25/17 04:30 Total Bilirubin 0.5 mg/dL (0.3-1.0) 06/25/17 04:30 AST 37 U/L (13-39) 06/25/17 04:30 ALT 54 U/L (7-52) H 06/25/17 04:30 Alkaline Phosphatase 291 U/L (34-104) H 06/25/17 04:30 Total Protein 6.3 gm/dL (6.0-8.3) 06/25/17 04:30 Albumin 3.1 gm/dL (4.2-5.5) L 06/25/17 04:30 Globulin 3.2 gm/dL 06/25/17 04:30 Albumin/Globulin Ratio 1.0 (1.0-1.8) 06/25/17 04:30 Random Vancomycin 37.0 ug/mL (5.0-40.0) 06/25/17 04:30 Hepatitis A IgM Ab Negative (Negative) 06/23/17 04:30 Hep Bs Antigen Negative (Negative) 06/23/17 04:30 Hep B Core IgM Ab Negative (Negative) 06/23/17 04:30 Hepatitis C Antibody <0.1 s/co ratio (0.0-0.9) 06/23/17 04:30 - Physical Exam Vitals and I&O: Vital Signs Temp 97.4 F 06/25/17 16:00 Pulse 106 06/25/17 16:00 Resp 18 06/25/17 16:00 BP 90/53 06/25/17 16:00 Pulse Ox 100 06/25/17 16:00 Intake & Output 06/24/17 06/25/17 06/25/17 18:59 06:59 18:59 Intake Total 632 99 0547 Balance 135 89 0248 Weight (lbs) 46.584 kg 46.176 kg 46.176 kg Intake: Intake, IV Amount 50 Cefepime 1 gm In Sodium 50 Chloride 0.9% 50 ml @ 100 mls/hr IV Q24H [facility] Rx#: [id number] Oral 600 1000 Other: # Voids 1 2 # Bowel Movements 0 0 1 Stool Characteristics Soft Soft Soft Active Medications: Current Medications Acetaminophen (Tylenol Extra Strength) 500 mg PO Q6H PRN PRN Reason: Fever > 101 Stop: 08/21/17 19:00 Acetaminophen/Hydrocodone Bitart ([place] 5mg/325mg) 1 tab PO Q6H PRN PRN Reason: Pain (Moderate) Stop: 08/21/17 15:21 Last Admin: 06/24/17 20:14 Dose: 1 tab Acetaminophen/Hydrocodone Bitart ([place] 10 Mg/325 Mg) 1 tab PO Q6H PRN PRN Reason: Severe Pain Stop: 08/21/17 19:48 Last Admin: 06/25/17 13:21 Dose: 1 tab Cefepime HCl 1 gm/ Sodium (Chloride) 50 mls @ 100 mls/hr IV Q24H [facility] Stop: 08/21/17 19:14 Last Infusion: 06/24/17 19:48 Dose: Infused Dextrose/Sodium Chloride (D5-0.45ns) 1,000 mls @ 50 mls/hr IV .Q20H ONE Stop: 06/26/17 18:59 Insulin Aspart (Novolog Insulin Sliding Scale) 0 units SUBQ ACHS RADHA PRN Reason: Protocol Stop: 08/22/17 11:29 Last Admin: 06/25/17 11:11 Dose: Not Given Levetiracetam (Keppra) 500 mg PO BID [facility] Stop: 08/21/17 21:29 Last Admin: 06/25/17 16:24 Dose: 500 mg Miscellaneous (Vancomycin Iv Per Pharmacy) 1 ea MC PRN PRN PRN Reason: PROTOCOL Stop: 08/21/17 15:21 Sitagliptin Phosphate (Januvia) 25 mg PO DAILY [facility] Stop: 08/22/17 08:59 Last Admin: 06/25/17 08:08 Dose: 25 mg Sodium Bicarbonate (Sodium Bicarbonate) 650 mg PO DAILY [facility] Stop: 08/22/17 08:59 Last Admin: 06/25/17 08:08 Dose: 650 mg Venlafaxine HCl (Effexor Xr) 37.5 mg PO DAILY [facility] Stop: 08/22/17 08:59 Vitamin B Complex/Vit C/Folic Acid (Vitamin B Complex W/Vitamin C) 1 tab PO DAILY [facility] Stop: 08/22/17 08:59 Last Admin: 06/25/17 08:08 Dose: 1 tab General: no acute distress, well developed, well nourished HEENT: atraumatic, normocephalic, PERRLA, EOMI, moist mucous membrane Neck: supple, no thyromegaly Cardiovascular: S1S2, regular Lungs: clear to auscultation bilaterally, clear to percussion Abdomen: soft, no tender, no distended, no mass, no rebound, no hepatomegaly, no splenomegaly Extremities: no cyanosis, no clubbing, no edema Neurological: awake, alert, oriented Skin: intact, no rash, no subcutaneous nodules - Procedures Procedures: Procedures Procedure Code Date ABDOMEN SURGERY PROCEDURE 26731 10/21/16 BLOOD TRANSFUSION SERVICE 96482 03/20/17 CONTROL BLEEDING IN GASTROINTESTINAL TRACT, ENDO [id number] 12/11/16 DILATION OF COMMON BILE DUCT WITH INTRALUMINAL DEVICE, ENDO [id number] 12/11/16 DRAINAGE OF RIGHT UPPER LEG, OPEN APPROACH 2Z5D5IV 06/22/17 DRAINAGE OF SKIN ABSCESS 42058 06/22/17 EGD BIOPSY SINGLE/MULTIPLE 28239 02/20/16 EGD CONTROL BLEEDING ANY 38829 12/11/16 ENDO CHOLANGIOPANCREATOGRAPH 06029 12/11/16 EXCISION OF DUODENUM, ENDO, DIAGN [id number] 02/20/16 EXCISION OF STOMACH, PYLORUS, ENDO, DIAGN [id number] 02/20/16 EXTIRPATION OF MATTER FROM COMMON BILE DUCT, ENDO [id number] 12/11/16 INTRODUCTION OF OTHER THERAPEUTIC SUBSTANCE INTO UP GI, ENDO 5M9N2IO 12/11/16 INTRODUCTION OF SERUM/TOX/VACCINE INTO MUSCLE, PERC APPROACH [id number] 11/05/16 PERFORMANCE OF URINARY FILTRATION, <6 HRS/DAY 3C5I54O 03/26/17 PERFORMANCE OF URINARY FILTRATION, MULTIPLE 0U9H46V 12/11/16 PERFORMANCE OF URINARY FILTRATION, SINGLE 5P5X41O 11/05/16 RELEASE GREATER OMENTUM, OPEN APPROACH 0DWX3ER 10/21/16 RELEASE LIVER, OPEN APPROACH [id number] 10/21/16 REMOVAL OF GALLBLADDER 93732 10/21/16 RESECTION OF GALLBLADDER, OPEN APPROACH [id number] 10/21/16 TRANSFUSE NONAUT FRESH PLASMA IN PERIPH VEIN, [facility] [id number] 12/11/16 TRANSFUSE NONAUT FROZEN PLASMA IN PERIPH VEIN, [facility] 19773A6 12/11/16 TRANSFUSE NONAUT PLATELETS IN PERIPH VEIN, [facility] [id number] 12/11/16 TRANSFUSE NONAUT RED BLOOD CELLS IN PERIPH VEIN, [facility] [id number] 03/20/17 UPPR GI SCOPE W/SUBMUC INJ 67722 12/11/16 Infectious Disease Assmt/Plan - Assessment Assessment: 1. Fever. resolved. 2. Right thigh abscess, versus hematoma. 3. CK D stage V on hemodialysis. 4. Diabetes mellitus type 2. - Plan Plan: Continue vanco IV and cefepime, depending the culture report will define final antibiotic therapy.
[2017-06-25] MEDS: Cefepime 1 GM in Sodium Chloride 0.9% 50 ML IV SCH (18:46)
--- NOTE | 2017-06-25 22:05 | Progress Notes ---
DATE: 06/25/2017 SUBJECTIVE: The patient seen and examined. The patient had a loose bowel movement. The patient noted to have right thigh hematoma abscess which was drained. According to the surgeon, the patient needs to have a re-debridement. The patient currently has pain, which has been adequately controlled. PHYSICAL EXAMINATION: GENERAL: Currently denies any chest pain, abdominal pain, nausea, vomiting. VITAL SIGNS: Temperature 98.1, pulse 90, respiratory 18, blood pressure 94/63. HEENT: No facial asymmetry. NECK: Supple, no JVD. HEART: Regular. CHEST: Lung equal in expansion, no wheezing, no crackles. ABDOMEN: Soft. EXTREMITIES: Remarkable for right thigh intact dressing noted. No calf tenderness. AV graft in left upper extremity noted. NEUROLOGIC: Nonfocal. CLINICAL IMPRESSION: 1. Right thigh abscess, status post incision and drainage. 2. End-stage kidney disease, on hemodialysis. 3. Diabetes. 4. Seizure. 5. History of sensorineural hearing loss. 6. Chronic pain. PLAN: The patient was scheduled for I and D. At this time, we will hold his discharge. Continue IV antibiotic as prescribed by Infectious Disease. Hemodialysis as planned. Monitor the blood sugar, blood pressure. Symptoms management as well as general nursing care. Care plan reviewed and discussed with staff. JOB# [id number]
[2017-06-25] MEDS ORDERED: D5-0.45NS 1,000 ML IV ONE (23:00)
[2017-06-26] MEDS ORDERED: Midazolam 1mg/ml 2 ml vial IV ONE (07:11)
[2017-06-26] MEDS ORDERED: fentaNYL Citrate 100 mcg/2mL Vial ONE ×2 (07:11→07:31)
[2017-06-26] MEDS ORDERED: Meperidine 50 mg/mL 1mL Syr ONE ×3 (07:11→11:16)
[2017-06-26] MEDS ORDERED: Dexamethasone Sodium Phos 4 mg/mL Vial ONE (07:12)
[2017-06-26] MEDS ORDERED: Propofol **SURGERY USE ONLY** 20 ML IV ONE (07:12)
[2017-06-26] MEDS: INSULIN ASPART SLIDING SCALE 100 UNITS/ML UNIT SUBQ SCH ×3 (08:08→16:33)
--- NOTE | 2017-06-26 08:15 | General Progress Note ---
Subjective - Review of Systems Service Date: 06/26/17 Events since last encounter: pt seen and examined Subjective: resting comfortably in bed Objective - Results Result Diagrams: 06/25/17 04:30 06/25/17 04:30 Recent Labs: Laboratory Last Values WBC 8.4 Th/cmm (4.8-10.8) 06/25/17 04:30 RBC 3.44 Mil/cmm (4.30-5.70) L 06/25/17 04:30 Hgb 10.3 gm/dL (12-16) L 06/25/17 04:30 Hct 30.2 % (41.0-60) L 06/25/17 04:30 MCV 87.8 fl (80-99) 06/25/17 04:30 MCH 29.8 pg (26.0-30.0) 06/25/17 04:30 MCHC Differential 34.0 pg (28.0-36.0) 06/25/17 04:30 RDW 12.5 % (11.5-20.0) 06/25/17 04:30 Plt Count 157 Th/cmm (150-400) 06/25/17 04:30 MPV 7.2 fl 06/25/17 04:30 Neutrophils % 70.9 % (40.0-80.0) 06/25/17 04:30 Lymphocytes % 19.0 % (20.0-50.0) L 06/25/17 04:30 Monocytes % 5.4 % (2.0-10.0) 06/25/17 04:30 Eosinophils % 4.1 % (0.0-5.0) 06/25/17 04:30 Basophils % 0.6 % (0.0-2.0) 06/25/17 04:30 PTT (Actin FS) 25.5 SECONDS (26.0-38.0) L 06/25/17 12:58 Sodium 135 mEq/L (136-145) L 06/25/17 04:30 Potassium 4.2 mEq/L (3.5-5.1) 06/25/17 04:30 Chloride 103 mEq/L (98-107) 06/25/17 04:30 Carbon Dioxide 19.3 mEq/L (21.0-31.0) L 06/25/17 04:30 Anion Gap 16.9 (7.0-16.0) H 06/25/17 04:30 BUN 35 mg/dL (7-25) H 06/25/17 04:30 Creatinine 6.6 mg/dL (0.7-1.3) H* 06/25/17 04:30 Est GFR ( Amer) 12.6 ml/min (>90) 06/25/17 04:30 Est GFR (Non-Af Amer) 10.4 ml/min 06/25/17 04:30 BUN/Creatinine Ratio 5.3 06/25/17 04:30 Glucose 90 mg/dL (70-105) 06/25/17 04:30 POC Glucose 82 MG/DL (70 - 105) 06/26/17 06:49 Calcium 9.5 mg/dL (8.6-10.3) 06/25/17 04:30 Total Bilirubin 0.5 mg/dL (0.3-1.0) 06/25/17 04:30 AST 37 U/L (13-39) 06/25/17 04:30 ALT 54 U/L (7-52) H 06/25/17 04:30 Alkaline Phosphatase 291 U/L (34-104) H 06/25/17 04:30 Total Protein 6.3 gm/dL (6.0-8.3) 06/25/17 04:30 Albumin 3.1 gm/dL (4.2-5.5) L 06/25/17 04:30 Globulin 3.2 gm/dL 06/25/17 04:30 Albumin/Globulin Ratio 1.0 (1.0-1.8) 06/25/17 04:30 Random Vancomycin 29.6 ug/mL (5.0-40.0) 06/26/17 06:50 Hepatitis A IgM Ab Negative (Negative) 06/23/17 04:30 Hep Bs Antigen Negative (Negative) 06/23/17 04:30 Hep B Core IgM Ab Negative (Negative) 06/23/17 04:30 Hepatitis C Antibody <0.1 s/co ratio (0.0-0.9) 06/23/17 04:30 - Physical Exam Vitals and I&O: Vital Signs Temp 98.4 F 06/26/17 04:00 Pulse 82 06/26/17 04:00 Resp 19 06/26/17 04:00 BP 94/58 06/26/17 04:00 Pulse Ox 99 06/26/17 04:00 Intake & Output 06/25/17 06/26/17 06/26/17 18:59 06:59 18:59 Intake Total 1000 350 Balance 1000 350 Weight (lbs) 46.176 kg 47.174 kg Intake: Intake, IV Amount 50 Cefepime 1 gm In Sodium 50 Chloride 0.9% 50 ml @ 100 mls/hr IV Q24H [facility] Rx#: [id number] Oral 1000 300 Other: # Voids 3 # Bowel Movements 1 2 Stool Characteristics Soft Active Medications: Current Medications Acetaminophen (Tylenol Extra Strength) 500 mg PO Q6H PRN PRN Reason: Fever > 101 Stop: 08/21/17 19:00 Acetaminophen/Hydrocodone Bitart ([place] 5mg/325mg) 1 tab PO Q6H PRN PRN Reason: Pain (Moderate) Stop: 08/21/17 15:21 Last Admin: 06/24/17 20:14 Dose: 1 tab Acetaminophen/Hydrocodone Bitart ([place] 10 Mg/325 Mg) 1 tab PO Q6H PRN PRN Reason: Severe Pain Stop: 08/21/17 19:48 Last Admin: 06/25/17 20:59 Dose: 1 tab Cefepime HCl 1 gm/ Sodium (Chloride) 50 mls @ 100 mls/hr IV Q24H [facility] Stop: 08/21/17 19:14 Last Infusion: 06/25/17 19:20 Dose: Infused Dextrose/Sodium Chloride (D5-0.45ns) 1,000 mls @ 50 mls/hr IV .Q20H [facility] Stop: 06/26/17 18:59 Last Admin: 06/25/17 22:30 Dose: 50 mls/hr Insulin Aspart (Novolog Insulin Sliding Scale) 0 units SUBQ ACHS RADHA PRN Reason: Protocol Stop: 08/22/17 11:29 Last Admin: 06/26/17 08:08 Dose: Not Given Levetiracetam (Keppra) 500 mg PO BID [facility] Stop: 08/21/17 21:29 Last Admin: 06/25/17 16:24 Dose: 500 mg Miscellaneous (Vancomycin Iv Per Pharmacy) 1 ea [facility] PRN PRN PRN Reason: PROTOCOL Stop: 08/21/17 15:21 Miscellaneous (Vancomycin Iv Per Pharmacy) 1 ea MC PRN [facility] Stop: 08/24/17 17:59 Sitagliptin Phosphate (Januvia) 25 mg PO DAILY [facility] Stop: 08/22/17 08:59 Last Admin: 06/25/17 08:08 Dose: 25 mg Sodium Bicarbonate (Sodium Bicarbonate) 650 mg PO DAILY [facility] Stop: 08/22/17 08:59 Last Admin: 06/25/17 08:08 Dose: 650 mg Venlafaxine HCl (Effexor Xr) 37.5 mg PO DAILY [facility] Stop: 08/22/17 08:59 Vitamin B Complex/Vit C/Folic Acid (Vitamin B Complex W/Vitamin C) 1 tab PO DAILY [facility] Stop: 08/22/17 08:59 Last Admin: 06/25/17 08:08 Dose: 1 tab General: Alert Neck: Supple Cardiovascular: Regular rate, Normal S1, Normal S2 Lungs: Clear to auscultation Abdomen: Bowel sounds, Soft, Tender Neurological: Normal gait - Procedures Procedures: Procedures Procedure Code Date ABDOMEN SURGERY PROCEDURE 51666 10/21/16 BLOOD TRANSFUSION SERVICE 45116 03/20/17 CONTROL BLEEDING IN GASTROINTESTINAL TRACT, ENDO [id number] 12/11/16 DILATION OF COMMON BILE DUCT WITH INTRALUMINAL DEVICE, ENDO [id number] 12/11/16 DRAINAGE OF RIGHT UPPER LEG, OPEN APPROACH 1L5V4ZM 06/22/17 DRAINAGE OF SKIN ABSCESS 76534 06/22/17 EGD BIOPSY SINGLE/MULTIPLE 55834 02/20/16 EGD CONTROL BLEEDING ANY 22965 12/11/16 ENDO CHOLANGIOPANCREATOGRAPH 75929 12/11/16 EXCISION OF DUODENUM, ENDO, DIAGN [id number] 02/20/16 EXCISION OF STOMACH, PYLORUS, ENDO, DIAGN [id number] 02/20/16 EXTIRPATION OF MATTER FROM COMMON BILE DUCT, ENDO [id number] 12/11/16 INTRODUCTION OF OTHER THERAPEUTIC SUBSTANCE INTO UP GI, ENDO 3R5A0FS 12/11/16 INTRODUCTION OF SERUM/TOX/VACCINE INTO MUSCLE, PERC APPROACH 3H4313D 11/05/16 PERFORMANCE OF URINARY FILTRATION, <6 HRS/DAY 9Y5O93F 03/26/17 PERFORMANCE OF URINARY FILTRATION, MULTIPLE 4I2L46M 12/11/16 PERFORMANCE OF URINARY FILTRATION, SINGLE 1O4D85W 11/05/16 RELEASE GREATER OMENTUM, OPEN APPROACH [id number] 10/21/16 RELEASE LIVER, OPEN APPROACH [id number] 10/21/16 REMOVAL OF GALLBLADDER 85678 10/21/16 RESECTION OF GALLBLADDER, OPEN APPROACH [id number] 10/21/16 TRANSFUSE NONAUT FRESH PLASMA IN PERIPH VEIN, [facility] 16549R2 12/11/16 TRANSFUSE NONAUT FROZEN PLASMA IN PERIPH VEIN, [facility] 91572F5 12/11/16 TRANSFUSE NONAUT PLATELETS IN PERIPH VEIN, [facility] [id number] 12/11/16 TRANSFUSE NONAUT RED BLOOD CELLS IN PERIPH VEIN, [facility] 87868P3 03/20/17 UPPR GI SCOPE W/SUBMUC INJ 05291 12/11/16 Assessment/Plan - Assessment Assessment: thigh abscess DM HTN ESRD ANEMIA - Plan Plan: s/p I and D of thigh abscess plan for HD today
[2017-06-26] MEDS: Vitamin B Complex w/Vitamin C Tab PO SCH (09:57)
--- NOTE | 2017-06-26 10:13 | Progress Notes ---
DATE: 06/26/2017 SUBJECTIVE: The patient seen and examined. The patient is scheduled to have I and D done by Dr. No today. The patient is also scheduled to have hemodialysis. The patient is anxious to go home. I did have a discussion with the patient's mother about discharge planning, after patient have the procedure done. The patient currently has no new complaint. Blood sugars were elevated yesterday, which required additional doses of insulin. OBJECTIVE: Today's exam, VITAL SIGNS: Temperature 98.4, pulse 82, respiratory rate is 18, blood pressure 94/58. HEENT: Poor dentition. Furuncles on the right eyebrow noted. NECK: Supple. No JVD. HEART: Regular. CHEST AND LUNG: Equal in expansion with no expiratory wheezing. ABDOMEN: Soft. No guarding, rigidity. Bowel sounds are present. No palpable mass. EXTREMITIES: Right upper extremity AV graft with good bruit. Right thigh and medial aspect thigh dry crusted wound noted. CLINICAL IMPRESSION: 1. Right thigh abscess versus hematoma, knee surgery, debridement. 2. End-stage kidney disease, hemodialysis. 3. Diabetes. 4. Seizure disorder. 5. Sensorineural hearing loss. 6. Chronic pain. PLAN: 1. Continue antibiotic. 2. Wound care. 3. Debridement. 4. Hemodialysis. 5. Pain management. 6. Diabetes management. 7. General nursing care. 8. Follow lab. 9. Follow consult and recommendation. 10. Care plan reviewed and discussed with staff. JOB# [id number]
[2017-06-26] MEDS ORDERED: Sodium Chloride 0.9% 1,000 ML IV SCH (12:00)
[2017-06-26] MEDS ORDERED: Meperidine 25 mg/mL 1mL Syr IVP PRN (12:00)
[2017-06-26] MEDS ORDERED: fentaNYL Citrate 100 mcg/2mL Vial IVP PRN (12:00)
[2017-06-26] MEDS ORDERED: Probiotic Screen MC PRN (12:30)
--- NOTE | 2017-06-26 13:37 | History & Physical ---
ADMIT DATE: 06/23/2017 REFERRING PHYSICIAN: Dr. Davis. REASON FOR CONSULTATION: Infected wound, right thigh. Thank you for referring this patient to me. HISTORY OF PRESENT ILLNESS: This is a 31-year-old male with known history of seizure disorder, end-stage renal disease, deafness, chronic anemia, anxiety and diabetes. He was noted to have an infected wound in the right thigh for about a week. Mother who is a pharmacist brought the patient to the ER where it was drained, now with bloody discharge. LABORATORY STUDIES: On admission, the WBC was normal. BUN is 31, creatinine of 5.8. PHYSICAL EXAMINATION: The patient is deaf. The right thigh at the its medial aspect midpoint shows hematoma with incision through it measuring approximately 8 cm. This is very tender to touch. Rest of the extremity is unremarkable. RECOMMENDATIONS: Suggest debridement of the wound and evacuation of hematoma. JOB# [id number]
--- NOTE | 2017-06-26 13:53 | Infectious Disease Prog Note ---
Infectious Disease Subjective - Review of Systems Service Date: 06/26/17 Subjective: No new change, no fever. Infectious Disease Objective - Results Result Diagrams: 06/25/17 04:30 06/25/17 04:30 Recent Labs: Laboratory Last Values WBC 8.4 Th/cmm (4.8-10.8) 06/25/17 04:30 RBC 3.44 Mil/cmm (4.30-5.70) L 06/25/17 04:30 Hgb 10.3 gm/dL (12-16) L 06/25/17 04:30 Hct 30.2 % (41.0-60) L 06/25/17 04:30 MCV 87.8 fl (80-99) 06/25/17 04:30 MCH 29.8 pg (26.0-30.0) 06/25/17 04:30 MCHC Differential 34.0 pg (28.0-36.0) 06/25/17 04:30 RDW 12.5 % (11.5-20.0) 06/25/17 04:30 Plt Count 157 Th/cmm (150-400) 06/25/17 04:30 MPV 7.2 fl 06/25/17 04:30 Neutrophils % 70.9 % (40.0-80.0) 06/25/17 04:30 Lymphocytes % 19.0 % (20.0-50.0) L 06/25/17 04:30 Monocytes % 5.4 % (2.0-10.0) 06/25/17 04:30 Eosinophils % 4.1 % (0.0-5.0) 06/25/17 04:30 Basophils % 0.6 % (0.0-2.0) 06/25/17 04:30 PTT (Actin FS) 25.5 SECONDS (26.0-38.0) L 06/25/17 12:58 Sodium 135 mEq/L (136-145) L 06/25/17 04:30 Potassium 4.2 mEq/L (3.5-5.1) 06/25/17 04:30 Chloride 103 mEq/L (98-107) 06/25/17 04:30 Carbon Dioxide 19.3 mEq/L (21.0-31.0) L 06/25/17 04:30 Anion Gap 16.9 (7.0-16.0) H 06/25/17 04:30 BUN 35 mg/dL (7-25) H 06/25/17 04:30 Creatinine 6.6 mg/dL (0.7-1.3) H* 06/25/17 04:30 Est GFR ( Amer) 12.6 ml/min (>90) 06/25/17 04:30 Est GFR (Non-Af Amer) 10.4 ml/min 06/25/17 04:30 BUN/Creatinine Ratio 5.3 06/25/17 04:30 Glucose 90 mg/dL (70-105) 06/25/17 04:30 POC Glucose 102 MG/DL (70 - 105) 06/26/17 12:43 Calcium 9.5 mg/dL (8.6-10.3) 06/25/17 04:30 Total Bilirubin 0.5 mg/dL (0.3-1.0) 06/25/17 04:30 AST 37 U/L (13-39) 06/25/17 04:30 ALT 54 U/L (7-52) H 06/25/17 04:30 Alkaline Phosphatase 291 U/L (34-104) H 06/25/17 04:30 Total Protein 6.3 gm/dL (6.0-8.3) 06/25/17 04:30 Albumin 3.1 gm/dL (4.2-5.5) L 06/25/17 04:30 Globulin 3.2 gm/dL 06/25/17 04:30 Albumin/Globulin Ratio 1.0 (1.0-1.8) 06/25/17 04:30 Random Vancomycin 29.6 ug/mL (5.0-40.0) 06/26/17 06:50 Hepatitis A IgM Ab Negative (Negative) 06/23/17 04:30 Hep Bs Antigen Negative (Negative) 06/23/17 04:30 Hep B Core IgM Ab Negative (Negative) 06/23/17 04:30 Hepatitis C Antibody <0.1 s/co ratio (0.0-0.9) 06/23/17 04:30 - Physical Exam Vitals and I&O: Vital Signs Temp 97 F 06/26/17 08:05 Pulse 77 06/26/17 08:05 Resp 18 06/26/17 08:05 BP 87/47 06/26/17 08:05 Pulse Ox 99 06/26/17 08:05 Intake & Output 06/25/17 06/26/17 06/26/17 18:59 06:59 18:59 Intake Total 1000 350 Balance 1000 350 Weight (lbs) 46.176 kg 47.174 kg Intake: Intake, IV Amount 50 Cefepime 1 gm In Sodium 50 Chloride 0.9% 50 ml @ 100 mls/hr IV Q24H [facility] Rx#: [id number] Oral 1000 300 Other: # Voids 3 # Bowel Movements 1 2 Stool Characteristics Soft Active Medications: Current Medications Acetaminophen (Tylenol Extra Strength) 500 mg PO Q6H PRN PRN Reason: Fever > 101 Stop: 08/21/17 19:00 Acetaminophen/Hydrocodone Bitart ([place] 5mg/325mg) 1 tab PO Q6H PRN PRN Reason: Pain (Moderate) Stop: 08/21/17 15:21 Last Admin: 06/24/17 20:14 Dose: 1 tab Acetaminophen/Hydrocodone Bitart ([place] 10 Mg/325 Mg) 1 tab PO Q6H PRN PRN Reason: Severe Pain Stop: 08/21/17 19:48 Last Admin: 06/25/17 20:59 Dose: 1 tab Fentanyl Citrate (Sublimaze) 50 mcg IVP UD PRN PRN Reason: Pain (Moderate) Stop: 06/27/17 11:59 Cefepime HCl 1 gm/ Sodium (Chloride) 50 mls @ 100 mls/hr IV Q24H [facility] Stop: 08/21/17 19:14 Last Infusion: 06/25/17 19:20 Dose: Infused Dextrose/Sodium Chloride (D5-0.45ns) 1,000 mls @ 50 mls/hr IV .Q20H ONE Stop: 06/26/17 18:59 Last Admin: 06/25/17 22:30 Dose: 50 mls/hr Sodium Chloride (Nacl 0.9%) 1,000 mls @ 100 mls/hr IV .Q10H [facility] Stop: 06/27/17 11:59 Insulin Aspart (Novolog Insulin Sliding Scale) 0 units SUBQ ACHS RADHA PRN Reason: Protocol Stop: 08/22/17 11:29 Last Admin: 06/26/17 12:58 Dose: Not Given Lactobacillus Rhamnosus (Culturelle 15b) 1 each PO DAILY RADHA Stop: 08/26/17 08:59 Levetiracetam (Keppra) 500 mg PO BID RADHA Stop: 08/21/17 21:29 Last Admin: 06/26/17 09:57 Dose: Not Given Meperidine HCl (Demerol) 12.5 mg IVP UD PRN PRN Reason: POST-OP PAIN Stop: 06/27/17 11:59 Miscellaneous (Vancomycin Iv Per Pharmacy) 1 ea MC PRN RADHA Stop: 08/24/17 17:59 Miscellaneous (Probiotic Screen) 1 ea PRN PRN PRN Reason: PROTOCOL Stop: 08/25/17 12:29 Ondansetron HCl (Zofran) 4 mg IV UD PRN PRN Reason: Nausea / Vomiting Stop: 06/27/17 11:59 Sitagliptin Phosphate (Januvia) 25 mg PO DAILY RADHA Stop: 08/22/17 08:59 Last Admin: 06/26/17 09:57 Dose: Not Given Sodium Bicarbonate (Sodium Bicarbonate) 650 mg PO DAILY RADHA Stop: 08/22/17 08:59 Last Admin: 06/26/17 09:57 Dose: Not Given Venlafaxine HCl (Effexor Xr) 37.5 mg PO DAILY RADHA Stop: 08/22/17 08:59 Vitamin B Complex/Vit C/Folic Acid (Vitamin B Complex W/Vitamin C) 1 tab PO DAILY RADHA Stop: 08/22/17 08:59 Last Admin: 06/26/17 09:57 Dose: Not Given General: no acute distress, well developed, well nourished HEENT: atraumatic, normocephalic, PERRLA Neck: supple, no thyromegaly, no lymphadenopathy Cardiovascular: S1S2, regular Lungs: clear to auscultation bilaterally, clear to percussion Abdomen: soft, no tender, no distended Extremities: other (right inner thigh wound, no eerythema. tenderness improving. ), no cyanosis, no clubbing Neurological: awake, alert, oriented Skin: intact - Procedures Procedures: Procedures Procedure Code Date ABDOMEN SURGERY PROCEDURE 82766 10/21/16 BLOOD TRANSFUSION SERVICE 38691 03/20/17 CONTROL BLEEDING IN GASTROINTESTINAL TRACT, ENDO [id number] 12/11/16 DILATION OF COMMON BILE DUCT WITH INTRALUMINAL DEVICE, ENDO [id number] 12/11/16 DRAINAGE OF RIGHT UPPER LEG, OPEN APPROACH [id number] 06/22/17 DRAINAGE OF SKIN ABSCESS 41133 06/22/17 EGD BIOPSY SINGLE/MULTIPLE 56571 02/20/16 EGD CONTROL BLEEDING ANY 58852 12/11/16 ENDO CHOLANGIOPANCREATOGRAPH 92938 12/11/16 EXCISION OF DUODENUM, ENDO, DIAGN [id number] 02/20/16 EXCISION OF STOMACH, PYLORUS, ENDO, DIAGN [id number] 02/20/16 EXTIRPATION OF MATTER FROM COMMON BILE DUCT, ENDO [id number] 12/11/16 INTRODUCTION OF OTHER THERAPEUTIC SUBSTANCE INTO UP GI, ENDO [id number] 12/11/16 INTRODUCTION OF SERUM/TOX/VACCINE INTO MUSCLE, PERC APPROACH [id number] 11/05/16 PERFORMANCE OF URINARY FILTRATION, <6 HRS/DAY [id number] 03/26/17 PERFORMANCE OF URINARY FILTRATION, MULTIPLE 5X3D53I 12/11/16 PERFORMANCE OF URINARY FILTRATION, SINGLE 5N7K22H 11/05/16 RELEASE GREATER OMENTUM, OPEN APPROACH [id number] 10/21/16 RELEASE LIVER, OPEN APPROACH [id number] 10/21/16 REMOVAL OF GALLBLADDER 41569 10/21/16 RESECTION OF GALLBLADDER, OPEN APPROACH [id number] 10/21/16 TRANSFUSE NONAUT FRESH PLASMA IN PERIPH VEIN, [facility] 72785W2 12/11/16 TRANSFUSE NONAUT FROZEN PLASMA IN PERIPH VEIN, [facility] 74322R7 12/11/16 TRANSFUSE NONAUT PLATELETS IN PERIPH VEIN, [facility] 00480O6 12/11/16 TRANSFUSE NONAUT RED BLOOD CELLS IN PERIPH VEIN, [facility] 96177Q0 03/20/17 UPPR GI SCOPE W/SUBMUC INJ 14411 12/11/16 Infectious Disease Assmt/Plan - Assessment Assessment: 1. Fever. resolved. 2. Right thigh abscess, versus hematoma. 3. CK D stage V on hemodialysis. 4. Diabetes mellitus type 2. - Plan Plan: Continue cefepime, depending the culture report will define final antibiotic therapy. Nutritional Asmnt/Malnutr-PDOC - Dietary Evaluation Malnutrition Findings (Please click <Entered> for more info): Nutritional Asmnt/Malnutrition Start: 06/26/17 11: 00 Text: Status: Complete Freq: Document 02/19/18 11:00 [email or web address] (Rec: 06/26/17 11:06 [email or web address]) Nutritional Asmnt/Malnutrition Patient General Information Nutritional Screening Moderate Risk Diagnosis abcess right inner thigh Pertinent Medical Hx/Surgical Hx ESRD on HD, seizure, anemia, DM, anxiety, depression Subjective Information [place]. Pt NPO for I&D today. PO intake is 10-100%, pt also eating food from home. Pt lives with parents and mother cooks foods, pt unaware if mother follows renal diet. Pt unaware of renal diet, but not appropriate for diet education. Unsure if outside food is diet compliant. Pt does not know dry wt. Current Diet Order/ Nutrition Support renal Patient / S.O Can't verbalize diet edu Pertinent Medications insulin, januvia, nephrovite Pertinent Labs 06/25 Na: 135, glucose: 82-515, alk phos: 29 Nutritional Hx/Data Height 1.57 m Height (Calculated Centimeters) 157.5 Current Weight (lbs) 47.174 kg Weight (Calculated Kilograms) 47.2 Weight (Calculated Grams) 46411.6 [place] Body Weight 118 % [place] Body Weight 88 Body Mass Index (BMI) 19.0 Recent Weight Change No Weight Status Approriate GI Symptoms GI Symptoms None Last BM 06/23 Difficult in: None Food Allergies No Skin Integrity/Comment: abcess to right inner thihg, no edema Current %PO Fair (50-74%) Estimated Nutritional Goals BEE in Kcals: Using Current wt Calories/Kcals/Kg 30-35 Kcals Calculated 4282-1987 Protein: Using Current wt Protein g/k.2-1.5 Protein Calculated 56-71 g Fluid: ml per MD Nutritional Problem 2. Problem Problem food nutrition related knowledge deficit Etiology ESRD on HD Signs/Symptoms: pt unable to state renal restrictions, eating food from outside that may not comply with diet 1. Problem Problem inadequate oral intake Etiology variable appetite? Signs/Symptoms: PO intake: 10-100% Malnutrition Alert Is there a minimum of two criteria No selected? Query Text:Check all the applicable criteria. A minimum of two criteria are recommended for diagnosis of either severe or non-severe malnutrition. Malnutrition Related to Morbid Obesity Malnutrition related to morbid obesity No Intervention/Recommendation Recommendations by RD Increase Calorie Intake Protein supplementation Comments 1. Add Novasource renal BID breakfast and dinner for kcals and protein Expected Outcomes/Goals Expected Outcomes/Goals po intake >50%, pt to follow renal diet monitor wt, labs, skin, PO intake
[2017-06-26] MEDS ORDERED: Albumin 25% 25gm/100mL 25 GM/100 ML BTL IV ONE (15:00)
--- NOTE | 2017-06-26 15:01 | Operative Report ---
DATE OF SURGERY: 06/26/2017 PREOPERATIVE DIAGNOSES: 1. Hematoma/abscess right thigh. 2. Diabetes mellitus. 3. Seizure disorder. 4. End-stage renal disease, on hemodialysis. POSTOPERATIVE DIAGNOSES: 1. Hematoma/abscess right thigh. 2. Diabetes mellitus. 3. Seizure disorder. 4. End-stage renal disease, on hemodialysis. OPERATION DONE: 1. Excisional debridement of right thigh hematoma with evacuation. 2. Culture and sensitivity of the wound. SURGEON: Marybel Jacinto MD ANESTHESIA: MAC. ANESTHESIOLOGIST: Dr. Javier. PROCEDURE: The patient was given heavy IV sedation. The right thigh region was prepped with Betadine and draped. An incision was made across the dome with a hematoma and the hematoma was evacuated. No necrotic tissue was noted. Cultures were taken. The wound was packed with iodoform gauze. The patient tolerated the procedure. [facility]# [id number]
[2017-06-26] MEDS ORDERED: Venlafaxine HCl ER 37.5 mg Tab PO SCH (17:00)
[2017-06-26] MEDS: Cefepime 1 GM in Sodium Chloride 0.9% 50 ML IV SCH (17:34)
[2017-06-27] MEDS ORDERED: Lactobacillus Rhamnosus GG 15 Billion CFU CAP.SPRINK PO SCH (09:00)
--- NOTE | 2017-07-12 15:00 | Discharge Summary ---
DATE OF DISCHARGE: 06/26/2017 PRINCIPAL DIAGNOSES: 1. Right thigh abscess, status post I and D. 2. End-stage kidney disease, on hemodialysis. 3. Diabetes mellitus. 4. Seizure disorder. 5. Sensorineural hearing loss. 6. Chronic pain. 7. Anemia of chronic kidney disease. BRIEF STATEMENT FOR THE REASON FOR ADMISSION: The patient was presented to Emergency Room for right thigh swelling and pain where the patient was seen by Emergency Room MD and noted to have an abscess, which was drained. Unfortunately, the patient with significant amount of pain and needed to have further treatment. The patient was admitted. Please refer to my dictated H and P for further information. HOSPITAL COURSE: The patient was admitted to Med/Surg floor. The patient was placed on his home medication along with antibiotic as well. Infectious Disease consultation was requested. Nephrology consult was requested. The patient was seen by surgeon as well and had a redo I and D as well. The patient's family were informed of the patient's condition, diagnosis, and treatment plan. The patient was clinically improving, so decision was made that the patient should be discharged to home. The patient was discharged home with home health visiting nurse to provide wound care along with p.o. antibiotic as well. At the time of discharge, all of his medications were reconciliated. The patient will be followed by myself at my office in 1 week as well as hemodialysis to be done as an outpatient three times a week by [facility]. JOB# [id number]
== END 2017-06-26 18:45 | disposition home or self-care (01) | DRG 602 ==
LOC: ER 10:31 → MSI 12:49
PROVIDERS: ADMIT Internal Medicine; ATTEND Internal Medicine
PROC: 0H9KXZZ Drainage of Right Lower Leg Skin, External Approach (ICD-10-PCS; 2017-06-22)
PROC: 5A1D70Z Performance of Urinary Filtration, Intermittent, Less than 6 Hours Per Day (ICD-10-PCS; 2017-06-23)
PROC: 0HCKXZZ Extirpation of Matter from Right Lower Leg Skin, External Approach (ICD-10-PCS; principal; 2017-06-26)
DX: L02.415 Cutaneous abscess of right lower limb (principal); N18.6 End stage renal disease; E11.22 Type 2 diabetes mellitus with diabetic chronic kidney disease; I12.0 Hypertensive chronic kidney disease with stage 5 chronic kidney disease or end stage renal disease; H90.5 Unspecified sensorineural hearing loss; D63.1 Anemia in chronic kidney disease; F32.9 Major depressive disorder, single episode, unspecified; L02.02 Furuncle of face; G40.909 Epilepsy, unspecified, not intractable, without status epilepticus; F41.9 Anxiety disorder, unspecified; H00.031 Abscess of right upper eyelid; G89.29 Other chronic pain; M79.81 Nontraumatic hematoma of soft tissue; Z99.2 Dependence on renal dialysis; Z79.4 Long term (current) use of insulin; Z82.49 Family history of ischemic heart disease and other diseases of the circulatory system; Z83.3 Family history of diabetes mellitus
CPT/HCPCS: 10060; 36415-UA; 80048-TC; 80053-TC; 80074-90; 80202-TC; 82948-90; 85025-TC; 85730-TC; 87070-90; 87075-90; 87205-90; 90937; 96375; J0692; J1100; J1170; J1815; J1885; J2250; J2405; J2704; J3010; J3370; J7030; J7799; P9046; X6024; Z7610